=== PATIENT | male | born 1935 | race Caucasian/White ===

== ENCOUNTER 2021-01-18 16:08 | Inpatient (IN) | payer MEDICARE, OTHER ==
[~2021-01-18] VITALS: Ht 177.8 cm; Wt 73.9 kg
--- NOTE | 2021-01-18 16:10 | NUR ---
[facility]IB [facility],ALTERED/NOT COMMUNICATING WHEN STAFF WENT TO SEE HIM AT 1430. PATIENT A/OXO. ON 15LPM VIA NRB WITH SPO2 OF 90%. PLACED ON THE TEST LAB TECHNICIAN.
--- NOTE | 2021-01-18 16:33 | NUR ---
ETOMIDATE AND AMANDA GIVEN VIA IV.
--- NOTE | 2021-01-18 16:40 | NUR ---
PATIENT INTUBATED, ET SIZE 7.5, WITH 24CM ON THE LIP. ALBERT. CHEST RISE, + COLOR CHANGE.
--- NOTE | 2021-01-18 16:50 | NUR ---
NG INSERTED ON THE RIGHT NOSTRIL 60CM ON THE TIP OF NOSE.
--- NOTE | 2021-01-18 16:52 | NUR ---
ATTEMPTED TO INSERT A GONCALVES CATHETER, MET WITH RESISTANCE, INFORMED DR. MARTINEZ.
[2021-01-18] MEDS ORDERED: FERR300L GT (16:56)
[2021-01-18] MEDS ORDERED: AMLO10TA4 GT (16:56)
[2021-01-18] MEDS ORDERED: BICA50TA8 GT (16:56)
[2021-01-18] MEDS ORDERED: ATOR10TA GT (16:56)
[2021-01-18] MEDS ORDERED: TIMO5SOL11 EACHEYE (16:56)
[2021-01-18] MEDS ORDERED: FOLI0.4T6 GT (16:56)
[2021-01-18] MEDS ORDERED: BISA10SU11 RC (16:56)
[2021-01-18] MEDS ORDERED: ESCI10TA GT (16:56)
[2021-01-18] MEDS ORDERED: ACET-868 GT (16:56)
[2021-01-18] MEDS ORDERED: BRIM5DRO3 EACHEYE (16:56)
[2021-01-18] MEDS ORDERED: ASPI-1169 GT (16:56)
[2021-01-18] MEDS ORDERED: PIPE3.379 IV (16:56)
[2021-01-18] MEDS ORDERED: DOCU50LI GT (16:56)
[2021-01-18] MEDS ORDERED: LISI-768 GT (16:56)
[2021-01-18] MEDS ORDERED: LATA2.5D15 EACHEYE (16:56)
[2021-01-18] MEDS ORDERED: MAGN400O6 GT (16:56)
[2021-01-18] MEDS ORDERED: PANT40SU2 GT (16:56)
[2021-01-18] MEDS ORDERED: LORA10TA7 GT (16:56)
[2021-01-18] MEDS ORDERED: BACL10TA GT (16:56)
[2021-01-18] MEDS ORDERED: PYRI25TA4 GT (16:56)
[2021-01-18] MEDS ORDERED: ACET-2605 GT (16:56)
[2021-01-18] MEDS ORDERED: NA P133E RC (16:56)
[2021-01-18] MEDS ORDERED: VANC1PLA9 IV (16:56)
[2021-01-18 17:03] LABS: BASOPHILS % (AUTO) 0.6 % (0.0-2.0); EOSINOPHILS % (AUTO) 0.4 % (0.0-6.0); HEMATOCRIT 33 % (39-51); LYMPHOCYTES # (AUTO) 0.5 /CMM (0.8-4.8); MEAN CORPUSCULAR HGB CONC 33 g/dl (31.0-36.0); MEAN CORPUSCULAR VOLUME 96 fL (80-96); MONOCYTES # (AUTO) 0.4 /CMM (0.1-1.30); MONOCYTES % (AUTO) 13.3 % (2.0-12.0); NEUTROPHILS # (AUTO) 2.2 /CMM (1.8-8.9); NEUTROPHILS % (AUTO) 70.7 % (43.0-81.0); PLATELET COUNT (AUTO) 232 /CMM (150-450); RED BLOOD CELL COUNT(AUTO) 3.47 MIL/uL (4.5-6.0); WHITE BLOOD COUNT (AUTO) 3.1 K/uL (4.3-11.0)
[2021-01-18 17:10] LABS: CALCIUM, SERUM 8.4 mg/dL (8.5-10.1); CREATININE 1.1 mg/dL (0.6-1.3)
[2021-01-18 17:16] LABS: ALBUMIN 2.3 g/dL (3.4-5.0); BILIRUBIN,DIRECT 0.2 mg/dL (0.0-0.2); BILIRUBIN,TOTAL 0.3 mg/dL (0.2-1.0); TOTAL PROTEIN, SERUM 6.4 g/dL (6.4-8.2)
--- NOTE | 2021-01-18 17:22 | NUR ---
RN FOR MIDLINE AT BEDSIDE FOR INSERTION.
[2021-01-18] MEDS ORDERED: VANCOMYCIN 1 GM in IV D5W 250 ML IV ONE (17:30)
[2021-01-18] MEDS ORDERED: MEROPENEM 1,000 MG in IV NS 0.9% 100 ML IV ONE (17:30)
[2021-01-18 17:42] LABS: ABG BASE EXCESS 3.4 mmol/L; ABG OXYGEN SATURATION 96.3 % (92.0-98.5); ABG PCO2 51.4 mmHg (35.0-45.0); ABG PH 7.376 (7.350-7.450); ABG PO2 94.4 mmHg (75.0-100.0); AaDO2 567.2 mmHg; COHb 0.3 % (0.5-1.5); MetHb 0.7 % (0.0-1.5); O2Hb 95.3 % (94.0-97.0); PEEP,BG 5 cm H2O; SITE, ABG Right Radial
--- NOTE | 2021-01-18 17:50 | NUR ---
RN UNABLE TO INSERT MIDLINE. CALLED ANOTHER RN.
[2021-01-18] MEDS ORDERED: MIDAZOLAM HCL 100 MG in IV NS 0.9% 80 ML IV PRN (18:00)
[2021-01-18] MEDS ORDERED: IV NS 0.9% 1,000 ML BAG IV ONE (18:00)
[2021-01-18] MEDS ORDERED: FENTANYL CITRAT IV 2,500 MCG in IV NS 0.9% 200 ML IV PRN (18:00)
--- NOTE | 2021-01-18 18:18 | NUR ---
PATIENT CAME BACK FROM CT. VSS
--- NOTE | 2021-01-18 18:21 | NUR ---
PATIENT EYES REMAINS CLOSED, NON-VERBAL, ET TUBE IN PLACED. TOLERATING CURRENT VENT SETTINGS.
--- NOTE | 2021-01-18 18:30 | NUR ---
RT NOTE, PT. 85 Y OLD MALE REC. IN ER # 8 ALTERED STATUS. X2 RT AT THE BEDSIDE. ASSISTED DR. MARTINEZ FOR INTUBATION, ETT # 7.5 @ 24 CM LIP LINE. GOOD COLOR EXCHANGED NOTED, EQUAL CHEST RISE. PLACED ON VENT WITH NOTED SETTINGS, ALARMS ARE SET AND FUNCTIONAL, VENT PLUGGED INTO RED OUTLET, AMBU BAG REMAIN AT THE BEDSIDE. SUX'D FOR MOD. AMT YELLOW SECRETIONS, POST ABG DONE AND RESULTS READ BACK TO DR. MARTINEZ NO CHANGES PT. TRANSFERRED TO CT SCAN AND BACK TO ER # 8 PT. REMAIN STABLE, REPORT WILL PASS TO PM SHIFT. Addendum: 01/18/21 at 1833 by BLAYNE TA RT Amended: Links added.
[2021-01-18] MEDS ORDERED: POTASSIUM CL. PREMIX PERIPHER. 100 ML ONE ×2 (18:41→19:01)
[2021-01-18] MEDS ORDERED: ETOMIDATE 2 MG/ML VIAL IV ONE (18:45)
[2021-01-18] MEDS: POTASSIUM CL. PREMIX PERIPHER. 50 ML IV SCH ×4 (18:48→22:08)
[2021-01-18] MEDS ORDERED: MAGNESIUM HYDROXIDE 30 ML UDC GT PRN (19:00)
[2021-01-18] MEDS ORDERED: ACETAMINOPHEN 650 MG/SUPP.RECT RC PRN (19:00)
[2021-01-18] MEDS ORDERED: NA PHOS,M-B/NA PHOS,DI-BA 1 EA ENEMA RC PRN (19:00)
--- NOTE | 2021-01-18 19:00 | NUR ---
MYLES NEWBERRY GAVE CONSENT FOR A PICC LINE VIA TELEPHONE WITNESSED BY ANOTHER RN.
--- NOTE | 2021-01-18 19:06 | NUR ---
REPORT GIVEN TO HELEN TELLEZ FOR SANDY
--- NOTE | 2021-01-18 19:14 | NUR ---
PICC LINE NURSE AT BEDSIDE. DR. MARTINEZ SIGNED CONSENT FOR PROCEDURE.
--- NOTE | 2021-01-18 19:50 | NUR ---
ADMITTED PT FROM ER VIA [facility], ON ETT/VENT SETTING PER MD FIO2 100% SPO2 100% HAVE MK PICCLINE WITH ONGOING KCL 10 MEQ IV @ 50ML/HR INFUSING WELL, SAFELY TRANSFER FROM [facility] TO BED, HEAD TO TOE ASSESSMENT DONE, INITIAL ASSESSMENT DONE, PT HAVE GTUBE CLAMPED, PLACEMENT WAS CHECKED AND VERIFIED, PT HAVE BILATERAL WRIST SOFT RESTRAINTS FOR ETT TUBE EXTUBATION PREVENTION CIRCULATION WILL CHECKED REGULARLY, BED ON LOWEST POSITION AND LOCKED SIDE RAILS UP X 2 WILL CONT TO MONITOR
--- NOTE | 2021-01-18 19:52 | NUR ---
PT TRANSFERED PER ACLS PROTOCOL
[2021-01-18 20:00] VITALS: BP 140/96
[2021-01-18] MEDS: PROPOFOL 100 ML IV PRN (20:29)
[2021-01-18] MEDS: IV 1/2NS 1000 ML 1,000 ML IV PRN (20:30)
[2021-01-18] MEDS ORDERED: IV NS 0.9% 250 ML IV PRN (20:30)
[2021-01-18] MEDS: ENOXAPARIN SODIUM 40 MG/0.4 ML DISP.SYRIN SQ SCH (20:31)
[2021-01-18 21:00] VITALS: BP 106/55
[2021-01-18] MEDS ORDERED: MEROPENEM 1 G in IV NS 0.9% 100 ML IV SCH (21:00)
[2021-01-18 22:00] VITALS: BP 113/59
[2021-01-18] MEDS ORDERED: ATORVASTATIN 10 MG TABLET GT SCH (22:00)
--- NOTE | 2021-01-18 22:00 | NUR ---
PER ZACH PATHAK SURVEY CAD TECHNICIAN PT RECEIVED 2 DOSE OF PFIZER COVID VACCINE 1ST DOSE 09/03/2020 AND 2ND DOSE IS 09/24/2020
--- NOTE | 2021-01-18 22:01 | NUR ---
Patient is admitted to ICU intubated/sedated. He resides at [facility] [phone]. He requires assistance with adl's. Will continue to monitor for dc planning needs once stable. Addendum: 01/18/21 at 2202 by EDIE KENNY RN Amended: Links added.
[2021-01-18] MEDS: LATANOPROST EYE DROP 0.005% 2.5 ML BOTTLE EACHEYE SCH (22:09)
[2021-01-18] MEDS: ATORVASTATIN 40 MG TABLET GT SCH (22:09)
[2021-01-18 23:00] VITALS: BP 117/51
[2021-01-19] VITALS (24 sets, daily range): BP systolic 95–136; BP diastolic 49–67
--- NOTE | 2021-01-19 00:27 | NUR ---
PT STILL ON ETT/VENT SETTING PER MD FIO2 80% SPO2 100% STILL SEDATED WITH PROPOFOL @ 25MCG/KG/MIN NO SIGN OF ANY RESPIRATORY DISTRESS, WILL CONT TO MONITOR
[2021-01-19] MEDS: MEROPENEM 1 G in IV NS 0.9% 100 ML IV SCH ×3 (01:10→17:13)
[2021-01-19] MEDS: PROPOFOL 100 ML IV PRN ×3 (04:22→17:52)
[2021-01-19 04:24] LABS: BASOPHILS % (AUTO) 0.3 % (0.0-2.0); EOSINOPHILS % (AUTO) 0.3 % (0.0-6.0); HEMATOCRIT 29 % (39-51); HEMOGLOBIN 9.7 g/dL (13.5-17.5); LYMPHOCYTES # (AUTO) 0.6 /CMM (0.8-4.8); LYMPHOCYTES % (AUTO) 12.5 % (20.0-44.0); MEAN CORPUSCULAR HGB CONC 33 g/dl (31.0-36.0); MEAN CORPUSCULAR VOLUME 95 fL (80-96); MONOCYTES # (AUTO) 0.4 /CMM (0.1-1.30); MONOCYTES % (AUTO) 9.5 % (2.0-12.0); NEUTROPHILS # (AUTO) 3.6 /CMM (1.8-8.9); NEUTROPHILS % (AUTO) 77.4 % (43.0-81.0); PLATELET COUNT (AUTO) 204 /CMM (150-450); RED BLOOD CELL COUNT(AUTO) 3.05 MIL/uL (4.5-6.0); WHITE BLOOD COUNT (AUTO) 4.7 K/uL (4.3-11.0)
[2021-01-19 04:48] LABS: CALCIUM, SERUM 8.3 mg/dL (8.5-10.1); CREATININE 0.8 mg/dL (0.6-1.3); POTASSIUM 3.6 mmol/L (3.5-5.1)
--- NOTE | 2021-01-19 06:43 | NUR ---
PT ON BED SEDATED STILL ON ETT/VENT SETTING PER MD FIO2 60% SPO2 97% NO SIGN AND SYMPTOMS OF RESPIRATORY DISTRESS, NO PAIN NOTED, ON DIPRIVAN @ 25MCG/KG/MIN AND 1/2 NS @ 75ML/HR INFUSING WELL VIA MK PICCLINE, TELE MONITOR READS SINUS RHYTHM WITH PVCS 80'S , STILL HAVE BILATERAL WRIST SOFT RESTRAINTS FOR SELF EXTUBATION PREVENTION CIRCULATION WAS CHECKED AND WNL, BED ON LOWEST POSITION AND LOCKED SIDE RAILS UP X2 CALL LIGHT WITHIN REACH WILL ENDORSED TO AM SHIFT NURSE
--- NOTE | 2021-01-19 07:05 | NUR ---
RN NOTES RECEIVED PT ON BED, INTUBATED, SEDATED, ON DIPRIVAN AT 25MCG/KG/MIN, RESPONDS TO PAINFUL STIMULI , TOLERAING VENT SETTING WELL, O2 SAT WNL, 1/2 NS @ 75ML/HR INFUSING WELL VIA MK PICC LINE, ON TELE SR HR IN 80'S , BILATERAL WRIST SOFT RESTRAINTS ON FOR PT SAFETY, AND FOR SELF EXTUBATION PREVENTION CIRCULATION WAS CHECKED AND WNL, BED ON LOWEST POSITION AND LOCKED SIDE RAILS UP X3 CALL LIGHT WITHIN EASY REACH , WILL CONTINUE TO MONITOR .
[2021-01-19 08:13] LABS: ABG BASE EXCESS 2.1 mmol/L; ABG OXYGEN SATURATION 98.6 % (92.0-98.5); ABG PCO2 35.3 mmHg (35.0-45.0); ABG PH 7.475 (7.350-7.450); ABG PO2 134.3 mmHg (75.0-100.0); AaDO2 254.7 mmHg; COHb 0.3 % (0.5-1.5); MetHb 0.4 % (0.0-1.5); O2Hb 97.9 % (94.0-97.0); SITE, ABG Right Radial
[2021-01-19] MEDS: FERROUS SULFATE UDC 300 MG/5 ML UDC GT SCH ×2 (08:23→16:53)
[2021-01-19] MEDS: LORATADINE 10 MG TABLET GT SCH (08:23)
[2021-01-19] MEDS: DOCUSATE SODIUM LIQ 100 MG/10 ML UDC GT SCH ×2 (08:23→16:53)
[2021-01-19] MEDS: ASPIRIN 81 MG TAB.CHEW GT SCH (08:24)
[2021-01-19] MEDS: PANTOPRAZOLE 40 MG/PACK PACK GT SCH (08:24)
[2021-01-19] MEDS: BISACODYL SUPP (10 MG) 10 MG/SUPP.RECT SUPP.RECT RC SCH (08:24)
[2021-01-19] MEDS: ESCITALOPRAM OXALATE (10 MG) 10 MG TABLET GT SCH (08:25)
[2021-01-19] MEDS: BACLOFEN (10 MG) 10 MG TABLET GT SCH (08:25)
[2021-01-19] MEDS: FOLIC ACID 1 MG TABLET GT SCH (08:25)
[2021-01-19] MEDS: BICALUTAMIDE 50 MG TABLET GT SCH (08:28)
[2021-01-19] MEDS: PYRIDOXINE HCL 50 MG TABLET GT SCH (08:29)
[2021-01-19] MEDS: TIMOLOL 0.5% SOLN OPHTH 5 ML BOTTLE EACHEYE SCH ×2 (08:29→16:54)
[2021-01-19] MEDS: BRIMONIDINE TARTRATE OPHT SOLN 5 ML BOTTLE OP SCH ×2 (08:30→16:54)
[2021-01-19] MEDS ORDERED: TIMOLOL -XE 0.5% 5 ML BOTTLE EACHEYE SCH (09:00)
[2021-01-19] MEDS: LISINOPRIL (5MG) 5 MG TABLET GT SCH (09:00)
[2021-01-19] MEDS ORDERED: VANCOMYCIN 1 GM in IV D5W 250 ML IV SCH (09:00)
[2021-01-19] MEDS ORDERED: PANTOPRAZOLE 40 MG VIAL IV SCH (09:00)
[2021-01-19] MEDS: AMLODIPINE BESYLATE 10 MG TABLET GT SCH (09:00)
[2021-01-19] MEDS: IV 1/2NS 1000 ML 1,000 ML IV PRN ×2 (09:23→23:57)
[2021-01-19] MEDS ORDERED: VANCOMYCIN 1.25 GM in IV D5W 250 ML IV SCH (12:00)
--- NOTE | 2021-01-19 12:00 | NUR ---
RN NOTES PT IS SEDATED , ET TUBE CARE AND SUCTIONING DONE , DIPRIVAN AT 25MCG/KG/MIN RUNNING , CONTINUE TO MONITOR
--- NOTE | 2021-01-19 18:00 | NUR ---
RN NOTES PT REMANINS INTUBATED AND SEDATED, ON DIPRIVAN AT 25MCG/KG/MIN RUNNING, ON TELE SR HR IN 60'S, GT CLAMPED AT THIS TIME, R UPPER ARM PICC LINE SITE CLEAN, DRY AND INTACT, IVF AT 75CC/HR RUNNING , SR UP x3, CALL LIGHT WITHIN EASY REACH, BED LOCKED AND IN LOWEST POSITION, WILL ENDORSE TO DROP HAMMER OPERATOR HELPER NURSE FOR CONTINUITY OF CARE .
--- NOTE | 2021-01-19 19:05 | NUR ---
RECEIVED PT ON BED SEDATED ON ETT/VENT SETTING PER MD FIO2 40% SPO2 98% NO SIGN OF DISTRESS AND PAIN NOTED, BEDSIDE MONITOR READS SINUS RHYTHM 80'S HAVE MK PICC WITH ONGOING 1/2 NS @ 75ML/HR AND DIPRIVAN @ 25MCG/KG/MIN INFUSING WELL, GONCALVES CATHETER DRAIN ANNAMARIE URINE VIA GRAVITY, HAVE BILATERAL WRIST RESTRAINTS CIRCULATION WILL BE CHECKED REGULARLY, BED ON LOWEST POSITION AND LOCKED SIDE RAILS UP X2 CALL LIGHT WITHIN REACH WILL CONT TO MONITOR
[2021-01-19] MEDS: LATANOPROST EYE DROP 0.005% 2.5 ML BOTTLE EACHEYE SCH (21:15)
[2021-01-19] MEDS: ATORVASTATIN 40 MG TABLET GT SCH (21:15)
[2021-01-19] MEDS: Z GUARD REMEDY 2 OZ OINT TP SCH (21:15)
[2021-01-19] MEDS: ENOXAPARIN SODIUM 40 MG/0.4 ML DISP.SYRIN SQ SCH (21:16)
[2021-01-20] VITALS (29 sets, daily range): BP systolic 110–147; BP diastolic 55–75
[2021-01-20] MEDS: PROPOFOL 100 ML IV PRN ×4 (01:05→21:41)
[2021-01-20] MEDS: MEROPENEM 1 G in IV NS 0.9% 100 ML IV SCH ×3 (01:05→17:25)
--- NOTE | 2021-01-20 01:15 | NUR ---
PT ON BED SEDATED STILL ON ETT/VENT SETTING PER MD FIO2 40% SPO2 98% NO SIGN OF ANY DISTRESS AND PAIN NOTED, ALL DUE MEDS GIVEN ORDERED, WILL CONT TO MONITOR
[2021-01-20 04:16] LABS: BASOPHILS % (AUTO) 0.3 % (0.0-2.0); EOSINOPHILS % (AUTO) 6.1 % (0.0-6.0); HEMATOCRIT 28 % (39-51); HEMOGLOBIN 9.3 g/dL (13.5-17.5); LYMPHOCYTES # (AUTO) 0.5 /CMM (0.8-4.8); LYMPHOCYTES % (AUTO) 6.9 % (20.0-44.0); MEAN CORPUSCULAR HGB CONC 34 g/dl (31.0-36.0); MEAN CORPUSCULAR VOLUME 95 fL (80-96); MONOCYTES # (AUTO) 0.5 /CMM (0.1-1.30); MONOCYTES % (AUTO) 7.3 % (2.0-12.0); NEUTROPHILS # (AUTO) 5.7 /CMM (1.8-8.9); NEUTROPHILS % (AUTO) 79.4 % (43.0-81.0); PLATELET COUNT (AUTO) 212 /CMM (150-450); RED BLOOD CELL COUNT(AUTO) 2.91 MIL/uL (4.5-6.0); WHITE BLOOD COUNT (AUTO) 7.2 K/uL (4.3-11.0)
[2021-01-20 04:43] LABS: CALCIUM, SERUM 8.6 mg/dL (8.5-10.1); CREATININE 0.7 mg/dL (0.6-1.3); MAGNESIUM 1.9 mg/dL (1.8-2.4); PHOSPHORUS 1.7 mg/dL (2.5-4.9)
--- NOTE | 2021-01-20 06:00 | NUR ---
REPORTED TO DR. NEWTON RETAIL SHIFT SUPERVISOR ABOUT THE K+ 3 OF THE PT WITH ORDER FOR KCL 40 MEQ VIA GTUBE NOTED AND CARRIED OUT
--- NOTE | 2021-01-20 07:12 | NUR ---
PT ON BED SEDATED STILL ON ETT/VENT SETTING PER MD FIO2 40% SPO2 93% NO SIGN AND SYMPTOMS OF RESPIRATORY DISTRESS, NO PAIN NOTED, ON DIPRIVAN @ 25MCG/KG/MIN AND 1/2 NS @ 75ML/HR INFUSING WELL VIA MK PICCLINE, TELE MONITOR READS SINUS RHYTHM WITH PVCS 80'S , STILL HAVE BILATERAL WRIST SOFT RESTRAINTS FOR SELF EXTUBATION PREVENTION CIRCULATION WAS CHECKED AND WNL, BED ON LOWEST POSITION AND LOCKED SIDE RAILS UP X2 CALL LIGHT WITHIN REACH WILL ENDORSED TO AM SHIFT NURSE
--- NOTE | 2021-01-20 07:30 | NUR ---
RN OPENING NOTES Patient present in bed, sedated, on mechanical vent, tolerating settings well, SPO2 99%, no acute distress noted, no s/sx of pain or discomfort noted, NSR on tele-monitor, HR of 91, Kumar cath in place, draining yellow urine by gravity, G-tube noted in place, clumped, no residual noted, auscultated for placement, R UA PICC line in place, infusing Diprivan @ 25 mcg/kg/min and NS 0.9% @ 75 cc/hr, intact, patent, flushed, REJ line G20 noted, flushed and clumped, Safety precisions in place, bed alarm checked, alarms and IV pumps checked, patient placed comfortably, skin intact under restrains, will cont to monitor
--- NOTE | 2021-01-20 07:43 | NUR ---
vent changes below for weaning trial per dr. ro: simv 4 ps 15 fio2 40% peep +5 spo2 97% HR 86- 88 bpm RR 18 - 21 BPM Addendum: 01/20/21 at 0745 by CLAUDIA BUSH RT Amended: Links added.
--- NOTE | 2021-01-20 08:20 | NUR ---
RN NOTE NG TUBE PLACED INTO L NARES, SIZE 16, VERIFIED WITH AUSCULTATION, PLACED ORDER FOR XRAY Addendum: 01/20/21 at 0821 by Emely Boyce RN DISREGARD, WRONG PATIENT NOTE
[2021-01-20] MEDS: VANCOMYCIN 1 GM in IV D5W 250 ML IV SCH (08:39)
--- NOTE | 2021-01-20 09:00 | NUR ---
placed back to AC 14, VT 500, FIO2 40%, PEEP +5 DUE TO 44 RESPIRATIONS. RN NOTIFIED. Addendum: 01/20/21 at 0902 by CLAUDIA BUSH RT Amended: Links added.
[2021-01-20] MEDS: LORATADINE 10 MG TABLET GT SCH (09:28)
[2021-01-20] MEDS: ASPIRIN 81 MG TAB.CHEW GT SCH (09:28)
[2021-01-20] MEDS: POTASSIUM CHLORIDE 20 MEQ POWDER PACKET GT SCH (09:28)
[2021-01-20] MEDS: PANTOPRAZOLE 40 MG/PACK PACK GT SCH (09:28)
[2021-01-20] MEDS: FOLIC ACID 1 MG TABLET GT SCH (09:29)
[2021-01-20] MEDS: AMLODIPINE BESYLATE 10 MG TABLET GT SCH (09:29)
[2021-01-20] MEDS: ESCITALOPRAM OXALATE (10 MG) 10 MG TABLET GT SCH (09:29)
[2021-01-20] MEDS: BACLOFEN (10 MG) 10 MG TABLET GT SCH (09:29)
[2021-01-20] MEDS: BRIMONIDINE TARTRATE OPHT SOLN 5 ML BOTTLE OP SCH ×2 (09:30→16:33)
[2021-01-20] MEDS: BISACODYL SUPP (10 MG) 10 MG/SUPP.RECT SUPP.RECT RC SCH (09:30)
[2021-01-20] MEDS: FERROUS SULFATE UDC 300 MG/5 ML UDC GT SCH ×2 (09:30→16:32)
[2021-01-20] MEDS: DOCUSATE SODIUM LIQ 100 MG/10 ML UDC GT SCH ×2 (09:30→16:33)
[2021-01-20] MEDS: LISINOPRIL (5MG) 5 MG TABLET GT SCH (09:30)
[2021-01-20] MEDS ORDERED: Sodium Phosphate 30 MMOL in IV NS 0.9% 250 ML IV SCH (09:30)
[2021-01-20] MEDS: Z GUARD REMEDY 2 OZ OINT TP SCH ×2 (09:30→20:46)
[2021-01-20] MEDS: PYRIDOXINE HCL 50 MG TABLET GT SCH (09:32)
[2021-01-20] MEDS: BICALUTAMIDE 50 MG TABLET GT SCH (09:32)
[2021-01-20] MEDS: TIMOLOL 0.5% SOLN OPHTH 5 ML BOTTLE EACHEYE SCH ×2 (09:33→16:33)
[2021-01-20] MEDS ORDERED: JEVITY 1.2 CAL 1,000 ML BOTTLE GT PRN (11:30)
--- NOTE | 2021-01-20 14:05 | NUR ---
Initiated tube feeding Jevity 1.2 @ 20cc/hr, will cont to monitor
[2021-01-20] MEDS: IV 1/2NS 1000 ML 1,000 ML IV PRN (15:34)
--- NOTE | 2021-01-20 15:45 | NUR ---
RN NOTE Patient cleaned, repositioned tolerating tube feeding , bowel sounds active, BM and flatus present
--- NOTE | 2021-01-20 18:50 | NUR ---
RN CLOSING NOTES Patient remains in bed, no acute changes during shift, provided with medications, repositioning, cleaning, Tolerating Diprivan drip @ 30 mcg/kg/min well, sedation vacation done with unsuccessful vent weaning; back to previous vent setting , tolerating well, SPO2 97%; Jevity 1.2 started @ 30 ml/hr for 24h, with goal of 55 ml/hr, no residual noted, tolerating rate well, IV lines patent, flushed, intact, Kumar cath patent, safety precisions in place, bed locked, in lowest position, HOB elevated, will endorse to PM shift RN for CO
--- NOTE | 2021-01-20 19:40 | NUR ---
Received patient sedated on Diprivan gtt at 30 mcg/kg/min via cyndy picc line. Intubated orally to mechanical vent and Afebrile.settings well tolerated.SR per tele monitoring.Afebrile. Hemodynamically stable.GT feeding in progress at 30 ml/hr residual 5 ml.Maintained HOB elevated.FC to gravity.No acute distress noted.Turned and repositioned.
[2021-01-20] MEDS: ENOXAPARIN SODIUM 40 MG/0.4 ML DISP.SYRIN SQ SCH (20:46)
[2021-01-20] MEDS: LATANOPROST EYE DROP 0.005% 2.5 ML BOTTLE EACHEYE SCH (21:04)
[2021-01-20] MEDS: ATORVASTATIN 40 MG TABLET GT SCH (21:04)
[2021-01-21] VITALS (28 sets, daily range): BP systolic 83–166; BP diastolic 51–91
--- NOTE | 2021-01-21 | NUR ---
Patient vital signs remains stable. Tolerating feeding well.Turned and repositioned.
[2021-01-21] MEDS: MEROPENEM 1 G in IV NS 0.9% 100 ML IV SCH ×3 (02:09→17:18)
[2021-01-21 04:41] LABS: BASOPHILS % (AUTO) 0.4 % (0.0-2.0); EOSINOPHILS % (AUTO) 5.9 % (0.0-6.0); HEMATOCRIT 28 % (39-51); HEMOGLOBIN 9.3 g/dL (13.5-17.5); LYMPHOCYTES # (AUTO) 0.5 /CMM (0.8-4.8); LYMPHOCYTES % (AUTO) 8.9 % (20.0-44.0); MEAN CORPUSCULAR HGB CONC 34 g/dl (31.0-36.0); MEAN CORPUSCULAR VOLUME 94 fL (80-96); MONOCYTES # (AUTO) 0.4 /CMM (0.1-1.30); MONOCYTES % (AUTO) 7.3 % (2.0-12.0); NEUTROPHILS # (AUTO) 4.7 /CMM (1.8-8.9); NEUTROPHILS % (AUTO) 77.5 % (43.0-81.0); PLATELET COUNT (AUTO) 236 /CMM (150-450); RED BLOOD CELL COUNT(AUTO) 2.91 MIL/uL (4.5-6.0)
[2021-01-21] MEDS: PROPOFOL 100 ML IV PRN (04:41)
[2021-01-21] MEDS: IV 1/2NS 1000 ML 1,000 ML IV PRN ×2 (04:41→23:00)
[2021-01-21 04:58] LABS: CALCIUM, SERUM 8.6 mg/dL (8.5-10.1); CREATININE 0.7 mg/dL (0.6-1.3); PHOSPHORUS 2.5 mg/dL (2.5-4.9); POTASSIUM 3.1 mmol/L (3.5-5.1)
--- NOTE | 2021-01-21 06:40 | NUR ---
NO significant change on patient status all throughout the shift.VS remains table.Bathed complete linens changed .Turned and repositioned.All due medications administered.No acute distress noted.All needs met.Will endorse to day shift for SANDY.
--- NOTE | 2021-01-21 08:00 | NUR ---
OPENING NOTE: REPORT RECEIVED FROM EDIE TELLEZ. PT INTUBATED AND SEDATED WITH RESTRAINTS. DR. PANCHAL NOTIFIED OF NEED FOR CURRENT RESTRAINT ORDER. GONCALVES CATHETER DRAINING WITHOUT DIFFICULTY. TUBE FEEDING INFUSING PER NG TUBE PER MD ORDERS. PROPOFOL INFUSING AT 30MCG/KG/MIN PER MD ORDERS FOR SEDATION. PT CHECKED ON HOURLY AND PRN BY NURSING STAFF.
[2021-01-21] MEDS: VANCOMYCIN 1 GM in IV D5W 250 ML IV SCH (08:40)
--- NOTE | 2021-01-21 08:42 | NUR ---
PER DR GREENE PROPOFOL TO BE TURNED OFF AT THIS TIME TO ASSESS PATIENTS NEURO STATUS. TUBE FEEDING TURNED OFF AT THIS TIME FOR SEDATION VACATION.
[2021-01-21] MEDS: PYRIDOXINE HCL 50 MG TABLET GT SCH (09:37)
[2021-01-21] MEDS: FERROUS SULFATE UDC 300 MG/5 ML UDC GT SCH ×2 (09:37→17:18)
[2021-01-21] MEDS: BICALUTAMIDE 50 MG TABLET GT SCH (09:37)
[2021-01-21] MEDS: DOCUSATE SODIUM LIQ 100 MG/10 ML UDC GT SCH ×2 (09:37→17:18)
[2021-01-21] MEDS: POTASSIUM CHLORIDE 20 MEQ POWDER PACKET GT SCH (09:38)
[2021-01-21] MEDS: PANTOPRAZOLE 40 MG/PACK PACK GT SCH (09:38)
[2021-01-21] MEDS: BISACODYL SUPP (10 MG) 10 MG/SUPP.RECT SUPP.RECT RC SCH (09:38)
[2021-01-21] MEDS: ASPIRIN 81 MG TAB.CHEW GT SCH (09:39)
[2021-01-21] MEDS: ESCITALOPRAM OXALATE (10 MG) 10 MG TABLET GT SCH (09:39)
[2021-01-21] MEDS: LORATADINE 10 MG TABLET GT SCH (09:39)
[2021-01-21] MEDS: AMLODIPINE BESYLATE 10 MG TABLET GT SCH (09:39)
[2021-01-21] MEDS: BACLOFEN (10 MG) 10 MG TABLET GT SCH (09:39)
[2021-01-21] MEDS: FOLIC ACID 1 MG TABLET GT SCH (09:39)
[2021-01-21] MEDS: LISINOPRIL (5MG) 5 MG TABLET GT SCH (09:39)
[2021-01-21] MEDS: TIMOLOL 0.5% SOLN OPHTH 5 ML BOTTLE EACHEYE SCH ×2 (09:40→17:19)
[2021-01-21] MEDS: Z GUARD REMEDY 2 OZ OINT TP SCH ×2 (09:40→21:16)
[2021-01-21] MEDS: BRIMONIDINE TARTRATE OPHT SOLN 5 ML BOTTLE OP SCH ×2 (09:40→17:19)
--- NOTE | 2021-01-21 10:00 | NUR ---
PER DR GREENE PROPOFOL IS TO STAY OFF UNLESS PATIENT GETS AGITATED. PT WAKES UP, OPENS EYES BUT DOES NOT FOLLOW COMMANDS. TUBE FEEDING RESUMED AT THIS TIME. URINE SAMPLE SENT TO LAB PER MD ORDERS.
[2021-01-21] MEDS: POTASSIUM CL. PREMIX PERIPHER. 50 ML IV SCH ×4 (11:25→15:04)
[2021-01-21] MEDS: JEVITY 1.2 CAL 1,000 ML BOTTLE GT PRN (17:18)
[2021-01-21] MEDS: ACETAMINOPHEN 650 MG/20.3 ML UDC GT PRN (17:18)
--- NOTE | 2021-01-21 19:28 | NUR ---
END OF SHIFT NOTE: PER HOME CAREGIVER THAT WAS HERE VISITING AROUND 1700 PT HAD A STROKE APPROXIMATELY 2 WEEKS AGO. SINCE THE STROKE PT HAS NOT BEEN ABLE TO TALK OR COMMUNICATE. PRIOR TO THE STROKE PT WAS ALERT OX4 WITH NO DIFFICULTY TALKING. NO BM THIS SHIFT. TUBE FEEDING INCREASED TO GOAL RATE OF 55 ML/HR AT 1800 PER MD ORDERS. DIPRIVAN CONTINUES TO BE OFF. PT AWAKE, MAKES EYE CONTACT, UNABLE TO COMMUNICATE NEEDS, DOES NOT FOLLOW COMMANDS. PT CHECKED ON HOURLY AND PRN BY NURSING STAFF.
--- NOTE | 2021-01-21 19:45 | NUR ---
ICU/SLUDGE MILL OPERATOR RECIEVED REPORT FROM DAY NURSE. SEE FLOWSHEET FOR ASSESSMENT. SEE IV SPREAD SHEET FOR IV'S. PT WAS TURNED AND REPOSITIONED FOR COMFORT AND CARE. WILL CONTINUE TO MONITOR THIS PT. NO ACUTE DISTRESS SEEN AT THIS TIME.
--- NOTE | 2021-01-21 20:00 | NUR ---
ICU/DISPENSING OPERATOR FOUND PT WITH THICK YELLOWISH COLES SECRETIONS, ALSO LARGE AMOUNT OF RESIDUALS OF FEEDING. TURNED OFF FEEDINGS. WILL MONITOR
[2021-01-21] MEDS: ENOXAPARIN SODIUM 40 MG/0.4 ML DISP.SYRIN SQ SCH (21:15)
[2021-01-21] MEDS: ATORVASTATIN 40 MG TABLET GT SCH (21:56)
[2021-01-21] MEDS: LATANOPROST EYE DROP 0.005% 2.5 ML BOTTLE EACHEYE SCH (21:56)
--- NOTE | 2021-01-21 22:20 | NUR ---
ICU/WHIPPER BEATER PT WAS GIVEN ORAL CARE AT THIS TIME, ALONG WITH PM CARE. PT TOLERATED THIS WELL, REMAINS ON CURRENT VENT SETTINGS, WITH SATURATION AT 100%. PT WAS THEN TURNED AND REPOSITIONED FOR COMFORT AND CARE. WILL CONTINUE TO MONITOR THIS PT. NO ACUTE DISTRESS SEEN AT THIS TIME.
[2021-01-22] VITALS (25 sets, daily range): BP systolic 86–145; BP diastolic 38–80
--- NOTE | 2021-01-22 | NUR ---
ICU/RENTAL CAR DELIVERER TURNED BACK ON FEEDING AT 30ML NO RESIDUALS SEEN. WILL MONITOR THIS PT.
[2021-01-22] MEDS: MEROPENEM 1 G in IV NS 0.9% 100 ML IV SCH ×3 (02:02→18:10)
--- NOTE | 2021-01-22 02:30 | NUR ---
ICU/AGENCY APPOINTMENTS SUPERVISOR PT WAS GIVEN ORAL CARE AT THIS TIME, ALONG WITH AM CARE. PT TOLERATED THIS WELL, REMAINS ON CURRENT VENT SETTINGS, WITH SATURATION AT 100%. PT WAS THEN TURNED AND REPOSITIONED FOR COMFORT AND CARE. WILL CONTINUE TO MONITOR THIS PT. NO ACUTE DISTRESS SEEN AT THIS TIME.
[2021-01-22 04:26] LABS: BASOPHILS % (AUTO) 0.8 % (0.0-2.0); EOSINOPHILS % (AUTO) 4.1 % (0.0-6.0); HEMATOCRIT 29 % (39-51); HEMOGLOBIN 9.6 g/dL (13.5-17.5); LYMPHOCYTES # (AUTO) 0.8 /CMM (0.8-4.8); LYMPHOCYTES % (AUTO) 14.8 % (20.0-44.0); MEAN CORPUSCULAR HGB CONC 34 g/dl (31.0-36.0); MEAN CORPUSCULAR VOLUME 95 fL (80-96); MONOCYTES # (AUTO) 0.5 /CMM (0.1-1.30); MONOCYTES % (AUTO) 8.4 % (2.0-12.0); NEUTROPHILS # (AUTO) 4.1 /CMM (1.8-8.9); NEUTROPHILS % (AUTO) 71.9 % (43.0-81.0); PLATELET COUNT (AUTO) 288 /CMM (150-450); RED BLOOD CELL COUNT(AUTO) 3.01 MIL/uL (4.5-6.0); WHITE BLOOD COUNT (AUTO) 5.7 K/uL (4.3-11.0)
--- NOTE | 2021-01-22 04:35 | NUR ---
ICU/OPERATOR RECEPTIONIST AM LABS WERE DRAWN ALONG WITH THE MORNING XRAY, AWAIT FOR ANY ABNORMAL RESULTS.
[2021-01-22 05:06] LABS: SODIUM SERUM 137 mmol/L (136-145)
[2021-01-22 05:07] LABS: CALCIUM, SERUM 8.5 mg/dL (8.5-10.1); CARBON DIOXIDE 27 mmol/L (21-32); CHLORIDE 104 mmol/L (98-107); CREATININE 0.7 mg/dL (0.6-1.3); GLUCOSE 109 mg/dL (74-106); MAGNESIUM 1.8 mg/dL (1.8-2.4); PHOSPHORUS 2.4 mg/dL (2.5-4.9); UREA NITROGEN, BLOOD 10 mg/dL (7-18)
--- NOTE | 2021-01-22 07:45 | NUR ---
OPENING NOTE: REPORT RECEIVED FROM JOHANNA ROACH. TUBE FEEDING INFUSING AT 30ML/HR D/T HIGH RESIDUALS IN THE MIDDLE OF THE NIGHT. PT APPEARS TO BE MORE AWARE THAN YESTERDAY. PT MAKES EYE CONTACT AND FOLLOWS YOU WITH HIS EYES BUT DOES NOT FOLLOW COMMANDS, DOES NOT NOD OR SHAKE HEAD TO YES AND NO QUESTIONS. GONCALVES CATHETER DRAINING WITHOUT DIFFICULTY. PT CHECKED ON HOURLY AND PRN BY NURSING STAFF.
[2021-01-22] MEDS: PYRIDOXINE HCL 50 MG TABLET GT SCH (09:06)
[2021-01-22] MEDS: DOCUSATE SODIUM LIQ 100 MG/10 ML UDC GT SCH ×2 (09:07→18:10)
[2021-01-22] MEDS: BACLOFEN (10 MG) 10 MG TABLET GT SCH (09:07)
[2021-01-22] MEDS: FOLIC ACID 1 MG TABLET GT SCH (09:07)
[2021-01-22] MEDS: POTASSIUM CHLORIDE 20 MEQ POWDER PACKET GT SCH (09:07)
[2021-01-22] MEDS: BISACODYL SUPP (10 MG) 10 MG/SUPP.RECT SUPP.RECT RC SCH (09:07)
[2021-01-22] MEDS: PANTOPRAZOLE 40 MG/PACK PACK GT SCH (09:07)
[2021-01-22] MEDS: LISINOPRIL (5MG) 5 MG TABLET GT SCH (09:07)
[2021-01-22] MEDS: LORATADINE 10 MG TABLET GT SCH (09:07)
[2021-01-22] MEDS: ASPIRIN 81 MG TAB.CHEW GT SCH (09:08)
[2021-01-22] MEDS: ESCITALOPRAM OXALATE (10 MG) 10 MG TABLET GT SCH (09:08)
[2021-01-22] MEDS: FERROUS SULFATE UDC 300 MG/5 ML UDC GT SCH ×2 (09:08→18:10)
[2021-01-22] MEDS: BICALUTAMIDE 50 MG TABLET GT SCH (09:08)
[2021-01-22] MEDS: VANCOMYCIN 1 GM in IV D5W 250 ML IV SCH (09:08)
[2021-01-22] MEDS: AMLODIPINE BESYLATE 10 MG TABLET GT SCH (09:08)
[2021-01-22] MEDS: TIMOLOL 0.5% SOLN OPHTH 5 ML BOTTLE EACHEYE SCH ×2 (09:09→18:10)
[2021-01-22] MEDS: BRIMONIDINE TARTRATE OPHT SOLN 5 ML BOTTLE OP SCH ×2 (09:09→18:10)
[2021-01-22] MEDS: Z GUARD REMEDY 2 OZ OINT TP SCH ×2 (09:10→22:50)
[2021-01-22] MEDS: ACETAMINOPHEN 650 MG/20.3 ML UDC GT PRN (09:43)
--- NOTE | 2021-01-22 10:27 | NUR ---
WOUND CARE CONSULT: PT PRESENTS WITH SACRAL SCARRING, PRESENT ON ADMISSION. PT ALSO NOTED TO HAVE CONTRACTED EXTREMITIES. RECOMMENDATIONS MADE FOR SKIN PROTECTION. DISCUSSED WITH NURSING STAFF. FIRST STEP LOW AIRLOSS MATTRESS IS ON ORDER. IN AGREEMENT WITH PLAN OF CARE. Addendum: 01/22/21 at 1028 by RUI LANTIGUA WNDNU Amended: Links added.
[2021-01-22] MEDS ORDERED: NEUTRA PHOS 1 POWD.PACKET GT ONE (10:30)
--- NOTE | 2021-01-22 11:15 | NUR ---
Industrial Radiographer note: social services coordinator follow up to discuss discharge plans with patient's family. SW contacted patient's sister,Shae Jauregui, . Patient's sister stated that she is unsure at this time if patient should return to [facility]. MAURICIO provided Shae with contact information for SS and case management. MAURICIO notified ZOLTAN Meza of this update and stated that CM will continue to follow up with the patient's sister and discharge plans. No further SS intervention at this time, however, MAURICIO will remain available as needed.
[2021-01-22] MEDS: IV 1/2NS 1000 ML 1,000 ML IV PRN (14:45)
--- NOTE | 2021-01-22 16:16 | NUR ---
Polystyrene Molding Machine Tender note: Per request from ROSALINDA Pena, SS requested to determine patient's code status. MAURICIO contacted ROSALINDA Sanchez at [facility], , who stated that the patient is full code. MAURICIO spoke to patient's sister, Shae Jauregui, , who stated that she did not have paperwork documenting that she is the patient's DPOA. MAURICIO notified ROSALINDA Pena. SS will remain available as needed.
[2021-01-22] MEDS: JEVITY 1.2 CAL 1,000 ML BOTTLE GT PRN (18:09)
--- NOTE | 2021-01-22 19:36 | NUR ---
END OF SHIFT NOTE: PT HAD COPIOUS SECRETIONS FROM ETT TODAY REQUIRING FREQUENT SUCTIONING. PT ALERT, NO SEDATION. APPEARS TO UNDERSTAND COMMUNICATIONS BUT UNABLE TO RESPOND WITH NODS OR SHAKES OF HEAD OR EYE BLINKING. 2 BMS THIS SHIFT. TUBE FEEDING INFUSING AT 35ML/HR AT THIS TIME, GOAL OF 55ML/HR. TMAX THIS SHIFT 100.3, TYLENOL GIVEN X1. PHANI FROM THE CAREGIVER COMING CAME TODAY AND STATED THAT THEY WILL NOT BE ABLE TO HAVE STAFF COME STAY WITH PATIENT DURING THE DAY BECAUSE THE STAFF IS WORRIED ABOUT COVID EXPOSURE. PHANI EXPLAINED THAT TO THE PATIENT. PT CHECKED ON HOURLY AND PRN BY NURSING STAFF.
[2021-01-22] MEDS: ENOXAPARIN SODIUM 40 MG/0.4 ML DISP.SYRIN SQ SCH (22:46)
[2021-01-22] MEDS: ATORVASTATIN 40 MG TABLET GT SCH (22:47)
[2021-01-22] MEDS: LATANOPROST EYE DROP 0.005% 2.5 ML BOTTLE EACHEYE SCH (22:51)
[2021-01-23] VITALS (27 sets, daily range): BP systolic 82–141; BP diastolic 44–78
[2021-01-23] MEDS: MEROPENEM 1 G in IV NS 0.9% 100 ML IV SCH ×3 (02:14→17:18)
[2021-01-23 05:05] LABS: BASOPHILS % (AUTO) 0.5 % (0.0-2.0); EOSINOPHILS % (AUTO) 3.3 % (0.0-6.0); HEMATOCRIT 28 % (39-51); HEMOGLOBIN 9.4 g/dL (13.5-17.5); LYMPHOCYTES # (AUTO) 0.9 /CMM (0.8-4.8); LYMPHOCYTES % (AUTO) 11.7 % (20.0-44.0); MEAN CORPUSCULAR HGB CONC 34 g/dl (31.0-36.0); MEAN CORPUSCULAR VOLUME 94 fL (80-96); MONOCYTES # (AUTO) 0.6 /CMM (0.1-1.30); MONOCYTES % (AUTO) 8.3 % (2.0-12.0); NEUTROPHILS # (AUTO) 5.9 /CMM (1.8-8.9); NEUTROPHILS % (AUTO) 76.2 % (43.0-81.0); PLATELET COUNT (AUTO) 298 /CMM (150-450); RED BLOOD CELL COUNT(AUTO) 2.96 MIL/uL (4.5-6.0); WHITE BLOOD COUNT (AUTO) 7.7 K/uL (4.3-11.0)
[2021-01-23 05:23] LABS: CALCIUM, SERUM 8.4 mg/dL (8.5-10.1); CREATININE 0.7 mg/dL (0.6-1.3); MAGNESIUM 1.7 mg/dL (1.8-2.4); PHOSPHORUS 2.9 mg/dL (2.5-4.9); POTASSIUM 4.2 mmol/L (3.5-5.1)
[2021-01-23] MEDS: IV 1/2NS 1000 ML 1,000 ML IV PRN (05:30)
--- NOTE | 2021-01-23 06:30 | NUR ---
STAMPING DIE TRY OUT WORKER: NO SIGNIFICANT CHANGE OF CONDITION DURING THE SHIFT. STILL NOTED WITH A LOT OF SECRETIONS. FREQUENT SUCTIONING DONE. TOLERATING GTF AT 45ML/HR WT NO RESIDUAL. HAD ONE SMALL BOWEL MOVEMENT. WILL ENDORSE TO DAY SHIFT TO GIVE MOM OR FLEET ENEMA. GOOD SKIN CARE RENDERED. SAFETY PRECAUTION NOTED AT ALL TIMES.
--- NOTE | 2021-01-23 07:30 | NUR ---
ICU/RN PT IS INTUBATED ON THE VENT ACMODE,FIO2-40%,SAT O2-100%.V/S STABLE.T-101. 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
[2021-01-23] MEDS: FOLIC ACID 1 MG TABLET GT SCH (08:12)
[2021-01-23] MEDS: DOCUSATE SODIUM LIQ 100 MG/10 ML UDC GT SCH ×2 (08:12→16:11)
[2021-01-23] MEDS: FERROUS SULFATE UDC 300 MG/5 ML UDC GT SCH ×2 (08:12→16:11)
[2021-01-23] MEDS: ESCITALOPRAM OXALATE (10 MG) 10 MG TABLET GT SCH (08:12)
[2021-01-23] MEDS: LISINOPRIL (5MG) 5 MG TABLET GT SCH (08:13)
[2021-01-23] MEDS: AMLODIPINE BESYLATE 10 MG TABLET GT SCH (08:14)
[2021-01-23] MEDS: BACLOFEN (10 MG) 10 MG TABLET GT SCH (08:14)
[2021-01-23] MEDS: PYRIDOXINE HCL 50 MG TABLET GT SCH (08:14)
[2021-01-23] MEDS: PANTOPRAZOLE 40 MG/PACK PACK GT SCH (08:14)
[2021-01-23] MEDS: ASPIRIN 81 MG TAB.CHEW GT SCH (08:14)
[2021-01-23] MEDS: BICALUTAMIDE 50 MG TABLET GT SCH (08:14)
[2021-01-23] MEDS: POTASSIUM CHLORIDE 20 MEQ POWDER PACKET GT SCH (08:15)
[2021-01-23] MEDS: Z GUARD REMEDY 2 OZ OINT TP SCH ×2 (08:15→21:22)
[2021-01-23] MEDS: BISACODYL SUPP (10 MG) 10 MG/SUPP.RECT SUPP.RECT RC SCH (08:15)
[2021-01-23] MEDS: TIMOLOL 0.5% SOLN OPHTH 5 ML BOTTLE EACHEYE SCH ×2 (08:16→16:12)
[2021-01-23] MEDS: BRIMONIDINE TARTRATE OPHT SOLN 5 ML BOTTLE OP SCH ×2 (08:16→16:12)
[2021-01-23] MEDS: LORATADINE 10 MG TABLET GT SCH (08:17)
[2021-01-23] MEDS: ACETAMINOPHEN 650 MG/20.3 ML UDC GT PRN ×2 (08:30→16:36)
--- NOTE | 2021-01-23 09:00 | NUR ---
ICU/RN T-101.TYLENOL VIA G-TUBE GIVEN ORDERED.DUE MEDS ARE GIVEN ORDERED. AM CARE PROVIDED.REPOSITION FOR COMFORT.
[2021-01-23] MEDS: Magnesium 1GM/D5W 100ML PREMIX 100 ML IV SCH ×2 (09:24→10:24)
[2021-01-23] MEDS: ONDANSETRON HCL/PF 4 MG/2 ML VIAL IVP PRN (11:53)
[2021-01-23] MEDS: JEVITY 1.2 CAL 1,000 ML BOTTLE GT PRN (11:53)
--- NOTE | 2021-01-23 11:55 | NUR ---
ICU/RN PT VOMIT.ZOFRAN IV GIVEN ORDERED.G-TUBE FEEDING PLACED ON HOLD.
--- NOTE | 2021-01-23 18:00 | NUR ---
ICU/RN PM CARE PROVIDED.DUE MEDS ARE GIVEN ORDERED.SUCTION PROVIDED,PT T-100.6.TYLENOL VIA G-TUBE GIVEN ORDERED.FEEDING RATE DECREASED TO 40ML/HR.PT WAS VOMIT ERLIER.NO RESIDUAL NOTED. V/S STABLE ,AFEBRILE.SUCTION PROVIDED.REPOSITION FOR COMFORT.COMNTINUE MONITORING.
--- NOTE | 2021-01-23 18:20 | NUR ---
RT end of the shift report, Pt. 85 Y old Male rec. orally intubated beginning of the shift. ( ETT # 7.5 @ 26 cm lip line ) on Vent with noted ( AC, RR 14, VT 500, FIO2 40%, PEEP +5 ) settings, alarms are set and functional. equal chest rise noted, vent plugged into red outlet, Ambu bag remain at the bedside. B/s bilaterally rales, sux'd for small amt. of white secretions, Dr. Sullivan at the beds, no changes. HME changed, CLIENT EXPERIENCE ADMINISTRATOR done, pt. remain stable and continue to monitor. reporet will pass to PM shift. Addendum: 01/23/21 at 1822 by BLAYNE TA RT Amended: Links added.
--- NOTE | 2021-01-23 19:30 | NUR ---
RT Pt received orally intubated on mechanical ventilation with noted settings. Vent is plugged into red outlet with BVM by bedside. Alarms are set and audible. Equal bilateral breath sounds and chest rise noted. No SOB or respiratory distress noted at this time. Addendum: 01/23/21 at 1953 by CAITLIN ORONA RT Amended: Links added.
--- NOTE | 2021-01-23 19:30 | NUR ---
RT Pt received orally intubated on mechanical ventilation with noted settings. Vent is plugged into red outlet with BVM by bedside. Alarms are set and audible. No SOB or respiratory distress noted at this time.
--- NOTE | 2021-01-23 20:14 | NUR ---
WINDOW REPAIRER. INITIAL ASSESSMENT. RECEIVED THE PT REST ON THE BEAD. ORALLY INTUBATED.PT IS AWAKE, OPEN EYES. DOES NOT FOLLOW COMMANDS. ALBERT LOWER AND UPPER EXTREMITY CONTRACTED. ETT 7.5,LIP 26,AC 14, TV 500,FIO2 40%,PEEP 5, SAT 98%. NO ACUTE DISTRESS NOTED. CHAIN CARRIER SHOWING NSR. IV RT UPPER ARM PICC LINE. IVF 1/2NS 75ML/H. HOB ELEVATED. GT INTACT. JEVITY 40ML/H. FC PATENT. URINE DRAINING. AFEBRILE. WILL CONTINUE TO MONITOR VITALS.
[2021-01-23] MEDS: ATORVASTATIN 40 MG TABLET GT SCH (21:20)
[2021-01-23] MEDS: ENOXAPARIN SODIUM 40 MG/0.4 ML DISP.SYRIN SQ SCH (21:22)
[2021-01-23] MEDS: LATANOPROST EYE DROP 0.005% 2.5 ML BOTTLE EACHEYE SCH (21:24)
--- NOTE | 2021-01-23 23:43 | NUR ---
COMPONENT DESIGN ENGINEER. PT HAS LOT OF SECRETION. WILL CONTINUE TO MONITOR
--- NOTE | 2021-01-23 23:51 | NUR ---
CARE TEAM COORDINATOR SCHEDULER. TEMPERATURE 100. TYLENOL GIVEN PER ORDERED
[2021-01-24] VITALS (57 sets, daily range): BP systolic 68–145; BP diastolic 25–89
--- NOTE | 2021-01-24 01:05 | NUR ---
horticulture worker.temperature 100. tylenol given per ordered
[2021-01-24] MEDS: MEROPENEM 1 G in IV NS 0.9% 100 ML IV SCH ×3 (01:07→17:38)
--- NOTE | 2021-01-24 04:03 | NUR ---
SURGICAL ASSIST.AM CARE GIVEN. REMAINING SAME VENT SETTING TOLERATED WELL. SAT 985. NO ACUTE DISTRESS NOTED. INSPECTOR GRAIN MILL PRODUCTS SHOWING S TACH. GT FEEDING TOLERATED WELL. HOB ELEVATED, FC PATENT, URINE DRAINING. TURN AND REPOSITION Q2H. WILL CONTINUE TO MONITOR VITALS
[2021-01-24] MEDS: ONDANSETRON HCL/PF 4 MG/2 ML VIAL IVP PRN ×2 (04:38→16:48)
[2021-01-24 04:52] LABS: BASOPHILS % (AUTO) 0.3 % (0.0-2.0); EOSINOPHILS % (AUTO) 2.5 % (0.0-6.0); HEMATOCRIT 28 % (39-51); HEMOGLOBIN 9.5 g/dL (13.5-17.5); LYMPHOCYTES # (AUTO) 0.7 /CMM (0.8-4.8); LYMPHOCYTES % (AUTO) 7.7 % (20.0-44.0); MEAN CORPUSCULAR HGB CONC 34 g/dl (31.0-36.0); MEAN CORPUSCULAR VOLUME 94 fL (80-96); MONOCYTES # (AUTO) 0.7 /CMM (0.1-1.30); MONOCYTES % (AUTO) 7.2 % (2.0-12.0); NEUTROPHILS # (AUTO) 7.7 /CMM (1.8-8.9); NEUTROPHILS % (AUTO) 82.3 % (43.0-81.0); PLATELET COUNT (AUTO) 340 /CMM (150-450); RED BLOOD CELL COUNT(AUTO) 2.95 MIL/uL (4.5-6.0); WHITE BLOOD COUNT (AUTO) 9.3 K/uL (4.3-11.0)
[2021-01-24 05:08] LABS: CALCIUM, SERUM 8.8 mg/dL (8.5-10.1); CREATININE 0.8 mg/dL (0.6-1.3); MAGNESIUM 2.5 mg/dL (1.8-2.4); PHOSPHORUS 3.6 mg/dL (2.5-4.9); POTASSIUM 4.2 mmol/L (3.5-5.1)
--- NOTE | 2021-01-24 06:00 | NUR ---
HOME HEALTH RN. 2 EPISODE OF VOMITING ZOFRAN IV GIVEN PER MD ORDERED
--- NOTE | 2021-01-24 08:00 | NUR ---
RN NOTES RECEIVED PATIENT TOTAL CARE ETT/VENT DEPENDENT, PATIENT HAS ORDER VIA INFORMATION STRATEGIST DECREASE VENT SETTING PRIOR TO EXTUBATION. FIO2-35, PEEP 5. PATIENT WILL BE CPAP MODE. STOP FEEDING. PATIENT CONTRACTED UPPER, AND LOWER EXTREMITIES, DROOLING FROM MOUTH, SUCTION, MOUTH CARE DONE, PATIENT AWAKE EYES OPEN, ASSIST TURN AND REPOSTION Q 2 HR. KEEP HOB ELEVATED FOR ASPIRATION PRECAUTION, GONCALVES DRAINING LIGHT YELLOW OUTPUT. SIDE RAILS UP. WILL MONITORING.
--- NOTE | 2021-01-24 08:30 | NUR ---
RN NOTES PER CHEST XRAY FINDING PATIENT Retrocardiac opacity and left pleural effusion. Pulmonary vascular prominence.
--- NOTE | 2021-01-24 09:05 | NUR ---
rn notes patient getting ABG at this time.
--- NOTE | 2021-01-24 09:27 | NUR ---
RN NOTES GET RESULT ABG PH- 7.49, PCO2-31, PO2-65, HCO3-23.3, WAITING BAG CHECKER. WILL MONITORING.
--- NOTE | 2021-01-24 09:30 | NUR ---
RN NOTES PATIENT VOMITING FEEDING CONTENT, ASPIRATION PRECAUTION. NOTIFIED DR GREENE AND GET TO ORDER BACK TO GTF 30 CC AGAIN. SUCTION, ORAL CARE DONE, AND DAILY HYGIENE. ASSIST TURN AND REFLATION Q 2 HR. PATIENT CONFUSED, EYES IS OPEN, HR -100, BP 115/84,KEEP HOB ELEVATED FOR ASPIRATION PRECAUTION. WILL MONITORING.
[2021-01-24 09:42] LABS: ABG BASE EXCESS 0.5 mmol/L; ABG OXYGEN SATURATION 93.2 % (92.0-98.5); ABG PCO2 31.1 mmHg (35.0-45.0); ABG PH 7.493 (7.350-7.450); AaDO2 148.4 mmHg; COHb 0.3 % (0.5-1.5); MetHb 0.1 % (0.0-1.5); O2Hb 92.8 % (94.0-97.0); PEEP,BG 5 cm H2O; SITE, ABG Left Radial; VT, ABG 450 mL
[2021-01-24] MEDS: ASPIRIN 81 MG TAB.CHEW GT SCH (10:01)
[2021-01-24] MEDS: FOLIC ACID 1 MG TABLET GT SCH (10:01)
[2021-01-24] MEDS: FERROUS SULFATE UDC 300 MG/5 ML UDC GT SCH ×2 (10:01→16:44)
[2021-01-24] MEDS: PANTOPRAZOLE 40 MG/PACK PACK GT SCH (10:01)
[2021-01-24] MEDS: POTASSIUM CHLORIDE 20 MEQ POWDER PACKET GT SCH (10:01)
[2021-01-24] MEDS: DOCUSATE SODIUM LIQ 100 MG/10 ML UDC GT SCH ×2 (10:01→16:44)
[2021-01-24] MEDS: ESCITALOPRAM OXALATE (10 MG) 10 MG TABLET GT SCH (10:02)
[2021-01-24] MEDS: BACLOFEN (10 MG) 10 MG TABLET GT SCH (10:02)
[2021-01-24] MEDS: LORATADINE 10 MG TABLET GT SCH (10:02)
[2021-01-24] MEDS: LISINOPRIL (5MG) 5 MG TABLET GT SCH (10:02)
[2021-01-24] MEDS: AMLODIPINE BESYLATE 10 MG TABLET GT SCH (10:03)
[2021-01-24] MEDS: BISACODYL SUPP (10 MG) 10 MG/SUPP.RECT SUPP.RECT RC SCH (10:05)
[2021-01-24] MEDS: PYRIDOXINE HCL 50 MG TABLET GT SCH (10:05)
[2021-01-24] MEDS: Z GUARD REMEDY 2 OZ OINT TP SCH ×2 (10:06→21:12)
[2021-01-24] MEDS: BICALUTAMIDE 50 MG TABLET GT SCH (10:08)
[2021-01-24] MEDS: TIMOLOL 0.5% SOLN OPHTH 5 ML BOTTLE EACHEYE SCH ×2 (10:09→16:43)
[2021-01-24] MEDS: BRIMONIDINE TARTRATE OPHT SOLN 5 ML BOTTLE OP SCH ×2 (10:09→16:43)
--- NOTE | 2021-01-24 12:00 | NUR ---
RN NOTES ACCORDING Dr GREENE, Continue to wean as tolerates but would hold off on extubation and consider tracheostomy if mental status does not improve over the next 24 hours.. Continue pulmonary toilet, antibiotics and nutritional support. WILL MONITORING.
[2021-01-24] MEDS: IV 1/2NS 1000 ML 1,000 ML IV PRN (16:32)
[2021-01-24] MEDS: JEVITY 1.2 CAL 1,000 ML BOTTLE GT PRN (16:32)
--- NOTE | 2021-01-24 16:48 | NUR ---
RN NOTES ADMINISTERED ZOFRAN 4MG/ML IV PUSH FOR VOMITING. PATIENT HAS LARGE MOUTH SECRETION, SUCTION, AND MOUTH CARE GIVEN, RUNNING JEVITY 30 ML/HR. ON WEANING ASSESSMENT, NO ACUTE RESPIRATORY DISTRESS, NO SEDATION, EYES OPEN, CONFUSED, NONVERBAL. VSS. WILL MONITORING.
--- NOTE | 2021-01-24 18:11 | NUR ---
RT END OF THE SHIFT REPORT, PT. 85 Y OLD MALE REC. INTUBATED ETT # 7.5 @ 26 LIP LINE ON VENT WITH NOTED SETTINGS, ALARMS ARE SET AND FUNCTIONAL, EQUAL CHEST RISE NOTED, B/S BILATERALLY RALES ETT SECURE & VENT PLUGGED INTO RED OUTLET, AMBU BAG REMAIN AT THE BEDSIDE. @0801 PT. PLACED ON SIMV WEANING MODE WITH NOTED SETTINGS POST ABG DONE AND NO CHANGES PER DR. GREENE AT THE BEDSIDE. RN AWARE WILL MONITOR ON CURRENT SETTINGS. SECRETIONS COLOR TANNISH YELLOW T/O SHIFT AND LAVAGED SUCTIONED FOR MINIMAL AMOUNT OF SECRETIONS, HME CHANGED, SOLAR DESIGNER DONE, CONTINUE TO MONITOR AND PT. REMAIN STABLE. REPORT WILL PASS TO PM SHIFT. Addendum: 01/24/21 at 1816 by BLAYNE TA RT Amended: Links added.
--- NOTE | 2021-01-24 18:45 | NUR ---
RN NOTES EQUAL CHEST RISE NOTED, B/S BILATERALLY RALES RN NOTES PM CARE DONE,SUCTION, MOUTH CARE, AND DAILY PM CARE. ETT WITH VENT, SIMV WEANING MODE WITH NO CHANGES, NO RESPIRATORY DISTRESS, PATIENT AWAKE, CONFUSED, WHEN CALLED NAME FOLLOW, BUT UNABLE TO VERBALIZE. RUNNING JEVITY 30CC/HR INTACT, AND INFUSING 1/2 NS AT 75 ML ON RIGHT UA PICC LINE. CALL LIGHT WITHIN TO REACH. GONCALVES DRAINING VIA GRAVITY. ASSIST TURN AND REPOSTION Q 2 HR. ENDORSED ONCOMING NURSE FOLLOW PLAN OF CARE. HOB ELEVATED FOR ASPIRATION PRECAUTION.
--- NOTE | 2021-01-24 19:42 | NUR ---
RT Pt received orally intubated w/ 7.5 ETT secured 26cm @lip line on mechanical ventilation with MD ordered SIMV settings. Vent is plugged into red outlet with Ambubag at bedside. Alarms are set and audible. No SOB or respiratory distress noted at this time. Will continue to monitor closely. Addendum: 01/24/21 at 2312 by CARLEE LOTT RT Amended: Links added.
[2021-01-24] MEDS: ENOXAPARIN SODIUM 40 MG/0.4 ML DISP.SYRIN SQ SCH (21:11)
[2021-01-24] MEDS: ATORVASTATIN 40 MG TABLET GT SCH (21:13)
[2021-01-24] MEDS: LATANOPROST EYE DROP 0.005% 2.5 ML BOTTLE EACHEYE SCH (21:13)
[2021-01-25] VITALS (26 sets, daily range): BP systolic 91–137; BP diastolic 29–89
[2021-01-25] MEDS: MEROPENEM 1 G in IV NS 0.9% 100 ML IV SCH ×3 (01:31→17:04)
[2021-01-25 04:20] LABS: BASOPHILS % (AUTO) 0.3 % (0.0-2.0); EOSINOPHILS % (AUTO) 2.8 % (0.0-6.0); HEMATOCRIT 26 % (39-51); HEMOGLOBIN 8.6 g/dL (13.5-17.5); LYMPHOCYTES # (AUTO) 0.8 /CMM (0.8-4.8); LYMPHOCYTES % (AUTO) 9.7 % (20.0-44.0); MEAN CORPUSCULAR HGB CONC 34 g/dl (31.0-36.0); MEAN CORPUSCULAR VOLUME 94 fL (80-96); MONOCYTES # (AUTO) 0.6 /CMM (0.1-1.30); MONOCYTES % (AUTO) 7.6 % (2.0-12.0); NEUTROPHILS # (AUTO) 6.5 /CMM (1.8-8.9); NEUTROPHILS % (AUTO) 79.6 % (43.0-81.0); PLATELET COUNT (AUTO) 325 /CMM (150-450); RED BLOOD CELL COUNT(AUTO) 2.73 MIL/uL (4.5-6.0); WHITE BLOOD COUNT (AUTO) 8.1 K/uL (4.3-11.0)
[2021-01-25 04:36] LABS: CALCIUM, SERUM 8.6 mg/dL (8.5-10.1); CREATININE 0.8 mg/dL (0.6-1.3); MAGNESIUM 2.4 mg/dL (1.8-2.4); PHOSPHORUS 3.2 mg/dL (2.5-4.9); POTASSIUM 4.2 mmol/L (3.5-5.1)
--- NOTE | 2021-01-25 04:47 | NUR ---
RICKSHAW DRIVER PT REMAINS ON VENT-SIMV-4, TV 500, PS-15, FIO2-35%, PEEP+5. LARGE AMT. OF THICK YELLOW SECRETION. VSS, AFEBRILE, SCOPE-SR. GT FEEDING JEVITY 1.2 @ 30 MLS/HR. TOLERATES WELL. NO N/V. F/C DRAINS SUFFICIENT AMT. OF CLEAR URINE. MEDICATED ORDERED.
--- NOTE | 2021-01-25 07:35 | NUR ---
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 LABS REVIEW. NOTIFIED.
--- NOTE | 2021-01-25 09:00 | NUR ---
ICU/RN DUE MEDS ARE GIVEN ORDERED.G-TUBE RESTARTED.REGLAN 10 MG IV GIVEN .CONTINUE MONITORING.
[2021-01-25] MEDS: ASPIRIN 81 MG TAB.CHEW GT SCH (09:54)
[2021-01-25] MEDS: DOCUSATE SODIUM LIQ 100 MG/10 ML UDC GT SCH ×2 (09:54→17:04)
[2021-01-25] MEDS: PANTOPRAZOLE 40 MG/PACK PACK GT SCH (09:54)
[2021-01-25] MEDS: FOLIC ACID 1 MG TABLET GT SCH (09:54)
[2021-01-25] MEDS: PYRIDOXINE HCL 50 MG TABLET GT SCH (09:54)
[2021-01-25] MEDS: BACLOFEN (10 MG) 10 MG TABLET GT SCH (09:54)
[2021-01-25] MEDS: FERROUS SULFATE UDC 300 MG/5 ML UDC GT SCH ×2 (09:54→17:04)
[2021-01-25] MEDS: LORATADINE 10 MG TABLET GT SCH (09:54)
[2021-01-25] MEDS: BISACODYL SUPP (10 MG) 10 MG/SUPP.RECT SUPP.RECT RC SCH (09:54)
[2021-01-25] MEDS: BICALUTAMIDE 50 MG TABLET GT SCH (09:54)
[2021-01-25] MEDS: POTASSIUM CHLORIDE 20 MEQ POWDER PACKET GT SCH (09:54)
[2021-01-25] MEDS: AMLODIPINE BESYLATE 10 MG TABLET GT SCH (09:55)
[2021-01-25] MEDS: LISINOPRIL (5MG) 5 MG TABLET GT SCH (09:55)
[2021-01-25] MEDS: Z GUARD REMEDY 2 OZ OINT TP SCH ×2 (09:58→22:05)
[2021-01-25] MEDS: TIMOLOL 0.5% SOLN OPHTH 5 ML BOTTLE EACHEYE SCH ×2 (09:59→17:04)
[2021-01-25] MEDS: BRIMONIDINE TARTRATE OPHT SOLN 5 ML BOTTLE OP SCH ×2 (09:59→17:05)
[2021-01-25] MEDS: METOCLOPRAMIDE HCL 10 MG/2 ML VIAL IV SCH ×2 (10:01→17:06)
[2021-01-25] MEDS: ACETAMINOPHEN 650 MG/20.3 ML UDC GT PRN (15:13)
[2021-01-25] MEDS: JEVITY 1.2 CAL 1,000 ML BOTTLE GT PRN (15:13)
--- NOTE | 2021-01-25 18:00 | NUR ---
ICU/RN PM CARE PROVIDED. DUE MEDS ARE GIVEN ORDERED.SUCTION PROVIDED. REPOSITION FOR COMFORT.V/S STABLE,AFEBRILE.
--- NOTE | 2021-01-25 19:35 | NUR ---
RN NOTES RECEIVED PATIENT EYES IS OPEN WITH ETT WITH VENT SETTING ON SIMV MODE WITH FIO2 35% AND PEEP 5 . PATIENT IS NON VERBAL. NOT FOLLOWING COMAMND. SR ON MONITOR. IV SITE ON MK PICC LINE INTACT AND PATENT. PATIENT ON JEVITY 1.2 @ 30 ML/HR, PATENCY CHECKED WITH MINIMAL AMOUNT OF RESIDUAL. GTF CONTINUED. TURN AND REPOSITION PATIENT PATIENT'S COMFORTABLE. KEPT PT CLEAN AND DRY.WILL TURN ADN REPOSITION Q2H AND PRN
--- NOTE | 2021-01-25 19:54 | NUR ---
RECEIVED PT INTUBATED 7.5 ETT SECURED AT 26CM. PT IS ON SIMV MODE TOLERATING SETTINGS. SX'D MOD AMT OF THICK COLES SECRETIONS. VENT ALARMS SET AND AUDIBLE. AMBU BAG AT BEDSIDE. CONTINUE MECHANICAL VENT SUPPORT. Addendum: 01/25/21 at 1957 by SHAYNE GRANT RT Amended: Links added.
[2021-01-25] MEDS: ATORVASTATIN 40 MG TABLET GT SCH (22:04)
[2021-01-25] MEDS: ENOXAPARIN SODIUM 40 MG/0.4 ML DISP.SYRIN SQ SCH (22:05)
[2021-01-25] MEDS: LATANOPROST EYE DROP 0.005% 2.5 ML BOTTLE EACHEYE SCH (22:06)
[2021-01-26] VITALS (34 sets, daily range): BP systolic 89–154; BP diastolic 44–100
--- NOTE | 2021-01-26 | NUR ---
RN NOTES NO CHANGES .ETT AND VENT TOLERATED WELL. AFEBRILE. VSS. TURN ON REPOSITION FOR SKIN CARE.
[2021-01-26] MEDS: MEROPENEM 1 G in IV NS 0.9% 100 ML IV SCH ×3 (01:55→17:17)
[2021-01-26] MEDS: METOCLOPRAMIDE HCL 10 MG/2 ML VIAL IV SCH ×3 (01:57→17:16)
--- NOTE | 2021-01-26 04:00 | NUR ---
RN NOTES BEDBATH DONE , MEPILEX KEPT IN PLACED FOR PROTECTION REDUCED PRESSURE TO BONY PROMINENCE AREA. PATIENT IS VERY CONTRACTED, PILLOWS PLACED TO PREVENT RUBBING SKIN TO SKIN DUE TO CONTRACTION. KEPT PT CLEAN AND DRY.
[2021-01-26 04:14] LABS: BASOPHILS # (AUTO) 0.1 /CMM (0.0-0.2); BASOPHILS % (AUTO) 0.7 % (0.0-2.0); EOSINOPHILS % (AUTO) 4.1 % (0.0-6.0); HEMATOCRIT 26 % (39-51); HEMOGLOBIN 8.8 g/dL (13.5-17.5); LYMPHOCYTES # (AUTO) 0.8 /CMM (0.8-4.8); LYMPHOCYTES % (AUTO) 10.8 % (20.0-44.0); MEAN CORPUSCULAR HGB CONC 34 g/dl (31.0-36.0); MEAN CORPUSCULAR VOLUME 95 fL (80-96); MONOCYTES # (AUTO) 0.5 /CMM (0.1-1.30); MONOCYTES % (AUTO) 7.1 % (2.0-12.0); NEUTROPHILS # (AUTO) 5.8 /CMM (1.8-8.9); NEUTROPHILS % (AUTO) 77.3 % (43.0-81.0); PLATELET COUNT (AUTO) 355 /CMM (150-450); RED BLOOD CELL COUNT(AUTO) 2.77 MIL/uL (4.5-6.0); WHITE BLOOD COUNT (AUTO) 7.5 K/uL (4.3-11.0)
[2021-01-26 04:35] LABS: CREATININE 0.7 mg/dL (0.6-1.3); MAGNESIUM 2.4 mg/dL (1.8-2.4); POTASSIUM 4.3 mmol/L (3.5-5.1)
[2021-01-26 04:41] LABS: CALCIUM, SERUM 8.8 mg/dL (8.5-10.1)
--- NOTE | 2021-01-26 06:52 | NUR ---
RN NOTES NO SIGNIFICANT CHANGES TROUGHOUT THE SHIFT. CONTINUE TOLERATING ETT AND VENT SETTING. SATURATION >92%. AFEBRILE. VSS. NO ACUTE RESPIRATORY DISTRESS, WITH EPISODE OF BITTING TUBE. GTF TOLERATED ASPIRATED SOME AIR ON HER GT. AWAITING FOR TRACHEOSTOMY TO PLACED. KEPT PT CLEAN AND DRY. WILL ENDORSED CONTINUITY OF CARE TO AM NURSE FOR POC.
--- NOTE | 2021-01-26 07:35 | NUR ---
ICU/RN PT IS INTUBATED ON SIMV-4 MODE,FIO2-35%.SAT O2-96%.AWAKE.NOT SEDATED.V/S STABLE.AFEBRILE.NO PAIN REPORTED AT THIS TIME.RIGHT UPPER ARM PICC LINE.PT IS CONTRACTED.F/C DRAINING WITH YELLOW URINE.LABS REVIEW.PT HAS G-TUBE FEEDING ,RESIDUAL 20 ML NOTED.SUCTION PROVIDED.PT HAS A LOT OF SECRETIONS..
--- NOTE | 2021-01-26 08:27 | NUR ---
RT PATIENT REC'D ORALLY [facility]UBATED [facility] V[facility] CURRENT[facility] TOLERATING SIMV WEANING MODE. ETT CHECKED AND PATENT. MOD AMT OF SECRETIONS. PATIENT NON VERBAL, NON RESPONSIVE TO VERBAL COMMANDS. VENT ALARMS CHECKED + AUDIBLE. JEREMIE BAG AT HOB. Addendum: 01/26/21 at 0831 by SIVAN RICK RT Amended: Links added.
[2021-01-26] MEDS: BISACODYL SUPP (10 MG) 10 MG/SUPP.RECT SUPP.RECT RC SCH (08:39)
[2021-01-26] MEDS: DOCUSATE SODIUM LIQ 100 MG/10 ML UDC GT SCH ×2 (08:39→17:13)
[2021-01-26] MEDS: AMLODIPINE BESYLATE 10 MG TABLET GT SCH (08:39)
[2021-01-26] MEDS: PANTOPRAZOLE 40 MG/PACK PACK GT SCH (08:39)
[2021-01-26] MEDS: FERROUS SULFATE UDC 300 MG/5 ML UDC GT SCH ×2 (08:39→17:13)
[2021-01-26] MEDS: ASPIRIN 81 MG TAB.CHEW GT SCH (08:40)
[2021-01-26] MEDS: BACLOFEN (10 MG) 10 MG TABLET GT SCH (08:40)
[2021-01-26] MEDS: POTASSIUM CHLORIDE 20 MEQ POWDER PACKET GT SCH (08:40)
[2021-01-26] MEDS: LORATADINE 10 MG TABLET GT SCH (08:40)
[2021-01-26] MEDS: FOLIC ACID 1 MG TABLET GT SCH (08:41)
[2021-01-26] MEDS: LISINOPRIL (5MG) 5 MG TABLET GT SCH (08:41)
[2021-01-26] MEDS: BICALUTAMIDE 50 MG TABLET GT SCH (08:42)
[2021-01-26] MEDS: PYRIDOXINE HCL 50 MG TABLET GT SCH (08:42)
[2021-01-26] MEDS: TIMOLOL 0.5% SOLN OPHTH 5 ML BOTTLE EACHEYE SCH ×2 (08:43→17:14)
[2021-01-26] MEDS: BRIMONIDINE TARTRATE OPHT SOLN 5 ML BOTTLE OP SCH ×2 (08:43→17:14)
[2021-01-26] MEDS: Z GUARD REMEDY 2 OZ OINT TP SCH ×2 (08:43→21:35)
--- NOTE | 2021-01-26 09:00 | NUR ---
ICU/RN DUE MEDS ARE GIVEN ORDERED.
[2021-01-26] MEDS ORDERED: PROPOFOL 100 ML IV PRN ×2 (13:00→14:00)
[2021-01-26] MEDS ORDERED: LIDOCAINE HCL/PF 1% 30 ML SDV IJ ONE (14:30)
--- NOTE | 2021-01-26 14:30 | NUR ---
ICU/RN PROPOFOL STARTED FOR SEDATION , VENT SETTING CHANGED TO AC MODE. PT WILL HAVE TRACHEOSTOMY AT BEDSIDE.
--- NOTE | 2021-01-26 15:30 | NUR ---
RT PATIENT TRACHED AT BEDSIDE WITH A SHILEY 8. AMBU BAG AT [facility]. PLACED BACK ON LANETTE GOMEZ. Addendum: 01/26/21 at 1745 by SIVAN RICK RT Amended: Links added.
--- NOTE | 2021-01-26 16:10 | NUR ---
ICU/RN TRACHEOSTOMY SHILY 8 INSERTED AT BEDSIDE BY DR MONTESINOS AND DR GUEVARA..PT TOLERATED PROCEDURE WELL,SMALL BLOODY DISCHARGE FROM THE SIDE NOTED.SUCTION PROVIDED.PM CARE PROVIDED.DUE MEDS ARE GIVEN ORDERED.REPOSITION FOR COMFORT.CONTINUE MONITORING.
--- NOTE | 2021-01-26 17:00 | NUR ---
ICU/RN DIPRIVAN STOP ORDERED.PT IS RESTING IN THE BED.AWAKE. T-100.6.TYLENOL VIA G-TUBE GIVEN.
[2021-01-26] MEDS: ACETAMINOPHEN 650 MG/20.3 ML UDC GT PRN (17:13)
[2021-01-26] MEDS ORDERED: ROCURONIUM BROMIDE 50 MG/5 ML IV ONE (18:01)
--- NOTE | 2021-01-26 20:00 | NUR ---
TILE LAYER NOTE PT IN BED NONVERBAL, OPEN EYES UNABLE TO FOLLOW COMMANDS. ON VENT/TRACH TOLERATING THE SETTINGS WELL. ON SUCTIONING GREENISH COLOR FLUIDS NOTED. GT INTACT AND PATENT INFUSING JEVIETY AT 30 ML/HR, 0 ML RESIDUAL NOTED. MK PICC LINE INTACT AND PATENT NS TKO. ON TELE MONITOR SR/ST HR 100. F/C INTACT AND PATENT DRAINING CLEAR YELLOW URINE. REPOSITION HIM FOR COMFORT AND SKIN MANAGEMENT. SIDE RAILS UP X 3, CALL LIGHT WITHIN REACH. VSS. CONTINUE TO MONITOR HIM.
--- NOTE | 2021-01-26 20:10 | NUR ---
RECEIVED PT TRACH SHLY 8 ON [facility] VENT. PT IS AWAKE NO RESP DISTRESS. SX'D MOD AMT OF THIN TINGED SECRETIONS. VENT ALARMS SET AND AUDIBLE. TRACH CUFF CHECKED, TRACH SECURED. CONTINUE TO MONITOR. Addendum: 01/26/21 at 2011 by SHAYNE GRANT RT Amended: Links added.
[2021-01-26] MEDS: ENOXAPARIN SODIUM 40 MG/0.4 ML DISP.SYRIN SQ SCH (21:31)
[2021-01-26] MEDS: ATORVASTATIN 40 MG TABLET GT SCH (21:34)
[2021-01-26] MEDS: LATANOPROST EYE DROP 0.005% 2.5 ML BOTTLE EACHEYE SCH (21:36)
[2021-01-27] VITALS (23 sets, daily range): BP systolic 89–163; BP diastolic 44–108
[2021-01-27] MEDS: METOCLOPRAMIDE HCL 10 MG/2 ML VIAL IV SCH ×3 (02:04→17:43)
[2021-01-27] MEDS: MEROPENEM 1 G in IV NS 0.9% 100 ML IV SCH ×3 (02:04→17:43)
[2021-01-27 04:19] LABS: BASOPHILS # (AUTO) 0.1 /CMM (0.0-0.2); BASOPHILS % (AUTO) 0.6 % (0.0-2.0); EOSINOPHILS % (AUTO) 2.1 % (0.0-6.0); HEMATOCRIT 28 % (39-51); HEMOGLOBIN 9.4 g/dL (13.5-17.5); LYMPHOCYTES # (AUTO) 0.7 /CMM (0.8-4.8); LYMPHOCYTES % (AUTO) 7.6 % (20.0-44.0); MEAN CORPUSCULAR HGB CONC 34 g/dl (31.0-36.0); MEAN CORPUSCULAR VOLUME 95 fL (80-96); MONOCYTES # (AUTO) 0.5 /CMM (0.1-1.30); MONOCYTES % (AUTO) 5.8 % (2.0-12.0); NEUTROPHILS # (AUTO) 7.3 /CMM (1.8-8.9); NEUTROPHILS % (AUTO) 83.9 % (43.0-81.0); PLATELET COUNT (AUTO) 414 /CMM (150-450); RED BLOOD CELL COUNT(AUTO) 2.96 MIL/uL (4.5-6.0); WHITE BLOOD COUNT (AUTO) 8.6 K/uL (4.3-11.0)
[2021-01-27 04:45] LABS: ALBUMIN 1.8 g/dL (3.4-5.0); BILIRUBIN,TOTAL 0.4 mg/dL (0.2-1.0); CALCIUM, SERUM 9.1 mg/dL (8.5-10.1); CREATININE 0.8 mg/dL (0.6-1.3); MAGNESIUM 2.3 mg/dL (1.8-2.4); PHOSPHORUS 2.9 mg/dL (2.5-4.9); TOTAL PROTEIN, SERUM 6.4 g/dL (6.4-8.2)
--- NOTE | 2021-01-27 06:54 | NUR ---
PATENT ENGINEER NOTE PT IN BED WITH EYES CLOSED. NO DISTRESS OR DISCOMFORT NOTED. NO S/S OF PAIN NOTED. ON TELE MONITOR SR/ST WITH PVC'S HR 104. GTF INFUSING WELL, 0 ML RESIDUAL NOTED. F/C INTACT AND PATENT DRAINING YELLOWISH COLOR URINE. REPOSITION HIM Q2H, KEPT HIM DRY AND CLEAN. SIDE RAILS UP X 3 AND CALL LIGHT WITHIN REACH. WILL ENDORSE TO DAY SHIFT NURSE FOR CONTINUE TO CARE.
--- NOTE | 2021-01-27 07:30 | NUR ---
OPENING NOTE: REPORT RECEIVED FROM BRADLEY TELLEZ. PT IS ALERT, TRACHS, APPEARS TO UNDERSTAND WHAT IS SAID TO HIM BUT UNABLE TO COMMUNICATE EXCEPT FOR SMALL NOD AND SHAKE OF HEAD. PT DOES SMILE WHEN ASKED TO SMILE. PT IS TRACH/VENT, NEW TRACH PLACED YESTERDAY. GONCALVES CATHETER DRAINING WITHOUT DIFFICULTY. PT IS CONTRACTED D/T CP. PT CHECKED ON HOURLY AND PRN BY NURSING STAFF.
[2021-01-27] MEDS: FERROUS SULFATE UDC 300 MG/5 ML UDC GT SCH ×2 (08:30→17:43)
[2021-01-27] MEDS: TIMOLOL 0.5% SOLN OPHTH 5 ML BOTTLE EACHEYE SCH ×2 (08:30→17:43)
[2021-01-27] MEDS: BICALUTAMIDE 50 MG TABLET GT SCH (08:30)
[2021-01-27] MEDS: DOCUSATE SODIUM LIQ 100 MG/10 ML UDC GT SCH ×2 (08:30→17:43)
[2021-01-27] MEDS: PYRIDOXINE HCL 50 MG TABLET GT SCH (08:30)
[2021-01-27] MEDS: LISINOPRIL (5MG) 5 MG TABLET GT SCH (08:31)
[2021-01-27] MEDS: BACLOFEN (10 MG) 10 MG TABLET GT SCH (08:31)
[2021-01-27] MEDS: POTASSIUM CHLORIDE 20 MEQ POWDER PACKET GT SCH (08:31)
[2021-01-27] MEDS: AMLODIPINE BESYLATE 10 MG TABLET GT SCH (08:31)
[2021-01-27] MEDS: ASPIRIN 81 MG TAB.CHEW GT SCH (08:31)
[2021-01-27] MEDS: PANTOPRAZOLE 40 MG/PACK PACK GT SCH (08:32)
[2021-01-27] MEDS: BISACODYL SUPP (10 MG) 10 MG/SUPP.RECT SUPP.RECT RC SCH (08:32)
[2021-01-27] MEDS: FOLIC ACID 1 MG TABLET GT SCH (08:32)
[2021-01-27] MEDS: LORATADINE 10 MG TABLET GT SCH (08:32)
[2021-01-27] MEDS: BRIMONIDINE TARTRATE OPHT SOLN 5 ML BOTTLE OP SCH ×2 (08:32→17:44)
[2021-01-27] MEDS: Z GUARD REMEDY 2 OZ OINT TP SCH ×2 (08:33→21:30)
[2021-01-27 10:00] LABS: ABG BASE EXCESS 4.3 mmol/L; ABG OXYGEN SATURATION 94.2 % (92.0-98.5); ABG PCO2 34.7 mmHg (35.0-45.0); ABG PH 7.513 (7.350-7.450); ABG PO2 65.6 mmHg (75.0-100.0); AaDO2 143.6 mmHg; COHb 0.3 % (0.5-1.5); MetHb 0.4 % (0.0-1.5); O2Hb 93.5 % (94.0-97.0); SITE, ABG Right Radial
[2021-01-27] MEDS: ACETAMINOPHEN 650 MG/20.3 ML UDC GT PRN ×2 (12:13→20:44)
--- NOTE | 2021-01-27 18:59 | NUR ---
END OF SHIFT NOTE: PT HAS BEEN ON CPAP SETTING ON THE VENT SINCE 08 THIS AM. PT IS TO BE TRANSFERRED TO ROOM 118-1, REPORT GIVEN TO DOROTHY TELLEZ. AT 1845 PT VOMITED A LARGE AMOUNT OF TUBE FEEDING FROM MOUTH AND NOSE. NO RESIDUALS PRIOR TODAY. TF TURNED OFF. PT CLEANED UP AND PREPARED FOR TRANSFER. TOTAL OF 600 ML URINE OUTPUT THIS SHIFT. PT'S SISTER MYLES NOTIFIED OF ROOM CHANGE NUMBER AND DIRECT PHONE NUMBER TO BLAS GIVEN TO HER. PT CHECKED ON HOURLY AND PRN BY NURSING STAFF.
--- NOTE | 2021-01-27 19:15 | NUR ---
PT TRANSFERRED TO ROOM 118-1 VIA BED WITH 2 RNS AND 1 RT. ALBERT RN MET PATIENT IN ROOM. ALBERT STATED SHE GOT REPORT FROM RAY FOR PATIENT. ALL MEDS AND SUPPLIES SENT WITH PATIENT. PT CHECKED ON HOURLY AND PRN BY NURSING STAFF.
--- NOTE | 2021-01-27 19:25 | NUR ---
RN OPENING NOTE RECD PT IN BED, RESTING. AWAKENS EASILY. NON VERBAL. PT IS TRACH TO VENT, NO DISTRESS OR DISCOMFORT NOTED. NO S/S OF PAIN NOTED. PT IS ON TELE MONITOR PRESENTING WITH ST WITH PVC'S HR 105. PT HAS GTUBE, AUSCULTATED. FLUSHED. 0 ML RESIDUAL NOTED. F/C INTACT AND PATENT DRAINING YELLOWISH COLOR URINE. SAFETY MEASURES IN PLACE. HOB ELEVATED. SIDE RAILS UP X 3 BED LOCKED IN LOWEST POSITION WITH BED ALARM ON AND CALL LIGHT WITHIN REACH. WILL CONTINUE TO MONITOR CLOSELY.
--- NOTE | 2021-01-27 19:30 | NUR ---
RN NOTE PT TOLERATING VENT SETTINGS SHILEY 8 AC 14 TV 500 FIO2 35% PEEP 5. O2 SATURATION 99%
--- NOTE | 2021-01-27 21:00 | NUR ---
RN NOTE PT GTUBE RUNNING FEEDING ORDERED. HOB ELEVATED. WILL CONT TO MONITOR.
[2021-01-27] MEDS: LATANOPROST EYE DROP 0.005% 2.5 ML BOTTLE EACHEYE SCH (21:30)
[2021-01-27] MEDS: ENOXAPARIN SODIUM 40 MG/0.4 ML DISP.SYRIN SQ SCH (21:33)
[2021-01-27] MEDS: ATORVASTATIN 40 MG TABLET GT SCH (21:34)
[2021-01-27] MEDS: JEVITY 1.2 CAL 1,000 ML BOTTLE GT PRN (23:20)
[2021-01-28] VITALS: BP 103/69
[2021-01-28] MEDS: METOCLOPRAMIDE HCL 10 MG/2 ML VIAL IV SCH ×3 (02:39→17:04)
[2021-01-28 04:00] VITALS: BP 123/58
[2021-01-28 05:55] LABS: BASOPHILS # (AUTO) 0.1 /CMM (0.0-0.2); BASOPHILS % (AUTO) 0.6 % (0.0-2.0); EOSINOPHILS % (AUTO) 0.9 % (0.0-6.0); HEMATOCRIT 27 % (39-51); HEMOGLOBIN 8.9 g/dL (13.5-17.5); LYMPHOCYTES # (AUTO) 0.8 /CMM (0.8-4.8); LYMPHOCYTES % (AUTO) 6.4 % (20.0-44.0); MEAN CORPUSCULAR HGB CONC 33 g/dl (31.0-36.0); MEAN CORPUSCULAR VOLUME 95 fL (80-96); MONOCYTES # (AUTO) 0.9 /CMM (0.1-1.30); NEUTROPHILS # (AUTO) 10.4 /CMM (1.8-8.9); NEUTROPHILS % (AUTO) 85.1 % (43.0-81.0); PLATELET COUNT (AUTO) 406 /CMM (150-450); RED BLOOD CELL COUNT(AUTO) 2.85 MIL/uL (4.5-6.0); WHITE BLOOD COUNT (AUTO) 12.2 K/uL (4.3-11.0)
[2021-01-28 06:33] LABS: ALBUMIN 1.8 g/dL (3.4-5.0); BILIRUBIN,TOTAL 0.4 mg/dL (0.2-1.0); CALCIUM, SERUM 8.9 mg/dL (8.5-10.1); CREATININE 0.8 mg/dL (0.6-1.3); MAGNESIUM 2.4 mg/dL (1.8-2.4); PHOSPHORUS 3.2 mg/dL (2.5-4.9); POTASSIUM 4.2 mmol/L (3.5-5.1); TOTAL PROTEIN, SERUM 6.3 g/dL (6.4-8.2)
--- NOTE | 2021-01-28 06:55 | NUR ---
RN CLOSING NOTE NO SIGNIFCANT CHANGES IN PT CONDITION. PT RESTED WELL THROUGHOUT SHIFT. TOLERATING VENT SETTINGS. O2 SATURATION 99%. NO SOB. NO RESP DISTRESS. PT HR IS 97 NSR. GTUBE RUNNING ORDERED. NO S/S OF PAIN, NEEDS ATTENDED. HYGIENE CARE ORAL CARE REPOSITIONING THROUGHOUT SHIFT. SAFETY MEASURES IN PLACE. HOB ELEVATED, BED LOCKD IN LOWEST POSITION. SIDE RAILS UP X2. BED ALARM ON. PT UNABLE TO USE CALL LIGHT. WILL ENDORSE TO DAY SHIFT RN FOR CONTINUATION OF CARE.
[2021-01-28 08:00] VITALS: BP 91/58
--- NOTE | 2021-01-28 08:03 | NUR ---
PATIENT OBSERVED IN BED OBTUNDED, HOB ELEVATED OF ASPIRATION PRECAUTION, GONCALVES CATHETER DRAINING WELL VIA GRAVITY,AFEBRILE, ON TRACHEOSTOMY WITH MECHANICAL VENTILATOR , SHILEY #8 98% O2SAT TOLERATING WELL, EVEN AND UNLABORED RESPIRATION, SR ON TELE MONITOR WITH HR OF 77 WITH OCCASIONAL PVC NO S/S OF CHEST PAIN AT THIS TIME, ON GT FEEDING TOLERATING WELL WITH 0 CC OF RESIDUAL, PATENT UPON ASSESSMENT, SAFETY MEASURES OBSERVED, CALL LIGHT WITHIN REACH, BED WHEELS LOCK,WILL CONTINUE TO MONITOR RESIDENT
[2021-01-28] MEDS: FOLIC ACID 1 MG TABLET GT SCH (08:57)
[2021-01-28] MEDS: DOCUSATE SODIUM LIQ 100 MG/10 ML UDC GT SCH ×2 (08:57→16:08)
[2021-01-28] MEDS: FERROUS SULFATE UDC 300 MG/5 ML UDC GT SCH ×2 (08:57→16:08)
[2021-01-28] MEDS: PANTOPRAZOLE 40 MG/PACK PACK GT SCH (08:59)
[2021-01-28] MEDS: POTASSIUM CHLORIDE 20 MEQ POWDER PACKET GT SCH (08:59)
[2021-01-28] MEDS: LISINOPRIL (5MG) 5 MG TABLET GT SCH (09:00)
[2021-01-28] MEDS: AMLODIPINE BESYLATE 10 MG TABLET GT SCH (09:00)
[2021-01-28] MEDS: BISACODYL SUPP (10 MG) 10 MG/SUPP.RECT SUPP.RECT RC SCH (09:00)
[2021-01-28] MEDS: BACLOFEN (10 MG) 10 MG TABLET GT SCH (09:01)
[2021-01-28] MEDS: ASPIRIN 81 MG TAB.CHEW GT SCH (09:01)
[2021-01-28] MEDS: LORATADINE 10 MG TABLET GT SCH (09:01)
[2021-01-28] MEDS: PYRIDOXINE HCL 50 MG TABLET GT SCH (09:02)
[2021-01-28] MEDS: BICALUTAMIDE 50 MG TABLET GT SCH (09:02)
[2021-01-28] MEDS: Z GUARD REMEDY 2 OZ OINT TP SCH ×2 (09:11→21:14)
[2021-01-28] MEDS: TIMOLOL 0.5% SOLN OPHTH 5 ML BOTTLE EACHEYE SCH ×2 (09:16→16:10)
[2021-01-28] MEDS: BRIMONIDINE TARTRATE OPHT SOLN 5 ML BOTTLE OP SCH ×2 (09:16→16:10)
--- NOTE | 2021-01-28 09:20 | NUR ---
RN NOTE PATIENT TO BE WEANED OF THE VENT PER MD ORDER, TO START ON O2 VIA T-PIECE AT 35% FIO2 TOLERATING WELL AT THIS TIME O2 SAT OF 97-99%, BREATHING EVEN AND UNLABORED WILL CONTINUE TO MONITOR.
--- NOTE | 2021-01-28 10:59 | NUR ---
RN NOTE PATIENT ON O2 VIA T-PIECE AT 35% FIO2 TOLERATING WELL AT THIS TIME O2 SAT OF 96-100%, BREATHING EVEN AND UNLABORED WILL CONTINUE TO MONITOR.
--- NOTE | 2021-01-28 11:08 | NUR ---
RN NOTE PATIENT ON T-PIECE FIO2 AT 35% TOLERATING WELL BREATHINBG EVEN AND UNLABORED, ABG TAKEN BY RT, RESULT FORWARDED TO MD, CONTINUE T-PIECE WITH CURRENT ORDERS, WILL CONTINUE TO MONITOR RESIDENT
[2021-01-28 11:11] LABS: ABG OXYGEN SATURATION 95.4 % (92.0-98.5); ABG PCO2 31.8 mmHg (35.0-45.0); ABG PH 7.475 (7.350-7.450); ABG PO2 74.4 mmHg (75.0-100.0); AaDO2 138.2 mmHg; COHb 0.1 % (0.5-1.5); MetHb 0.3 % (0.0-1.5); SITE, ABG Right Radial; VENT MODE, BG COOL AEROSOL 35%
[2021-01-28 12:12] VITALS: BP 109/63
[2021-01-28] MEDS: ACETAMINOPHEN 650 MG/20.3 ML UDC GT PRN (13:53)
--- NOTE | 2021-01-28 15:44 | NUR ---
RT Pt received trached on mechanical ventilation with noted settings. Pt was placed on cool aerosol per Dr. Sullivan orders, tolerating well. BVM, and spare trach (same size) by bedside. No SOB or respiratory distress noted Addendum: 01/28/21 at 1802 by CAITLIN ORONA RT Amended: Links added.
[2021-01-28 16:00] VITALS: BP 97/50
--- NOTE | 2021-01-28 17:58 | NUR ---
SUPERVISOR FILM PROCESSING NOTE OBSERVED GONCALVES CATHETER LEAKING NOT IN PLACE,, BLADDER SCAN WITH 0 CC AT TIME OF INSERTION, REPLACE GONCALVES CATHETER ORDERED, NEW GONCALVES CATHETER PATENT, DRAINING WELL VIA GRAVITY, WILL CONTINUE TO MONITOR.
--- NOTE | 2021-01-28 18:55 | NUR ---
RN NOTE PATIENT OBSERVED IN BED, AWAKE, ON T-PIECE @35% FIO2 TOLERATING WELL, BREATHING EVEN AND UNLABORED, TOLERATING BEING WEANED OFF OF THE VENT, NO RESPIRATORY DISTRESS NOTED, ON TELE MONITOR SINUS TACHY WITH OCCASIONAL PVC, PICC LINE ON RIGHT ARM PATENT, ON GT FEEDING 40CC/HR GOAL OF 55, TOLERATING WELL AT THIS TIME WITH 10CC OF RESIDUAL, DUE MEDICATION GIVEN ORDERED, SAFETY MEASURES OBSERVED, WHEELS LOCK, CALL LIGHT WITHIN REACH, WILL CONTINUE TO MONITOR CALL LIGHT WITHIN REACH.
[2021-01-28 20:00] VITALS: BP 119/69
--- NOTE | 2021-01-28 20:00 | NUR ---
BLAS RN NOTES PT IN BED AWAKE ON TPIECE AT 8L OF O2 SATING %.PTS ON SR WITH OCCASIONAL PVC ON THE MONITOR . NO SOB NO DISTRESS NOTED . WITH RIGHT ARM PICC LINE INTACT AND PATENT ,TURNED AND REPOSITION SUCTION SECRETION Q 2 HRS AND PRN .DUE MEDS GIVEN ORDERED GT IN PLACE ON JEVITY 1.2 AT 40 CC/HR WITH NO RESIDUAL NOTED , F/C IN PLACE DRAINING WITH YELLOWISH URINE OUTPUT . NEEDS ATTENDED TOO CALL LIGHT WITHIN REACH . SAFETY MEASURES IN PLACE. HOB ELEVATED FOR ASPIRATION PRECAUTION . BED LOCKED IN LOWEST POSITION. SIDE RAILS UP X2. BED ALARM ON. V/S STABLE AFEBRILE , WILL CONTINUE TO MONITOR PTS .
[2021-01-28] MEDS: ENOXAPARIN SODIUM 40 MG/0.4 ML DISP.SYRIN SQ SCH (21:09)
[2021-01-28] MEDS: LATANOPROST EYE DROP 0.005% 2.5 ML BOTTLE EACHEYE SCH (21:15)
[2021-01-28] MEDS: ATORVASTATIN 40 MG TABLET GT SCH (21:16)
[2021-01-29] VITALS: BP 103/60
[2021-01-29] MEDS: METOCLOPRAMIDE HCL 10 MG/2 ML VIAL IV SCH ×3 (02:54→17:06)
[2021-01-29 04:00] VITALS: BP 116/56
[2021-01-29] MEDS: ACETAMINOPHEN 650 MG/20.3 ML UDC GT PRN ×2 (06:07→20:40)
--- NOTE | 2021-01-29 06:34 | NUR ---
vannesa rn notes Pts remains in bed on 8 liters of o2 via t-piece sating 100% no sob no distress noted , tylenol 650 mg via gt given as ordered , remains on jevity at 55cc/hr ( reach GOAL)all needs attended too. will endorse to rn day shift for continuity of care.
--- NOTE | 2021-01-29 07:10 | NUR ---
RN NOTES RECEIVED PT ON, TRACH CARE DONE, T-PIECE AT 35% FIO2, O2 SAT WNL, ON TELE SR HR IN 90'S , NO SOB NOTED, GONCALVES DRAINING TO GRAVITY, TF AT 55CC/HR RUNNING VIA GT , NO RESIDUAL NOTED, R UPPER ARM PICC LINE SITE CLEAN, DRY AND INTACT, NEEDS ATTENDED, CALL LIGHT WITHIN EASY REACH . SAFETY MEASURES IN PLACE. HOB ELEVATED FOR ASPIRATION PRECAUTION . BED LOCKED IN LOWEST POSITION. SIDE RAILS UP X2. BED ALARM ON. WILL CONTINUE TO MONITOR.
[2021-01-29 07:23] LABS: BASOPHILS # (AUTO) 0.1 /CMM (0.0-0.2); BASOPHILS % (AUTO) 1.1 % (0.0-2.0); EOSINOPHILS % (AUTO) 3.1 % (0.0-6.0); HEMATOCRIT 25 % (39-51); HEMOGLOBIN 8.1 g/dL (13.5-17.5); LYMPHOCYTES # (AUTO) 1.2 /CMM (0.8-4.8); LYMPHOCYTES % (AUTO) 10.2 % (20.0-44.0); MEAN CORPUSCULAR HGB CONC 32 g/dl (31.0-36.0); MEAN CORPUSCULAR VOLUME 98 fL (80-96); MONOCYTES % (AUTO) 8.3 % (2.0-12.0); NEUTROPHILS # (AUTO) 8.9 /CMM (1.8-8.9); NEUTROPHILS % (AUTO) 77.3 % (43.0-81.0); PLATELET COUNT (AUTO) 417 /CMM (150-450); RED BLOOD CELL COUNT(AUTO) 2.57 MIL/uL (4.5-6.0); WHITE BLOOD COUNT (AUTO) 11.5 K/uL (4.3-11.0)
[2021-01-29 07:50] LABS: ALBUMIN 1.8 g/dL (3.4-5.0); BILIRUBIN,TOTAL 0.3 mg/dL (0.2-1.0); CALCIUM, SERUM 9.1 mg/dL (8.5-10.1); CREATININE 0.7 mg/dL (0.6-1.3); MAGNESIUM 2.5 mg/dL (1.8-2.4); PHOSPHORUS 2.7 mg/dL (2.5-4.9); POTASSIUM 4.5 mmol/L (3.5-5.1); TOTAL PROTEIN, SERUM 6.3 g/dL (6.4-8.2)
[2021-01-29 08:00] VITALS: BP 93/46
[2021-01-29] MEDS: PANTOPRAZOLE 40 MG/PACK PACK GT SCH (08:30)
[2021-01-29] MEDS: FERROUS SULFATE UDC 300 MG/5 ML UDC GT SCH ×2 (08:31→16:34)
[2021-01-29] MEDS: ASPIRIN 81 MG TAB.CHEW GT SCH (08:31)
[2021-01-29] MEDS: POTASSIUM CHLORIDE 20 MEQ POWDER PACKET GT SCH (08:31)
[2021-01-29] MEDS: DOCUSATE SODIUM LIQ 100 MG/10 ML UDC GT SCH ×2 (08:31→16:34)
[2021-01-29] MEDS: LORATADINE 10 MG TABLET GT SCH (08:31)
[2021-01-29] MEDS: FOLIC ACID 1 MG TABLET GT SCH (08:33)
[2021-01-29] MEDS: LISINOPRIL (5MG) 5 MG TABLET GT SCH (08:33)
[2021-01-29] MEDS: BACLOFEN (10 MG) 10 MG TABLET GT SCH (08:33)
[2021-01-29] MEDS: BISACODYL SUPP (10 MG) 10 MG/SUPP.RECT SUPP.RECT RC SCH (08:33)
[2021-01-29] MEDS: BRIMONIDINE TARTRATE OPHT SOLN 5 ML BOTTLE OP SCH ×2 (08:36→16:34)
[2021-01-29] MEDS: TIMOLOL 0.5% SOLN OPHTH 5 ML BOTTLE EACHEYE SCH ×2 (08:36→16:34)
[2021-01-29] MEDS: BICALUTAMIDE 50 MG TABLET GT SCH (08:37)
[2021-01-29] MEDS: PYRIDOXINE HCL 50 MG TABLET GT SCH (08:37)
[2021-01-29] MEDS: Z GUARD REMEDY 2 OZ OINT TP SCH ×2 (08:38→20:54)
[2021-01-29] MEDS: AMLODIPINE BESYLATE 10 MG TABLET GT SCH (09:00)
[2021-01-29] MEDS: JEVITY 1.2 CAL 1,000 ML BOTTLE GT PRN (10:35)
[2021-01-29 12:00] VITALS: BP 92/60
--- NOTE | 2021-01-29 12:00 | NUR ---
RN NOTES TRACH SUCTIONING DONE , MODERATED AMOUNT OF THICK YELLOWISH SECRETION NOTED , CONTINUE TO MONITOR.
[2021-01-29 16:00] VITALS: BP 141/71
--- NOTE | 2021-01-29 18:00 | NUR ---
RN NOTES PT NEEDS FREQUENT TRACH SUCTIONING, MODERATED AMOUNT OF THICK YELLOWISH SECRETIONS NOTED , O2 SAT WNL, NO SIGNIFICANT CHANGES NOTED ON THIS SHIFT, WILL ENDORSE TO JERKER NURSE FOR CONTINUITY OF CARE .
[2021-01-29 20:00] VITALS: BP 124/92
--- NOTE | 2021-01-29 20:00 | NUR ---
RN NOTE RECEIVED PT IN BED, ON TPIECE AEROSOL AT 8L. NO SIGNS OF DISTRESS O2 SAT AT 100 %. PT WITH HR OF 117 PTS BASELINE. ON MS MONITORING. NOTED WITH FEVER. COOLING MEASURES APPLIED, WILL GIVE TYLENOL. PT ON GT FEEDING. NO RESIDUALS NOTED, KEPT HOB ELEVATED. NO SIGNS OF ASPIRATION NOTED. GONCALVES IN PLACE, DRAINING URINE BY GRAVITY. PT PICC LINE ON MK HALF CATHETER OUT, REMOVED LINE, APPLIED DRESSING, NO BLEEDING NOTED. CHARGE NURSE MADE AWARE. ALL SAFETY MEASURES IN PLACE. WILL CONTINUE TO MONITOR.
[2021-01-29] MEDS: ENOXAPARIN SODIUM 40 MG/0.4 ML DISP.SYRIN SQ SCH (20:44)
[2021-01-29] MEDS: ATORVASTATIN 40 MG TABLET GT SCH (21:35)
[2021-01-29] MEDS: LATANOPROST EYE DROP 0.005% 2.5 ML BOTTLE EACHEYE SCH (21:35)
--- NOTE | 2021-01-30 01:00 | NUR ---
RN NOTE PT BODY TEMP WENT DOWN TO 98.7. NEW IV LINE INSERTED ON LFA 22 G WITH GOOD BLOOD RETURN, FLUSHES WELL. WILL CONTINUE TO MONITOR.
[2021-01-30] MEDS: METOCLOPRAMIDE HCL 10 MG/2 ML VIAL IV SCH ×3 (02:00→18:18)
[2021-01-30 04:00] VITALS: BP 117/71
[2021-01-30] MEDS: JEVITY 1.2 CAL 1,000 ML BOTTLE GT PRN (04:30)
--- NOTE | 2021-01-30 06:52 | NUR ---
RN CLOSING NOTE PT TOLERATING COOL AEROSOL WITH 100 % O2 SAT. SUCTIONED NEEDED. NO SIGNS OF DISTRESS. PT TOLERATES GT FEEDING. NO RESIDUALS NOTED. NO S/SX OF ASPIRATION. KEPT HOB ELEVATED. NEW IV REMAIN PATENT AND INTACT. GONCALVES IN PLACE, DRAINING WELL. ALL SAFETY MEASURES MAINTAINED. WILL ENDORSE TO NEXT SHIFT NURSE FOR SANDY.
[2021-01-30] MEDS: DOCUSATE SODIUM LIQ 100 MG/10 ML UDC GT SCH ×2 (08:50→18:18)
[2021-01-30] MEDS: PANTOPRAZOLE 40 MG/PACK PACK GT SCH (08:50)
[2021-01-30] MEDS: FOLIC ACID 1 MG TABLET GT SCH (08:51)
[2021-01-30] MEDS: FERROUS SULFATE UDC 300 MG/5 ML UDC GT SCH ×2 (08:51→18:18)
[2021-01-30] MEDS: BACLOFEN (10 MG) 10 MG TABLET GT SCH (08:51)
[2021-01-30] MEDS: ASPIRIN 81 MG TAB.CHEW GT SCH (08:52)
[2021-01-30] MEDS: BISACODYL SUPP (10 MG) 10 MG/SUPP.RECT SUPP.RECT RC SCH (08:52)
[2021-01-30] MEDS: LORATADINE 10 MG TABLET GT SCH (08:52)
[2021-01-30] MEDS: AMLODIPINE BESYLATE 10 MG TABLET GT SCH (08:52)
[2021-01-30] MEDS: BICALUTAMIDE 50 MG TABLET GT SCH (08:53)
[2021-01-30] MEDS: POTASSIUM CHLORIDE 20 MEQ POWDER PACKET GT SCH (08:53)
[2021-01-30] MEDS: PYRIDOXINE HCL 50 MG TABLET GT SCH (08:54)
[2021-01-30] MEDS: Z GUARD REMEDY 2 OZ OINT TP SCH ×2 (08:55→21:10)
[2021-01-30] MEDS: LISINOPRIL (5MG) 5 MG TABLET GT SCH (08:58)
[2021-01-30] MEDS: TIMOLOL 0.5% SOLN OPHTH 5 ML BOTTLE EACHEYE SCH ×2 (08:59→17:00)
[2021-01-30] MEDS: BRIMONIDINE TARTRATE OPHT SOLN 5 ML BOTTLE OP SCH ×2 (09:00→17:00)
[2021-01-30 09:05] LABS: BASOPHILS # (AUTO) 0.1 /CMM (0.0-0.2); BASOPHILS % (AUTO) 0.6 % (0.0-2.0); EOSINOPHILS % (AUTO) 2.6 % (0.0-6.0); HEMATOCRIT 29 % (39-51); HEMOGLOBIN 9.5 g/dL (13.5-17.5); LYMPHOCYTES # (AUTO) 0.9 /CMM (0.8-4.8); MEAN CORPUSCULAR HGB CONC 33 g/dl (31.0-36.0); MEAN CORPUSCULAR VOLUME 96 fL (80-96); MONOCYTES # (AUTO) 0.8 /CMM (0.1-1.30); MONOCYTES % (AUTO) 7.7 % (2.0-12.0); NEUTROPHILS # (AUTO) 8.2 /CMM (1.8-8.9); NEUTROPHILS % (AUTO) 80.1 % (43.0-81.0); PLATELET COUNT (AUTO) 489 /CMM (150-450); RED BLOOD CELL COUNT(AUTO) 3.02 MIL/uL (4.5-6.0); WHITE BLOOD COUNT (AUTO) 10.2 K/uL (4.3-11.0)
[2021-01-30 09:28] LABS: CALCIUM, SERUM 9.3 mg/dL (8.5-10.1); CREATININE 0.7 mg/dL (0.6-1.3); POTASSIUM 4.4 mmol/L (3.5-5.1)
[2021-01-30 10:00] VITALS: BP 149/77
--- NOTE | 2021-01-30 10:15 | NUR ---
wide awake, alert, non-verbal. contracted, both upper and lower extremities, on continues GTF, Jevity 1.2 at 55cc per hour, gt flushed without any problem.
[2021-01-30 12:00] VITALS: BP 149/77
[2021-01-30 16:42] VITALS: BP 133/73
[2021-01-30] MEDS: ACETAMINOPHEN 650 MG/20.3 ML UDC GT PRN (19:47)
[2021-01-30 20:00] VITALS: BP 108/74
--- NOTE | 2021-01-30 20:00 | NUR ---
RN NOTE PT RECEIVED IN BED SLEEPING OPENS EYES TO TOUCH, PT IS ON 8 L VIA T PIECE SATING 99%.THERE IS NO S/S OF DISTRESS NOTED. PT HAS TEM 100.8 TYLENOL GIVEN, COOLING MEASURE PROVIDED. PT HAS FEEDING TUBE CHECKED FOR PLACEMENT, NO RESIDUAL NOTED.
[2021-01-30] MEDS: ENOXAPARIN SODIUM 40 MG/0.4 ML DISP.SYRIN SQ SCH (21:10)
[2021-01-30] MEDS: LATANOPROST EYE DROP 0.005% 2.5 ML BOTTLE EACHEYE SCH (22:19)
[2021-01-30] MEDS: ATORVASTATIN 40 MG TABLET GT SCH (22:19)
[2021-01-31] MEDS: JEVITY 1.2 CAL 1,000 ML BOTTLE GT PRN (01:06)
[2021-01-31] MEDS: METOCLOPRAMIDE HCL 10 MG/2 ML VIAL IV SCH ×3 (01:43→16:53)
[2021-01-31 04:00] VITALS: BP 131/72
--- NOTE | 2021-01-31 07:12 | NUR ---
RN NOTE PT REMAINED STABLE THROUGHOUT MY SHIFT REPORT GIVEN TO ONCOMING SHIFT FOR SANDY.
[2021-01-31 08:00] VITALS: BP 148/59
[2021-01-31] MEDS: Z GUARD REMEDY 2 OZ OINT TP SCH ×2 (09:14→21:42)
[2021-01-31] MEDS: TIMOLOL 0.5% SOLN OPHTH 5 ML BOTTLE EACHEYE SCH ×2 (09:20→16:52)
[2021-01-31] MEDS: LORATADINE 10 MG TABLET GT SCH (09:21)
[2021-01-31] MEDS: ASPIRIN 81 MG TAB.CHEW GT SCH (09:21)
[2021-01-31] MEDS: DOCUSATE SODIUM LIQ 100 MG/10 ML UDC GT SCH ×2 (09:21→16:53)
[2021-01-31] MEDS: BISACODYL SUPP (10 MG) 10 MG/SUPP.RECT SUPP.RECT RC SCH (09:21)
[2021-01-31] MEDS: PANTOPRAZOLE 40 MG/PACK PACK GT SCH (09:21)
[2021-01-31] MEDS: POTASSIUM CHLORIDE 20 MEQ POWDER PACKET GT SCH (09:21)
[2021-01-31] MEDS: FERROUS SULFATE UDC 300 MG/5 ML UDC GT SCH ×2 (09:21→16:53)
[2021-01-31] MEDS: LISINOPRIL (5MG) 5 MG TABLET GT SCH (09:22)
[2021-01-31] MEDS: AMLODIPINE BESYLATE 10 MG TABLET GT SCH (09:22)
[2021-01-31] MEDS: BACLOFEN (10 MG) 10 MG TABLET GT SCH (09:22)
[2021-01-31] MEDS: FOLIC ACID 1 MG TABLET GT SCH (09:23)
[2021-01-31] MEDS: BRIMONIDINE TARTRATE OPHT SOLN 5 ML BOTTLE OP SCH ×2 (09:23→16:53)
[2021-01-31] MEDS: PYRIDOXINE HCL 50 MG TABLET GT SCH (09:24)
[2021-01-31] MEDS: BICALUTAMIDE 50 MG TABLET GT SCH (09:24)
[2021-01-31 12:00] VITALS: BP 110/59
[2021-01-31] MEDS: ALBUTEROL FS 2.5 MG/0.5 ML VIAL.NEB NEB SCH ×2 (13:12→19:49)
[2021-01-31] MEDS: IPRATROPIUM NEB FS 0.5 MG/2.5 ML AMPUL.NEB NEB SCH ×2 (13:12→19:49)
[2021-01-31] MEDS ORDERED: MEROPENEM 500 MG in IV NS 0.9% 50 ML IV SCH (13:30)
--- NOTE | 2021-01-31 13:40 | NUR ---
afebrile since met this am, suctioned him x 2 , thick, yellowish sputum,, able to cough when suctioned. appeared lethargic today 12 noon, suctioned by RT this time, per RT, moderate amount of tube feed noted on his T -piece, tube feed stopped right away, owing to the fact patient might get aspirated., today hospitalist dr DALEY made aware
[2021-01-31 16:00] VITALS: BP 116/60
[2021-01-31] MEDS: MEROPENEM 1 G in IV NS 0.9% 100 ML IV SCH ×2 (16:51→21:38)
[2021-01-31] MEDS: VANCOMYCIN 1 GM in IV D5W 250ml IV SCH (16:52)
[2021-01-31 20:00] VITALS: BP 125/68
--- NOTE | 2021-01-31 20:00 | NUR ---
RN NOTE PT RECEIVED IN BED AWAKE , PT IS ON 8 L VIA T PIECE SATING 96-97%.THERE IS NO S/S OF DISTRESS NOTED. PT IV ON LFA IS LEAKING, IV REMOVED AND INSERTED NEW IV 22 G ON R HAND. PT HAS G TUBE CLAMPED.
[2021-01-31 20:13] LABS: BASOPHILS # (AUTO) 0.1 /CMM (0.0-0.2); BASOPHILS % (AUTO) 0.8 % (0.0-2.0); EOSINOPHILS % (AUTO) 1.5 % (0.0-6.0); HEMATOCRIT 29 % (39-51); HEMOGLOBIN 9.3 g/dL (13.5-17.5); LYMPHOCYTES # (AUTO) 1.2 /CMM (0.8-4.8); LYMPHOCYTES % (AUTO) 13.2 % (20.0-44.0); MEAN CORPUSCULAR HGB CONC 32 g/dl (31.0-36.0); MEAN CORPUSCULAR VOLUME 95 fL (80-96); MONOCYTES # (AUTO) 0.6 /CMM (0.1-1.30); MONOCYTES % (AUTO) 7.1 % (2.0-12.0); NEUTROPHILS # (AUTO) 6.9 /CMM (1.8-8.9); NEUTROPHILS % (AUTO) 77.4 % (43.0-81.0); PLATELET COUNT (AUTO) 470 /CMM (150-450); RED BLOOD CELL COUNT(AUTO) 3.02 MIL/uL (4.5-6.0); WHITE BLOOD COUNT (AUTO) 8.9 K/uL (4.3-11.0)
[2021-01-31 20:17] LABS: CALCIUM, SERUM 9.4 mg/dL (8.5-10.1); CREATININE 0.9 mg/dL (0.6-1.3); POTASSIUM 4.5 mmol/L (3.5-5.1)
[2021-01-31] MEDS: ATORVASTATIN 40 MG TABLET GT SCH (21:38)
[2021-01-31] MEDS: ENOXAPARIN SODIUM 40 MG/0.4 ML DISP.SYRIN SQ SCH (21:40)
[2021-01-31] MEDS: LATANOPROST EYE DROP 0.005% 2.5 ML BOTTLE EACHEYE SCH (21:41)
[2021-02-01] MEDS: IPRATROPIUM NEB FS 0.5 MG/2.5 ML AMPUL.NEB NEB SCH ×4 (01:15→23:13)
[2021-02-01] MEDS: ALBUTEROL FS 2.5 MG/0.5 ML VIAL.NEB NEB SCH ×4 (01:15→23:13)
[2021-02-01] MEDS: METOCLOPRAMIDE HCL 10 MG/2 ML VIAL IV SCH ×3 (02:59→17:35)
[2021-02-01 04:00] VITALS: BP 107/76
[2021-02-01] MEDS: MEROPENEM 1 G in IV NS 0.9% 100 ML IV SCH ×3 (04:49→22:08)
--- NOTE | 2021-02-01 07:22 | NUR ---
RN NOTE REPORT GIVEN TO ONCOMING SHIFT FOR SANDY.
--- NOTE | 2021-02-01 07:30 | NUR ---
RN OPENING NOTES PT RECEIVED IN BED IN SEMI-FOWLERS WITH DX OF SEPSIS, PNA, AND RESPIRATORY FAILURE. PT ARMS AND LEGS ARE CONTRACTED. PT HAS TRACH AND CURRENTLY ON T-PIECE 8L 35% FiO2 SPO2 OF 100%. NO S/S OF SOB OR RESPIRATORY DISTRESS. PT IS NOT ALERT & ORIENTED, BUT OPENS EYES SPONTANEOUSLY. PT HAS GONCALVES CATH DRAINING CLEAR YELLOW URINE TO GRAVITY AND IS PATENT. PT G-TUBE INTACT, AUSCULTATED FOR POSITIVE PLACEMENT AND FLUSHED. CURRENTLY CLAMPED. PT SKIN IS INTACT AND HAS IV ON RIGHT HAND 22G. SPUTUM CULTURE PENDING. ALL SAFETY PRECAUTIONS IN PLACE. WILL CONTINUE TO MONITOR.
[2021-02-01 08:00] VITALS: BP 119/73
[2021-02-01] MEDS: ASPIRIN 81 MG TAB.CHEW GT SCH (10:15)
[2021-02-01] MEDS: BACLOFEN (10 MG) 10 MG TABLET GT SCH (10:15)
[2021-02-01] MEDS: BISACODYL SUPP (10 MG) 10 MG/SUPP.RECT SUPP.RECT RC SCH (10:16)
[2021-02-01] MEDS: LISINOPRIL (5MG) 5 MG TABLET GT SCH (10:16)
[2021-02-01] MEDS: BICALUTAMIDE 50 MG TABLET GT SCH (10:17)
[2021-02-01] MEDS: DOCUSATE SODIUM LIQ 100 MG/10 ML UDC GT SCH ×2 (10:17→17:36)
[2021-02-01] MEDS: AMLODIPINE BESYLATE 10 MG TABLET GT SCH (10:17)
[2021-02-01] MEDS: PYRIDOXINE HCL 50 MG TABLET GT SCH (10:17)
[2021-02-01] MEDS: POTASSIUM CHLORIDE 20 MEQ POWDER PACKET GT SCH (10:18)
[2021-02-01] MEDS: PANTOPRAZOLE 40 MG/PACK PACK GT SCH (10:18)
[2021-02-01] MEDS: FOLIC ACID 1 MG TABLET GT SCH (10:18)
[2021-02-01] MEDS: FERROUS SULFATE UDC 300 MG/5 ML UDC GT SCH ×2 (10:19→17:36)
[2021-02-01] MEDS: VANCOMYCIN 1 GM in IV D5W 250ml IV SCH (10:20)
[2021-02-01] MEDS: LORATADINE 10 MG TABLET GT SCH (10:28)
[2021-02-01] MEDS: TIMOLOL 0.5% SOLN OPHTH 5 ML BOTTLE EACHEYE SCH ×2 (11:09→17:35)
[2021-02-01] MEDS: BRIMONIDINE TARTRATE OPHT SOLN 5 ML BOTTLE OP SCH ×2 (11:09→17:35)
[2021-02-01] MEDS: Z GUARD REMEDY 2 OZ OINT TP SCH ×2 (11:10→22:06)
[2021-02-01 12:00] VITALS: BP 124/77
[2021-02-01 12:52] LABS: CALCIUM, SERUM 9.5 mg/dL (8.5-10.1); CREATININE 0.7 mg/dL (0.6-1.3)
[2021-02-01 16:00] VITALS: BP 136/66
--- NOTE | 2021-02-01 19:23 | NUR ---
RN CLOSING NOTES PT IN STABLE CONDITION ON T PIECE 5L 28% FIO2 SPO2 ABOVE 95% THROUGHOUT SHIFT, NO SIGN OF RESPIRATORY DISTRESS OR SHORTNESS OF BREATH. SANDY ENDORSED TO ELECTRONICS ASSEMBLER AND TESTER NURSE. FOLLOW UP WITH SPUTUM CULTURES AND RE-INITIATION OF G-TUBE FEEDINGS. ALL SAFETY MEASURES INITIATED.
[2021-02-01 20:00] VITALS: BP 105/56
[2021-02-01] MEDS: ATORVASTATIN 40 MG TABLET GT SCH (22:05)
[2021-02-01] MEDS: LATANOPROST EYE DROP 0.005% 2.5 ML BOTTLE EACHEYE SCH (22:05)
[2021-02-01] MEDS: ENOXAPARIN SODIUM 40 MG/0.4 ML DISP.SYRIN SQ SCH (22:06)
[2021-02-01] MEDS: JEVITY 1.2 CAL 1,000 ML BOTTLE GT PRN (22:11)
[2021-02-02] MEDS: METOCLOPRAMIDE HCL 10 MG/2 ML VIAL IV SCH ×3 (01:25→17:16)
[2021-02-02] MEDS: ALBUTEROL FS 2.5 MG/0.5 ML VIAL.NEB NEB SCH ×4 (01:28→19:49)
[2021-02-02] MEDS: IPRATROPIUM NEB FS 0.5 MG/2.5 ML AMPUL.NEB NEB SCH ×4 (01:28→19:49)
[2021-02-02] MEDS: VANCOMYCIN 1 GM in IV D5W 250ml IV SCH (01:28)
[2021-02-02 04:00] VITALS: BP 123/54
[2021-02-02] MEDS: MEROPENEM 1 G in IV NS 0.9% 100 ML IV SCH ×3 (05:12→21:06)
--- NOTE | 2021-02-02 07:20 | NUR ---
RN OPENING NOTES PT RECEIVED IN BED RESTING IN SEMI-FOWLERS. PT ON O2 THERAPY VIA T-PIECE HAS TRACH AT 5 LPM 28% FiO2 AND TOLERATING WELL. NO S/S OF SOB OR RESPIRATORY DISTRESS. PT GONCALVES CATHETER DRAINING CLEAR YELLOW URINE TO GRAVITY. PT G-TUBE INTACT, AUSCULTATED FOR POSITIVE PLACEMENT AND FLUSHED AND CURRENTLY RUNNING TUBE FEEDING JEVITY AT 30 ML/HR. PT RIGHT HAND 22G INTACT AND PATENT. SAFETY PRECAUTIONS IMPLEMENTED, SIDE RAILS UP X2, BED LOCKED IN LOWEST POSITION, CALL LIGHT WITHIN REACH. WILL CONTINUE TO MONITOR AND PROVIDE CARE THROUGHOUT SHIFT.
[2021-02-02 07:34] LABS: CALCIUM, SERUM 9.5 mg/dL (8.5-10.1); CREATININE 0.8 mg/dL (0.6-1.3); POTASSIUM 4.1 mmol/L (3.5-5.1)
[2021-02-02 08:00] VITALS: BP 99/74
[2021-02-02] MEDS: AMLODIPINE BESYLATE 10 MG TABLET GT SCH (09:00)
[2021-02-02] MEDS: LISINOPRIL (5MG) 5 MG TABLET GT SCH (09:00)
[2021-02-02] MEDS: ASPIRIN 81 MG TAB.CHEW GT SCH (09:07)
[2021-02-02] MEDS: BICALUTAMIDE 50 MG TABLET GT SCH (09:08)
[2021-02-02] MEDS: POTASSIUM CHLORIDE 20 MEQ POWDER PACKET GT SCH (09:09)
[2021-02-02] MEDS: LORATADINE 10 MG TABLET GT SCH (09:09)
[2021-02-02] MEDS: DOCUSATE SODIUM LIQ 100 MG/10 ML UDC GT SCH ×2 (09:09→17:14)
[2021-02-02] MEDS: BACLOFEN (10 MG) 10 MG TABLET GT SCH (09:09)
[2021-02-02] MEDS: PANTOPRAZOLE 40 MG/PACK PACK GT SCH (09:09)
[2021-02-02] MEDS: FERROUS SULFATE UDC 300 MG/5 ML UDC GT SCH ×2 (09:09→17:14)
[2021-02-02] MEDS: FOLIC ACID 1 MG TABLET GT SCH (09:09)
[2021-02-02] MEDS: BISACODYL SUPP (10 MG) 10 MG/SUPP.RECT SUPP.RECT RC SCH (09:10)
[2021-02-02] MEDS: PYRIDOXINE HCL 50 MG TABLET GT SCH (09:10)
[2021-02-02] MEDS: TIMOLOL 0.5% SOLN OPHTH 5 ML BOTTLE EACHEYE SCH ×2 (09:10→17:16)
[2021-02-02] MEDS: Z GUARD REMEDY 2 OZ OINT TP SCH ×2 (09:11→21:12)
[2021-02-02] MEDS: BRIMONIDINE TARTRATE OPHT SOLN 5 ML BOTTLE OP SCH ×2 (09:12→17:16)
[2021-02-02 16:00] VITALS: BP 102/65
--- NOTE | 2021-02-02 18:51 | NUR ---
RN CLOSING NOTES PT IN BED RESTING IN SEMI-FOWLERS. PT ON O2 THERAPY VIA T-PIECE HAS TRACH AT 6 LPM 28% FiO2 AND TOLERATING WELL. NO S/S OF SOB OR RESPIRATORY DISTRESS. PT GONCALVES CATHETER DRAINING CLEAR YELLOW URINE TO GRAVITY. PT G-TUBE INTACT, AUSCULTATED FOR POSITIVE PLACEMENT AND FLUSHED AND CURRENTLY RUNNING TUBE FEEDING JEVITY AT 30 ML/HR. TUBE FEEDING INCREASED TO 35 ML/HR AND TOLERATING WELL. PT RIGHT HAND 22G INTACT AND PATENT. SAFETY PRECAUTIONS IMPLEMENTED, SIDE RAILS UP X2, BED LOCKED IN LOWEST POSITION, CALL LIGHT WITHIN REACH. WILL ENDORSE CARE TO UPCOMING SHIFT.
--- NOTE | 2021-02-02 19:45 | NUR ---
RN NOTE RECEIVED PT, ON COOL AEROSOL AT 5L, 28 % FIO2. O2 SAT AT 97 % NO SIGNS OF DISTRESS NOTED. GT PATENT AND INPLACE, ON GT FEEDING OF JEVITY 1.2, NO RESIDUALS NOTED. KEPT HOB ELEVATED. GONCALVES DRAINING WELL. NO SIGNS OF PAIN OR DISCOMFORT. IV PATENT AND INTACT, FLUSHES WELL. ALL SAFETY MEASURES IN PLACE PER PROTOCOL, CALL LIGHT WITHIN REACH, BED LOCKED IN LOWEST POSITION. SIDE RAILS UP X 2. WILL CONTINUE TO MONITOR.
[2021-02-02 20:00] VITALS: BP 109/80
[2021-02-02] MEDS: ATORVASTATIN 40 MG TABLET GT SCH (21:05)
[2021-02-02] MEDS: ENOXAPARIN SODIUM 40 MG/0.4 ML DISP.SYRIN SQ SCH (21:08)
[2021-02-02] MEDS: LATANOPROST EYE DROP 0.005% 2.5 ML BOTTLE EACHEYE SCH (21:12)
[2021-02-03] MEDS: IPRATROPIUM NEB FS 0.5 MG/2.5 ML AMPUL.NEB NEB SCH ×4 (01:32→20:02)
[2021-02-03] MEDS: ALBUTEROL FS 2.5 MG/0.5 ML VIAL.NEB NEB SCH ×4 (01:32→20:02)
[2021-02-03] MEDS: METOCLOPRAMIDE HCL 10 MG/2 ML VIAL IV SCH ×3 (01:42→17:10)
[2021-02-03 04:00] VITALS: BP 135/56
[2021-02-03] MEDS: MEROPENEM 1 G in IV NS 0.9% 100 ML IV SCH (05:02)
[2021-02-03] MEDS: JEVITY 1.2 CAL 1,000 ML BOTTLE GT PRN (05:16)
[2021-02-03 06:12] LABS: BASOPHILS # (AUTO) 0.1 /CMM (0.0-0.2); BASOPHILS % (AUTO) 0.8 % (0.0-2.0); EOSINOPHILS % (AUTO) 3.5 % (0.0-6.0); HEMATOCRIT 26 % (39-51); HEMOGLOBIN 8.4 g/dL (13.5-17.5); LYMPHOCYTES # (AUTO) 0.9 /CMM (0.8-4.8); LYMPHOCYTES % (AUTO) 11.5 % (20.0-44.0); MEAN CORPUSCULAR HGB CONC 33 g/dl (31.0-36.0); MEAN CORPUSCULAR VOLUME 95 fL (80-96); MONOCYTES # (AUTO) 0.7 /CMM (0.1-1.30); MONOCYTES % (AUTO) 8.4 % (2.0-12.0); NEUTROPHILS # (AUTO) 5.9 /CMM (1.8-8.9); NEUTROPHILS % (AUTO) 75.8 % (43.0-81.0); PLATELET COUNT (AUTO) 425 /CMM (150-450); RED BLOOD CELL COUNT(AUTO) 2.71 MIL/uL (4.5-6.0); WHITE BLOOD COUNT (AUTO) 7.8 K/uL (4.3-11.0)
--- NOTE | 2021-02-03 06:51 | NUR ---
RN CLOSING NOTE PT CONTINUE ON COOL AEROSOL, TOLERATING WITH O2 SAT OF 98 %. . SUCTIONED NEEDED. NO SIGNS OF DISTRESS. PT TOLERATES GT FEEDING AT 55 ML/HR. NO RESIDUALS NOTED. FLUSHED WITH WATER ORDERED. NO S/SX OF ASPIRATION. KEPT HOB ELEVATED. IV REMAIN PATENT AND INTACT. GONCALVES IN PLACE, DRAINING WELL. ALL SAFETY MEASURES MAINTAINED. WILL ENDORSE TO NEXT SHIFT NURSE FOR SANDY.
[2021-02-03 06:54] LABS: CALCIUM, SERUM 8.3 mg/dL (8.5-10.1); CREATININE 0.7 mg/dL (0.6-1.3); PHOSPHORUS 2.4 mg/dL (2.5-4.9); POTASSIUM 3.9 mmol/L (3.5-5.1)
--- NOTE | 2021-02-03 07:25 | NUR ---
RN OPENING NOTES PT RECEIVED IN BED RESTING IN SEMI-FOWLERS. PT ON O2 THERAPY VIA T-PIECE HAS TRACH AT 5 LPM 28% FiO2 AND TOLERATING WELL. NO S/S OF SOB OR RESPIRATORY DISTRESS. PT GONCALVES CATHETER DRAINING CLEAR YELLOW URINE TO GRAVITY. PT G-TUBE INTACT, AUSCULTATED FOR POSITIVE PLACEMENT AND FLUSHED AND CURRENTLY RUNNING TUBE FEEDING JEVITY AT 55 ML/HR. PT RIGHT HAND 22G INTACT AND PATENT. SAFETY PRECAUTIONS IMPLEMENTED, SIDE RAILS UP X2, BED LOCKED IN LOWEST POSITION, CALL LIGHT WITHIN REACH. WILL CONTINUE TO MONITOR AND PROVIDE CARE THROUGHOUT SHIFT.
[2021-02-03 08:00] VITALS: BP 131/68
[2021-02-03] MEDS: BRIMONIDINE TARTRATE OPHT SOLN 5 ML BOTTLE OP SCH ×2 (09:00→16:18)
[2021-02-03] MEDS: TIMOLOL 0.5% SOLN OPHTH 5 ML BOTTLE EACHEYE SCH ×2 (09:00→16:18)
[2021-02-03] MEDS: DOCUSATE SODIUM LIQ 100 MG/10 ML UDC GT SCH ×2 (09:53→16:17)
[2021-02-03] MEDS: LORATADINE 10 MG TABLET GT SCH (09:53)
[2021-02-03] MEDS: FOLIC ACID 1 MG TABLET GT SCH (09:53)
[2021-02-03] MEDS: LISINOPRIL (5MG) 5 MG TABLET GT SCH (09:53)
[2021-02-03] MEDS: PYRIDOXINE HCL 50 MG TABLET GT SCH (09:53)
[2021-02-03] MEDS: BICALUTAMIDE 50 MG TABLET GT SCH (09:53)
[2021-02-03] MEDS: PANTOPRAZOLE 40 MG/PACK PACK GT SCH (09:53)
[2021-02-03] MEDS: AMLODIPINE BESYLATE 10 MG TABLET GT SCH (09:54)
[2021-02-03] MEDS: FERROUS SULFATE UDC 300 MG/5 ML UDC GT SCH ×2 (09:54→16:17)
[2021-02-03] MEDS: POTASSIUM CHLORIDE 20 MEQ POWDER PACKET GT SCH (09:54)
[2021-02-03] MEDS: BISACODYL SUPP (10 MG) 10 MG/SUPP.RECT SUPP.RECT RC SCH (09:54)
[2021-02-03] MEDS: BACLOFEN (10 MG) 10 MG TABLET GT SCH (09:54)
[2021-02-03] MEDS: ASPIRIN 81 MG TAB.CHEW GT SCH (09:54)
[2021-02-03] MEDS: Z GUARD REMEDY 2 OZ OINT TP SCH ×2 (09:55→22:10)
[2021-02-03] MEDS ORDERED: NEUTRA PHOS 1 POWD.PACKET GT ONE (10:30)
[2021-02-03] MEDS: GENTAMICIN 80 MG in IV D5W 50 ML IV SCH ×2 (11:19→21:32)
[2021-02-03 16:00] VITALS: BP 100/75
[2021-02-03] MEDS: ACETAMINOPHEN 650 MG/20.3 ML UDC GT PRN (16:36)
--- NOTE | 2021-02-03 18:53 | NUR ---
RN CLOSING NOTES PT IN BED RESTING IN SEMI-FOWLERS. PT ON O2 THERAPY VIA T-PIECE HAS TRACH AT 5 LPM 28% FiO2 AND TOLERATING WELL. NO S/S OF SOB OR RESPIRATORY DISTRESS. PT GONCALVES CATHETER DRAINING CLEAR YELLOW URINE TO GRAVITY. PT G-TUBE INTACT, AUSCULTATED FOR POSITIVE PLACEMENT AND FLUSHED AND CURRENTLY RUNNING TUBE FEEDING JEVITY AT 55 ML/HR. PT RIGHT HAND 22G INTACT AND PATENT. SAFETY PRECAUTIONS IMPLEMENTED, SIDE RAILS UP X2, BED LOCKED IN LOWEST POSITION, CALL LIGHT WITHIN REACH. WILL ENDORSE CARE TO UPCOMING SHIFT. FAMILY, MYLES IGLESIAS (SISTER) [phone] IS REQUESTING THAT CASE MANAGEMENT/ SOCIAL SERVICE CONTACT HER PRIOR TO DISCHARGE. PATIENT FAMILY IS REQUESTING THAT PATIENT NOT GO BACK TO [facility]. WILL ENDORSE TO LAB ANIMAL TECHNOLOGIST.
[2021-02-03 20:00] VITALS: BP 111/60
--- NOTE | 2021-02-03 20:07 | NUR ---
MS/TELE/RN RECEIVED PATIENT IN BED APPEAR SLEEPING, APPEAR COMFORTABLE, NO SIGNS OF DISTRESS NOTED, HOB ELEVATED, G TUBE FEEDING INFUSING, WILL MONITOR.
[2021-02-03] MEDS: ATORVASTATIN 40 MG TABLET GT SCH (21:33)
[2021-02-03] MEDS: ENOXAPARIN SODIUM 40 MG/0.4 ML DISP.SYRIN SQ SCH (21:34)
[2021-02-03] MEDS: LATANOPROST EYE DROP 0.005% 2.5 ML BOTTLE EACHEYE SCH (22:12)
[2021-02-04] MEDS: JEVITY 1.2 CAL 1,000 ML BOTTLE GT PRN ×2 (01:09→17:58)
[2021-02-04] MEDS: ALBUTEROL FS 2.5 MG/0.5 ML VIAL.NEB NEB SCH ×4 (02:02→19:54)
[2021-02-04] MEDS: IPRATROPIUM NEB FS 0.5 MG/2.5 ML AMPUL.NEB NEB SCH ×4 (02:02→19:54)
[2021-02-04] MEDS: METOCLOPRAMIDE HCL 10 MG/2 ML VIAL IV SCH ×3 (03:39→17:46)
[2021-02-04 04:00] VITALS: BP 116/59
--- NOTE | 2021-02-04 06:13 | NUR ---
BLAS/RN PATIENT AWAKE, APPEAR COMFORTABLE, NO SIGNS OF DISTRESS NOTED, HOB ELEVATED WITH G TUBE FEEDING INFUSING, ALL NEEDS ATTENDED AT THIS TIME, WILL CONTINUE TO MONITOR.
[2021-02-04 07:19] LABS: BASOPHILS % (AUTO) 0.6 % (0.0-2.0); EOSINOPHILS % (AUTO) 5.3 % (0.0-6.0); HEMATOCRIT 26 % (39-51); HEMOGLOBIN 8.6 g/dL (13.5-17.5); LYMPHOCYTES % (AUTO) 12.8 % (20.0-44.0); MEAN CORPUSCULAR HGB CONC 33 g/dl (31.0-36.0); MEAN CORPUSCULAR VOLUME 95 fL (80-96); MONOCYTES # (AUTO) 0.7 K/uL (0.1-1.30); MONOCYTES % (AUTO) 9.1 % (2.0-12.0); NEUTROPHILS # (AUTO) 5.4 K/uL (1.8-8.9); NEUTROPHILS % (AUTO) 72.2 % (43.0-81.0); PLATELET COUNT (AUTO) 424 K/uL (150-450); RED BLOOD CELL COUNT(AUTO) 2.75 MIL/uL (4.5-6.0); WHITE BLOOD COUNT (AUTO) 7.4 K/uL (4.3-11.0)
[2021-02-04 07:21] LABS: CALCIUM, SERUM 8.9 mg/dL (8.5-10.1); CREATININE 0.6 mg/dL (0.6-1.3); MAGNESIUM 2.1 mg/dL (1.8-2.4); PHOSPHORUS 3.4 mg/dL (2.5-4.9); POTASSIUM 4.7 mmol/L (3.5-5.1)
--- NOTE | 2021-02-04 07:45 | NUR ---
MS/RN OPENING NOTES RECEIVED PATIENT ON BED OBTUNDED, NONVERBAL. PATIENT IN 5L COOL AEROSOL VIA T-PIECE SATURATION 100%. PATIENT IN NO APPARENT RESPIRATORY DISTRESS NOTED. NO SIGN AND SYMPTOM OF PAIN NOTED. WILL CONTINUE TO MONITOR.
[2021-02-04] MEDS: BISACODYL SUPP (10 MG) 10 MG/SUPP.RECT SUPP.RECT RC SCH (08:44)
[2021-02-04] MEDS: ASPIRIN 81 MG TAB.CHEW GT SCH (08:44)
[2021-02-04] MEDS: PANTOPRAZOLE 40 MG/PACK PACK GT SCH (08:44)
[2021-02-04] MEDS: POTASSIUM CHLORIDE 20 MEQ POWDER PACKET GT SCH (08:44)
[2021-02-04] MEDS: DOCUSATE SODIUM LIQ 100 MG/10 ML UDC GT SCH ×2 (08:44→17:46)
[2021-02-04] MEDS: FERROUS SULFATE UDC 300 MG/5 ML UDC GT SCH ×2 (08:44→17:46)
[2021-02-04] MEDS: BACLOFEN (10 MG) 10 MG TABLET GT SCH (08:45)
[2021-02-04] MEDS: LORATADINE 10 MG TABLET GT SCH (08:45)
[2021-02-04] MEDS: LISINOPRIL (5MG) 5 MG TABLET GT SCH (08:45)
[2021-02-04] MEDS: FOLIC ACID 1 MG TABLET GT SCH (08:45)
[2021-02-04] MEDS: AMLODIPINE BESYLATE 10 MG TABLET GT SCH (08:45)
[2021-02-04] MEDS: GENTAMICIN 80 MG in IV D5W 50 ML IV SCH ×2 (08:46→20:45)
[2021-02-04] MEDS: Z GUARD REMEDY 2 OZ OINT TP SCH ×2 (09:20→20:49)
[2021-02-04] MEDS: BRIMONIDINE TARTRATE OPHT SOLN 5 ML BOTTLE OP SCH ×2 (09:20→17:58)
[2021-02-04] MEDS: BICALUTAMIDE 50 MG TABLET GT SCH (09:23)
[2021-02-04] MEDS: PYRIDOXINE HCL 50 MG TABLET GT SCH (09:23)
[2021-02-04] MEDS: TIMOLOL 0.5% SOLN OPHTH 5 ML BOTTLE EACHEYE SCH ×2 (10:16→17:57)
[2021-02-04 18:00] VITALS: BP 115/59
--- NOTE | 2021-02-04 19:08 | NUR ---
MS/RN CLOSING NOTES PATIENT IS ON BED CONFUSED. PATIENT IS ON 5L COOL AEROSOL VIA T-PIECE 100%. PATIENT IN NO APPARENT RESPIRATORY DISTRESS NOTED. NO SIGN AND SYMPTOM OF PAIN NOTED AT THIS TIME. TRACHEOSTOMY CARE WAS DONE. SEEN AND EXAMINED BY MD WITH ORDERS MADE AND CARRIED OUT. ALL DUE MEDICATIONS WAS GIVE. IV ACCESS AT RIGHT HAND # 22 G PATENT AND INTACT. SAFETY PRECAUTION WAS IN PLACED. BED IN LOWEST POSITION AND LOCKED. SIDE RAILS LOCKED X2. CALL LIGHT WITH IN REACH. WILL ENDORSED TO ROPING MACHINE TENDER FOR SANDY.
--- NOTE | 2021-02-04 20:00 | NUR ---
MS RN NOTE PATIENT IS BED AWAKE NON VERBAL. ON 5L COOL AEROSOL VIA T-PIECE 100%. NO SOB NO DISTRESS NOTED. NO SIGN AND SYMPTOM OF PAIN NOTED AT THIS TIME. SUCTION SECRETION DONE AND PRN . ALL DUE MEDICATIONS GIVEN ORDERED NO ASE NOTED , IV ACCESS AT RIGHT HAND # 22 G PATENT AND INTACT. GT FEEDING JEVITY 1.2 AT 55CC /HR INFUSING WELL . NO RESIDUAL NOTED . TEMP 100.7 COOLING MEASURES AND BED BATH GIVEN ,TYLENOL 650 MG GIVEN ORDERED WILL CONTINUE TO MONITOR PTS . SAFETY PRECAUTION WAS IN PLACED. BED IN LOWEST POSITION AND LOCKED. SIDE RAILS LOCKED X2. CALL LIGHT WITH IN REACH. WILL ENDORSED TO FLOOR WORKER WELL SERVICE FOR SANDY.
[2021-02-04] MEDS: ACETAMINOPHEN 650 MG/20.3 ML UDC GT PRN (20:31)
[2021-02-04] MEDS: ENOXAPARIN SODIUM 40 MG/0.4 ML DISP.SYRIN SQ SCH (20:35)
[2021-02-04] MEDS: LATANOPROST EYE DROP 0.005% 2.5 ML BOTTLE EACHEYE SCH (21:54)
[2021-02-04] MEDS: ATORVASTATIN 40 MG TABLET GT SCH (21:54)
[2021-02-05] MEDS: IPRATROPIUM NEB FS 0.5 MG/2.5 ML AMPUL.NEB NEB SCH ×4 (01:58→19:58)
[2021-02-05] MEDS: ALBUTEROL FS 2.5 MG/0.5 ML VIAL.NEB NEB SCH ×4 (01:58→19:58)
[2021-02-05] MEDS: METOCLOPRAMIDE HCL 10 MG/2 ML VIAL IV SCH ×3 (02:31→17:25)
[2021-02-05 06:27] LABS: BASOPHILS # (AUTO) 0.1 K/uL (0.0-0.2); BASOPHILS % (AUTO) 0.8 % (0.0-2.0); EOSINOPHILS % (AUTO) 6.4 % (0.0-6.0); HEMATOCRIT 21 % (39-51); LYMPHOCYTES # (AUTO) 1.2 K/uL (0.8-4.8); MEAN CORPUSCULAR HGB CONC 33 g/dl (31.0-36.0); MEAN CORPUSCULAR VOLUME 94 fL (80-96); MONOCYTES # (AUTO) 0.8 K/uL (0.1-1.30); MONOCYTES % (AUTO) 9.5 % (2.0-12.0); NEUTROPHILS # (AUTO) 5.7 K/uL (1.8-8.9); NEUTROPHILS % (AUTO) 69.3 % (43.0-81.0); PLATELET COUNT (AUTO) 451 K/uL (150-450); RED BLOOD CELL COUNT(AUTO) 2.22 MIL/uL (4.5-6.0); WHITE BLOOD COUNT (AUTO) 8.2 K/uL (4.3-11.0)
[2021-02-05 06:43] LABS: CALCIUM, SERUM 8.9 mg/dL (8.5-10.1); CREATININE 0.7 mg/dL (0.6-1.3); HEMOGLOBIN 6.9 g/dL (13.5-17.5); MAGNESIUM 2.4 mg/dL (1.8-2.4); PHOSPHORUS 3.8 mg/dL (2.5-4.9)
--- NOTE | 2021-02-05 06:51 | NUR ---
PT IN BED,NON VERBAL REMAINS ON TRACH AT 5L COOL AEROSOL , DENIES PAIN, NOT IN DISTRESS, O2 SAT OF 96-97%, CALL LIGHT WITHIN REACH, NEEDS ATTENDED TOO , RECEIVED A CALL FROM LABS CRITICAL RESULT OF HGB 6.9 HCT [address] PANCHAL WITH ORDER MADE AND CARRIED OUT TO GIVE 1 UNIT PRBC WILL ENDORSE TO RN DAY SHIFT FOR CONTINUITY OF CARE
--- NOTE | 2021-02-05 07:50 | NUR ---
RN OPENING NOTES RECEIVED PATIENT IN BED. ASLEEP. PATIENT ON 5 LITERS COOL AEROSOL SATURATING WELL AT THIS TIME. NO S/S OF PAIN SUCH FACIAL GRIMACING, MOANING OR GUARDING. GONCALVES CATH IN PLACE DRAINING CLEAR YELLOW URINE. G-TUBE RUNNING JEVITY 1.2 @ 55 MLS/HR. R HAND IV ACCESS G #[address], SL. SAFETY PRECAUTIONS IN PLACE; BED IN LOW POSITION AND LOCKED, RAILS UP X2, CALL LIGHT WITHIN REACH. WILL CONTINUE TO MONITOR PATIENT.
--- NOTE | 2021-02-05 08:41 | NUR ---
RN NOTES LAB CALLED WITH A TROUGH LEVEL FOR GENTAMICIN OF 2.5. MADE AWARE.
[2021-02-05] MEDS: POTASSIUM CHLORIDE 20 MEQ POWDER PACKET GT SCH (09:00)
[2021-02-05] MEDS: BICALUTAMIDE 50 MG TABLET GT SCH (09:28)
[2021-02-05] MEDS: PANTOPRAZOLE 40 MG/PACK PACK GT SCH (09:28)
[2021-02-05] MEDS: ASPIRIN 81 MG TAB.CHEW GT SCH (09:28)
[2021-02-05] MEDS: BACLOFEN (10 MG) 10 MG TABLET GT SCH (09:28)
[2021-02-05] MEDS: BISACODYL SUPP (10 MG) 10 MG/SUPP.RECT SUPP.RECT RC SCH (09:28)
[2021-02-05] MEDS: PYRIDOXINE HCL 50 MG TABLET GT SCH (09:28)
[2021-02-05] MEDS: LORATADINE 10 MG TABLET GT SCH (09:29)
[2021-02-05] MEDS: AMLODIPINE BESYLATE 10 MG TABLET GT SCH (09:30)
[2021-02-05] MEDS: LISINOPRIL (5MG) 5 MG TABLET GT SCH (09:30)
[2021-02-05] MEDS: FOLIC ACID 1 MG TABLET GT SCH (09:30)
[2021-02-05] MEDS: TIMOLOL 0.5% SOLN OPHTH 5 ML BOTTLE EACHEYE SCH ×2 (09:31→17:29)
[2021-02-05] MEDS: BRIMONIDINE TARTRATE OPHT SOLN 5 ML BOTTLE OP SCH ×2 (09:31→17:30)
[2021-02-05] MEDS: DOCUSATE SODIUM LIQ 100 MG/10 ML UDC GT SCH ×2 (09:31→17:25)
[2021-02-05] MEDS: FERROUS SULFATE UDC 300 MG/5 ML UDC GT SCH ×2 (09:31→17:25)
[2021-02-05] MEDS: Z GUARD REMEDY 2 OZ OINT TP SCH ×2 (09:32→21:18)
[2021-02-05] MEDS ORDERED: SOD FERRIC GLUC 125 MG in IV NS 0.9% 100 ML IV SCH (14:00)
[2021-02-05] MEDS ORDERED: GENTAMICIN 80 MG in IV D5W 50 ML IV SCH ×2 (15:00→20:00)
[2021-02-05 15:17] VITALS: BP 121/76
[2021-02-05 15:38] VITALS: BP 109/55
[2021-02-05 16:08] VITALS: BP 115/71
[2021-02-05 17:10] VITALS: BP 127/71
[2021-02-05] MEDS: JEVITY 1.2 CAL 1,000 ML BOTTLE GT PRN (18:57)
--- NOTE | 2021-02-05 19:22 | NUR ---
RN NOTES BLOOD TRANSFUSION ENDED ON TIME, PATIENT TOLERATED WELL. BP: 124/62, HR 91, T 100.2, R 18, 02 98
--- NOTE | 2021-02-05 19:23 | NUR ---
RN CLOSING NOTES PATIENT REMAINS IN BED, AWAKE, NON-VERBAL. PATIENT ON 5 LITERS COOL AEROSOL SATURATING WELL. NO S/S OF PAIN SUCH FACIAL GRIMACING, MOANING OR GUARDING. GONCALVES CATH IN PLACE DRAINING CLEAR YELLOW URINE WITH A DAILY OUTPUT OF 550 MLS. G-TUBE RUNNING JEVITY 1.2 @ 55 MLS/HR. R HAND IV ACCESS G #[address], SL MIDLINE IN PLACE WELL. 1 UNIT PRBC TRANSFUSED; PATIENT TOLERATED WELL. ALL NEEDS ATTENDED THROUGHOUT THE DAY. D/C DONE AND ENDORSED TO ENVIRONMENTAL STUDIES FACULTY MEMBER. SAFETY PRECAUTIONS IN PLACE; BED IN LOW POSITION AND LOCKED, RAILS UP X2, CALL LIGHT WITHIN REACH. ENDORSED TO SANDY TO ENVIRONMENTAL STUDIES FACULTY MEMBER NURSE.
[2021-02-05] MEDS: ACETAMINOPHEN 650 MG/20.3 ML UDC GT PRN (20:07)
--- NOTE | 2021-02-05 20:10 | NUR ---
RN NOTES NOTED PT'S TEMP IS AT 100.2@2000; PRN MEDICATION GIVEN AND COOLING MEASURES RENDERED. MARINE GEOLOGIST MADE AWARE. WILL CONTINUE TO MONITOR AND ASSESS THROUGHOUT THE SHIFT.
--- NOTE | 2021-02-05 20:50 | NUR ---
RN NOTES ENDORSEMENT REPORT GIVEN TO ROSALINDA LOREDO. PT WILL BE DC FROM [facility] AND WILL TRANSFERRED TO [facility]. AMERICAN [employer]ARD CERTIFIED ORTHOTIST MADE.
[2021-02-05] MEDS: ATORVASTATIN 40 MG TABLET GT SCH (21:12)
[2021-02-05] MEDS: ENOXAPARIN SODIUM 40 MG/0.4 ML DISP.SYRIN SQ SCH (21:15)
[2021-02-05] MEDS: LATANOPROST EYE DROP 0.005% 2.5 ML BOTTLE EACHEYE SCH (21:17)
--- NOTE | 2021-02-05 22:00 | NUR ---
RN NOTES PATIENT DISCHARGE GOING TO [facility], PT IN STABLE CONDITION AND VITAL SIGNS WNL, PT NON VERBAL; IN NO ACUTE DISTRESS NOTED, BREATHING UNLABORED. DISCHARGE INSTRUCTIONS GIVEN, ALSO PROVIDED DISCHARGE PACKET WHICH INCLUDES MED RECORDS AND PRESCRIPTION.IV ACCESS MAINTAINED FLUSHING AND PATENT. ROSALINDA LOREDO RECEIVED PT. SPACE ENGINEER MADE AWARE.
--- NOTE | 2021-02-05 22:05 | NUR ---
RN NOTES CALLED PT'S RELATIVE DON [phone], ADVISED PT HAS BEEN TRANSFERRED TO [facility] IN ROOM 274. DON ACKNOWLEDGED. ANALYSIS ENGINEER MADE AWARE.
--- NOTE | 2021-02-05 22:22 | NUR ---
RT PATIENT WITH SHILEY 8 TRACH WAS TRANSFERRED TO [facility] FROM [facility] . NO SOB NOTED DURING TRANSPORT , AIRWAY PATENT AND SECURED. ENDORSED PATIENT TO THE ASSIGNED RT. Addendum: 02/05/21 at 2226 by EL JACOBSON RT Amended: Links added.
[2021-02-06] MEDS ORDERED: ONDA4TAB5 GT (08:58)
[2021-02-06] MEDS ORDERED: POTA20TA10 GT (08:58)
[2021-02-06] MEDS ORDERED: ALBU2.5V13 IH (08:58)
[2021-02-06] MEDS ORDERED: AMLO10TA4 GT (08:58)
[2021-02-06] MEDS ORDERED: ENOX40DI SQ (08:58)
[2021-02-06] MEDS ORDERED: IPRA0.2S9 IH (08:58)
[2021-02-06] MEDS ORDERED: GENT40VI2 IM (08:58)
[2021-02-06] MEDS ORDERED: LATA2.5D2 OP (08:58)
[2021-02-06] MEDS ORDERED: METO-295 GT (08:58)
[2021-02-06] MEDS ORDERED: SOD62.5V IV (08:58)
== END 2021-02-05 23:38 | DRG 4 ==
LOC: ER 16:11 → ICU 18:07 → TELE-TD 01-27 18:33 → MEDSG1 01-29 12:10
PROVIDERS: ADMIT Nurse Practitioner Family; ATTEND Nurse Practitioner Family
PROC: 5A1955Z Respiratory Ventilation, Greater than 96 Consecutive Hours (ICD-10-PCS; principal; 2021-01-18)
PROC: 0BH18EZ Insertion of Endotracheal Airway into Trachea, Via Natural or Artificial Opening Endoscopic (ICD-10-PCS; 2021-01-18)
PROC: 02HV33Z Insertion of Infusion Device into Superior Vena Cava, Percutaneous Approach (ICD-10-PCS; 2021-01-18)
PROC: B548ZZA Ultrasonography of Superior Vena Cava, Guidance (ICD-10-PCS; 2021-01-18)
PROC: 0B113F4 Bypass Trachea to Cutaneous with Tracheostomy Device, Percutaneous Approach (ICD-10-PCS; 2021-01-26)
PROC: 0BJ08ZZ Inspection of Tracheobronchial Tree, Via Natural or Artificial Opening Endoscopic (ICD-10-PCS; 2021-01-26)
PROC: 05H933Z Insertion of Infusion Device into Right Brachial Vein, Percutaneous Approach (ICD-10-PCS; 2021-02-05)
PROC: 30233N1 Transfusion of Nonautologous Red Blood Cells into Peripheral Vein, Percutaneous Approach (ICD-10-PCS; 2021-02-05)
DX: A41.9 Sepsis, unspecified organism (principal); J69.0 Pneumonitis due to inhalation of food and vomit; J96.01 Acute respiratory failure with hypoxia; G93.41 Metabolic encephalopathy; I21.4 Non-ST elevation (NSTEMI) myocardial infarction; J15.1 Pneumonia due to Pseudomonas; J90 Pleural effusion, not elsewhere classified; N39.0 Urinary tract infection, site not specified; N17.9 Acute kidney failure, unspecified; K56.7 Ileus, unspecified; I25.10 Atherosclerotic heart disease of native coronary artery without angina pectoris; N40.0 Benign prostatic hyperplasia without lower urinary tract symptoms; I10 Essential (primary) hypertension; Z86.73 Personal history of transient ischemic attack (TIA), and cerebral infarction without residual deficits; D72.819 Decreased white blood cell count, unspecified; E87.6 Hypokalemia; E83.39 Other disorders of phosphorus metabolism; Z20.822 Contact with and (suspected) exposure to COVID-19; K44.9 Diaphragmatic hernia without obstruction or gangrene; F32.9 Major depressive disorder, single episode, unspecified; D64.9 Anemia, unspecified; Z85.47 Personal history of malignant neoplasm of testis; Z93.1 Gastrostomy status; Y95 Nosocomial condition; R13.10 Dysphagia, unspecified; M62.40 Contracture of muscle, unspecified site; F43.10 Post-traumatic stress disorder, unspecified; X58.XXXA Exposure to other specified factors, initial encounter; Y92.9 Unspecified place or not applicable; F41.9 Anxiety disorder, unspecified; Z79.82 Long term (current) use of aspirin; Z79.899 Other long term (current) drug therapy; K21.9 Gastro-esophageal reflux disease without esophagitis; I25.2 Old myocardial infarction; G80.9 Cerebral palsy, unspecified; Z86.59 Personal history of other mental and behavioral disorders; R73.9 Hyperglycemia, unspecified; B95.8 Unspecified staphylococcus as the cause of diseases classified elsewhere
CPT/HCPCS: 31623; 31720; 36415; 36600; 70450-TC; 71045-TC; 74018; 80048-TC; 80053-TC; 80061-TC; 80076-TC; 80170-TC; 80202-TC; 82803-TC; 82962-TC; 83605-TC; 83735-TC; 84100-TC; 84478-TC; 84484-TC; 85025-TC; 85730-TC; 86850-TC; 87040-TC; 87070-TC; 87081-TC; 87086-TC; 87186-TC; 94003-TC; 94640-TC; 94664-TC; 94668-TC; 94760-TC; 94762-TC; 94799-TC; 99082-TC; A6253; A6403; A7526; A9563; G0378; J1580; J1650; J2185; J2405; J2765; J2916; J3370; J3475; J3480; J3490; J7030; J7040; J7050; J7060; P9016; U0003

== ENCOUNTER 2021-02-05 17:23 | Inpatient (IN) | payer MEDICARE, OTHER ==
[~2021-02-05] VITALS: Ht 177.8 cm; Wt 88.9 kg
[~2021-02-05 17:23] MED LIST: ACET-2605 GT; ACET-868 GT; AMLO10TA4 GT; ASPI-1169 GT; ATOR10TA GT; BACL10TA GT; BICA50TA8 GT; BISA10SU11 RC; BRIM5DRO3 EACHEYE; DOCU50LI GT; ESCI10TA GT; FERR300L GT; FOLI0.4T6 GT; LATA2.5D15 EACHEYE; LISI-768 GT; LORA10TA7 GT; MAGN400O6 GT; NA P133E RC; PANT40SU2 GT; PIPE3.379 IV; PYRI25TA4 GT; TIMO5SOL11 EACHEYE; VANC1PLA9 IV
--- NOTE | 2021-02-05 23:00 | NUR ---
Patient male 85 y/o admitted from [facility] under the care of Dr. Santillan. Patient with medical diagnosis of acute respiratory failure,Tracheostomy,GT,pneumonia.History of hypertension,CAD,GERD,testicular cancer,BPH,depression,chronic metabolic encephalopathy,CVA with toxic metabolic encephalopathy. Patient is non verbal,open eyes,upper and lower extremities contracted,on cool aerosol 28% Fi02. GT patent on Jevity 1.2 55ml /hr x 20 hours.Kumar catheter connected to urinary bag with reddish urine color.Right upper midline patent and dressing intact.Head to toe assessment completed. Sacral scarring noted,left lateral DTI ,skin dryness.Treatment initiated as ordered. Wound consult ordered.Vital signs stable.Call light within reach.HOB elevated. Will continue to monitor.
[2021-02-06 00:33] VITALS: BP 113/73
--- NOTE | 2021-02-06 05:02 | NUR ---
PATIENT RECEIVED ON 28% AEROSOL T-TUBE, TOLERATING WITH NO DISTRESS/SOB NOTED. CONTINUE TO MONITOR AND AWAITING PENDING RESPIRATORY ORDERS. Addendum: 02/06/21 at 0504 by JKAI PASCAL RT Amended: Links added.
--- NOTE | 2021-02-06 06:27 | NUR ---
pt awake. calm. no s/s of distress noted. vital signs stable. all needs attended. . Call light within reach. HOB elevated. will endorse to oncoming shift.
[2021-02-06] MEDS ORDERED: JEVITY 1.2 CAL 1,000 ML BOTTLE GT PRN (07:00)
[2021-02-06] MEDS ORDERED: ENOXAPARIN SODIUM 40 MG/0.4 ML DISP.SYRIN SQ SCH (07:07)
[2021-02-06 07:21] VITALS: BP 132/72
[2021-02-06 07:35] LABS: CALCIUM, SERUM 9.2 mg/dL (8.5-10.1); CREATININE 0.7 mg/dL (0.6-1.3); POTASSIUM 4.5 mmol/L (3.5-5.1)
[2021-02-06] MEDS: IPRATROPIUM NEB FS 0.5 MG/2.5 ML AMPUL.NEB NEB SCH ×3 (07:35→20:21)
[2021-02-06] MEDS: ALBUTEROL FS 2.5 MG/0.5 ML VIAL.NEB NEB SCH ×3 (07:35→20:21)
[2021-02-06] MEDS ORDERED: NA PHOS,M-B/NA PHOS,DI-BA 1 EA ENEMA RC PRN (08:00)
[2021-02-06] MEDS: METOCLOPRAMIDE HCL 10 MG/10 ML UDC GT SCH ×3 (08:10→21:20)
[2021-02-06] MEDS ORDERED: AMLO10TA4 GT (08:58)
[2021-02-06] MEDS ORDERED: GENT40VI2 IM (08:58)
[2021-02-06] MEDS ORDERED: ENOX40DI SQ (08:58)
[2021-02-06] MEDS ORDERED: SOD62.5V IV (08:58)
[2021-02-06] MEDS ORDERED: METO-295 GT (08:58)
[2021-02-06] MEDS ORDERED: ONDA4TAB5 GT (08:58)
[2021-02-06] MEDS ORDERED: ALBU2.5V13 IH (08:58)
[2021-02-06] MEDS ORDERED: IPRA0.2S9 IH (08:58)
[2021-02-06] MEDS ORDERED: POTA20TA10 GT (08:58)
[2021-02-06] MEDS ORDERED: LATA2.5D2 OP (08:58)
[2021-02-06] MEDS ORDERED: FERROUS SULFATE UDC 300 MG/5 ML UDC GT SCH (09:00)
[2021-02-06] MEDS: BICALUTAMIDE 50 MG TABLET GT SCH (09:05)
[2021-02-06] MEDS: DOCUSATE SODIUM LIQ 100 MG/10 ML UDC GT SCH ×2 (09:05→16:00)
[2021-02-06] MEDS: TIMOLOL 0.5% SOLN OPHTH 5 ML BOTTLE EACHEYE SCH ×2 (09:05→16:00)
[2021-02-06] MEDS: LORATADINE 10 MG TABLET GT SCH (09:05)
[2021-02-06] MEDS: ASPIRIN 81 MG TAB.CHEW GT SCH (09:05)
[2021-02-06] MEDS: FOLIC ACID 1 MG TABLET GT SCH ×2 (09:06→09:26)
[2021-02-06] MEDS: AMLODIPINE BESYLATE 10 MG TABLET GT SCH (09:06)
[2021-02-06] MEDS: BACLOFEN (10 MG) 10 MG TABLET GT SCH (09:06)
[2021-02-06] MEDS: PANTOPRAZOLE 40 MG/PACK PACK GT SCH (09:07)
[2021-02-06] MEDS: LISINOPRIL (5MG) 5 MG TABLET GT SCH (09:07)
[2021-02-06] MEDS: NEOMY SULF/BACITRAC ZN/POLY 15 GM TUBE TP SCH ×2 (09:07→21:20)
[2021-02-06] MEDS: PYRIDOXINE HCL 50 MG TABLET GT SCH (09:07)
[2021-02-06] MEDS: VITAMINS A AND D 56.7 GM TUBE TP SCH (09:08)
[2021-02-06] MEDS: Z GUARD REMEDY 4 OZ OINT TP SCH ×4 (09:08→21:20)
[2021-02-06] MEDS: ZINC OXIDE 30 GM TUBE TP SCH ×2 (09:09→21:20)
--- NOTE | 2021-02-06 09:30 | NUR ---
Informed by Mendy RN that pt with open wound on trach site under right side of stoma, picture taken and put in chart. Cleansed with NS, pat dry and applied triple atb and covered with gauze. Will continue to monitor for any changes.
[2021-02-06] MEDS ORDERED: TUBERCULIN,PURIF.PROT.DERIV. 5 TU/0.1 ML VIAL ID SCH (13:00)
[2021-02-06] MEDS ORDERED: HYDROGEN PEROXIDE 480 ML BOTTLE TP PRN (13:00)
[2021-02-06] MEDS ORDERED: SOD FERRIC GLUC 125 MG in IV NS 0.9% 100 ML IV SCH (14:00)
[2021-02-06] MEDS: GENTAMICIN 80 MG in IV D5W 50 ML IV SCH (14:22)
--- NOTE | 2021-02-06 15:03 | NUR ---
Administered Tubersol intradermal to pt's right forearm, no adverse reaction noted, will reassess. Addendum: 02/06/21 at 1610 by ALENA MANZANO RN Plain Clothes Police Officer: Keren Lot#: [id number] Exp: 02/07/21
[2021-02-06] MEDS: FERROUS SULFATE - FOR SA ONLY 330 MG/7.5 ML UDC GT SCH (16:00)
--- NOTE | 2021-02-06 18:51 | NUR ---
Hematuria noted on indwelling andres catheter. No noted signs and symptoms of distress. Reported to charge nurse RN Tonya Borrego who reported to Dr. Santillan with order to hold Lovenox and will order for CBC tomorrow. Will endorse to incoming loop tender nurse to carry out MD orders and continue to monitor for bleeding.
[2021-02-06 20:22] VITALS: BP 97/61
[2021-02-06] MEDS: LATANOPROST EYE DROP 0.005% 2.5 ML BOTTLE EACHEYE SCH (21:20)
[2021-02-06] MEDS: ATORVASTATIN 40 MG TABLET GT SCH (21:20)
[2021-02-06] MEDS: BACI/NEOM/POLY B OINT PKT 1 UDPKT PACKET TP SCH (21:20)
[2021-02-07 00:22] VITALS: BP 107/77
[2021-02-07] MEDS: HYDROGEN PEROXIDE 480 ML BOTTLE TP SCH ×3 (01:58→20:27)
[2021-02-07] MEDS: ALBUTEROL FS 2.5 MG/0.5 ML VIAL.NEB NEB SCH ×4 (01:58→20:27)
[2021-02-07] MEDS: IPRATROPIUM NEB FS 0.5 MG/2.5 ML AMPUL.NEB NEB SCH ×4 (01:58→20:27)
[2021-02-07] MEDS: METOCLOPRAMIDE HCL 10 MG/10 ML UDC GT SCH ×3 (05:31→20:11)
[2021-02-07 07:35] LABS: CALCIUM, SERUM 9.3 mg/dL (8.5-10.1); CREATININE 0.7 mg/dL (0.6-1.3); POTASSIUM 4.7 mmol/L (3.5-5.1)
[2021-02-07 07:53] VITALS: BP_SYST 115; BP_SYST 96; BP_DIAS 48; BP_DIAS 50
--- NOTE | 2021-02-07 08:00 | NUR ---
Seen and examined by Dr. Santillan, no new order given.
[2021-02-07 08:25] LABS: BASOPHILS % (AUTO) 0.5 % (0.0-2.0); EOSINOPHILS % (AUTO) 3.4 % (0.0-6.0); HEMATOCRIT 30 % (39-51); HEMOGLOBIN 9.8 g/dL (13.5-17.5); LYMPHOCYTES # (AUTO) 1.1 K/uL (0.8-4.8); LYMPHOCYTES % (AUTO) 11.9 % (20.0-44.0); MEAN CORPUSCULAR HGB CONC 32 g/dl (31.0-36.0); MEAN CORPUSCULAR VOLUME 93 fL (80-96); MONOCYTES % (AUTO) 10.9 % (2.0-12.0); NEUTROPHILS # (AUTO) 6.9 K/uL (1.8-8.9); NEUTROPHILS % (AUTO) 73.3 % (43.0-81.0); PLATELET COUNT (AUTO) 409 K/uL (150-450); RED BLOOD CELL COUNT(AUTO) 3.24 MIL/uL (4.5-6.0); WHITE BLOOD COUNT (AUTO) 9.4 K/uL (4.3-11.0)
[2021-02-07] MEDS: AMLODIPINE BESYLATE 10 MG TABLET GT SCH (08:52)
[2021-02-07] MEDS: LISINOPRIL (5MG) 5 MG TABLET GT SCH (08:52)
[2021-02-07] MEDS: TIMOLOL 0.5% SOLN OPHTH 5 ML BOTTLE EACHEYE SCH ×2 (08:53→17:19)
[2021-02-07] MEDS: ASPIRIN 81 MG TAB.CHEW GT SCH (08:53)
[2021-02-07] MEDS: DOCUSATE SODIUM LIQ 100 MG/10 ML UDC GT SCH ×2 (08:54→17:19)
[2021-02-07] MEDS: BICALUTAMIDE 50 MG TABLET GT SCH (08:54)
[2021-02-07] MEDS: PANTOPRAZOLE 40 MG/PACK PACK GT SCH (08:55)
[2021-02-07] MEDS: BACLOFEN (10 MG) 10 MG TABLET GT SCH (08:55)
[2021-02-07] MEDS: FOLIC ACID 1 MG TABLET GT SCH (08:55)
[2021-02-07] MEDS: PYRIDOXINE HCL 50 MG TABLET GT SCH (08:55)
[2021-02-07] MEDS: FERROUS SULFATE - FOR SA ONLY 330 MG/7.5 ML UDC GT SCH ×2 (08:55→17:19)
[2021-02-07] MEDS ORDERED: POTASSIUM CHLORIDE 20 MEQ POWDER PACKET GT SCH (09:00)
--- NOTE | 2021-02-07 09:00 | NUR ---
Gentamicin trough relayed to [facility] pharmacist Srinath, continue Gentamicin dose and frequency.
[2021-02-07] MEDS: NEOMY SULF/BACITRAC ZN/POLY 15 GM TUBE TP SCH ×2 (09:16→20:11)
[2021-02-07] MEDS: Z GUARD REMEDY 4 OZ OINT TP SCH ×4 (09:16→20:11)
[2021-02-07] MEDS: BACI/NEOM/POLY B OINT PKT 1 UDPKT PACKET TP SCH ×2 (09:16→20:11)
[2021-02-07] MEDS: VITAMINS A AND D 56.7 GM TUBE TP SCH (09:17)
[2021-02-07] MEDS: ZINC OXIDE 30 GM TUBE TP SCH ×2 (09:17→20:11)
[2021-02-07] MEDS: GENTAMICIN 80 MG in IV D5W 50 ML IV SCH (09:30)
[2021-02-07] MEDS: LORATADINE 10 MG TABLET GT SCH (10:50)
[2021-02-07 11:48] VITALS: BP 128/69
--- NOTE | 2021-02-07 12:00 | NUR ---
Relayed CBC and BMP result to Dr. Santillan, no new order given.
[2021-02-07 19:58] VITALS: BP 104/75
[2021-02-07] MEDS: ATORVASTATIN 40 MG TABLET GT SCH (21:33)
[2021-02-07] MEDS: LATANOPROST EYE DROP 0.005% 2.5 ML BOTTLE EACHEYE SCH (21:33)
[2021-02-08] MEDS: JEVITY 1.2 CAL 1,000 ML BOTTLE GT PRN ×2 (00:34→23:52)
[2021-02-08 00:54] VITALS: BP 110/70
[2021-02-08] MEDS: GENTAMICIN 80 MG in IV D5W 50 ML IV SCH ×2 (01:40→20:26)
[2021-02-08] MEDS: IPRATROPIUM NEB FS 0.5 MG/2.5 ML AMPUL.NEB NEB SCH ×4 (02:18→19:48)
[2021-02-08] MEDS: ALBUTEROL FS 2.5 MG/0.5 ML VIAL.NEB NEB SCH ×4 (02:18→19:48)
[2021-02-08] MEDS: ONDANSETRON 4 MG TAB.RAPDIS GT PRN (02:25)
--- NOTE | 2021-02-08 02:30 | NUR ---
RT PT HAS PERSISTANT COUGH, HAS VOMITED AND SPO2 DROPPED TO 89%. FIO2 INCREASED TO 40% 10LPM, PT NOW HAS SPO2 OF 93-94%. MEDICAL TRANSCRIPTION RADIOLOGY AT BEDSIDE AND AWARE. TUBING AND MONTANO CHANGED BY RT. WILL CONTINUE TO MONITOR.
[2021-02-08] MEDS: METOCLOPRAMIDE HCL 10 MG/10 ML UDC GT SCH ×3 (05:04→20:35)
[2021-02-08 07:15] LABS: CALCIUM, SERUM 9.3 mg/dL (8.5-10.1); CREATININE 0.9 mg/dL (0.6-1.3); POTASSIUM 4.5 mmol/L (3.5-5.1)
[2021-02-08 07:31] VITALS: BP 97/42
[2021-02-08] MEDS: HYDROGEN PEROXIDE 480 ML BOTTLE TP SCH ×2 (07:55→20:26)
[2021-02-08 08:58] VITALS: BP 105/59
[2021-02-08] MEDS: TIMOLOL 0.5% SOLN OPHTH 5 ML BOTTLE EACHEYE SCH ×2 (09:00→17:56)
[2021-02-08] MEDS: AMLODIPINE BESYLATE 10 MG TABLET GT SCH (09:00)
[2021-02-08] MEDS: LISINOPRIL (5MG) 5 MG TABLET GT SCH (09:00)
[2021-02-08] MEDS: ASPIRIN 81 MG TAB.CHEW GT SCH (09:13)
[2021-02-08] MEDS: BICALUTAMIDE 50 MG TABLET GT SCH (09:13)
[2021-02-08] MEDS: LORATADINE 10 MG TABLET GT SCH (09:14)
[2021-02-08] MEDS: DOCUSATE SODIUM LIQ 100 MG/10 ML UDC GT SCH ×2 (09:14→17:56)
[2021-02-08] MEDS: BACLOFEN (10 MG) 10 MG TABLET GT SCH (09:15)
[2021-02-08] MEDS: FOLIC ACID 1 MG TABLET GT SCH (09:15)
[2021-02-08] MEDS: FERROUS SULFATE - FOR SA ONLY 330 MG/7.5 ML UDC GT SCH ×2 (09:15→17:56)
[2021-02-08] MEDS: PANTOPRAZOLE 40 MG/PACK PACK GT SCH (09:16)
[2021-02-08] MEDS: PYRIDOXINE HCL 50 MG TABLET GT SCH (09:17)
[2021-02-08] MEDS: NEOMY SULF/BACITRAC ZN/POLY 15 GM TUBE TP SCH ×2 (09:18→20:36)
[2021-02-08] MEDS: BACI/NEOM/POLY B OINT PKT 1 UDPKT PACKET TP SCH ×2 (09:18→20:36)
[2021-02-08] MEDS: Z GUARD REMEDY 4 OZ OINT TP SCH ×4 (09:18→20:36)
[2021-02-08] MEDS: VITAMINS A AND D 56.7 GM TUBE TP SCH (09:20)
[2021-02-08] MEDS: ZINC OXIDE 30 GM TUBE TP SCH ×2 (09:20→20:36)
[2021-02-08] MEDS: ACETAMINOPHEN 650 MG/20 ML UDC- SA PATIENTS-PAIN ONLY GT PRN (09:23)
--- NOTE | 2021-02-08 10:04 | NUR ---
Notified Dr Sullivan that pt was desaturating to 88% this morning, has copious amounts of secretions and was suctioned several times. RT Bravo administered a breathing treatment. O2 saturation improved to 95-96%. Pt on FiO2 40%. Dr Sullivan said to monitor. No new order.
--- NOTE | 2021-02-08 11:53 | NUR ---
Notified Dr Santillan that pt had a temp of 100.0 F this morning, temp 98.9 F at this time, HR ranging from 90s to low 100s. Dr Santillan ordered to give NS at 80 mL/hr IV x 2 L. Notified pt's sister Shae.
--- NOTE | 2021-02-08 12:15 | NUR ---
INTAKE PAPERWORK: The patient was admitted to on 02/05/2021. SW called the patients sister, Shae Jauregui [phone] who resides in [place] to obtain collateral information and review the patient's intake paperwork consisting of : (Patient Right's Acknowledgement, Documentation of Preferred Intensity of Care, Conditions of Admission, CDPH Agreement, Voluntary Prior Express Consent form, and An Important Message from Medicare). Shae expressed that the intensity of care provided to the pt. should include CPR and SUPPORTIVE CARE ONLY (NO HD). Shae was agreeable to reviewing intake paperwork with SW over the phone and providing a wet signature when paperwork arrives via mail. This SW addressed all of the familys questions. MAURICIO provided Shae emailed a copy of the Bill of Rights, [facility] visitation guidelines, and Conservatorship/Advanced Healthcare Directive informational packet by email [email or web address]. Cleaner Wall educated Shae on Advanced Health Care Directive and Conservatorship. Per Shae she is uncertain if the patient ever completed an Advanced Healthcare Directive. Shae stated she would notify MAURICIO if she becomes interested in filing for Conservatorship in the future. SW to mail the intake paperwork to Shae Jaren [[id number] [facility] [id number]]. MAURICIO provided Shae with pre-paid envelope. MAURICIO will await for paperwork to be completed and mailed back by Shae. SW will follow up as needed to assist the family with completing intake paperwork.
[2021-02-08] MEDS: IV NS 0.9% 1,000 ML IV SCH (12:30)
[2021-02-08 12:31] VITALS: BP 101/56
--- NOTE | 2021-02-08 16:13 | NUR ---
Spoke with pt's sister Shae and his wrapper caser Maciej Mathew regarding Covid and pneumococcal vaccines. According to them pt received the Covid vaccines but there is no record of him getting the pneumococcal vaccine. Maciej said she believes the pt has not received it yet. Asked Dr Sullivan if pt may have the pneumococcal vaccine and whether to give Prevnar [address] Sullivan said to give Pneumovax 23. Pt's sister Shae gave consent for it. Educated her regarding pneumococcal vaccine. Addendum: 02/09/21 at 1756 by NEW OSBORNE RN Asked Shae if she has a copy of pt's Covid vaccine record. She said to ask Maciej. Requested Maciej for a copy.
[2021-02-08 20:10] VITALS: BP 111/68
[2021-02-08] MEDS: LATANOPROST EYE DROP 0.005% 2.5 ML BOTTLE EACHEYE SCH (21:43)
[2021-02-08] MEDS: ATORVASTATIN 40 MG TABLET GT SCH (21:43)
[2021-02-09] MEDS: IV NS 0.9% 1,000 ML IV SCH (01:00)
[2021-02-09] MEDS: IPRATROPIUM NEB FS 0.5 MG/2.5 ML AMPUL.NEB NEB SCH ×6 (01:30→23:44)
[2021-02-09] MEDS: ALBUTEROL FS 2.5 MG/0.5 ML VIAL.NEB NEB SCH ×6 (01:30→23:44)
[2021-02-09 01:57] VITALS: BP 101/62
[2021-02-09] MEDS: METOCLOPRAMIDE HCL 10 MG/10 ML UDC GT SCH ×3 (05:35→21:07)
[2021-02-09 07:25] VITALS: BP 127/63
[2021-02-09] MEDS: HYDROGEN PEROXIDE 480 ML BOTTLE TP SCH ×2 (07:53→20:01)
[2021-02-09 08:10] LABS: CALCIUM, SERUM 9.1 mg/dL (8.5-10.1); CREATININE 0.7 mg/dL (0.6-1.3); POTASSIUM 5.1 mmol/L (3.5-5.1)
--- NOTE | 2021-02-09 08:21 | NUR ---
WOUND CARE CONSULT: PT SEEN FOR SKIN ASSESSMENT AND NOTED TO HAVE SACRAL AND BUTTOCK SCARRING, DISCOLORATION TO RT 5TH TOE, INTACT DEEP TISSUE INJURY/DISCOLORATION TO RT HEEL AND INTACT DEEP TISSUE INJURY/DISCOLORATION TO LEFT LATERAL ANKLE, ALL PRESENT ON ADMISSION. EXTREMITIES NOTED TO BE CONTRACTED, MAKING OFFLOADING DIFFICULT. RECOMMEND DPM CONSULT. DR SHABAZZ NOTIFIED OF CONSULT REQUEST. PT IS ON FIRST STEP CIRRUS LOW AIRLOSS MATTRESS. ALL SKIN PROTECTION RECOMMENDATIONS DISCUSSED WITH NURSING STAFF. MD IN AGREEMENT WITH PLAN OF CARE.
[2021-02-09] MEDS: TIMOLOL 0.5% SOLN OPHTH 5 ML BOTTLE EACHEYE SCH ×2 (08:28→16:37)
[2021-02-09] MEDS: BICALUTAMIDE 50 MG TABLET GT SCH (08:28)
[2021-02-09] MEDS: ASPIRIN 81 MG TAB.CHEW GT SCH (08:28)
[2021-02-09] MEDS: LORATADINE 10 MG TABLET GT SCH (08:29)
[2021-02-09] MEDS: FERROUS SULFATE - FOR SA ONLY 330 MG/7.5 ML UDC GT SCH ×2 (08:29→16:37)
[2021-02-09] MEDS: DOCUSATE SODIUM LIQ 100 MG/10 ML UDC GT SCH ×2 (08:29→16:37)
[2021-02-09] MEDS: AMLODIPINE BESYLATE 10 MG TABLET GT SCH (08:30)
[2021-02-09] MEDS: BACLOFEN (10 MG) 10 MG TABLET GT SCH (08:30)
[2021-02-09] MEDS: PYRIDOXINE HCL 50 MG TABLET GT SCH (08:30)
[2021-02-09] MEDS: LISINOPRIL (5MG) 5 MG TABLET GT SCH (08:30)
[2021-02-09] MEDS: FOLIC ACID 1 MG TABLET GT SCH (08:30)
[2021-02-09] MEDS: PANTOPRAZOLE 40 MG/PACK PACK GT SCH (08:30)
[2021-02-09] MEDS: NEOMY SULF/BACITRAC ZN/POLY 15 GM TUBE TP SCH ×2 (08:44→21:07)
[2021-02-09] MEDS: BACI/NEOM/POLY B OINT PKT 1 UDPKT PACKET TP SCH ×2 (08:45→21:07)
[2021-02-09] MEDS: VITAMINS A AND D 56.7 GM TUBE TP SCH (08:45)
[2021-02-09] MEDS: ZINC OXIDE 30 GM TUBE TP SCH ×2 (08:45→21:08)
[2021-02-09] MEDS: Z GUARD REMEDY 4 OZ OINT TP SCH ×4 (08:45→21:07)
[2021-02-09] MEDS: ONDANSETRON 4 MG TAB.RAPDIS GT PRN (11:47)
[2021-02-09 12:58] VITALS: BP 136/76
--- NOTE | 2021-02-09 13:03 | NUR ---
Notified Dr Santillan that pt has a temp of 101.8 F and pt vomited twice today. Feeding being held. Tylenol and Zofran were administered. Dr Santillan ordered to hold feedings, do STAT CBC, BMP, blood cultures x 2, CXR. Notified pt's sister.
--- NOTE | 2021-02-09 13:05 | NUR ---
Late entry for 02/08/21 Pt's midline catheter was found out. No bleeding noted. Catheter tip intact. Notified Dr Santillan.
--- NOTE | 2021-02-09 13:25 | NUR ---
Pt's sister said that pt's feeding were being held when he was in [place] because he was not digesting his food. She said pt is able to tolerate feeding rate at 50 mL/hr only. Pt's feeding rate was recently increased from 55 to 75 mL/hr. Notified Dr Santillan and also discussed it with REGINE Glze. She said to hold feeding for now as ordered by Dr Santillan then restart feeding at 55 mL/hr only.
--- NOTE | 2021-02-09 13:55 | NUR ---
Seen by Dr Kayla Espinosa. She ordered to apply Mepilex foam dressing on the right heel and left ankle DTI, offload them and also to apply heel protectors. Showed her the available heel protectors and she said those are fine.
--- NOTE | 2021-02-09 14:15 | NUR ---
Received order from ANGELLA Zazueta to DC Gentamicin, start Cefepime and Vancomycin. Informed pt's sister. Addendum: 02/09/21 at 1914 by NEW OSBORNE RN T 99.8 F upon rechecking.
[2021-02-09 14:17] LABS: BASOPHILS % (AUTO) 0.6 % (0.0-2.0); EOSINOPHILS % (AUTO) 6.9 % (0.0-6.0); HEMATOCRIT 30 % (39-51); HEMOGLOBIN 9.6 g/dL (13.5-17.5); LYMPHOCYTES # (AUTO) 0.5 K/uL (0.8-4.8); LYMPHOCYTES % (AUTO) 7.1 % (20.0-44.0); MEAN CORPUSCULAR HGB CONC 32 g/dl (31.0-36.0); MEAN CORPUSCULAR VOLUME 94 fL (80-96); MONOCYTES # (AUTO) 0.5 K/uL (0.1-1.30); MONOCYTES % (AUTO) 7.7 % (2.0-12.0); NEUTROPHILS # (AUTO) 5.1 K/uL (1.8-8.9); NEUTROPHILS % (AUTO) 77.7 % (43.0-81.0); PLATELET COUNT (AUTO) 378 K/uL (150-450); RED BLOOD CELL COUNT(AUTO) 3.13 MIL/uL (4.5-6.0); WHITE BLOOD COUNT (AUTO) 6.6 K/uL (4.3-11.0)
--- NOTE | 2021-02-09 14:40 | NUR ---
Kumar catheter #16 was changed per Jailyn, and urine culture was collected.
[2021-02-09] MEDS: CEFEPIME 2 GM in IV D5W 100 ML IV SCH (15:00)
--- NOTE | 2021-02-09 15:21 | NUR ---
MAURICIO emailed pneumonia vaccine informational packet to pt.'s sister, Shae Jauregui [phone] at [email or web address]. Shae notified over the phone and she expressed understanding.
[2021-02-09] MEDS: VANCOMYCIN 1 GM in IV D5W 250ml IV SCH (16:00)
--- NOTE | 2021-02-09 17:10 | NUR ---
Notified Dr Sullivan that pt had a CXR done today due to fever. Relayed CXR result to him and informed him that Gentamicin was DC'd, pt now on Cefepime and Vancomycin. No new order from Dr Sullivan. Notified Dr Santillan that pt's feeding of Jevity 1.2 was restarted at 55 mL/hr. No new order.
[2021-02-09] MEDS: JEVITY 1.2 CAL 1,000 ML BOTTLE GT PRN (18:11)
[2021-02-09 20:29] VITALS: BP 134/90
[2021-02-09] MEDS: ACETAMINOPHEN 650 MG/20 ML UDC- SA PATIENTS-FEVER ONLY GT PRN (21:08)
[2021-02-09] MEDS: LATANOPROST EYE DROP 0.005% 2.5 ML BOTTLE EACHEYE SCH (21:08)
[2021-02-09] MEDS: ATORVASTATIN 40 MG TABLET GT SCH (21:08)
[2021-02-10 02:51] VITALS: BP 144/59
[2021-02-10] MEDS: VANCOMYCIN 1 GM in IV D5W 250ml IV SCH ×2 (03:20→15:04)
[2021-02-10] MEDS: IPRATROPIUM NEB FS 0.5 MG/2.5 ML AMPUL.NEB NEB SCH ×6 (03:30→23:08)
[2021-02-10] MEDS: ALBUTEROL FS 2.5 MG/0.5 ML VIAL.NEB NEB SCH ×6 (03:30→23:08)
[2021-02-10] MEDS: METOCLOPRAMIDE HCL 10 MG/10 ML UDC GT SCH ×3 (05:21→21:37)
[2021-02-10 07:32] VITALS: BP 96/53
[2021-02-10 07:33] LABS: CALCIUM, SERUM 8.7 mg/dL (8.5-10.1); CREATININE 0.8 mg/dL (0.6-1.3); POTASSIUM 4.5 mmol/L (3.5-5.1)
[2021-02-10] MEDS: HYDROGEN PEROXIDE 480 ML BOTTLE TP SCH ×2 (08:56→19:46)
[2021-02-10] MEDS: VITAMINS A AND D 56.7 GM TUBE TP SCH (09:18)
[2021-02-10] MEDS: ZINC OXIDE 30 GM TUBE TP SCH ×2 (09:18→21:38)
[2021-02-10] MEDS: Z GUARD REMEDY 4 OZ OINT TP SCH ×4 (09:18→21:38)
[2021-02-10] MEDS: NEOMY SULF/BACITRAC ZN/POLY 15 GM TUBE TP SCH ×2 (09:19→21:37)
[2021-02-10] MEDS: BACI/NEOM/POLY B OINT PKT 1 UDPKT PACKET TP SCH ×2 (09:19→21:37)
[2021-02-10] MEDS: LISINOPRIL (5MG) 5 MG TABLET GT SCH (09:20)
[2021-02-10] MEDS: LORATADINE 10 MG TABLET GT SCH (09:20)
[2021-02-10] MEDS: PANTOPRAZOLE 40 MG/PACK PACK GT SCH (09:20)
[2021-02-10] MEDS: FOLIC ACID 1 MG TABLET GT SCH (09:20)
[2021-02-10] MEDS: BACLOFEN (10 MG) 10 MG TABLET GT SCH (09:20)
[2021-02-10] MEDS: BICALUTAMIDE 50 MG TABLET GT SCH (09:20)
[2021-02-10] MEDS: AMLODIPINE BESYLATE 10 MG TABLET GT SCH (09:20)
[2021-02-10] MEDS: PYRIDOXINE HCL 50 MG TABLET GT SCH (09:20)
[2021-02-10] MEDS: TIMOLOL 0.5% SOLN OPHTH 5 ML BOTTLE EACHEYE SCH ×2 (09:21→16:04)
[2021-02-10] MEDS: ASPIRIN 81 MG TAB.CHEW GT SCH (09:22)
[2021-02-10] MEDS: DOCUSATE SODIUM LIQ 100 MG/10 ML UDC GT SCH ×2 (09:23→16:07)
[2021-02-10] MEDS: FERROUS SULFATE - FOR SA ONLY 330 MG/7.5 ML UDC GT SCH ×2 (09:24→16:07)
--- NOTE | 2021-02-10 10:50 | NUR ---
SS Note: SW mailed admission paperwork to pt.'s sister, Shae Jauregui at [[id number] [facility] [address]]. SW will be available to assist family with completing paperwork.
[2021-02-10 13:18] VITALS: BP 102/58
[2021-02-10] MEDS: CEFEPIME 2 GM in IV D5W 100 ML IV SCH (14:01)
--- NOTE | 2021-02-10 14:15 | NUR ---
MAURICIO emailed authorization for disclosure of health information to Shae at [email or web address] for her to sign and complete. Medical records to e requested from pt.'s PCP:Wily [phone] at [facility].
[2021-02-10] MEDS: JEVITY 1.2 CAL 1,000 ML BOTTLE GT PRN (18:10)
[2021-02-10 20:06] VITALS: BP 104/61
[2021-02-10] MEDS: LATANOPROST EYE DROP 0.005% 2.5 ML BOTTLE EACHEYE SCH (21:38)
[2021-02-10] MEDS: ATORVASTATIN 40 MG TABLET GT SCH (21:38)
[2021-02-10] MEDS: ACETAMINOPHEN 650 MG/20 ML UDC- SA PATIENTS-PAIN ONLY GT PRN (21:39)
[2021-02-11 02:19] VITALS: BP 110/68
[2021-02-11] MEDS: ALBUTEROL FS 2.5 MG/0.5 ML VIAL.NEB NEB SCH ×6 (02:41→22:44)
[2021-02-11] MEDS: IPRATROPIUM NEB FS 0.5 MG/2.5 ML AMPUL.NEB NEB SCH ×6 (02:41→22:44)
[2021-02-11 03:15] LABS: CALCIUM, SERUM 8.7 mg/dL (8.5-10.1); CREATININE 0.8 mg/dL (0.6-1.3); POTASSIUM 3.9 mmol/L (3.5-5.1)
[2021-02-11] MEDS: VANCOMYCIN 1 GM in IV D5W 250ml IV SCH ×3 (04:00→16:00)
[2021-02-11] MEDS: METOCLOPRAMIDE HCL 10 MG/10 ML UDC GT SCH ×3 (05:29→21:08)
[2021-02-11 07:20] VITALS: BP 104/56
[2021-02-11] MEDS: HYDROGEN PEROXIDE 480 ML BOTTLE TP SCH ×2 (08:21→19:45)
[2021-02-11] MEDS: TIMOLOL 0.5% SOLN OPHTH 5 ML BOTTLE EACHEYE SCH ×2 (08:31→16:47)
[2021-02-11] MEDS: FERROUS SULFATE - FOR SA ONLY 330 MG/7.5 ML UDC GT SCH ×2 (08:31→16:47)
[2021-02-11] MEDS: BACLOFEN (10 MG) 10 MG TABLET GT SCH (08:31)
[2021-02-11] MEDS: ASPIRIN 81 MG TAB.CHEW GT SCH (08:31)
[2021-02-11] MEDS: AMLODIPINE BESYLATE 10 MG TABLET GT SCH (08:31)
[2021-02-11] MEDS: LORATADINE 10 MG TABLET GT SCH (08:31)
[2021-02-11] MEDS: FOLIC ACID 1 MG TABLET GT SCH (08:31)
[2021-02-11] MEDS: DOCUSATE SODIUM LIQ 100 MG/10 ML UDC GT SCH ×2 (08:31→16:47)
[2021-02-11] MEDS: BICALUTAMIDE 50 MG TABLET GT SCH (08:31)
[2021-02-11] MEDS: PYRIDOXINE HCL 50 MG TABLET GT SCH (08:32)
[2021-02-11] MEDS: LISINOPRIL (5MG) 5 MG TABLET GT SCH (08:32)
[2021-02-11] MEDS: PANTOPRAZOLE 40 MG/PACK PACK GT SCH (08:32)
[2021-02-11] MEDS: ZINC OXIDE 30 GM TUBE TP SCH ×2 (09:46→21:09)
[2021-02-11] MEDS: VITAMINS A AND D 56.7 GM TUBE TP SCH (09:46)
[2021-02-11] MEDS: NEOMY SULF/BACITRAC ZN/POLY 15 GM TUBE TP SCH ×2 (09:46→21:08)
[2021-02-11] MEDS: BACI/NEOM/POLY B OINT PKT 1 UDPKT PACKET TP SCH ×2 (09:46→21:08)
[2021-02-11] MEDS: Z GUARD REMEDY 4 OZ OINT TP SCH ×4 (09:46→21:09)
--- NOTE | 2021-02-11 10:45 | NUR ---
Pt's caregiver Vicki Nascimento came. Her T 96.6 F, she has no Covid symptoms. She performed hand hygiene and changed her face mask. Addendum: 02/11/21 at 1737 by NEW OSBORNE RN Educated Vicki regarding Covid protocols, proper handwashing, and donning and doffing PPEs.
--- NOTE | 2021-02-11 11:05 | NUR ---
Received order to change Vancomycin 1 gm IV q 12 to q 18.
--- NOTE | 2021-02-11 11:27 | NUR ---
Asked SPA ASSOCIATE Xenia Zazueta if pt should be on isolation for Pseudomonas aeruginosa in the sputum (01/31/21 result). ANGELLA Zazueta said there is no need for pt to be on isolation.
[2021-02-11] MEDS: ONDANSETRON 4 MG TAB.RAPDIS GT PRN (11:46)
[2021-02-11 13:51] VITALS: BP 97/54
--- NOTE | 2021-02-11 14:12 | NUR ---
IDT Family Invitation: SW emailed pt.'s sister, Shae Jauregui at [email or web address] to invite her to participate in IDT meeting 02/12/2021. However, Family and agreeable that case resolution specialist, Maciej Mathew [phone] be present in this meeting since she has some questions abut pt.'s length of stay at this facility.MAURICIO will follow up and call Maciej for Participation in meeting.
[2021-02-11] MEDS: CEFEPIME 2 GM in IV D5W 100 ML IV SCH (15:00)
--- NOTE | 2021-02-11 15:30 | NUR ---
Seen by CASH MANAGEMENT ASSOCIATE Jennifer Porras. She said to wait for pt to complete antibiotics before giving the pneumococcal vaccine.
[2021-02-11] MEDS: JEVITY 1.2 CAL 1,000 ML BOTTLE GT PRN (16:47)
--- NOTE | 2021-02-11 17:32 | NUR ---
Covid vaccine record received from his director of casework Maciej. Pt received the [employer] Covid vaccine on 09/03/20 and 09/24/20.
--- NOTE | 2021-02-11 18:15 | NUR ---
Received order from ANGELLA Zazueta to give Cefepime and Vancomycin for a total of 7 days.
[2021-02-11 19:16] VITALS: BP 107/51
[2021-02-11] MEDS: LATANOPROST EYE DROP 0.005% 2.5 ML BOTTLE EACHEYE SCH (21:09)
[2021-02-11] MEDS: ATORVASTATIN 40 MG TABLET GT SCH (21:09)
[2021-02-11] MEDS: ACETAMINOPHEN 650 MG/20 ML UDC- SA PATIENTS-PAIN ONLY GT PRN (22:16)
[2021-02-11 23:00] VITALS: BP 110/52
[2021-02-12 00:15] VITALS: BP 121/74
[2021-02-12] MEDS: ALBUTEROL FS 2.5 MG/0.5 ML VIAL.NEB NEB SCH ×4 (02:33→23:41)
[2021-02-12] MEDS: IPRATROPIUM NEB FS 0.5 MG/2.5 ML AMPUL.NEB NEB SCH ×4 (02:33→23:41)
[2021-02-12] MEDS: METOCLOPRAMIDE HCL 10 MG/10 ML UDC GT SCH ×3 (04:40→21:12)
--- NOTE | 2021-02-12 05:36 | NUR ---
RECEIVED PATIENT ON COOL AEROSOL AT FIO2 40%. WILL CONT TO MONITOR PATIENT. Addendum: 02/12/21 at 0537 by KELLEY NASCIMENTO RT Amended: Links added.
[2021-02-12] MEDS: MAGNESIUM HYDROXIDE 30 ML UDC GT PRN (06:04)
--- NOTE | 2021-02-12 06:30 | NUR ---
Patient didn't sleep most of the night,with large amount of secretions,coughing frequent suctioning needed.Will continue to monitor and will endorse.
--- NOTE | 2021-02-12 06:55 | NUR ---
Patient had episodes of increased temp last night 102.0 Tylenol given and cooling measures provided. No respiratory distress noted but a lot of secretions thick yellow,frequent suctioning needed. Remains on 40% fi02.Episodes of erratic HR from low 50's and will go up to 120's. Day shift yesterday reported also having this episodes. Will continue to monitor and will endorse to oncoming shift.
[2021-02-12 07:04] LABS: CALCIUM, SERUM 9.1 mg/dL (8.5-10.1); CREATININE 0.9 mg/dL (0.6-1.3); POTASSIUM 4.2 mmol/L (3.5-5.1)
[2021-02-12 08:10] VITALS: BP 132/87
[2021-02-12] MEDS: HYDROGEN PEROXIDE 480 ML BOTTLE TP SCH ×2 (08:27→20:44)
[2021-02-12] MEDS: FOLIC ACID 1 MG TABLET GT SCH (09:05)
[2021-02-12] MEDS: TIMOLOL 0.5% SOLN OPHTH 5 ML BOTTLE EACHEYE SCH ×2 (09:05→16:53)
[2021-02-12] MEDS: ASPIRIN 81 MG TAB.CHEW GT SCH (09:05)
[2021-02-12] MEDS: BACLOFEN (10 MG) 10 MG TABLET GT SCH (09:05)
[2021-02-12] MEDS: DOCUSATE SODIUM LIQ 100 MG/10 ML UDC GT SCH ×2 (09:05→16:53)
[2021-02-12] MEDS: FERROUS SULFATE - FOR SA ONLY 330 MG/7.5 ML UDC GT SCH ×2 (09:05→16:56)
[2021-02-12] MEDS: BICALUTAMIDE 50 MG TABLET GT SCH (09:05)
[2021-02-12] MEDS: LORATADINE 10 MG TABLET GT SCH (09:05)
[2021-02-12] MEDS: AMLODIPINE BESYLATE 10 MG TABLET GT SCH (09:06)
[2021-02-12] MEDS: PYRIDOXINE HCL 50 MG TABLET GT SCH (09:07)
[2021-02-12] MEDS: NEOMY SULF/BACITRAC ZN/POLY 15 GM TUBE TP SCH ×2 (09:07→21:13)
[2021-02-12] MEDS: PANTOPRAZOLE 40 MG/PACK PACK GT SCH (09:07)
[2021-02-12] MEDS: LISINOPRIL (5MG) 5 MG TABLET GT SCH (09:07)
[2021-02-12] MEDS: ZINC OXIDE 30 GM TUBE TP SCH ×2 (09:08→21:13)
[2021-02-12] MEDS: VITAMINS A AND D 56.7 GM TUBE TP SCH (09:08)
[2021-02-12] MEDS: BACI/NEOM/POLY B OINT PKT 1 UDPKT PACKET TP SCH ×2 (09:08→21:13)
[2021-02-12] MEDS: Z GUARD REMEDY 4 OZ OINT TP SCH ×4 (09:08→21:13)
[2021-02-12] MEDS: VANCOMYCIN 1 GM in IV D5W 250ml IV SCH (10:19)
--- NOTE | 2021-02-12 11:03 | NUR ---
Facility Update: notified family via [employer] that, " Facility Update: No [facility] Sub-Acute residents or employees tested positive for COVID-19 this week. [facility] continues to test Sub-Acute residents & healthcare personnel as recommended by [facility]. [facility] continues to follow infection control protocols and screen our residents and staff daily for symptoms".
--- NOTE | 2021-02-12 14:39 | NUR ---
MAURICIO received pt.'s medication list from Maciej Mathew, Men'S Locker Room Attendant office: ext. [phone] [employer]. MAURICIO printed and will provide to charge nurse.
--- NOTE | 2021-02-12 14:39 | NUR ---
INTERDISCIPLINARY PLAN OF CARE CONFERENCE took place today. The patients [employer] Master Plumber participated in the meeting via phone conference. Dr. Sullivan and Interdisciplinary team discussed the plan of care in detail. Current orders as well as treatments and medications were reviewed. See other disciplines IDT notes for further details.
[2021-02-12] MEDS: CEFEPIME 2 GM in IV D5W 100 ML IV SCH (15:59)
[2021-02-12] MEDS: PROSTAT (PYXIS) 30 ML UDC GT SCH ×2 (17:15→23:46)
--- NOTE | 2021-02-12 18:25 | NUR ---
Notified Dr. Santillan that patient's HR has been very erratic, at time above 120 and in a couple of minutes it will go down to below 65. Dr. Santillan also informed that according patient's caregiver and rn case manager, patient is taking sleeping medication Melatonin 3mg. alternating with Temazepam 15 mg. sleepign medication order, gave an order to do EKG, added Magnesium level to blood draw this morning and ask Dr. Cartagena, groundskeeper porter to see patient in AM. Order carried out.
--- NOTE | 2021-02-12 18:50 | NUR ---
Spoke with resident's sister Shae, updated family of what was discussed in IDT meeting, new orders and current condition of patient including interventions and medications. Obtained consent for the administration of Temazepam witnessed by two licensed nurses. Shae acknowledged that she is aware of this medication that her brother is taking for his sleep. Appreciated the call.
[2021-02-12] MEDS ORDERED: TEMAZEPAM 15 MG CAPSULE GT PRN (19:00)
[2021-02-12] MEDS ORDERED: MELATONIN 3 MG TABLET GT PRN (19:00)
--- NOTE | 2021-02-12 19:00 | NUR ---
Relayed EKG result to Dr. Santillan, patient is not on any IVF at this time. Awaiting for response from MD. Luis
[2021-02-12 19:19] VITALS: BP 110/73
[2021-02-12] MEDS ORDERED: ENOXAPARIN SODIUM 40 MG/0.4 ML DISP.SYRIN SQ SCH (21:00)
[2021-02-12] MEDS: ATORVASTATIN 40 MG TABLET GT SCH (21:13)
[2021-02-12] MEDS: LATANOPROST EYE DROP 0.005% 2.5 ML BOTTLE EACHEYE SCH (21:13)
[2021-02-12] MEDS: JEVITY 1.2 CAL 1,000 ML BOTTLE GT PRN (21:13)
[2021-02-12] MEDS: ACETAMINOPHEN 650 MG/20 ML UDC- SA PATIENTS-PAIN ONLY GT PRN (22:40)
--- NOTE | 2021-02-12 22:40 | NUR ---
Pt remains awake-Melatonin given 1 hr ago, also noted with episode of restlessness and increased HR 140's temp checked noted Temp:98.8 axillary also noted with some facial grimacing PRN Tylenol for discomfort given and repositioned pt for comfort. Suctioned pt with large amnt frothy secretions. Will closely monitor.
[2021-02-12 22:50] VITALS: BP 147/51
--- NOTE | 2021-02-12 22:52 | NUR ---
Called Rt @ BS pt with episode of desaturation 89-90% @ 40 % Fi02, pt remains awake VS: 98.8 Temp, BP 147-51 hr 148 rr 30, RN to notify .
--- NOTE | 2021-02-12 23:00 | NUR ---
Left message to DR. Sullivan regarding patient SANDY,desaturation.Awaiting for reply.
--- NOTE | 2021-02-12 23:10 | NUR ---
score caller [facility] Luann Jules notified of SANDY, increased HR to 140's and desaturations.Ordered to placed patient on mechanical vent AC 14 ,TV 500,Peep +5 Fi02 40%,NS bolus 500 ml then 80 ml/hr for hydration until further order.CBC,BMP,CXR in AM. Will carry out orders. Will monitor closely.
--- NOTE | 2021-02-12 23:22 | NUR ---
2321: Attempted to call pt's sister Shae Jauregui P: [phone]- but no answer, VM left to CB [facility] Sub-Acute in regards to Mr. De La Fuente's change of condition, CB # provided @ .
--- NOTE | 2021-02-12 23:26 | NUR ---
Rcvd call back from Shae Nolasco/ Pt's sister- updated her with pt's c.o.c informed of pt's episode of desaturation and increased HR without fever , also made aware that MD was notified and we rcvd order to place pt on ventilator for now, and to give IV fluid bolus, and labs in am- sister verbalized understanding and appreciative with the call and updated.
[2021-02-13] MEDS: IV NS 0.9% 1,000 ML IV PRN ×2 (00:06→09:00)
[2021-02-13 00:10] VITALS: BP 116/69
--- NOTE | 2021-02-13 00:15 | NUR ---
Received order fro Dr. Sullivan to place patient on mechanical vent AC 14,TV 550,Fi02 50%,Peep +5 and transfer to ICU if not better.Updated Dr. Sullivan patient was place on vent 35 minutes ago and patient HR 125,O2 sats 94-95% on Fi02 of 60%,BP 116/69.Patient given bolus NS 500ml and 80 ml/hr for hydration. follow up labs in AM. Will monitor patient closely.
--- NOTE | 2021-02-13 00:20 | NUR ---
RT AT 2310 TAX SERVICES SPECIALISTROSALINDA SNYDER PT WAS O2 WAS DESATURING WHILE ON 40% FIO2 10 LPM. FIO2 INCREASED, RECVD ORDERS TO PLACE PT ON VENT FROM RICHARD PERALES WITH THE FOLLOWNG SETTINGS: AC, RT 14, VT 500, PEEP +5 60% FIO2. PT PLACED ON LTV VENT PLUGGED INTO RED OUTLET WITH ALARMS ON AND AUDIBLE. TRACH CUFF INFLATED AND CONTINUED TO MONITOR PT. AT 0016, PER TAX SERVICES SPECIALIST, DR GREENE CHANGED VT SETTING TO 550 AND FIO2 TO 50%. VT AND FIO2 SETTINGS CHANGED, PT WOULD DESAT TO 88% ON 50% FIO2, PER DR. GREENE OKAY TO KEEP PT AT 60%. WILL CONTINUE TO MONITOR.
--- NOTE | 2021-02-13 01:47 | NUR ---
Right hand IV line infiltrated,removed,warm compress applied. Tried to put PIV x 3 unable to insert,hard stick. ICU nurse managed to insert gauge #18 to right external jugular,good blood return,secured with dressing. Patient tolerated procedure. Re started hydration NS 80 ml/hr.
[2021-02-13] MEDS: IPRATROPIUM NEB FS 0.5 MG/2.5 ML AMPUL.NEB NEB SCH ×3 (03:36→12:16)
[2021-02-13] MEDS: ALBUTEROL FS 2.5 MG/0.5 ML VIAL.NEB NEB SCH ×3 (03:36→12:16)
[2021-02-13] MEDS: VANCOMYCIN 1 GM in IV D5W 250ml IV SCH (04:11)
[2021-02-13 04:15] VITALS: BP 106/59
--- NOTE | 2021-02-13 04:17 | NUR ---
Patient awake, temp 99.2,HR 114,BP 106/59 O2 sats 93-94%.
[2021-02-13 05:10] LABS: BILIRUBIN,URINE NEGATIVE (NEGATIVE); COLOR,URINE YELLOW (YELLOW); LEUKOCYTE ESTERASE ,URINE TRACE (NEGATIVE); NITRITE, URINE NEGATIVE (NEGATIVE); PROTEIN,URINE TRACE mg/dl (NEGATIVE); UGLUCOSE NEGATIVE (NEGATIVE); UROBILINOGEN,URINE 0.2 EU/dL (0.2)
[2021-02-13] MEDS: METOCLOPRAMIDE HCL 10 MG/10 ML UDC GT SCH ×2 (05:12→12:16)
[2021-02-13] MEDS: BISACODYL SUPP (10 MG) 10 MG/SUPP.RECT SUPP.RECT RC PRN (05:12)
[2021-02-13] MEDS: PROSTAT (PYXIS) 30 ML UDC GT SCH ×2 (05:12→12:16)
[2021-02-13 05:30] LABS: BACTERIA,URINE None seen /HPF (None Seen)
[2021-02-13 05:31] LABS: SQUAMOUS EPITHELIAL CELL,UR Rare /HPF (None Seen); YEAST,URINE Moderate /HPF (None Seen)
[2021-02-13 05:32] LABS: COARSE GRANULAR CASTS,URINE Few /LPF (None Seen); FINE GRANULAR CASTS,URINE Rare /LPF (None Seen); MUCUS,URINE Rare /LPF (None Seen); URINE AMORPHOUS PHOSPHATES Rare /HPF (None Seen)
--- NOTE | 2021-02-13 06:58 | NUR ---
Patient calm O2 sats 95% HR 85 to 118.Still on IV hydration 80 ml/hr.endorsed to oncoming shift.
[2021-02-13 07:09] LABS: BASOPHILS % (AUTO) 0.4 % (0.0-2.0); EOSINOPHILS % (AUTO) 0.5 % (0.0-6.0); HEMATOCRIT 27 % (39-51); HEMOGLOBIN 8.9 g/dL (13.5-17.5); LYMPHOCYTES # (AUTO) 0.6 K/uL (0.8-4.8); LYMPHOCYTES % (AUTO) 10.3 % (20.0-44.0); MEAN CORPUSCULAR HGB CONC 33 g/dl (31.0-36.0); MEAN CORPUSCULAR VOLUME 93 fL (80-96); MONOCYTES # (AUTO) 0.4 K/uL (0.1-1.30); MONOCYTES % (AUTO) 6.2 % (2.0-12.0); NEUTROPHILS % (AUTO) 82.6 % (43.0-81.0); PLATELET COUNT (AUTO) 390 K/uL (150-450); RED BLOOD CELL COUNT(AUTO) 2.91 MIL/uL (4.5-6.0)
[2021-02-13 07:11] VITALS: BP 115/54
[2021-02-13 07:36] LABS: CALCIUM, SERUM 8.8 mg/dL (8.5-10.1); POTASSIUM 4.6 mmol/L (3.5-5.1)
[2021-02-13] MEDS: HYDROGEN PEROXIDE 480 ML BOTTLE TP SCH (08:47)
[2021-02-13] MEDS: NEOMY SULF/BACITRAC ZN/POLY 15 GM TUBE TP SCH (09:00)
[2021-02-13] MEDS: FERROUS SULFATE - FOR SA ONLY 330 MG/7.5 ML UDC GT SCH (09:13)
[2021-02-13] MEDS: PYRIDOXINE HCL 50 MG TABLET GT SCH (09:13)
[2021-02-13] MEDS: FOLIC ACID 1 MG TABLET GT SCH (09:13)
[2021-02-13] MEDS: TIMOLOL 0.5% SOLN OPHTH 5 ML BOTTLE EACHEYE SCH (09:13)
[2021-02-13] MEDS: BICALUTAMIDE 50 MG TABLET GT SCH (09:13)
[2021-02-13] MEDS: AMLODIPINE BESYLATE 10 MG TABLET GT SCH (09:13)
[2021-02-13] MEDS: LORATADINE 10 MG TABLET GT SCH (09:13)
[2021-02-13] MEDS: PANTOPRAZOLE 40 MG/PACK PACK GT SCH (09:13)
[2021-02-13] MEDS: BACLOFEN (10 MG) 10 MG TABLET GT SCH (09:13)
[2021-02-13] MEDS: LISINOPRIL (5MG) 5 MG TABLET GT SCH (09:13)
[2021-02-13] MEDS: DOCUSATE SODIUM LIQ 100 MG/10 ML UDC GT SCH (09:13)
[2021-02-13] MEDS: ASPIRIN 81 MG TAB.CHEW GT SCH (09:13)
[2021-02-13] MEDS: VITAMINS A AND D 56.7 GM TUBE TP SCH (09:14)
[2021-02-13] MEDS: ZINC OXIDE 30 GM TUBE TP SCH (09:14)
[2021-02-13] MEDS: BACI/NEOM/POLY B OINT PKT 1 UDPKT PACKET TP SCH (09:14)
[2021-02-13] MEDS: Z GUARD REMEDY 4 OZ OINT TP SCH ×2 (09:14)
--- NOTE | 2021-02-13 09:45 | NUR ---
Updated Dr. Santillan of patient's condition. Resident was placed on ventilator last night due to episode of desaturation 87-89%, persistent elevated HR >140 and RR 30. Relayed CBC, BMP, UA chest X ray results and asked for midline order. Informed MD that regional commercial sales manager Dr. Cartagena has not seen patient at this time. He said to call cardiology professional advisor to see patient and gave an order for midline insertion. Resident currently on ATB Vancomycin and Cefepime for sepsis and fevers.
--- NOTE | 2021-02-13 10:01 | NUR ---
Spoke with [employer] answering service Sera requested to page Cardiology higher education administrator for consult. Awaiting for call back.
--- NOTE | 2021-02-13 10:20 | NUR ---
Seen and examined by Dr. Sullivan, reported that patient has been saturating between 91-94% at Fi02 50% with AC 14, TV 550, Fi02 50%, Peep +5. According to MD he will review chest x-ray result and labs taken today.
--- NOTE | 2021-02-13 11:56 | NUR ---
Notified Dr. Sullivan that after AM care patient's O2 sat reading 89-90% at Fi02 50%. Respiratory therapist bumped O2 to 60% with O2 sat reading @ 92%. RT increased Fi02 to 70% with O2 sat reading stays at 93%. O2 sat readings based on bedside pulse oximeter machine. Rechecked O2 sat using portable B/P machine, O2 sat reads 96%. Obtained order from Dr. Sullivan to do ABG for accurate 02 sat reading. Order carried out.
[2021-02-13] MEDS ORDERED: IV NS 0.9% 500 ML BAG IV ONE (12:00)
[2021-02-13 12:03] VITALS: BP 152/64
--- NOTE | 2021-02-13 12:08 | NUR ---
Placed a follow-up call to [facility] exchange requesting to speak with cotton ball machine tender, was transferred to Dr. Cartagena and made aware of consult ordered by Dr. Santillan.
[2021-02-13 12:09] LABS: ABG BASE EXCESS 0.5 mmol/L; ABG OXYGEN SATURATION 95.5 % (92.0-98.5); ABG PCO2 29.9 mmHg (35.0-45.0); ABG PH 7.505 (7.350-7.450); ABG PO2 77.1 mmHg (75.0-100.0); AaDO2 389.9 mmHg; MetHb 0.1 % (0.0-1.5); O2Hb 95.4 % (94.0-97.0); PEEP,BG 5 cm H2O; SITE, ABG Right Radial; VT, ABG 550 mL
--- NOTE | 2021-02-13 12:16 | NUR ---
ABG result relayed to Dr. Sullivan with order to transfer patient to ICU direct admit, nursing supervisor electronic testing notified. ER admitting notified and requested ICU account. Continue to monitor patient pending room assignment from ICU.
--- NOTE | 2021-02-13 12:40 | NUR ---
RT NOTE RECEIVED PATIENT WITH #8 SHILEY PERC TRACH ON MECHANICAL VENT. ABG DONE AND REPORTED TO WITH CHANGES MADE PER HIS ORDERS. @1240-PATIENT TRANSPORTED TO ICU PER MD ORDER. PATIENT PLACED ON ESPRIT VENT WITH VENT SETTINGS PER MD ORDER. VENT ALARMS SET AND AUDIBLE. SUCTIONED MODERATE-LARGE AMOUNTS OF THICK COLES SECRETIONS. AMBU BAG AND NEW TRACH AT [facility].
--- NOTE | 2021-02-13 12:45 | NUR ---
Notified Dr. Santillan that patient will be transferred to ICU ordered by Dr. Sullivan. Resident's sister Shae made aware of change in condition and reason for transfer. Appreciated the update given.
--- NOTE | 2021-02-13 12:55 | NUR ---
Resident transferred via bed to ICU Room 253 in stable condition, accompanied by RT and RN. Patient not in acute distress or discomfort, no SOB. Remain on ventilator with the following setting AC 14, TV 550, Fi02 70%, peep 5, O2 sat @ 91-92%. Report and paper works given to ANDREW.
--- NOTE | 2021-02-13 14:10 | NUR ---
Report given to admitting HELPER ANIMAL LABORATORY, Carlyn regarding patient's condition, reason for transfer, diagnosis, code status, medications and lab result. Informed that family c/o sister Shae Jauregui has been notified. Dr. Cartagena already aware of cardio consult due to irregular HR but has not seen patient at this time. Copies of medication list, current physician's order, POLST, labs given to RN.
[2021-02-15] MEDS ORDERED: VANC1FRO2 IV (10:40)
[2021-02-15] MEDS ORDERED: CEFE2FRO IV (10:40)
[2021-02-15] MEDS ORDERED: TOBR40VI2 INH (10:40)
--- NOTE | 2021-02-15 12:00 | NUR ---
Readmitted resident from ICU, bed pushed to unit by RT and WIDE AREA NETWORK ENGINEER. Awake, on mechanical ventilator, resp. even and unlabored, no s/s of resp. distress. Trach secured and midline, still with suture. PEG tube intact and patent. Midline on MK. F/C intact and patent draining yellow colored urine. Admission care rendered. Dr. Santillan informed of admission, confirmed meds. Body check and pictures done. Will continue to monitor.
[2021-02-15 13:14] VITALS: BP 132/75
[2021-02-15] MEDS ORDERED: LACT-209 GT (13:42)
[2021-02-15] MEDS ORDERED: AMLO-213 GT (13:42)
[2021-02-15] MEDS ORDERED: LISI-768 GT (13:45)
[2021-02-15] MEDS ORDERED: CEFEPIME 2 GM in IV D5W 100 ML IV SCH ×2 (15:00→19:00)
[2021-02-15] MEDS: CEFEPIME 2 GM in IV D5W 100 ML IV SCH (15:00)
[2021-02-15] MEDS: ALBUTEROL FS 2.5 MG/0.5 ML VIAL.NEB NEB SCH ×2 (19:30→19:52)
[2021-02-15] MEDS: IPRATROPIUM NEB FS 0.5 MG/2.5 ML AMPUL.NEB NEB SCH (19:52)
[2021-02-15] MEDS: ENOXAPARIN SODIUM 40 MG/0.4 ML DISP.SYRIN SQ SCH (20:21)
[2021-02-15] MEDS: METOCLOPRAMIDE HCL 10 MG/10 ML UDC GT SCH (20:21)
[2021-02-15] MEDS: Z GUARD REMEDY 4 OZ OINT TP SCH (20:22)
[2021-02-15 20:28] VITALS: BP 96/61
[2021-02-15] MEDS: TOBRAMYCIN 80 MG/2 ML VIAL INH SCH (21:00)
[2021-02-15] MEDS: LATANOPROST EYE DROP 0.005% 2.5 ML BOTTLE EACHEYE SCH (21:23)
[2021-02-15] MEDS: ATORVASTATIN 40 MG TABLET GT SCH (21:23)
[2021-02-16] MEDS: ALBUTEROL FS 2.5 MG/0.5 ML VIAL.NEB NEB SCH ×2 (01:30→07:57)
[2021-02-16] MEDS: JEVITY 1.2 CAL 1,000 ML BOTTLE GT PRN (01:43)
[2021-02-16] MEDS: IPRATROPIUM NEB FS 0.5 MG/2.5 ML AMPUL.NEB NEB SCH ×4 (02:01→20:16)
[2021-02-16] MEDS: METOCLOPRAMIDE HCL 10 MG/10 ML UDC GT SCH ×3 (05:48→21:37)
[2021-02-16] MEDS: VANCOMYCIN 1 GM in IV D5W 250ml IV SCH (06:00)
[2021-02-16 08:24] VITALS: BP 109/66
[2021-02-16] MEDS: AMLODIPINE BESYLATE 10 MG TABLET GT SCH (09:00)
[2021-02-16] MEDS ORDERED: LISINOPRIL (5MG) 5 MG TABLET GT SCH (09:00)
[2021-02-16] MEDS: TIMOLOL 0.5% SOLN OPHTH 5 ML BOTTLE EACHEYE SCH ×2 (09:00→17:00)
[2021-02-16] MEDS: TOBRAMYCIN 80 MG/2 ML VIAL INH SCH ×2 (09:04→20:45)
[2021-02-16] MEDS: DOCUSATE SODIUM LIQ 100 MG/10 ML UDC GT SCH ×2 (09:28→17:09)
[2021-02-16] MEDS: ASPIRIN 81 MG TAB.CHEW GT SCH (09:28)
[2021-02-16] MEDS: LORATADINE 10 MG TABLET GT SCH (09:28)
[2021-02-16] MEDS: FERROUS SULFATE - FOR SA ONLY 330 MG/7.5 ML UDC GT SCH ×2 (09:28→17:09)
[2021-02-16] MEDS: BICALUTAMIDE 50 MG TABLET GT SCH (09:28)
[2021-02-16] MEDS: BACLOFEN (10 MG) 10 MG TABLET GT SCH (09:29)
[2021-02-16] MEDS: FOLIC ACID 1 MG TABLET GT SCH (09:29)
[2021-02-16] MEDS: VITAMINS A AND D 56.7 GM TUBE TP SCH (09:31)
[2021-02-16] MEDS: Z GUARD REMEDY 4 OZ OINT TP SCH ×2 (09:31→21:38)
[2021-02-16] MEDS: PYRIDOXINE HCL 50 MG TABLET GT SCH (09:31)
[2021-02-16] MEDS: PANTOPRAZOLE 40 MG/PACK PACK GT SCH (09:31)
[2021-02-16] MEDS: CEFEPIME 2 GM in IV D5W 100 ML IV SCH (14:36)
--- NOTE | 2021-02-16 16:32 | NUR ---
Relayed urine culture result Torulopsis glabrata to INSTITUTION DIRECTOR Xenia Zazueta. She ordered to give VFend 200 mg GT BID for 7 days. Notified pt's sister Shae. Shae is aware that pt is back in Subacute.
[2021-02-16] MEDS: VORICONAZOLE 200 MG TABLET GT SCH (17:12)
[2021-02-16 20:21] VITALS: BP 143/94
[2021-02-16] MEDS: ENOXAPARIN SODIUM 40 MG/0.4 ML DISP.SYRIN SQ SCH (21:37)
[2021-02-16] MEDS: ATORVASTATIN 40 MG TABLET GT SCH (21:38)
[2021-02-16] MEDS: LATANOPROST EYE DROP 0.005% 2.5 ML BOTTLE EACHEYE SCH (21:38)
[2021-02-16] MEDS: ACETAMINOPHEN 650 MG/20 ML UDC- SA PATIENTS-PAIN ONLY GT PRN (21:39)
[2021-02-17] MEDS: IPRATROPIUM NEB FS 0.5 MG/2.5 ML AMPUL.NEB NEB SCH ×3 (01:50→13:22)
[2021-02-17] MEDS: ONDANSETRON 4 MG TAB.RAPDIS GT PRN ×2 (01:58→23:57)
--- NOTE | 2021-02-17 01:59 | NUR ---
Pt vomited x1. Feeding held and Zofran prn given as ordered. HOB elevated at all times. Vital signs WNL. Will continue to monitor.
--- NOTE | 2021-02-17 03:00 | NUR ---
Post 1 hr Zofran effective. No more nausea or vomiting. Gastric residual 30cc. GTF resumed.
[2021-02-17] MEDS: JEVITY 1.2 CAL 1,000 ML BOTTLE GT PRN (05:26)
[2021-02-17] MEDS: METOCLOPRAMIDE HCL 10 MG/10 ML UDC GT SCH ×3 (05:26→21:44)
[2021-02-17] MEDS: VANCOMYCIN 1 GM in IV D5W 250ml IV SCH (06:00)
[2021-02-17 07:52] LABS: CALCIUM, SERUM 9.1 mg/dL (8.5-10.1); POTASSIUM 4.1 mmol/L (3.5-5.1)
[2021-02-17] MEDS: TOBRAMYCIN 80 MG/2 ML VIAL INH SCH (08:44)
[2021-02-17] MEDS: AMLODIPINE BESYLATE 10 MG TABLET GT SCH (09:00)
[2021-02-17] MEDS: Z GUARD REMEDY 4 OZ OINT TP SCH ×2 (09:00→21:45)
[2021-02-17] MEDS: FOLIC ACID 1 MG TABLET GT SCH (09:00)
[2021-02-17] MEDS: FERROUS SULFATE - FOR SA ONLY 330 MG/7.5 ML UDC GT SCH ×2 (09:00→17:01)
[2021-02-17] MEDS: LORATADINE 10 MG TABLET GT SCH (09:00)
[2021-02-17] MEDS: PANTOPRAZOLE 40 MG/PACK PACK GT SCH (09:00)
[2021-02-17] MEDS: ASPIRIN 81 MG TAB.CHEW GT SCH (09:00)
[2021-02-17] MEDS: TIMOLOL 0.5% SOLN OPHTH 5 ML BOTTLE EACHEYE SCH ×2 (09:00→17:01)
[2021-02-17] MEDS: BICALUTAMIDE 50 MG TABLET GT SCH (09:00)
[2021-02-17] MEDS: PYRIDOXINE HCL 50 MG TABLET GT SCH (09:00)
[2021-02-17] MEDS: VITAMINS A AND D 56.7 GM TUBE TP SCH (09:00)
[2021-02-17] MEDS: BACLOFEN (10 MG) 10 MG TABLET GT SCH (09:00)
[2021-02-17] MEDS: VORICONAZOLE 200 MG TABLET GT SCH ×2 (09:00→17:01)
[2021-02-17] MEDS: DOCUSATE SODIUM LIQ 100 MG/10 ML UDC GT SCH ×2 (09:00→17:01)
[2021-02-17 11:17] VITALS: BP 110/57
--- NOTE | 2021-02-17 12:26 | NUR ---
MAURICIO called office of Urologist, Dr. Abram Breaux who was treating this pt. for prostate cancer. MAURICIO left voicemail requesting to schedule apt. for Lupron shot pt. is to receive on March 2021.
[2021-02-17 14:00] VITALS: BP 125/80
[2021-02-17] MEDS: CEFEPIME 2 GM in IV D5W 100 ML IV SCH (15:55)
--- NOTE | 2021-02-17 18:50 | NUR ---
Updated resident's sister Shae of new orders received today including change of antibiotic to Gentamicin and reviewed skin condition with patient's sister. Appreciated the information provided. She said that she is updating her record of all changes in medications and skin issues.
[2021-02-17 19:39] VITALS: BP 121/75
[2021-02-17] MEDS: IPRATROPIUM HALF ST 0.25 MG/1.25 ML VIAL.NEB NEB SCH ×2 (19:46→23:34)
[2021-02-17] MEDS ORDERED: GENTAMICIN 500 MG in IV D5W 100 ML IV SCH (20:00)
[2021-02-17] MEDS: GENTAMICIN 320 MG in IV D5W 100 ML IV SCH (20:00)
--- NOTE | 2021-02-17 20:15 | NUR ---
1929 received patient with temp 102.7 HR115,BP121/75 ,O2 sats 95% Tylenol and cooling measures provided. Notified Jailyn BAFFLE INSTALLER with new orders,Blood cx x2,sputum cx,urine, CBC and BMP in AM. Sister notified ragarding changes in condition and new orders appreciative of the call. Will carry out orders. will continue to monitor.
[2021-02-17] MEDS: ACETAMINOPHEN 650 MG/20 ML UDC- SA PATIENTS-FEVER ONLY GT PRN (20:32)
[2021-02-17] MEDS: ENOXAPARIN SODIUM 40 MG/0.4 ML DISP.SYRIN SQ SCH (21:44)
[2021-02-17] MEDS: LATANOPROST EYE DROP 0.005% 2.5 ML BOTTLE EACHEYE SCH (21:45)
[2021-02-17] MEDS: ATORVASTATIN 40 MG TABLET GT SCH (21:45)
--- NOTE | 2021-02-17 22:06 | NUR ---
Seen by Xenia PERALES with new order CXR in AM. Latest temp 99.8
--- NOTE | 2021-02-18 00:02 | NUR ---
Pt has episode of vomiting x1 small amount yellow color. Zofran 4 mg prn given as ordered. GTF held. HOB elevated at all times. Aspiration precaution observed at all times Current temp is 99.4. charge nurse RN aware Will continue to monitor.
[2021-02-18 00:42] VITALS: BP 102/52
--- NOTE | 2021-02-18 01:15 | NUR ---
Post 1 hr Zofran effective No nausea or vomiting Gastric residual 20 cc. Feeding resumed. HOB elevated. Aspiration precaution observed at all times. Will continue to monitor.
[2021-02-18] MEDS: IPRATROPIUM HALF ST 0.25 MG/1.25 ML VIAL.NEB NEB SCH ×6 (03:17→23:10)
[2021-02-18 04:37] LABS: BASOPHILS % (AUTO) 0.2 % (0.0-2.0); EOSINOPHILS % (AUTO) 2.2 % (0.0-6.0); HEMATOCRIT 24 % (39-51); HEMOGLOBIN 7.7 g/dL (13.5-17.5); LYMPHOCYTES # (AUTO) 0.8 K/uL (0.8-4.8); LYMPHOCYTES % (AUTO) 6.9 % (20.0-44.0); MEAN CORPUSCULAR HGB CONC 33 g/dl (31.0-36.0); MEAN CORPUSCULAR VOLUME 92 fL (80-96); MONOCYTES # (AUTO) 0.6 K/uL (0.1-1.30); MONOCYTES % (AUTO) 5.8 % (2.0-12.0); NEUTROPHILS # (AUTO) 9.2 K/uL (1.8-8.9); NEUTROPHILS % (AUTO) 84.9 % (43.0-81.0); PLATELET COUNT (AUTO) 453 K/uL (150-450); RED BLOOD CELL COUNT(AUTO) 2.58 MIL/uL (4.5-6.0); WHITE BLOOD COUNT (AUTO) 10.9 K/uL (4.3-11.0)
[2021-02-18 04:54] LABS: CALCIUM, SERUM 8.9 mg/dL (8.5-10.1); CREATININE 1.1 mg/dL (0.6-1.3); POTASSIUM 4.2 mmol/L (3.5-5.1)
[2021-02-18] MEDS: METOCLOPRAMIDE HCL 10 MG/10 ML UDC GT SCH ×3 (05:48→21:36)
[2021-02-18 07:24] VITALS: BP 112/61
--- NOTE | 2021-02-18 07:44 | NUR ---
WOUND CARE CONSULT: PT SEEN FOR RT BUTTOCK RASH WITH EXCORIATED AREAS. RECOMMENDATIONS MADE FOR LOTRIMIN CREAM, FOLLOW WITH Z GUARD AND COVER WITH FOAM DRESSING EVERY SHIFT FOR 14 DAYS. DISCUSSED SKIN PROTECTION WITH NURSING STAFF. [facility] IN AGREEMENT WITH PLAN OF CARE.
--- NOTE | 2021-02-18 08:00 | NUR ---
Seen by wound nurse Betty. Received order to DC treatment for right hip redness. She clarified that the right hip redness is a right buttock excoriation/rash. Received order to apply Lotrimin cream followed with Z-guard then covered with Mepilex foam dressing q shift for 14 days. Notified pt's sister.
[2021-02-18] MEDS: Z GUARD REMEDY 4 OZ OINT TP SCH ×2 (09:00→21:37)
[2021-02-18] MEDS: BACLOFEN (10 MG) 10 MG TABLET GT SCH (09:51)
[2021-02-18] MEDS: PANTOPRAZOLE 40 MG/PACK PACK GT SCH (09:51)
[2021-02-18] MEDS: LORATADINE 10 MG TABLET GT SCH (09:51)
[2021-02-18] MEDS: AMLODIPINE BESYLATE 10 MG TABLET GT SCH (09:52)
[2021-02-18] MEDS: BICALUTAMIDE 50 MG TABLET GT SCH (09:52)
[2021-02-18] MEDS: PYRIDOXINE HCL 50 MG TABLET GT SCH (09:52)
[2021-02-18] MEDS: FERROUS SULFATE - FOR SA ONLY 330 MG/7.5 ML UDC GT SCH ×2 (09:53→16:14)
[2021-02-18] MEDS: DOCUSATE SODIUM LIQ 100 MG/10 ML UDC GT SCH ×2 (09:53→16:14)
[2021-02-18] MEDS: ASPIRIN 81 MG TAB.CHEW GT SCH (09:56)
[2021-02-18] MEDS: FOLIC ACID 1 MG TABLET GT SCH (09:56)
[2021-02-18] MEDS: VORICONAZOLE 200 MG TABLET GT SCH ×2 (09:56→16:13)
[2021-02-18] MEDS: VITAMINS A AND D 56.7 GM TUBE TP SCH (09:57)
[2021-02-18] MEDS: TIMOLOL 0.5% SOLN OPHTH 5 ML BOTTLE EACHEYE SCH ×2 (09:57→16:14)
--- NOTE | 2021-02-18 12:00 | NUR ---
Seen by CASINO SUPERVISOR Jennifer Porras. Relayed CXR result to her. No new order.
--- NOTE | 2021-02-18 12:30 | NUR ---
SS Note: SW received signed Authorization for Use or Disclosure of Health Information from pt.'s sister, Shae Jauregui. MAURICIO faxed paperwork to [employer] FAX: [phone] to request medical records from pt.'s PCP: Wily Mcclain at [facility] TEL: [phone]. MAURICIO will follow up as needed.
[2021-02-18 16:00] VITALS: BP 118/64
[2021-02-18 19:25] VITALS: BP 116/64
[2021-02-18] MEDS ORDERED: TEMAZEPAM 15 MG CAPSULE GT PRN (19:30)
[2021-02-18] MEDS ORDERED: MELATONIN 3 MG TABLET GT PRN (19:30)
[2021-02-18] MEDS: ACETAMINOPHEN 650 MG/20 ML UDC- SA PATIENTS-FEVER ONLY GT PRN (19:33)
[2021-02-18] MEDS: ENOXAPARIN SODIUM 40 MG/0.4 ML DISP.SYRIN SQ SCH (21:35)
[2021-02-18] MEDS: ATORVASTATIN 40 MG TABLET GT SCH (21:36)
[2021-02-18] MEDS: Z GUARD REMEDY 2 OZ OINT TP SCH (21:36)
[2021-02-18] MEDS: LATANOPROST EYE DROP 0.005% 2.5 ML BOTTLE EACHEYE SCH ×2 (21:37→22:00)
[2021-02-18] MEDS: CLOTRIMAZOLE 1% 15 GM TUBE TP SCH (21:37)
[2021-02-19 00:06] VITALS: BP 113/62
[2021-02-19] MEDS: IPRATROPIUM HALF ST 0.25 MG/1.25 ML VIAL.NEB NEB SCH ×6 (02:30→23:30)
[2021-02-19] MEDS: METOCLOPRAMIDE HCL 10 MG/10 ML UDC GT SCH ×2 (06:13→12:49)
[2021-02-19] MEDS: BISACODYL SUPP (10 MG) 10 MG/SUPP.RECT SUPP.RECT RC PRN (06:51)
[2021-02-19 07:32] LABS: CALCIUM, SERUM 9.1 mg/dL (8.5-10.1); CREATININE 0.9 mg/dL (0.6-1.3); POTASSIUM 4.6 mmol/L (3.5-5.1)
[2021-02-19 07:41] VITALS: BP 107/61
[2021-02-19] MEDS: AMLODIPINE BESYLATE 10 MG TABLET GT SCH (08:58)
[2021-02-19] MEDS: PYRIDOXINE HCL 50 MG TABLET GT SCH (08:59)
[2021-02-19] MEDS: BICALUTAMIDE 50 MG TABLET GT SCH (08:59)
[2021-02-19] MEDS: FOLIC ACID 1 MG TABLET GT SCH (08:59)
[2021-02-19] MEDS: PANTOPRAZOLE 40 MG/PACK PACK GT SCH (08:59)
[2021-02-19] MEDS: ASPIRIN 81 MG TAB.CHEW GT SCH (08:59)
[2021-02-19] MEDS: VORICONAZOLE 200 MG TABLET GT SCH ×2 (08:59→16:52)
[2021-02-19] MEDS: BACLOFEN (10 MG) 10 MG TABLET GT SCH (08:59)
[2021-02-19] MEDS: LORATADINE 10 MG TABLET GT SCH (08:59)
[2021-02-19] MEDS: DOCUSATE SODIUM LIQ 100 MG/10 ML UDC GT SCH ×2 (09:00→16:52)
[2021-02-19] MEDS: Z GUARD REMEDY 4 OZ OINT TP SCH ×2 (09:00→20:42)
[2021-02-19] MEDS: Z GUARD REMEDY 2 OZ OINT TP SCH ×2 (09:00→20:42)
[2021-02-19] MEDS: CLOTRIMAZOLE 1% 15 GM TUBE TP SCH ×2 (09:00→20:42)
[2021-02-19] MEDS: FERROUS SULFATE - FOR SA ONLY 330 MG/7.5 ML UDC GT SCH ×2 (09:00→16:52)
[2021-02-19] MEDS: TIMOLOL 0.5% SOLN OPHTH 5 ML BOTTLE EACHEYE SCH ×2 (09:01→16:52)
[2021-02-19] MEDS: VITAMINS A AND D 56.7 GM TUBE TP SCH (09:01)
[2021-02-19] MEDS: GENTAMICIN 320 MG in IV D5W 100 ML IV SCH (09:17)
[2021-02-19 15:32] VITALS: BP 115/68
[2021-02-19] MEDS: ONDANSETRON 4 MG TAB.RAPDIS GT PRN (15:56)
--- NOTE | 2021-02-19 16:30 | NUR ---
Notified Dr. Santillan resident with 2x episode of vomiting, no gastric residual, Zofran given / GT as needed for N/V, Had BM this shift. Resident's high risk case manager Maciej Mathew as bedside, informed of vomiting episode. Ms. Mathew said that patient has problem with constipation that he receives Prunelax 2 tabs every other day. She said this is the only one that works well for him. She said that Lactulose was also tried but did not work as well. Dr. Santillan gave an order to give Prunelax and family to provide. Maciej informed. Resident's sister informed.
[2021-02-19] MEDS: ACETAMINOPHEN 650 MG/20 ML UDC- SA PATIENTS-FEVER ONLY GT PRN (18:52)
--- NOTE | 2021-02-19 19:10 | NUR ---
Notified Dr. Santillan that resident vomited again despite administration of Zofran, no gastric residual but gassy. New order given to hold GT feeding x 24 hours and give IVF D5 NS at 80cc/hr, stat KUB, OK to change Zofran GT to IV, Repeat CBC and CMP in AM and if KUB is negative start Reglan 10 mg IV TID. Endorsed to incoming shift to carry out orders and inform family of new orders.
[2021-02-19 19:13] VITALS: BP 126/70
--- NOTE | 2021-02-19 19:54 | NUR ---
Patient sister Shae notified of SANDY and new orders. Appreciative of the call.Will continue to monitor.
[2021-02-19] MEDS: IV D5/ 0.9% NACL 1,000 ML IV PRN (20:17)
[2021-02-19] MEDS: ENOXAPARIN SODIUM 40 MG/0.4 ML DISP.SYRIN SQ SCH (20:44)
[2021-02-19] MEDS: ATORVASTATIN 40 MG TABLET GT SCH (21:03)
[2021-02-19] MEDS: LATANOPROST EYE DROP 0.005% 2.5 ML BOTTLE EACHEYE SCH (21:03)
[2021-02-19] MEDS: METOCLOPRAMIDE HCL 10 MG/2 ML VIAL IV SCH (21:12)
--- NOTE | 2021-02-19 21:30 | NUR ---
Patient seen by Xenia Zazueta show her the results of KUB ordered by Dr. Santillan. She ordered Metronidazole 500 mg every 8 hours IV for bowel obstruction. GI consult in AM. OK to give Reglan 10 mg IV. Will carry out orders.
[2021-02-19] MEDS ORDERED: METRONIDAZOLE 500MG/ NS 100ML 100 ML IV ONE (23:30)
[2021-02-19] MEDS: METRONIDAZOLE 500MG/ NS 100ML 500 MG in PREMIX 1 EA IV SCH (23:41)
[2021-02-20 00:15] VITALS: BP 131/83
[2021-02-20] MEDS: IPRATROPIUM HALF ST 0.25 MG/1.25 ML VIAL.NEB NEB SCH ×6 (03:30→23:46)
[2021-02-20] MEDS ORDERED: ONDANSETRON HCL/PF 4 MG/2 ML VIAL IV PRN (04:30)
[2021-02-20] MEDS ORDERED: METRONIDAZOLE 500MG/ NS 100ML 100 ML IV ONE (05:24)
[2021-02-20] MEDS: METOCLOPRAMIDE HCL 10 MG/2 ML VIAL IV SCH ×3 (05:27→20:46)
[2021-02-20] MEDS: METRONIDAZOLE 500MG/ NS 100ML 500 MG in PREMIX 1 EA IV SCH ×3 (05:46→21:59)
--- NOTE | 2021-02-20 06:41 | NUR ---
Patient had no episodes of vomiting,no bowel movement.GT feeding continue to hold on IV hydration of D5 NS 80 ml/hr. Metronidazole 500 mg Q 8 hours IV given,no adverse reaction.Will continue to monitor and will endorse.
[2021-02-20 06:48] LABS: BASOPHILS # (AUTO) 0.1 K/uL (0.0-0.2); BASOPHILS % (AUTO) 0.8 % (0.0-2.0); EOSINOPHILS % (AUTO) 2.4 % (0.0-6.0); HEMATOCRIT 22 % (39-51); HEMOGLOBIN 7.2 g/dL (13.5-17.5); LYMPHOCYTES # (AUTO) 0.9 K/uL (0.8-4.8); LYMPHOCYTES % (AUTO) 9.2 % (20.0-44.0); MEAN CORPUSCULAR HGB CONC 32 g/dl (31.0-36.0); MEAN CORPUSCULAR VOLUME 93 fL (80-96); MONOCYTES # (AUTO) 0.6 K/uL (0.1-1.30); MONOCYTES % (AUTO) 6.7 % (2.0-12.0); NEUTROPHILS # (AUTO) 7.7 K/uL (1.8-8.9); NEUTROPHILS % (AUTO) 80.9 % (43.0-81.0); PLATELET COUNT (AUTO) 516 K/uL (150-450); RED BLOOD CELL COUNT(AUTO) 2.41 MIL/uL (4.5-6.0); WHITE BLOOD COUNT (AUTO) 9.5 K/uL (4.3-11.0)
[2021-02-20 07:01] LABS: BILIRUBIN,TOTAL 0.3 mg/dL (0.2-1.0); CALCIUM, SERUM 8.6 mg/dL (8.5-10.1); POTASSIUM 4.2 mmol/L (3.5-5.1); TOTAL PROTEIN, SERUM 6.2 g/dL (6.4-8.2)
[2021-02-20 07:04] LABS: ALBUMIN 1.2 g/dL (3.4-5.0)
[2021-02-20 07:09] VITALS: BP 128/70
[2021-02-20] MEDS: BICALUTAMIDE 50 MG TABLET GT SCH (09:06)
[2021-02-20] MEDS: LORATADINE 10 MG TABLET GT SCH (09:06)
[2021-02-20] MEDS: ASPIRIN 81 MG TAB.CHEW GT SCH (09:06)
[2021-02-20] MEDS: TIMOLOL 0.5% SOLN OPHTH 5 ML BOTTLE EACHEYE SCH ×2 (09:06→16:32)
[2021-02-20] MEDS: DOCUSATE SODIUM LIQ 100 MG/10 ML UDC GT SCH ×2 (09:06→16:32)
[2021-02-20] MEDS: Z GUARD REMEDY 2 OZ OINT TP SCH ×2 (09:07→20:41)
[2021-02-20] MEDS: BACLOFEN (10 MG) 10 MG TABLET GT SCH (09:07)
[2021-02-20] MEDS: VORICONAZOLE 200 MG TABLET GT SCH ×2 (09:07→16:32)
[2021-02-20] MEDS: PANTOPRAZOLE 40 MG/PACK PACK GT SCH (09:07)
[2021-02-20] MEDS: CLOTRIMAZOLE 1% 15 GM TUBE TP SCH ×2 (09:07→20:41)
[2021-02-20] MEDS: FOLIC ACID 1 MG TABLET GT SCH (09:07)
[2021-02-20] MEDS: PYRIDOXINE HCL 50 MG TABLET GT SCH (09:07)
[2021-02-20] MEDS: AMLODIPINE BESYLATE 10 MG TABLET GT SCH (09:07)
[2021-02-20] MEDS: FERROUS SULFATE - FOR SA ONLY 330 MG/7.5 ML UDC GT SCH ×2 (09:07→16:32)
[2021-02-20] MEDS: Z GUARD REMEDY 4 OZ OINT TP SCH ×2 (09:08→20:41)
[2021-02-20] MEDS: VITAMINS A AND D 56.7 GM TUBE TP SCH (09:08)
--- NOTE | 2021-02-20 09:30 | NUR ---
Spoke with Dr. Irene, informed of GI consult. Relayed KUB result and episodes of vomiting yesterday. Dr. Irene gave an order to keep patient NPO, connect GT to gravity and abdominal KUB in AM. Informed resident's sister Shae of new orders and plan of care aand intervention. Appreciated the update given regarding patient's condition.
[2021-02-20] MEDS: IV D5/ 0.9% NACL 1,000 ML IV PRN (10:19)
--- NOTE | 2021-02-20 17:00 | NUR ---
Relayed CBC and BMP result to Dr. Santillan, updated of patient's condition and what is being done with patient at this time. He said to continue with IVF since patient remain NPO. Orders carried out.
[2021-02-20 20:34] VITALS: BP 113/66
[2021-02-20] MEDS: ENOXAPARIN SODIUM 40 MG/0.4 ML DISP.SYRIN SQ SCH (20:41)
[2021-02-20] MEDS: MAGNESIUM HYDROXIDE 30 ML UDC GT PRN (20:42)
[2021-02-20] MEDS: GENTAMICIN 320 MG in IV D5W 100 ML IV SCH (20:46)
[2021-02-20] MEDS: LATANOPROST EYE DROP 0.005% 2.5 ML BOTTLE EACHEYE SCH (21:11)
[2021-02-20] MEDS: ATORVASTATIN 40 MG TABLET GT SCH (21:11)
[2021-02-21] MEDS: IV D5/ 0.9% NACL 1,000 ML IV PRN ×2 (01:19→19:30)
[2021-02-21 01:27] VITALS: BP 112/61
[2021-02-21] MEDS: IPRATROPIUM HALF ST 0.25 MG/1.25 ML VIAL.NEB NEB SCH ×6 (03:54→23:52)
[2021-02-21] MEDS: METOCLOPRAMIDE HCL 10 MG/2 ML VIAL IV SCH ×3 (04:57→21:00)
[2021-02-21] MEDS: METRONIDAZOLE 500MG/ NS 100ML 500 MG in PREMIX 1 EA IV SCH ×3 (04:57→21:00)
[2021-02-21] MEDS: BISACODYL SUPP (10 MG) 10 MG/SUPP.RECT SUPP.RECT RC PRN ×2 (06:00→18:56)
[2021-02-21 07:38] VITALS: BP 115/65
[2021-02-21 07:43] LABS: CREATININE 0.8 mg/dL (0.6-1.3); POTASSIUM 3.9 mmol/L (3.5-5.1)
[2021-02-21] MEDS: FOLIC ACID 1 MG TABLET GT SCH (09:00)
[2021-02-21] MEDS: ASPIRIN 81 MG TAB.CHEW GT SCH (09:00)
[2021-02-21] MEDS: BACLOFEN (10 MG) 10 MG TABLET GT SCH (09:00)
[2021-02-21] MEDS: PANTOPRAZOLE 40 MG/PACK PACK GT SCH (09:00)
[2021-02-21] MEDS: PYRIDOXINE HCL 50 MG TABLET GT SCH (09:00)
[2021-02-21] MEDS: LORATADINE 10 MG TABLET GT SCH (09:00)
[2021-02-21] MEDS: BICALUTAMIDE 50 MG TABLET GT SCH (09:00)
[2021-02-21] MEDS: CLOTRIMAZOLE 1% 15 GM TUBE TP SCH ×2 (09:00→21:19)
[2021-02-21] MEDS: TIMOLOL 0.5% SOLN OPHTH 5 ML BOTTLE EACHEYE SCH ×2 (09:00→17:47)
[2021-02-21] MEDS: Z GUARD REMEDY 2 OZ OINT TP SCH ×2 (09:00→21:19)
[2021-02-21] MEDS: DOCUSATE SODIUM LIQ 100 MG/10 ML UDC GT SCH ×2 (09:00→17:47)
[2021-02-21] MEDS: Z GUARD REMEDY 4 OZ OINT TP SCH ×2 (09:00→21:19)
[2021-02-21] MEDS: AMLODIPINE BESYLATE 10 MG TABLET GT SCH (09:00)
[2021-02-21] MEDS: VITAMINS A AND D 56.7 GM TUBE TP SCH (09:00)
[2021-02-21] MEDS: VORICONAZOLE 200 MG TABLET GT SCH ×2 (09:00→17:47)
[2021-02-21] MEDS: FERROUS SULFATE - FOR SA ONLY 330 MG/7.5 ML UDC GT SCH ×2 (09:00→17:47)
--- NOTE | 2021-02-21 11:00 | NUR ---
Received KUB result, shows decreased gas distention of bowel loops compared to prior exam, may represent improving ileus or obstruction. Left message to Dr. Irene. Pls. follow up. No vomiting noted.
--- NOTE | 2021-02-21 12:30 | NUR ---
Seen and examined by Dr. Santillan, reviewed KUB result, gave order to resume GT feeding in AM 02/22/21 at slow rate 20cc/hr, increment of 5 cc every 12 hrs as tolerated until goal rate at 55cc/hr is met. No vomiting noted. Afebrile. Will continue to monitor.
[2021-02-21 15:49] VITALS: BP 120/72
[2021-02-21 19:50] VITALS: BP 96/61
[2021-02-21] MEDS: ENOXAPARIN SODIUM 40 MG/0.4 ML DISP.SYRIN SQ SCH (21:19)
[2021-02-21] MEDS: ATORVASTATIN 40 MG TABLET GT SCH (21:20)
[2021-02-21] MEDS: LATANOPROST EYE DROP 0.005% 2.5 ML BOTTLE EACHEYE SCH (21:20)
[2021-02-22] MEDS: IPRATROPIUM HALF ST 0.25 MG/1.25 ML VIAL.NEB NEB SCH ×6 (03:43→23:42)
[2021-02-22] MEDS: METRONIDAZOLE 500MG/ NS 100ML 500 MG in PREMIX 1 EA IV SCH ×3 (05:00→21:46)
[2021-02-22] MEDS: METOCLOPRAMIDE HCL 10 MG/2 ML VIAL IV SCH ×3 (05:00→20:47)
[2021-02-22 07:43] VITALS: BP 102/57
[2021-02-22] MEDS: GENTAMICIN 320 MG in IV D5W 100 ML IV SCH (08:22)
[2021-02-22] MEDS: AMLODIPINE BESYLATE 10 MG TABLET GT SCH (09:00)
[2021-02-22] MEDS: JEVITY 1.2 CAL 1,000 ML BOTTLE GT PRN (09:21)
[2021-02-22] MEDS: VITAMINS A AND D 56.7 GM TUBE TP SCH (09:21)
[2021-02-22] MEDS: Z GUARD REMEDY 4 OZ OINT TP SCH ×2 (09:22→20:47)
[2021-02-22] MEDS: Z GUARD REMEDY 2 OZ OINT TP SCH ×2 (09:22→20:47)
[2021-02-22] MEDS: CLOTRIMAZOLE 1% 15 GM TUBE TP SCH ×2 (09:22→20:47)
[2021-02-22] MEDS: DOCUSATE SODIUM LIQ 100 MG/10 ML UDC GT SCH ×2 (09:26→16:13)
[2021-02-22] MEDS: BACLOFEN (10 MG) 10 MG TABLET GT SCH (09:26)
[2021-02-22] MEDS: ASPIRIN 81 MG TAB.CHEW GT SCH (09:26)
[2021-02-22] MEDS: BICALUTAMIDE 50 MG TABLET GT SCH (09:26)
[2021-02-22] MEDS: FERROUS SULFATE - FOR SA ONLY 330 MG/7.5 ML UDC GT SCH ×2 (09:26→16:13)
[2021-02-22] MEDS: PANTOPRAZOLE 40 MG/PACK PACK GT SCH (09:26)
[2021-02-22] MEDS: FOLIC ACID 1 MG TABLET GT SCH (09:26)
[2021-02-22] MEDS: LORATADINE 10 MG TABLET GT SCH (09:26)
[2021-02-22] MEDS: VORICONAZOLE 200 MG TABLET GT SCH ×2 (09:26→16:14)
[2021-02-22] MEDS: PYRIDOXINE HCL 50 MG TABLET GT SCH (09:27)
[2021-02-22] MEDS: TIMOLOL 0.5% SOLN OPHTH 5 ML BOTTLE EACHEYE SCH ×2 (09:32→16:12)
--- NOTE | 2021-02-22 11:00 | NUR ---
Resident's case monitor Maciej visiting. She questioned L lateral wound that is exposed, she said that she did not know that patient has wound in the lateral foot. She said that patient's heels easily turned red that is why they use heel protector at home. Heel protector applied. Also made aware that this nurse informed Shae (sister) of patient's skin problem in details last week including the R buttock/hip redness. She requested to see the area. Identified skin problems are present on admission. Maciej also brought Prunelax and sent to pharmacy for labelling.
[2021-02-22 14:10] VITALS: BP 108/59
--- NOTE | 2021-02-22 16:22 | NUR ---
Spoke with Dr. Lemus GI informing him of KUB result and order given by Dr. Santillan to start GT feeding at 20 cc/hr. He said if tolerated to increase by 10 cc/hr Q shift until goal of 55cc/hr is reached, also ordered to DC GT by gravity order. Orders carried out.
[2021-02-22] MEDS ORDERED: JEVITY 1.2 CAL 1,000 ML BOTTLE GT PRN (17:30)
[2021-02-22 19:20] VITALS: BP 99/62
--- NOTE | 2021-02-22 19:45 | NUR ---
RN NOTES Seen and examined by Jennifer Porras NP, with new order, ok to D/C IV fluids if pt tolerates 40ml/hr. Noted and carried out.
[2021-02-22] MEDS: [UNRECOGNIZED DRUG - OTHER] GT SCH (20:46)
[2021-02-22] MEDS: ENOXAPARIN SODIUM 40 MG/0.4 ML DISP.SYRIN SQ SCH (20:49)
[2021-02-22] MEDS: ATORVASTATIN 40 MG TABLET GT SCH (22:01)
[2021-02-22] MEDS: LATANOPROST EYE DROP 0.005% 2.5 ML BOTTLE EACHEYE SCH (22:01)
[2021-02-23 01:46] VITALS: BP 99/65
[2021-02-23] MEDS: IPRATROPIUM HALF ST 0.25 MG/1.25 ML VIAL.NEB NEB SCH ×6 (04:11→23:57)
[2021-02-23] MEDS: METOCLOPRAMIDE HCL 10 MG/2 ML VIAL IV SCH ×3 (04:42→21:00)
[2021-02-23] MEDS: METRONIDAZOLE 500MG/ NS 100ML 500 MG in PREMIX 1 EA IV SCH ×3 (05:41→21:00)
[2021-02-23 07:35] VITALS: BP 126/66
[2021-02-23] MEDS: BACLOFEN (10 MG) 10 MG TABLET GT SCH (08:08)
[2021-02-23] MEDS: DOCUSATE SODIUM LIQ 100 MG/10 ML UDC GT SCH ×2 (08:08→16:13)
[2021-02-23] MEDS: TIMOLOL 0.5% SOLN OPHTH 5 ML BOTTLE EACHEYE SCH ×2 (08:08→16:12)
[2021-02-23] MEDS: FOLIC ACID 1 MG TABLET GT SCH (08:08)
[2021-02-23] MEDS: LORATADINE 10 MG TABLET GT SCH (08:08)
[2021-02-23] MEDS: ASPIRIN 81 MG TAB.CHEW GT SCH (08:08)
[2021-02-23] MEDS: FERROUS SULFATE - FOR SA ONLY 330 MG/7.5 ML UDC GT SCH ×2 (08:08→16:14)
[2021-02-23] MEDS: BICALUTAMIDE 50 MG TABLET GT SCH (08:08)
[2021-02-23] MEDS: PYRIDOXINE HCL 50 MG TABLET GT SCH (08:09)
[2021-02-23] MEDS: VORICONAZOLE 200 MG TABLET GT SCH (08:09)
[2021-02-23] MEDS: PANTOPRAZOLE 40 MG/PACK PACK GT SCH (08:09)
[2021-02-23] MEDS: AMLODIPINE BESYLATE 10 MG TABLET GT SCH (08:09)
[2021-02-23] MEDS: CLOTRIMAZOLE 1% 15 GM TUBE TP SCH ×2 (08:10→21:18)
[2021-02-23] MEDS: Z GUARD REMEDY 2 OZ OINT TP SCH ×2 (08:10→21:19)
[2021-02-23] MEDS: VITAMINS A AND D 56.7 GM TUBE TP SCH (08:24)
[2021-02-23] MEDS: Z GUARD REMEDY 4 OZ OINT TP SCH ×2 (08:24→21:19)
[2021-02-23 13:32] VITALS: BP 129/72
--- NOTE | 2021-02-23 13:53 | NUR ---
Notified ANGELLA Porras that pt had some reddish brown mucus mixed with his stool. ANGELLA Porras ordered H and H.
[2021-02-23 15:06] LABS: HEMOGLOBIN 8.1 g/dL (13.5-17.5)
--- NOTE | 2021-02-23 15:20 | NUR ---
pt hot to touch on face and fore head, temperature taken twice 98.6 axillary bi-lateral under arm, F/C intact however the bag containers plastic clip to hang broke, changed out bag and connector device only left F/C in place as it is intact and working properly, family / friends visited for a while which cheered up his attitude, wound care complete to each site each site appears to be healing well and treatment appears to be very effective at this time, had some grunting and moaning during care of left heel, made comfortable and repositioned to relieve any pressure on the right side at this time, will continue to monitor, g-tube intact patent and flowing, safety measures in place bed low to floor and locked, trach intact patent and in place, call light within reach.
--- NOTE | 2021-02-23 15:40 | NUR ---
Relayed Hgt 8.1 Hct 25 to ANGELLA Porras. No new order.
[2021-02-23] MEDS: PROSOURCE / PROSTAT (PYXIS) 30 ML UDC GT SCH ×2 (16:16→21:18)
--- NOTE | 2021-02-23 18:38 | NUR ---
pt F/C addapter to plastic square container had broke off, the F/C drainage tube and collection box replaced with a new one in order to be able to hold the box and container above floor level and hook onto lower edge of bed, did not have to change entire andres to replace the container part, the F/C intact and inplace to protect pt from any unnecessary exposure to bacteria or potential UTI only the container and the tubing below was changed to a new one and the F/C inside penis was kept intact and not removed, it is patent and flowing well at this time and in good working order. pt warm to touch on face and body temp is at 99.5 at this time, notified regulation supervisor RN and will notify MD as well for any further orders will document any new orders. call light in reach, pt changed and cleaned and showered today, g-tube patent intact, IV site patent intact.
--- NOTE | 2021-02-23 18:45 | NUR ---
pt temperature rechecked 98. 4, and 98.5 used different thermometer device, no fever noted at this time will continue to monitor and no new orders at this time. call light in reach, bed locked postion
[2021-02-23 19:55] VITALS: BP 99/71
[2021-02-23] MEDS: GENTAMICIN 320 MG in IV D5W 100 ML IV SCH (20:00)
[2021-02-23] MEDS: ENOXAPARIN SODIUM 40 MG/0.4 ML DISP.SYRIN SQ SCH (21:18)
[2021-02-23] MEDS: ATORVASTATIN 40 MG TABLET GT SCH (21:19)
[2021-02-23] MEDS: LATANOPROST EYE DROP 0.005% 2.5 ML BOTTLE EACHEYE SCH (21:19)
[2021-02-24 00:30] VITALS: BP 114/58
[2021-02-24] MEDS: IPRATROPIUM HALF ST 0.25 MG/1.25 ML VIAL.NEB NEB SCH ×5 (04:17→19:48)
[2021-02-24] MEDS: METRONIDAZOLE 500MG/ NS 100ML 500 MG in PREMIX 1 EA IV SCH ×3 (05:00→20:27)
[2021-02-24] MEDS: METOCLOPRAMIDE HCL 10 MG/2 ML VIAL IV SCH ×3 (05:00→20:27)
[2021-02-24 07:28] VITALS: BP 119/53
[2021-02-24] MEDS: ASPIRIN 81 MG TAB.CHEW GT SCH (08:32)
[2021-02-24] MEDS: BICALUTAMIDE 50 MG TABLET GT SCH (08:32)
[2021-02-24] MEDS: TIMOLOL 0.5% SOLN OPHTH 5 ML BOTTLE EACHEYE SCH ×2 (08:32→16:12)
[2021-02-24] MEDS: DOCUSATE SODIUM LIQ 100 MG/10 ML UDC GT SCH ×2 (08:33→16:13)
[2021-02-24] MEDS: LORATADINE 10 MG TABLET GT SCH (08:33)
[2021-02-24] MEDS: BACLOFEN (10 MG) 10 MG TABLET GT SCH (08:34)
[2021-02-24] MEDS: FOLIC ACID 1 MG TABLET GT SCH (08:34)
[2021-02-24] MEDS: FERROUS SULFATE - FOR SA ONLY 330 MG/7.5 ML UDC GT SCH ×2 (08:34→16:13)
[2021-02-24] MEDS: [UNRECOGNIZED DRUG - OTHER] GT SCH (08:34)
[2021-02-24] MEDS: PROSOURCE / PROSTAT (PYXIS) 30 ML UDC GT SCH ×4 (08:35→21:00)
[2021-02-24] MEDS: PANTOPRAZOLE 40 MG/PACK PACK GT SCH (08:35)
[2021-02-24] MEDS: AMLODIPINE BESYLATE 10 MG TABLET GT SCH (08:35)
[2021-02-24] MEDS: PYRIDOXINE HCL 50 MG TABLET GT SCH (08:36)
[2021-02-24] MEDS: Z GUARD REMEDY 2 OZ OINT TP SCH ×2 (08:36→21:32)
[2021-02-24] MEDS: CLOTRIMAZOLE 1% 15 GM TUBE TP SCH ×2 (08:36→21:32)
[2021-02-24] MEDS: Z GUARD REMEDY 4 OZ OINT TP SCH ×2 (08:37→21:32)
[2021-02-24] MEDS: VITAMINS A AND D 56.7 GM TUBE TP SCH (08:37)
[2021-02-24] MEDS ORDERED: MULTIVIT W/MINERALS 1 TAB TABLET GT SCH (09:00)
[2021-02-24 12:14] VITALS: BP 122/60
[2021-02-24 19:10] VITALS: BP 101/57
[2021-02-24] MEDS: LATANOPROST EYE DROP 0.005% 2.5 ML BOTTLE EACHEYE SCH (21:32)
[2021-02-24] MEDS: ATORVASTATIN 40 MG TABLET GT SCH (21:32)
[2021-02-24] MEDS: ENOXAPARIN SODIUM 40 MG/0.4 ML DISP.SYRIN SQ SCH (21:32)
[2021-02-24] MEDS: ACETAMINOPHEN 650 MG/20 ML UDC- SA PATIENTS-PAIN ONLY GT PRN (21:33)
--- NOTE | 2021-02-24 22:40 | NUR ---
RN NOTES Patient noted with episodes of vomiting even after Reglan and Zofran IV, also noted with heart rate from 120-130bpm SPO2 92% on AC mode. GT feeding held, on-call SHOP ROUTER Larry Vivar notified with orders to transfer patient to [facility]. ER charge nurse notified, transferred patient via gurney accompanied by GEOPHYSICAL OBSERVER and RT. Endorsed accordingly to ROSALINDA Fiore.
--- NOTE | 2021-02-24 23:30 | NUR ---
RN NOTES CALLED AND SPOKE TO PATIENT SISTER MYLES NEWBERRY NOTIFIED OF TRANSFER AND BED HOLD FOR 7DAYS.
--- NOTE | 2021-02-26 11:00 | NUR ---
MAURICIO called office of Urologist, Dr. Abram Breaux regarding Lupron shot for prostate cancer treatment. MAURICIO spoke to MD's front end assistant who stated that considering the pt.s recent condition, the MD in not concerned with continuing Lupron Tx. Noted. MAURICIO notified SA Spring Salvage Worker, aSmara and notified Maciej Mathew, [facility] [phone] who expressed understanding. Rachid stateD she is concerned if discontinuing the Lupron Tx. is the best option for the pt. and would want the attending physicians input regarding this matter. Noted. MAURICIO will notify charge nurse for this to be addressed when pt. returns to unit.
--- NOTE | 2021-02-26 11:09 | NUR ---
MAURICIO notified by Rachid Mathew that the [facility] point of contact for this pt. is [facility] [phone]. MAURICIO left [facility] a voicemail to establish contact. SW will be available as needed.
--- NOTE | 2021-03-01 15:50 | NUR ---
Pt readmitted from [facility]. Pt awake upon admission. He is on Cefepime, Vancomycin, and Metronidazole IV for sepsis. Body assessment done. Started GT feeding Jevity 1.2 at 40 mL/hr, goal rate is 55 mL/hr. Pt on mechanical ventilator with setting of AC 14 VT 450 FiO2 40% PEEP +5. Informed Dr Santillan that pt is back from acute hospital. Also notified pt's sister Shae.
--- NOTE | 2021-03-01 16:27 | NUR ---
RT NOTE : PATIENT WERE BROUGHT TO SUB ACUTE FROM 3RD FLOOR AROUND 15:50 PM. PATIENT REMAIN ON THE VENTILATOR WITH SETTING OF AC 14, 450, +5, 40%. I WAS INFORMED BY THE ALLYSON RT THAT TRACH CARE WERE DONE ON PATIENT BEFORE TRANSPORTED TO SUB ACUTE. PATIENT WILL CONTINUE TO BE MONITOR.
[2021-03-01] MEDS ORDERED: SODI3VIA16 IH (16:35)
[2021-03-01] MEDS ORDERED: METR500P3 IV (16:35)
[2021-03-01] MEDS ORDERED: ALLA266C2 TP (16:35)
[2021-03-01] MEDS ORDERED: AMIN30LI2 GT (16:35)
[2021-03-01] MEDS ORDERED: ACET650S11 RC (16:35)
[2021-03-01] MEDS ORDERED: CADE40GE2 TP (16:35)
[2021-03-01] MEDS ORDERED: ACETAMINOPHEN 650 MG SUPP.RECT RC PRN (18:00)
--- NOTE | 2021-03-01 18:12 | NUR ---
RT NOTE: ATROVENT AND ALBUTEROL WERE GIVEN TO DUE PATIENT DUE TO ELEVATED RR. SUSTAINABILITY SPECIALIST VANCE NOTIFIED AND ORDER Q4 PRN TREATMENT BY JC PALENCIA. ORDER IS THE NOT IN THE SYSYTEM YET BUT TREATMENT WERE GIVEN. VANCE RN WERE AWARED.
[2021-03-01 18:13] VITALS: BP 117/64
[2021-03-01] MEDS ORDERED: IPRATROPIUM NEB FS 0.5 MG/2.5 ML AMPUL.NEB NEB PRN (18:30)
[2021-03-01] MEDS: ACETAMINOPHEN SUP SA PATIENTS 650 MG SUPP RC PRN (19:01)
[2021-03-01] MEDS: SODIUM CL FOR INHALATION 3% 15 ML VIAL.NEB NEB SCH (19:30)
[2021-03-01] MEDS: METRONIDAZOLE 500MG/ NS 100ML 500 MG in PREMIX 1 EA IV SCH (20:50)
[2021-03-01] MEDS: POVIDONE-IODINE OINT 28.4 GM TUBE TP SCH ×2 (21:16)
[2021-03-01] MEDS: CADEXOMER IODINE 40 GM TUBE TP SCH (21:16)
[2021-03-01] MEDS: VITAMINS A AND D 56.7 GM TUBE TP SCH (21:17)
[2021-03-01] MEDS: LATANOPROST EYE DROP 0.005% 2.5 ML BOTTLE EACHEYE SCH (21:17)
[2021-03-01] MEDS: Z GUARD REMEDY 4 OZ OINT TP SCH (21:17)
--- NOTE | 2021-03-01 21:50 | NUR ---
2150 ADMINISTERED FLAGYL ANTIBIOTIC ORDERED. NO ADVERSE REACTIONS NOTED.
[2021-03-02] MEDS: CEFEPIME 2 GM in IV D5W 100 ML IV SCH ×3 (00:04→23:06)
--- NOTE | 2021-03-02 00:35 | NUR ---
0035 S/P CEFEPIME INFUSION. NO ADVERSE REACTION NOTED. RIGHT UPPER MIDLINE INTACT AND PATENT.
[2021-03-02] MEDS: METRONIDAZOLE 500MG/ NS 100ML 500 MG in PREMIX 1 EA IV SCH (04:45)
[2021-03-02 07:25] VITALS: BP 125/65
[2021-03-02] MEDS: SODIUM CL FOR INHALATION 3% 15 ML VIAL.NEB NEB SCH (07:30)
[2021-03-02] MEDS: POVIDONE-IODINE OINT 28.4 GM TUBE TP SCH ×4 (08:48→21:48)
[2021-03-02] MEDS: PANTOPRAZOLE 40 MG/PACK PACK GT SCH (08:48)
[2021-03-02] MEDS: VITAMINS A AND D 56.7 GM TUBE TP SCH ×3 (08:49→21:49)
[2021-03-02] MEDS: CADEXOMER IODINE 40 GM TUBE TP SCH ×2 (08:49→21:49)
[2021-03-02] MEDS: Z GUARD REMEDY 4 OZ OINT TP SCH ×2 (08:49→21:49)
[2021-03-02] MEDS ORDERED: PANTOPRAZOLE 40 MG/PACK PACK GT SCH (09:00)
[2021-03-02] MEDS: TIMOLOL 0.5% SOLN OPHTH 5 ML BOTTLE EACHEYE SCH ×2 (09:00→17:20)
[2021-03-02] MEDS: PROSOURCE / PROSTAT (PYXIS) 30 ML UDC GT SCH ×3 (09:00→17:21)
--- NOTE | 2021-03-02 09:25 | NUR ---
Asked ANGELLA Porras if pt needs sodium chloride via nebulizer. RT said pt already has moderate amounts of secretions. ANGELLA Porras ordered to DC sodium chloride via nebulizer.
[2021-03-02] MEDS: VANCOMYCIN HCL 0.75 GM in IV D5W 250 ML IV SCH (10:00)
--- NOTE | 2021-03-02 11:00 | NUR ---
Seen by Dr Santillan. He reviewed pt's medications and made new orders.
[2021-03-02] MEDS: ASPIRIN 81 MG TAB.CHEW GT SCH (11:39)
[2021-03-02] MEDS: FERROUS SULFATE - FOR SA ONLY 330 MG/7.5 ML UDC GT SCH ×2 (11:41→17:21)
[2021-03-02] MEDS ORDERED: NA PHOS,M-B/NA PHOS,DI-BA 1 EA ENEMA RC PRN (12:00)
[2021-03-02 12:14] VITALS: BP 113/54
[2021-03-02] MEDS: LORATADINE 10 MG TABLET GT SCH (13:30)
[2021-03-02] MEDS: BICALUTAMIDE 50 MG TABLET GT SCH (13:30)
[2021-03-02] MEDS: BACLOFEN (10 MG) 10 MG TABLET GT SCH (13:30)
[2021-03-02] MEDS: ENOXAPARIN SODIUM 40 MG/0.4 ML DISP.SYRIN SQ SCH (13:30)
[2021-03-02] MEDS: FOLIC ACID 1 MG TABLET GT SCH (13:30)
[2021-03-02] MEDS: METRONIDAZOLE 500 MG TABLET GT SCH ×2 (13:35→21:48)
--- NOTE | 2021-03-02 13:45 | NUR ---
Late entry for 03/01/21 Notified BABY SITTER Jennifer Porras that pt was tachypneic, breathing 35 cpm, O2 sat 97%. She ordered Albuterol and Atrovent q 4 PRN. Pt's breathing improved with breathing treatment, but he became tachypneic again and seemed restless. Acetaminophen given as ordered. Pt's breathing improved and he appeared comfortable.
[2021-03-02 15:50] LABS: CALCIUM, SERUM 7.9 mg/dL (8.5-10.1); POTASSIUM 3.7 mmol/L (3.5-5.1)
[2021-03-02] MEDS: DOCUSATE SODIUM LIQ 100 MG/10 ML UDC GT SCH (17:20)
[2021-03-02 20:28] VITALS: BP 112/67
[2021-03-02] MEDS ORDERED: ENOXAPARIN SODIUM 40 MG/0.4 ML DISP.SYRIN SQ SCH (21:00)
[2021-03-02] MEDS: LATANOPROST EYE DROP 0.005% 2.5 ML BOTTLE EACHEYE SCH (21:49)
[2021-03-02] MEDS: ATORVASTATIN 40 MG TABLET GT SCH (21:49)
[2021-03-03] MEDS: METRONIDAZOLE 500 MG TABLET GT SCH ×3 (05:51→20:41)
[2021-03-03 07:32] VITALS: BP 110/58
[2021-03-03] MEDS: FOLIC ACID 1 MG TABLET GT SCH (08:23)
[2021-03-03] MEDS: LORATADINE 10 MG TABLET GT SCH (08:23)
[2021-03-03] MEDS: PYRIDOXINE HCL 50 MG TABLET GT SCH (08:23)
[2021-03-03] MEDS: BICALUTAMIDE 50 MG TABLET GT SCH (08:23)
[2021-03-03] MEDS: BACLOFEN (10 MG) 10 MG TABLET GT SCH (08:24)
[2021-03-03] MEDS: PANTOPRAZOLE 40 MG/PACK PACK GT SCH (08:25)
[2021-03-03] MEDS: LISINOPRIL (5MG) 5 MG TABLET GT SCH (08:26)
[2021-03-03] MEDS: Z GUARD REMEDY 4 OZ OINT TP SCH ×2 (08:29→21:54)
[2021-03-03] MEDS: ENOXAPARIN SODIUM 40 MG/0.4 ML DISP.SYRIN SQ SCH (08:34)
[2021-03-03] MEDS: ASPIRIN 81 MG TAB.CHEW GT SCH (08:37)
[2021-03-03] MEDS: DOCUSATE SODIUM LIQ 100 MG/10 ML UDC GT SCH ×2 (08:39→16:19)
[2021-03-03] MEDS: PROSOURCE / PROSTAT (PYXIS) 30 ML UDC GT SCH ×3 (08:41→16:19)
[2021-03-03] MEDS: FERROUS SULFATE - FOR SA ONLY 330 MG/7.5 ML UDC GT SCH ×2 (08:44→16:19)
[2021-03-03] MEDS: MULTIVIT W/MINERALS 1 TAB TABLET GT SCH (08:44)
[2021-03-03] MEDS: CADEXOMER IODINE 40 GM TUBE TP SCH ×2 (08:48→21:54)
[2021-03-03] MEDS: POVIDONE-IODINE OINT 28.4 GM TUBE TP SCH ×4 (08:48→21:54)
[2021-03-03] MEDS: VITAMINS A AND D 56.7 GM TUBE TP SCH ×3 (08:49→21:55)
[2021-03-03 09:56] LABS: CALCIUM, SERUM 8.2 mg/dL (8.5-10.1); CREATININE 1.1 mg/dL (0.6-1.3); POTASSIUM 3.6 mmol/L (3.5-5.1)
[2021-03-03 10:00] VITALS: BP 110/58
[2021-03-03] MEDS: TIMOLOL 0.5% SOLN OPHTH 5 ML BOTTLE EACHEYE SCH ×2 (10:40→16:19)
--- NOTE | 2021-03-03 11:15 | NUR ---
MAURICIO contacted the pt.s regional center Kayla [place]LTON TEL: [phone] [email or web address] to discuss regional willow involvement. Kayla stated [facility] contracts Bonifacio gillespie [phone] to manage patients finances. Noted
[2021-03-03] MEDS: VANCOMYCIN HCL 0.75 GM in IV D5W 250 ML IV SCH (11:16)
[2021-03-03 12:00] VITALS: BP 120/58
[2021-03-03] MEDS: ALBUTEROL FS 2.5 MG/0.5 ML VIAL.NEB NEB PRN (12:54)
[2021-03-03] MEDS: IPRATROPIUM HALF ST 0.25 MG/1.25 ML VIAL.NEB NEB PRN (12:54)
[2021-03-03] MEDS: CEFEPIME 2 GM in IV D5W 100 ML IV SCH (13:02)
[2021-03-03 13:50] VITALS: BP 120/59
[2021-03-03] MEDS: JEVITY 1.2 CAL 1,000 ML BOTTLE GT PRN (14:12)
[2021-03-03 19:27] VITALS: BP 114/75
[2021-03-03] MEDS: ACETAMINOPHEN 650 MG/20 ML UDC- SA PATIENTS-FEVER ONLY GT PRN (20:42)
--- NOTE | 2021-03-03 22:14 | NUR ---
Patient had temp of 101.9 beginning of shift.Xenia Zazueta seen and examined patient with new orders to do wound culture of left lateral foot,discontinue Cefefime IV and Flagyl via GT. Start Merrem 500 mg IV every 8 hours x 5 days per protocol for cellulitis. Will carry out orders. Will continue to monitor.
[2021-03-03] MEDS: ATORVASTATIN 40 MG TABLET GT SCH (22:30)
[2021-03-03] MEDS: LATANOPROST EYE DROP 0.005% 2.5 ML BOTTLE EACHEYE SCH (22:41)
[2021-03-03] MEDS ORDERED: MEROPENEM 500 MG VIAL IV ONE (23:25)
[2021-03-03] MEDS: MEROPENEM 500 MG in IV NS 0.9% 50 ML IV SCH (23:25)
--- NOTE | 2021-03-03 23:46 | NUR ---
1st dose of Merrem 500 mg taken from ICU omnicelle.
--- NOTE | 2021-03-03 23:56 | NUR ---
Merrem dose taken from ICU is for 2324 is for 0 dose
[2021-03-04 00:04] VITALS: BP 127/70
[2021-03-04] MEDS ORDERED: MEROPENEM 500 MG VIAL IV ONE (04:50)
--- NOTE | 2021-03-04 05:04 | NUR ---
Merrem dose taken from [facility] for 0500 dose.
[2021-03-04] MEDS: MEROPENEM 500 MG in IV NS 0.9% 50 ML IV SCH ×3 (05:20→21:00)
[2021-03-04] MEDS: MAGNESIUM HYDROXIDE 30 ML UDC GT PRN (06:37)
[2021-03-04 07:13] VITALS: BP 128/69
--- NOTE | 2021-03-04 07:49 | NUR ---
OPENING NOTE PATIENT IS IN BED RESTING, PATIENT IS IN NO ACUTE DISTRESS PATIENT IS ON VENT SATURATING 97% PATIENT IS ON G-TUBE FEEDING. PATIENT HAS A GONCALVES CATHETER SAFETY PRECAUTIONS ARE ON BED IS LOCKED IN THE LOWEST POSITION, WITH SIDE RAILS UP, CALL LIGHT WITHIN REACH.
[2021-03-04] MEDS: TIMOLOL 0.5% SOLN OPHTH 5 ML BOTTLE EACHEYE SCH ×2 (08:29→16:05)
[2021-03-04] MEDS: LORATADINE 10 MG TABLET GT SCH (08:32)
[2021-03-04] MEDS: ASPIRIN 81 MG TAB.CHEW GT SCH (08:32)
[2021-03-04] MEDS: BICALUTAMIDE 50 MG TABLET GT SCH (08:32)
[2021-03-04] MEDS: DOCUSATE SODIUM LIQ 100 MG/10 ML UDC GT SCH ×2 (08:33→16:05)
[2021-03-04] MEDS: FERROUS SULFATE - FOR SA ONLY 330 MG/7.5 ML UDC GT SCH ×2 (08:33→16:08)
[2021-03-04] MEDS: FOLIC ACID 1 MG TABLET GT SCH (08:34)
[2021-03-04] MEDS: BACLOFEN (10 MG) 10 MG TABLET GT SCH (08:35)
[2021-03-04] MEDS: [UNRECOGNIZED DRUG - OTHER] GT SCH (08:36)
[2021-03-04] MEDS: PROSOURCE / PROSTAT (PYXIS) 30 ML UDC GT SCH ×4 (08:37→21:44)
[2021-03-04] MEDS: LISINOPRIL (5MG) 5 MG TABLET GT SCH (08:37)
[2021-03-04] MEDS: PYRIDOXINE HCL 50 MG TABLET GT SCH (08:38)
[2021-03-04] MEDS: PANTOPRAZOLE 40 MG/PACK PACK GT SCH (08:38)
[2021-03-04] MEDS: MULTIVIT W/MINERALS 1 TAB TABLET GT SCH (08:39)
[2021-03-04] MEDS: ENOXAPARIN SODIUM 40 MG/0.4 ML DISP.SYRIN SQ SCH (08:40)
[2021-03-04] MEDS: CADEXOMER IODINE 40 GM TUBE TP SCH ×2 (08:41→21:46)
[2021-03-04] MEDS: POVIDONE-IODINE OINT 28.4 GM TUBE TP SCH ×4 (08:41→21:46)
[2021-03-04] MEDS: VITAMINS A AND D 56.7 GM TUBE TP SCH ×3 (08:42→21:46)
[2021-03-04] MEDS: Z GUARD REMEDY 4 OZ OINT TP SCH ×2 (08:42→21:46)
[2021-03-04 10:00] VITALS: BP 128/69
[2021-03-04] MEDS: VANCOMYCIN HCL 0.75 GM in IV D5W 250 ML IV SCH (10:50)
[2021-03-04 11:52] VITALS: BP 117/69
[2021-03-04 12:36] LABS: CREATININE 1.1 mg/dL (0.6-1.3); POTASSIUM 2.9 mmol/L (3.5-5.1)
[2021-03-04] MEDS: POTASSIUM CL. PREMIX PERIPHER. 50 ML IV SCH ×4 (15:00→20:30)
[2021-03-04] MEDS: ACETAMINOPHEN SUP SA PATIENTS 650 MG SUPP RC PRN (17:00)
[2021-03-04 19:29] VITALS: BP 128/82
[2021-03-04] MEDS: LATANOPROST EYE DROP 0.005% 2.5 ML BOTTLE EACHEYE SCH (21:46)
[2021-03-04] MEDS: ATORVASTATIN 40 MG TABLET GT SCH (21:46)
[2021-03-04] MEDS: BISACODYL SUPP (10 MG) 10 MG/SUPP.RECT SUPP.RECT RC PRN (21:57)
[2021-03-04 23:47] VITALS: BP 98/61
[2021-03-05] MEDS: JEVITY 1.2 CAL 1,000 ML BOTTLE GT PRN ×2 (01:30→21:14)
[2021-03-05] MEDS: MEROPENEM 500 MG in IV NS 0.9% 50 ML IV SCH ×3 (05:11→20:53)
[2021-03-05 07:10] VITALS: BP 135/70
--- NOTE | 2021-03-05 07:24 | NUR ---
WOUND CARE CONSULT: PT SEEN FOR RT BUTTOCK AREA OF DISCOLORATION WITH OPEN BLISTER/LESION WHICH IS DARK RED AND PINK IN COLOR WITH SCANT SEROUS DRAINAGE, NOT ON A BONY AREA. RECOMMEND SURGICAL CONSULT. DR LOPES TO BE CALLED FOR SURGICAL CONSULT. RECOMMENDATIONS MADE FOR SKIN PROTECTION AND WOUND CARE. DISCUSSED WITH NURSING STAFF. [facility] IN AGREEMENT WITH PLAN OF CARE.
[2021-03-05] MEDS: CADEXOMER IODINE 40 GM TUBE TP SCH ×2 (09:00→20:54)
[2021-03-05] MEDS: Z GUARD REMEDY 4 OZ OINT TP SCH ×2 (09:00→20:54)
[2021-03-05] MEDS: POVIDONE-IODINE OINT 28.4 GM TUBE TP SCH ×4 (09:00→20:54)
[2021-03-05] MEDS: VITAMINS A AND D 56.7 GM TUBE TP SCH ×3 (09:00→20:54)
[2021-03-05] MEDS: FOLIC ACID 1 MG TABLET GT SCH (09:21)
[2021-03-05] MEDS: BACLOFEN (10 MG) 10 MG TABLET GT SCH (09:21)
[2021-03-05] MEDS: PROSOURCE / PROSTAT (PYXIS) 30 ML UDC GT SCH ×4 (09:21→20:54)
[2021-03-05] MEDS: BICALUTAMIDE 50 MG TABLET GT SCH (09:21)
[2021-03-05] MEDS: MULTIVIT W/MINERALS 1 TAB TABLET GT SCH (09:21)
[2021-03-05] MEDS: PYRIDOXINE HCL 50 MG TABLET GT SCH (09:21)
[2021-03-05] MEDS: FERROUS SULFATE - FOR SA ONLY 330 MG/7.5 ML UDC GT SCH ×2 (09:21→17:04)
[2021-03-05] MEDS: LORATADINE 10 MG TABLET GT SCH (09:21)
[2021-03-05] MEDS: DOCUSATE SODIUM LIQ 100 MG/10 ML UDC GT SCH ×2 (09:21→17:04)
[2021-03-05] MEDS: ASPIRIN 81 MG TAB.CHEW GT SCH (09:21)
[2021-03-05] MEDS: LISINOPRIL (5MG) 5 MG TABLET GT SCH (09:21)
[2021-03-05] MEDS: PANTOPRAZOLE 40 MG/PACK PACK GT SCH (09:21)
[2021-03-05] MEDS: TIMOLOL 0.5% SOLN OPHTH 5 ML BOTTLE EACHEYE SCH ×2 (09:21→17:04)
[2021-03-05] MEDS: ENOXAPARIN SODIUM 40 MG/0.4 ML DISP.SYRIN SQ SCH (09:22)
[2021-03-05] MEDS: VANCOMYCIN HCL 0.75 GM in IV D5W 250 ML IV SCH ×2 (10:00→21:49)
--- NOTE | 2021-03-05 10:26 | NUR ---
Vancomycin IV 750 mg held d/t elevated Vanco trough level- 22, [facility] pharmacist Srinath informed.
[2021-03-05 12:52] LABS: CALCIUM, SERUM 8.1 mg/dL (8.5-10.1); POTASSIUM 4.1 mmol/L (3.5-5.1)
[2021-03-05 13:04] VITALS: BP 111/74
--- NOTE | 2021-03-05 15:03 | NUR ---
BMP result relayed to Jennifer Porras, new order given, repeat BMP on Monday03/08/21.
--- NOTE | 2021-03-05 16:30 | NUR ---
Seen and examined by BRITTNI Nobles, no new order given.
[2021-03-05 19:17] VITALS: BP 113/64
[2021-03-05] MEDS: ATORVASTATIN 40 MG TABLET GT SCH (21:01)
[2021-03-05] MEDS: LATANOPROST EYE DROP 0.005% 2.5 ML BOTTLE EACHEYE SCH (21:01)
[2021-03-06 01:25] VITALS: BP 112/58
[2021-03-06] MEDS: MEROPENEM 500 MG in IV NS 0.9% 50 ML IV SCH ×3 (05:19→20:55)
[2021-03-06 07:29] VITALS: BP 94/54
[2021-03-06] MEDS: LISINOPRIL (5MG) 5 MG TABLET GT SCH (09:00)
[2021-03-06] MEDS: [UNRECOGNIZED DRUG - OTHER] GT SCH (09:13)
[2021-03-06] MEDS: FOLIC ACID 1 MG TABLET GT SCH (09:13)
[2021-03-06] MEDS: FERROUS SULFATE - FOR SA ONLY 330 MG/7.5 ML UDC GT SCH ×2 (09:13→17:00)
[2021-03-06] MEDS: ASPIRIN 81 MG TAB.CHEW GT SCH (09:13)
[2021-03-06] MEDS: LORATADINE 10 MG TABLET GT SCH (09:13)
[2021-03-06] MEDS: DOCUSATE SODIUM LIQ 100 MG/10 ML UDC GT SCH ×2 (09:13→17:00)
[2021-03-06] MEDS: BICALUTAMIDE 50 MG TABLET GT SCH (09:13)
[2021-03-06] MEDS: TIMOLOL 0.5% SOLN OPHTH 5 ML BOTTLE EACHEYE SCH ×2 (09:13→17:00)
[2021-03-06] MEDS: BACLOFEN (10 MG) 10 MG TABLET GT SCH (09:13)
[2021-03-06] MEDS: PROSOURCE / PROSTAT (PYXIS) 30 ML UDC GT SCH ×4 (09:14→20:14)
[2021-03-06] MEDS: PYRIDOXINE HCL 50 MG TABLET GT SCH (09:14)
[2021-03-06] MEDS: PANTOPRAZOLE 40 MG/PACK PACK GT SCH (09:14)
[2021-03-06] MEDS: MULTIVIT W/MINERALS 1 TAB TABLET GT SCH (09:14)
[2021-03-06] MEDS: CADEXOMER IODINE 40 GM TUBE TP SCH ×2 (09:15→21:00)
[2021-03-06] MEDS: ENOXAPARIN SODIUM 40 MG/0.4 ML DISP.SYRIN SQ SCH (09:15)
[2021-03-06] MEDS: POVIDONE-IODINE OINT 28.4 GM TUBE TP SCH ×4 (09:15→21:00)
[2021-03-06] MEDS: Z GUARD REMEDY 4 OZ OINT TP SCH ×2 (09:16→20:15)
[2021-03-06] MEDS: VITAMINS A AND D 56.7 GM TUBE TP SCH ×3 (09:16→20:15)
[2021-03-06 13:21] LABS: CALCIUM, SERUM 7.8 mg/dL (8.5-10.1); POTASSIUM 3.9 mmol/L (3.5-5.1)
[2021-03-06 13:27] VITALS: BP 98/66
--- NOTE | 2021-03-06 18:57 | NUR ---
Left a message to Dr. Santillan regarding noted patient's increased heart rate ranging from 110-117. Highest heart rate noted from RT's notes to be 120 at 1621. End of shift vital signs are as follows: BP 110/66 mmHg, HR 114, Resp Rate 12. Also verified if MD reviewed right foot wound culture. Awaiting if any further order/instructions. Endorsed to incoming shiftman nurse ROSALINDA Romero.
[2021-03-06] MEDS: ACETAMINOPHEN 650 MG/20 ML UDC- SA PATIENTS-FEVER ONLY GT PRN (19:30)
[2021-03-06 19:52] VITALS: BP 111/67
[2021-03-06] MEDS: HYDROGEN PEROXIDE 480 ML BOTTLE TP SCH (21:00)
[2021-03-06] MEDS: LATANOPROST EYE DROP 0.005% 2.5 ML BOTTLE EACHEYE SCH (22:00)
[2021-03-06] MEDS: ATORVASTATIN 40 MG TABLET GT SCH (22:00)
[2021-03-07] VITALS: BP 108/63
[2021-03-07] MEDS: MEROPENEM 500 MG in IV NS 0.9% 50 ML IV SCH ×3 (05:32→21:17)
[2021-03-07 08:00] VITALS: BP 108/67
[2021-03-07] MEDS: TIMOLOL 0.5% SOLN OPHTH 5 ML BOTTLE EACHEYE SCH ×2 (08:44→16:30)
[2021-03-07] MEDS: ASPIRIN 81 MG TAB.CHEW GT SCH (08:45)
[2021-03-07] MEDS: FERROUS SULFATE - FOR SA ONLY 330 MG/7.5 ML UDC GT SCH ×2 (08:48→16:31)
[2021-03-07] MEDS: DOCUSATE SODIUM LIQ 100 MG/10 ML UDC GT SCH ×2 (08:48→16:31)
[2021-03-07] MEDS: MULTIVIT W/MINERALS 1 TAB TABLET GT SCH (08:49)
[2021-03-07] MEDS: PROSOURCE / PROSTAT (PYXIS) 30 ML UDC GT SCH ×4 (08:49→21:28)
[2021-03-07] MEDS: FOLIC ACID 1 MG TABLET GT SCH (08:54)
[2021-03-07] MEDS: PYRIDOXINE HCL 50 MG TABLET GT SCH (08:55)
[2021-03-07] MEDS: BICALUTAMIDE 50 MG TABLET GT SCH (08:55)
[2021-03-07] MEDS: LISINOPRIL (5MG) 5 MG TABLET GT SCH (08:55)
[2021-03-07] MEDS: PANTOPRAZOLE 40 MG/PACK PACK GT SCH (08:55)
[2021-03-07] MEDS: LORATADINE 10 MG TABLET GT SCH (08:55)
[2021-03-07] MEDS: BACLOFEN (10 MG) 10 MG TABLET GT SCH (08:55)
[2021-03-07] MEDS: POVIDONE-IODINE OINT 28.4 GM TUBE TP SCH ×4 (08:56→21:28)
[2021-03-07] MEDS: ENOXAPARIN SODIUM 40 MG/0.4 ML DISP.SYRIN SQ SCH (08:56)
[2021-03-07] MEDS: Z GUARD REMEDY 4 OZ OINT TP SCH ×2 (08:59→21:28)
[2021-03-07] MEDS: VITAMINS A AND D 56.7 GM TUBE TP SCH ×3 (08:59→21:29)
[2021-03-07] MEDS: CADEXOMER IODINE 40 GM TUBE TP SCH ×2 (09:00→21:28)
[2021-03-07] MEDS: ACETAMINOPHEN 650 MG/20 ML UDC- SA PATIENTS-FEVER ONLY GT PRN (09:04)
[2021-03-07] MEDS: HYDROGEN PEROXIDE 480 ML BOTTLE TP SCH ×2 (09:25→21:00)
--- NOTE | 2021-03-07 10:07 | NUR ---
Sent message to CHIEF OPERATOR REFORMER Xenia Zazueta regarding resident elevated temp. 101.7F, gave order to do urine culture and blood culture, carried out. She also asked to follow up with Diamond Wheel Molder for possible debridement of patient's wound. Will continue to monitor.
--- NOTE | 2021-03-07 10:08 | NUR ---
Pt noted with elevated temp of 101.7F this morning, Tylenol 650mg via G-tube administered. Cooling measures provided and maintained. Dr Santillan visited pt and reported regarding pt high HR and elevated temp with order to f/u with ID.
--- NOTE | 2021-03-07 10:18 | NUR ---
Re-checked temp, 992F now. Will continue to monitor.
[2021-03-07] MEDS: VANCOMYCIN HCL 0.75 GM in IV D5W 250 ML IV SCH (11:50)
--- NOTE | 2021-03-07 11:50 | NUR ---
Urine specimen collected for culture. Called lab to pick-up specimen and do blood culture.
[2021-03-07 14:09] LABS: CALCIUM, SERUM 7.9 mg/dL (8.5-10.1); CREATININE 1.1 mg/dL (0.6-1.3)
--- NOTE | 2021-03-07 16:00 | NUR ---
Routine trach changed by RT Marshall, minimal bleeding noted, no signs of distress, will continue to monitor.
[2021-03-07 21:27] VITALS: BP 110/69
[2021-03-07] MEDS: ATORVASTATIN 40 MG TABLET GT SCH (21:29)
[2021-03-07] MEDS: LATANOPROST EYE DROP 0.005% 2.5 ML BOTTLE EACHEYE SCH (21:29)
[2021-03-08] MEDS: MEROPENEM 500 MG in IV NS 0.9% 50 ML IV SCH ×3 (05:00→20:36)
[2021-03-08 07:33] VITALS: BP 105/61
[2021-03-08] MEDS: HYDROGEN PEROXIDE 480 ML BOTTLE TP SCH ×2 (08:15→21:00)
[2021-03-08 08:30] LABS: CALCIUM, SERUM 8.1 mg/dL (8.5-10.1); CREATININE 1.1 mg/dL (0.6-1.3); POTASSIUM 4.3 mmol/L (3.5-5.1)
[2021-03-08] MEDS ORDERED: PNEUMOCOCCAL 23-VAL P-SAC VAC 0.5 ML VIAL IM ONE (09:00)
[2021-03-08] MEDS: DOCUSATE SODIUM LIQ 100 MG/10 ML UDC GT SCH ×2 (09:00→16:28)
[2021-03-08] MEDS: TIMOLOL 0.5% SOLN OPHTH 5 ML BOTTLE EACHEYE SCH ×2 (09:00→16:28)
[2021-03-08] MEDS: PANTOPRAZOLE 40 MG/PACK PACK GT SCH (09:00)
[2021-03-08] MEDS: PYRIDOXINE HCL 50 MG TABLET GT SCH (09:00)
[2021-03-08] MEDS: BACLOFEN (10 MG) 10 MG TABLET GT SCH (09:00)
[2021-03-08] MEDS: [UNRECOGNIZED DRUG - OTHER] GT SCH (09:00)
[2021-03-08] MEDS: POVIDONE-IODINE OINT 28.4 GM TUBE TP SCH ×4 (09:00→21:29)
[2021-03-08] MEDS: ENOXAPARIN SODIUM 40 MG/0.4 ML DISP.SYRIN SQ SCH (09:00)
[2021-03-08] MEDS: FERROUS SULFATE - FOR SA ONLY 330 MG/7.5 ML UDC GT SCH ×2 (09:00→16:28)
[2021-03-08] MEDS: VITAMINS A AND D 56.7 GM TUBE TP SCH ×3 (09:00→21:30)
[2021-03-08] MEDS: Z GUARD REMEDY 4 OZ OINT TP SCH ×2 (09:00→21:30)
[2021-03-08] MEDS: FOLIC ACID 1 MG TABLET GT SCH (09:00)
[2021-03-08] MEDS: PROSOURCE / PROSTAT (PYXIS) 30 ML UDC GT SCH ×4 (09:00→21:29)
[2021-03-08] MEDS: MULTIVIT W/MINERALS 1 TAB TABLET GT SCH (09:00)
[2021-03-08] MEDS: LISINOPRIL (5MG) 5 MG TABLET GT SCH (09:00)
[2021-03-08] MEDS: BICALUTAMIDE 50 MG TABLET GT SCH (09:00)
[2021-03-08] MEDS: ASPIRIN 81 MG TAB.CHEW GT SCH (09:00)
[2021-03-08] MEDS: LORATADINE 10 MG TABLET GT SCH (09:00)
[2021-03-08] MEDS: CADEXOMER IODINE 40 GM TUBE TP SCH ×2 (09:00→21:30)
--- NOTE | 2021-03-08 10:44 | NUR ---
Facility Update: notified family via [employer] Text that, " Facility Update: No [facility] Sub-Acute residents or employees tested positive for COVID-19 this week. [facility] continues to test Sub-Acute residents & healthcare personnel as recommended by [facility]. [facility] continues to follow infection control protocols and screen our residents and staff daily for symptoms".
[2021-03-08] MEDS: ACETAMINOPHEN SUP SA PATIENTS 650 MG SUPP RC PRN (16:50)
[2021-03-08 16:52] VITALS: BP 109/69
[2021-03-08 20:04] VITALS: BP 117/67
[2021-03-08] MEDS: ATORVASTATIN 40 MG TABLET GT SCH (21:31)
[2021-03-08] MEDS: LATANOPROST EYE DROP 0.005% 2.5 ML BOTTLE EACHEYE SCH (21:31)
[2021-03-08] MEDS: VANCOMYCIN HCL 0.75 GM in IV D5W 250 ML IV SCH (22:24)
[2021-03-09] MEDS: HYDROGEN PEROXIDE 480 ML BOTTLE TP SCH ×2 (08:08→21:00)
[2021-03-09] MEDS: Z GUARD REMEDY 4 OZ OINT TP SCH ×2 (09:00→21:48)
[2021-03-09] MEDS: DOCUSATE SODIUM LIQ 100 MG/10 ML UDC GT SCH ×2 (09:00→17:17)
[2021-03-09] MEDS: POVIDONE-IODINE OINT 28.4 GM TUBE TP SCH ×4 (09:00→21:48)
[2021-03-09] MEDS: LORATADINE 10 MG TABLET GT SCH (09:00)
[2021-03-09] MEDS: FERROUS SULFATE - FOR SA ONLY 330 MG/7.5 ML UDC GT SCH ×2 (09:00→17:17)
[2021-03-09] MEDS: PANTOPRAZOLE 40 MG/PACK PACK GT SCH (09:00)
[2021-03-09] MEDS: MULTIVIT W/MINERALS 1 TAB TABLET GT SCH (09:00)
[2021-03-09] MEDS: LISINOPRIL (5MG) 5 MG TABLET GT SCH (09:00)
[2021-03-09] MEDS: CADEXOMER IODINE 40 GM TUBE TP SCH ×2 (09:00→21:48)
[2021-03-09] MEDS: FOLIC ACID 1 MG TABLET GT SCH (09:00)
[2021-03-09] MEDS: ENOXAPARIN SODIUM 40 MG/0.4 ML DISP.SYRIN SQ SCH (09:00)
[2021-03-09] MEDS: ASPIRIN 81 MG TAB.CHEW GT SCH (09:00)
[2021-03-09] MEDS: BACLOFEN (10 MG) 10 MG TABLET GT SCH (09:00)
[2021-03-09] MEDS: TIMOLOL 0.5% SOLN OPHTH 5 ML BOTTLE EACHEYE SCH ×2 (09:00→17:17)
[2021-03-09] MEDS: BICALUTAMIDE 50 MG TABLET GT SCH (09:00)
[2021-03-09] MEDS: VITAMINS A AND D 56.7 GM TUBE TP SCH ×3 (09:00→21:48)
[2021-03-09] MEDS: PROSOURCE / PROSTAT (PYXIS) 30 ML UDC GT SCH ×4 (09:00→21:47)
[2021-03-09] MEDS: PYRIDOXINE HCL 50 MG TABLET GT SCH (09:00)
[2021-03-09] MEDS: MEROPENEM 500 MG in IV NS 0.9% 50 ML IV SCH ×2 (13:00→20:04)
--- NOTE | 2021-03-09 17:51 | NUR ---
Clarified pt's left lateral hindfoot wound. Pt was admitted with an unstageable wound on the left lateral hindfoot. Dr Kayla Espinosa debrided the wound when he was at the acute hospital according to report. Wound noted with eschar upon admission.
[2021-03-09 19:11] VITALS: BP 109/65
[2021-03-09 19:40] VITALS: BP 105/54
[2021-03-09] MEDS: ATORVASTATIN 40 MG TABLET GT SCH (21:48)
[2021-03-09] MEDS: LATANOPROST EYE DROP 0.005% 2.5 ML BOTTLE EACHEYE SCH (21:48)
[2021-03-10] MEDS: MEROPENEM 500 MG in IV NS 0.9% 50 ML IV SCH ×3 (04:37→21:00)
[2021-03-10 07:23] VITALS: BP 107/60
[2021-03-10] MEDS: HYDROGEN PEROXIDE 480 ML BOTTLE TP SCH ×2 (08:31→19:44)
[2021-03-10] MEDS: BICALUTAMIDE 50 MG TABLET GT SCH (09:29)
[2021-03-10] MEDS: DOCUSATE SODIUM LIQ 100 MG/10 ML UDC GT SCH ×2 (09:29→17:00)
[2021-03-10] MEDS: LORATADINE 10 MG TABLET GT SCH (09:29)
[2021-03-10] MEDS: ASPIRIN 81 MG TAB.CHEW GT SCH (09:29)
[2021-03-10] MEDS: TIMOLOL 0.5% SOLN OPHTH 5 ML BOTTLE EACHEYE SCH ×2 (09:29→17:00)
[2021-03-10] MEDS: PYRIDOXINE HCL 50 MG TABLET GT SCH (09:30)
[2021-03-10] MEDS: MULTIVIT W/MINERALS 1 TAB TABLET GT SCH (09:30)
[2021-03-10] MEDS: PANTOPRAZOLE 40 MG/PACK PACK GT SCH (09:30)
[2021-03-10] MEDS: FERROUS SULFATE - FOR SA ONLY 330 MG/7.5 ML UDC GT SCH ×2 (09:30→17:00)
[2021-03-10] MEDS: FOLIC ACID 1 MG TABLET GT SCH (09:30)
[2021-03-10] MEDS: [UNRECOGNIZED DRUG - OTHER] GT SCH (09:30)
[2021-03-10] MEDS: LISINOPRIL (5MG) 5 MG TABLET GT SCH (09:30)
[2021-03-10] MEDS: ENOXAPARIN SODIUM 40 MG/0.4 ML DISP.SYRIN SQ SCH (09:30)
[2021-03-10] MEDS: PROSOURCE / PROSTAT (PYXIS) 30 ML UDC GT SCH ×4 (09:30→21:28)
[2021-03-10] MEDS: BACLOFEN (10 MG) 10 MG TABLET GT SCH (09:30)
[2021-03-10] MEDS: CADEXOMER IODINE 40 GM TUBE TP SCH ×2 (09:31→21:29)
[2021-03-10] MEDS: VITAMINS A AND D 56.7 GM TUBE TP SCH ×3 (09:31→21:29)
[2021-03-10] MEDS: POVIDONE-IODINE OINT 28.4 GM TUBE TP SCH ×4 (09:31→21:28)
[2021-03-10] MEDS: Z GUARD REMEDY 4 OZ OINT TP SCH ×2 (09:31→21:29)
[2021-03-10] MEDS: VANCOMYCIN HCL 0.75 GM in IV D5W 250 ML IV SCH (10:00)
[2021-03-10 15:40] VITALS: BP 107/60
[2021-03-10] MEDS: ONDANSETRON 4 MG TAB.RAPDIS GT PRN (16:32)
[2021-03-10 16:47] LABS: CALCIUM, SERUM 8.4 mg/dL (8.5-10.1)
[2021-03-10] MEDS: JEVITY 1.2 CAL 1,000 ML BOTTLE GT PRN (18:15)
--- NOTE | 2021-03-10 18:45 | NUR ---
Notified Dr. Santillan that patient had one time episode of vomiting, large amount undigested formula. suctioned trach and mouth, no signs of aspiration noted. Reported that patient's HR has been >110 beats/ minute, O2 sat 95-100%. Bowel movement regular. New order given to hold GT feeding for 24 hours and get KUB. Dr. Santillan said that patient was seen by Dr. Cartagena, joint yarner and aware of elevated HR, but no additional orders given. Spoke with patient's sister Shae informing her of change in condition. She was also updated of patient's wounds and new wound/redness in the R posterior lower leg noted during treatment today. Informed her of the size and description of each wound. She requested to speak with one of the doctors who is following the patient's wound in the lower extremity and R hip. Endorsed.
[2021-03-10] MEDS: ACETAMINOPHEN 650 MG/20 ML UDC- SA PATIENTS-FEVER ONLY GT PRN (19:12)
[2021-03-10 19:25] VITALS: BP 107/57
--- NOTE | 2021-03-10 20:00 | NUR ---
Received an order from to start 1/2 NS 80 ml/hr for hydration while gt feeding on hold.Notified also regarding increased HR. Will continue to monitor.
[2021-03-10] MEDS: IV 1/2NS 1000 ML 1,000 ML IV PRN (20:49)
[2021-03-10] MEDS: LATANOPROST EYE DROP 0.005% 2.5 ML BOTTLE EACHEYE SCH (21:29)
[2021-03-10] MEDS: ATORVASTATIN 40 MG TABLET GT SCH (21:29)
--- NOTE | 2021-03-10 22:30 | NUR ---
Patient HR down 102-105, comfortable,no emesis noted. HOB elevated. Will continue to monitor.
[2021-03-10] MEDS: ACETAMINOPHEN SUP SA PATIENTS 650 MG SUPP RC PRN (23:35)
[2021-03-11] MEDS: MEROPENEM 500 MG in IV NS 0.9% 50 ML IV SCH ×3 (05:28→21:11)
[2021-03-11] MEDS: IV 1/2NS 1000 ML 1,000 ML IV PRN ×2 (05:30→19:35)
--- NOTE | 2021-03-11 06:13 | NUR ---
Patient given Bisacodyl supp rectally for constipation seen on the KUB report. Will endorse to continue to monitor.
[2021-03-11] MEDS: BISACODYL SUPP (10 MG) 10 MG/SUPP.RECT SUPP.RECT RC PRN (06:33)
[2021-03-11 07:32] VITALS: BP 121/73
[2021-03-11] MEDS: HYDROGEN PEROXIDE 480 ML BOTTLE TP SCH ×2 (08:39→19:37)
[2021-03-11] MEDS: PANTOPRAZOLE 40 MG/PACK PACK GT SCH (08:57)
[2021-03-11] MEDS: FERROUS SULFATE - FOR SA ONLY 330 MG/7.5 ML UDC GT SCH ×2 (08:57→16:39)
[2021-03-11] MEDS: DOCUSATE SODIUM LIQ 100 MG/10 ML UDC GT SCH ×2 (08:57→16:39)
[2021-03-11] MEDS: LORATADINE 10 MG TABLET GT SCH (08:57)
[2021-03-11] MEDS: PYRIDOXINE HCL 50 MG TABLET GT SCH (08:57)
[2021-03-11] MEDS: TIMOLOL 0.5% SOLN OPHTH 5 ML BOTTLE EACHEYE SCH ×2 (08:57→16:39)
[2021-03-11] MEDS: PROSOURCE / PROSTAT (PYXIS) 30 ML UDC GT SCH ×4 (08:57→21:22)
[2021-03-11] MEDS: ASPIRIN 81 MG TAB.CHEW GT SCH (08:57)
[2021-03-11] MEDS: BACLOFEN (10 MG) 10 MG TABLET GT SCH (08:57)
[2021-03-11] MEDS: LISINOPRIL (5MG) 5 MG TABLET GT SCH (08:57)
[2021-03-11] MEDS: MULTIVIT W/MINERALS 1 TAB TABLET GT SCH (08:57)
[2021-03-11] MEDS: BICALUTAMIDE 50 MG TABLET GT SCH (08:57)
[2021-03-11] MEDS: FOLIC ACID 1 MG TABLET GT SCH (08:57)
[2021-03-11] MEDS: ENOXAPARIN SODIUM 40 MG/0.4 ML DISP.SYRIN SQ SCH (08:58)
[2021-03-11] MEDS: POVIDONE-IODINE OINT 28.4 GM TUBE TP SCH ×4 (09:02→21:22)
[2021-03-11] MEDS: CADEXOMER IODINE 40 GM TUBE TP SCH ×2 (09:02→21:22)
[2021-03-11] MEDS: Z GUARD REMEDY 4 OZ OINT TP SCH ×2 (09:02→21:22)
[2021-03-11] MEDS: VITAMINS A AND D 56.7 GM TUBE TP SCH ×3 (09:03→21:22)
--- NOTE | 2021-03-11 11:00 | NUR ---
Relayed KUB result to Dr Santillan. Pt has not vomited since last night. No new order at this time.
--- NOTE | 2021-03-11 13:00 | NUR ---
Seen by Dr Kayla Espinosa. She examined pt's wounds on the lower extremities. She said she might order an arterial Doppler to check for blood flow in the lower extremities. Received order to apply Xeroform dressing and Mepilex foam dressing on pt's right posterior leg wound. Addendum: 03/11/21 at 16[address] RN Dr Espinosa examined pt's left lateral hindfoot wound and classified it as an unstageable wound due to presence of eschar. She said right heel DTI is now unstageable.
[2021-03-11 13:49] VITALS: BP 136/71
--- NOTE | 2021-03-11 14:10 | NUR ---
Seen by BRITTNI Clark. She clarified that right buttock open blister/discoloration/lesion is actually a right hip unstageable wound. She said to apply oil emulsion dressing and cover with Mepilex foam dressing.
[2021-03-11 15:14] LABS: CALCIUM, SERUM 8.4 mg/dL (8.5-10.1); POTASSIUM 3.9 mmol/L (3.5-5.1)
--- NOTE | 2021-03-11 16:10 | NUR ---
Noted blood-tinged urine. Pt's temp 99 F. Notified TOLL GATE TENDER Jennifer Porras. She said she will see pt later today.
[2021-03-11 18:27] LABS: BILIRUBIN,URINE NEGATIVE (NEGATIVE); COLOR,URINE ORANGE (YELLOW); LEUKOCYTE ESTERASE ,URINE MODERATE (NEGATIVE); NITRITE, URINE NEGATIVE (NEGATIVE); PH,URINE 7.5 (5.0-8.0); PROTEIN,URINE 100 mg/dl (NEGATIVE); UGLUCOSE NEGATIVE (NEGATIVE)
[2021-03-11 19:00] LABS: BACTERIA,URINE 2+ /HPF (None Seen); RBC,URINE TOO NUMEROUS TO COUN /HPF (0-2); SQUAMOUS EPITHELIAL CELL,UR 0-2 /HPF (None Seen); WBC,URINE 21-50 /HPF (0-3)
[2021-03-11 19:17] VITALS: BP 119/60
[2021-03-11] MEDS: JEVITY 1.2 CAL 1,000 ML BOTTLE GT PRN (19:57)
[2021-03-11] MEDS: ACETAMINOPHEN 650 MG/20 ML UDC- SA PATIENTS-FEVER ONLY GT PRN (19:59)
--- NOTE | 2021-03-11 20:10 | NUR ---
Called sister Shae to give an update regarding patient condition and new orders from MD. Notified her that patient having blood tinged urine, order urine culture and hold Lovenox injection d/t bleeding.Informed also that we will start the GT feeding in low rate and check if he will tolerate it and continue the IV hydration.Also told her that wound doctor seen patient today and gave new treatment order for the wound. She said want to speak to them next time they seen patient.Appreciative of the call.
[2021-03-11] MEDS: LATANOPROST EYE DROP 0.005% 2.5 ML BOTTLE EACHEYE SCH (21:22)
[2021-03-11] MEDS: ATORVASTATIN 40 MG TABLET GT SCH (21:22)
[2021-03-11] MEDS: VANCOMYCIN HCL 0.75 GM in IV D5W 250 ML IV SCH (22:42)
[2021-03-12 00:19] VITALS: BP 104/68
[2021-03-12] MEDS: MEROPENEM 500 MG in IV NS 0.9% 50 ML IV SCH ×3 (05:14→21:00)
--- NOTE | 2021-03-12 05:16 | NUR ---
Patient GT feeding increased to 30ml /hr from 20ml last nigh.No emesis noted. Will continue to monitor.Patient still with temp of 100.0 cooling measures provided.
[2021-03-12 07:33] VITALS: BP 132/90
--- NOTE | 2021-03-12 07:39 | NUR ---
WOUND CARE CONSULT: RECEIVED CONSULT FOR RT LOWER LEG. PT IS FOLLOWED BY PODIATRY AND SURGICAL TEAMS FOR WOUNDS. DEFER TO SURGICAL TEAMS FOR WOUND TREATMENT. ALL SKIN PROTECTION MEASURES IN PLACE AND DISCUSSED WITH NURSING STAFF. MD IN AGREEMENT WITH PLAN OF CARE.
[2021-03-12] MEDS: HYDROGEN PEROXIDE 480 ML BOTTLE TP SCH ×2 (08:06→20:31)
[2021-03-12] MEDS: BICALUTAMIDE 50 MG TABLET GT SCH (09:37)
[2021-03-12] MEDS: DOCUSATE SODIUM LIQ 100 MG/10 ML UDC GT SCH ×2 (09:37→17:05)
[2021-03-12] MEDS: FERROUS SULFATE - FOR SA ONLY 330 MG/7.5 ML UDC GT SCH ×2 (09:37→17:05)
[2021-03-12] MEDS: TIMOLOL 0.5% SOLN OPHTH 5 ML BOTTLE EACHEYE SCH ×2 (09:37→17:05)
[2021-03-12] MEDS: [UNRECOGNIZED DRUG - OTHER] GT SCH (09:37)
[2021-03-12] MEDS: FOLIC ACID 1 MG TABLET GT SCH (09:37)
[2021-03-12] MEDS: BACLOFEN (10 MG) 10 MG TABLET GT SCH (09:37)
[2021-03-12] MEDS: ASPIRIN 81 MG TAB.CHEW GT SCH (09:37)
[2021-03-12] MEDS: LORATADINE 10 MG TABLET GT SCH (09:37)
[2021-03-12] MEDS: PANTOPRAZOLE 40 MG/PACK PACK GT SCH (09:38)
[2021-03-12] MEDS: PROSOURCE / PROSTAT (PYXIS) 30 ML UDC GT SCH ×4 (09:38→21:54)
[2021-03-12] MEDS: LISINOPRIL (5MG) 5 MG TABLET GT SCH (09:38)
[2021-03-12] MEDS: Z GUARD REMEDY 4 OZ OINT TP SCH ×2 (09:38→21:00)
[2021-03-12] MEDS: MULTIVIT W/MINERALS 1 TAB TABLET GT SCH (09:38)
[2021-03-12] MEDS: CADEXOMER IODINE 40 GM TUBE TP SCH ×2 (09:38→21:00)
[2021-03-12] MEDS: POVIDONE-IODINE OINT 28.4 GM TUBE TP SCH ×4 (09:38→21:00)
[2021-03-12] MEDS: PYRIDOXINE HCL 50 MG TABLET GT SCH (09:38)
[2021-03-12] MEDS: VITAMINS A AND D 56.7 GM TUBE TP SCH ×3 (09:39→21:00)
[2021-03-12] MEDS: DAKINS QUARTER STRENGTH (0.125%) 480 ML BOTTLE TOP SCH (10:00)
--- NOTE | 2021-03-12 10:07 | NUR ---
WOUND CARE FOLLOW UP: PT SEEN FOR RT HIP DEEP TISSUE INJURY IN EVOLUTION. (PT PREVIOUSLY NOTED TO HAVE DISCOLORATION TO THIS AREA WITH EXCORIATION). WOUND MEASURES 5CM X 9CM X UTD. WOUND BED CHANGES NOTED TO INCLUDE YELLOW AND BROWN NECROTIC TISSUE AND PINK TISSUE TO OUTER PORTIONS. SEROUS DRAINAGE NOTED, NO ODOR. SOME INDURATION NOTED. DISCUSSED WITH ELIUD HERNANDEZ CURRENTLY ON CASE. WOUND TREATMENT ORDERS UPDATED AND DISCUSSED WITH NURSING STAFF AND ILLUMINATOR. ALL SKIN PROTECTION MEASURES IN PLACE. PT IS ON FIRST STEP LACI LOW AIRLOSS MATTRESS. IN AGREEMENT WITH PLAN OF CARE.
[2021-03-12] MEDS: IV 1/2NS 1000 ML 1,000 ML IV PRN ×2 (11:55→12:16)
[2021-03-12 13:39] VITALS: BP 136/94
--- NOTE | 2021-03-12 15:30 | NUR ---
Patient's manager rn case Maciej participated in the IDT meeting via phone conference. Reviewed current and new orders, including medications and treatment orders with MD Maciej and the rest of the team It was mentioned that patient has R hip wound and multiple skin problems in the lower extremities with necrotic/slough tissue that is increasing in size. It was suggested to Ms. Wing to request to see current wound photos on her next visit to update her report to the Regional office. No new order given by Dr. Sullivan. Patient currently tolerating GT feeding at a lower rate, IVF continue. She said that patient's constipation has been a chronic problem of his.
[2021-03-12 15:33] LABS: CALCIUM, SERUM 8.3 mg/dL (8.5-10.1); CREATININE 0.9 mg/dL (0.6-1.3); POTASSIUM 4.6 mmol/L (3.5-5.1)
[2021-03-12 19:08] VITALS: BP 114/63
[2021-03-12] MEDS: ATORVASTATIN 40 MG TABLET GT SCH (22:04)
[2021-03-12] MEDS: LATANOPROST EYE DROP 0.005% 2.5 ML BOTTLE EACHEYE SCH (22:04)
[2021-03-12 23:56] VITALS: BP 113/61
[2021-03-13] MEDS: JEVITY 1.2 CAL 1,000 ML BOTTLE GT PRN (00:57)
[2021-03-13] MEDS: MEROPENEM 500 MG in IV NS 0.9% 50 ML IV SCH ×4 (01:33→21:44)
[2021-03-13 07:25] VITALS: BP 118/68
[2021-03-13] MEDS: HYDROGEN PEROXIDE 480 ML BOTTLE TP SCH ×2 (08:17→19:48)
[2021-03-13] MEDS: TIMOLOL 0.5% SOLN OPHTH 5 ML BOTTLE EACHEYE SCH ×2 (08:24→16:29)
[2021-03-13] MEDS: ASPIRIN 81 MG TAB.CHEW GT SCH (08:24)
[2021-03-13] MEDS: LORATADINE 10 MG TABLET GT SCH (08:26)
[2021-03-13] MEDS: BICALUTAMIDE 50 MG TABLET GT SCH (08:26)
[2021-03-13] MEDS: FOLIC ACID 1 MG TABLET GT SCH (08:27)
[2021-03-13] MEDS: DOCUSATE SODIUM LIQ 100 MG/10 ML UDC GT SCH ×2 (08:27→16:29)
[2021-03-13] MEDS: FERROUS SULFATE - FOR SA ONLY 330 MG/7.5 ML UDC GT SCH ×2 (08:27→16:29)
[2021-03-13] MEDS: BACLOFEN (10 MG) 10 MG TABLET GT SCH (08:27)
[2021-03-13] MEDS: DAKINS QUARTER STRENGTH (0.125%) 480 ML BOTTLE TOP SCH (08:27)
[2021-03-13] MEDS: MULTIVIT W/MINERALS 1 TAB TABLET GT SCH (08:27)
[2021-03-13] MEDS: LISINOPRIL (5MG) 5 MG TABLET GT SCH (08:27)
[2021-03-13] MEDS: PROSOURCE / PROSTAT (PYXIS) 30 ML UDC GT SCH ×4 (08:27→21:38)
[2021-03-13] MEDS: Z GUARD REMEDY 4 OZ OINT TP SCH ×2 (08:27→21:42)
[2021-03-13] MEDS: PANTOPRAZOLE 40 MG/PACK PACK GT SCH (08:27)
[2021-03-13] MEDS: CADEXOMER IODINE 40 GM TUBE TP SCH ×2 (08:27→21:42)
[2021-03-13] MEDS: POVIDONE-IODINE OINT 28.4 GM TUBE TP SCH ×4 (08:27→21:41)
[2021-03-13] MEDS: PYRIDOXINE HCL 50 MG TABLET GT SCH (08:27)
[2021-03-13] MEDS: VITAMINS A AND D 56.7 GM TUBE TP SCH ×3 (08:27→21:42)
[2021-03-13] MEDS: VANCOMYCIN HCL 0.75 GM in IV D5W 250 ML IV SCH (10:00)
--- NOTE | 2021-03-13 11:30 | NUR ---
Seen and examined by Dr. Santillan, aware of KUB result. Patient's GT feeding at 40 cc/hr and tolerating well, no episode of vomiting. Dr. Santillan gave an order to DC IVF and to gradually increase feeding rate until goal of 55cc/hr is reached. Order carried out.
[2021-03-13 14:33] LABS: CALCIUM, SERUM 8.6 mg/dL (8.5-10.1); CREATININE 0.9 mg/dL (0.6-1.3); POTASSIUM 3.9 mmol/L (3.5-5.1)
[2021-03-13 19:14] VITALS: BP 113/60
--- NOTE | 2021-03-13 21:15 | NUR ---
DC IVF IVF 1/2 NS at 80ml/hr discontinued as ordered by Dr. Santillan, noted by ROSALINDA Cuevas.
[2021-03-13] MEDS: ATORVASTATIN 40 MG TABLET GT SCH (21:42)
[2021-03-13] MEDS: LATANOPROST EYE DROP 0.005% 2.5 ML BOTTLE EACHEYE SCH (21:42)
--- NOTE | 2021-03-13 22:37 | NUR ---
BLOOD IN THE URINE Kumar cath intact to gravity. Lovenox injection was held since 03/11/21 d/t blood tinged in the urine. Now urine noted bright red. Last H/H 8.09/07 on 02/23/21. Notified Dr. Harper, ordered continue to Hold Lovenox. Primary Nurse Li made aware and will communicate with Oncoming Nurse to continue monitor.
[2021-03-14 00:06] VITALS: BP 110/63
[2021-03-14] MEDS: MEROPENEM 500 MG in IV NS 0.9% 50 ML IV SCH ×3 (05:26→21:25)
--- NOTE | 2021-03-14 05:31 | NUR ---
FEVER Temp spiked 100.3F cooling measure given with results Temp curved down 98.9. MK Midline intact, on IV Merrem and Vancomycin.
[2021-03-14] MEDS: JEVITY 1.2 CAL 1,000 ML BOTTLE GT PRN (06:31)
[2021-03-14] MEDS: BISACODYL SUPP (10 MG) 10 MG/SUPP.RECT SUPP.RECT RC PRN (06:31)
[2021-03-14 07:41] VITALS: BP 126/60
[2021-03-14] MEDS: HYDROGEN PEROXIDE 480 ML BOTTLE TP SCH ×2 (08:02→19:46)
[2021-03-14] MEDS: PROSOURCE / PROSTAT (PYXIS) 30 ML UDC GT SCH ×4 (09:00→20:40)
[2021-03-14] MEDS: Z GUARD REMEDY 4 OZ OINT TP SCH ×2 (09:00→20:41)
[2021-03-14] MEDS: ASPIRIN 81 MG TAB.CHEW GT SCH (09:00)
[2021-03-14] MEDS: LORATADINE 10 MG TABLET GT SCH (09:00)
[2021-03-14] MEDS: [UNRECOGNIZED DRUG - OTHER] GT SCH (09:00)
[2021-03-14] MEDS: DOCUSATE SODIUM LIQ 100 MG/10 ML UDC GT SCH ×2 (09:00→16:19)
[2021-03-14] MEDS: BICALUTAMIDE 50 MG TABLET GT SCH (09:00)
[2021-03-14] MEDS: PYRIDOXINE HCL 50 MG TABLET GT SCH (09:00)
[2021-03-14] MEDS: BACLOFEN (10 MG) 10 MG TABLET GT SCH (09:00)
[2021-03-14] MEDS: CADEXOMER IODINE 40 GM TUBE TP SCH ×2 (09:00→20:41)
[2021-03-14] MEDS: DAKINS QUARTER STRENGTH (0.125%) 480 ML BOTTLE TOP SCH (09:00)
[2021-03-14] MEDS: FOLIC ACID 1 MG TABLET GT SCH (09:00)
[2021-03-14] MEDS: VITAMINS A AND D 56.7 GM TUBE TP SCH ×3 (09:00→20:41)
[2021-03-14] MEDS: PANTOPRAZOLE 40 MG/PACK PACK GT SCH (09:00)
[2021-03-14] MEDS: LISINOPRIL (5MG) 5 MG TABLET GT SCH (09:00)
[2021-03-14] MEDS: POVIDONE-IODINE OINT 28.4 GM TUBE TP SCH ×4 (09:00→20:41)
[2021-03-14] MEDS: MULTIVIT W/MINERALS 1 TAB TABLET GT SCH (09:00)
[2021-03-14] MEDS: FERROUS SULFATE - FOR SA ONLY 330 MG/7.5 ML UDC GT SCH ×2 (09:00→16:19)
[2021-03-14] MEDS: TIMOLOL 0.5% SOLN OPHTH 5 ML BOTTLE EACHEYE SCH ×2 (09:00→16:19)
[2021-03-14 12:08] VITALS: BP 118/52
--- NOTE | 2021-03-14 15:00 | NUR ---
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 She ordered Vfend 200 mg via GT bid X 10 days and change andres catheter. Noted and carried out. Patient on IV ATBs , no adverse reactions noted, on vent, tolerating well at this time. Suctioned as needed. Kept HOB elevated at all times. Patient has less hematuria at this time, no abdominal discomfort noted. Kept safe and comfortable. Closely monitored.
[2021-03-14 15:05] LABS: CALCIUM, SERUM 8.3 mg/dL (8.5-10.1); CREATININE 0.9 mg/dL (0.6-1.3); POTASSIUM 4.1 mmol/L (3.5-5.1)
--- NOTE | 2021-03-14 17:04 | NUR ---
Inserted a new 18fr andres catheter on resident, sterile technique used, draining clear, yellow urine. Pt tolerated procedure well.
[2021-03-14] MEDS: VORICONAZOLE 200 MG TABLET GT SCH (17:12)
[2021-03-14 19:48] VITALS: BP 107/61
[2021-03-14] MEDS: ATORVASTATIN 40 MG TABLET GT SCH (22:03)
[2021-03-14] MEDS: LATANOPROST EYE DROP 0.005% 2.5 ML BOTTLE EACHEYE SCH (22:03)
[2021-03-14] MEDS: VANCOMYCIN HCL 0.75 GM in IV D5W 250 ML IV SCH (22:21)
[2021-03-15 01:53] VITALS: BP 110/70
[2021-03-15] MEDS: MEROPENEM 500 MG in IV NS 0.9% 50 ML IV SCH ×3 (05:00→20:00)
[2021-03-15 07:51] VITALS: BP 132/80
[2021-03-15] MEDS: HYDROGEN PEROXIDE 480 ML BOTTLE TP SCH ×2 (08:30→21:00)
[2021-03-15] MEDS: BICALUTAMIDE 50 MG TABLET GT SCH (09:12)
[2021-03-15] MEDS: TIMOLOL 0.5% SOLN OPHTH 5 ML BOTTLE EACHEYE SCH ×2 (09:12→16:49)
[2021-03-15] MEDS: ASPIRIN 81 MG TAB.CHEW GT SCH (09:12)
[2021-03-15] MEDS: LORATADINE 10 MG TABLET GT SCH (09:12)
[2021-03-15] MEDS: DOCUSATE SODIUM LIQ 100 MG/10 ML UDC GT SCH ×2 (09:17→16:49)
[2021-03-15] MEDS: FOLIC ACID 1 MG TABLET GT SCH (09:18)
[2021-03-15] MEDS: BACLOFEN (10 MG) 10 MG TABLET GT SCH (09:18)
[2021-03-15] MEDS: FERROUS SULFATE - FOR SA ONLY 330 MG/7.5 ML UDC GT SCH ×2 (09:18→16:49)
[2021-03-15] MEDS: LISINOPRIL (5MG) 5 MG TABLET GT SCH (09:18)
[2021-03-15] MEDS: MULTIVIT W/MINERALS 1 TAB TABLET GT SCH (09:19)
[2021-03-15] MEDS: PANTOPRAZOLE 40 MG/PACK PACK GT SCH (09:19)
[2021-03-15] MEDS: PROSOURCE / PROSTAT (PYXIS) 30 ML UDC GT SCH ×4 (09:19→21:47)
[2021-03-15] MEDS: VORICONAZOLE 200 MG TABLET GT SCH ×2 (09:20→16:51)
[2021-03-15] MEDS: PYRIDOXINE HCL 50 MG TABLET GT SCH (09:21)
[2021-03-15] MEDS: POVIDONE-IODINE OINT 28.4 GM TUBE TP SCH ×4 (09:22→21:47)
[2021-03-15] MEDS: CADEXOMER IODINE 40 GM TUBE TP SCH ×2 (09:23→21:47)
[2021-03-15] MEDS: Z GUARD REMEDY 4 OZ OINT TP SCH ×2 (09:23→21:47)
[2021-03-15] MEDS: VITAMINS A AND D 56.7 GM TUBE TP SCH ×3 (09:23→21:47)
[2021-03-15] MEDS: DAKINS QUARTER STRENGTH (0.125%) 480 ML BOTTLE TOP SCH (09:48)
[2021-03-15 16:22] LABS: CALCIUM, SERUM 8.1 mg/dL (8.5-10.1); CREATININE 0.9 mg/dL (0.6-1.3); POTASSIUM 4.3 mmol/L (3.5-5.1)
--- NOTE | 2021-03-15 18:37 | NUR ---
Seen and examined by Jennifer Porras NP, no new order given.
--- NOTE | 2021-03-15 18:55 | NUR ---
Still noted with hematuria. Seen and examined by Jennifer Porras NP, gave order to hold Aspirin 81 mg berto 03/16/21 x 1 day. Continue to hold Lovenox. Will continue to monitor.
[2021-03-15 19:42] VITALS: BP 115/73
[2021-03-15] MEDS: ATORVASTATIN 40 MG TABLET GT SCH (21:47)
[2021-03-15] MEDS: LATANOPROST EYE DROP 0.005% 2.5 ML BOTTLE EACHEYE SCH (21:47)
[2021-03-16 01:59] VITALS: BP 120/68
[2021-03-16] MEDS: MEROPENEM 500 MG in IV NS 0.9% 50 ML IV SCH ×3 (05:00→20:49)
[2021-03-16] MEDS: JEVITY 1.2 CAL 1,000 ML BOTTLE GT PRN (06:06)
[2021-03-16 07:14] VITALS: BP 132/55
[2021-03-16 07:49] LABS: CALCIUM, SERUM 8.1 mg/dL (8.5-10.1); CREATININE 0.8 mg/dL (0.6-1.3); POTASSIUM 4.6 mmol/L (3.5-5.1)
[2021-03-16] MEDS: HYDROGEN PEROXIDE 480 ML BOTTLE TP SCH ×2 (08:05→21:10)
[2021-03-16] MEDS: FOLIC ACID 1 MG TABLET GT SCH (09:00)
[2021-03-16] MEDS: POVIDONE-IODINE OINT 28.4 GM TUBE TP SCH ×4 (09:00→21:35)
[2021-03-16] MEDS: PANTOPRAZOLE 40 MG/PACK PACK GT SCH (09:00)
[2021-03-16] MEDS: CADEXOMER IODINE 40 GM TUBE TP SCH ×2 (09:00→21:35)
[2021-03-16] MEDS: BICALUTAMIDE 50 MG TABLET GT SCH (09:00)
[2021-03-16] MEDS: MULTIVIT W/MINERALS 1 TAB TABLET GT SCH (09:00)
[2021-03-16] MEDS: PROSOURCE / PROSTAT (PYXIS) 30 ML UDC GT SCH ×4 (09:00→21:34)
[2021-03-16] MEDS: VORICONAZOLE 200 MG TABLET GT SCH ×2 (09:00→17:00)
[2021-03-16] MEDS: DAKINS QUARTER STRENGTH (0.125%) 480 ML BOTTLE TOP SCH (09:00)
[2021-03-16] MEDS: [UNRECOGNIZED DRUG - OTHER] GT SCH (09:00)
[2021-03-16] MEDS: PYRIDOXINE HCL 50 MG TABLET GT SCH (09:00)
[2021-03-16] MEDS: FERROUS SULFATE - FOR SA ONLY 330 MG/7.5 ML UDC GT SCH ×2 (09:00→17:00)
[2021-03-16] MEDS: Z GUARD REMEDY 4 OZ OINT TP SCH ×2 (09:00→21:35)
[2021-03-16] MEDS: BACLOFEN (10 MG) 10 MG TABLET GT SCH (09:00)
[2021-03-16] MEDS: LISINOPRIL (5MG) 5 MG TABLET GT SCH (09:00)
[2021-03-16] MEDS: TIMOLOL 0.5% SOLN OPHTH 5 ML BOTTLE EACHEYE SCH ×2 (09:00→17:00)
[2021-03-16] MEDS: VITAMINS A AND D 56.7 GM TUBE TP SCH ×3 (09:00→21:35)
[2021-03-16] MEDS: LORATADINE 10 MG TABLET GT SCH (09:00)
[2021-03-16] MEDS: DOCUSATE SODIUM LIQ 100 MG/10 ML UDC GT SCH ×2 (09:00→17:00)
[2021-03-16] MEDS: VANCOMYCIN HCL 0.75 GM in IV D5W 250 ML IV SCH (10:00)
[2021-03-16 12:14] VITALS: BP 110/50
[2021-03-16 20:28] VITALS: BP 102/59
[2021-03-16] MEDS: ATORVASTATIN 40 MG TABLET GT SCH (21:35)
[2021-03-16] MEDS: LATANOPROST EYE DROP 0.005% 2.5 ML BOTTLE EACHEYE SCH (21:35)
[2021-03-17 02:19] VITALS: BP 110/59
[2021-03-17] MEDS: MEROPENEM 500 MG in IV NS 0.9% 50 ML IV SCH ×3 (04:49→21:00)
[2021-03-17 07:11] VITALS: BP 102/58
[2021-03-17] MEDS: FERROUS SULFATE - FOR SA ONLY 330 MG/7.5 ML UDC GT SCH ×2 (08:12→17:38)
[2021-03-17] MEDS: BICALUTAMIDE 50 MG TABLET GT SCH (08:12)
[2021-03-17] MEDS: BACLOFEN (10 MG) 10 MG TABLET GT SCH (08:12)
[2021-03-17] MEDS: LORATADINE 10 MG TABLET GT SCH (08:12)
[2021-03-17] MEDS: LISINOPRIL (5MG) 5 MG TABLET GT SCH (08:12)
[2021-03-17] MEDS: TIMOLOL 0.5% SOLN OPHTH 5 ML BOTTLE EACHEYE SCH ×2 (08:12→17:38)
[2021-03-17] MEDS: DOCUSATE SODIUM LIQ 100 MG/10 ML UDC GT SCH ×2 (08:12→17:38)
[2021-03-17] MEDS: FOLIC ACID 1 MG TABLET GT SCH (08:12)
[2021-03-17] MEDS: ASPIRIN 81 MG TAB.CHEW GT SCH (08:12)
[2021-03-17] MEDS: PANTOPRAZOLE 40 MG/PACK PACK GT SCH (08:13)
[2021-03-17] MEDS: PYRIDOXINE HCL 50 MG TABLET GT SCH (08:13)
[2021-03-17] MEDS: VORICONAZOLE 200 MG TABLET GT SCH ×2 (08:13→17:38)
[2021-03-17] MEDS: MULTIVIT W/MINERALS 1 TAB TABLET GT SCH (08:13)
[2021-03-17] MEDS: PROSOURCE / PROSTAT (PYXIS) 30 ML UDC GT SCH ×4 (08:13→21:08)
[2021-03-17] MEDS: VITAMINS A AND D 56.7 GM TUBE TP SCH ×3 (08:14→21:09)
[2021-03-17] MEDS: POVIDONE-IODINE OINT 28.4 GM TUBE TP SCH ×4 (08:14→21:08)
[2021-03-17] MEDS: CADEXOMER IODINE 40 GM TUBE TP SCH ×2 (08:14→21:08)
[2021-03-17] MEDS: DAKINS QUARTER STRENGTH (0.125%) 480 ML BOTTLE TOP SCH (08:14)
[2021-03-17] MEDS: Z GUARD REMEDY 4 OZ OINT TP SCH ×2 (08:14→21:08)
[2021-03-17] MEDS: JEVITY 1.2 CAL 1,000 ML BOTTLE GT PRN (09:00)
--- NOTE | 2021-03-17 09:24 | NUR ---
Family Invite to IDT: SW spoke to the pt.'s Maciej CHARLTON [phone] inviting them to participate in 01/22/21 12:30 pm IDT meeting. SW will follow up accordingly.
[2021-03-17] MEDS: HYDROGEN PEROXIDE 480 ML BOTTLE TP SCH ×2 (09:40→19:23)
--- NOTE | 2021-03-17 12:43 | NUR ---
Correction on documentation regarding left foot heel and left great toe. Resident's left foot heel and left great toe assessed both are DTI. Treatment done as ordered and will continue to monitor for any changes.
--- NOTE | 2021-03-17 15:31 | NUR ---
Seen and examined by CHOPPER GUN OPERATOR Jennifer Porras, noted that urine casper color, no hematuria, ordered to resume Lovenox in AM. Resident's sister Shae updated of patient's overall condition, including wounds sizes, description and treatment orders. She was informed that patient's urine is negative for hematuria and Lovenox resumed. She was also informed of people visiting Mr. Gage and pleased to know that patient is being seen by multiple people. Patient is awake no s/s of discomfort or distress.
[2021-03-17 15:37] VITALS: BP 110/62
[2021-03-17 19:47] VITALS: BP 100/56
[2021-03-17] MEDS: ATORVASTATIN 40 MG TABLET GT SCH (21:09)
[2021-03-17] MEDS: LATANOPROST EYE DROP 0.005% 2.5 ML BOTTLE EACHEYE SCH (21:09)
[2021-03-17] MEDS: VANCOMYCIN HCL 0.75 GM in IV D5W 250 ML IV SCH (22:30)
[2021-03-18 02:05] VITALS: BP 99/59
[2021-03-18] MEDS: JEVITY 1.2 CAL 1,000 ML BOTTLE GT PRN (05:51)
[2021-03-18] MEDS: MEROPENEM 500 MG in IV NS 0.9% 50 ML IV SCH ×3 (05:59→21:00)
--- NOTE | 2021-03-18 06:34 | NUR ---
PATIENT STILL HAVING HEMATURIA DRAINING TO DRAINAGE BAG MODERATE AMOUNT.WILL CONTINUE TO MONITOR AND WILL ENDORSE.
[2021-03-18] MEDS: BISACODYL SUPP (10 MG) 10 MG/SUPP.RECT SUPP.RECT RC PRN (06:50)
[2021-03-18 07:24] VITALS: BP 109/59
[2021-03-18] MEDS: LISINOPRIL (5MG) 5 MG TABLET GT SCH (09:00)
[2021-03-18] MEDS: ASPIRIN 81 MG TAB.CHEW GT SCH (09:00)
[2021-03-18] MEDS: ENOXAPARIN SODIUM 40 MG/0.4 ML DISP.SYRIN SQ SCH (09:00)
[2021-03-18] MEDS: PROSOURCE / PROSTAT (PYXIS) 30 ML UDC GT SCH ×4 (09:45→21:14)
[2021-03-18] MEDS: PANTOPRAZOLE 40 MG/PACK PACK GT SCH (09:45)
[2021-03-18] MEDS: FOLIC ACID 1 MG TABLET GT SCH (09:45)
[2021-03-18] MEDS: LORATADINE 10 MG TABLET GT SCH (09:45)
[2021-03-18] MEDS: DOCUSATE SODIUM LIQ 100 MG/10 ML UDC GT SCH ×2 (09:45→16:49)
[2021-03-18] MEDS: VORICONAZOLE 200 MG TABLET GT SCH ×2 (09:45→16:49)
[2021-03-18] MEDS: FERROUS SULFATE - FOR SA ONLY 330 MG/7.5 ML UDC GT SCH ×2 (09:45→16:49)
[2021-03-18] MEDS: BACLOFEN (10 MG) 10 MG TABLET GT SCH (09:45)
[2021-03-18] MEDS: [UNRECOGNIZED DRUG - OTHER] GT SCH (09:45)
[2021-03-18] MEDS: TIMOLOL 0.5% SOLN OPHTH 5 ML BOTTLE EACHEYE SCH ×2 (09:45→16:49)
[2021-03-18] MEDS: PYRIDOXINE HCL 50 MG TABLET GT SCH (09:45)
[2021-03-18] MEDS: BICALUTAMIDE 50 MG TABLET GT SCH (09:45)
[2021-03-18] MEDS: MULTIVIT W/MINERALS 1 TAB TABLET GT SCH (09:45)
--- NOTE | 2021-03-18 09:47 | NUR ---
Aspirin and Lovenox held d/t hematuria. Charge nurse notified. Pt calm, no distress noted. Pt kept comfortable.
[2021-03-18 12:09] VITALS: BP 94/63
--- NOTE | 2021-03-18 12:25 | NUR ---
Informed Dr Santillan that pt still has blood-tinged urine. He ordered to continue holding Lovenox and Aspirin.
[2021-03-18] MEDS: VITAMINS A AND D 56.7 GM TUBE TP SCH ×3 (13:00→21:35)
[2021-03-18] MEDS: CADEXOMER IODINE 40 GM TUBE TP SCH ×2 (13:00→21:35)
[2021-03-18] MEDS: Z GUARD REMEDY 4 OZ OINT TP SCH ×2 (13:00→21:35)
[2021-03-18] MEDS: POVIDONE-IODINE OINT 28.4 GM TUBE TP SCH ×5 (13:00→21:35)
[2021-03-18] MEDS: DAKINS QUARTER STRENGTH (0.125%) 480 ML BOTTLE TOP SCH (13:00)
--- NOTE | 2021-03-18 17:02 | NUR ---
Per Dr Sullivan, give Pneumovax-23 one week after completion of antibiotics.
--- NOTE | 2021-03-18 17:17 | NUR ---
Seen by Dr Kayla Espinosa today. She examined pt's wounds on the bilateral lower extremities. She ordered to DC Iodosorb and instead apply Betadine to pt's left hindfoot unstageable wound, DC Xeroform dressing and apply Betadine to pt's right posterior leg wound. She also said to apply Betadine-soaked gauze to right heel before applying Mepilex dressing. Dr Espinosa ordered an arterial Doppler. Notified Dr Kayla Espinosa that pt's sister Shae would like to speak with her. She called pt's sister.
[2021-03-18 19:26] VITALS: BP 123/69
[2021-03-18] MEDS: HYDROGEN PEROXIDE 480 ML BOTTLE TP SCH (19:44)
[2021-03-18] MEDS: ACETAMINOPHEN 650 MG/20 ML UDC- SA PATIENTS-PAIN ONLY GT PRN (21:00)
[2021-03-18] MEDS: LATANOPROST EYE DROP 0.005% 2.5 ML BOTTLE EACHEYE SCH (21:14)
[2021-03-18] MEDS: ATORVASTATIN 40 MG TABLET GT SCH (21:15)
[2021-03-19 00:18] VITALS: BP 102/60
[2021-03-19] MEDS: MEROPENEM 500 MG in IV NS 0.9% 50 ML IV SCH ×3 (05:00→20:29)
[2021-03-19] MEDS: JEVITY 1.2 CAL 1,000 ML BOTTLE GT PRN (05:31)
--- NOTE | 2021-03-19 06:12 | NUR ---
Patient still noted with hematuria.Will continue to monitor.
[2021-03-19 07:39] VITALS: BP 101/60
[2021-03-19] MEDS: HYDROGEN PEROXIDE 480 ML BOTTLE TP SCH ×2 (08:38→21:16)
[2021-03-19] MEDS: LISINOPRIL (5MG) 5 MG TABLET GT SCH (09:00)
--- NOTE | 2021-03-19 09:00 | NUR ---
Lovenox SQ and Aspirin held d/t continues hematuria. informed.
[2021-03-19] MEDS: ASPIRIN 81 MG TAB.CHEW GT SCH (09:29)
[2021-03-19] MEDS: TIMOLOL 0.5% SOLN OPHTH 5 ML BOTTLE EACHEYE SCH ×2 (09:29→17:26)
[2021-03-19] MEDS: DOCUSATE SODIUM LIQ 100 MG/10 ML UDC GT SCH ×2 (09:36→17:26)
[2021-03-19] MEDS: FERROUS SULFATE - FOR SA ONLY 330 MG/7.5 ML UDC GT SCH ×2 (09:36→17:26)
[2021-03-19] MEDS: FOLIC ACID 1 MG TABLET GT SCH (09:36)
[2021-03-19] MEDS: BICALUTAMIDE 50 MG TABLET GT SCH (09:36)
[2021-03-19] MEDS: BACLOFEN (10 MG) 10 MG TABLET GT SCH (09:36)
[2021-03-19] MEDS: LORATADINE 10 MG TABLET GT SCH (09:36)
[2021-03-19] MEDS: PANTOPRAZOLE 40 MG/PACK PACK GT SCH (09:37)
[2021-03-19] MEDS: VORICONAZOLE 200 MG TABLET GT SCH ×2 (09:37→17:26)
[2021-03-19] MEDS: MULTIVIT W/MINERALS 1 TAB TABLET GT SCH (09:37)
[2021-03-19] MEDS: PROSOURCE / PROSTAT (PYXIS) 30 ML UDC GT SCH ×4 (09:37→21:27)
[2021-03-19] MEDS: ENOXAPARIN SODIUM 40 MG/0.4 ML DISP.SYRIN SQ SCH (09:38)
[2021-03-19] MEDS: PYRIDOXINE HCL 50 MG TABLET GT SCH (09:38)
[2021-03-19] MEDS: VANCOMYCIN HCL 0.75 GM in IV D5W 250 ML IV SCH (10:05)
[2021-03-19] MEDS: ACETAMINOPHEN 650 MG/20 ML UDC- SA PATIENTS-PAIN ONLY GT PRN (10:15)
[2021-03-19] MEDS: DAKINS QUARTER STRENGTH (0.125%) 480 ML BOTTLE TOP SCH (11:00)
[2021-03-19] MEDS: Z GUARD REMEDY 4 OZ OINT TP SCH ×2 (11:00→21:27)
[2021-03-19] MEDS: CADEXOMER IODINE 40 GM TUBE TP SCH ×2 (11:00→21:27)
[2021-03-19] MEDS: VITAMINS A AND D 56.7 GM TUBE TP SCH ×3 (11:00→21:27)
[2021-03-19] MEDS: POVIDONE-IODINE OINT 28.4 GM TUBE TP SCH ×6 (11:00→21:27)
[2021-03-19 15:44] VITALS: BP 124/64
--- NOTE | 2021-03-19 16:42 | NUR ---
INTERDISCIPLINARY PLAN OF CARE CONFERENCE took place today. The patients ZOLTAN, Tinajeanineroxy participated in IDT via phone conference. Dr. Sullivan and Interdisciplinary team discussed the plan of care in detail. Current orders as well as treatments and medications were reviewed. IDT addressed the CM questions. See other disciplines IDT notes for further details.
--- NOTE | 2021-03-19 18:00 | NUR ---
Seen and examined by Dr. Santillan, reported that patient still has hematuria. Dr. Santillan ordered to resume Aspirin and continue to hold Lovenox. also gave an order to give artificial tears for eye dryness. During IDT meeting, Dr. Sullivan gave an order to medicate patient with stronger pain medication prior to wound treatment as patient observed to lenin during treatment. Maciej who participated in the meeting is aware of new pain medication order.
[2021-03-19 19:18] VITALS: BP 99/55
[2021-03-19 20:21] LABS: CARBON DIOXIDE 28 mmol/L (21-32); CHLORIDE 104 mmol/L (98-107); CREATININE 0.9 mg/dL (0.6-1.3); GLUCOSE 115 mg/dL (74-106); POTASSIUM 4.9 mmol/L (3.5-5.1); SODIUM SERUM 137 mmol/L (136-145); UREA NITROGEN, BLOOD 38 mg/dL (7-18)
[2021-03-19] MEDS: ATORVASTATIN 40 MG TABLET GT SCH (21:27)
[2021-03-19] MEDS: LATANOPROST EYE DROP 0.005% 2.5 ML BOTTLE EACHEYE SCH (21:27)
[2021-03-20 00:18] VITALS: BP 101/65
[2021-03-20] MEDS: ACETAMINOPHEN 650 MG/20 ML UDC- SA PATIENTS-PAIN ONLY GT PRN (00:31)
[2021-03-20] MEDS: POLYVINYL ALCOHOL 15 ML BOTTLE OP SCH ×4 (00:31→17:08)
[2021-03-20] MEDS: JEVITY 1.2 CAL 1,000 ML BOTTLE GT PRN ×2 (00:32→21:12)
[2021-03-20 05:00] VITALS: BP_SYST 98
[2021-03-20] MEDS: MEROPENEM 500 MG in IV NS 0.9% 50 ML IV SCH ×3 (05:39→20:33)
[2021-03-20 07:14] VITALS: BP 108/56
--- NOTE | 2021-03-20 08:10 | NUR ---
Received a call from Dr. Garza, silver service waiter informing her of lower extremity arterial ultrasound result. She said she will refer it to a vascular surgeon and will take care of it on Monday. Endorsed.
[2021-03-20] MEDS: HYDROGEN PEROXIDE 480 ML BOTTLE TP SCH ×2 (08:37→20:50)
[2021-03-20] MEDS ORDERED: HYDROCODONE/APAP 5/325MG TABLET GT SCH (09:00)
[2021-03-20] MEDS: FOLIC ACID 1 MG TABLET GT SCH (09:40)
[2021-03-20] MEDS: ASPIRIN 81 MG TAB.CHEW GT SCH (09:40)
[2021-03-20] MEDS: TIMOLOL 0.5% SOLN OPHTH 5 ML BOTTLE EACHEYE SCH ×2 (09:40→16:50)
[2021-03-20] MEDS: BICALUTAMIDE 50 MG TABLET GT SCH (09:40)
[2021-03-20] MEDS: LORATADINE 10 MG TABLET GT SCH (09:40)
[2021-03-20] MEDS: [UNRECOGNIZED DRUG - OTHER] GT SCH (09:40)
[2021-03-20] MEDS: DOCUSATE SODIUM LIQ 100 MG/10 ML UDC GT SCH ×2 (09:40→16:50)
[2021-03-20] MEDS: BACLOFEN (10 MG) 10 MG TABLET GT SCH (09:40)
[2021-03-20] MEDS: FERROUS SULFATE - FOR SA ONLY 330 MG/7.5 ML UDC GT SCH ×2 (09:40→16:50)
[2021-03-20] MEDS: VORICONAZOLE 200 MG TABLET GT SCH ×2 (09:41→16:50)
[2021-03-20] MEDS: PANTOPRAZOLE 40 MG/PACK PACK GT SCH (09:41)
[2021-03-20] MEDS: PROSOURCE / PROSTAT (PYXIS) 30 ML UDC GT SCH ×4 (09:41→21:10)
[2021-03-20] MEDS: PYRIDOXINE HCL 50 MG TABLET GT SCH (09:41)
[2021-03-20] MEDS: MULTIVIT W/MINERALS 1 TAB TABLET GT SCH (09:41)
[2021-03-20] MEDS: LISINOPRIL (5MG) 5 MG TABLET GT SCH (09:41)
[2021-03-20] MEDS: POVIDONE-IODINE OINT 28.4 GM TUBE TP SCH ×6 (10:30→21:10)
[2021-03-20] MEDS: Z GUARD REMEDY 4 OZ OINT TP SCH ×2 (10:30→21:11)
[2021-03-20] MEDS: DAKINS QUARTER STRENGTH (0.125%) 480 ML BOTTLE TOP SCH (10:30)
[2021-03-20] MEDS: VITAMINS A AND D 56.7 GM TUBE TP SCH ×3 (10:30→21:11)
[2021-03-20 13:09] VITALS: BP 124/66
--- NOTE | 2021-03-20 15:30 | NUR ---
Clarified with TEAM FOREMAN Jailyn Tito regarding duration of ATB Vancomycin and Merrem for osteomyelitis. TEAM FOREMAN Jailyn ordered for another 4 weeks. Ordered carried out.
--- NOTE | 2021-03-20 15:53 | NUR ---
Spoke with patient's sister Shae updated of patient's overall condition, result of US lower extremities. Ms. Kaufman said she spoke with Dr. Garza and explained everything to her including the test that she ordered and possible consultation with a vascular surgeon. She was also made aware that current ATB, Vancomycin and Merrem will be given for 4 more weeks. Shae said that she will call social service on Monday to find out if she can have a virtual visit with patient next week. Endorsed.
[2021-03-20 16:47] LABS: CALCIUM, SERUM 8.4 mg/dL (8.5-10.1); POTASSIUM 4.9 mmol/L (3.5-5.1)
[2021-03-20 19:12] VITALS: BP 101/54
[2021-03-20] MEDS: HYDROCODONE/APAP 5/325MG TABLET GT SCH (21:10)
[2021-03-20] MEDS: ATORVASTATIN 40 MG TABLET GT SCH (21:11)
[2021-03-20] MEDS: LATANOPROST EYE DROP 0.005% 2.5 ML BOTTLE EACHEYE SCH (21:11)
[2021-03-20] MEDS: VANCOMYCIN HCL 0.75 GM in IV D5W 250 ML IV SCH ×2 (21:24→22:00)
[2021-03-21 00:17] VITALS: BP 104/58
[2021-03-21] MEDS: POLYVINYL ALCOHOL 15 ML BOTTLE OP SCH ×4 (00:48→17:56)
--- NOTE | 2021-03-21 05:00 | NUR ---
RN NOTES Removed patients left upper arm midline with no active bleeding or s/s of infection noted. Denies pain/discomfort at this time. Will continue to monitor.
[2021-03-21] MEDS: MEROPENEM 500 MG in IV NS 0.9% 50 ML IV SCH ×3 (05:08→20:34)
[2021-03-21] MEDS: ACETAMINOPHEN 650 MG/20 ML UDC- SA PATIENTS-PAIN ONLY GT PRN (07:06)
[2021-03-21 07:20] VITALS: BP 125/72
[2021-03-21] MEDS: FOLIC ACID 1 MG TABLET GT SCH (09:00)
[2021-03-21] MEDS: TIMOLOL 0.5% SOLN OPHTH 5 ML BOTTLE EACHEYE SCH ×2 (09:00→16:38)
[2021-03-21] MEDS: VORICONAZOLE 200 MG TABLET GT SCH ×2 (09:00→16:40)
[2021-03-21] MEDS: POVIDONE-IODINE OINT 28.4 GM TUBE TP SCH ×8 (09:00→20:24)
[2021-03-21] MEDS: ASPIRIN 81 MG TAB.CHEW GT SCH (09:00)
[2021-03-21] MEDS: MULTIVIT W/MINERALS 1 TAB TABLET GT SCH (09:00)
[2021-03-21] MEDS: VITAMINS A AND D 56.7 GM TUBE TP SCH ×3 (09:00→20:24)
[2021-03-21] MEDS: HYDROCODONE/APAP 5/325MG TABLET GT SCH ×2 (09:00→20:22)
[2021-03-21] MEDS: LORATADINE 10 MG TABLET GT SCH (09:00)
[2021-03-21] MEDS: FERROUS SULFATE - FOR SA ONLY 330 MG/7.5 ML UDC GT SCH ×2 (09:00→16:38)
[2021-03-21] MEDS: PANTOPRAZOLE 40 MG/PACK PACK GT SCH (09:00)
[2021-03-21] MEDS: DOCUSATE SODIUM LIQ 100 MG/10 ML UDC GT SCH ×2 (09:00→16:38)
[2021-03-21] MEDS: PROSOURCE / PROSTAT (PYXIS) 30 ML UDC GT SCH ×4 (09:00→20:22)
[2021-03-21] MEDS: LISINOPRIL (5MG) 5 MG TABLET GT SCH (09:00)
[2021-03-21] MEDS: DAKINS QUARTER STRENGTH (0.125%) 480 ML BOTTLE TOP SCH (09:00)
[2021-03-21] MEDS: BICALUTAMIDE 50 MG TABLET GT SCH (09:00)
[2021-03-21] MEDS: Z GUARD REMEDY 4 OZ OINT TP SCH ×2 (09:00→20:24)
[2021-03-21] MEDS: PYRIDOXINE HCL 50 MG TABLET GT SCH (09:00)
[2021-03-21] MEDS: BACLOFEN (10 MG) 10 MG TABLET GT SCH (09:00)
[2021-03-21] MEDS: HYDROGEN PEROXIDE 480 ML BOTTLE TP SCH ×2 (09:20→21:49)
[2021-03-21] MEDS: VANCOMYCIN HCL 0.75 GM in IV D5W 250 ML IV SCH (10:00)
[2021-03-21 13:26] VITALS: BP 112/75
[2021-03-21 15:57] LABS: CALCIUM, SERUM 8.4 mg/dL (8.5-10.1); POTASSIUM 5.3 mmol/L (3.5-5.1)
[2021-03-21] MEDS: JEVITY 1.2 CAL 1,000 ML BOTTLE GT PRN (18:04)
[2021-03-21 20:09] VITALS: BP 115/77
[2021-03-21] MEDS: LATANOPROST EYE DROP 0.005% 2.5 ML BOTTLE EACHEYE SCH (21:32)
[2021-03-21] MEDS: ATORVASTATIN 40 MG TABLET GT SCH (21:32)
[2021-03-22 02:46] VITALS: BP 100/62
[2021-03-22] MEDS: MEROPENEM 500 MG in IV NS 0.9% 50 ML IV SCH ×3 (05:00→21:00)
[2021-03-22] MEDS: POLYVINYL ALCOHOL 15 ML BOTTLE OP SCH ×4 (05:15→17:06)
[2021-03-22 07:46] VITALS: BP 105/58
[2021-03-22] MEDS: DAKINS QUARTER STRENGTH (0.125%) 480 ML BOTTLE TOP SCH (09:00)
[2021-03-22] MEDS: Z GUARD REMEDY 4 OZ OINT TP SCH ×2 (09:00→20:41)
[2021-03-22] MEDS: POVIDONE-IODINE OINT 28.4 GM TUBE TP SCH ×8 (09:00→20:41)
[2021-03-22] MEDS: LISINOPRIL (5MG) 5 MG TABLET GT SCH (09:00)
[2021-03-22] MEDS: VITAMINS A AND D 56.7 GM TUBE TP SCH ×3 (09:00→20:41)
[2021-03-22] MEDS: HYDROGEN PEROXIDE 480 ML BOTTLE TP SCH ×2 (09:02→20:26)
[2021-03-22] MEDS: BICALUTAMIDE 50 MG TABLET GT SCH (09:56)
[2021-03-22] MEDS: LORATADINE 10 MG TABLET GT SCH (09:56)
[2021-03-22] MEDS: [UNRECOGNIZED DRUG - OTHER] GT SCH (09:56)
[2021-03-22] MEDS: FOLIC ACID 1 MG TABLET GT SCH (09:56)
[2021-03-22] MEDS: ASPIRIN 81 MG TAB.CHEW GT SCH (09:56)
[2021-03-22] MEDS: TIMOLOL 0.5% SOLN OPHTH 5 ML BOTTLE EACHEYE SCH ×2 (09:56→17:06)
[2021-03-22] MEDS: DOCUSATE SODIUM LIQ 100 MG/10 ML UDC GT SCH ×2 (09:56→17:06)
[2021-03-22] MEDS: BACLOFEN (10 MG) 10 MG TABLET GT SCH (09:56)
[2021-03-22] MEDS: FERROUS SULFATE - FOR SA ONLY 330 MG/7.5 ML UDC GT SCH ×2 (09:56→17:06)
[2021-03-22] MEDS: VORICONAZOLE 200 MG TABLET GT SCH ×2 (09:57→17:06)
[2021-03-22] MEDS: PANTOPRAZOLE 40 MG/PACK PACK GT SCH (09:57)
[2021-03-22] MEDS: HYDROCODONE/APAP 5/325MG TABLET GT SCH ×2 (09:57→20:41)
[2021-03-22] MEDS: PROSOURCE / PROSTAT (PYXIS) 30 ML UDC GT SCH ×4 (09:57→20:41)
[2021-03-22] MEDS: MULTIVIT W/MINERALS 1 TAB TABLET GT SCH (09:57)
[2021-03-22] MEDS: PYRIDOXINE HCL 50 MG TABLET GT SCH (09:58)
[2021-03-22 17:04] VITALS: BP 117/63
--- NOTE | 2021-03-22 18:57 | NUR ---
Seen by FLAT SHEET MAKER Jennifer Porras. Relayed BMP result, K 5.3 to her. No new order.
[2021-03-22 19:52] VITALS: BP 125/85
[2021-03-22] MEDS: LATANOPROST EYE DROP 0.005% 2.5 ML BOTTLE EACHEYE SCH (21:06)
[2021-03-22] MEDS: ATORVASTATIN 40 MG TABLET GT SCH (21:06)
[2021-03-22 21:21] LABS: CALCIUM, SERUM 8.9 mg/dL (8.5-10.1)
[2021-03-23] MEDS: POLYVINYL ALCOHOL 15 ML BOTTLE OP SCH ×4 (00:35→17:31)
[2021-03-23 02:18] VITALS: BP 105/75
[2021-03-23] MEDS: MEROPENEM 500 MG in IV NS 0.9% 50 ML IV SCH ×3 (05:00→21:00)
[2021-03-23 07:37] VITALS: BP 115/65
[2021-03-23] MEDS: POVIDONE-IODINE OINT 28.4 GM TUBE TP SCH ×8 (09:00→20:36)
[2021-03-23] MEDS: LORATADINE 10 MG TABLET GT SCH (09:00)
[2021-03-23] MEDS: DAKINS QUARTER STRENGTH (0.125%) 480 ML BOTTLE TOP SCH (09:00)
[2021-03-23] MEDS: PANTOPRAZOLE 40 MG/PACK PACK GT SCH (09:00)
[2021-03-23] MEDS: PYRIDOXINE HCL 50 MG TABLET GT SCH (09:00)
[2021-03-23] MEDS: VORICONAZOLE 200 MG TABLET GT SCH ×2 (09:00→17:31)
[2021-03-23] MEDS: BACLOFEN (10 MG) 10 MG TABLET GT SCH (09:00)
[2021-03-23] MEDS: HYDROCODONE/APAP 5/325MG TABLET GT SCH ×2 (09:00→20:35)
[2021-03-23] MEDS: PROSOURCE / PROSTAT (PYXIS) 30 ML UDC GT SCH ×4 (09:00→20:35)
[2021-03-23] MEDS: LISINOPRIL (5MG) 5 MG TABLET GT SCH (09:00)
[2021-03-23] MEDS: BICALUTAMIDE 50 MG TABLET GT SCH (09:00)
[2021-03-23] MEDS: ASPIRIN 81 MG TAB.CHEW GT SCH (09:00)
[2021-03-23] MEDS: VITAMINS A AND D 56.7 GM TUBE TP SCH ×3 (09:00→20:36)
[2021-03-23] MEDS: FERROUS SULFATE - FOR SA ONLY 330 MG/7.5 ML UDC GT SCH ×2 (09:00→17:30)
[2021-03-23] MEDS: FOLIC ACID 1 MG TABLET GT SCH (09:00)
[2021-03-23] MEDS: DOCUSATE SODIUM LIQ 100 MG/10 ML UDC GT SCH ×2 (09:00→17:30)
[2021-03-23] MEDS: MULTIVIT W/MINERALS 1 TAB TABLET GT SCH (09:00)
[2021-03-23] MEDS: TIMOLOL 0.5% SOLN OPHTH 5 ML BOTTLE EACHEYE SCH ×2 (09:00→17:30)
[2021-03-23] MEDS: Z GUARD REMEDY 4 OZ OINT TP SCH ×2 (09:00→20:36)
[2021-03-23] MEDS: HYDROGEN PEROXIDE 480 ML BOTTLE TP SCH ×2 (09:35→20:32)
[2021-03-23] MEDS: VANCOMYCIN HCL 0.75 GM in IV D5W 250 ML IV SCH (10:00)
--- NOTE | 2021-03-23 11:15 | NUR ---
Asked Dr Kayla Espinosa if she has already spoken with vascular surgeon. She said she will reach out to Dr Rosa.
--- NOTE | 2021-03-23 11:24 | NUR ---
Spoke with REGINE Glez to evaluate pt's nutritional needs due to multiple wounds.
--- NOTE | 2021-03-23 11:53 | NUR ---
Seen by Dr Rosa. No new order.
[2021-03-23 15:56] VITALS: BP 127/74
--- NOTE | 2021-03-23 16:27 | NUR ---
Received order to give Arcadio 1 packet via GT BID for wound healing per dietary recommendation.
[2021-03-23] MEDS: ARGININE/GLUTAMINE/CALCIUM BMB 1 EACH POWD.PACK GT SCH (17:00)
[2021-03-23 17:16] LABS: CALCIUM, SERUM 8.5 mg/dL (8.5-10.1); CARBON DIOXIDE 31 mmol/L (21-32); CHLORIDE 108 mmol/L (98-107); GLUCOSE 109 mg/dL (74-106); POTASSIUM 4.9 mmol/L (3.5-5.1); SODIUM SERUM 144 mmol/L (136-145); UREA NITROGEN, BLOOD 46 mg/dL (7-18)
[2021-03-23 20:03] VITALS: BP 100/64
[2021-03-23] MEDS: ATORVASTATIN 40 MG TABLET GT SCH (21:01)
[2021-03-23] MEDS: LATANOPROST EYE DROP 0.005% 2.5 ML BOTTLE EACHEYE SCH (21:01)
[2021-03-23] MEDS: ONDANSETRON 4 MG TAB.RAPDIS GT PRN (23:44)
[2021-03-24] MEDS: POLYVINYL ALCOHOL 15 ML BOTTLE OP SCH ×4 (00:04→17:39)
[2021-03-24] MEDS: ACETAMINOPHEN 650 MG/20 ML UDC- SA PATIENTS-FEVER ONLY GT PRN (00:30)
[2021-03-24 01:49] VITALS: BP 97/60
[2021-03-24] MEDS: MEROPENEM 500 MG in IV NS 0.9% 50 ML IV SCH ×3 (05:00→20:37)
[2021-03-24 07:03] LABS: CALCIUM, SERUM 8.5 mg/dL (8.5-10.1); CREATININE 1.1 mg/dL (0.6-1.3); POTASSIUM 4.7 mmol/L (3.5-5.1)
[2021-03-24 08:00] VITALS: BP 94/43
[2021-03-24] MEDS: LISINOPRIL (5MG) 5 MG TABLET GT SCH (09:00)
[2021-03-24] MEDS: PROSOURCE / PROSTAT (PYXIS) 30 ML UDC GT SCH ×4 (09:16→21:37)
[2021-03-24] MEDS: HYDROCODONE/APAP 5/325MG TABLET GT SCH ×2 (09:29→21:37)
[2021-03-24] MEDS: MULTIVIT W/MINERALS 1 TAB TABLET GT SCH (09:29)
[2021-03-24] MEDS: VORICONAZOLE 200 MG TABLET GT SCH (09:29)
[2021-03-24] MEDS: PANTOPRAZOLE 40 MG/PACK PACK GT SCH (09:29)
[2021-03-24] MEDS: DAKINS QUARTER STRENGTH (0.125%) 480 ML BOTTLE TOP SCH (09:30)
[2021-03-24] MEDS: PYRIDOXINE HCL 50 MG TABLET GT SCH (09:30)
[2021-03-24] MEDS: POVIDONE-IODINE OINT 28.4 GM TUBE TP SCH ×8 (09:30→21:37)
[2021-03-24] MEDS: VITAMINS A AND D 56.7 GM TUBE TP SCH ×3 (09:31→21:37)
[2021-03-24] MEDS: Z GUARD REMEDY 4 OZ OINT TP SCH ×2 (09:31→21:37)
[2021-03-24] MEDS: [UNRECOGNIZED DRUG - OTHER] GT SCH (09:31)
[2021-03-24] MEDS: ARGININE/GLUTAMINE/CALCIUM BMB 1 EACH POWD.PACK GT SCH ×2 (09:32→17:39)
[2021-03-24] MEDS: ASPIRIN 81 MG TAB.CHEW GT SCH (09:32)
[2021-03-24] MEDS: LORATADINE 10 MG TABLET GT SCH (09:32)
[2021-03-24] MEDS: BICALUTAMIDE 50 MG TABLET GT SCH (09:32)
[2021-03-24] MEDS: TIMOLOL 0.5% SOLN OPHTH 5 ML BOTTLE EACHEYE SCH ×2 (09:32→17:39)
[2021-03-24] MEDS: FERROUS SULFATE - FOR SA ONLY 330 MG/7.5 ML UDC GT SCH ×2 (09:32→17:39)
[2021-03-24] MEDS: BACLOFEN (10 MG) 10 MG TABLET GT SCH (09:32)
[2021-03-24] MEDS: FOLIC ACID 1 MG TABLET GT SCH (09:32)
[2021-03-24] MEDS: DOCUSATE SODIUM LIQ 100 MG/10 ML UDC GT SCH ×2 (09:32→17:39)
[2021-03-24] MEDS: HYDROGEN PEROXIDE 480 ML BOTTLE TP SCH ×2 (10:03→19:47)
--- NOTE | 2021-03-24 10:29 | NUR ---
Facility Update: SW notified family via email that, "Facility Update: No [facility] Sub-Acute residents or employees tested positive for COVID-19 this week. [facility] continues to test Sub-Acute residents & healthcare personnel as recommended by [facility]. [facility] continues to follow infection control protocols and screen our residents and staff daily for symptoms".
[2021-03-24 12:00] VITALS: BP 91/51
[2021-03-24] MEDS ORDERED: ARGININE/GLUTAMINE/CALCIUM BMB 1 EACH POWD.PACK GT SCH (17:00)
[2021-03-24 18:43] VITALS: BP 94/43
[2021-03-24 19:54] VITALS: BP 96/64
[2021-03-24] MEDS: LATANOPROST EYE DROP 0.005% 2.5 ML BOTTLE EACHEYE SCH (21:37)
[2021-03-24] MEDS: ATORVASTATIN 40 MG TABLET GT SCH (21:37)
[2021-03-24] MEDS: JEVITY 1.2 CAL 1,000 ML BOTTLE GT PRN (22:32)
[2021-03-25] VITALS (9 sets, daily range): BP systolic 92–117; BP diastolic 45–70
[2021-03-25] MEDS: POLYVINYL ALCOHOL 15 ML BOTTLE OP SCH ×5 (00:07→23:05)
[2021-03-25] MEDS: MEROPENEM 500 MG in IV NS 0.9% 50 ML IV SCH ×3 (05:25→21:00)
[2021-03-25 07:34] LABS: CALCIUM, SERUM 8.9 mg/dL (8.5-10.1); CREATININE 1.2 mg/dL (0.6-1.3); POTASSIUM 5.1 mmol/L (3.5-5.1)
[2021-03-25] MEDS: HYDROGEN PEROXIDE 480 ML BOTTLE TP SCH ×2 (09:00→19:49)
[2021-03-25] MEDS: POVIDONE-IODINE OINT 28.4 GM TUBE TP SCH ×4 (09:00)
[2021-03-25] MEDS: LISINOPRIL (5MG) 5 MG TABLET GT SCH (09:00)
[2021-03-25] MEDS: VITAMINS A AND D 56.7 GM TUBE TP SCH ×3 (09:00→20:45)
[2021-03-25] MEDS: DAKINS QUARTER STRENGTH (0.125%) 480 ML BOTTLE TOP SCH (09:00)
[2021-03-25] MEDS: Z GUARD REMEDY 4 OZ OINT TP SCH ×2 (09:00→20:45)
[2021-03-25] MEDS: VANCOMYCIN HCL 0.75 GM in IV D5W 250 ML IV SCH (09:19)
[2021-03-25] MEDS: ASPIRIN 81 MG TAB.CHEW GT SCH (09:42)
[2021-03-25] MEDS: BICALUTAMIDE 50 MG TABLET GT SCH (09:42)
[2021-03-25] MEDS: TIMOLOL 0.5% SOLN OPHTH 5 ML BOTTLE EACHEYE SCH ×2 (09:42→17:30)
[2021-03-25] MEDS: FERROUS SULFATE - FOR SA ONLY 330 MG/7.5 ML UDC GT SCH ×2 (09:43→17:30)
[2021-03-25] MEDS: ARGININE/GLUTAMINE/CALCIUM BMB 1 EACH POWD.PACK GT SCH ×2 (09:43→17:30)
[2021-03-25] MEDS: LORATADINE 10 MG TABLET GT SCH (09:43)
[2021-03-25] MEDS: BACLOFEN (10 MG) 10 MG TABLET GT SCH (09:43)
[2021-03-25] MEDS: FOLIC ACID 1 MG TABLET GT SCH (09:43)
[2021-03-25] MEDS: DOCUSATE SODIUM LIQ 100 MG/10 ML UDC GT SCH ×2 (09:43→17:30)
[2021-03-25] MEDS: HYDROCODONE/APAP 5/325MG TABLET GT SCH ×2 (09:44→20:45)
[2021-03-25] MEDS: PYRIDOXINE HCL 50 MG TABLET GT SCH (09:44)
[2021-03-25] MEDS: PROSOURCE / PROSTAT (PYXIS) 30 ML UDC GT SCH ×4 (09:44→20:45)
[2021-03-25] MEDS: PANTOPRAZOLE 40 MG/PACK PACK GT SCH (09:44)
[2021-03-25] MEDS: MULTIVIT W/MINERALS 1 TAB TABLET GT SCH (09:44)
--- NOTE | 2021-03-25 09:49 | NUR ---
Relayed BUN [address] Santillan. Received order to do CBC. Addendum: 03/25/21 at 1822 by NEW OSBORNE RN No hematuria, no active bleeding noted.
[2021-03-25 10:42] LABS: BASOPHILS % (AUTO) 0.5 % (0.0-2.0); EOSINOPHILS % (AUTO) 4.3 % (0.0-6.0); LYMPHOCYTES # (AUTO) 1.1 K/uL (0.8-4.8); LYMPHOCYTES % (AUTO) 11.3 % (20.0-44.0); MEAN CORPUSCULAR HGB CONC 33 g/dl (31.0-36.0); MEAN CORPUSCULAR VOLUME 93 fL (80-96); MONOCYTES # (AUTO) 0.8 K/uL (0.1-1.30); MONOCYTES % (AUTO) 8.2 % (2.0-12.0); NEUTROPHILS # (AUTO) 7.5 K/uL (1.8-8.9); NEUTROPHILS % (AUTO) 75.7 % (43.0-81.0); PLATELET COUNT (AUTO) 461 K/uL (150-450); RED BLOOD CELL COUNT(AUTO) 2.15 MIL/uL (4.5-6.0); WHITE BLOOD COUNT (AUTO) 9.9 K/uL (4.3-11.0)
[2021-03-25 10:47] LABS: HEMOGLOBIN 6.5 g/dL (13.5-17.5)
[2021-03-25 10:48] LABS: HEMATOCRIT 20 % (39-51)
[2021-03-25 11:03] LABS: BAND % (MANUAL) 1 % (0.0-5.0); EOSINOPHILS % (MANUAL) 3 % (0-4); LYMPHOCYTES % (MANUAL) 14 % (16-48); MONOCYTES % (MANUAL) 6 % (0-11.0); NEUTROPHILS % (MANUAL) 76 (42-76)
--- NOTE | 2021-03-25 12:30 | NUR ---
Relayed Hgb 6.[address] Santillan. He ordered to tra Addendum: 03/25/21 at 1821 by NEW OSBORNE RN He ordered to transfuse 1 unit of PRBC and check stool for OB. Notified pt's sister Shae.
--- NOTE | 2021-03-25 17:54 | NUR ---
Started transfusing 1 unit of PRBC via MK midline. Pt awake, T 99.9 F BP 97/61 P 117 R 18 02 sat 98%.
--- NOTE | 2021-03-25 18:14 | NUR ---
Transfusing 1 unit of PRBC. No adverse reaction to blood transfusion noted.
--- NOTE | 2021-03-25 20:29 | NUR ---
Blood transfusion completed. No adverse reaction noted. Vital signs stable.Will continue to monitor.
[2021-03-25] MEDS: LATANOPROST EYE DROP 0.005% 2.5 ML BOTTLE EACHEYE SCH (21:13)
[2021-03-25] MEDS: MAGNESIUM HYDROXIDE 30 ML UDC GT PRN (21:13)
[2021-03-25] MEDS: ATORVASTATIN 40 MG TABLET GT SCH (21:13)
[2021-03-26] MEDS: JEVITY 1.2 CAL 1,000 ML BOTTLE GT PRN (00:07)
[2021-03-26 01:43] VITALS: BP 103/54
[2021-03-26] MEDS: POLYVINYL ALCOHOL 15 ML BOTTLE OP SCH ×3 (05:09→18:01)
[2021-03-26] MEDS: ACETAMINOPHEN 650 MG/20 ML UDC- SA PATIENTS-PAIN ONLY GT PRN ×2 (05:11→18:02)
[2021-03-26] MEDS: MEROPENEM 500 MG in IV NS 0.9% 50 ML IV SCH ×3 (05:59→20:25)
--- NOTE | 2021-03-26 06:00 | NUR ---
Latest BP 95/57 HR 110 .Calm and comfortable.
[2021-03-26] MEDS: BISACODYL SUPP (10 MG) 10 MG/SUPP.RECT SUPP.RECT RC PRN (06:37)
[2021-03-26 07:14] LABS: HEMOGLOBIN 7.8 g/dL (13.5-17.5)
[2021-03-26 07:29] VITALS: BP 109/65
[2021-03-26 07:40] LABS: CALCIUM, SERUM 8.8 mg/dL (8.5-10.1); CREATININE 0.9 mg/dL (0.6-1.3); POTASSIUM 5.1 mmol/L (3.5-5.1)
[2021-03-26] MEDS: HYDROGEN PEROXIDE 480 ML BOTTLE TP SCH ×2 (08:36→21:16)
[2021-03-26] MEDS: LISINOPRIL (5MG) 5 MG TABLET GT SCH (09:00)
--- NOTE | 2021-03-26 09:06 | NUR ---
WOUND CARE FOLLOW UP: PT SEEN FOR RE-EVALUATION OF RT HIP DEEP TISSUE INJURY IN EVOLUTION. WOUND BED CHANGES NOTED TO INCLUDE SMALLER SIZE, NO INDURATION, PINK AND BROWN COLOR NOTED, NO ODOR, SCANT SEROUS DRAINAGE. WOUND MEASURES 4CM X 9CM X UTD. RECOMMEND CONTINUE PRESENT TREATMENT WITH DAKINS MOISTENED KERLIX. DISCUSSED WITH NURSING STAFF AND WITH [facility] CURRENTLY ON CASE. IN AGREEMENT WITH PLAN OF CARE.
[2021-03-26] MEDS: ASPIRIN 81 MG TAB.CHEW GT SCH (09:30)
[2021-03-26] MEDS: TIMOLOL 0.5% SOLN OPHTH 5 ML BOTTLE EACHEYE SCH ×2 (09:30→17:00)
[2021-03-26] MEDS: PANTOPRAZOLE 40 MG/PACK PACK GT SCH (09:41)
[2021-03-26] MEDS: PROSOURCE / PROSTAT (PYXIS) 30 ML UDC GT SCH ×4 (09:41→21:43)
[2021-03-26] MEDS: MULTIVIT W/MINERALS 1 TAB TABLET GT SCH (09:41)
[2021-03-26] MEDS: PYRIDOXINE HCL 50 MG TABLET GT SCH (09:41)
[2021-03-26] MEDS: HYDROCODONE/APAP 5/325MG TABLET GT SCH ×2 (09:42→21:43)
[2021-03-26] MEDS: BACLOFEN (10 MG) 10 MG TABLET GT SCH (09:42)
[2021-03-26] MEDS: LORATADINE 10 MG TABLET GT SCH (09:43)
[2021-03-26] MEDS: BICALUTAMIDE 50 MG TABLET GT SCH (09:43)
[2021-03-26] MEDS: FOLIC ACID 1 MG TABLET GT SCH (09:43)
[2021-03-26] MEDS: FERROUS SULFATE - FOR SA ONLY 330 MG/7.5 ML UDC GT SCH ×2 (09:43→17:00)
[2021-03-26] MEDS: DOCUSATE SODIUM LIQ 100 MG/10 ML UDC GT SCH ×2 (09:43→17:00)
[2021-03-26] MEDS: [UNRECOGNIZED DRUG - OTHER] GT SCH (09:48)
[2021-03-26] MEDS: ARGININE/GLUTAMINE/CALCIUM BMB 1 EACH POWD.PACK GT SCH ×2 (09:48→17:00)
[2021-03-26] MEDS: POVIDONE-IODINE OINT 28.4 GM TUBE TP SCH ×2 (10:30)
[2021-03-26] MEDS: DAKINS QUARTER STRENGTH (0.125%) 480 ML BOTTLE TOP SCH (10:30)
[2021-03-26] MEDS: VITAMINS A AND D 56.7 GM TUBE TP SCH ×3 (10:30→21:43)
[2021-03-26] MEDS: Z GUARD REMEDY 4 OZ OINT TP SCH ×2 (10:30→21:43)
--- NOTE | 2021-03-26 10:35 | NUR ---
Referred BMP result to Dr. Santillan, BUN 88, VS 99.1, HR 118, 17, 109/65. Yesterday's blood pressure has been running in the 90"s. Dr. Lorenzana said to ask renal team to follow-up. Placed a call to Dr. Lemus's office, spoke with Bubba from answering service said Dr. Rust is foundation digger. Awaiting for call back.
[2021-03-26] MEDS: ALBUTEROL FS 2.5 MG/0.5 ML VIAL.NEB NEB PRN (13:06)
[2021-03-26] MEDS: IPRATROPIUM HALF ST 0.25 MG/1.25 ML VIAL.NEB NEB PRN (13:06)
[2021-03-26 13:57] VITALS: BP 99/63
--- NOTE | 2021-03-26 15:50 | NUR ---
Placed a call to Dr. Lemus's office to follow-up renal consult. Requested to page personal lines agent for Dr. Lemus awaiting for return call.
--- NOTE | 2021-03-26 16:40 | NUR ---
Received a call from Dr. Blood, customer acquisition manager for Dr. Albright, relayed recent BMP BUN and Hbg result to . Stated to monitor for now, ordered repeat CBC and BMP in AM. According to MD increased BUN could be the result of dropped in Hbg. Endorsed.
--- NOTE | 2021-03-26 19:00 | NUR ---
Updated patient's sister Shae of current laboratory result, new orders including wound condition. Informed Ms. Kaufman that patient's BUN is elevated, highway inspector ordered to repeat CBC and BMP in AM. Appreciated the update provided.
[2021-03-26 19:29] VITALS: BP 111/52
--- NOTE | 2021-03-26 19:30 | NUR ---
Received an order from Dr. Sullivan for KUB d/t to emesis. Will carry out orders.
[2021-03-26] MEDS: ATORVASTATIN 40 MG TABLET GT SCH (21:43)
[2021-03-26] MEDS: LATANOPROST EYE DROP 0.005% 2.5 ML BOTTLE EACHEYE SCH (21:43)
[2021-03-27] MEDS: POLYVINYL ALCOHOL 15 ML BOTTLE OP SCH ×4 (00:05→18:00)
[2021-03-27] MEDS: JEVITY 1.2 CAL 1,000 ML BOTTLE GT PRN (00:18)
[2021-03-27 00:41] VITALS: BP 90/50
[2021-03-27 02:56] LABS: OCCULT BLOOD STOOL NEGATIVE (NEGATIVE)
[2021-03-27] MEDS: MEROPENEM 500 MG in IV NS 0.9% 50 ML IV SCH ×2 (05:00→13:00)
--- NOTE | 2021-03-27 06:10 | NUR ---
Noted with blood in the urine moderate amount.Patient with large amount of secretions frequent suctioning provided. No emesis ,had a bowel movement pasty moderate amount. Occult blood stool negative result.Will endorse to oncoming shift.
[2021-03-27 07:12] VITALS: BP 86/58
[2021-03-27 07:48] LABS: BASOPHILS # (AUTO) 0.1 K/uL (0.0-0.2); BASOPHILS % (AUTO) 0.5 % (0.0-2.0); EOSINOPHILS % (AUTO) 2.2 % (0.0-6.0); LYMPHOCYTES # (AUTO) 2.1 K/uL (0.8-4.8); LYMPHOCYTES % (AUTO) 16.4 % (20.0-44.0); MEAN CORPUSCULAR HGB CONC 32 g/dl (31.0-36.0); MEAN CORPUSCULAR VOLUME 92 fL (80-96); MONOCYTES # (AUTO) 0.9 K/uL (0.1-1.30); MONOCYTES % (AUTO) 7.5 % (2.0-12.0); NEUTROPHILS # (AUTO) 9.2 K/uL (1.8-8.9); NEUTROPHILS % (AUTO) 73.4 % (43.0-81.0); PLATELET COUNT (AUTO) 513 K/uL (150-450); WHITE BLOOD COUNT (AUTO) 12.6 K/uL (4.3-11.0)
[2021-03-27 08:09] LABS: RED BLOOD CELL COUNT(AUTO) 1.87 MIL/uL (4.5-6.0)
[2021-03-27 08:10] LABS: HEMATOCRIT 17 % (39-51); HEMOGLOBIN 5.6 g/dL (13.5-17.5)
[2021-03-27 08:18] LABS: CALCIUM, SERUM 8.8 mg/dL (8.5-10.1); CREATININE 1.1 mg/dL (0.6-1.3); POTASSIUM 5.4 mmol/L (3.5-5.1)
[2021-03-27 08:29] LABS: EOSINOPHILS % (MANUAL) 2 % (0-4); LYMPHOCYTES % (MANUAL) 13 % (16-48); MONOCYTES % (MANUAL) 5 % (0-11.0); NEUTROPHILS % (MANUAL) 80 (42-76)
--- NOTE | 2021-03-27 08:40 | NUR ---
Relayed CBC and BMP result to Dr. Santillan with Hbg 5.6, Hct 17, K+5.4, Na147, BUN 88. Resident lethargic. Initial B/P in the beginning of shift 86/58 then repeated VS after 30 minutes obtained slightly higher blood pressure, 93/59, HR 108-112, 97.9, 18 96%. Dr. Santillan ordered to transfer resident to hospital with diagnosis of severe anemia.
[2021-03-27] MEDS: HYDROGEN PEROXIDE 480 ML BOTTLE TP SCH (08:49)
--- NOTE | 2021-03-27 08:50 | NUR ---
Nursing covering and lining supervisor made aware of the order to transfer patient, ER department informed. Resident's sister Shae notified of patient's transfer to ER.
[2021-03-27] MEDS: TIMOLOL 0.5% SOLN OPHTH 5 ML BOTTLE EACHEYE SCH ×2 (09:51→17:32)
[2021-03-27] MEDS: FERROUS SULFATE - FOR SA ONLY 330 MG/7.5 ML UDC GT SCH ×2 (09:51→17:32)
[2021-03-27] MEDS: POVIDONE-IODINE OINT 28.4 GM TUBE TP SCH ×2 (09:51)
[2021-03-27] MEDS: LORATADINE 10 MG TABLET GT SCH (09:51)
[2021-03-27] MEDS: BACLOFEN (10 MG) 10 MG TABLET GT SCH (09:51)
[2021-03-27] MEDS: FOLIC ACID 1 MG TABLET GT SCH (09:51)
[2021-03-27] MEDS: MULTIVIT W/MINERALS 1 TAB TABLET GT SCH (09:51)
[2021-03-27] MEDS: PANTOPRAZOLE 40 MG/PACK PACK GT SCH (09:51)
[2021-03-27] MEDS: PROSOURCE / PROSTAT (PYXIS) 30 ML UDC GT SCH ×3 (09:51→17:32)
[2021-03-27] MEDS: ARGININE/GLUTAMINE/CALCIUM BMB 1 EACH POWD.PACK GT SCH ×2 (09:51→17:32)
[2021-03-27] MEDS: HYDROCODONE/APAP 5/325MG TABLET GT SCH (09:51)
[2021-03-27] MEDS: ASPIRIN 81 MG TAB.CHEW GT SCH (09:51)
[2021-03-27] MEDS: DOCUSATE SODIUM LIQ 100 MG/10 ML UDC GT SCH ×2 (09:51→17:32)
[2021-03-27] MEDS: LISINOPRIL (5MG) 5 MG TABLET GT SCH (09:51)
[2021-03-27] MEDS: Z GUARD REMEDY 4 OZ OINT TP SCH (09:51)
[2021-03-27] MEDS: BICALUTAMIDE 50 MG TABLET GT SCH (09:51)
[2021-03-27] MEDS: VITAMINS A AND D 56.7 GM TUBE TP SCH ×2 (09:51)
[2021-03-27] MEDS: DAKINS QUARTER STRENGTH (0.125%) 480 ML BOTTLE TOP SCH (09:51)
[2021-03-27] MEDS: PYRIDOXINE HCL 50 MG TABLET GT SCH (09:51)
[2021-03-27] MEDS: VANCOMYCIN HCL 0.75 GM in IV D5W 250 ML IV SCH (10:00)
--- NOTE | 2021-03-27 10:05 | NUR ---
Resident transferred to ER for severe anemia with Hbg 5.6, Hct 17. Report given to RN Natalya and ER doctor on duty . Recent laboratory result, CBC and BMP, history and physical, progress notes from consultants, physician's orders, med list and copy of Covid-19 vaccination record sent with patient. Resident stable upon transfer, in no acute signs of respiratory or cardio distress. wheeled via bed, connected to ventilator accompanied by RT and licensed nurse. Informed receiving RN that IV Vancomycin due at 10:00 not given. All other 0900 am medications via GT given. Midline in the R upper arm in place with dressing intact. Resident's wound dressing clean. F/C in place draining yellow casper urine.
[2021-03-27] MEDS ORDERED: NUTR1PAC14 GT (11:05)
[2021-03-27] MEDS ORDERED: MULT-447 GT (11:05)
[2021-03-27] MEDS ORDERED: ALLA266C2 TP (11:05)
[2021-03-27] MEDS ORDERED: PRUNELAX GT (11:05)
[2021-03-27] MEDS ORDERED: POVI30LI TP (11:05)
[2021-03-27] MEDS ORDERED: POLY15DR40 EACHEYE (11:05)
[2021-03-27] MEDS ORDERED: VANC250V IV (11:05)
[2021-03-27] MEDS ORDERED: PETR113O TP (11:05)
[2021-03-27] MEDS ORDERED: ACET-868 GT (11:05)
[2021-03-27] MEDS ORDERED: MERO500V23 IV (11:05)
[2021-03-27] MEDS ORDERED: HYDR-3972 GT (11:05)
[2021-03-27] MEDS ORDERED: HYDR1SOL TD (11:05)
[2021-03-27] MEDS ORDERED: SODI473S8 TD (11:05)
[2021-03-28] MEDS: VITAMINS A AND D 56.7 GM TUBE TP SCH (09:00)
[2021-03-29 08:08] LABS: CALCIUM, SERUM 8.6 mg/dL (8.5-10.1)
[2021-03-29] MEDS: VITAMINS A AND D 56.7 GM TUBE TP SCH (09:00)
[2021-03-30] MEDS: VITAMINS A AND D 56.7 GM TUBE TP SCH (09:00)
[2021-03-31] MEDS: VITAMINS A AND D 56.7 GM TUBE TP SCH (09:00)
--- NOTE | 2021-03-31 11:38 | NUR ---
Facility Update: notified family via [employer] Text that, " Facility Update: No [facility] Sub-Acute residents or employees tested positive for COVID-19 this week. [facility] continues to test Sub-Acute residents & healthcare personnel as recommended by [facility]. [facility] continues to follow infection control protocols and screen our residents and staff daily for symptoms".
[2021-04-01] MEDS: VITAMINS A AND D 56.7 GM TUBE TP SCH (09:00)
[2021-04-01] MEDS ORDERED: MERO500V23 IV (10:05)
--- NOTE | 2021-04-01 15:00 | NUR ---
Readmitted pt from [facility] with diagnoses of respiratory failure, tracheostomy, dysphagia with GT, CVA with toxic metabolic encephalopathy, UTI, HTN, CAD, BPH, GERD, history of testicular CA. Pt had blood transfusion and PEG replacement when he was in Med Surg. Pt on mechanical ventilator with setting of AC14 VT 450 FiO2 40% PEEP +5. Started GT feeding Jevity 1.2 at 55 mL/hr. HOB elevated for aspiration precaution. Body assessment done. Made pt clean and comfortable in bed. Call light within easy reach. Verified orders with Dr Santillan. Notified pt's sister pt is back in Subacute.
--- NOTE | 2021-04-01 15:10 | NUR ---
RT NOTE PT TRANSFERRED FROM 329 TO 274 WITH NO COMPLICATIONS.
--- NOTE | 2021-04-01 15:10 | NUR ---
RT NOTE: PATIENT RECEIVED WITH #8 SHILEY TRACH ON MECHANICAL VENT. SETTINGS PER MD ORDER. ALARMS VERIFIED AND AUDIBLE. SUCTIONED AND LAVAGED LARGE AMOUNT OF THICK COLES SECRETIONS.AMBU BAG AND NEW TRACH AT [facility].
[2021-04-01 17:27] VITALS: BP 127/94
[2021-04-01] MEDS ORDERED: IPRATROPIUM HALF ST 0.25 MG/1.25 ML VIAL.NEB NEB PRN (18:30)
[2021-04-01] MEDS ORDERED: NA PHOS,M-B/NA PHOS,DI-BA 1 EA ENEMA RC PRN (18:30)
[2021-04-01] MEDS ORDERED: ALBUTEROL FS 2.5 MG/0.5 ML VIAL.NEB NEB PRN (18:30)
[2021-04-01] MEDS: JEVITY 1.2 CAL 1,000 ML BOTTLE GT PRN (18:57)
[2021-04-01] MEDS: MAGNESIUM HYDROXIDE 30 ML UDC GT PRN (18:57)
[2021-04-01] MEDS: ACETAMINOPHEN 650 MG/20 ML UDC- SA PATIENTS-PAIN ONLY GT PRN (18:58)
[2021-04-01] MEDS ORDERED: Z GUARD REMEDY 4 OZ OINT TP PRN (19:00)
[2021-04-01 19:18] VITALS: BP 112/61
[2021-04-01] MEDS: ALBUTEROL FS 2.5 MG/0.5 ML VIAL.NEB NEB SCH (19:57)
[2021-04-01] MEDS: HYDROGEN PEROXIDE 480 ML BOTTLE TP SCH (19:57)
[2021-04-01] MEDS: IPRATROPIUM HALF ST 0.25 MG/1.25 ML VIAL.NEB NEB SCH (19:57)
--- NOTE | 2021-04-01 20:17 | NUR ---
Seen by ANGELLA Porras no new orders given for now.
[2021-04-01] MEDS: MEROPENEM 500 MG in IV NS 0.9% 50 ML IV SCH (21:00)
[2021-04-01] MEDS: HYDROCODONE/APAP 5/325MG TABLET GT SCH (21:12)
[2021-04-01] MEDS: Z GUARD REMEDY 4 OZ OINT TP SCH (21:12)
[2021-04-01] MEDS: PROSOURCE / PROSTAT (PYXIS) 30 ML UDC GT SCH (21:12)
[2021-04-01] MEDS: LATANOPROST EYE DROP 0.005% 2.5 ML BOTTLE EACHEYE SCH (21:12)
[2021-04-01] MEDS: ATORVASTATIN 40 MG TABLET GT SCH (21:13)
[2021-04-01] MEDS: POLYVINYL ALCOHOL 15 ML BOTTLE OP SCH (23:23)
[2021-04-02 00:14] VITALS: BP 97/63
[2021-04-02] MEDS: IPRATROPIUM HALF ST 0.25 MG/1.25 ML VIAL.NEB NEB SCH ×4 (01:39→19:28)
[2021-04-02] MEDS: ALBUTEROL FS 2.5 MG/0.5 ML VIAL.NEB NEB SCH ×4 (01:39→19:28)
[2021-04-02] MEDS: MEROPENEM 500 MG in IV NS 0.9% 50 ML IV SCH ×3 (05:00→21:11)
[2021-04-02] MEDS: POLYVINYL ALCOHOL 15 ML BOTTLE OP SCH ×3 (05:05→17:20)
[2021-04-02 07:51] VITALS: BP 112/72
[2021-04-02] MEDS: HYDROGEN PEROXIDE 480 ML BOTTLE TP SCH ×2 (08:13→20:35)
[2021-04-02] MEDS: VITAMINS A AND D 56.7 GM TUBE TP SCH (09:00)
[2021-04-02] MEDS: DAKINS QUARTER STRENGTH (0.125%) 480 ML BOTTLE TOP SCH (09:00)
[2021-04-02] MEDS: TIMOLOL 0.5% SOLN OPHTH 5 ML BOTTLE EACHEYE SCH ×2 (09:20→17:19)
[2021-04-02] MEDS: ASPIRIN 81 MG TAB.CHEW GT SCH (09:21)
[2021-04-02] MEDS: BICALUTAMIDE 50 MG TABLET GT SCH (09:21)
[2021-04-02] MEDS: DOCUSATE SODIUM LIQ 100 MG/10 ML UDC GT SCH ×2 (09:22→17:19)
[2021-04-02] MEDS: LORATADINE 10 MG TABLET GT SCH (09:22)
[2021-04-02] MEDS: BACLOFEN (10 MG) 10 MG TABLET GT SCH (09:23)
[2021-04-02] MEDS: FERROUS SULFATE - FOR SA ONLY 330 MG/7.5 ML UDC GT SCH ×2 (09:23→17:19)
[2021-04-02] MEDS: FOLIC ACID 1 MG TABLET GT SCH (09:23)
[2021-04-02] MEDS: PANTOPRAZOLE 40 MG/PACK PACK GT SCH (09:24)
[2021-04-02] MEDS: HYDROCODONE/APAP 5/325MG TABLET GT SCH ×2 (09:24→21:16)
[2021-04-02] MEDS: PROSOURCE / PROSTAT (PYXIS) 30 ML UDC GT SCH ×4 (09:24→21:16)
[2021-04-02] MEDS: LISINOPRIL (5MG) 5 MG TABLET GT SCH (09:24)
[2021-04-02] MEDS: MULTIVIT W/MINERALS 1 TAB TABLET GT SCH (09:24)
[2021-04-02] MEDS: POVIDONE-IODINE OINT 28.4 GM TUBE TP SCH ×2 (09:25)
[2021-04-02] MEDS: PYRIDOXINE HCL 50 MG TABLET GT SCH (09:25)
[2021-04-02] MEDS: Z GUARD REMEDY 4 OZ OINT TP SCH ×2 (09:25→21:49)
[2021-04-02] MEDS: ARGININE/GLUTAMINE/CALCIUM BMB 1 EACH POWD.PACK GT SCH ×2 (09:26→17:20)
[2021-04-02] MEDS: VANCOMYCIN HCL 0.75 GM in IV D5W 250 ML IV SCH (17:00)
[2021-04-02] MEDS: JEVITY 1.2 CAL 1,000 ML BOTTLE GT PRN (17:43)
[2021-04-02 19:57] VITALS: BP 97/58
[2021-04-02] MEDS: LATANOPROST EYE DROP 0.005% 2.5 ML BOTTLE EACHEYE SCH (21:16)
[2021-04-02] MEDS: ATORVASTATIN 40 MG TABLET GT SCH (21:16)
[2021-04-02 23:58] VITALS: BP 97/60
[2021-04-03] MEDS: POLYVINYL ALCOHOL 15 ML BOTTLE OP SCH ×4 (00:42→17:03)
[2021-04-03] MEDS: ALBUTEROL FS 2.5 MG/0.5 ML VIAL.NEB NEB SCH ×4 (02:08→19:58)
[2021-04-03] MEDS: IPRATROPIUM HALF ST 0.25 MG/1.25 ML VIAL.NEB NEB SCH ×4 (02:08→19:58)
[2021-04-03] MEDS: MEROPENEM 500 MG in IV NS 0.9% 50 ML IV SCH ×3 (05:53→20:16)
[2021-04-03 06:55] LABS: BASOPHILS % (AUTO) 0.3 % (0.0-2.0); EOSINOPHILS % (AUTO) 3.4 % (0.0-6.0); HEMATOCRIT 27 % (39-51); HEMOGLOBIN 8.5 g/dL (13.5-17.5); LYMPHOCYTES # (AUTO) 1.3 K/uL (0.8-4.8); LYMPHOCYTES % (AUTO) 10.7 % (20.0-44.0); MEAN CORPUSCULAR HGB CONC 32 g/dl (31.0-36.0); MEAN CORPUSCULAR VOLUME 94 fL (80-96); MONOCYTES # (AUTO) 0.5 K/uL (0.1-1.30); MONOCYTES % (AUTO) 4.5 % (2.0-12.0); NEUTROPHILS # (AUTO) 9.8 K/uL (1.8-8.9); NEUTROPHILS % (AUTO) 81.1 % (43.0-81.0); PLATELET COUNT (AUTO) 323 K/uL (150-450); RED BLOOD CELL COUNT(AUTO) 2.87 MIL/uL (4.5-6.0); WHITE BLOOD COUNT (AUTO) 12.1 K/uL (4.3-11.0)
[2021-04-03 07:43] LABS: CALCIUM, SERUM 8.2 mg/dL (8.5-10.1); CREATININE 0.8 mg/dL (0.6-1.3); POTASSIUM 4.5 mmol/L (3.5-5.1)
[2021-04-03 08:00] VITALS: BP 107/64
[2021-04-03] MEDS: HYDROGEN PEROXIDE 480 ML BOTTLE TP SCH ×2 (08:09→20:15)
[2021-04-03] MEDS: DOCUSATE SODIUM LIQ 100 MG/10 ML UDC GT SCH ×2 (09:00→17:03)
[2021-04-03] MEDS: VITAMINS A AND D 56.7 GM TUBE TP SCH (09:00)
[2021-04-03] MEDS: PYRIDOXINE HCL 50 MG TABLET GT SCH (09:00)
[2021-04-03] MEDS: DAKINS QUARTER STRENGTH (0.125%) 480 ML BOTTLE TOP SCH (09:00)
[2021-04-03] MEDS: ASPIRIN 81 MG TAB.CHEW GT SCH (09:00)
[2021-04-03] MEDS: ARGININE/GLUTAMINE/CALCIUM BMB 1 EACH POWD.PACK GT SCH ×2 (09:00→17:03)
[2021-04-03] MEDS: LISINOPRIL (5MG) 5 MG TABLET GT SCH (09:00)
[2021-04-03] MEDS: PANTOPRAZOLE 40 MG/PACK PACK GT SCH (09:00)
[2021-04-03] MEDS: BICALUTAMIDE 50 MG TABLET GT SCH (09:00)
[2021-04-03] MEDS: MULTIVIT W/MINERALS 1 TAB TABLET GT SCH (09:00)
[2021-04-03] MEDS: BACLOFEN (10 MG) 10 MG TABLET GT SCH (09:00)
[2021-04-03] MEDS: [UNRECOGNIZED DRUG - OTHER] GT SCH (09:00)
[2021-04-03] MEDS: TIMOLOL 0.5% SOLN OPHTH 5 ML BOTTLE EACHEYE SCH ×2 (09:00→17:03)
[2021-04-03] MEDS: POVIDONE-IODINE OINT 28.4 GM TUBE TP SCH ×2 (09:00)
[2021-04-03] MEDS: Z GUARD REMEDY 4 OZ OINT TP SCH ×2 (09:00→21:16)
[2021-04-03] MEDS: PROSOURCE / PROSTAT (PYXIS) 30 ML UDC GT SCH ×4 (09:00→21:16)
[2021-04-03] MEDS: HYDROCODONE/APAP 5/325MG TABLET GT SCH ×2 (09:00→21:16)
[2021-04-03] MEDS: LORATADINE 10 MG TABLET GT SCH (09:00)
[2021-04-03] MEDS: FERROUS SULFATE - FOR SA ONLY 330 MG/7.5 ML UDC GT SCH ×2 (09:00→17:03)
[2021-04-03] MEDS: FOLIC ACID 1 MG TABLET GT SCH (09:00)
--- NOTE | 2021-04-03 09:15 | NUR ---
Relayed CBC and BMP result to Dr. Santillan, no new order given at this time.
[2021-04-03] MEDS: JEVITY 1.2 CAL 1,000 ML BOTTLE GT PRN (15:44)
[2021-04-03 20:54] VITALS: BP 107/74
[2021-04-03] MEDS: LATANOPROST EYE DROP 0.005% 2.5 ML BOTTLE EACHEYE SCH (21:16)
[2021-04-03] MEDS: ATORVASTATIN 40 MG TABLET GT SCH (21:16)
[2021-04-03 22:00] VITALS: BP 108/61
[2021-04-04] MEDS: POLYVINYL ALCOHOL 15 ML BOTTLE OP SCH ×4 (00:04→18:23)
[2021-04-04 01:20] VITALS: BP 110/68
[2021-04-04] MEDS: IPRATROPIUM HALF ST 0.25 MG/1.25 ML VIAL.NEB NEB SCH ×4 (02:29→19:30)
[2021-04-04] MEDS: ALBUTEROL FS 2.5 MG/0.5 ML VIAL.NEB NEB SCH ×4 (02:29→19:30)
[2021-04-04] MEDS: MEROPENEM 500 MG in IV NS 0.9% 50 ML IV SCH ×3 (05:28→21:51)
[2021-04-04 08:00] VITALS: BP 104/69
[2021-04-04 08:16] LABS: CALCIUM, SERUM 8.2 mg/dL (8.5-10.1); CREATININE 0.8 mg/dL (0.6-1.3); POTASSIUM 4.7 mmol/L (3.5-5.1)
[2021-04-04] MEDS: HYDROGEN PEROXIDE 480 ML BOTTLE TP SCH ×2 (08:30→20:31)
[2021-04-04] MEDS: DOCUSATE SODIUM LIQ 100 MG/10 ML UDC GT SCH ×2 (09:00→17:25)
[2021-04-04] MEDS: VITAMINS A AND D 56.7 GM TUBE TP SCH (09:00)
[2021-04-04] MEDS: DAKINS QUARTER STRENGTH (0.125%) 480 ML BOTTLE TOP SCH (09:00)
[2021-04-04] MEDS: ARGININE/GLUTAMINE/CALCIUM BMB 1 EACH POWD.PACK GT SCH ×2 (09:00→17:25)
[2021-04-04] MEDS: FOLIC ACID 1 MG TABLET GT SCH (09:00)
[2021-04-04] MEDS: BICALUTAMIDE 50 MG TABLET GT SCH (09:00)
[2021-04-04] MEDS: TIMOLOL 0.5% SOLN OPHTH 5 ML BOTTLE EACHEYE SCH ×2 (09:00→17:24)
[2021-04-04] MEDS: PYRIDOXINE HCL 50 MG TABLET GT SCH (09:00)
[2021-04-04] MEDS: Z GUARD REMEDY 4 OZ OINT TP SCH ×2 (09:00→20:22)
[2021-04-04] MEDS: POVIDONE-IODINE OINT 28.4 GM TUBE TP SCH ×2 (09:00)
[2021-04-04] MEDS: FERROUS SULFATE - FOR SA ONLY 330 MG/7.5 ML UDC GT SCH ×2 (09:00→17:25)
[2021-04-04] MEDS: PROSOURCE / PROSTAT (PYXIS) 30 ML UDC GT SCH ×4 (09:00→20:22)
[2021-04-04] MEDS: ASPIRIN 81 MG TAB.CHEW GT SCH (09:00)
[2021-04-04] MEDS: LISINOPRIL (5MG) 5 MG TABLET GT SCH (09:00)
[2021-04-04] MEDS: BACLOFEN (10 MG) 10 MG TABLET GT SCH (09:00)
[2021-04-04] MEDS: LORATADINE 10 MG TABLET GT SCH (09:00)
[2021-04-04] MEDS: MULTIVIT W/MINERALS 1 TAB TABLET GT SCH (09:00)
[2021-04-04] MEDS: PANTOPRAZOLE 40 MG/PACK PACK GT SCH (09:00)
[2021-04-04] MEDS: HYDROCODONE/APAP 5/325MG TABLET GT SCH ×2 (10:00→20:22)
[2021-04-04] MEDS: VANCOMYCIN HCL 0.75 GM in IV D5W 250 ML IV SCH (17:00)
[2021-04-04] MEDS: JEVITY 1.2 CAL 1,000 ML BOTTLE GT PRN (17:26)
[2021-04-04 20:31] VITALS: BP 110/69
[2021-04-04] MEDS: ATORVASTATIN 40 MG TABLET GT SCH (21:36)
[2021-04-04] MEDS: LATANOPROST EYE DROP 0.005% 2.5 ML BOTTLE EACHEYE SCH (21:36)
[2021-04-05] MEDS: POLYVINYL ALCOHOL 15 ML BOTTLE OP SCH ×4 (00:23→18:40)
[2021-04-05 01:26] VITALS: BP 136/72
[2021-04-05] MEDS: ALBUTEROL FS 2.5 MG/0.5 ML VIAL.NEB NEB SCH ×4 (02:06→19:48)
[2021-04-05] MEDS: IPRATROPIUM HALF ST 0.25 MG/1.25 ML VIAL.NEB NEB SCH ×4 (02:06→19:48)
[2021-04-05] MEDS: MEROPENEM 500 MG in IV NS 0.9% 50 ML IV SCH ×3 (05:00→21:00)
[2021-04-05 07:49] VITALS: BP 97/61
[2021-04-05 07:52] LABS: CALCIUM, SERUM 8.5 mg/dL (8.5-10.1); CREATININE 0.8 mg/dL (0.6-1.3); POTASSIUM 4.7 mmol/L (3.5-5.1)
[2021-04-05] MEDS: VITAMINS A AND D 56.7 GM TUBE TP SCH (09:00)
[2021-04-05] MEDS: Z GUARD REMEDY 4 OZ OINT TP SCH ×2 (09:00→20:26)
[2021-04-05] MEDS: POVIDONE-IODINE OINT 28.4 GM TUBE TP SCH ×2 (09:00)
[2021-04-05] MEDS: LISINOPRIL (5MG) 5 MG TABLET GT SCH (09:00)
[2021-04-05] MEDS: HYDROGEN PEROXIDE 480 ML BOTTLE TP SCH ×2 (09:18→21:20)
[2021-04-05] MEDS: FERROUS SULFATE - FOR SA ONLY 330 MG/7.5 ML UDC GT SCH ×2 (09:52→16:22)
[2021-04-05] MEDS: TIMOLOL 0.5% SOLN OPHTH 5 ML BOTTLE EACHEYE SCH ×2 (09:52→16:22)
[2021-04-05] MEDS: BICALUTAMIDE 50 MG TABLET GT SCH (09:52)
[2021-04-05] MEDS: [UNRECOGNIZED DRUG - OTHER] GT SCH (09:52)
[2021-04-05] MEDS: ASPIRIN 81 MG TAB.CHEW GT SCH (09:52)
[2021-04-05] MEDS: ARGININE/GLUTAMINE/CALCIUM BMB 1 EACH POWD.PACK GT SCH ×2 (09:52→16:22)
[2021-04-05] MEDS: LORATADINE 10 MG TABLET GT SCH (09:52)
[2021-04-05] MEDS: DOCUSATE SODIUM LIQ 100 MG/10 ML UDC GT SCH ×2 (09:52→16:22)
[2021-04-05] MEDS: FOLIC ACID 1 MG TABLET GT SCH (09:52)
[2021-04-05] MEDS: BACLOFEN (10 MG) 10 MG TABLET GT SCH (09:52)
[2021-04-05] MEDS: HYDROCODONE/APAP 5/325MG TABLET GT SCH ×2 (09:53→20:25)
[2021-04-05] MEDS: PROSOURCE / PROSTAT (PYXIS) 30 ML UDC GT SCH ×4 (09:55→20:26)
[2021-04-05] MEDS: PYRIDOXINE HCL 50 MG TABLET GT SCH (09:55)
[2021-04-05] MEDS: MULTIVIT W/MINERALS 1 TAB TABLET GT SCH (09:55)
[2021-04-05] MEDS: DAKINS QUARTER STRENGTH (0.125%) 480 ML BOTTLE TOP SCH (09:55)
[2021-04-05] MEDS: PANTOPRAZOLE 40 MG/PACK PACK GT SCH (09:55)
[2021-04-05 12:24] VITALS: BP 97/67
[2021-04-05] MEDS: JEVITY 1.2 CAL 1,000 ML BOTTLE GT PRN (18:51)
--- NOTE | 2021-04-05 20:00 | NUR ---
RN NOTES Pt in stable condition. Noted with blood tinged urine in drainage bag. Irrigated andres catheter, no resistance noted. Will continue to monitor.
[2021-04-05 20:06] VITALS: BP 109/64
[2021-04-05] MEDS: ATORVASTATIN 40 MG TABLET GT SCH (21:18)
[2021-04-05] MEDS: LATANOPROST EYE DROP 0.005% 2.5 ML BOTTLE EACHEYE SCH (21:18)
[2021-04-06] MEDS: POLYVINYL ALCOHOL 15 ML BOTTLE OP SCH ×4 (00:12→18:44)
[2021-04-06] MEDS: ALBUTEROL FS 2.5 MG/0.5 ML VIAL.NEB NEB SCH ×4 (01:52→20:24)
[2021-04-06] MEDS: IPRATROPIUM HALF ST 0.25 MG/1.25 ML VIAL.NEB NEB SCH ×4 (01:52→20:24)
[2021-04-06] MEDS: MEROPENEM 500 MG in IV NS 0.9% 50 ML IV SCH ×3 (05:58→21:32)
--- NOTE | 2021-04-06 06:20 | NUR ---
RN NOTES Noted with minimal amount of blood tinged urine. Pt in stable condition.
[2021-04-06 07:10] LABS: CALCIUM, SERUM 8.7 mg/dL (8.5-10.1); CREATININE 0.9 mg/dL (0.6-1.3); POTASSIUM 4.5 mmol/L (3.5-5.1)
[2021-04-06 07:48] VITALS: BP 94/53
[2021-04-06] MEDS: HYDROGEN PEROXIDE 480 ML BOTTLE TP SCH ×2 (07:54→20:24)
[2021-04-06] MEDS: Z GUARD REMEDY 4 OZ OINT TP SCH ×2 (09:00→20:21)
[2021-04-06] MEDS: LISINOPRIL (5MG) 5 MG TABLET GT SCH (09:00)
[2021-04-06] MEDS: ARGININE/GLUTAMINE/CALCIUM BMB 1 EACH POWD.PACK GT SCH ×2 (09:00→17:00)
[2021-04-06] MEDS: POVIDONE-IODINE OINT 28.4 GM TUBE TP SCH ×2 (09:00)
[2021-04-06] MEDS: FERROUS SULFATE - FOR SA ONLY 330 MG/7.5 ML UDC GT SCH ×2 (09:00→17:00)
[2021-04-06] MEDS: VITAMINS A AND D 56.7 GM TUBE TP SCH (09:00)
[2021-04-06] MEDS: PROSOURCE / PROSTAT (PYXIS) 30 ML UDC GT SCH ×4 (09:00→20:21)
[2021-04-06] MEDS: FOLIC ACID 1 MG TABLET GT SCH (09:00)
[2021-04-06] MEDS: PANTOPRAZOLE 40 MG/PACK PACK GT SCH (09:00)
[2021-04-06] MEDS: BICALUTAMIDE 50 MG TABLET GT SCH (09:00)
[2021-04-06] MEDS: BACLOFEN (10 MG) 10 MG TABLET GT SCH (09:00)
[2021-04-06] MEDS: DAKINS QUARTER STRENGTH (0.125%) 480 ML BOTTLE TOP SCH (09:00)
[2021-04-06] MEDS: PYRIDOXINE HCL 50 MG TABLET GT SCH (09:00)
[2021-04-06] MEDS: MULTIVIT W/MINERALS 1 TAB TABLET GT SCH (09:00)
[2021-04-06] MEDS: DOCUSATE SODIUM LIQ 100 MG/10 ML UDC GT SCH ×2 (09:00→17:00)
[2021-04-06] MEDS: LORATADINE 10 MG TABLET GT SCH (09:00)
[2021-04-06] MEDS: ASPIRIN 81 MG TAB.CHEW GT SCH (09:00)
[2021-04-06] MEDS: TIMOLOL 0.5% SOLN OPHTH 5 ML BOTTLE EACHEYE SCH ×2 (09:00→17:00)
[2021-04-06] MEDS: HYDROCODONE/APAP 5/325MG TABLET GT SCH ×2 (10:00→20:20)
--- NOTE | 2021-04-06 10:00 | NUR ---
Seen by Dr Sullivan. Informed him that pt has hematuria. Lovenox on hold.
--- NOTE | 2021-04-06 12:50 | NUR ---
Relayed BMP result to Dr Santillan and informed him that pt has hematuria.
[2021-04-06 13:10] VITALS: BP 99/58
--- NOTE | 2021-04-06 16:00 | NUR ---
Informed Dr Santillan that pt's sister Shae just called and is concerned about hematuria. Lovenox already on hold. Received order to hold Aspirin as well. He asked if pt was already seen by Dr Guerrero when he was in the acute hospital. Informed him that it does not seem like Dr Guerrero already saw pt (based on notes from acute hospital). Pt afebrile, T 98.[address] Santillan to call Shae per her request. Gave him her phone number.
--- NOTE | 2021-04-06 16:21 | NUR ---
ASSESSMENT FOR ADDITIONAL COVID-19 DOSE: Pt does not meet these following criteria of an immunocompromised individual: Been receiving active cancer treatment for tumors or cancers of the blood Received an organ transplant and are taking medicine to suppress the immune system Received a stem cell transplant within the last 2 years or are taking medicine to suppress the immune system Moderate or severe primary immunodeficiency (such as DiGeorge Syndrome, Wiskott-Myah Syndrome) Advanced or untreated HIV infection Active treatment with high-dose corticosteroids or other drugs that may suppress immune response
--- NOTE | 2021-04-06 18:29 | NUR ---
Around 1746, pt's pulse oximeter was alarming, charge nurse went to see pt. O2 sat 77% on the machine, pt having SOB. Suctioned pt, but O2 sat did not improve, O2 sat 60s-70s. Titrated FiO2 to 100%. Called RT. O2 sat improved to 98% on FiO2 100% but pt still having SOB. Checked pt's vital signs, BP 40/28 so rechecked BP again and it was 30/19. Informed Dr Santillan. He ordered to give a bolus of NS 1 L STAT. Called rapid response team. JUNIOR UNDERWRITER arrived within a couple of minutes. Started NS bolus. Assessed BP several times. One BP reading was 150/110. Checked BP again after a few minutes and SBP was 60-70. After 400 mL NS bolus was given, BP was 109/59 on a manual sphygmomanometer. FiO2 was being titrated down, pt maintaining his O2 sat 97-98%. Pt was repositioned and Tylenol administered. BP 125/75 P 117 O2 sat 98% R [address] Santillan had previously said to transfer pt out to ER. Informed him of current condition and asked him if he still wants to transfer pt, he said no. He ordered CXR, ABG, and CBC. He also said he already spoke with pt's sister. Pt still having hematuria at this time.
[2021-04-06] MEDS ORDERED: IV NS 0.9% 1,000 ML IV ONE (19:30)
--- NOTE | 2021-04-06 19:30 | NUR ---
RN NOTES Received pt in bed with dyspnea, O2 saturation 94% on FiO2 40%, B/P 91/52, HR 103, RR 36, T 99.0. Suctioned moderate amount of yellowish secretions. Noted with blood tinged urine. Awaiting for blood draw and CXR to be done. Will continue to monitor.
[2021-04-06 19:50] VITALS: BP 91/52
[2021-04-06 19:54] LABS: BASOPHILS # (AUTO) 0.1 K/uL (0.0-0.2); BASOPHILS % (AUTO) 0.8 % (0.0-2.0); EOSINOPHILS % (AUTO) 3.7 % (0.0-6.0); HEMATOCRIT 24 % (39-51); HEMOGLOBIN 7.8 g/dL (13.5-17.5); LYMPHOCYTES # (AUTO) 0.8 K/uL (0.8-4.8); LYMPHOCYTES % (AUTO) 10.4 % (20.0-44.0); MEAN CORPUSCULAR HGB CONC 33 g/dl (31.0-36.0); MEAN CORPUSCULAR VOLUME 93 fL (80-96); MONOCYTES # (AUTO) 0.8 K/uL (0.1-1.30); MONOCYTES % (AUTO) 9.8 % (2.0-12.0); NEUTROPHILS # (AUTO) 6.1 K/uL (1.8-8.9); NEUTROPHILS % (AUTO) 75.3 % (43.0-81.0); PLATELET COUNT (AUTO) 324 K/uL (150-450); RED BLOOD CELL COUNT(AUTO) 2.61 MIL/uL (4.5-6.0)
[2021-04-06] MEDS: VANCOMYCIN 1 GM in IV D5W 250 ML IV SCH (20:00)
--- NOTE | 2021-04-06 20:15 | NUR ---
RN NOTES Noted pt with no SOB or respiratory distress. RR decreased to 16. O2 sat 99% on FiO2 of 40% with prescribed vent settings. B/P 96/57, HR 108. ABG done, WNL. CBC results relayed to Dr. Santlilan, NNO.
[2021-04-06 20:19] LABS: ABG BASE EXCESS 2.8 mmol/L; ABG OXYGEN SATURATION 93.4 % (92.0-98.5); ABG PCO2 43.8 mmHg (35.0-45.0); ABG PH 7.418 (7.350-7.450); ABG PO2 72.8 mmHg (75.0-100.0); COHb 0.4 % (0.5-1.5); MetHb 0.1 % (0.0-1.5); O2Hb 92.9 % (94.0-97.0); SITE, ABG Right Radial; VENT MODE, BG AC 14 450 40% +5
[2021-04-06] MEDS: ATORVASTATIN 40 MG TABLET GT SCH (21:11)
[2021-04-06] MEDS: LATANOPROST EYE DROP 0.005% 2.5 ML BOTTLE EACHEYE SCH (21:53)
--- NOTE | 2021-04-06 22:05 | NUR ---
RN NOTES Pt in stable condition. No respiratory distress, no SOB. Appears to be comfortable in bed. O2 sat 96%, HR 102. Will continue to monitor.
[2021-04-07] MEDS: POLYVINYL ALCOHOL 15 ML BOTTLE OP SCH ×5 (00:03→23:36)
[2021-04-07] MEDS: JEVITY 1.2 CAL 1,000 ML BOTTLE GT PRN (00:03)
[2021-04-07 01:32] VITALS: BP 93/50
[2021-04-07] MEDS: IPRATROPIUM HALF ST 0.25 MG/1.25 ML VIAL.NEB NEB SCH ×4 (01:43→19:51)
[2021-04-07] MEDS: ALBUTEROL FS 2.5 MG/0.5 ML VIAL.NEB NEB SCH ×4 (01:43→19:30)
[2021-04-07] MEDS: MEROPENEM 500 MG in IV NS 0.9% 50 ML IV SCH ×3 (05:49→20:29)
--- NOTE | 2021-04-07 06:42 | NUR ---
RN NOTES Pt in stable condition. No respiratory distress or SOB. Message left for CXR results to Dr. Santillan. O2 sat 98%, B/P 113/64, HR 103. Will continue to monitor.
[2021-04-07 07:02] LABS: CALCIUM, SERUM 8.6 mg/dL (8.5-10.1); CREATININE 0.7 mg/dL (0.6-1.3); POTASSIUM 4.6 mmol/L (3.5-5.1)
[2021-04-07 07:42] VITALS: BP 113/64
[2021-04-07] MEDS: HYDROGEN PEROXIDE 480 ML BOTTLE TP SCH ×2 (08:26→19:51)
[2021-04-07] MEDS: ARGININE/GLUTAMINE/CALCIUM BMB 1 EACH POWD.PACK GT SCH ×2 (09:00→16:52)
[2021-04-07] MEDS: PROSOURCE / PROSTAT (PYXIS) 30 ML UDC GT SCH ×4 (09:00→21:42)
[2021-04-07] MEDS: POVIDONE-IODINE OINT 28.4 GM TUBE TP SCH ×2 (09:00)
[2021-04-07] MEDS: MULTIVIT W/MINERALS 1 TAB TABLET GT SCH (09:00)
[2021-04-07] MEDS: BICALUTAMIDE 50 MG TABLET GT SCH (09:00)
[2021-04-07] MEDS: LISINOPRIL (5MG) 5 MG TABLET GT SCH (09:00)
[2021-04-07] MEDS: DAKINS QUARTER STRENGTH (0.125%) 480 ML BOTTLE TOP SCH (09:00)
[2021-04-07] MEDS: TIMOLOL 0.5% SOLN OPHTH 5 ML BOTTLE EACHEYE SCH ×2 (09:00→16:52)
[2021-04-07] MEDS: VITAMINS A AND D 56.7 GM TUBE TP SCH (09:00)
[2021-04-07] MEDS: Z GUARD REMEDY 4 OZ OINT TP SCH ×2 (09:00→21:42)
[2021-04-07] MEDS: DOCUSATE SODIUM LIQ 100 MG/10 ML UDC GT SCH ×2 (09:00→16:52)
[2021-04-07] MEDS: BACLOFEN (10 MG) 10 MG TABLET GT SCH (09:00)
[2021-04-07] MEDS: [UNRECOGNIZED DRUG - OTHER] GT SCH (09:00)
[2021-04-07] MEDS: PANTOPRAZOLE 40 MG/PACK PACK GT SCH (09:00)
[2021-04-07] MEDS: FOLIC ACID 1 MG TABLET GT SCH (09:00)
[2021-04-07] MEDS: FERROUS SULFATE - FOR SA ONLY 330 MG/7.5 ML UDC GT SCH ×2 (09:00→16:52)
[2021-04-07] MEDS: LORATADINE 10 MG TABLET GT SCH (09:00)
[2021-04-07] MEDS: HYDROCODONE/APAP 5/325MG TABLET GT SCH ×2 (09:00→21:42)
[2021-04-07] MEDS: PYRIDOXINE HCL 50 MG TABLET GT SCH (09:00)
--- NOTE | 2021-04-07 09:35 | NUR ---
RT NOTE: PATIENT RECEIVED WITH #8 SHILEY DCT CUFFED TRACH ON MECHANICAL VENT. MONTHLY TRACH CHANGE DONE. NO BLEEDING OR REDNESS NOTED AT THIS TIME. PATIENT IS TOLERATING WELL. CHARGE NURSE NOTIFIED. ALARMS VERIFIED AND AUDIBLE. SUCTIONED AND LAVAGED LARGE AMOUNT OF THICK COLES SECRETIONS. AMBU BAG AND NEW TRACH AT [facility].
--- NOTE | 2021-04-07 10:45 | NUR ---
Family Invite to IDT: SW spoke to the pt.'s Maciej CHARLTON [phone] inviting them to participate in 04/09 12:30 pm IDT meeting and they are agreeable. SW will follow up accordingly.
[2021-04-07 14:13] VITALS: BP 116/72
--- NOTE | 2021-04-07 16:45 | NUR ---
Left a message to Dr. Santillan that patient O2 saturation has been holding up above 97% at 40% Fi02. No episode of respiratory distress/discomfort. MD also made aware that patient still with hematuria, Aspirin ramain on hold, Hbg as of yesterday 7.8. Patient's sister, Shae updated of patient's condition including new and current wound with its measurements. Shae said that she talked to Dr. Santillan last night and aware of what happened yesterday. Endorsed to incoming shift.
[2021-04-07 19:49] VITALS: BP 121/73
[2021-04-07] MEDS: LATANOPROST EYE DROP 0.005% 2.5 ML BOTTLE EACHEYE SCH (21:42)
[2021-04-07] MEDS: ATORVASTATIN 40 MG TABLET GT SCH (21:42)
--- NOTE | 2021-04-08 00:27 | NUR ---
RT NOTE PT TRANSFERRED TO ER VIA LTV VENT. ALARMS ON AND AUDIBLE. NO RESPIRATORY DISTRESS NOTED. SPO2 100%, HR 107. TRACH SECURED AND PATENT. WILL CONTINUE TO MONITOR.
--- NOTE | 2021-04-08 00:50 | NUR ---
RN NOTES SEEN PATIENT BECOMING LESS ALERT AND HEMATURIA GETTING WORST NOW WITH BLOOD CLOTS. VITAL SIGNS TAKEN WITH BP 105/54 HR 106 RR 26 Temp 100.1 SPO2 100%. NOTIFIED , AWAITING RESPONSE. CALLED AND SPOKE TO ON-CALL MD WITH ORDERS TO TRANSFER PATIENT TO [facility] FOR FURTHER EVALUATION. TRANSFERRED TO ER BED 8, ENDORSED ACCORDINGLY TO ER NURSE. SISTER MYLES NEWBERRY MADE AWARE OF TRANSFER.
--- NOTE | 2021-04-08 06:10 | NUR ---
RN NOTES PATIENT CAME BACK FROM ER, LETHARGIC. AFEBRILE WITH NO S/S OF DISTRESS OBSERVED. GONCALVES CATH PATENT DRAINING PINK TINGED URINE. LATEST VITAL SIGNS BP 100/64 HR 114 RR 25 Temp 99.8 SPO2 99%. WILL CONTINUE TO MONITOR.
[2021-04-08 06:15] VITALS: BP 100/64
[2021-04-08 07:10] LABS: CALCIUM, SERUM 8.2 mg/dL (8.5-10.1); CREATININE 0.8 mg/dL (0.6-1.3); POTASSIUM 4.7 mmol/L (3.5-5.1)
[2021-04-08 07:26] VITALS: BP 100/58
[2021-04-08] MEDS: HYDROGEN PEROXIDE 480 ML BOTTLE TP SCH ×2 (09:00→19:43)
[2021-04-08] MEDS ORDERED: POVIDONE-IODINE OINT 28.4 GM TUBE TP SCH ×3 (09:00)
[2021-04-08] MEDS: LISINOPRIL (5MG) 5 MG TABLET GT SCH (09:00)
[2021-04-08] MEDS: DOCUSATE SODIUM LIQ 100 MG/10 ML UDC GT SCH ×2 (09:19→16:14)
[2021-04-08] MEDS: BICALUTAMIDE 50 MG TABLET GT SCH (09:19)
[2021-04-08] MEDS: FERROUS SULFATE - FOR SA ONLY 330 MG/7.5 ML UDC GT SCH ×2 (09:19→16:15)
[2021-04-08] MEDS: TIMOLOL 0.5% SOLN OPHTH 5 ML BOTTLE EACHEYE SCH ×2 (09:19→16:14)
[2021-04-08] MEDS: BACLOFEN (10 MG) 10 MG TABLET GT SCH (09:19)
[2021-04-08] MEDS: FOLIC ACID 1 MG TABLET GT SCH (09:19)
[2021-04-08] MEDS: LORATADINE 10 MG TABLET GT SCH (09:19)
[2021-04-08] MEDS: HYDROCODONE/APAP 5/325MG TABLET GT SCH ×2 (09:20→21:29)
[2021-04-08] MEDS: MULTIVIT W/MINERALS 1 TAB TABLET GT SCH (09:20)
[2021-04-08] MEDS: PROSOURCE / PROSTAT (PYXIS) 30 ML UDC GT SCH ×4 (09:20→21:29)
[2021-04-08] MEDS: PANTOPRAZOLE 40 MG/PACK PACK GT SCH (09:20)
[2021-04-08] MEDS: PYRIDOXINE HCL 50 MG TABLET GT SCH (09:20)
[2021-04-08] MEDS: ARGININE/GLUTAMINE/CALCIUM BMB 1 EACH POWD.PACK GT SCH ×2 (09:22→16:15)
[2021-04-08] MEDS: DAKINS QUARTER STRENGTH (0.125%) 480 ML BOTTLE TOP SCH (10:30)
[2021-04-08] MEDS: Z GUARD REMEDY 4 OZ OINT TP SCH ×2 (10:30→21:29)
[2021-04-08] MEDS: POVIDONE-IODINE OINT 28.4 GM TUBE TP SCH ×3 (10:30)
[2021-04-08] MEDS: VITAMINS A AND D 56.7 GM TUBE TP SCH ×2 (10:30→21:29)
--- NOTE | 2021-04-08 11:29 | NUR ---
Relayed recent CXR result to ROUTE RELIEF DRIVER Xenia Zazueta. Asked her to re-evaluate pt. She said pt is covered because he is still on Vancomycin and Merrem. T 97.7 F. WBC 8.0. Also informed Dr Santillan that pt was sent out to ER last night but was sent back to Subacute after 6 hours. According to night charge nurse, pt's bladder was irrigated in the ER and he was given Tylenol. Informed Dr Santillan of pt's BP readings and that pt has Prinivil 5 mg via GT daily. Prinivil has been held several times due to pt's SBP being less than 110.
[2021-04-08] MEDS: POLYVINYL ALCOHOL 15 ML BOTTLE OP SCH ×2 (12:30→18:05)
[2021-04-08] MEDS: MEROPENEM 500 MG in IV NS 0.9% 50 ML IV SCH ×2 (13:00→21:45)
--- NOTE | 2021-04-08 13:10 | NUR ---
Clarified left buttock wound to left hip wound. Pt was admitted with left hip redness and the left buttock wound is the same site as the left hip redness. Received order to apply Hydrogel and Mepilex.
[2021-04-08 13:12] VITALS: BP 118/42
[2021-04-08] MEDS: IPRATROPIUM HALF ST 0.25 MG/1.25 ML VIAL.NEB NEB SCH ×2 (13:31→19:43)
[2021-04-08] MEDS: ALBUTEROL FS 2.5 MG/0.5 ML VIAL.NEB NEB SCH ×2 (13:31→19:43)
--- NOTE | 2021-04-08 14:57 | NUR ---
Monthly progress notes. Resident is alert and responsive, unable to verbalized his needs. He smile during communication . He received daily visits for sensory stimulation music , TV,hand massage and reality orientation. These activities will be provided as needed.
[2021-04-08] MEDS: HYDROGEL DRESSING 90 GM TUBE TP SCH (16:09)
--- NOTE | 2021-04-08 16:52 | NUR ---
Seen by BRITTNI Clark. She said she will do serial debridement on right hip wound next week. Informed pt's sister Shae. Also informed her regarding left hip wound. Addendum: 04/08/21 at 1708 by NEW OSBORNE RN BRITTNI Clark also saw left hip.
--- NOTE | 2021-04-08 17:53 | NUR ---
Seen by ANGELLA Porras. Relayed CXR result to her. She said she will have Dr Sullivan look at the CXR image.
[2021-04-08 19:26] VITALS: BP 115/66
[2021-04-08] MEDS: VANCOMYCIN 1 GM in IV D5W 250 ML IV SCH (20:12)
[2021-04-08] MEDS: LATANOPROST EYE DROP 0.005% 2.5 ML BOTTLE EACHEYE SCH (21:29)
[2021-04-08] MEDS: ATORVASTATIN 40 MG TABLET GT SCH (21:29)
[2021-04-09 00:11] VITALS: BP 109/62
[2021-04-09] MEDS: POLYVINYL ALCOHOL 15 ML BOTTLE OP SCH ×4 (00:12→17:43)
[2021-04-09] MEDS: IPRATROPIUM HALF ST 0.25 MG/1.25 ML VIAL.NEB NEB SCH ×4 (02:00→19:48)
[2021-04-09] MEDS: ALBUTEROL FS 2.5 MG/0.5 ML VIAL.NEB NEB SCH ×4 (02:01→19:48)
[2021-04-09] MEDS: MEROPENEM 500 MG in IV NS 0.9% 50 ML IV SCH ×3 (05:02→20:56)
[2021-04-09] MEDS: JEVITY 1.2 CAL 1,000 ML BOTTLE GT PRN (05:55)
--- NOTE | 2021-04-09 06:15 | NUR ---
LICENSED PHARMACIST NOTE: Active hematuria still noted with bright red color noted on andres catheter output. 800 cc obtained. Will No signs of distress and discomfort noted. Saturation of 98%. Will continue to monitor.
[2021-04-09 07:48] LABS: BASOPHILS # (AUTO) 0.1 K/uL (0.0-0.2); BASOPHILS % (AUTO) 0.8 % (0.0-2.0); HEMATOCRIT 24 % (39-51); HEMOGLOBIN 7.9 g/dL (13.5-17.5); LYMPHOCYTES # (AUTO) 1.3 K/uL (0.8-4.8); LYMPHOCYTES % (AUTO) 18.7 % (20.0-44.0); MEAN CORPUSCULAR HGB CONC 33 g/dl (31.0-36.0); MEAN CORPUSCULAR VOLUME 92 fL (80-96); MONOCYTES % (AUTO) 15.5 % (2.0-12.0); NEUTROPHILS # (AUTO) 4.1 K/uL (1.8-8.9); PLATELET COUNT (AUTO) 353 K/uL (150-450); RED BLOOD CELL COUNT(AUTO) 2.61 MIL/uL (4.5-6.0); WHITE BLOOD COUNT (AUTO) 6.8 K/uL (4.3-11.0)
[2021-04-09 08:04] VITALS: BP 116/74
[2021-04-09] MEDS: LISINOPRIL (5MG) 5 MG TABLET GT SCH (09:00)
[2021-04-09] MEDS: HYDROGEN PEROXIDE 480 ML BOTTLE TP SCH ×2 (09:46→21:11)
[2021-04-09] MEDS: TIMOLOL 0.5% SOLN OPHTH 5 ML BOTTLE EACHEYE SCH ×2 (09:55→17:43)
[2021-04-09] MEDS: [UNRECOGNIZED DRUG - OTHER] GT SCH (09:56)
[2021-04-09] MEDS: DOCUSATE SODIUM LIQ 100 MG/10 ML UDC GT SCH ×2 (09:56→17:43)
[2021-04-09] MEDS: FERROUS SULFATE - FOR SA ONLY 330 MG/7.5 ML UDC GT SCH ×2 (09:56→17:43)
[2021-04-09] MEDS: ARGININE/GLUTAMINE/CALCIUM BMB 1 EACH POWD.PACK GT SCH ×2 (09:56→17:43)
[2021-04-09] MEDS: PROSOURCE / PROSTAT (PYXIS) 30 ML UDC GT SCH ×4 (09:57→21:00)
[2021-04-09] MEDS: MULTIVIT W/MINERALS 1 TAB TABLET GT SCH (09:57)
[2021-04-09] MEDS: PYRIDOXINE HCL 50 MG TABLET GT SCH (09:59)
[2021-04-09] MEDS: PANTOPRAZOLE 40 MG/PACK PACK GT SCH (09:59)
[2021-04-09] MEDS: BACLOFEN (10 MG) 10 MG TABLET GT SCH (10:00)
[2021-04-09] MEDS: FOLIC ACID 1 MG TABLET GT SCH (10:00)
[2021-04-09] MEDS: LORATADINE 10 MG TABLET GT SCH (10:00)
[2021-04-09] MEDS: HYDROCODONE/APAP 5/325MG TABLET GT SCH ×2 (10:00→22:00)
[2021-04-09] MEDS: BICALUTAMIDE 50 MG TABLET GT SCH (10:00)
[2021-04-09] MEDS: DAKINS QUARTER STRENGTH (0.125%) 480 ML BOTTLE TOP SCH (10:30)
[2021-04-09] MEDS: HYDROGEL DRESSING 90 GM TUBE TP SCH (10:30)
[2021-04-09] MEDS: VITAMINS A AND D 56.7 GM TUBE TP SCH ×3 (10:30→21:00)
[2021-04-09] MEDS: Z GUARD REMEDY 4 OZ OINT TP SCH ×2 (10:30→21:00)
[2021-04-09] MEDS: POVIDONE-IODINE OINT 28.4 GM TUBE TP SCH ×3 (10:30)
[2021-04-09 12:07] LABS: EOSINOPHILS % (MANUAL) 5 % (0-4); LYMPHOCYTES % (MANUAL) 18 % (16-48); MONOCYTES % (MANUAL) 15 % (0-11.0); NEUTROPHILS % (MANUAL) 62 (42-76)
--- NOTE | 2021-04-09 14:30 | NUR ---
INTERDISCIPLINARY PLAN OF CARE CONFERENCE took place today. The patients ZOLTAN, Maciej participated in IDT via phone conference. Dr. Sullivan and Interdisciplinary team discussed the plan of care in detail. Current orders as well as treatments and medications were reviewed. IDT addressed the CM questions such as getting him up in anna chair. Maciej claims that patient developed pressure ulcer because he is not getting up in the chair. Explained that patient's ulcer is caused by poor circulation which is the reason why wounds are not improving and new sites are developing. Further explained that patient is unable to tolerate certain position change for a long time as evidenced by episode of desaturation during turning and repositioning especially when doing wound treatment. She also mentioned that Dr. Santillan spoke with resident's sister Shae regarding his hematuria. Dr. Sullivan reviewed most recent CBC, BMP and chest x-ray result, with new order to repeat chest Xray in AM. PT together with staff will try to put patient in anna-chair on Monday. Endorsed.
[2021-04-09 16:13] VITALS: BP 118/69
--- NOTE | 2021-04-09 18:00 | NUR ---
Still noted with hematuria, flushed f/c and noted blood clots. Charged nurse and MD aware. No fever noted. Resident asleep most of the time but wakes up when name is called or when touched. No hypotension noted, no desaturation noted. Medicated for pain before wound treatment. Will continue to monitor.
[2021-04-09 19:17] VITALS: BP 96/64
[2021-04-09] MEDS: ATORVASTATIN 40 MG TABLET GT SCH (22:23)
[2021-04-09] MEDS: LATANOPROST EYE DROP 0.005% 2.5 ML BOTTLE EACHEYE SCH (22:23)
--- NOTE | 2021-04-10 | NUR ---
CHANGED PATIENTS MIDLINE DRESSING. NO S/S INFECTION. USED STERILE TECHNIQUE. IV ACCESS IS REMAINS PATENT AND SALINE LOCKED.
[2021-04-10 00:05] VITALS: BP 91/48
[2021-04-10 00:13] VITALS: BP 116/62
[2021-04-10] MEDS: JEVITY 1.2 CAL 1,000 ML BOTTLE GT PRN (00:30)
[2021-04-10] MEDS: IPRATROPIUM HALF ST 0.25 MG/1.25 ML VIAL.NEB NEB SCH ×4 (01:35→19:51)
[2021-04-10] MEDS: ALBUTEROL FS 2.5 MG/0.5 ML VIAL.NEB NEB SCH ×4 (01:35→19:51)
[2021-04-10] MEDS: MEROPENEM 500 MG in IV NS 0.9% 50 ML IV SCH ×3 (05:09→21:17)
[2021-04-10] MEDS: POLYVINYL ALCOHOL 15 ML BOTTLE OP SCH ×4 (05:38→17:55)
--- NOTE | 2021-04-10 06:50 | NUR ---
Active Hematuria still present in the f/c, with blood clots upon irrigation. No respiratory distress. bp 99/54, hr 100. Will closely monitor. Good perineal care provided.
[2021-04-10 07:18] VITALS: BP 99/54
[2021-04-10] MEDS: LORATADINE 10 MG TABLET GT SCH (08:47)
[2021-04-10] MEDS: BICALUTAMIDE 50 MG TABLET GT SCH (08:47)
[2021-04-10] MEDS: FERROUS SULFATE - FOR SA ONLY 330 MG/7.5 ML UDC GT SCH ×2 (08:47→17:55)
[2021-04-10] MEDS: DOCUSATE SODIUM LIQ 100 MG/10 ML UDC GT SCH ×2 (08:47→17:55)
[2021-04-10] MEDS: FOLIC ACID 1 MG TABLET GT SCH (08:47)
[2021-04-10] MEDS: ARGININE/GLUTAMINE/CALCIUM BMB 1 EACH POWD.PACK GT SCH ×2 (08:47→17:55)
[2021-04-10] MEDS: TIMOLOL 0.5% SOLN OPHTH 5 ML BOTTLE EACHEYE SCH ×2 (08:47→17:55)
[2021-04-10] MEDS: BACLOFEN (10 MG) 10 MG TABLET GT SCH (08:47)
[2021-04-10] MEDS: HYDROCODONE/APAP 5/325MG TABLET GT SCH ×2 (08:48→21:00)
[2021-04-10] MEDS: LISINOPRIL (5MG) 5 MG TABLET GT SCH (08:48)
[2021-04-10] MEDS: PROSOURCE / PROSTAT (PYXIS) 30 ML UDC GT SCH ×4 (08:48→21:00)
[2021-04-10] MEDS: MULTIVIT W/MINERALS 1 TAB TABLET GT SCH (08:49)
[2021-04-10] MEDS: PANTOPRAZOLE 40 MG/PACK PACK GT SCH (08:49)
[2021-04-10] MEDS: POVIDONE-IODINE OINT 28.4 GM TUBE TP SCH ×3 (08:49→08:50)
[2021-04-10] MEDS: DAKINS QUARTER STRENGTH (0.125%) 480 ML BOTTLE TOP SCH (08:49)
[2021-04-10] MEDS: PYRIDOXINE HCL 50 MG TABLET GT SCH (08:49)
[2021-04-10] MEDS: HYDROGEL DRESSING 90 GM TUBE TP SCH (08:50)
[2021-04-10] MEDS: Z GUARD REMEDY 4 OZ OINT TP SCH ×2 (08:50→21:00)
[2021-04-10] MEDS: VITAMINS A AND D 56.7 GM TUBE TP SCH ×3 (08:51→21:00)
[2021-04-10] MEDS: HYDROGEN PEROXIDE 480 ML BOTTLE TP SCH ×2 (09:04→19:51)
--- NOTE | 2021-04-10 10:05 | NUR ---
Reported chest Xray result to Dr. Sullivan. said he reviewed result and film, no new order given at this time.
[2021-04-10 12:02] VITALS: BP 121/70
[2021-04-10] MEDS ORDERED: VANCOMYCIN 1 GM in IV D5W 250 ML IV SCH (13:00)
[2021-04-10] MEDS: VANCOMYCIN 1.25 GM in IV D5W 250 ML IV SCH (14:00)
[2021-04-10] MEDS: ACETAMINOPHEN SUP SA PATIENTS 650 MG SUPP RC PRN (15:25)
--- NOTE | 2021-04-10 18:30 | NUR ---
Left a message to Dr. Santillan that patient still having hematuria, no return call. Obtained order from Dr. Sullivan to repeat CBC on Monday due to hematuria. Hbg level yesterday 7.9. Orders carried out. Left a message to patient's sister Shae to call back for update regarding patient's condition and new orders.
[2021-04-10] MEDS: LATANOPROST EYE DROP 0.005% 2.5 ML BOTTLE EACHEYE SCH (21:00)
[2021-04-10 21:02] VITALS: BP 115/62
[2021-04-10 22:00] VITALS: BP 115/62
[2021-04-10] MEDS: ATORVASTATIN 40 MG TABLET GT SCH (22:00)
[2021-04-11 00:08] VITALS: BP 121/70
[2021-04-11] MEDS: POLYVINYL ALCOHOL 15 ML BOTTLE OP SCH ×4 (00:38→17:15)
[2021-04-11] MEDS: IPRATROPIUM HALF ST 0.25 MG/1.25 ML VIAL.NEB NEB SCH ×4 (01:35→19:58)
[2021-04-11] MEDS: ALBUTEROL FS 2.5 MG/0.5 ML VIAL.NEB NEB SCH ×4 (01:35→19:58)
[2021-04-11] MEDS: MEROPENEM 500 MG in IV NS 0.9% 50 ML IV SCH ×3 (05:11→21:00)
[2021-04-11 07:12] VITALS: BP 116/67
[2021-04-11] MEDS: POVIDONE-IODINE OINT 28.4 GM TUBE TP SCH ×3 (09:00)
[2021-04-11] MEDS: FOLIC ACID 1 MG TABLET GT SCH (09:00)
[2021-04-11] MEDS: VITAMINS A AND D 56.7 GM TUBE TP SCH ×3 (09:00→20:31)
[2021-04-11] MEDS: ARGININE/GLUTAMINE/CALCIUM BMB 1 EACH POWD.PACK GT SCH ×2 (09:00→17:15)
[2021-04-11] MEDS: HYDROCODONE/APAP 5/325MG TABLET GT SCH ×2 (09:00→20:30)
[2021-04-11] MEDS: Z GUARD REMEDY 4 OZ OINT TP SCH ×2 (09:00→20:31)
[2021-04-11] MEDS: TIMOLOL 0.5% SOLN OPHTH 5 ML BOTTLE EACHEYE SCH ×2 (09:00→17:15)
[2021-04-11] MEDS: [UNRECOGNIZED DRUG - OTHER] GT SCH (09:00)
[2021-04-11] MEDS: BICALUTAMIDE 50 MG TABLET GT SCH (09:00)
[2021-04-11] MEDS: HYDROGEL DRESSING 90 GM TUBE TP SCH (09:00)
[2021-04-11] MEDS: DAKINS QUARTER STRENGTH (0.125%) 480 ML BOTTLE TOP SCH (09:00)
[2021-04-11] MEDS: LORATADINE 10 MG TABLET GT SCH (09:00)
[2021-04-11] MEDS: FERROUS SULFATE - FOR SA ONLY 330 MG/7.5 ML UDC GT SCH ×2 (09:00→17:15)
[2021-04-11] MEDS: LISINOPRIL (5MG) 5 MG TABLET GT SCH (09:00)
[2021-04-11] MEDS: MULTIVIT W/MINERALS 1 TAB TABLET GT SCH (09:00)
[2021-04-11] MEDS: BACLOFEN (10 MG) 10 MG TABLET GT SCH (09:00)
[2021-04-11] MEDS: PANTOPRAZOLE 40 MG/PACK PACK GT SCH (09:00)
[2021-04-11] MEDS: PYRIDOXINE HCL 50 MG TABLET GT SCH (09:00)
[2021-04-11] MEDS: PROSOURCE / PROSTAT (PYXIS) 30 ML UDC GT SCH ×4 (09:00→20:31)
[2021-04-11] MEDS: DOCUSATE SODIUM LIQ 100 MG/10 ML UDC GT SCH ×2 (09:00→17:15)
[2021-04-11] MEDS: HYDROGEN PEROXIDE 480 ML BOTTLE TP SCH ×2 (09:14→19:58)
[2021-04-11 09:21] LABS: CALCIUM, SERUM 8.8 mg/dL (8.5-10.1); CREATININE 0.6 mg/dL (0.6-1.3); POTASSIUM 5.1 mmol/L (3.5-5.1)
[2021-04-11 13:45] VITALS: BP 113/74
[2021-04-11 21:07] VITALS: BP 122/74
[2021-04-11] MEDS: ATORVASTATIN 40 MG TABLET GT SCH (21:31)
[2021-04-11] MEDS: LATANOPROST EYE DROP 0.005% 2.5 ML BOTTLE EACHEYE SCH (21:31)
[2021-04-12] MEDS: POLYVINYL ALCOHOL 15 ML BOTTLE OP SCH ×5 (00:14→23:38)
[2021-04-12 01:03] VITALS: BP 119/69
[2021-04-12] MEDS: ALBUTEROL FS 2.5 MG/0.5 ML VIAL.NEB NEB SCH ×4 (01:51→20:14)
[2021-04-12] MEDS: IPRATROPIUM HALF ST 0.25 MG/1.25 ML VIAL.NEB NEB SCH ×4 (01:51→20:14)
[2021-04-12] MEDS: JEVITY 1.2 CAL 1,000 ML BOTTLE GT PRN (03:40)
[2021-04-12] MEDS: MEROPENEM 500 MG in IV NS 0.9% 50 ML IV SCH ×3 (05:19→21:16)
[2021-04-12 07:33] LABS: BASOPHILS % (AUTO) 0.5 % (0.0-2.0); EOSINOPHILS % (AUTO) 4.5 % (0.0-6.0); HEMATOCRIT 25 % (39-51); HEMOGLOBIN 7.9 g/dL (13.5-17.5); LYMPHOCYTES # (AUTO) 1.4 K/uL (0.8-4.8); LYMPHOCYTES % (AUTO) 18.2 % (20.0-44.0); MEAN CORPUSCULAR HGB CONC 32 g/dl (31.0-36.0); MEAN CORPUSCULAR VOLUME 94 fL (80-96); MONOCYTES % (AUTO) 12.2 % (2.0-12.0); NEUTROPHILS # (AUTO) 5.1 K/uL (1.8-8.9); NEUTROPHILS % (AUTO) 64.6 % (43.0-81.0); PLATELET COUNT (AUTO) 368 K/uL (150-450); RED BLOOD CELL COUNT(AUTO) 2.67 MIL/uL (4.5-6.0); WHITE BLOOD COUNT (AUTO) 7.9 K/uL (4.3-11.0)
[2021-04-12 07:38] VITALS: BP 103/62
[2021-04-12] MEDS: HYDROGEN PEROXIDE 480 ML BOTTLE TP SCH ×2 (08:03→20:14)
[2021-04-12] MEDS: LISINOPRIL (5MG) 5 MG TABLET GT SCH (09:00)
[2021-04-12] MEDS: TIMOLOL 0.5% SOLN OPHTH 5 ML BOTTLE EACHEYE SCH ×2 (09:06→16:27)
[2021-04-12] MEDS: FOLIC ACID 1 MG TABLET GT SCH (09:06)
[2021-04-12] MEDS: DOCUSATE SODIUM LIQ 100 MG/10 ML UDC GT SCH ×2 (09:06→16:28)
[2021-04-12] MEDS: ARGININE/GLUTAMINE/CALCIUM BMB 1 EACH POWD.PACK GT SCH ×2 (09:06→16:28)
[2021-04-12] MEDS: LORATADINE 10 MG TABLET GT SCH (09:06)
[2021-04-12] MEDS: BACLOFEN (10 MG) 10 MG TABLET GT SCH (09:06)
[2021-04-12] MEDS: BICALUTAMIDE 50 MG TABLET GT SCH (09:06)
[2021-04-12] MEDS: FERROUS SULFATE - FOR SA ONLY 330 MG/7.5 ML UDC GT SCH ×2 (09:06→16:28)
[2021-04-12] MEDS: HYDROCODONE/APAP 5/325MG TABLET GT SCH ×2 (09:07→21:01)
[2021-04-12] MEDS: MULTIVIT W/MINERALS 1 TAB TABLET GT SCH (09:08)
[2021-04-12] MEDS: PANTOPRAZOLE 40 MG/PACK PACK GT SCH (09:08)
[2021-04-12] MEDS: DAKINS QUARTER STRENGTH (0.125%) 480 ML BOTTLE TOP SCH (09:08)
[2021-04-12] MEDS: PROSOURCE / PROSTAT (PYXIS) 30 ML UDC GT SCH ×4 (09:08→21:01)
[2021-04-12] MEDS: PYRIDOXINE HCL 50 MG TABLET GT SCH (09:08)
[2021-04-12] MEDS: HYDROGEL DRESSING 90 GM TUBE TP SCH (09:09)
[2021-04-12] MEDS: Z GUARD REMEDY 4 OZ OINT TP SCH ×2 (09:09→21:01)
[2021-04-12] MEDS: POVIDONE-IODINE OINT 28.4 GM TUBE TP SCH ×3 (09:09)
[2021-04-12] MEDS: VITAMINS A AND D 56.7 GM TUBE TP SCH ×3 (09:10→21:01)
--- NOTE | 2021-04-12 12:40 | NUR ---
Seen by Dr Santillan. Pt still has hematuria. Dr Santillan said it is probably from the kidney stones. He ordered to give 1/2 NS at 100 mL/hr IV. He said no stop date for now. Notified pt's sister Shae.
[2021-04-12] MEDS: IV 1/2NS 1000 ML 1,000 ML IV PRN (13:00)
[2021-04-12] MEDS: VANCOMYCIN 1.25 GM in IV D5W 250 ML IV SCH (13:00)
[2021-04-12 13:46] VITALS: BP 124/76
--- NOTE | 2021-04-12 17:10 | NUR ---
Called Maciej Mathew to inform her that pt was not sat up in a gerichair today since he was tachypneic and tachycardic (HR 116-120). No desaturation noted, but pt did not appear comfortable. Pt was given pain medicine. Pt has multiple wounds and contractions. Maciej is already off the clock and charge nurse was told to call tomorrow. Called her cellular phone number but no answer.
[2021-04-12 19:58] VITALS: BP 122/65
[2021-04-12] MEDS: ATORVASTATIN 40 MG TABLET GT SCH (21:01)
[2021-04-12] MEDS: LATANOPROST EYE DROP 0.005% 2.5 ML BOTTLE EACHEYE SCH (21:01)
[2021-04-13 00:47] VITALS: BP 117/62
[2021-04-13] MEDS: IPRATROPIUM HALF ST 0.25 MG/1.25 ML VIAL.NEB NEB SCH ×4 (02:20→19:51)
[2021-04-13] MEDS: ALBUTEROL FS 2.5 MG/0.5 ML VIAL.NEB NEB SCH ×4 (02:20→19:51)
[2021-04-13] MEDS: MEROPENEM 500 MG in IV NS 0.9% 50 ML IV SCH ×3 (05:00→21:21)
[2021-04-13] MEDS: POLYVINYL ALCOHOL 15 ML BOTTLE OP SCH ×4 (05:36→23:33)
[2021-04-13 07:43] VITALS: BP 137/65
[2021-04-13] MEDS: HYDROGEN PEROXIDE 480 ML BOTTLE TP SCH ×2 (08:06→23:25)
[2021-04-13] MEDS: LISINOPRIL (5MG) 5 MG TABLET GT SCH (09:00)
[2021-04-13] MEDS: FOLIC ACID 1 MG TABLET GT SCH (09:56)
[2021-04-13] MEDS: BACLOFEN (10 MG) 10 MG TABLET GT SCH (09:56)
[2021-04-13] MEDS: LORATADINE 10 MG TABLET GT SCH (09:56)
[2021-04-13] MEDS: [UNRECOGNIZED DRUG - OTHER] GT SCH (09:56)
[2021-04-13] MEDS: FERROUS SULFATE - FOR SA ONLY 330 MG/7.5 ML UDC GT SCH ×2 (09:56→16:42)
[2021-04-13] MEDS: ARGININE/GLUTAMINE/CALCIUM BMB 1 EACH POWD.PACK GT SCH ×2 (09:56→16:42)
[2021-04-13] MEDS: BICALUTAMIDE 50 MG TABLET GT SCH (09:56)
[2021-04-13] MEDS: TIMOLOL 0.5% SOLN OPHTH 5 ML BOTTLE EACHEYE SCH ×2 (09:56→16:42)
[2021-04-13] MEDS: DOCUSATE SODIUM LIQ 100 MG/10 ML UDC GT SCH ×2 (09:56→16:42)
[2021-04-13] MEDS: HYDROGEL DRESSING 90 GM TUBE TP SCH (09:57)
[2021-04-13] MEDS: PYRIDOXINE HCL 50 MG TABLET GT SCH (09:57)
[2021-04-13] MEDS: Z GUARD REMEDY 4 OZ OINT TP SCH ×2 (09:57→21:12)
[2021-04-13] MEDS: PROSOURCE / PROSTAT (PYXIS) 30 ML UDC GT SCH ×4 (09:57→21:12)
[2021-04-13] MEDS: PANTOPRAZOLE 40 MG/PACK PACK GT SCH (09:57)
[2021-04-13] MEDS: POVIDONE-IODINE OINT 28.4 GM TUBE TP SCH ×3 (09:57)
[2021-04-13] MEDS: DAKINS QUARTER STRENGTH (0.125%) 480 ML BOTTLE TOP SCH (09:57)
[2021-04-13] MEDS: MULTIVIT W/MINERALS 1 TAB TABLET GT SCH (09:57)
[2021-04-13] MEDS: HYDROCODONE/APAP 5/325MG TABLET GT SCH ×2 (09:57→21:12)
[2021-04-13] MEDS: VITAMINS A AND D 56.7 GM TUBE TP SCH ×3 (09:58→21:12)
--- NOTE | 2021-04-13 11:51 | NUR ---
Pt appears to have some increased work of breathing, but saturation is 99-100% on FiO2 40%. Seen by Dr Sullivan and he is aware. Did not get pt up in hospital [facility]. Notified Maciej. Addendum: 04/13/21 at 1157 by NEW OSBORNE RN RR 25
--- NOTE | 2021-04-13 11:57 | NUR ---
Pt being suctioned and given breathing treatments routinely.
[2021-04-13 13:04] VITALS: BP 145/96
[2021-04-13] MEDS: IV 1/2NS 1000 ML 1,000 ML IV PRN (17:00)
[2021-04-13] MEDS: BISACODYL SUPP (10 MG) 10 MG/SUPP.RECT SUPP.RECT RC PRN (18:32)
--- NOTE | 2021-04-13 18:34 | NUR ---
Dulcolax suppository 10 mg. per rectum not administered due to patient presented a formed large bowel .
[2021-04-13 19:52] VITALS: BP 104/56
[2021-04-13] MEDS: LATANOPROST EYE DROP 0.005% 2.5 ML BOTTLE EACHEYE SCH (21:12)
[2021-04-13] MEDS: ATORVASTATIN 40 MG TABLET GT SCH (21:12)
[2021-04-14] MEDS: IPRATROPIUM HALF ST 0.25 MG/1.25 ML VIAL.NEB NEB SCH ×4 (02:14→19:33)
[2021-04-14] MEDS: ALBUTEROL FS 2.5 MG/0.5 ML VIAL.NEB NEB SCH ×4 (02:14→19:33)
[2021-04-14 02:33] VITALS: BP 119/73
[2021-04-14] MEDS: MEROPENEM 500 MG in IV NS 0.9% 50 ML IV SCH ×3 (05:00→21:41)
[2021-04-14] MEDS: POLYVINYL ALCOHOL 15 ML BOTTLE OP SCH ×4 (06:10→23:48)
[2021-04-14 07:23] VITALS: BP 110/58
[2021-04-14 08:09] LABS: CALCIUM, SERUM 8.7 mg/dL (8.5-10.1); CREATININE 0.7 mg/dL (0.6-1.3)
[2021-04-14] MEDS: FOLIC ACID 1 MG TABLET GT SCH (09:12)
[2021-04-14] MEDS: BICALUTAMIDE 50 MG TABLET GT SCH (09:12)
[2021-04-14] MEDS: FERROUS SULFATE - FOR SA ONLY 330 MG/7.5 ML UDC GT SCH ×2 (09:12→16:35)
[2021-04-14] MEDS: DOCUSATE SODIUM LIQ 100 MG/10 ML UDC GT SCH ×2 (09:12→16:35)
[2021-04-14] MEDS: ARGININE/GLUTAMINE/CALCIUM BMB 1 EACH POWD.PACK GT SCH ×2 (09:12→16:35)
[2021-04-14] MEDS: HYDROCODONE/APAP 5/325MG TABLET GT SCH ×2 (09:12→22:00)
[2021-04-14] MEDS: TIMOLOL 0.5% SOLN OPHTH 5 ML BOTTLE EACHEYE SCH ×2 (09:12→16:35)
[2021-04-14] MEDS: BACLOFEN (10 MG) 10 MG TABLET GT SCH (09:12)
[2021-04-14] MEDS: LORATADINE 10 MG TABLET GT SCH (09:12)
[2021-04-14] MEDS: MULTIVIT W/MINERALS 1 TAB TABLET GT SCH (09:16)
[2021-04-14] MEDS: LISINOPRIL (5MG) 5 MG TABLET GT SCH (09:16)
[2021-04-14] MEDS: POVIDONE-IODINE OINT 28.4 GM TUBE TP SCH ×3 (09:16)
[2021-04-14] MEDS: DAKINS QUARTER STRENGTH (0.125%) 480 ML BOTTLE TOP SCH (09:16)
[2021-04-14] MEDS: PANTOPRAZOLE 40 MG/PACK PACK GT SCH (09:16)
[2021-04-14] MEDS: Z GUARD REMEDY 4 OZ OINT TP SCH ×2 (09:16→21:47)
[2021-04-14] MEDS: HYDROGEL DRESSING 90 GM TUBE TP SCH (09:16)
[2021-04-14] MEDS: PROSOURCE / PROSTAT (PYXIS) 30 ML UDC GT SCH ×4 (09:16→21:47)
[2021-04-14] MEDS: VITAMINS A AND D 56.7 GM TUBE TP SCH ×3 (09:16→21:47)
[2021-04-14] MEDS: PYRIDOXINE HCL 50 MG TABLET GT SCH (09:16)
[2021-04-14] MEDS: JEVITY 1.2 CAL 1,000 ML BOTTLE GT PRN (10:00)
[2021-04-14] MEDS: HYDROGEN PEROXIDE 480 ML BOTTLE TP SCH ×2 (10:52→21:00)
[2021-04-14] MEDS: VANCOMYCIN 1.25 GM in IV D5W 250 ML IV SCH (13:19)
[2021-04-14 13:36] VITALS: BP 121/75
[2021-04-14] MEDS: ACETAMINOPHEN 650 MG/20 ML UDC- SA PATIENTS-PAIN ONLY GT PRN (17:54)
[2021-04-14 19:56] VITALS: BP 133/92
[2021-04-14] MEDS: LATANOPROST EYE DROP 0.005% 2.5 ML BOTTLE EACHEYE SCH (21:47)
[2021-04-14] MEDS: ATORVASTATIN 40 MG TABLET GT SCH (21:47)
[2021-04-15] MEDS: ALBUTEROL FS 2.5 MG/0.5 ML VIAL.NEB NEB SCH ×4 (01:34→20:05)
[2021-04-15] MEDS: IPRATROPIUM HALF ST 0.25 MG/1.25 ML VIAL.NEB NEB SCH ×4 (01:34→20:05)
[2021-04-15] MEDS: IV 1/2NS 1000 ML 1,000 ML IV PRN ×2 (05:28→19:01)
[2021-04-15] MEDS: MEROPENEM 500 MG in IV NS 0.9% 50 ML IV SCH ×3 (05:28→21:09)
[2021-04-15] MEDS: POLYVINYL ALCOHOL 15 ML BOTTLE OP SCH ×3 (05:40→17:09)
[2021-04-15] MEDS: JEVITY 1.2 CAL 1,000 ML BOTTLE GT PRN (05:41)
--- NOTE | 2021-04-15 06:11 | NUR ---
Patient still with hematuria noted. Afebrlie. On continuous hydration of 1/2 NS 100 ml/hr.Kept clean and comfortable. Needs attended.
[2021-04-15] MEDS: HYDROGEN PEROXIDE 480 ML BOTTLE TP SCH ×2 (08:23→20:32)
[2021-04-15] MEDS: TIMOLOL 0.5% SOLN OPHTH 5 ML BOTTLE EACHEYE SCH ×2 (08:24→17:09)
[2021-04-15] MEDS: FOLIC ACID 1 MG TABLET GT SCH (08:28)
[2021-04-15] MEDS: ARGININE/GLUTAMINE/CALCIUM BMB 1 EACH POWD.PACK GT SCH ×2 (08:28→17:09)
[2021-04-15] MEDS: DOCUSATE SODIUM LIQ 100 MG/10 ML UDC GT SCH ×2 (08:28→17:09)
[2021-04-15] MEDS: LORATADINE 10 MG TABLET GT SCH (08:28)
[2021-04-15] MEDS: FERROUS SULFATE - FOR SA ONLY 330 MG/7.5 ML UDC GT SCH ×2 (08:28→17:09)
[2021-04-15] MEDS: [UNRECOGNIZED DRUG - OTHER] GT SCH (08:28)
[2021-04-15] MEDS: BICALUTAMIDE 50 MG TABLET GT SCH (08:28)
[2021-04-15] MEDS: BACLOFEN (10 MG) 10 MG TABLET GT SCH (08:28)
[2021-04-15] MEDS: POVIDONE-IODINE OINT 28.4 GM TUBE TP SCH ×3 (08:29)
[2021-04-15] MEDS: PANTOPRAZOLE 40 MG/PACK PACK GT SCH (08:29)
[2021-04-15] MEDS: HYDROCODONE/APAP 5/325MG TABLET GT SCH (08:29)
[2021-04-15] MEDS: MULTIVIT W/MINERALS 1 TAB TABLET GT SCH (08:29)
[2021-04-15] MEDS: DAKINS QUARTER STRENGTH (0.125%) 480 ML BOTTLE TOP SCH (08:29)
[2021-04-15] MEDS: PYRIDOXINE HCL 50 MG TABLET GT SCH (08:29)
[2021-04-15] MEDS: LISINOPRIL (5MG) 5 MG TABLET GT SCH (08:29)
[2021-04-15] MEDS: PROSOURCE / PROSTAT (PYXIS) 30 ML UDC GT SCH ×4 (08:29→21:20)
[2021-04-15] MEDS: Z GUARD REMEDY 4 OZ OINT TP SCH ×2 (08:31→21:20)
[2021-04-15] MEDS: VITAMINS A AND D 56.7 GM TUBE TP SCH ×3 (08:31→21:21)
[2021-04-15] MEDS: HYDROGEL DRESSING 90 GM TUBE TP SCH (08:31)
[2021-04-15 10:18] VITALS: BP 129/70
[2021-04-15] MEDS ORDERED: LIDOCAINE 1%-EPI 1:100,000 50 ML VIAL IJ ONE ×2 (12:30→15:00)
--- NOTE | 2021-04-15 14:00 | NUR ---
Received a call from BRITTNI Higgins that she will do debridement today. Obtained consent from patient's sister Shae for serial debridement of the R hip witnessed by two licensed nurses. Informed Shae that Maciej visited earlier today explained to her the reason why [facility] Patient experiences desaturation when HOB is lowered during positioning. Informed Shae and Maciej that patient's wounds are not getting better, but increasing in size and new sites are developing, overall his condition is declining. During a conversation with Maciej this morning, she mentioned that if patient passes away, they already made an arrangement in [place] where patient expressed he wanted to be with his parent. Maciej and Shae are frequently informed of patient's condition and current LOC. Will monitor patient's condition.
--- NOTE | 2021-04-15 14:26 | NUR ---
Notified Dr. Santillan that patient has lower extremity edema and still having hematuria despite receiving IVF. Dr. Santillan did not give a stop date on IVF but ordered to refer patient to Dr. Guerrero, urologist.
--- NOTE | 2021-04-15 14:55 | NUR ---
Placed a call to Dr. Bergeron's office urologist, spoke with Rosa requesting for urology consult secondary to hematuria. Awaiting for MD to call back.
[2021-04-15] MEDS ORDERED: SILVER NITRATE APPLICATOR 1 EA BOX TP ONE (15:00)
[2021-04-15] MEDS: ACETAMINOPHEN SUP SA PATIENTS 650 MG SUPP RC PRN (15:35)
--- NOTE | 2021-04-15 18:00 | NUR ---
Updated patient's sister Shae of patient's condition. Informed Shae debridement of R hip was not performed due to elevated HR 127. BRITTNI Higgins decided she will do it tomorrow. At this time patient's HR at 95. HEADRIG SAWYER Jennifer Porras seen and examined resident aware that debridement was postponed till tomorrow, gave an order to give Picabo PRN Q 8 hours and to change routine Picabo to once a prior to wound treatment. Order carried out.
[2021-04-15 19:14] VITALS: BP 89/55
[2021-04-15 19:28] VITALS: BP 93/63
--- NOTE | 2021-04-15 19:45 | NUR ---
Received patient with low BP 89/53 RR 25,temp 99.1 O2 sats 99% lethargic,no respiratory distress. BP re check after 15 minutes and obtained BP 93/63. Still on continuous IV hydration of 1/2 NS 100 ml/hr. Will continue to monitor.
[2021-04-15] MEDS: LATANOPROST EYE DROP 0.005% 2.5 ML BOTTLE EACHEYE SCH (21:21)
[2021-04-15] MEDS: ATORVASTATIN 40 MG TABLET GT SCH (21:21)
[2021-04-15 21:56] VITALS: BP 100/56
[2021-04-15] MEDS: MAGNESIUM HYDROXIDE 30 ML UDC GT PRN (22:00)
[2021-04-15] MEDS: ONDANSETRON 4 MG TAB.RAPDIS GT PRN (22:00)
[2021-04-15 23:57] VITALS: BP 93/56
[2021-04-16] MEDS: POLYVINYL ALCOHOL 15 ML BOTTLE OP SCH ×5 (00:57→23:22)
[2021-04-16] MEDS: IPRATROPIUM HALF ST 0.25 MG/1.25 ML VIAL.NEB NEB SCH ×4 (01:43→19:36)
[2021-04-16] MEDS: ALBUTEROL FS 2.5 MG/0.5 ML VIAL.NEB NEB SCH ×4 (01:43→19:36)
[2021-04-16] MEDS: MAGNESIUM HYDROXIDE 30 ML UDC GT PRN (02:59)
[2021-04-16] MEDS: MEROPENEM 500 MG in IV NS 0.9% 50 ML IV SCH ×3 (04:43→21:00)
[2021-04-16] MEDS: IV 1/2NS 1000 ML 1,000 ML IV PRN (04:43)
[2021-04-16] MEDS: JEVITY 1.2 CAL 1,000 ML BOTTLE GT PRN (05:29)
[2021-04-16] MEDS: BISACODYL SUPP (10 MG) 10 MG/SUPP.RECT SUPP.RECT RC PRN (06:34)
--- NOTE | 2021-04-16 06:34 | NUR ---
Patient comfortable during the night,no respiratory distress noted.Hematuria still noted with 550ml output for 12 hours. Patient with generalized edema.Repositioned comfortably. 0500 BP 97/57,HR 105 RR 21 O2 sats 99%. Will continue to monitor and will endorsed.
[2021-04-16] MEDS: HYDROGEN PEROXIDE 480 ML BOTTLE TP SCH ×2 (08:06→21:00)
[2021-04-16] MEDS: LISINOPRIL (5MG) 5 MG TABLET GT SCH (09:00)
[2021-04-16] MEDS: DOCUSATE SODIUM LIQ 100 MG/10 ML UDC GT SCH ×2 (09:36→16:07)
[2021-04-16] MEDS: TIMOLOL 0.5% SOLN OPHTH 5 ML BOTTLE EACHEYE SCH ×2 (09:36→16:07)
[2021-04-16] MEDS: FERROUS SULFATE - FOR SA ONLY 330 MG/7.5 ML UDC GT SCH ×2 (09:36→16:07)
[2021-04-16] MEDS: LORATADINE 10 MG TABLET GT SCH (09:36)
[2021-04-16] MEDS: BICALUTAMIDE 50 MG TABLET GT SCH (09:36)
[2021-04-16] MEDS: FOLIC ACID 1 MG TABLET GT SCH (09:37)
[2021-04-16] MEDS: BACLOFEN (10 MG) 10 MG TABLET GT SCH (09:37)
[2021-04-16] MEDS: ARGININE/GLUTAMINE/CALCIUM BMB 1 EACH POWD.PACK GT SCH ×2 (09:37→16:07)
[2021-04-16] MEDS: HYDROCODONE/APAP 5/325MG TABLET GT SCH (09:37)
[2021-04-16] MEDS: MULTIVIT W/MINERALS 1 TAB TABLET GT SCH (09:39)
[2021-04-16] MEDS: PROSOURCE / PROSTAT (PYXIS) 30 ML UDC GT SCH ×4 (09:39→21:25)
[2021-04-16] MEDS: PYRIDOXINE HCL 50 MG TABLET GT SCH (09:39)
[2021-04-16] MEDS: PANTOPRAZOLE 40 MG/PACK PACK GT SCH (09:39)
[2021-04-16 09:59] LABS: CALCIUM, SERUM 8.3 mg/dL (8.5-10.1); CREATININE 0.6 mg/dL (0.6-1.3); POTASSIUM 5.2 mmol/L (3.5-5.1)
[2021-04-16 10:25] LABS: BASOPHILS # (AUTO) 0.1 K/uL (0.0-0.2); BASOPHILS % (AUTO) 0.7 % (0.0-2.0); EOSINOPHILS % (AUTO) 4.2 % (0.0-6.0); HEMATOCRIT 23 % (39-51); HEMOGLOBIN 7.4 g/dL (13.5-17.5); LYMPHOCYTES % (AUTO) 12.7 % (20.0-44.0); MEAN CORPUSCULAR HGB CONC 33 g/dl (31.0-36.0); MEAN CORPUSCULAR VOLUME 92 fL (80-96); MONOCYTES # (AUTO) 0.8 K/uL (0.1-1.30); MONOCYTES % (AUTO) 10.7 % (2.0-12.0); NEUTROPHILS # (AUTO) 5.6 K/uL (1.8-8.9); NEUTROPHILS % (AUTO) 71.7 % (43.0-81.0); PLATELET COUNT (AUTO) 267 K/uL (150-450); RED BLOOD CELL COUNT(AUTO) 2.48 MIL/uL (4.5-6.0); WHITE BLOOD COUNT (AUTO) 7.8 K/uL (4.3-11.0)
[2021-04-16] MEDS: POVIDONE-IODINE OINT 28.4 GM TUBE TP SCH ×3 (10:30)
[2021-04-16] MEDS: DAKINS QUARTER STRENGTH (0.125%) 480 ML BOTTLE TOP SCH (10:30)
[2021-04-16] MEDS: Z GUARD REMEDY 4 OZ OINT TP SCH ×2 (10:30→21:25)
[2021-04-16] MEDS: VITAMINS A AND D 56.7 GM TUBE TP SCH ×3 (10:30→21:26)
--- NOTE | 2021-04-16 11:00 | NUR ---
Relayed lab results to ANGELLA Porras. Received order to repeat CBC on 04/19/21.
[2021-04-16] MEDS: VANCOMYCIN 1.25 GM in IV D5W 250 ML IV SCH (13:00)
--- NOTE | 2021-04-16 14:15 | NUR ---
BRITTNI Clark performed right hip wound debridement. Pt tolerated procedure well. Small amount of bleeding noted. BRITTNI Clark applied silver nitrate to stop bleeding. Right hip wound was packed with gauze moistened with 1/4 strength Dakin's solution then covered with abdominal pad. She said she will come once or twice a week to monitor/debride it. Notified pt's sister.
[2021-04-16 14:54] VITALS: BP 115/70
[2021-04-16] MEDS: ACETAMINOPHEN 650 MG/20 ML UDC- SA PATIENTS-PAIN ONLY GT PRN ×2 (16:27→23:22)
[2021-04-16 19:41] VITALS: BP_SYST 115; BP_SYST 124; BP_DIAS 50; BP_DIAS 69
[2021-04-16] MEDS: LATANOPROST EYE DROP 0.005% 2.5 ML BOTTLE EACHEYE SCH (21:26)
[2021-04-16] MEDS: ATORVASTATIN 40 MG TABLET GT SCH (21:26)
[2021-04-17] MEDS: ALBUTEROL FS 2.5 MG/0.5 ML VIAL.NEB NEB SCH ×4 (01:26→19:46)
[2021-04-17] MEDS: IPRATROPIUM HALF ST 0.25 MG/1.25 ML VIAL.NEB NEB SCH ×4 (01:26→19:46)
[2021-04-17 02:08] VITALS: BP 112/50
[2021-04-17] MEDS: HYDROCODONE/APAP 5/325MG TABLET PO PRN (03:46)
[2021-04-17] MEDS: JEVITY 1.2 CAL 1,000 ML BOTTLE GT PRN (05:22)
[2021-04-17] MEDS: POLYVINYL ALCOHOL 15 ML BOTTLE OP SCH ×4 (05:22→23:10)
[2021-04-17] MEDS: MEROPENEM 500 MG in IV NS 0.9% 50 ML IV SCH ×3 (05:30→20:48)
[2021-04-17] MEDS: IV 1/2NS 1000 ML 1,000 ML IV PRN ×2 (05:30→17:34)
--- NOTE | 2021-04-17 06:37 | NUR ---
Patient vitals stable during the night,weak and pale looking. Arousable with pain stimuli.No respiratory distress.No emesis.Hematuria still continues.On continuous IV hydration of 1/2 NS 100 ml/hr.Will continue to monitor closely and will endorse.
[2021-04-17 07:18] VITALS: BP 99/69
[2021-04-17] MEDS: HYDROGEN PEROXIDE 480 ML BOTTLE TP SCH ×2 (08:15→21:09)
[2021-04-17] MEDS: LISINOPRIL (5MG) 5 MG TABLET GT SCH (09:00)
[2021-04-17] MEDS: HYDROCODONE/APAP 5/325MG TABLET GT SCH (09:06)
[2021-04-17] MEDS: TIMOLOL 0.5% SOLN OPHTH 5 ML BOTTLE EACHEYE SCH ×2 (09:14→17:27)
[2021-04-17] MEDS: LORATADINE 10 MG TABLET GT SCH (09:19)
[2021-04-17] MEDS: DOCUSATE SODIUM LIQ 100 MG/10 ML UDC GT SCH ×2 (09:19→17:27)
[2021-04-17] MEDS: BACLOFEN (10 MG) 10 MG TABLET GT SCH (09:19)
[2021-04-17] MEDS: ARGININE/GLUTAMINE/CALCIUM BMB 1 EACH POWD.PACK GT SCH ×2 (09:19→17:27)
[2021-04-17] MEDS: BICALUTAMIDE 50 MG TABLET GT SCH (09:19)
[2021-04-17] MEDS: FOLIC ACID 1 MG TABLET GT SCH (09:19)
[2021-04-17] MEDS: FERROUS SULFATE - FOR SA ONLY 330 MG/7.5 ML UDC GT SCH ×2 (09:19→17:27)
[2021-04-17] MEDS: [UNRECOGNIZED DRUG - OTHER] GT SCH (09:19)
[2021-04-17] MEDS: PYRIDOXINE HCL 50 MG TABLET GT SCH (09:20)
[2021-04-17] MEDS: MULTIVIT W/MINERALS 1 TAB TABLET GT SCH (09:20)
[2021-04-17] MEDS: PROSOURCE / PROSTAT (PYXIS) 30 ML UDC GT SCH ×4 (09:20→21:32)
[2021-04-17] MEDS: PANTOPRAZOLE 40 MG/PACK PACK GT SCH (09:20)
[2021-04-17] MEDS: VITAMINS A AND D 56.7 GM TUBE TP SCH ×3 (09:21→21:32)
[2021-04-17] MEDS: DAKINS QUARTER STRENGTH (0.125%) 480 ML BOTTLE TOP SCH (09:21)
[2021-04-17] MEDS: Z GUARD REMEDY 4 OZ OINT TP SCH ×2 (09:21→21:32)
[2021-04-17] MEDS: POVIDONE-IODINE OINT 28.4 GM TUBE TP SCH ×4 (09:21→09:25)
--- NOTE | 2021-04-17 11:00 | NUR ---
Informed Dr. Santillan that pt still having hematuria and Hgb is at 7.4 and pt will have labs drawn on Monday. No new orders at this time per MD and to wait for lab results on Monday. Will continue to monitor pt at this time.
[2021-04-17 12:09] VITALS: BP 101/65
[2021-04-17] MEDS: ACETAMINOPHEN 650 MG/20 ML UDC- SA PATIENTS-PAIN ONLY GT PRN (14:32)
[2021-04-17 19:52] VITALS: BP 117/71
--- NOTE | 2021-04-17 20:55 | NUR ---
RN NOTES SEEN AND EXAMINED BY WITH NO NEW ORDERS.
[2021-04-17] MEDS: ATORVASTATIN 40 MG TABLET GT SCH (21:32)
[2021-04-17] MEDS: LATANOPROST EYE DROP 0.005% 2.5 ML BOTTLE EACHEYE SCH (21:32)
[2021-04-18] MEDS: IPRATROPIUM HALF ST 0.25 MG/1.25 ML VIAL.NEB NEB SCH ×4 (01:20→20:05)
[2021-04-18] MEDS: ALBUTEROL FS 2.5 MG/0.5 ML VIAL.NEB NEB SCH ×4 (01:20→20:05)
[2021-04-18 02:27] VITALS: BP 109/68
[2021-04-18] MEDS: IV 1/2NS 1000 ML 1,000 ML IV PRN ×2 (05:34→16:30)
[2021-04-18] MEDS: POLYVINYL ALCOHOL 15 ML BOTTLE OP SCH ×3 (06:01→17:03)
[2021-04-18 08:37] LABS: CALCIUM, SERUM 8.2 mg/dL (8.5-10.1); CREATININE 0.7 mg/dL (0.6-1.3); POTASSIUM 4.9 mmol/L (3.5-5.1)
[2021-04-18] MEDS: HYDROGEN PEROXIDE 480 ML BOTTLE TP SCH ×2 (09:00→20:05)
[2021-04-18] MEDS: LISINOPRIL (5MG) 5 MG TABLET GT SCH (09:00)
[2021-04-18 09:02] VITALS: BP 95/69
--- NOTE | 2021-04-18 09:10 | NUR ---
Seen and examined by Dr. Guerrero, informed of continues hematuria, gave order to start Cefriaxone 1 gram IV x 3 days for UTI, afebrile, no s/s of resp distress. Will continue to monitor.
[2021-04-18] MEDS: FERROUS SULFATE - FOR SA ONLY 330 MG/7.5 ML UDC GT SCH ×2 (09:51→16:56)
[2021-04-18] MEDS: LORATADINE 10 MG TABLET GT SCH (09:51)
[2021-04-18] MEDS: BICALUTAMIDE 50 MG TABLET GT SCH (09:51)
[2021-04-18] MEDS: DOCUSATE SODIUM LIQ 100 MG/10 ML UDC GT SCH ×2 (09:51→16:56)
[2021-04-18] MEDS: TIMOLOL 0.5% SOLN OPHTH 5 ML BOTTLE EACHEYE SCH ×2 (09:51→16:56)
[2021-04-18] MEDS: ARGININE/GLUTAMINE/CALCIUM BMB 1 EACH POWD.PACK GT SCH ×2 (09:52→16:56)
[2021-04-18] MEDS: HYDROCODONE/APAP 5/325MG TABLET GT SCH (09:52)
[2021-04-18] MEDS: FOLIC ACID 1 MG TABLET GT SCH (09:52)
[2021-04-18] MEDS: BACLOFEN (10 MG) 10 MG TABLET GT SCH (09:52)
[2021-04-18] MEDS: MULTIVIT W/MINERALS 1 TAB TABLET GT SCH (09:53)
[2021-04-18] MEDS: POVIDONE-IODINE OINT 28.4 GM TUBE TP SCH ×4 (09:53→09:54)
[2021-04-18] MEDS: PROSOURCE / PROSTAT (PYXIS) 30 ML UDC GT SCH ×4 (09:53→21:00)
[2021-04-18] MEDS: PYRIDOXINE HCL 50 MG TABLET GT SCH (09:53)
[2021-04-18] MEDS: PANTOPRAZOLE 40 MG/PACK PACK GT SCH (09:53)
[2021-04-18] MEDS: DAKINS QUARTER STRENGTH (0.125%) 480 ML BOTTLE TOP SCH (09:53)
[2021-04-18] MEDS: VITAMINS A AND D 56.7 GM TUBE TP SCH ×3 (09:54→21:00)
[2021-04-18] MEDS: Z GUARD REMEDY 4 OZ OINT TP SCH ×2 (09:54→21:00)
[2021-04-18] MEDS: JEVITY 1.2 CAL 1,000 ML BOTTLE GT PRN (09:54)
[2021-04-18] MEDS: CEFTRIAXONE 1 G in IV D5W 50 ML IV SCH (13:36)
[2021-04-18 14:30] VITALS: BP 132/84
[2021-04-18] MEDS: ACETAMINOPHEN 650 MG/20 ML UDC- SA PATIENTS-PAIN ONLY GT PRN (16:01)
[2021-04-18 20:15] VITALS: BP 123/69
[2021-04-18] MEDS: ATORVASTATIN 40 MG TABLET GT SCH (22:41)
[2021-04-18] MEDS: LATANOPROST EYE DROP 0.005% 2.5 ML BOTTLE EACHEYE SCH (22:41)
[2021-04-19] VITALS (8 sets, daily range): BP systolic 114–142; BP diastolic 63–89
[2021-04-19] MEDS: POLYVINYL ALCOHOL 15 ML BOTTLE OP SCH ×5 (00:23→23:03)
[2021-04-19] MEDS: IPRATROPIUM HALF ST 0.25 MG/1.25 ML VIAL.NEB NEB SCH ×4 (01:39→20:13)
[2021-04-19] MEDS: ALBUTEROL FS 2.5 MG/0.5 ML VIAL.NEB NEB SCH ×4 (01:39→20:13)
[2021-04-19] MEDS: LISINOPRIL (5MG) 5 MG TABLET GT SCH (09:00)
[2021-04-19] MEDS: TIMOLOL 0.5% SOLN OPHTH 5 ML BOTTLE EACHEYE SCH ×2 (09:00→17:20)
[2021-04-19] MEDS: HYDROGEN PEROXIDE 480 ML BOTTLE TP SCH ×2 (09:00→20:13)
[2021-04-19] MEDS: FERROUS SULFATE - FOR SA ONLY 330 MG/7.5 ML UDC GT SCH ×2 (09:01→17:20)
[2021-04-19] MEDS: [UNRECOGNIZED DRUG - OTHER] GT SCH (09:01)
[2021-04-19] MEDS: ARGININE/GLUTAMINE/CALCIUM BMB 1 EACH POWD.PACK GT SCH ×2 (09:01→17:20)
[2021-04-19] MEDS: DOCUSATE SODIUM LIQ 100 MG/10 ML UDC GT SCH ×2 (09:01→17:20)
[2021-04-19] MEDS: FOLIC ACID 1 MG TABLET GT SCH (09:01)
[2021-04-19] MEDS: LORATADINE 10 MG TABLET GT SCH (09:01)
[2021-04-19] MEDS: BICALUTAMIDE 50 MG TABLET GT SCH (09:01)
[2021-04-19] MEDS: BACLOFEN (10 MG) 10 MG TABLET GT SCH (09:01)
[2021-04-19] MEDS: PROSOURCE / PROSTAT (PYXIS) 30 ML UDC GT SCH ×4 (09:02→21:18)
[2021-04-19] MEDS: HYDROCODONE/APAP 5/325MG TABLET GT SCH (09:02)
[2021-04-19] MEDS: MULTIVIT W/MINERALS 1 TAB TABLET GT SCH (09:02)
[2021-04-19] MEDS: PANTOPRAZOLE 40 MG/PACK PACK GT SCH (09:02)
[2021-04-19] MEDS: PYRIDOXINE HCL 50 MG TABLET GT SCH (09:02)
[2021-04-19] MEDS: Z GUARD REMEDY 4 OZ OINT TP SCH ×2 (09:45→21:18)
[2021-04-19] MEDS: VITAMINS A AND D 56.7 GM TUBE TP SCH ×3 (09:45→21:18)
[2021-04-19] MEDS: POVIDONE-IODINE OINT 28.4 GM TUBE TP SCH ×4 (09:45)
[2021-04-19] MEDS: DAKINS QUARTER STRENGTH (0.125%) 480 ML BOTTLE TOP SCH (09:45)
[2021-04-19] MEDS: JEVITY 1.2 CAL 1,000 ML BOTTLE GT PRN (10:34)
[2021-04-19 10:53] LABS: BASOPHILS % (AUTO) 0.3 % (0.0-2.0); EOSINOPHILS % (AUTO) 3.2 % (0.0-6.0); HEMATOCRIT 22 % (39-51); LYMPHOCYTES # (AUTO) 0.8 K/uL (0.8-4.8); LYMPHOCYTES % (AUTO) 8.4 % (20.0-44.0); MEAN CORPUSCULAR HGB CONC 32 g/dl (31.0-36.0); MEAN CORPUSCULAR VOLUME 93 fL (80-96); MONOCYTES # (AUTO) 0.9 K/uL (0.1-1.30); MONOCYTES % (AUTO) 9.3 % (2.0-12.0); NEUTROPHILS # (AUTO) 7.8 K/uL (1.8-8.9); NEUTROPHILS % (AUTO) 78.8 % (43.0-81.0); PLATELET COUNT (AUTO) 269 K/uL (150-450); RED BLOOD CELL COUNT(AUTO) 2.33 MIL/uL (4.5-6.0); WHITE BLOOD COUNT (AUTO) 9.9 K/uL (4.3-11.0)
--- NOTE | 2021-04-19 11:34 | NUR ---
Relayed Hgb 7.[address] Santillan. He ordered to transfuse 1 unit of PRBC. Pt still with hematuria. Dr Santillan aware.
[2021-04-19] MEDS: CEFTRIAXONE 1 G in IV D5W 50 ML IV SCH (12:14)
[2021-04-19 13:58] LABS: EOSINOPHILS % (MANUAL) 5 % (0-4); LYMPHOCYTES % (MANUAL) 11 % (16-48); MONOCYTES % (MANUAL) 9 % (0-11.0); NEUTROPHILS % (MANUAL) 75 (42-76)
--- NOTE | 2021-04-19 15:04 | NUR ---
Started transfusing 1 unit of PRBC. T 99.1 F BP 140/72 P 104 R 22 O2 sat 100%.
--- NOTE | 2021-04-19 15:18 | NUR ---
No adverse reactions to blood transfusion noted.
[2021-04-19] MEDS: ACETAMINOPHEN 650 MG/20 ML UDC- SA PATIENTS-PAIN ONLY GT PRN (17:21)
[2021-04-19] MEDS: BISACODYL SUPP (10 MG) 10 MG/SUPP.RECT SUPP.RECT RC PRN (18:12)
--- NOTE | 2021-04-19 18:40 | NUR ---
Transfused 1 unit of PRBC. Pt tolerated well, no adverse reactions noted.
--- NOTE | 2021-04-19 20:00 | NUR ---
RN NOTES Received pt in stable condition. S/P blood transfusion, no A/R noted. Will continue to monitor.
[2021-04-19] MEDS: ATORVASTATIN 40 MG TABLET GT SCH (21:19)
[2021-04-19] MEDS: LATANOPROST EYE DROP 0.005% 2.5 ML BOTTLE EACHEYE SCH (21:19)
[2021-04-20 00:35] VITALS: BP 117/68
[2021-04-20] MEDS: IPRATROPIUM HALF ST 0.25 MG/1.25 ML VIAL.NEB NEB SCH ×4 (01:05→19:30)
[2021-04-20] MEDS: ALBUTEROL FS 2.5 MG/0.5 ML VIAL.NEB NEB SCH ×4 (01:05→19:30)
[2021-04-20] MEDS: POLYVINYL ALCOHOL 15 ML BOTTLE OP SCH ×4 (05:25→23:34)
--- NOTE | 2021-04-20 06:00 | NUR ---
RN NOTES Noted pt with generalized edema. Pt continues with 1/2 NS @ 100ml/hr. Will endorse to oncoming shift to notify
[2021-04-20] MEDS: PROSOURCE / PROSTAT (PYXIS) 30 ML UDC GT SCH ×4 (09:00→21:05)
[2021-04-20] MEDS: VITAMINS A AND D 56.7 GM TUBE TP SCH ×3 (09:00→21:05)
[2021-04-20] MEDS: TIMOLOL 0.5% SOLN OPHTH 5 ML BOTTLE EACHEYE SCH ×2 (09:00→17:00)
[2021-04-20] MEDS: FERROUS SULFATE - FOR SA ONLY 330 MG/7.5 ML UDC GT SCH ×2 (09:00→17:00)
[2021-04-20] MEDS: DOCUSATE SODIUM LIQ 100 MG/10 ML UDC GT SCH ×2 (09:00→17:00)
[2021-04-20] MEDS: PYRIDOXINE HCL 50 MG TABLET GT SCH (09:00)
[2021-04-20] MEDS: MULTIVIT W/MINERALS 1 TAB TABLET GT SCH (09:00)
[2021-04-20] MEDS: LISINOPRIL (5MG) 5 MG TABLET GT SCH (09:00)
[2021-04-20] MEDS: HYDROCODONE/APAP 5/325MG TABLET GT SCH ×2 (09:00→10:26)
[2021-04-20] MEDS: BICALUTAMIDE 50 MG TABLET GT SCH (09:00)
[2021-04-20] MEDS: DAKINS QUARTER STRENGTH (0.125%) 480 ML BOTTLE TOP SCH (09:00)
[2021-04-20] MEDS: ARGININE/GLUTAMINE/CALCIUM BMB 1 EACH POWD.PACK GT SCH ×2 (09:00→17:00)
[2021-04-20] MEDS: BACLOFEN (10 MG) 10 MG TABLET GT SCH (09:00)
[2021-04-20] MEDS: POVIDONE-IODINE OINT 28.4 GM TUBE TP SCH ×4 (09:00)
[2021-04-20] MEDS: FOLIC ACID 1 MG TABLET GT SCH (09:00)
[2021-04-20] MEDS: PANTOPRAZOLE 40 MG/PACK PACK GT SCH (09:00)
[2021-04-20] MEDS: HYDROGEN PEROXIDE 480 ML BOTTLE TP SCH ×2 (09:00→20:38)
[2021-04-20] MEDS: LORATADINE 10 MG TABLET GT SCH (09:00)
[2021-04-20] MEDS: Z GUARD REMEDY 4 OZ OINT TP SCH ×2 (09:00→21:05)
[2021-04-20 09:51] VITALS: BP 93/61
[2021-04-20] MEDS: IV 1/2NS 1000 ML 1,000 ML IV PRN (12:00)
[2021-04-20] MEDS: CEFTRIAXONE 1 G in IV D5W 50 ML IV SCH (12:40)
--- NOTE | 2021-04-20 14:03 | NUR ---
Left message for Dr Santillan that pt still has hematuria, Hgb 9.0 Hct 29 post blood transfusion of 1 unit of PRBC. Also left message to ask him for a stop date on IV fluids, pt appears to have generalized swelling.
--- NOTE | 2021-04-20 14:10 | NUR ---
Dr Santillan ordered to DC 1/2 NS at 100 mL/hr IV. Notified pt's sister of swelling and order to DC IV fluids. Addendum: 04/20/21 at 1636 by NEW OSB[place]NE RN Notified Dr Santillan that pt's sister would like to speak with him regarding hematuria and consult with Dr Guerrero. Gave him her phone number.
[2021-04-20 15:18] VITALS: BP 122/58
[2021-04-20 19:51] VITALS: BP 128/66
[2021-04-20] MEDS: LATANOPROST EYE DROP 0.005% 2.5 ML BOTTLE EACHEYE SCH (21:06)
[2021-04-20] MEDS: ATORVASTATIN 40 MG TABLET GT SCH (21:06)
[2021-04-21] MEDS: IPRATROPIUM HALF ST 0.25 MG/1.25 ML VIAL.NEB NEB SCH ×4 (02:15→19:41)
[2021-04-21] MEDS: ALBUTEROL FS 2.5 MG/0.5 ML VIAL.NEB NEB SCH ×4 (02:15→19:41)
[2021-04-21] MEDS: POLYVINYL ALCOHOL 15 ML BOTTLE OP SCH ×3 (05:35→17:32)
[2021-04-21] MEDS: HYDROGEN PEROXIDE 480 ML BOTTLE TP SCH ×2 (07:33→19:41)
[2021-04-21 07:47] VITALS: BP 144/55
[2021-04-21] MEDS: BICALUTAMIDE 50 MG TABLET GT SCH (09:51)
[2021-04-21] MEDS: TIMOLOL 0.5% SOLN OPHTH 5 ML BOTTLE EACHEYE SCH ×2 (09:51→16:04)
[2021-04-21] MEDS: LORATADINE 10 MG TABLET GT SCH (09:51)
[2021-04-21] MEDS: FOLIC ACID 1 MG TABLET GT SCH (09:53)
[2021-04-21] MEDS: DOCUSATE SODIUM LIQ 100 MG/10 ML UDC GT SCH ×2 (09:53→16:04)
[2021-04-21] MEDS: BACLOFEN (10 MG) 10 MG TABLET GT SCH (09:53)
[2021-04-21] MEDS: ARGININE/GLUTAMINE/CALCIUM BMB 1 EACH POWD.PACK GT SCH ×2 (09:53→17:32)
[2021-04-21] MEDS: FERROUS SULFATE - FOR SA ONLY 330 MG/7.5 ML UDC GT SCH ×2 (09:53→16:04)
[2021-04-21] MEDS: PROSOURCE / PROSTAT (PYXIS) 30 ML UDC GT SCH ×4 (09:54→20:48)
[2021-04-21] MEDS: [UNRECOGNIZED DRUG - OTHER] GT SCH (09:54)
[2021-04-21] MEDS: PANTOPRAZOLE 40 MG/PACK PACK GT SCH (09:54)
[2021-04-21] MEDS: LISINOPRIL (5MG) 5 MG TABLET GT SCH (09:54)
[2021-04-21] MEDS: PYRIDOXINE HCL 50 MG TABLET GT SCH (09:54)
[2021-04-21] MEDS: MULTIVIT W/MINERALS 1 TAB TABLET GT SCH (09:54)
[2021-04-21] MEDS: VITAMINS A AND D 56.7 GM TUBE TP SCH ×3 (09:56→20:48)
[2021-04-21] MEDS: POVIDONE-IODINE OINT 28.4 GM TUBE TP SCH ×4 (09:56)
[2021-04-21] MEDS: Z GUARD REMEDY 4 OZ OINT TP SCH ×2 (09:56→20:48)
[2021-04-21] MEDS: DAKINS QUARTER STRENGTH (0.125%) 480 ML BOTTLE TOP SCH (09:56)
--- NOTE | 2021-04-21 10:05 | NUR ---
Family Invite to IDT: SW emailed the pt.'s Maciej CHARLTON inviting them to participate in 04/23/21 12:30 pm IDT meeting. MAURICIO will follow up accordingly.
[2021-04-21 12:25] VITALS: BP 135/68
--- NOTE | 2021-04-21 14:40 | NUR ---
[facility]: MAURICIO received call from [facility] [phone]. MAURICIO addressed her questions and transferred her to charge nurse to address medical Questions. MAURICIO emailed visitation guidelines to [facility] and she stated she will visit pt. 04/27/2021 11 am. Noted.
[2021-04-21] MEDS: JEVITY 1.2 CAL 1,000 ML BOTTLE GT PRN (16:04)
[2021-04-21] MEDS: ACETAMINOPHEN 650 MG/20 ML UDC- SA PATIENTS-PAIN ONLY GT PRN (16:06)
[2021-04-21 20:24] VITALS: BP 117/72
[2021-04-21] MEDS: LATANOPROST EYE DROP 0.005% 2.5 ML BOTTLE EACHEYE SCH (21:31)
[2021-04-21] MEDS: ATORVASTATIN 40 MG TABLET GT SCH (21:31)
[2021-04-21] MEDS: HYDROCODONE/APAP 5/325MG TABLET PO PRN (23:05)
[2021-04-22] MEDS: POLYVINYL ALCOHOL 15 ML BOTTLE OP SCH ×5 (00:09→23:54)
[2021-04-22 01:30] VITALS: BP 126/70
[2021-04-22] MEDS: ALBUTEROL FS 2.5 MG/0.5 ML VIAL.NEB NEB SCH ×4 (01:38→19:50)
[2021-04-22] MEDS: IPRATROPIUM HALF ST 0.25 MG/1.25 ML VIAL.NEB NEB SCH ×4 (01:38→19:50)
--- NOTE | 2021-04-22 05:58 | NUR ---
Patient is having hematuria. Upper and lower extremities with edema. No respiratory distress. Kept clean and comfortable.Will continue to monitor.
[2021-04-22 07:33] VITALS: BP 144/75
[2021-04-22] MEDS: HYDROGEN PEROXIDE 480 ML BOTTLE TP SCH ×2 (08:33→19:50)
[2021-04-22] MEDS: ARGININE/GLUTAMINE/CALCIUM BMB 1 EACH POWD.PACK GT SCH ×2 (09:18→17:04)
[2021-04-22] MEDS: PYRIDOXINE HCL 50 MG TABLET GT SCH (09:18)
[2021-04-22] MEDS: PANTOPRAZOLE 40 MG/PACK PACK GT SCH (09:18)
[2021-04-22] MEDS: LORATADINE 10 MG TABLET GT SCH (09:18)
[2021-04-22] MEDS: MULTIVIT W/MINERALS 1 TAB TABLET GT SCH (09:18)
[2021-04-22] MEDS: DOCUSATE SODIUM LIQ 100 MG/10 ML UDC GT SCH ×2 (09:18→17:04)
[2021-04-22] MEDS: TIMOLOL 0.5% SOLN OPHTH 5 ML BOTTLE EACHEYE SCH ×2 (09:18→17:04)
[2021-04-22] MEDS: LISINOPRIL (5MG) 5 MG TABLET GT SCH (09:18)
[2021-04-22] MEDS: FERROUS SULFATE - FOR SA ONLY 330 MG/7.5 ML UDC GT SCH ×2 (09:18→17:04)
[2021-04-22] MEDS: BICALUTAMIDE 50 MG TABLET GT SCH (09:18)
[2021-04-22] MEDS: BACLOFEN (10 MG) 10 MG TABLET GT SCH (09:18)
[2021-04-22] MEDS: FOLIC ACID 1 MG TABLET GT SCH (09:18)
[2021-04-22] MEDS: PROSOURCE / PROSTAT (PYXIS) 30 ML UDC GT SCH ×4 (09:18→20:16)
[2021-04-22 12:30] VITALS: BP 134/55
--- NOTE | 2021-04-22 12:57 | NUR ---
Family Invite to IDT: SW called the pt.'s Maciej CHARLTON inviting them to participate in 04/23/21 12:30 pm IDT meeting. Per Maciej she is available to participate. MAURICIO will follow up accordingly.
[2021-04-22] MEDS: HYDROCODONE/APAP 5/325MG TABLET GT SCH (15:30)
[2021-04-22] MEDS: POVIDONE-IODINE OINT 28.4 GM TUBE TP SCH ×4 (16:00)
[2021-04-22] MEDS: Z GUARD REMEDY 4 OZ OINT TP SCH ×2 (16:00→20:17)
[2021-04-22] MEDS: DAKINS QUARTER STRENGTH (0.125%) 480 ML BOTTLE TOP SCH (16:00)
[2021-04-22] MEDS: VITAMINS A AND D 56.7 GM TUBE TP SCH ×3 (16:00→20:17)
[2021-04-22] MEDS: JEVITY 1.2 CAL 1,000 ML BOTTLE GT PRN (17:00)
[2021-04-22 20:12] VITALS: BP 127/68
[2021-04-22] MEDS: ATORVASTATIN 40 MG TABLET GT SCH (21:06)
[2021-04-22] MEDS: LATANOPROST EYE DROP 0.005% 2.5 ML BOTTLE EACHEYE SCH (21:06)
[2021-04-22] MEDS: MAGNESIUM HYDROXIDE 30 ML UDC GT PRN (22:23)
[2021-04-22] MEDS: ACETAMINOPHEN 650 MG/20 ML UDC- SA PATIENTS-PAIN ONLY GT PRN (22:24)
[2021-04-23] MEDS: IPRATROPIUM HALF ST 0.25 MG/1.25 ML VIAL.NEB NEB SCH ×4 (01:30→20:09)
[2021-04-23] MEDS: ALBUTEROL FS 2.5 MG/0.5 ML VIAL.NEB NEB SCH ×4 (01:30→20:09)
[2021-04-23 02:27] VITALS: BP 120/69
[2021-04-23] MEDS: POLYVINYL ALCOHOL 15 ML BOTTLE OP SCH ×4 (05:08→23:20)
[2021-04-23] MEDS: BISACODYL SUPP (10 MG) 10 MG/SUPP.RECT SUPP.RECT RC PRN (06:13)
[2021-04-23 07:24] VITALS: BP 129/74
[2021-04-23] MEDS: HYDROGEN PEROXIDE 480 ML BOTTLE TP SCH ×2 (08:07→20:26)
[2021-04-23] MEDS: LISINOPRIL (5MG) 5 MG TABLET GT SCH (09:00)
[2021-04-23] MEDS: FOLIC ACID 1 MG TABLET GT SCH (09:42)
[2021-04-23] MEDS: FERROUS SULFATE - FOR SA ONLY 330 MG/7.5 ML UDC GT SCH ×2 (09:42→17:50)
[2021-04-23] MEDS: LORATADINE 10 MG TABLET GT SCH (09:42)
[2021-04-23] MEDS: BACLOFEN (10 MG) 10 MG TABLET GT SCH (09:42)
[2021-04-23] MEDS: BICALUTAMIDE 50 MG TABLET GT SCH (09:42)
[2021-04-23] MEDS: ARGININE/GLUTAMINE/CALCIUM BMB 1 EACH POWD.PACK GT SCH ×2 (09:42→17:50)
[2021-04-23] MEDS: [UNRECOGNIZED DRUG - OTHER] GT SCH (09:42)
[2021-04-23] MEDS: DOCUSATE SODIUM LIQ 100 MG/10 ML UDC GT SCH ×2 (09:42→17:50)
[2021-04-23] MEDS: TIMOLOL 0.5% SOLN OPHTH 5 ML BOTTLE EACHEYE SCH ×2 (09:42→17:50)
[2021-04-23] MEDS: HYDROCODONE/APAP 5/325MG TABLET GT SCH (09:43)
[2021-04-23] MEDS: PYRIDOXINE HCL 50 MG TABLET GT SCH (09:43)
[2021-04-23] MEDS: MULTIVIT W/MINERALS 1 TAB TABLET GT SCH (09:43)
[2021-04-23] MEDS: PANTOPRAZOLE 40 MG/PACK PACK GT SCH (09:43)
[2021-04-23] MEDS: PROSOURCE / PROSTAT (PYXIS) 30 ML UDC GT SCH ×4 (09:43→20:07)
--- NOTE | 2021-04-23 10:00 | NUR ---
Spoke with Sheela from Dr. Guerrero's office (urologist) regarding family's request to speak with MD with regards to plan of care. Dr. Guerrero's progress notes faxed to MD's office.
[2021-04-23] MEDS: POVIDONE-IODINE OINT 28.4 GM TUBE TP SCH ×4 (10:30)
[2021-04-23] MEDS: VITAMINS A AND D 56.7 GM TUBE TP SCH ×3 (10:30→20:07)
[2021-04-23] MEDS: Z GUARD REMEDY 4 OZ OINT TP SCH ×2 (10:30→20:07)
[2021-04-23] MEDS: DAKINS QUARTER STRENGTH (0.125%) 480 ML BOTTLE TOP SCH (10:30)
[2021-04-23] MEDS ORDERED: LIDOCAINE 1%-EPI 1:100,000 20 ML VIAL TP ONE (11:00)
--- NOTE | 2021-04-23 16:17 | NUR ---
INTERDISCIPLINARY PLAN OF CARE CONFERENCE took place today. The patients Maciej CHARLTON [phone] participated in IDT via phone conference. Dr. Sullivan and Interdisciplinary team discussed the plan of care in detail. Current orders as well as treatments and medications were reviewed. IDT addressed the CM questions. See other disciplines IDT notes for further details.
--- NOTE | 2021-04-23 16:18 | NUR ---
SS note: During IDT meeting Maciej CHARLTON [phone] stated she feels the pt.'s overall condition is declining in health and wounds are not healing. Charge nurse Faith explained to CM that the pt. had a 16 lb. weight gain possibly attributed to IV fluids and patient is edematous in the lower extremities. Maciej expressed understanding and stated that pt.'s sister Shae is waiting to speak to pt.'s urologist. Faith informed Maciej that she has notified Urologist, Dr. Guerrero of this and ,MD to follow up. Maciej is agreeable.
[2021-04-23] MEDS: ACETAMINOPHEN 650 MG/20 ML UDC- SA PATIENTS-PAIN ONLY GT PRN (17:58)
[2021-04-23] MEDS: JEVITY 1.2 CAL 1,000 ML BOTTLE GT PRN (18:15)
[2021-04-23 19:51] VITALS: BP 101/57
[2021-04-23] MEDS: ACETAMINOPHEN 650 MG/20 ML UDC- SA PATIENTS-FEVER ONLY GT PRN (20:07)
--- NOTE | 2021-04-23 20:17 | NUR ---
Patient with temp of 101.2 HR 110,RR23,O2 sats 97% BP 101/57.Notified Xenia Zazueta NP with new orders for blood culture x2,urine culture and sputum culture. Will carry out orders. Sister Shae made aware of SANDY and new orders.cooling measures provided,will continue to monitor.
[2021-04-23] MEDS: LATANOPROST EYE DROP 0.005% 2.5 ML BOTTLE EACHEYE SCH (21:15)
[2021-04-23] MEDS: ATORVASTATIN 40 MG TABLET GT SCH (21:15)
[2021-04-24 00:17] VITALS: BP 103/59
[2021-04-24] MEDS: ALBUTEROL FS 2.5 MG/0.5 ML VIAL.NEB NEB SCH ×4 (02:37→19:32)
[2021-04-24] MEDS: IPRATROPIUM HALF ST 0.25 MG/1.25 ML VIAL.NEB NEB SCH ×4 (02:37→19:32)
[2021-04-24] MEDS: POLYVINYL ALCOHOL 15 ML BOTTLE OP SCH ×4 (05:02→23:01)
[2021-04-24] MEDS: NA PHOS,M-B/NA PHOS,DI-BA 1 EA ENEMA RC PRN (05:03)
--- NOTE | 2021-04-24 06:36 | NUR ---
Patient with episodes of hematuria. Latest temp 98.6.For CXR ,CBC ,CMP and procalcitonin today. Will continue to monitor and endorse.
[2021-04-24 07:13] VITALS: BP 129/68
[2021-04-24] MEDS: HYDROGEN PEROXIDE 480 ML BOTTLE TP SCH ×2 (09:00→19:32)
[2021-04-24 09:23] LABS: BASOPHILS % (AUTO) 0.2 % (0.0-2.0); EOSINOPHILS % (AUTO) 3.1 % (0.0-6.0); HEMATOCRIT 27 % (39-51); HEMOGLOBIN 8.5 g/dL (13.5-17.5); LYMPHOCYTES # (AUTO) 1.1 K/uL (0.8-4.8); LYMPHOCYTES % (AUTO) 12.4 % (20.0-44.0); MEAN CORPUSCULAR HGB CONC 32 g/dl (31.0-36.0); MEAN CORPUSCULAR VOLUME 94 fL (80-96); MONOCYTES # (AUTO) 0.7 K/uL (0.1-1.30); MONOCYTES % (AUTO) 7.9 % (2.0-12.0); NEUTROPHILS % (AUTO) 76.4 % (43.0-81.0); PLATELET COUNT (AUTO) 273 K/uL (150-450); RED BLOOD CELL COUNT(AUTO) 2.85 MIL/uL (4.5-6.0); WHITE BLOOD COUNT (AUTO) 9.2 K/uL (4.3-11.0)
[2021-04-24] MEDS: LORATADINE 10 MG TABLET GT SCH (09:47)
[2021-04-24] MEDS: FOLIC ACID 1 MG TABLET GT SCH (09:47)
[2021-04-24] MEDS: ARGININE/GLUTAMINE/CALCIUM BMB 1 EACH POWD.PACK GT SCH ×2 (09:47→17:17)
[2021-04-24] MEDS: FERROUS SULFATE - FOR SA ONLY 330 MG/7.5 ML UDC GT SCH ×2 (09:47→17:17)
[2021-04-24] MEDS: TIMOLOL 0.5% SOLN OPHTH 5 ML BOTTLE EACHEYE SCH ×2 (09:47→17:17)
[2021-04-24] MEDS: BACLOFEN (10 MG) 10 MG TABLET GT SCH (09:47)
[2021-04-24] MEDS: HYDROCODONE/APAP 5/325MG TABLET GT SCH (09:47)
[2021-04-24] MEDS: LISINOPRIL (5MG) 5 MG TABLET GT SCH (09:47)
[2021-04-24] MEDS: BICALUTAMIDE 50 MG TABLET GT SCH (09:47)
[2021-04-24] MEDS: DOCUSATE SODIUM LIQ 100 MG/10 ML UDC GT SCH ×2 (09:47→17:17)
[2021-04-24] MEDS: PANTOPRAZOLE 40 MG/PACK PACK GT SCH (09:48)
[2021-04-24] MEDS: MULTIVIT W/MINERALS 1 TAB TABLET GT SCH (09:48)
[2021-04-24] MEDS: PYRIDOXINE HCL 50 MG TABLET GT SCH (09:48)
[2021-04-24] MEDS: PROSOURCE / PROSTAT (PYXIS) 30 ML UDC GT SCH ×4 (09:48→20:17)
[2021-04-24] MEDS: POVIDONE-IODINE OINT 28.4 GM TUBE TP SCH ×4 (11:00)
[2021-04-24] MEDS: VITAMINS A AND D 56.7 GM TUBE TP SCH ×3 (11:00→20:17)
[2021-04-24] MEDS: Z GUARD REMEDY 4 OZ OINT TP SCH ×2 (11:00→20:17)
[2021-04-24] MEDS: DAKINS QUARTER STRENGTH (0.125%) 480 ML BOTTLE TOP SCH (11:00)
[2021-04-24 11:06] LABS: BILIRUBIN,TOTAL 0.2 mg/dL (0.2-1.0); CALCIUM, SERUM 8.9 mg/dL (8.5-10.1); CREATININE 0.6 mg/dL (0.6-1.3); POTASSIUM 5.2 mmol/L (3.5-5.1); TOTAL PROTEIN, SERUM 6.8 g/dL (6.4-8.2)
[2021-04-24 11:13] LABS: ALBUMIN 1.1 g/dL (3.4-5.0)
--- NOTE | 2021-04-24 12:35 | NUR ---
Relayed chest xray result to Dr. Sullivan, no new order given.
--- NOTE | 2021-04-24 12:45 | NUR ---
Relayed CBC, CMP, Calcitonin level and chest X-ray result to ANGELLA Glaser. Patient afebrile at this time. V/S 97.5, 107, 16,100%, 144/72. No new orders given at this time.
[2021-04-24 14:04] VITALS: BP 144/72
[2021-04-24] MEDS: BISACODYL SUPP (10 MG) 10 MG/SUPP.RECT SUPP.RECT RC PRN (15:50)
[2021-04-24] MEDS: ACETAMINOPHEN 650 MG/20 ML UDC- SA PATIENTS-PAIN ONLY GT PRN (15:50)
[2021-04-24] MEDS: JEVITY 1.2 CAL 1,000 ML BOTTLE GT PRN (18:10)
--- NOTE | 2021-04-24 18:28 | NUR ---
Spoke with patient's sister Shae, updated of patient's condition like newly found L knee wound, persistent hematuria and patient's mental status. Patient is not responsive to verbal stimulation, at times seen opening his eyes, but not on command only to pain. Informed Shae that this nurse called Dr. Guerrero's office yesterday due to her request to speak with MD regarding his plan. Read Dr. Guerrero's progress notes to Shae indicating that if hematuria persist possible cystoscopy will be needed but due to patient's health status and contractures but it will be difficult. According to Shae she still wants to speak with Dr. Guerrero. Gave Dr. Guerrero's office number to patient's sister. She also expressed that she wants to know patient's prognosis and suggested to speak with Dr. Santillan which she said will call his office. Ms. Kaufman appreciated the call and said "I think you have updated me well of his condition".
[2021-04-24 19:25] VITALS: BP 123/73
[2021-04-24] MEDS: LATANOPROST EYE DROP 0.005% 2.5 ML BOTTLE EACHEYE SCH (21:23)
[2021-04-24] MEDS: ATORVASTATIN 40 MG TABLET GT SCH (21:24)
[2021-04-25 00:18] VITALS: BP 110/59
[2021-04-25] MEDS: ALBUTEROL FS 2.5 MG/0.5 ML VIAL.NEB NEB SCH ×4 (01:56→19:49)
[2021-04-25] MEDS: IPRATROPIUM HALF ST 0.25 MG/1.25 ML VIAL.NEB NEB SCH ×4 (01:56→19:49)
[2021-04-25] MEDS: MAGNESIUM HYDROXIDE 30 ML UDC GT PRN (05:05)
[2021-04-25] MEDS: POLYVINYL ALCOHOL 15 ML BOTTLE OP SCH ×3 (05:05→17:31)
[2021-04-25 07:43] VITALS: BP 119/71
[2021-04-25] MEDS: HYDROGEN PEROXIDE 480 ML BOTTLE TP SCH ×2 (08:19→19:49)
[2021-04-25] MEDS: BACI/NEOM/POLY B OINT PKT 1 UDPKT PACKET TP SCH (09:00)
[2021-04-25] MEDS: DAKINS QUARTER STRENGTH (0.125%) 480 ML BOTTLE TOP SCH (09:00)
[2021-04-25] MEDS: VITAMINS A AND D 56.7 GM TUBE TP SCH ×3 (09:00→21:28)
[2021-04-25] MEDS: POVIDONE-IODINE OINT 28.4 GM TUBE TP SCH ×4 (09:00)
[2021-04-25] MEDS: Z GUARD REMEDY 4 OZ OINT TP SCH ×2 (09:00→21:28)
[2021-04-25] MEDS: LORATADINE 10 MG TABLET GT SCH (09:56)
[2021-04-25] MEDS: DOCUSATE SODIUM LIQ 100 MG/10 ML UDC GT SCH ×2 (09:56→16:33)
[2021-04-25] MEDS: FERROUS SULFATE - FOR SA ONLY 330 MG/7.5 ML UDC GT SCH ×2 (09:56→16:33)
[2021-04-25] MEDS: FOLIC ACID 1 MG TABLET GT SCH (09:56)
[2021-04-25] MEDS: BICALUTAMIDE 50 MG TABLET GT SCH (09:56)
[2021-04-25] MEDS: [UNRECOGNIZED DRUG - OTHER] GT SCH (09:56)
[2021-04-25] MEDS: ARGININE/GLUTAMINE/CALCIUM BMB 1 EACH POWD.PACK GT SCH ×2 (09:56→16:33)
[2021-04-25] MEDS: BACLOFEN (10 MG) 10 MG TABLET GT SCH (09:56)
[2021-04-25] MEDS: TIMOLOL 0.5% SOLN OPHTH 5 ML BOTTLE EACHEYE SCH ×2 (09:56→16:33)
[2021-04-25] MEDS: PANTOPRAZOLE 40 MG/PACK PACK GT SCH (09:57)
[2021-04-25] MEDS: PROSOURCE / PROSTAT (PYXIS) 30 ML UDC GT SCH ×4 (09:57→21:28)
[2021-04-25] MEDS: HYDROCODONE/APAP 5/325MG TABLET GT SCH (09:57)
[2021-04-25] MEDS: LISINOPRIL (5MG) 5 MG TABLET GT SCH (09:57)
[2021-04-25] MEDS: MULTIVIT W/MINERALS 1 TAB TABLET GT SCH (09:58)
[2021-04-25] MEDS: PYRIDOXINE HCL 50 MG TABLET GT SCH (09:58)
[2021-04-25 12:26] VITALS: BP 124/68
[2021-04-25] MEDS: JEVITY 1.2 CAL 1,000 ML BOTTLE GT PRN (12:57)
[2021-04-25] MEDS: BISACODYL SUPP (10 MG) 10 MG/SUPP.RECT SUPP.RECT RC PRN (17:30)
[2021-04-25 20:06] VITALS: BP 113/80
[2021-04-25] MEDS: ATORVASTATIN 40 MG TABLET GT SCH (21:28)
[2021-04-25] MEDS: LATANOPROST EYE DROP 0.005% 2.5 ML BOTTLE EACHEYE SCH (21:28)
[2021-04-25] MEDS: ACETAMINOPHEN 650 MG/20 ML UDC- SA PATIENTS-PAIN ONLY GT PRN (21:29)
[2021-04-26] MEDS: POLYVINYL ALCOHOL 15 ML BOTTLE OP SCH ×5 (00:02→23:37)
[2021-04-26 01:02] VITALS: BP 106/60
[2021-04-26] MEDS: ALBUTEROL FS 2.5 MG/0.5 ML VIAL.NEB NEB SCH ×4 (02:00→19:33)
[2021-04-26] MEDS: IPRATROPIUM HALF ST 0.25 MG/1.25 ML VIAL.NEB NEB SCH ×4 (02:00→19:33)
[2021-04-26 07:31] VITALS: BP 115/64
[2021-04-26] MEDS: HYDROGEN PEROXIDE 480 ML BOTTLE TP SCH ×2 (08:07→21:05)
[2021-04-26] MEDS: LISINOPRIL (5MG) 5 MG TABLET GT SCH (09:00)
[2021-04-26] MEDS: ARGININE/GLUTAMINE/CALCIUM BMB 1 EACH POWD.PACK GT SCH ×2 (09:53→17:15)
[2021-04-26] MEDS: DOCUSATE SODIUM LIQ 100 MG/10 ML UDC GT SCH ×2 (09:53→17:15)
[2021-04-26] MEDS: BICALUTAMIDE 50 MG TABLET GT SCH (09:53)
[2021-04-26] MEDS: FOLIC ACID 1 MG TABLET GT SCH (09:53)
[2021-04-26] MEDS: LORATADINE 10 MG TABLET GT SCH (09:53)
[2021-04-26] MEDS: TIMOLOL 0.5% SOLN OPHTH 5 ML BOTTLE EACHEYE SCH ×2 (09:53→17:15)
[2021-04-26] MEDS: FERROUS SULFATE - FOR SA ONLY 330 MG/7.5 ML UDC GT SCH ×2 (09:53→17:15)
[2021-04-26] MEDS: BACLOFEN (10 MG) 10 MG TABLET GT SCH (09:54)
[2021-04-26] MEDS: MULTIVIT W/MINERALS 1 TAB TABLET GT SCH (09:54)
[2021-04-26] MEDS: HYDROCODONE/APAP 5/325MG TABLET GT SCH (09:54)
[2021-04-26] MEDS: PYRIDOXINE HCL 50 MG TABLET GT SCH (09:54)
[2021-04-26] MEDS: PANTOPRAZOLE 40 MG/PACK PACK GT SCH (09:54)
[2021-04-26] MEDS: PROSOURCE / PROSTAT (PYXIS) 30 ML UDC GT SCH ×4 (09:54→21:27)
[2021-04-26] MEDS: POVIDONE-IODINE OINT 28.4 GM TUBE TP SCH ×4 (10:30)
[2021-04-26] MEDS: DAKINS QUARTER STRENGTH (0.125%) 480 ML BOTTLE TOP SCH (10:30)
[2021-04-26] MEDS: Z GUARD REMEDY 4 OZ OINT TP SCH ×2 (10:30→21:27)
[2021-04-26] MEDS: VITAMINS A AND D 56.7 GM TUBE TP SCH ×3 (10:30→21:27)
[2021-04-26] MEDS: BACI/NEOM/POLY B OINT PKT 1 UDPKT PACKET TP SCH (10:30)
--- NOTE | 2021-04-26 10:30 | NUR ---
Seen by Dr Santillan. Informed him that pt's sister would like to speak with him. He said he will call her. Pt's urine yellowish with some tinge of blood.
[2021-04-26] MEDS: JEVITY 1.2 CAL 1,000 ML BOTTLE GT PRN (13:16)
--- NOTE | 2021-04-26 17:02 | NUR ---
Informed Dr Santillan that a staff tested positive for Covid-19. Educated staff to observe Covid precautions. Pt asymptomatic at this time.
[2021-04-26] MEDS: ACETAMINOPHEN 650 MG/20 ML UDC- SA PATIENTS-PAIN ONLY GT PRN (17:28)
--- NOTE | 2021-04-26 18:59 | NUR ---
Seen by ANGELLA Porras. Relayed recent lab results to her. No new order.
[2021-04-26 19:47] VITALS: BP 114/71
[2021-04-26] MEDS: LATANOPROST EYE DROP 0.005% 2.5 ML BOTTLE EACHEYE SCH (21:27)
[2021-04-26] MEDS: ATORVASTATIN 40 MG TABLET GT SCH (21:27)
[2021-04-27] MEDS: IPRATROPIUM HALF ST 0.25 MG/1.25 ML VIAL.NEB NEB SCH ×4 (01:01→20:06)
[2021-04-27] MEDS: ALBUTEROL FS 2.5 MG/0.5 ML VIAL.NEB NEB SCH ×4 (01:01→20:06)
[2021-04-27 01:11] VITALS: BP 124/70
[2021-04-27] MEDS: POLYVINYL ALCOHOL 15 ML BOTTLE OP SCH ×3 (05:32→18:44)
[2021-04-27 07:25] VITALS: BP 110/64
[2021-04-27] MEDS: HYDROGEN PEROXIDE 480 ML BOTTLE TP SCH ×2 (07:57→23:24)
[2021-04-27] MEDS: LISINOPRIL (5MG) 5 MG TABLET GT SCH (09:00)
[2021-04-27] MEDS: LORATADINE 10 MG TABLET GT SCH (09:54)
[2021-04-27] MEDS: FOLIC ACID 1 MG TABLET GT SCH (09:54)
[2021-04-27] MEDS: DOCUSATE SODIUM LIQ 100 MG/10 ML UDC GT SCH ×2 (09:54→16:52)
[2021-04-27] MEDS: BICALUTAMIDE 50 MG TABLET GT SCH (09:54)
[2021-04-27] MEDS: BACLOFEN (10 MG) 10 MG TABLET GT SCH (09:54)
[2021-04-27] MEDS: FERROUS SULFATE - FOR SA ONLY 330 MG/7.5 ML UDC GT SCH ×2 (09:54→16:52)
[2021-04-27] MEDS: [UNRECOGNIZED DRUG - OTHER] GT SCH (09:54)
[2021-04-27] MEDS: TIMOLOL 0.5% SOLN OPHTH 5 ML BOTTLE EACHEYE SCH ×2 (09:54→16:52)
[2021-04-27] MEDS: ARGININE/GLUTAMINE/CALCIUM BMB 1 EACH POWD.PACK GT SCH ×2 (09:54→16:52)
[2021-04-27] MEDS: PANTOPRAZOLE 40 MG/PACK PACK GT SCH (09:55)
[2021-04-27] MEDS: PROSOURCE / PROSTAT (PYXIS) 30 ML UDC GT SCH ×4 (09:55→20:49)
[2021-04-27] MEDS: MULTIVIT W/MINERALS 1 TAB TABLET GT SCH (09:55)
[2021-04-27] MEDS: PYRIDOXINE HCL 50 MG TABLET GT SCH (09:55)
[2021-04-27] MEDS: HYDROCODONE/APAP 5/325MG TABLET GT SCH (09:59)
[2021-04-27] MEDS: Z GUARD REMEDY 4 OZ OINT TP SCH ×2 (10:30→20:49)
[2021-04-27] MEDS: POVIDONE-IODINE OINT 28.4 GM TUBE TP SCH ×4 (10:30)
[2021-04-27] MEDS: BACI/NEOM/POLY B OINT PKT 1 UDPKT PACKET TP SCH (10:30)
[2021-04-27] MEDS: DAKINS QUARTER STRENGTH (0.125%) 480 ML BOTTLE TOP SCH (10:30)
[2021-04-27] MEDS: VITAMINS A AND D 56.7 GM TUBE TP SCH ×3 (10:30→20:49)
--- NOTE | 2021-04-27 11:00 | NUR ---
Kayla Pepper from the [facility] came to see pt. She showed her Covid-19 vaccination card and a copy was filed in the visitor log book. She denied any Covid symptoms, her temp 97.6 F. Instructed her regarding Covid precautions. Pt's sitter Carolina at bedside during the visit.
[2021-04-27 12:05] VITALS: BP 98/50
[2021-04-27] MEDS: JEVITY 1.2 CAL 1,000 ML BOTTLE GT PRN (12:08)
[2021-04-27] MEDS: ACETAMINOPHEN 650 MG/20 ML UDC- SA PATIENTS-PAIN ONLY GT PRN (15:01)
--- NOTE | 2021-04-27 16:40 | NUR ---
Facility Update: SW notified pt.'s family via [employer] Text that, "[facility] employee tested positive for COVID-19 this week. Residents and staff will be tested on a weekly basis until we have two consecutive weeks of negative test results. We will continue to implement [facility] infection control protocols and continue screening employees before and after every shift. [facility] continues to follow infection control protocols and screen our residents and staff daily for symptoms. For the safety of the family patient we will not be allowing visitors until we have received two consecutive weeks of negative COVID-19 test results. However, alternative form of communication is available (ie. Zoom video calls). Family can call the unit and schedule a video call.
--- NOTE | 2021-04-27 18:23 | NUR ---
Notified Dr Santillan that pt's urine was yellow this morning and now it is blood-tinged again. No new order at this time.
[2021-04-27 20:02] VITALS: BP 125/86
[2021-04-27] MEDS: ATORVASTATIN 40 MG TABLET GT SCH (21:30)
[2021-04-27] MEDS: LATANOPROST EYE DROP 0.005% 2.5 ML BOTTLE EACHEYE SCH (21:30)
[2021-04-28] MEDS: POLYVINYL ALCOHOL 15 ML BOTTLE OP SCH ×5 (00:13→23:46)
[2021-04-28] MEDS: IPRATROPIUM HALF ST 0.25 MG/1.25 ML VIAL.NEB NEB SCH ×4 (02:13→19:23)
[2021-04-28] MEDS: ALBUTEROL FS 2.5 MG/0.5 ML VIAL.NEB NEB SCH ×4 (02:13→19:23)
[2021-04-28 03:08] VITALS: BP 120/82
[2021-04-28 08:12] VITALS: BP 143/81
[2021-04-28] MEDS: HYDROGEN PEROXIDE 480 ML BOTTLE TP SCH ×2 (08:37→19:23)
[2021-04-28] MEDS: POVIDONE-IODINE OINT 28.4 GM TUBE TP SCH ×4 (09:00)
[2021-04-28] MEDS: BACI/NEOM/POLY B OINT PKT 1 UDPKT PACKET TP SCH (09:00)
[2021-04-28] MEDS: Z GUARD REMEDY 4 OZ OINT TP SCH ×2 (09:00→21:46)
[2021-04-28] MEDS: VITAMINS A AND D 56.7 GM TUBE TP SCH ×3 (09:00→21:46)
[2021-04-28] MEDS: BISACODYL SUPP (10 MG) 10 MG/SUPP.RECT SUPP.RECT RC PRN (09:00)
[2021-04-28] MEDS: DAKINS QUARTER STRENGTH (0.125%) 480 ML BOTTLE TOP SCH (09:00)
[2021-04-28] MEDS: BACLOFEN (10 MG) 10 MG TABLET GT SCH (09:24)
[2021-04-28] MEDS: PROSOURCE / PROSTAT (PYXIS) 30 ML UDC GT SCH ×4 (09:24→21:46)
[2021-04-28] MEDS: FOLIC ACID 1 MG TABLET GT SCH (09:24)
[2021-04-28] MEDS: FERROUS SULFATE - FOR SA ONLY 330 MG/7.5 ML UDC GT SCH ×2 (09:24→17:04)
[2021-04-28] MEDS: ARGININE/GLUTAMINE/CALCIUM BMB 1 EACH POWD.PACK GT SCH ×2 (09:24→17:04)
[2021-04-28] MEDS: BICALUTAMIDE 50 MG TABLET GT SCH (09:24)
[2021-04-28] MEDS: LORATADINE 10 MG TABLET GT SCH (09:24)
[2021-04-28] MEDS: HYDROCODONE/APAP 5/325MG TABLET GT SCH (09:24)
[2021-04-28] MEDS: PANTOPRAZOLE 40 MG/PACK PACK GT SCH (09:24)
[2021-04-28] MEDS: DOCUSATE SODIUM LIQ 100 MG/10 ML UDC GT SCH ×2 (09:24→17:04)
[2021-04-28] MEDS: LISINOPRIL (5MG) 5 MG TABLET GT SCH (09:24)
[2021-04-28] MEDS: MULTIVIT W/MINERALS 1 TAB TABLET GT SCH (09:24)
[2021-04-28] MEDS: PYRIDOXINE HCL 50 MG TABLET GT SCH (09:25)
[2021-04-28] MEDS: TIMOLOL 0.5% SOLN OPHTH 5 ML BOTTLE EACHEYE SCH ×2 (09:26→17:04)
--- NOTE | 2021-04-28 13:22 | NUR ---
SS Note: SW notified Dr. Santillan that pt.'s sister, Shae N. [phone] has requested to speak to him.
--- NOTE | 2021-04-28 14:20 | NUR ---
Seen and examined by ANGELLA Porras, reviewed previous laboratory result, CBC, CMP, ordered dietary evaluation due to low Albumin level 1.1. Order carried out.
[2021-04-28] MEDS: JEVITY 1.2 CAL 1,000 ML BOTTLE GT PRN (15:31)
--- NOTE | 2021-04-28 16:28 | NUR ---
Family Invite to IDT: MAURICIO emailed the pt.'s ZOLTAN Wing inviting them to participate in 04/30/2021 IDT Meeting. MAURICIO will follow up accordingly.
[2021-04-28 19:20] VITALS: BP 105/67
[2021-04-28] MEDS: LATANOPROST EYE DROP 0.005% 2.5 ML BOTTLE EACHEYE SCH (21:46)
[2021-04-28] MEDS: ATORVASTATIN 40 MG TABLET GT SCH (21:46)
[2021-04-28] MEDS: ACETAMINOPHEN 650 MG/20 ML UDC- SA PATIENTS-PAIN ONLY GT PRN (21:47)
[2021-04-28 23:59] VITALS: BP 104/61
[2021-04-29] MEDS: IPRATROPIUM HALF ST 0.25 MG/1.25 ML VIAL.NEB NEB SCH ×4 (02:03→19:31)
[2021-04-29] MEDS: ALBUTEROL FS 2.5 MG/0.5 ML VIAL.NEB NEB SCH ×4 (02:03→19:31)
--- NOTE | 2021-04-29 05:16 | NUR ---
Patient noted with penile and scrotal swelling. Still with hematuria small to moderate amount. Will continue to monitor and will endorse to AM shift.
[2021-04-29] MEDS: POLYVINYL ALCOHOL 15 ML BOTTLE OP SCH ×4 (06:05→23:15)
[2021-04-29 07:20] VITALS: BP 118/68
[2021-04-29] MEDS: POVIDONE-IODINE OINT 28.4 GM TUBE TP SCH ×4 (09:00)
[2021-04-29] MEDS: HYDROGEN PEROXIDE 480 ML BOTTLE TP SCH ×2 (09:00→19:31)
[2021-04-29] MEDS: Z GUARD REMEDY 4 OZ OINT TP SCH ×2 (09:00→20:45)
[2021-04-29] MEDS: VITAMINS A AND D 56.7 GM TUBE TP SCH ×3 (09:00→20:45)
[2021-04-29] MEDS: BACI/NEOM/POLY B OINT PKT 1 UDPKT PACKET TP SCH (09:00)
[2021-04-29] MEDS: DAKINS QUARTER STRENGTH (0.125%) 480 ML BOTTLE TOP SCH (09:00)
[2021-04-29] MEDS: LORATADINE 10 MG TABLET GT SCH (09:05)
[2021-04-29] MEDS: DOCUSATE SODIUM LIQ 100 MG/10 ML UDC GT SCH ×2 (09:05→16:44)
[2021-04-29] MEDS: BICALUTAMIDE 50 MG TABLET GT SCH (09:05)
[2021-04-29] MEDS: ARGININE/GLUTAMINE/CALCIUM BMB 1 EACH POWD.PACK GT SCH ×2 (09:06→16:44)
[2021-04-29] MEDS: FOLIC ACID 1 MG TABLET GT SCH (09:06)
[2021-04-29] MEDS: FERROUS SULFATE - FOR SA ONLY 330 MG/7.5 ML UDC GT SCH ×2 (09:06→16:44)
[2021-04-29] MEDS: BACLOFEN (10 MG) 10 MG TABLET GT SCH (09:06)
[2021-04-29] MEDS: PANTOPRAZOLE 40 MG/PACK PACK GT SCH (09:07)
[2021-04-29] MEDS: PROSOURCE / PROSTAT (PYXIS) 30 ML UDC GT SCH ×4 (09:07→20:45)
[2021-04-29] MEDS: MULTIVIT W/MINERALS 1 TAB TABLET GT SCH (09:07)
[2021-04-29] MEDS: LISINOPRIL (5MG) 5 MG TABLET GT SCH (09:07)
[2021-04-29] MEDS: HYDROCODONE/APAP 5/325MG TABLET GT SCH (09:12)
[2021-04-29] MEDS: [UNRECOGNIZED DRUG - OTHER] GT SCH (09:12)
[2021-04-29] MEDS: TIMOLOL 0.5% SOLN OPHTH 5 ML BOTTLE EACHEYE SCH ×2 (09:14→16:44)
[2021-04-29] MEDS: PYRIDOXINE HCL 50 MG TABLET GT SCH (09:14)
[2021-04-29 12:38] VITALS: BP 138/55
[2021-04-29] MEDS: JEVITY 1.2 CAL 1,000 ML BOTTLE GT PRN (13:28)
--- NOTE | 2021-04-29 18:50 | NUR ---
Dr. Santillan notified of dietary recommendations to change GT feeding from Jevity 1.2 at 55cc/hr to Nepro at 45cc/hr to increase caloric intake. Patient is currently getting Arcadio protein supplement. Patient's albumin level 1.1. Resident's sister Shae informed of new order. She said she has not spoken to any of the doctors, she knows they are busy and giving them more time.
[2021-04-29 19:12] VITALS: BP 118/73
[2021-04-29] MEDS ORDERED: IPRATROPIUM NEB FS 0.5 MG/2.5 ML AMPUL.NEB NEB PRN (20:00)
[2021-04-29] MEDS: ACETAMINOPHEN 650 MG/20 ML UDC- SA PATIENTS-PAIN ONLY GT PRN (20:30)
[2021-04-29] MEDS: ATORVASTATIN 40 MG TABLET GT SCH (21:06)
[2021-04-29] MEDS: NEPRO 1,000 ML BOTTLE GT PRN (21:06)
[2021-04-29] MEDS: LATANOPROST EYE DROP 0.005% 2.5 ML BOTTLE EACHEYE SCH (21:06)
[2021-04-29 23:51] VITALS: BP 105/65
[2021-04-30] MEDS: ALBUTEROL FS 2.5 MG/0.5 ML VIAL.NEB NEB SCH ×4 (02:04→20:29)
[2021-04-30] MEDS: IPRATROPIUM NEB FS 0.5 MG/2.5 ML AMPUL.NEB NEB SCH ×4 (02:04→20:29)
[2021-04-30] MEDS: POLYVINYL ALCOHOL 15 ML BOTTLE OP SCH ×4 (05:23→23:35)
[2021-04-30 07:45] VITALS: BP 106/64
[2021-04-30] MEDS: HYDROGEN PEROXIDE 480 ML BOTTLE TP SCH ×2 (08:07→20:29)
[2021-04-30] MEDS: LISINOPRIL (5MG) 5 MG TABLET GT SCH (09:00)
[2021-04-30] MEDS: VITAMINS A AND D 56.7 GM TUBE TP SCH ×3 (09:00→21:39)
[2021-04-30] MEDS: DAKINS QUARTER STRENGTH (0.125%) 480 ML BOTTLE TOP SCH (09:00)
[2021-04-30] MEDS: POVIDONE-IODINE OINT 28.4 GM TUBE TP SCH ×4 (09:00)
[2021-04-30] MEDS: Z GUARD REMEDY 4 OZ OINT TP SCH ×2 (09:00→21:39)
[2021-04-30] MEDS: BACI/NEOM/POLY B OINT PKT 1 UDPKT PACKET TP SCH (09:00)
[2021-04-30] MEDS: BICALUTAMIDE 50 MG TABLET GT SCH (09:38)
[2021-04-30] MEDS: BACLOFEN (10 MG) 10 MG TABLET GT SCH (09:38)
[2021-04-30] MEDS: HYDROCODONE/APAP 5/325MG TABLET GT SCH (09:38)
[2021-04-30] MEDS: TIMOLOL 0.5% SOLN OPHTH 5 ML BOTTLE EACHEYE SCH ×2 (09:38→17:03)
[2021-04-30] MEDS: FOLIC ACID 1 MG TABLET GT SCH (09:38)
[2021-04-30] MEDS: DOCUSATE SODIUM LIQ 100 MG/10 ML UDC GT SCH ×2 (09:38→17:03)
[2021-04-30] MEDS: LORATADINE 10 MG TABLET GT SCH (09:38)
[2021-04-30] MEDS: FERROUS SULFATE - FOR SA ONLY 330 MG/7.5 ML UDC GT SCH ×2 (09:38→17:03)
[2021-04-30] MEDS: ARGININE/GLUTAMINE/CALCIUM BMB 1 EACH POWD.PACK GT SCH ×2 (09:38→17:03)
[2021-04-30] MEDS: PANTOPRAZOLE 40 MG/PACK PACK GT SCH (09:39)
[2021-04-30] MEDS: PROSOURCE / PROSTAT (PYXIS) 30 ML UDC GT SCH ×4 (09:39→21:39)
[2021-04-30] MEDS: MULTIVIT W/MINERALS 1 TAB TABLET GT SCH (09:39)
[2021-04-30] MEDS: PYRIDOXINE HCL 50 MG TABLET GT SCH (09:39)
[2021-04-30] MEDS ORDERED: SILVER NITRATE APPLICATOR 1 EA BOX TP STA (14:07)
--- NOTE | 2021-04-30 14:11 | NUR ---
INTERDISCIPLINARY PLAN OF CARE CONFERENCE took place today. The patients Maciej CHARLTON [phone] Sullivan and Interdisciplinary team discussed the plan of care in detail. Current orders as well as treatments and medications were reviewed. Addendum: 04/30/21 at 1416 by DAISHA MARTÍNEZ Per pharmacy recommendation, MELI IVORY on Monday
[2021-04-30] MEDS ORDERED: LIDOCAINE 1%-EPI 1:100,000 50 ML VIAL IJ ONE (14:30)
--- NOTE | 2021-04-30 16:00 | NUR ---
BRITTNI Clark debrided patient's R hip, patient tolerated procedure with minimal bleeding during debridement. BRITTNI packed wound with moistened 1/4 strength Daikin's solution. Kept patient in a comfortable position.
[2021-04-30] MEDS: ACETAMINOPHEN 650 MG/20 ML UDC- SA PATIENTS-PAIN ONLY GT PRN (17:29)
[2021-04-30 19:58] VITALS: BP 108/56
[2021-04-30] MEDS: LATANOPROST EYE DROP 0.005% 2.5 ML BOTTLE EACHEYE SCH (21:39)
[2021-04-30] MEDS: ATORVASTATIN 40 MG TABLET GT SCH (21:39)
[2021-05-01 01:21] VITALS: BP 128/79
[2021-05-01] MEDS: IPRATROPIUM NEB FS 0.5 MG/2.5 ML AMPUL.NEB NEB SCH ×4 (02:10→19:25)
[2021-05-01] MEDS: ALBUTEROL FS 2.5 MG/0.5 ML VIAL.NEB NEB SCH ×4 (02:10→19:25)
[2021-05-01] MEDS: POLYVINYL ALCOHOL 15 ML BOTTLE OP SCH ×4 (05:25→18:40)
[2021-05-01] MEDS: NEPRO 1,000 ML BOTTLE GT PRN (07:15)
[2021-05-01 08:00] VITALS: BP 119/61
[2021-05-01] MEDS: HYDROGEN PEROXIDE 480 ML BOTTLE TP SCH ×2 (08:51→19:25)
[2021-05-01] MEDS: TIMOLOL 0.5% SOLN OPHTH 5 ML BOTTLE EACHEYE SCH ×2 (09:01→17:10)
[2021-05-01] MEDS: PANTOPRAZOLE 40 MG/PACK PACK GT SCH (09:02)
[2021-05-01] MEDS: BICALUTAMIDE 50 MG TABLET GT SCH (09:02)
[2021-05-01] MEDS: [UNRECOGNIZED DRUG - OTHER] GT SCH (09:02)
[2021-05-01] MEDS: DOCUSATE SODIUM LIQ 100 MG/10 ML UDC GT SCH ×2 (09:02→17:10)
[2021-05-01] MEDS: PYRIDOXINE HCL 50 MG TABLET GT SCH (09:02)
[2021-05-01] MEDS: LISINOPRIL (5MG) 5 MG TABLET GT SCH (09:02)
[2021-05-01] MEDS: MULTIVIT W/MINERALS 1 TAB TABLET GT SCH (09:02)
[2021-05-01] MEDS: BACLOFEN (10 MG) 10 MG TABLET GT SCH (09:02)
[2021-05-01] MEDS: FOLIC ACID 1 MG TABLET GT SCH (09:02)
[2021-05-01] MEDS: ARGININE/GLUTAMINE/CALCIUM BMB 1 EACH POWD.PACK GT SCH ×2 (09:02→17:11)
[2021-05-01] MEDS: FERROUS SULFATE - FOR SA ONLY 330 MG/7.5 ML UDC GT SCH ×2 (09:02→17:10)
[2021-05-01] MEDS: LORATADINE 10 MG TABLET GT SCH (09:02)
[2021-05-01] MEDS: PROSOURCE / PROSTAT (PYXIS) 30 ML UDC GT SCH ×4 (09:02→21:22)
[2021-05-01] MEDS: POVIDONE-IODINE OINT 28.4 GM TUBE TP SCH ×4 (09:35)
[2021-05-01] MEDS: Z GUARD REMEDY 4 OZ OINT TP SCH ×2 (09:35→21:22)
[2021-05-01] MEDS: VITAMINS A AND D 56.7 GM TUBE TP SCH ×3 (09:35→21:22)
[2021-05-01] MEDS: HYDROCODONE/APAP 5/325MG TABLET GT SCH (09:35)
[2021-05-01] MEDS: DAKINS QUARTER STRENGTH (0.125%) 480 ML BOTTLE TOP SCH (09:35)
[2021-05-01] MEDS: BACI/NEOM/POLY B OINT PKT 1 UDPKT PACKET TP SCH (09:35)
[2021-05-01 16:37] VITALS: BP 103/66
[2021-05-01 19:58] VITALS: BP 115/71
[2021-05-01] MEDS: LATANOPROST EYE DROP 0.005% 2.5 ML BOTTLE EACHEYE SCH (21:23)
[2021-05-01] MEDS: ATORVASTATIN 40 MG TABLET GT SCH (21:23)
[2021-05-02] MEDS: POLYVINYL ALCOHOL 15 ML BOTTLE OP SCH ×4 (00:27→18:35)
[2021-05-02] MEDS: ALBUTEROL FS 2.5 MG/0.5 ML VIAL.NEB NEB SCH ×4 (01:46→19:51)
[2021-05-02] MEDS: IPRATROPIUM NEB FS 0.5 MG/2.5 ML AMPUL.NEB NEB SCH ×4 (01:46→19:51)
--- NOTE | 2021-05-02 04:23 | NUR ---
PATIENT RECEIVED ON TRACH TO VENT WITH SETTINGS OF AC 14, 450 Vt, 40%, +5, TOLERATING WITH NO DISTRESS/SOB NOTED. SUCTIONED FOR MINIMAL, THICK, YELLOW SECRETIONS. GIVEN IN-LINE TREATMENTS WITH NO ADVERSE REACTIONS. AMBU BAG AT BEDSIDE. VENT AND PULSE OXIMETER ALARMS AUDIBLE AND VISIBLE. TRACH CARE DONE. Addendum: 05/02/21 at 4453 by JAKI PASCAL RT Amended: Links added.
[2021-05-02 07:29] VITALS: BP 115/59
[2021-05-02] MEDS: HYDROGEN PEROXIDE 480 ML BOTTLE TP SCH ×2 (08:14→20:47)
[2021-05-02] MEDS: Z GUARD REMEDY 4 OZ OINT TP SCH ×2 (09:00→20:25)
[2021-05-02] MEDS: POVIDONE-IODINE OINT 28.4 GM TUBE TP SCH ×2 (09:00)
[2021-05-02] MEDS: BACI/NEOM/POLY B OINT PKT 1 UDPKT PACKET TP SCH (09:00)
[2021-05-02] MEDS: DAKINS QUARTER STRENGTH (0.125%) 480 ML BOTTLE TOP SCH (09:00)
[2021-05-02] MEDS: VITAMINS A AND D 56.7 GM TUBE TP SCH ×3 (09:00→20:25)
[2021-05-02] MEDS: FOLIC ACID 1 MG TABLET GT SCH (09:08)
[2021-05-02] MEDS: BACLOFEN (10 MG) 10 MG TABLET GT SCH (09:08)
[2021-05-02] MEDS: BICALUTAMIDE 50 MG TABLET GT SCH (09:08)
[2021-05-02] MEDS: FERROUS SULFATE - FOR SA ONLY 330 MG/7.5 ML UDC GT SCH ×2 (09:08→16:04)
[2021-05-02] MEDS: LORATADINE 10 MG TABLET GT SCH (09:08)
[2021-05-02] MEDS: ARGININE/GLUTAMINE/CALCIUM BMB 1 EACH POWD.PACK GT SCH ×2 (09:08→16:04)
[2021-05-02] MEDS: DOCUSATE SODIUM LIQ 100 MG/10 ML UDC GT SCH ×2 (09:08→16:04)
[2021-05-02] MEDS: TIMOLOL 0.5% SOLN OPHTH 5 ML BOTTLE EACHEYE SCH ×2 (09:08→16:04)
[2021-05-02] MEDS: HYDROCODONE/APAP 5/325MG TABLET GT SCH (09:09)
[2021-05-02] MEDS: LISINOPRIL (5MG) 5 MG TABLET GT SCH (09:10)
[2021-05-02] MEDS: PANTOPRAZOLE 40 MG/PACK PACK GT SCH (09:10)
[2021-05-02] MEDS: PYRIDOXINE HCL 50 MG TABLET GT SCH (09:10)
[2021-05-02] MEDS: MULTIVIT W/MINERALS 1 TAB TABLET GT SCH (09:10)
[2021-05-02] MEDS: PROSOURCE / PROSTAT (PYXIS) 30 ML UDC GT SCH ×4 (09:10→20:25)
--- NOTE | 2021-05-02 09:35 | NUR ---
Seen and examined by Dr. Santillan, informed about continues hematuria. He said he will speak with pt's sister to discuss patients condition and the possible procedure to be done.
[2021-05-02 12:36] VITALS: BP 106/61
[2021-05-02] MEDS: NEPRO 1,000 ML BOTTLE GT PRN (16:01)
[2021-05-02 19:55] VITALS: BP 128/75
[2021-05-02] MEDS: LATANOPROST EYE DROP 0.005% 2.5 ML BOTTLE EACHEYE SCH (21:30)
[2021-05-02] MEDS: ATORVASTATIN 40 MG TABLET GT SCH (21:30)
[2021-05-03] MEDS: HYDROCODONE/APAP 5/325MG TABLET PO PRN (00:31)
[2021-05-03] MEDS: IPRATROPIUM NEB FS 0.5 MG/2.5 ML AMPUL.NEB NEB SCH ×4 (00:35→19:59)
[2021-05-03] MEDS: ALBUTEROL FS 2.5 MG/0.5 ML VIAL.NEB NEB SCH ×4 (00:35→19:59)
[2021-05-03] MEDS: POLYVINYL ALCOHOL 15 ML BOTTLE OP SCH ×5 (00:50→23:05)
--- NOTE | 2021-05-03 02:00 | NUR ---
RT HT70 VENT WAS NOT FUNCTIONING CORRECTLY ACCORDING TO THE DISPLAY, CHANGED VENT A PRECAUTION. PT WAS PLACED ON LTV VENT WITH SAME ORDERED SETTINGS. NO SIGNS OF SOB OR RESPIRATORY DISTRESS NOTED AFTER VENT CHANGE. VENT PLUGGED INTO RED OUTLET AND SECURED TO O2 WALL SOURCE. ORACLE SPECIALISTROSALINDA KENNEY INFORMED.
[2021-05-03 02:09] VITALS: BP 133/84
[2021-05-03 08:00] VITALS: BP 107/53
[2021-05-03 08:14] LABS: BASOPHILS % (AUTO) 0.5 % (0.0-2.0); EOSINOPHILS % (AUTO) 0.3 % (0.0-6.0); HEMATOCRIT 27 % (39-51); HEMOGLOBIN 8.4 g/dL (13.5-17.5); LYMPHOCYTES # (AUTO) 0.5 K/uL (0.8-4.8); LYMPHOCYTES % (AUTO) 9.9 % (20.0-44.0); MEAN CORPUSCULAR HGB CONC 32 g/dl (31.0-36.0); MEAN CORPUSCULAR VOLUME 92 fL (80-96); MONOCYTES # (AUTO) 0.4 K/uL (0.1-1.30); MONOCYTES % (AUTO) 7.9 % (2.0-12.0); NEUTROPHILS # (AUTO) 4.2 K/uL (1.8-8.9); NEUTROPHILS % (AUTO) 81.4 % (43.0-81.0); PLATELET COUNT (AUTO) 289 K/uL (150-450); RED BLOOD CELL COUNT(AUTO) 2.88 MIL/uL (4.5-6.0); WHITE BLOOD COUNT (AUTO) 5.2 K/uL (4.3-11.0)
[2021-05-03] MEDS: LISINOPRIL (5MG) 5 MG TABLET GT SCH (09:00)
[2021-05-03] MEDS: VITAMINS A AND D 56.7 GM TUBE TP SCH ×3 (09:00→21:08)
[2021-05-03] MEDS: POVIDONE-IODINE OINT 28.4 GM TUBE TP SCH ×2 (09:00)
[2021-05-03] MEDS: DAKINS QUARTER STRENGTH (0.125%) 480 ML BOTTLE TOP SCH (09:00)
[2021-05-03] MEDS: BACI/NEOM/POLY B OINT PKT 1 UDPKT PACKET TP SCH (09:00)
[2021-05-03] MEDS: Z GUARD REMEDY 4 OZ OINT TP SCH ×2 (09:00→21:08)
[2021-05-03] MEDS: HYDROGEN PEROXIDE 480 ML BOTTLE TP SCH ×2 (09:25→19:59)
[2021-05-03 09:30] LABS: CALCIUM, SERUM 8.8 mg/dL (8.5-10.1); CREATININE 0.7 mg/dL (0.6-1.3); POTASSIUM 3.9 mmol/L (3.5-5.1)
[2021-05-03] MEDS: DOCUSATE SODIUM LIQ 100 MG/10 ML UDC GT SCH ×2 (09:37→16:55)
[2021-05-03] MEDS: BICALUTAMIDE 50 MG TABLET GT SCH (09:37)
[2021-05-03] MEDS: TIMOLOL 0.5% SOLN OPHTH 5 ML BOTTLE EACHEYE SCH ×2 (09:37→16:55)
[2021-05-03] MEDS: LORATADINE 10 MG TABLET GT SCH (09:37)
[2021-05-03] MEDS: FOLIC ACID 1 MG TABLET GT SCH (09:38)
[2021-05-03] MEDS: BACLOFEN (10 MG) 10 MG TABLET GT SCH (09:38)
[2021-05-03] MEDS: FERROUS SULFATE - FOR SA ONLY 330 MG/7.5 ML UDC GT SCH ×2 (09:38→16:55)
[2021-05-03] MEDS: ARGININE/GLUTAMINE/CALCIUM BMB 1 EACH POWD.PACK GT SCH ×2 (09:38→16:55)
[2021-05-03] MEDS: [UNRECOGNIZED DRUG - OTHER] GT SCH (09:38)
[2021-05-03] MEDS: HYDROCODONE/APAP 5/325MG TABLET GT SCH (09:39)
[2021-05-03] MEDS: PANTOPRAZOLE 40 MG/PACK PACK GT SCH (09:40)
[2021-05-03] MEDS: PYRIDOXINE HCL 50 MG TABLET GT SCH (09:40)
[2021-05-03] MEDS: PROSOURCE / PROSTAT (PYXIS) 30 ML UDC GT SCH ×4 (09:40→21:08)
[2021-05-03] MEDS: MULTIVIT W/MINERALS 1 TAB TABLET GT SCH (09:40)
[2021-05-03 12:00] VITALS: BP 110/71
--- NOTE | 2021-05-03 18:19 | NUR ---
Seen by MEDICAL LAB TECHNICIAN Jennifer Porras. Informed her that pt has increased secretions and secretions appear frothy. She ordered CXR in AM. Notified pt's sister.
[2021-05-03 19:48] VITALS: BP 113/66
[2021-05-03] MEDS: ATORVASTATIN 40 MG TABLET GT SCH (21:08)
[2021-05-03] MEDS: LATANOPROST EYE DROP 0.005% 2.5 ML BOTTLE EACHEYE SCH (21:08)
[2021-05-03] MEDS: ACETAMINOPHEN 650 MG/20 ML UDC- SA PATIENTS-PAIN ONLY GT PRN (21:08)
[2021-05-04 01:09] VITALS: BP 124/71
[2021-05-04] MEDS: ALBUTEROL FS 2.5 MG/0.5 ML VIAL.NEB NEB SCH ×4 (01:50→19:53)
[2021-05-04] MEDS: IPRATROPIUM NEB FS 0.5 MG/2.5 ML AMPUL.NEB NEB SCH ×4 (01:50→19:53)
[2021-05-04] MEDS: POLYVINYL ALCOHOL 15 ML BOTTLE OP SCH ×3 (05:30→17:14)
[2021-05-04 07:42] VITALS: BP 102/60
[2021-05-04] MEDS: LISINOPRIL (5MG) 5 MG TABLET GT SCH (09:00)
[2021-05-04] MEDS: BACLOFEN (10 MG) 10 MG TABLET GT SCH (09:29)
[2021-05-04] MEDS: FERROUS SULFATE - FOR SA ONLY 330 MG/7.5 ML UDC GT SCH ×2 (09:29→17:14)
[2021-05-04] MEDS: LORATADINE 10 MG TABLET GT SCH (09:29)
[2021-05-04] MEDS: BICALUTAMIDE 50 MG TABLET GT SCH (09:29)
[2021-05-04] MEDS: TIMOLOL 0.5% SOLN OPHTH 5 ML BOTTLE EACHEYE SCH ×2 (09:29→17:14)
[2021-05-04] MEDS: FOLIC ACID 1 MG TABLET GT SCH (09:29)
[2021-05-04] MEDS: DOCUSATE SODIUM LIQ 100 MG/10 ML UDC GT SCH ×2 (09:29→17:14)
[2021-05-04] MEDS: ARGININE/GLUTAMINE/CALCIUM BMB 1 EACH POWD.PACK GT SCH ×2 (09:29→17:14)
[2021-05-04] MEDS: HYDROCODONE/APAP 5/325MG TABLET GT SCH (09:30)
[2021-05-04] MEDS: PROSOURCE / PROSTAT (PYXIS) 30 ML UDC GT SCH ×4 (09:31→20:34)
[2021-05-04] MEDS: POVIDONE-IODINE OINT 28.4 GM TUBE TP SCH ×2 (09:31)
[2021-05-04] MEDS: PYRIDOXINE HCL 50 MG TABLET GT SCH (09:31)
[2021-05-04] MEDS: DAKINS QUARTER STRENGTH (0.125%) 480 ML BOTTLE TOP SCH (09:31)
[2021-05-04] MEDS: MULTIVIT W/MINERALS 1 TAB TABLET GT SCH (09:31)
[2021-05-04] MEDS: BACI/NEOM/POLY B OINT PKT 1 UDPKT PACKET TP SCH (09:31)
[2021-05-04] MEDS: PANTOPRAZOLE 40 MG/PACK PACK GT SCH (09:31)
[2021-05-04] MEDS: Z GUARD REMEDY 4 OZ OINT TP SCH ×2 (09:32→20:34)
[2021-05-04] MEDS: VITAMINS A AND D 56.7 GM TUBE TP SCH ×3 (09:32→20:34)
[2021-05-04] MEDS: HYDROGEN PEROXIDE 480 ML BOTTLE TP SCH ×2 (09:49→19:53)
[2021-05-04] MEDS ORDERED: SILVER NITRATE APPLICATOR 1 EA BOX TP STA (11:37)
[2021-05-04] MEDS ORDERED: LIDOCAINE 1%-EPI 1:100,000 50 ML VIAL IJ ONE (12:00)
[2021-05-04 13:26] VITALS: BP 118/69
[2021-05-04 20:13] VITALS: BP 106/69
[2021-05-04] MEDS: ATORVASTATIN 40 MG TABLET GT SCH (21:08)
[2021-05-04] MEDS: LATANOPROST EYE DROP 0.005% 2.5 ML BOTTLE EACHEYE SCH (21:08)
[2021-05-05] MEDS: POLYVINYL ALCOHOL 15 ML BOTTLE OP SCH ×4 (00:23→17:21)
[2021-05-05] MEDS: ALBUTEROL FS 2.5 MG/0.5 ML VIAL.NEB NEB SCH ×4 (01:40→19:42)
[2021-05-05] MEDS: IPRATROPIUM NEB FS 0.5 MG/2.5 ML AMPUL.NEB NEB SCH ×4 (01:40→19:42)
[2021-05-05 02:14] VITALS: BP 116/66
[2021-05-05] MEDS: NEPRO 1,000 ML BOTTLE GT PRN (03:51)
[2021-05-05 07:33] VITALS: BP 108/68
[2021-05-05] MEDS: TIMOLOL 0.5% SOLN OPHTH 5 ML BOTTLE EACHEYE SCH ×2 (08:41→17:21)
[2021-05-05] MEDS: LORATADINE 10 MG TABLET GT SCH (08:41)
[2021-05-05] MEDS: BICALUTAMIDE 50 MG TABLET GT SCH (08:41)
[2021-05-05] MEDS: HYDROGEN PEROXIDE 480 ML BOTTLE TP SCH ×2 (08:42→19:42)
[2021-05-05] MEDS: BACLOFEN (10 MG) 10 MG TABLET GT SCH (08:45)
[2021-05-05] MEDS: FOLIC ACID 1 MG TABLET GT SCH (08:45)
[2021-05-05] MEDS: DOCUSATE SODIUM LIQ 100 MG/10 ML UDC GT SCH ×2 (08:45→17:21)
[2021-05-05] MEDS: ARGININE/GLUTAMINE/CALCIUM BMB 1 EACH POWD.PACK GT SCH ×2 (08:45→17:21)
[2021-05-05] MEDS: [UNRECOGNIZED DRUG - OTHER] GT SCH (08:45)
[2021-05-05] MEDS: FERROUS SULFATE - FOR SA ONLY 330 MG/7.5 ML UDC GT SCH ×2 (08:45→17:21)
[2021-05-05] MEDS: LISINOPRIL (5MG) 5 MG TABLET GT SCH (08:46)
[2021-05-05] MEDS: HYDROCODONE/APAP 5/325MG TABLET GT SCH (08:46)
[2021-05-05] MEDS: PROSOURCE / PROSTAT (PYXIS) 30 ML UDC GT SCH ×4 (08:47→21:46)
[2021-05-05] MEDS: PYRIDOXINE HCL 50 MG TABLET GT SCH (08:47)
[2021-05-05] MEDS: DAKINS QUARTER STRENGTH (0.125%) 480 ML BOTTLE TOP SCH (08:47)
[2021-05-05] MEDS: BACI/NEOM/POLY B OINT PKT 1 UDPKT PACKET TP SCH (08:47)
[2021-05-05] MEDS: PANTOPRAZOLE 40 MG/PACK PACK GT SCH (08:47)
[2021-05-05] MEDS: POVIDONE-IODINE OINT 28.4 GM TUBE TP SCH ×2 (08:47)
[2021-05-05] MEDS: MULTIVIT W/MINERALS 1 TAB TABLET GT SCH (08:47)
[2021-05-05] MEDS: VITAMINS A AND D 56.7 GM TUBE TP SCH ×3 (08:48→21:46)
[2021-05-05] MEDS: Z GUARD REMEDY 4 OZ OINT TP SCH ×2 (08:48→21:46)
--- NOTE | 2021-05-05 11:41 | NUR ---
MAURICIO emailed updated Influenza Vaccine information statement to pt.'s Maciej CHARLTON and sister, Shae Pires
[2021-05-05 13:49] VITALS: BP 103/86
[2021-05-05] MEDS ORDERED: LIDOCAINE 1%-EPI 1:100,000 20 ML VIAL TP ONE (15:00)
[2021-05-05] MEDS ORDERED: SILVER NITRATE APPLICATOR 1 EA BOX TP SCH (15:00)
--- NOTE | 2021-05-05 16:00 | NUR ---
Asked Dr. Sullivan if patient can receive pneumococcal vaccine since he is no longer on antibiotic, per MD patient can receive pneumococcal vaccine. Obtained consent for pneumo vaccine administration from patient's sister Shae. Education provided.
[2021-05-05] MEDS ORDERED: PNEUMOCOCCAL 23-VAL P-SAC VAC 0.5 ML VIAL IM ONE (16:30)
--- NOTE | 2021-05-05 16:30 | NUR ---
Pneumococcal vaccine administered in the L deltoid, no redness or swelling noted in the injection site, will monitor for side effects.
[2021-05-05 19:44] VITALS: BP 97/54
[2021-05-05] MEDS: ACETAMINOPHEN 650 MG/20 ML UDC- SA PATIENTS-PAIN ONLY GT PRN (20:31)
--- NOTE | 2021-05-05 20:45 | NUR ---
Notifed ANGELLA Glaser, resident with low grade temperature 100.6, patient s/p pneumococcal vaccine, VS 97/54, 105, 14, 96%. Gave an order for AM labs, CXR and BC and urine culture. Orders carried out.
[2021-05-05] MEDS: LATANOPROST EYE DROP 0.005% 2.5 ML BOTTLE EACHEYE SCH (21:46)
[2021-05-05] MEDS: ATORVASTATIN 40 MG TABLET GT SCH (21:46)
[2021-05-06] MEDS: ALBUTEROL FS 2.5 MG/0.5 ML VIAL.NEB NEB SCH ×4 (01:59→19:37)
[2021-05-06] MEDS: IPRATROPIUM NEB FS 0.5 MG/2.5 ML AMPUL.NEB NEB SCH ×4 (01:59→19:37)
[2021-05-06 02:04] VITALS: BP 106/67
[2021-05-06] MEDS: POLYVINYL ALCOHOL 15 ML BOTTLE OP SCH ×5 (05:44→23:41)
--- NOTE | 2021-05-06 06:30 | NUR ---
Received a call from pt's sister Shae. Notified her of patient's low grade fever yesterday and all new orders. Informed sister that current temp 98.5. No SOB, no distress noted. Pt kept comfortable in bed.
--- NOTE | 2021-05-06 07:23 | NUR ---
S/P Pneumococcal vaccine on L deltoid, No adverse reaction noted. Temp of 98.5 at this time. No swelling noted on site.
[2021-05-06] MEDS: HYDROGEN PEROXIDE 480 ML BOTTLE TP SCH ×2 (07:46→21:00)
[2021-05-06 07:59] VITALS: BP 133/98
[2021-05-06 08:18] LABS: BASOPHILS % (AUTO) 0.4 % (0.0-2.0); EOSINOPHILS % (AUTO) 3.9 % (0.0-6.0); HEMATOCRIT 25 % (39-51); HEMOGLOBIN 7.8 g/dL (13.5-17.5); LYMPHOCYTES # (AUTO) 0.7 K/uL (0.8-4.8); LYMPHOCYTES % (AUTO) 9.5 % (20.0-44.0); MEAN CORPUSCULAR HGB CONC 32 g/dl (31.0-36.0); MEAN CORPUSCULAR VOLUME 93 fL (80-96); MONOCYTES # (AUTO) 0.5 K/uL (0.1-1.30); MONOCYTES % (AUTO) 7.4 % (2.0-12.0); NEUTROPHILS # (AUTO) 5.5 K/uL (1.8-8.9); NEUTROPHILS % (AUTO) 78.8 % (43.0-81.0); PLATELET COUNT (AUTO) 288 K/uL (150-450); RED BLOOD CELL COUNT(AUTO) 2.67 MIL/uL (4.5-6.0)
[2021-05-06 08:49] LABS: CALCIUM, SERUM 9.5 mg/dL (8.5-10.1); CREATININE 0.7 mg/dL (0.6-1.3)
[2021-05-06] MEDS ORDERED: NEOMY SULF/BACITRAC ZN/POLY 15 GM TUBE TP SCH (09:00)
[2021-05-06] MEDS: FERROUS SULFATE - FOR SA ONLY 330 MG/7.5 ML UDC GT SCH ×2 (09:17→16:42)
[2021-05-06] MEDS: BICALUTAMIDE 50 MG TABLET GT SCH (09:17)
[2021-05-06] MEDS: ARGININE/GLUTAMINE/CALCIUM BMB 1 EACH POWD.PACK GT SCH ×2 (09:17→16:42)
[2021-05-06] MEDS: FOLIC ACID 1 MG TABLET GT SCH (09:17)
[2021-05-06] MEDS: LORATADINE 10 MG TABLET GT SCH (09:17)
[2021-05-06] MEDS: BACLOFEN (10 MG) 10 MG TABLET GT SCH (09:17)
[2021-05-06] MEDS: DOCUSATE SODIUM LIQ 100 MG/10 ML UDC GT SCH ×2 (09:17→16:42)
[2021-05-06] MEDS: TIMOLOL 0.5% SOLN OPHTH 5 ML BOTTLE EACHEYE SCH ×2 (09:17→16:42)
[2021-05-06] MEDS: LISINOPRIL (5MG) 5 MG TABLET GT SCH (09:18)
[2021-05-06] MEDS: MULTIVIT W/MINERALS 1 TAB TABLET GT SCH (09:18)
[2021-05-06] MEDS: PROSOURCE / PROSTAT (PYXIS) 30 ML UDC GT SCH ×4 (09:18→21:20)
[2021-05-06] MEDS: PANTOPRAZOLE 40 MG/PACK PACK GT SCH (09:18)
[2021-05-06] MEDS: PYRIDOXINE HCL 50 MG TABLET GT SCH (09:18)
[2021-05-06] MEDS: HYDROCODONE/APAP 5/325MG TABLET GT SCH (12:40)
[2021-05-06] MEDS: DAKINS QUARTER STRENGTH (0.125%) 480 ML BOTTLE TOP SCH (13:00)
[2021-05-06] MEDS: BACI/NEOM/POLY B OINT PKT 1 UDPKT PACKET TP SCH (13:00)
[2021-05-06] MEDS: NEOMY SULF/BACITRAC ZN/POLY 15 GM TUBE TP SCH ×2 (13:00→21:21)
[2021-05-06] MEDS: VITAMINS A AND D 56.7 GM TUBE TP SCH ×3 (13:00→21:21)
[2021-05-06] MEDS: POVIDONE-IODINE OINT 28.4 GM TUBE TP SCH ×2 (13:00)
[2021-05-06] MEDS: Z GUARD REMEDY 4 OZ OINT TP SCH ×2 (13:00→21:21)
--- NOTE | 2021-05-06 17:17 | NUR ---
Pt received pneumonia vaccine yesterday on left deltoid. No adverse effects noted.
[2021-05-06 19:40] VITALS: BP 128/75
--- NOTE | 2021-05-06 21:15 | NUR ---
Received order from Xenia Zazueta NP for Vancomycin IV pharmacist to dose for blood stream infection. Ordered fax to [facility] for dosing. Awaiting for call back.
[2021-05-06] MEDS: ATORVASTATIN 40 MG TABLET GT SCH (21:21)
[2021-05-06] MEDS: LATANOPROST EYE DROP 0.005% 2.5 ML BOTTLE EACHEYE SCH (21:21)
--- NOTE | 2021-05-06 22:10 | NUR ---
Spoke to Irma from [facility] ,according to her they can't verify medications and dose for Sub acute. They never do it for us. Will verify with [facility] in house pharmacy who will verify medications after 9PM. Will notify [employer] [facility]era medications will start in AM. Patient stable condition afebrile,no distress noted.
[2021-05-07 00:20] VITALS: BP 122/60
[2021-05-07] MEDS: ALBUTEROL FS 2.5 MG/0.5 ML VIAL.NEB NEB SCH ×4 (01:23→19:30)
[2021-05-07] MEDS: IPRATROPIUM NEB FS 0.5 MG/2.5 ML AMPUL.NEB NEB SCH ×4 (01:23→19:30)
[2021-05-07] MEDS: POLYVINYL ALCOHOL 15 ML BOTTLE OP SCH ×3 (05:29→18:31)
--- NOTE | 2021-05-07 06:56 | NUR ---
S/p pneumo vaccine administration no adverse reaction noted. Still with hematuria.
--- NOTE | 2021-05-07 07:45 | NUR ---
Spoke with [facility] pharmacist regarding Vancomycin dosing.
[2021-05-07 07:51] VITALS: BP 107/65
[2021-05-07] MEDS: VANCOMYCIN 1 GM in IV D5W 250 ML IV SCH ×2 (08:36→20:00)
[2021-05-07] MEDS: HYDROGEN PEROXIDE 480 ML BOTTLE TP SCH ×2 (09:00→21:07)
[2021-05-07] MEDS: LISINOPRIL (5MG) 5 MG TABLET GT SCH (09:00)
[2021-05-07] MEDS: DOCUSATE SODIUM LIQ 100 MG/10 ML UDC GT SCH ×2 (09:51→16:53)
[2021-05-07] MEDS: BICALUTAMIDE 50 MG TABLET GT SCH (09:51)
[2021-05-07] MEDS: FOLIC ACID 1 MG TABLET GT SCH (09:51)
[2021-05-07] MEDS: FERROUS SULFATE - FOR SA ONLY 330 MG/7.5 ML UDC GT SCH ×2 (09:51→16:53)
[2021-05-07] MEDS: TIMOLOL 0.5% SOLN OPHTH 5 ML BOTTLE EACHEYE SCH ×2 (09:52→16:53)
[2021-05-07] MEDS: PROSOURCE / PROSTAT (PYXIS) 30 ML UDC GT SCH ×4 (09:52→21:43)
[2021-05-07] MEDS: HYDROCODONE/APAP 5/325MG TABLET GT SCH (09:52)
[2021-05-07] MEDS: ARGININE/GLUTAMINE/CALCIUM BMB 1 EACH POWD.PACK GT SCH ×2 (09:52→16:53)
[2021-05-07] MEDS: BACLOFEN (10 MG) 10 MG TABLET GT SCH (09:52)
[2021-05-07] MEDS: LORATADINE 10 MG TABLET GT SCH (09:52)
[2021-05-07] MEDS: [UNRECOGNIZED DRUG - OTHER] GT SCH (09:52)
[2021-05-07] MEDS: PANTOPRAZOLE 40 MG/PACK PACK GT SCH (09:53)
[2021-05-07] MEDS: PYRIDOXINE HCL 50 MG TABLET GT SCH (09:53)
[2021-05-07] MEDS: MULTIVIT W/MINERALS 1 TAB TABLET GT SCH (09:53)
--- NOTE | 2021-05-07 10:45 | NUR ---
Left a message to Dr. Santillan regarding BMP result yesterday with K+ 3.0, awaiting for orders.
[2021-05-07] MEDS: Z GUARD REMEDY 4 OZ OINT TP SCH ×2 (11:30→21:44)
[2021-05-07] MEDS: DAKINS QUARTER STRENGTH (0.125%) 480 ML BOTTLE TOP SCH (11:30)
[2021-05-07] MEDS: BACI/NEOM/POLY B OINT PKT 1 UDPKT PACKET TP SCH (11:30)
[2021-05-07] MEDS: NEOMY SULF/BACITRAC ZN/POLY 15 GM TUBE TP SCH ×2 (11:30→21:44)
[2021-05-07] MEDS: VITAMINS A AND D 56.7 GM TUBE TP SCH ×3 (11:30→21:44)
[2021-05-07] MEDS: POVIDONE-IODINE OINT 28.4 GM TUBE TP SCH ×2 (11:30)
[2021-05-07 13:15] VITALS: BP 110/72
[2021-05-07] MEDS ORDERED: POTASSIUM CHLORIDE 20 MEQ POWDER PACKET GT ONE (15:00)
--- NOTE | 2021-05-07 15:11 | NUR ---
IV Vancomycin given, no adverse reaction noted. No skin rashes, no nausea or vomiting. BRITTNI Clark debrided R hip and L knee wound, medicated for pain prior to wound treatment. Patient tolerated procedure.
[2021-05-07] MEDS: NEPRO 1,000 ML BOTTLE GT PRN (16:57)
[2021-05-07] MEDS: ACETAMINOPHEN 650 MG/20 ML UDC- SA PATIENTS-PAIN ONLY GT PRN (17:05)
--- NOTE | 2021-05-07 17:08 | NUR ---
Referred BMP result on 05/06/21, K+ 3.[address] Sullivan, with order to give 40meq KCl X1. Resident's sister Shae updated of patient's condition and new orders including ATB. She verbalized concern of, if any possible reaction from pneumo vaccine while on ATB. According to Dr. Sullivan he does not expect specific possible reaction added that "patient's immune system maybe revved up that patient may have more of febrile run". Shae verbalized understanding.
[2021-05-07 19:08] VITALS: BP 109/66
[2021-05-07] MEDS: ATORVASTATIN 40 MG TABLET GT SCH (21:44)
[2021-05-07] MEDS: LATANOPROST EYE DROP 0.005% 2.5 ML BOTTLE EACHEYE SCH (21:44)
[2021-05-07 23:50] VITALS: BP 115/67
[2021-05-08] MEDS: POLYVINYL ALCOHOL 15 ML BOTTLE OP SCH ×4 (00:33→17:59)
[2021-05-08] MEDS: ALBUTEROL FS 2.5 MG/0.5 ML VIAL.NEB NEB SCH ×4 (01:40→19:19)
[2021-05-08] MEDS: IPRATROPIUM NEB FS 0.5 MG/2.5 ML AMPUL.NEB NEB SCH ×4 (01:40→19:19)
[2021-05-08 06:41] LABS: CALCIUM, SERUM 9.3 mg/dL (8.5-10.1); CREATININE 0.6 mg/dL (0.6-1.3); POTASSIUM 3.4 mmol/L (3.5-5.1)
[2021-05-08 07:23] VITALS: BP 90/57
[2021-05-08] MEDS: VANCOMYCIN 1 GM in IV D5W 250 ML IV SCH (08:00)
[2021-05-08] MEDS: HYDROGEN PEROXIDE 480 ML BOTTLE TP SCH ×2 (08:06→19:19)
--- NOTE | 2021-05-08 08:10 | NUR ---
Vancomycin AM dose held due to Vanco through level of 21, per pharmacist, she will adjust dosing.
[2021-05-08] MEDS: LISINOPRIL (5MG) 5 MG TABLET GT SCH (09:00)
[2021-05-08] MEDS: ARGININE/GLUTAMINE/CALCIUM BMB 1 EACH POWD.PACK GT SCH ×2 (09:15→17:29)
[2021-05-08] MEDS: TIMOLOL 0.5% SOLN OPHTH 5 ML BOTTLE EACHEYE SCH ×2 (09:15→17:29)
[2021-05-08] MEDS: BICALUTAMIDE 50 MG TABLET GT SCH (09:15)
[2021-05-08] MEDS: BACLOFEN (10 MG) 10 MG TABLET GT SCH (09:15)
[2021-05-08] MEDS: DOCUSATE SODIUM LIQ 100 MG/10 ML UDC GT SCH ×2 (09:15→17:29)
[2021-05-08] MEDS: FOLIC ACID 1 MG TABLET GT SCH (09:15)
[2021-05-08] MEDS: FERROUS SULFATE - FOR SA ONLY 330 MG/7.5 ML UDC GT SCH ×2 (09:15→17:29)
[2021-05-08] MEDS: LORATADINE 10 MG TABLET GT SCH (09:15)
[2021-05-08] MEDS: PROSOURCE / PROSTAT (PYXIS) 30 ML UDC GT SCH ×4 (09:16→21:53)
[2021-05-08] MEDS: PYRIDOXINE HCL 50 MG TABLET GT SCH (09:16)
[2021-05-08] MEDS: PANTOPRAZOLE 40 MG/PACK PACK GT SCH (09:16)
[2021-05-08] MEDS: MULTIVIT W/MINERALS 1 TAB TABLET GT SCH (09:16)
[2021-05-08 12:20] VITALS: BP 107/66
[2021-05-08] MEDS: HYDROCODONE/APAP 5/325MG TABLET GT SCH (12:40)
[2021-05-08] MEDS: DAKINS QUARTER STRENGTH (0.125%) 480 ML BOTTLE TOP SCH (13:30)
[2021-05-08] MEDS: BACI/NEOM/POLY B OINT PKT 1 UDPKT PACKET TP SCH (13:30)
[2021-05-08] MEDS: Z GUARD REMEDY 4 OZ OINT TP SCH ×2 (13:30→21:53)
[2021-05-08] MEDS: POVIDONE-IODINE OINT 28.4 GM TUBE TP SCH (13:30)
[2021-05-08] MEDS: VITAMINS A AND D 56.7 GM TUBE TP SCH ×3 (13:30→21:53)
[2021-05-08] MEDS: NEOMY SULF/BACITRAC ZN/POLY 15 GM TUBE TP SCH ×2 (13:30→21:53)
--- NOTE | 2021-05-08 15:58 | NUR ---
RT NOTE: PATIENT RECEIVED WITH #8 SHILEY CUFFED TRACH ON MECHANICAL VENT. MONTHLY TRACH CHANGE DONE WITH #8 SHILEY CUFFED TRACH WITH NO ADVERSE REACTIONS NOTED. NO REDNESS NOTED. SOME BLEEDING THAT HAS NOW SUBSIDED NOTED. ALARMS VERIFIED AND AUDIBLE. SUCTIONED AND LAVAGED LARGE AMOUNT OF THICK COLES SECRETIONS. AMBU BAG AND NEW TRACH AT [facility].
--- NOTE | 2021-05-08 18:20 | NUR ---
New vancomycin dosing 750 mg. IV q 12 hours carried out. Referred final urine culture result to ANGELLA Glaser, said will review later. 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
[2021-05-08 19:01] VITALS: BP 127/61
[2021-05-08] MEDS: VANCOMYCIN 0.75 GM in IV D5W 250 ML IV SCH (20:05)
--- NOTE | 2021-05-08 21:40 | NUR ---
Noted an order from ANGELLA Francis for Gentamicin IV per pharmacy to dose. She said it can be started in the morning. Endorsed..
[2021-05-08] MEDS: NEPRO 1,000 ML BOTTLE GT PRN (21:53)
[2021-05-08] MEDS: LATANOPROST EYE DROP 0.005% 2.5 ML BOTTLE EACHEYE SCH (21:53)
[2021-05-08] MEDS: ATORVASTATIN 40 MG TABLET GT SCH (21:53)
[2021-05-09 00:12] VITALS: BP 112/69
[2021-05-09] MEDS: POLYVINYL ALCOHOL 15 ML BOTTLE OP SCH ×5 (00:25→23:57)
[2021-05-09] MEDS: IPRATROPIUM NEB FS 0.5 MG/2.5 ML AMPUL.NEB NEB SCH ×4 (01:57→19:30)
[2021-05-09] MEDS: ALBUTEROL FS 2.5 MG/0.5 ML VIAL.NEB NEB SCH ×4 (01:57→19:30)
[2021-05-09 07:49] VITALS: BP 101/46
[2021-05-09] MEDS: HYDROGEN PEROXIDE 480 ML BOTTLE TP SCH ×2 (08:16→21:22)
[2021-05-09] MEDS: DOCUSATE SODIUM LIQ 100 MG/10 ML UDC GT SCH ×2 (08:26→16:49)
[2021-05-09] MEDS: FERROUS SULFATE - FOR SA ONLY 330 MG/7.5 ML UDC GT SCH ×2 (08:26→16:49)
[2021-05-09] MEDS: LORATADINE 10 MG TABLET GT SCH (08:26)
[2021-05-09] MEDS: PYRIDOXINE HCL 50 MG TABLET GT SCH (08:26)
[2021-05-09] MEDS: BICALUTAMIDE 50 MG TABLET GT SCH (08:26)
[2021-05-09] MEDS: FOLIC ACID 1 MG TABLET GT SCH (08:27)
[2021-05-09] MEDS: BACLOFEN (10 MG) 10 MG TABLET GT SCH (08:27)
[2021-05-09] MEDS: ARGININE/GLUTAMINE/CALCIUM BMB 1 EACH POWD.PACK GT SCH ×2 (08:27→16:49)
[2021-05-09] MEDS: HYDROCODONE/APAP 5/325MG TABLET GT SCH (08:28)
[2021-05-09] MEDS: [UNRECOGNIZED DRUG - OTHER] GT SCH (08:28)
[2021-05-09] MEDS: POVIDONE-IODINE OINT 28.4 GM TUBE TP SCH (08:29)
[2021-05-09] MEDS: MULTIVIT W/MINERALS 1 TAB TABLET GT SCH (08:29)
[2021-05-09] MEDS: PANTOPRAZOLE 40 MG/PACK PACK GT SCH (08:29)
[2021-05-09] MEDS: DAKINS QUARTER STRENGTH (0.125%) 480 ML BOTTLE TOP SCH (08:29)
[2021-05-09] MEDS: PROSOURCE / PROSTAT (PYXIS) 30 ML UDC GT SCH ×4 (08:29→21:41)
[2021-05-09] MEDS: Z GUARD REMEDY 4 OZ OINT TP SCH ×2 (08:30→21:41)
[2021-05-09] MEDS: NEOMY SULF/BACITRAC ZN/POLY 15 GM TUBE TP SCH ×2 (08:30→21:41)
[2021-05-09] MEDS: VITAMINS A AND D 56.7 GM TUBE TP SCH ×3 (08:30→21:41)
[2021-05-09] MEDS: TIMOLOL 0.5% SOLN OPHTH 5 ML BOTTLE EACHEYE SCH ×2 (08:31→16:49)
[2021-05-09] MEDS: LISINOPRIL (5MG) 5 MG TABLET GT SCH (08:31)
[2021-05-09] MEDS: VANCOMYCIN 0.75 GM in IV D5W 250 ML IV SCH ×2 (08:32→20:00)
[2021-05-09 08:51] LABS: CALCIUM, SERUM 9.8 mg/dL (8.5-10.1); CREATININE 0.6 mg/dL (0.6-1.3); POTASSIUM 3.5 mmol/L (3.5-5.1)
[2021-05-09] MEDS: GENTAMICIN 120 MG in IV D5W 100 ML IV SCH ×2 (10:12→22:00)
[2021-05-09 12:37] VITALS: BP 116/58
--- NOTE | 2021-05-09 15:30 | NUR ---
[facility] Pharmacy dosed Gentamycin 120mg IV Q12 for UTI. Per [place], Trough will be done on 2020 at 2100. Endorsed.
--- NOTE | 2021-05-09 16:27 | NUR ---
s/p Pneumo vaccine.no signs and symtpoms of bleeding noted. afebrile. no signs of pain and discomfort. will continue to monitor any untoward changes. Endorsed.
[2021-05-09 20:24] VITALS: BP 110/67
[2021-05-09] MEDS: ATORVASTATIN 40 MG TABLET GT SCH (21:41)
[2021-05-09] MEDS: LATANOPROST EYE DROP 0.005% 2.5 ML BOTTLE EACHEYE SCH (21:41)
[2021-05-10] MEDS: IPRATROPIUM NEB FS 0.5 MG/2.5 ML AMPUL.NEB NEB SCH ×4 (02:15→19:30)
[2021-05-10] MEDS: ALBUTEROL FS 2.5 MG/0.5 ML VIAL.NEB NEB SCH ×4 (02:16→19:30)
[2021-05-10] MEDS: POLYVINYL ALCOHOL 15 ML BOTTLE OP SCH ×4 (06:25→23:27)
[2021-05-10] MEDS: VANCOMYCIN 0.75 GM in IV D5W 250 ML IV SCH (08:00)
[2021-05-10 08:11] LABS: CALCIUM, SERUM 9.4 mg/dL (8.5-10.1); CREATININE 0.6 mg/dL (0.6-1.3); POTASSIUM 3.6 mmol/L (3.5-5.1)
[2021-05-10 08:26] VITALS: BP 77/41
[2021-05-10] MEDS: LISINOPRIL (5MG) 5 MG TABLET GT SCH (09:00)
[2021-05-10] MEDS: TIMOLOL 0.5% SOLN OPHTH 5 ML BOTTLE EACHEYE SCH ×2 (09:13→17:06)
[2021-05-10] MEDS: HYDROGEN PEROXIDE 480 ML BOTTLE TP SCH ×2 (09:15→20:35)
[2021-05-10] MEDS: BICALUTAMIDE 50 MG TABLET GT SCH (09:21)
[2021-05-10] MEDS: DOCUSATE SODIUM LIQ 100 MG/10 ML UDC GT SCH ×2 (09:21→17:06)
[2021-05-10] MEDS: MULTIVIT W/MINERALS 1 TAB TABLET GT SCH (09:21)
[2021-05-10] MEDS: PYRIDOXINE HCL 50 MG TABLET GT SCH (09:21)
[2021-05-10] MEDS: PANTOPRAZOLE 40 MG/PACK PACK GT SCH (09:21)
[2021-05-10] MEDS: PROSOURCE / PROSTAT (PYXIS) 30 ML UDC GT SCH ×4 (09:21→21:10)
[2021-05-10] MEDS: FOLIC ACID 1 MG TABLET GT SCH (09:21)
[2021-05-10] MEDS: LORATADINE 10 MG TABLET GT SCH (09:21)
[2021-05-10] MEDS: ARGININE/GLUTAMINE/CALCIUM BMB 1 EACH POWD.PACK GT SCH ×2 (09:21→17:06)
[2021-05-10] MEDS: FERROUS SULFATE - FOR SA ONLY 330 MG/7.5 ML UDC GT SCH ×2 (09:21→17:06)
[2021-05-10] MEDS: BACLOFEN (10 MG) 10 MG TABLET GT SCH (09:21)
[2021-05-10] MEDS: HYDROCODONE/APAP 5/325MG TABLET GT SCH (09:26)
[2021-05-10] MEDS: VITAMINS A AND D 56.7 GM TUBE TP SCH ×3 (10:00→21:10)
[2021-05-10] MEDS: Z GUARD REMEDY 4 OZ OINT TP SCH ×2 (10:00→21:10)
[2021-05-10] MEDS: NEOMY SULF/BACITRAC ZN/POLY 15 GM TUBE TP SCH ×2 (10:00→21:10)
[2021-05-10] MEDS: POVIDONE-IODINE OINT 28.4 GM TUBE TP SCH (10:00)
[2021-05-10] MEDS: GENTAMICIN 120 MG in IV D5W 100 ML IV SCH ×2 (10:00→22:00)
[2021-05-10] MEDS: DAKINS QUARTER STRENGTH (0.125%) 480 ML BOTTLE TOP SCH (10:00)
--- NOTE | 2021-05-10 10:59 | NUR ---
SCSA MDS: SCSA MDSdue to significant weight change with worsening skin condition (+dx PAD, additional PI to left hip, additional left knee wound) per nursing. The pt. is currently Full Code on Vent, Trach & PEG feeding. Pt.'s sister, Shae Jauregui and Maciej CHARLTON [phone] are involved in the pt.'s care plan. The patients last podiatry consultation with Dr. Torres was on 04/30/2021. Dental and Optometry exam pending. Late Entry for 05/04/2021
--- NOTE | 2021-05-10 16:35 | NUR ---
Facility Update: SW notified family via email that, "Facility Update: No [facility] Sub-Acute residents or employees tested positive for COVID-19 this past two weeks. [facility] will continue to test Sub-Acute residents & healthcare personnel as recommended by [facility] Department of Public Health. [facility] continues to follow infection control protocols and screen our residents and staff daily for symptoms." SW also notified family that patient visits have resumed today and emailed updated visitation guidelines. SW notified families about visitation changes:up to 5 family visits per week and if visitors are non-vaccinated, they must present proof of COVID test taken within 72 hours prior to visit.
[2021-05-10] MEDS: ACETAMINOPHEN 650 MG/20 ML UDC- SA PATIENTS-PAIN ONLY GT PRN (17:12)
[2021-05-10 20:00] VITALS: BP 98/67
[2021-05-10] MEDS: ATORVASTATIN 40 MG TABLET GT SCH (21:11)
[2021-05-10] MEDS: LATANOPROST EYE DROP 0.005% 2.5 ML BOTTLE EACHEYE SCH (21:11)
--- NOTE | 2021-05-10 22:05 | NUR ---
RN NOTES Gentamicin trough 4.2, dose held per protocol. Will endorse to following shift.
[2021-05-11] MEDS: ALBUTEROL FS 2.5 MG/0.5 ML VIAL.NEB NEB SCH ×4 (02:04→20:28)
[2021-05-11] MEDS: IPRATROPIUM NEB FS 0.5 MG/2.5 ML AMPUL.NEB NEB SCH ×4 (02:04→20:28)
[2021-05-11] MEDS: POLYVINYL ALCOHOL 15 ML BOTTLE OP SCH ×3 (05:34→17:22)
[2021-05-11] MEDS: NEPRO 1,000 ML BOTTLE GT PRN (05:53)
[2021-05-11] MEDS: HYDROGEN PEROXIDE 480 ML BOTTLE TP SCH ×2 (08:09→20:29)
[2021-05-11 08:16] LABS: CALCIUM, SERUM 9.3 mg/dL (8.5-10.1); CREATININE 0.6 mg/dL (0.6-1.3); POTASSIUM 3.5 mmol/L (3.5-5.1)
[2021-05-11] MEDS: LISINOPRIL (5MG) 5 MG TABLET GT SCH (09:00)
[2021-05-11] MEDS ORDERED: VANCOMYCIN 0.75 GM in IV D5W 250 ML IV SCH (09:00)
[2021-05-11] MEDS: TIMOLOL 0.5% SOLN OPHTH 5 ML BOTTLE EACHEYE SCH ×2 (09:41→17:22)
[2021-05-11] MEDS: LORATADINE 10 MG TABLET GT SCH (09:42)
[2021-05-11] MEDS: [UNRECOGNIZED DRUG - OTHER] GT SCH (09:42)
[2021-05-11] MEDS: BACLOFEN (10 MG) 10 MG TABLET GT SCH (09:42)
[2021-05-11] MEDS: DOCUSATE SODIUM LIQ 100 MG/10 ML UDC GT SCH ×2 (09:42→17:22)
[2021-05-11] MEDS: FERROUS SULFATE - FOR SA ONLY 330 MG/7.5 ML UDC GT SCH ×2 (09:42→17:22)
[2021-05-11] MEDS: ARGININE/GLUTAMINE/CALCIUM BMB 1 EACH POWD.PACK GT SCH ×2 (09:42→17:22)
[2021-05-11] MEDS: BICALUTAMIDE 50 MG TABLET GT SCH (09:42)
[2021-05-11] MEDS: FOLIC ACID 1 MG TABLET GT SCH (09:42)
[2021-05-11] MEDS: HYDROCODONE/APAP 5/325MG TABLET GT SCH (09:43)
[2021-05-11] MEDS: PROSOURCE / PROSTAT (PYXIS) 30 ML UDC GT SCH ×4 (09:43→21:43)
[2021-05-11] MEDS: PANTOPRAZOLE 40 MG/PACK PACK GT SCH (09:43)
[2021-05-11] MEDS: MULTIVIT W/MINERALS 1 TAB TABLET GT SCH (09:43)
[2021-05-11] MEDS: PYRIDOXINE HCL 50 MG TABLET GT SCH (09:43)
--- NOTE | 2021-05-11 10:15 | NUR ---
Gentamicin was held last night due to elevated level. Trough was redrawn this morning. Pt has Gentamicin scheduled at 10 am. Per pharmacy, wait for Gentamicin trough result.
[2021-05-11] MEDS: POVIDONE-IODINE OINT 28.4 GM TUBE TP SCH ×6 (10:20)
[2021-05-11] MEDS: Z GUARD REMEDY 4 OZ OINT TP SCH ×2 (10:20→21:43)
[2021-05-11] MEDS: NEOMY SULF/BACITRAC ZN/POLY 15 GM TUBE TP SCH ×3 (10:20→21:43)
[2021-05-11] MEDS: DAKINS QUARTER STRENGTH (0.125%) 480 ML BOTTLE TOP SCH (10:20)
[2021-05-11] MEDS: VITAMINS A AND D 56.7 GM TUBE TP SCH ×3 (10:20→21:44)
--- NOTE | 2021-05-11 11:30 | NUR ---
Preliminary blood culture results relayed to ANGELLA Zazueta. Pt currently on Vancomycin and Gentamicin. No new order at this time.
[2021-05-11] MEDS: GENTAMICIN 120 MG in IV D5W 100 ML IV SCH (13:00)
[2021-05-11 13:44] VITALS: BP 111/65
[2021-05-11] MEDS: ACETAMINOPHEN 650 MG/20 ML UDC- SA PATIENTS-PAIN ONLY GT PRN (17:23)
[2021-05-11 20:12] VITALS: BP 120/68
[2021-05-11] MEDS: LATANOPROST EYE DROP 0.005% 2.5 ML BOTTLE EACHEYE SCH (21:44)
[2021-05-11] MEDS: ATORVASTATIN 40 MG TABLET GT SCH (21:44)
[2021-05-12] MEDS: POLYVINYL ALCOHOL 15 ML BOTTLE OP SCH ×5 (00:16→23:43)
[2021-05-12 01:43] VITALS: BP 122/69
[2021-05-12] MEDS: ALBUTEROL FS 2.5 MG/0.5 ML VIAL.NEB NEB SCH ×4 (02:28→19:42)
[2021-05-12] MEDS: IPRATROPIUM NEB FS 0.5 MG/2.5 ML AMPUL.NEB NEB SCH ×4 (02:28→19:42)
[2021-05-12 07:09] LABS: CALCIUM, SERUM 9.5 mg/dL (8.5-10.1); CREATININE 0.7 mg/dL (0.6-1.3); POTASSIUM 3.7 mmol/L (3.5-5.1)
[2021-05-12 07:23] VITALS: BP 118/70
[2021-05-12] MEDS: HYDROGEN PEROXIDE 480 ML BOTTLE TP SCH ×2 (08:25→19:42)
[2021-05-12] MEDS: BACLOFEN (10 MG) 10 MG TABLET GT SCH (08:42)
[2021-05-12] MEDS: ARGININE/GLUTAMINE/CALCIUM BMB 1 EACH POWD.PACK GT SCH ×2 (08:42→17:20)
[2021-05-12] MEDS: FOLIC ACID 1 MG TABLET GT SCH (08:42)
[2021-05-12] MEDS: BICALUTAMIDE 50 MG TABLET GT SCH (08:42)
[2021-05-12] MEDS: LORATADINE 10 MG TABLET GT SCH (08:42)
[2021-05-12] MEDS: TIMOLOL 0.5% SOLN OPHTH 5 ML BOTTLE EACHEYE SCH ×2 (08:42→17:22)
[2021-05-12] MEDS: DOCUSATE SODIUM LIQ 100 MG/10 ML UDC GT SCH ×2 (08:42→17:22)
[2021-05-12] MEDS: FERROUS SULFATE - FOR SA ONLY 330 MG/7.5 ML UDC GT SCH ×2 (08:42→17:22)
[2021-05-12] MEDS: HYDROCODONE/APAP 5/325MG TABLET GT SCH (08:42)
[2021-05-12] MEDS: LISINOPRIL (5MG) 5 MG TABLET GT SCH (08:50)
[2021-05-12] MEDS: PANTOPRAZOLE 40 MG/PACK PACK GT SCH (08:50)
[2021-05-12] MEDS: MULTIVIT W/MINERALS 1 TAB TABLET GT SCH (08:50)
[2021-05-12] MEDS: PYRIDOXINE HCL 50 MG TABLET GT SCH (08:50)
[2021-05-12] MEDS: PROSOURCE / PROSTAT (PYXIS) 30 ML UDC GT SCH ×4 (08:50→21:10)
[2021-05-12] MEDS: NEOMY SULF/BACITRAC ZN/POLY 15 GM TUBE TP SCH ×3 (09:00→21:10)
[2021-05-12] MEDS: VITAMINS A AND D 56.7 GM TUBE TP SCH ×3 (09:00→21:10)
[2021-05-12] MEDS: DAKINS QUARTER STRENGTH (0.125%) 480 ML BOTTLE TOP SCH (09:00)
[2021-05-12] MEDS: Z GUARD REMEDY 4 OZ OINT TP SCH ×2 (09:00→21:10)
[2021-05-12] MEDS: POVIDONE-IODINE OINT 28.4 GM TUBE TP SCH ×7 (09:00)
[2021-05-12 12:25] VITALS: BP 124/68
[2021-05-12] MEDS: GENTAMICIN 120 MG in IV D5W 100 ML IV SCH (13:54)
[2021-05-12] MEDS: NEPRO 1,000 ML BOTTLE GT PRN (17:21)
[2021-05-12 20:09] VITALS: BP 109/61
[2021-05-12] MEDS: ATORVASTATIN 40 MG TABLET GT SCH (21:16)
[2021-05-12] MEDS: LATANOPROST EYE DROP 0.005% 2.5 ML BOTTLE EACHEYE SCH (21:16)
[2021-05-12] MEDS: ACETAMINOPHEN 650 MG/20 ML UDC- SA PATIENTS-PAIN ONLY GT PRN (22:19)
[2021-05-13] MEDS: ALBUTEROL FS 2.5 MG/0.5 ML VIAL.NEB NEB SCH ×4 (01:46→19:43)
[2021-05-13] MEDS: IPRATROPIUM NEB FS 0.5 MG/2.5 ML AMPUL.NEB NEB SCH ×4 (01:46→19:43)
[2021-05-13] MEDS: POLYVINYL ALCOHOL 15 ML BOTTLE OP SCH ×4 (06:07→23:07)
[2021-05-13 07:36] VITALS: BP 100/66
[2021-05-13 07:49] LABS: CALCIUM, SERUM 9.9 mg/dL (8.5-10.1); CREATININE 0.7 mg/dL (0.6-1.3); POTASSIUM 4.3 mmol/L (3.5-5.1)
[2021-05-13] MEDS: HYDROGEN PEROXIDE 480 ML BOTTLE TP SCH ×2 (08:07→21:35)
[2021-05-13] MEDS: NEOMY SULF/BACITRAC ZN/POLY 15 GM TUBE TP SCH (09:00)
[2021-05-13] MEDS: ARGININE/GLUTAMINE/CALCIUM BMB 1 EACH POWD.PACK GT SCH ×2 (09:00→16:57)
[2021-05-13] MEDS: LISINOPRIL (5MG) 5 MG TABLET GT SCH (09:00)
[2021-05-13] MEDS: POVIDONE-IODINE OINT 28.4 GM TUBE TP SCH ×7 (09:00)
[2021-05-13] MEDS: VITAMINS A AND D 56.7 GM TUBE TP SCH ×3 (09:00→21:24)
[2021-05-13] MEDS: Z GUARD REMEDY 4 OZ OINT TP SCH ×2 (09:00→21:24)
[2021-05-13] MEDS: DAKINS QUARTER STRENGTH (0.125%) 480 ML BOTTLE TOP SCH (09:00)
[2021-05-13] MEDS: FERROUS SULFATE - FOR SA ONLY 330 MG/7.5 ML UDC GT SCH ×2 (09:11→16:57)
[2021-05-13] MEDS: TIMOLOL 0.5% SOLN OPHTH 5 ML BOTTLE EACHEYE SCH ×2 (09:11→16:57)
[2021-05-13] MEDS: DOCUSATE SODIUM LIQ 100 MG/10 ML UDC GT SCH ×2 (09:11→16:57)
[2021-05-13] MEDS: BACLOFEN (10 MG) 10 MG TABLET GT SCH (09:11)
[2021-05-13] MEDS: LORATADINE 10 MG TABLET GT SCH (09:11)
[2021-05-13] MEDS: BICALUTAMIDE 50 MG TABLET GT SCH (09:11)
[2021-05-13] MEDS: FOLIC ACID 1 MG TABLET GT SCH (09:11)
[2021-05-13] MEDS: [UNRECOGNIZED DRUG - OTHER] GT SCH (09:12)
[2021-05-13] MEDS: HYDROCODONE/APAP 5/325MG TABLET GT SCH (09:12)
[2021-05-13] MEDS: PROSOURCE / PROSTAT (PYXIS) 30 ML UDC GT SCH ×4 (09:13→21:00)
[2021-05-13] MEDS: PANTOPRAZOLE 40 MG/PACK PACK GT SCH (09:13)
[2021-05-13] MEDS: MULTIVIT W/MINERALS 1 TAB TABLET GT SCH (09:13)
[2021-05-13] MEDS: PYRIDOXINE HCL 50 MG TABLET GT SCH (09:14)
[2021-05-13] MEDS: NEPRO 1,000 ML BOTTLE GT PRN (10:14)
--- NOTE | 2021-05-13 10:41 | NUR ---
Pt's sister Shae Jauregui gave consent to give booster dose of Covid-19 vaccine. Risks, benefits, and side effects discussed with her.
[2021-05-13 12:31] VITALS: BP 110/75
[2021-05-13] MEDS: GENTAMICIN 120 MG in IV D5W 100 ML IV SCH (13:00)
--- NOTE | 2021-05-13 13:45 | NUR ---
Per BEAUTY CULTURIST Xenia Zazueta, it is fine to give Covid vaccine booster dose to pt even while on antibiotics. Notified Dr Santillan and received order to give booster dose.
--- NOTE | 2021-05-13 14:25 | NUR ---
Relayed blood culture result to PROFESSOR OF MECHANICAL ENGINEERING Xenia Zazueta. She ordered to DC Gentamicin and start Levaquin 500 mg IV daily for 5 days per protocol. Reminded her that Gentamicin is for UTI. She said to continue Gentamicin and give Levaquin. Pharmacy adjusted Levaquin dose to 750 mg IV daily. Notified ANGELLA Michaels. Addendum: 05/13/21 at 1835 by [place] RN Notified Shae.
[2021-05-13] MEDS ORDERED: VACC MRNA IM ONE (15:00)
[2021-05-13] MEDS: LEVOFLOXACIN 750 MG /D5W 150ML 750 MG in PREMIX 1 EA IV SCH (15:00)
[2021-05-13] MEDS ORDERED: COVID IM ONE (15:00)
--- NOTE | 2021-05-13 15:45 | NUR ---
Pfizer Covid-19 vaccine booster dose administered on pt's left deltoid. Lot number [id number], expiration 05/16/21.
--- NOTE | 2021-05-13 18:29 | NUR ---
INFLUENZA VACCINATION ASSESSMENT Before offering the influenza immunization, each resident's dental detail representative received education regarding the benefits (minimize the risk of residents acquiring, transmitting, or experiencing complication from influenza) and potential side effects (soreness, redness, and swelling where the shot is given, fever, muscle aches, headache, and an allergic reaction) of the immunization. Vaccine information statement dated 03/19/21 was provided to pt's family. Spoke with pt's sister Shae, she gave consent to give the influenza vaccine.
[2021-05-13 20:02] VITALS: BP 118/78
[2021-05-13] MEDS: LATANOPROST EYE DROP 0.005% 2.5 ML BOTTLE EACHEYE SCH (21:24)
[2021-05-13] MEDS: ATORVASTATIN 40 MG TABLET GT SCH (21:24)
[2021-05-13] MEDS: ACETAMINOPHEN 650 MG/20 ML UDC- SA PATIENTS-PAIN ONLY GT PRN (23:12)
[2021-05-13 23:30] VITALS: BP 116/75
[2021-05-14] MEDS: IPRATROPIUM NEB FS 0.5 MG/2.5 ML AMPUL.NEB NEB SCH ×3 (01:20→14:17)
[2021-05-14] MEDS: ALBUTEROL FS 2.5 MG/0.5 ML VIAL.NEB NEB SCH ×3 (01:20→14:17)
[2021-05-14] MEDS: POLYVINYL ALCOHOL 15 ML BOTTLE OP SCH ×3 (05:12→18:10)
--- NOTE | 2021-05-14 06:11 | NUR ---
S/P covid 19 booster ,remains afebrile 98.6 no adverse reaction noted.Will continue to monitor.
--- NOTE | 2021-05-14 06:15 | NUR ---
Patient continue to have hematuria with some blood clots. Patient HR is @ 110-115 during the night. Will continue to monitor and will endorse.
[2021-05-14 07:03] LABS: CALCIUM, SERUM 9.8 mg/dL (8.5-10.1); CREATININE 0.7 mg/dL (0.6-1.3); POTASSIUM 3.3 mmol/L (3.5-5.1)
[2021-05-14] MEDS: VITAMINS A AND D 56.7 GM TUBE TP SCH ×3 (09:00→21:30)
[2021-05-14] MEDS: POVIDONE-IODINE OINT 28.4 GM TUBE TP SCH ×7 (09:00)
[2021-05-14] MEDS: NEOMY SULF/BACITRAC ZN/POLY 15 GM TUBE TP SCH (09:00)
[2021-05-14] MEDS: Z GUARD REMEDY 4 OZ OINT TP SCH ×2 (09:00→21:29)
[2021-05-14] MEDS: DAKINS QUARTER STRENGTH (0.125%) 480 ML BOTTLE TOP SCH (09:00)
[2021-05-14] MEDS: BICALUTAMIDE 50 MG TABLET GT SCH (09:30)
[2021-05-14] MEDS: BACLOFEN (10 MG) 10 MG TABLET GT SCH (09:30)
[2021-05-14] MEDS: FOLIC ACID 1 MG TABLET GT SCH (09:30)
[2021-05-14] MEDS: DOCUSATE SODIUM LIQ 100 MG/10 ML UDC GT SCH ×2 (09:30→16:26)
[2021-05-14] MEDS: TIMOLOL 0.5% SOLN OPHTH 5 ML BOTTLE EACHEYE SCH ×2 (09:30→16:26)
[2021-05-14] MEDS: LORATADINE 10 MG TABLET GT SCH (09:30)
[2021-05-14] MEDS: FERROUS SULFATE - FOR SA ONLY 330 MG/7.5 ML UDC GT SCH ×2 (09:30→16:26)
[2021-05-14] MEDS: ARGININE/GLUTAMINE/CALCIUM BMB 1 EACH POWD.PACK GT SCH ×2 (09:30→16:26)
[2021-05-14] MEDS: MULTIVIT W/MINERALS 1 TAB TABLET GT SCH (09:31)
[2021-05-14] MEDS: PROSOURCE / PROSTAT (PYXIS) 30 ML UDC GT SCH ×4 (09:31→21:29)
[2021-05-14] MEDS: PYRIDOXINE HCL 50 MG TABLET GT SCH (09:31)
[2021-05-14] MEDS: PANTOPRAZOLE 40 MG/PACK PACK GT SCH (09:31)
[2021-05-14] MEDS: LISINOPRIL (5MG) 5 MG TABLET GT SCH (09:31)
[2021-05-14] MEDS: HYDROCODONE/APAP 5/325MG TABLET GT SCH (09:31)
[2021-05-14] MEDS: HYDROGEN PEROXIDE 480 ML BOTTLE TP SCH (09:36)
[2021-05-14] MEDS ORDERED: POTASSIUM CHLORIDE 20 MEQ POWDER PACKET GT ONE ×2 (10:30→13:30)
[2021-05-14 12:59] VITALS: BP 146/71
[2021-05-14] MEDS: GENTAMICIN 120 MG in IV D5W 100 ML IV SCH (13:45)
--- NOTE | 2021-05-14 15:46 | NUR ---
Dental Referral: MAURICIO faxed pt.'s facesheet to [facility] Dentist, Dr. Alexandra's office [phone] for annual exam and cleaning.
--- NOTE | 2021-05-14 15:50 | NUR ---
Clarified stop date of Levaquin from Tito Novoa, to be given total of 2 weeks. Reported elevated HR to Dr. Santillan, it has been consistently high between 115-120 from last night. At this time HR is slightly lower 111-114. Resident also given Klorcon 20 meq/GT x 1 for K= level of 3.3 per pharmacy protocol. No new order given by Dr. Santillan, to monitor for fever. O2 saturation and pain.
[2021-05-14] MEDS: LEVOFLOXACIN 750 MG /D5W 150ML 750 MG in PREMIX 1 EA IV SCH (16:05)
[2021-05-14] MEDS: NEPRO 1,000 ML BOTTLE GT PRN (16:26)
[2021-05-14] MEDS: ACETAMINOPHEN 650 MG/20 ML UDC- SA PATIENTS-PAIN ONLY GT PRN (16:27)
--- NOTE | 2021-05-14 18:42 | NUR ---
S/P covid 19 vaccine 3rd dose administered at left deltoid, pt with low grade temp of 99.4, pt no discomfort, will cont to monitor.
[2021-05-14] MEDS: ATORVASTATIN 40 MG TABLET GT SCH (21:30)
[2021-05-14] MEDS: LATANOPROST EYE DROP 0.005% 2.5 ML BOTTLE EACHEYE SCH (21:30)
[2021-05-15 00:38] VITALS: BP 110/70
[2021-05-15] MEDS: POLYVINYL ALCOHOL 15 ML BOTTLE OP SCH ×4 (00:44→17:29)
[2021-05-15] MEDS: IPRATROPIUM NEB FS 0.5 MG/2.5 ML AMPUL.NEB NEB SCH ×4 (01:21→19:30)
[2021-05-15] MEDS: ALBUTEROL FS 2.5 MG/0.5 ML VIAL.NEB NEB SCH ×4 (01:21→19:30)
[2021-05-15] MEDS: HYDROGEN PEROXIDE 480 ML BOTTLE TP SCH ×3 (01:21→21:03)
[2021-05-15 08:17] VITALS: BP 117/62
[2021-05-15] MEDS: BACLOFEN (10 MG) 10 MG TABLET GT SCH (08:54)
[2021-05-15] MEDS: TIMOLOL 0.5% SOLN OPHTH 5 ML BOTTLE EACHEYE SCH ×2 (08:54→17:29)
[2021-05-15] MEDS: FERROUS SULFATE - FOR SA ONLY 330 MG/7.5 ML UDC GT SCH ×2 (08:54→17:29)
[2021-05-15] MEDS: [UNRECOGNIZED DRUG - OTHER] GT SCH (08:54)
[2021-05-15] MEDS: BICALUTAMIDE 50 MG TABLET GT SCH (08:54)
[2021-05-15] MEDS: ARGININE/GLUTAMINE/CALCIUM BMB 1 EACH POWD.PACK GT SCH ×2 (08:54→17:29)
[2021-05-15] MEDS: LORATADINE 10 MG TABLET GT SCH (08:54)
[2021-05-15] MEDS: DOCUSATE SODIUM LIQ 100 MG/10 ML UDC GT SCH ×2 (08:54→17:29)
[2021-05-15] MEDS: FOLIC ACID 1 MG TABLET GT SCH (08:54)
[2021-05-15] MEDS: HYDROCODONE/APAP 5/325MG TABLET GT SCH (08:54)
[2021-05-15] MEDS: MULTIVIT W/MINERALS 1 TAB TABLET GT SCH (08:55)
[2021-05-15] MEDS: DAKINS QUARTER STRENGTH (0.125%) 480 ML BOTTLE TOP SCH (08:55)
[2021-05-15] MEDS: PANTOPRAZOLE 40 MG/PACK PACK GT SCH (08:55)
[2021-05-15] MEDS: POVIDONE-IODINE OINT 28.4 GM TUBE TP SCH ×7 (08:55)
[2021-05-15] MEDS: PROSOURCE / PROSTAT (PYXIS) 30 ML UDC GT SCH ×4 (08:55→21:36)
[2021-05-15] MEDS: LISINOPRIL (5MG) 5 MG TABLET GT SCH (08:55)
[2021-05-15] MEDS: PYRIDOXINE HCL 50 MG TABLET GT SCH (08:55)
[2021-05-15] MEDS: Z GUARD REMEDY 4 OZ OINT TP SCH ×2 (08:56→21:36)
[2021-05-15] MEDS: VITAMINS A AND D 56.7 GM TUBE TP SCH ×3 (08:56→21:36)
[2021-05-15] MEDS: NEOMY SULF/BACITRAC ZN/POLY 15 GM TUBE TP SCH (08:56)
[2021-05-15 11:02] LABS: BASOPHILS % (AUTO) 0.2 % (0.0-2.0); EOSINOPHILS % (AUTO) 1.3 % (0.0-6.0); HEMATOCRIT 23 % (39-51); HEMOGLOBIN 7.3 g/dL (13.5-17.5); LYMPHOCYTES # (AUTO) 0.9 K/uL (0.8-4.8); LYMPHOCYTES % (AUTO) 10.8 % (20.0-44.0); MEAN CORPUSCULAR HGB CONC 31 g/dl (31.0-36.0); MEAN CORPUSCULAR VOLUME 92 fL (80-96); MONOCYTES # (AUTO) 0.5 K/uL (0.1-1.30); MONOCYTES % (AUTO) 6.1 % (2.0-12.0); NEUTROPHILS # (AUTO) 6.8 K/uL (1.8-8.9); NEUTROPHILS % (AUTO) 81.6 % (43.0-81.0); PLATELET COUNT (AUTO) 304 K/uL (150-450); RED BLOOD CELL COUNT(AUTO) 2.53 MIL/uL (4.5-6.0); WHITE BLOOD COUNT (AUTO) 8.4 K/uL (4.3-11.0)
[2021-05-15 11:18] LABS: CREATININE 0.7 mg/dL (0.6-1.3); POTASSIUM 3.3 mmol/L (3.5-5.1)
[2021-05-15 12:02] VITALS: BP 110/68
[2021-05-15] MEDS: GENTAMICIN 120 MG in IV D5W 100 ML IV SCH (14:02)
[2021-05-15] MEDS: LEVOFLOXACIN 750 MG /D5W 150ML 750 MG in PREMIX 1 EA IV SCH (15:00)
[2021-05-15 20:26] VITALS: BP 110/69
[2021-05-15] MEDS: ATORVASTATIN 40 MG TABLET GT SCH (21:36)
[2021-05-15] MEDS: LATANOPROST EYE DROP 0.005% 2.5 ML BOTTLE EACHEYE SCH (21:36)
--- NOTE | 2021-05-16 | NUR ---
RN NOTES OLD RIGHT UPPER ARM MIDLINE REMOVED WITH NO ACTIVE BLEEDING OR S/S OF INFECTION NOTED. NO S/S OF PAIN/DISCOMFORT OBSERVED. WILL CONTINUE TO MONITOR.
[2021-05-16] MEDS: POLYVINYL ALCOHOL 15 ML BOTTLE OP SCH ×5 (00:30→23:12)
[2021-05-16 01:08] VITALS: BP 105/64
[2021-05-16] MEDS: ALBUTEROL FS 2.5 MG/0.5 ML VIAL.NEB NEB SCH ×4 (01:55→19:30)
[2021-05-16] MEDS: IPRATROPIUM NEB FS 0.5 MG/2.5 ML AMPUL.NEB NEB SCH ×4 (01:55→19:30)
[2021-05-16 07:53] LABS: CALCIUM, SERUM 9.5 mg/dL (8.5-10.1); CREATININE 0.7 mg/dL (0.6-1.3); POTASSIUM 3.3 mmol/L (3.5-5.1)
[2021-05-16] MEDS: HYDROGEN PEROXIDE 480 ML BOTTLE TP SCH ×2 (08:06→20:44)
[2021-05-16 08:37] VITALS: BP 113/61
[2021-05-16] MEDS: TIMOLOL 0.5% SOLN OPHTH 5 ML BOTTLE EACHEYE SCH ×2 (09:00→17:15)
[2021-05-16] MEDS: VITAMINS A AND D 56.7 GM TUBE TP SCH ×3 (09:00→21:44)
[2021-05-16] MEDS: BICALUTAMIDE 50 MG TABLET GT SCH (09:00)
[2021-05-16] MEDS: FOLIC ACID 1 MG TABLET GT SCH (09:00)
[2021-05-16] MEDS: FERROUS SULFATE - FOR SA ONLY 330 MG/7.5 ML UDC GT SCH ×2 (09:00→17:15)
[2021-05-16] MEDS: HYDROCODONE/APAP 5/325MG TABLET GT SCH (09:00)
[2021-05-16] MEDS: PROSOURCE / PROSTAT (PYXIS) 30 ML UDC GT SCH ×4 (09:00→21:44)
[2021-05-16] MEDS: PYRIDOXINE HCL 50 MG TABLET GT SCH (09:00)
[2021-05-16] MEDS: POVIDONE-IODINE OINT 28.4 GM TUBE TP SCH ×7 (09:00)
[2021-05-16] MEDS: MULTIVIT W/MINERALS 1 TAB TABLET GT SCH (09:00)
[2021-05-16] MEDS: BACLOFEN (10 MG) 10 MG TABLET GT SCH (09:00)
[2021-05-16] MEDS: ARGININE/GLUTAMINE/CALCIUM BMB 1 EACH POWD.PACK GT SCH ×2 (09:00→17:16)
[2021-05-16] MEDS: LORATADINE 10 MG TABLET GT SCH (09:00)
[2021-05-16] MEDS: NEOMY SULF/BACITRAC ZN/POLY 15 GM TUBE TP SCH (09:00)
[2021-05-16] MEDS: DOCUSATE SODIUM LIQ 100 MG/10 ML UDC GT SCH ×2 (09:00→17:15)
[2021-05-16] MEDS: PANTOPRAZOLE 40 MG/PACK PACK GT SCH (09:00)
[2021-05-16] MEDS: DAKINS QUARTER STRENGTH (0.125%) 480 ML BOTTLE TOP SCH (09:00)
[2021-05-16] MEDS: LISINOPRIL (5MG) 5 MG TABLET GT SCH (09:00)
[2021-05-16] MEDS: Z GUARD REMEDY 4 OZ OINT TP SCH ×2 (09:00→21:44)
--- NOTE | 2021-05-16 10:50 | NUR ---
Seen and examined resident, informed about continues hematuria, reviewed previous CBC and today's BMP result, ordered KCL 40 meq via GT x 1 d/t K+ 3.3, carried out. Will continue to monitor.
[2021-05-16] MEDS ORDERED: POTASSIUM CHLORIDE 20 MEQ POWDER PACKET GT ONE (11:30)
[2021-05-16] MEDS: LEVOFLOXACIN 750 MG /D5W 150ML 750 MG in PREMIX 1 EA IV SCH (15:00)
[2021-05-16] MEDS: NEPRO 1,000 ML BOTTLE GT PRN (16:40)
[2021-05-16 20:20] VITALS: BP 108/67
[2021-05-16] MEDS: ATORVASTATIN 40 MG TABLET GT SCH (21:44)
[2021-05-16] MEDS: LATANOPROST EYE DROP 0.005% 2.5 ML BOTTLE EACHEYE SCH (21:44)
[2021-05-17] MEDS: ALBUTEROL FS 2.5 MG/0.5 ML VIAL.NEB NEB SCH ×4 (01:37→19:35)
[2021-05-17] MEDS: IPRATROPIUM NEB FS 0.5 MG/2.5 ML AMPUL.NEB NEB SCH ×4 (01:37→19:35)
[2021-05-17] MEDS: POLYVINYL ALCOHOL 15 ML BOTTLE OP SCH ×4 (06:17→23:48)
--- NOTE | 2021-05-17 07:29 | NUR ---
Late entry for 05/13/21 Administered pt's IV ATBs as ordered.
[2021-05-17 07:43] VITALS: BP 116/67
[2021-05-17 07:48] LABS: CALCIUM, SERUM 9.4 mg/dL (8.5-10.1); CREATININE 0.8 mg/dL (0.6-1.3); POTASSIUM 3.8 mmol/L (3.5-5.1)
[2021-05-17] MEDS: HYDROGEN PEROXIDE 480 ML BOTTLE TP SCH ×2 (08:09→19:35)
[2021-05-17] MEDS: DOCUSATE SODIUM LIQ 100 MG/10 ML UDC GT SCH ×2 (09:44→16:10)
[2021-05-17] MEDS: BACLOFEN (10 MG) 10 MG TABLET GT SCH (09:44)
[2021-05-17] MEDS: [UNRECOGNIZED DRUG - OTHER] GT SCH (09:44)
[2021-05-17] MEDS: LORATADINE 10 MG TABLET GT SCH (09:44)
[2021-05-17] MEDS: FERROUS SULFATE - FOR SA ONLY 330 MG/7.5 ML UDC GT SCH ×2 (09:44→16:10)
[2021-05-17] MEDS: FOLIC ACID 1 MG TABLET GT SCH (09:44)
[2021-05-17] MEDS: BICALUTAMIDE 50 MG TABLET GT SCH (09:44)
[2021-05-17] MEDS: ARGININE/GLUTAMINE/CALCIUM BMB 1 EACH POWD.PACK GT SCH ×2 (09:44→16:10)
[2021-05-17] MEDS: TIMOLOL 0.5% SOLN OPHTH 5 ML BOTTLE EACHEYE SCH ×2 (09:44→16:10)
[2021-05-17] MEDS: PANTOPRAZOLE 40 MG/PACK PACK GT SCH (09:45)
[2021-05-17] MEDS: MULTIVIT W/MINERALS 1 TAB TABLET GT SCH (09:45)
[2021-05-17] MEDS: HYDROCODONE/APAP 5/325MG TABLET GT SCH (09:45)
[2021-05-17] MEDS: PYRIDOXINE HCL 50 MG TABLET GT SCH (09:45)
[2021-05-17] MEDS: LISINOPRIL (5MG) 5 MG TABLET GT SCH (09:45)
[2021-05-17] MEDS: POVIDONE-IODINE OINT 28.4 GM TUBE TP SCH ×6 (09:45)
[2021-05-17] MEDS: DAKINS QUARTER STRENGTH (0.125%) 480 ML BOTTLE TOP SCH (09:45)
[2021-05-17] MEDS: PROSOURCE / PROSTAT (PYXIS) 30 ML UDC GT SCH ×4 (09:45→21:47)
[2021-05-17] MEDS: NEOMY SULF/BACITRAC ZN/POLY 15 GM TUBE TP SCH (09:46)
[2021-05-17] MEDS: VITAMINS A AND D 56.7 GM TUBE TP SCH ×3 (09:46→21:47)
[2021-05-17] MEDS: Z GUARD REMEDY 4 OZ OINT TP SCH ×2 (09:46→21:47)
[2021-05-17 12:23] VITALS: BP 112/64
[2021-05-17] MEDS: LEVOFLOXACIN 750 MG /D5W 150ML 750 MG in PREMIX 1 EA IV SCH (15:00)
--- NOTE | 2021-05-17 18:10 | NUR ---
Seen and examined by Jennifer Porras NP reviewed BMP result, gave order to start 1/2 NS at 50cc/hr x 24 for hydration and to increased GT water flush to 250 cc q 4 hrs, carried out. Will continue to monitor.
[2021-05-17] MEDS ORDERED: IV 1/2NS 1000 ML 1,000 ML IV PRN (18:30)
[2021-05-17 19:52] VITALS: BP 114/63
[2021-05-17] MEDS: LATANOPROST EYE DROP 0.005% 2.5 ML BOTTLE EACHEYE SCH (21:48)
[2021-05-17] MEDS: ATORVASTATIN 40 MG TABLET GT SCH (21:48)
[2021-05-18] MEDS: IPRATROPIUM NEB FS 0.5 MG/2.5 ML AMPUL.NEB NEB SCH ×4 (01:52→20:20)
[2021-05-18] MEDS: ALBUTEROL FS 2.5 MG/0.5 ML VIAL.NEB NEB SCH ×4 (01:52→20:20)
[2021-05-18] MEDS: POLYVINYL ALCOHOL 15 ML BOTTLE OP SCH ×4 (05:29→23:54)
[2021-05-18 07:22] VITALS: BP 113/67
[2021-05-18 07:23] LABS: CALCIUM, SERUM 9.4 mg/dL (8.5-10.1); CREATININE 0.8 mg/dL (0.6-1.3); POTASSIUM 3.6 mmol/L (3.5-5.1)
[2021-05-18] MEDS: LORATADINE 10 MG TABLET GT SCH (08:55)
[2021-05-18] MEDS: DOCUSATE SODIUM LIQ 100 MG/10 ML UDC GT SCH ×2 (08:55→16:59)
[2021-05-18] MEDS: ARGININE/GLUTAMINE/CALCIUM BMB 1 EACH POWD.PACK GT SCH ×2 (08:55→16:59)
[2021-05-18] MEDS: FOLIC ACID 1 MG TABLET GT SCH (08:55)
[2021-05-18] MEDS: TIMOLOL 0.5% SOLN OPHTH 5 ML BOTTLE EACHEYE SCH ×2 (08:55→16:59)
[2021-05-18] MEDS: FERROUS SULFATE - FOR SA ONLY 330 MG/7.5 ML UDC GT SCH ×2 (08:55→16:59)
[2021-05-18] MEDS: BACLOFEN (10 MG) 10 MG TABLET GT SCH (08:55)
[2021-05-18] MEDS: BICALUTAMIDE 50 MG TABLET GT SCH (08:55)
[2021-05-18] MEDS: HYDROCODONE/APAP 5/325MG TABLET GT SCH (08:55)
[2021-05-18] MEDS: Z GUARD REMEDY 4 OZ OINT TP SCH ×2 (08:56→21:37)
[2021-05-18] MEDS: MULTIVIT W/MINERALS 1 TAB TABLET GT SCH (08:56)
[2021-05-18] MEDS: NEOMY SULF/BACITRAC ZN/POLY 15 GM TUBE TP SCH (08:56)
[2021-05-18] MEDS: DAKINS QUARTER STRENGTH (0.125%) 480 ML BOTTLE TOP SCH (08:56)
[2021-05-18] MEDS: PROSOURCE / PROSTAT (PYXIS) 30 ML UDC GT SCH ×4 (08:56→21:37)
[2021-05-18] MEDS: LISINOPRIL (5MG) 5 MG TABLET GT SCH (08:56)
[2021-05-18] MEDS: POVIDONE-IODINE OINT 28.4 GM TUBE TP SCH ×6 (08:56)
[2021-05-18] MEDS: PYRIDOXINE HCL 50 MG TABLET GT SCH (08:56)
[2021-05-18] MEDS: PANTOPRAZOLE 40 MG/PACK PACK GT SCH (08:56)
[2021-05-18] MEDS: VITAMINS A AND D 56.7 GM TUBE TP SCH ×3 (08:56→21:37)
[2021-05-18] MEDS: HYDROGEN PEROXIDE 480 ML BOTTLE TP SCH ×2 (09:37→21:00)
--- NOTE | 2021-05-18 10:05 | NUR ---
Seen and examined by Dr. Sullivan, relayed BMP result, new order given to repeat CBC in AM, Hbg trending down and still with hematuria. Order carried out.
[2021-05-18 12:05] VITALS: BP 111/73
[2021-05-18] MEDS: LEVOFLOXACIN 750 MG /D5W 150ML 750 MG in PREMIX 1 EA IV SCH (15:06)
[2021-05-18 19:13] VITALS: BP 118/69
[2021-05-18] MEDS: LATANOPROST EYE DROP 0.005% 2.5 ML BOTTLE EACHEYE SCH (21:37)
[2021-05-18] MEDS: ATORVASTATIN 40 MG TABLET GT SCH (21:37)
[2021-05-19] VITALS (9 sets, daily range): BP systolic 114–147; BP diastolic 56–90
[2021-05-19] MEDS: ALBUTEROL FS 2.5 MG/0.5 ML VIAL.NEB NEB SCH ×4 (02:24→19:14)
[2021-05-19] MEDS: IPRATROPIUM NEB FS 0.5 MG/2.5 ML AMPUL.NEB NEB SCH ×4 (02:24→19:14)
[2021-05-19] MEDS: POLYVINYL ALCOHOL 15 ML BOTTLE OP SCH ×4 (06:00→23:16)
[2021-05-19 06:51] LABS: BASOPHILS % (AUTO) 0.4 % (0.0-2.0); EOSINOPHILS % (AUTO) 1.5 % (0.0-6.0); HEMATOCRIT 23 % (39-51); LYMPHOCYTES % (AUTO) 12.9 % (20.0-44.0); MEAN CORPUSCULAR HGB CONC 31 g/dl (31.0-36.0); MEAN CORPUSCULAR VOLUME 92 fL (80-96); MONOCYTES # (AUTO) 0.8 K/uL (0.1-1.30); MONOCYTES % (AUTO) 9.5 % (2.0-12.0); NEUTROPHILS # (AUTO) 6.1 K/uL (1.8-8.9); NEUTROPHILS % (AUTO) 75.7 % (43.0-81.0); PLATELET COUNT (AUTO) 276 K/uL (150-450); RED BLOOD CELL COUNT(AUTO) 2.44 MIL/uL (4.5-6.0)
[2021-05-19 07:46] LABS: CREATININE 0.9 mg/dL (0.6-1.3); POTASSIUM 3.5 mmol/L (3.5-5.1)
[2021-05-19] MEDS: POVIDONE-IODINE OINT 28.4 GM TUBE TP SCH ×6 (09:00)
[2021-05-19] MEDS: DAKINS QUARTER STRENGTH (0.125%) 480 ML BOTTLE TOP SCH (09:00)
[2021-05-19] MEDS: NEOMY SULF/BACITRAC ZN/POLY 15 GM TUBE TP SCH (09:00)
[2021-05-19] MEDS: VITAMINS A AND D 56.7 GM TUBE TP SCH ×3 (09:00→21:40)
[2021-05-19] MEDS: Z GUARD REMEDY 4 OZ OINT TP SCH ×2 (09:00→21:40)
[2021-05-19] MEDS: HYDROGEN PEROXIDE 480 ML BOTTLE TP SCH ×2 (09:27→19:14)
[2021-05-19] MEDS: LORATADINE 10 MG TABLET GT SCH (09:38)
[2021-05-19] MEDS: ARGININE/GLUTAMINE/CALCIUM BMB 1 EACH POWD.PACK GT SCH ×2 (09:38→17:41)
[2021-05-19] MEDS: DOCUSATE SODIUM LIQ 100 MG/10 ML UDC GT SCH ×2 (09:38→17:41)
[2021-05-19] MEDS: FERROUS SULFATE - FOR SA ONLY 330 MG/7.5 ML UDC GT SCH ×2 (09:38→17:41)
[2021-05-19] MEDS: TIMOLOL 0.5% SOLN OPHTH 5 ML BOTTLE EACHEYE SCH ×2 (09:38→17:41)
[2021-05-19] MEDS: BICALUTAMIDE 50 MG TABLET GT SCH (09:38)
[2021-05-19] MEDS: FOLIC ACID 1 MG TABLET GT SCH (09:38)
[2021-05-19] MEDS: [UNRECOGNIZED DRUG - OTHER] GT SCH (09:39)
[2021-05-19] MEDS: BACLOFEN (10 MG) 10 MG TABLET GT SCH (09:39)
[2021-05-19] MEDS: HYDROCODONE/APAP 5/325MG TABLET GT SCH (09:39)
[2021-05-19] MEDS: PANTOPRAZOLE 40 MG/PACK PACK GT SCH (09:40)
[2021-05-19] MEDS: PYRIDOXINE HCL 50 MG TABLET GT SCH (09:40)
[2021-05-19] MEDS: PROSOURCE / PROSTAT (PYXIS) 30 ML UDC GT SCH ×4 (09:40→21:40)
[2021-05-19] MEDS: LISINOPRIL (5MG) 5 MG TABLET GT SCH (09:40)
[2021-05-19] MEDS: MULTIVIT W/MINERALS 1 TAB TABLET GT SCH (09:40)
--- NOTE | 2021-05-19 09:40 | NUR ---
Relayed CBC with Hbg 7.0 and BMP result to Dr. Santillan. New order given to transfuse 1 unit PRBC. Order carried out.
[2021-05-19 09:45] LABS: LYMPHOCYTES % (MANUAL) 13 % (16-48); MONOCYTES % (MANUAL) 8 % (0-11.0); NEUTROPHILS % (MANUAL) 79 (42-76)
[2021-05-19] MEDS ORDERED: LIDOCAINE 1%-EPI 1:100,000 20 ML VIAL TP ONE (11:00)
--- NOTE | 2021-05-19 11:41 | NUR ---
Seen and examined by ANGELLA Porras, no new order given.
--- NOTE | 2021-05-19 13:15 | NUR ---
Obtained telephone consent from patient's sister Shae to transfuse 1 unit PRBC, witnessed by two licensed nurses. Attempted to draw specimen from midline but no blood return, item processor will draw the blood.
[2021-05-19] MEDS: LEVOFLOXACIN 750 MG /D5W 150ML 750 MG in PREMIX 1 EA IV SCH (14:43)
--- NOTE | 2021-05-19 18:42 | NUR ---
Spoke with blood bank staff to follow-up if blood is ready. According to staff, the specimen was clotted and they have to redraw and they are working right now. Endorsed.
--- NOTE | 2021-05-19 20:06 | NUR ---
Blood transfusion started as ordered 1 unit PRBC, left upper arm midline ,vital signs stable ,patient awake and comfortable.Verified with ACCOUNT ADMINISTRATOR blood products. Will continue to monitor closely.
--- NOTE | 2021-05-19 20:17 | NUR ---
Blood transfusing ,no adverse reaction noted at this time. Will continue to monitor.
--- NOTE | 2021-05-19 21:00 | NUR ---
Patient vomited large amount of formula like mixed with secretions. Suctioned and keep head elevated.No gastric residual aspirated. Zofran 4 mg via GT. Will monitor.
[2021-05-19] MEDS: ONDANSETRON 4 MG TAB.RAPDIS GT PRN (21:01)
[2021-05-19] MEDS: MAGNESIUM HYDROXIDE 30 ML UDC GT PRN (21:02)
[2021-05-19] MEDS: LATANOPROST EYE DROP 0.005% 2.5 ML BOTTLE EACHEYE SCH (21:40)
[2021-05-19] MEDS: ATORVASTATIN 40 MG TABLET GT SCH (21:41)
--- NOTE | 2021-05-19 22:42 | NUR ---
Blood transfusion completed. Vital signs stable. No adverse reaction. Will continue to monitor.
[2021-05-20 00:30] VITALS: BP 143/90
[2021-05-20] MEDS: ACETAMINOPHEN 650 MG/20 ML UDC- SA PATIENTS-PAIN ONLY GT PRN (01:49)
[2021-05-20] MEDS: ALBUTEROL FS 2.5 MG/0.5 ML VIAL.NEB NEB SCH ×4 (02:05→19:48)
[2021-05-20] MEDS: IPRATROPIUM NEB FS 0.5 MG/2.5 ML AMPUL.NEB NEB SCH ×4 (02:05→19:48)
[2021-05-20] MEDS: POLYVINYL ALCOHOL 15 ML BOTTLE OP SCH ×4 (05:40→23:26)
--- NOTE | 2021-05-20 06:02 | NUR ---
Patient is awake most of the night ,no distress noted.
[2021-05-20] MEDS: NEPRO 1,000 ML BOTTLE GT PRN (06:56)
[2021-05-20] MEDS: BISACODYL SUPP (10 MG) 10 MG/SUPP.RECT SUPP.RECT RC PRN (06:57)
[2021-05-20 07:36] VITALS: BP 153/99
[2021-05-20] MEDS: HYDROGEN PEROXIDE 480 ML BOTTLE TP SCH ×2 (08:21→19:48)
[2021-05-20] MEDS: VITAMINS A AND D 56.7 GM TUBE TP SCH ×3 (09:00→21:17)
[2021-05-20] MEDS ORDERED: LIDOCAINE 1%-EPI 1:100,000 20 ML VIAL TP ONE (09:00)
[2021-05-20] MEDS: NEOMY SULF/BACITRAC ZN/POLY 15 GM TUBE TP SCH (09:00)
[2021-05-20] MEDS: Z GUARD REMEDY 4 OZ OINT TP SCH ×2 (09:00→21:17)
[2021-05-20] MEDS: DAKINS QUARTER STRENGTH (0.125%) 480 ML BOTTLE TOP SCH (09:00)
[2021-05-20] MEDS ORDERED: SILVER NITRATE APPLICATOR 1 EA BOX TP ONE (09:00)
[2021-05-20] MEDS: POVIDONE-IODINE OINT 28.4 GM TUBE TP SCH ×6 (09:00)
[2021-05-20] MEDS: ARGININE/GLUTAMINE/CALCIUM BMB 1 EACH POWD.PACK GT SCH ×2 (09:00→17:01)
[2021-05-20] MEDS: FOLIC ACID 1 MG TABLET GT SCH (09:51)
[2021-05-20] MEDS: DOCUSATE SODIUM LIQ 100 MG/10 ML UDC GT SCH ×2 (09:51→17:01)
[2021-05-20] MEDS: LORATADINE 10 MG TABLET GT SCH (09:51)
[2021-05-20] MEDS: FERROUS SULFATE - FOR SA ONLY 330 MG/7.5 ML UDC GT SCH ×2 (09:51→17:01)
[2021-05-20] MEDS: HYDROCODONE/APAP 5/325MG TABLET GT SCH (09:51)
[2021-05-20] MEDS: TIMOLOL 0.5% SOLN OPHTH 5 ML BOTTLE EACHEYE SCH ×2 (09:51→17:01)
[2021-05-20] MEDS: BICALUTAMIDE 50 MG TABLET GT SCH (09:51)
[2021-05-20] MEDS: BACLOFEN (10 MG) 10 MG TABLET GT SCH (09:51)
[2021-05-20] MEDS: PYRIDOXINE HCL 50 MG TABLET GT SCH (09:52)
[2021-05-20] MEDS: PANTOPRAZOLE 40 MG/PACK PACK GT SCH (09:52)
[2021-05-20] MEDS: MULTIVIT W/MINERALS 1 TAB TABLET GT SCH (09:52)
[2021-05-20] MEDS: PROSOURCE / PROSTAT (PYXIS) 30 ML UDC GT SCH ×4 (09:52→21:17)
[2021-05-20] MEDS: LISINOPRIL (5MG) 5 MG TABLET GT SCH (09:52)
[2021-05-20] MEDS: NA PHOS,M-B/NA PHOS,DI-BA 1 EA ENEMA RC PRN (13:42)
[2021-05-20 13:51] VITALS: BP 139/86
[2021-05-20] MEDS: LEVOFLOXACIN 750 MG /D5W 150ML 750 MG in PREMIX 1 EA IV SCH (14:58)
--- NOTE | 2021-05-20 15:00 | NUR ---
BRITTNI Clark debrided L hip wound, with minimal bleeding noted. Patient tolerated procedure, no facial grimacing observed.
[2021-05-20] MEDS: LATANOPROST EYE DROP 0.005% 2.5 ML BOTTLE EACHEYE SCH (21:17)
[2021-05-20] MEDS: ATORVASTATIN 40 MG TABLET GT SCH (21:17)
[2021-05-21 00:17] VITALS: BP 110/76
[2021-05-21] MEDS: IPRATROPIUM NEB FS 0.5 MG/2.5 ML AMPUL.NEB NEB SCH ×4 (01:32→20:25)
[2021-05-21] MEDS: ALBUTEROL FS 2.5 MG/0.5 ML VIAL.NEB NEB SCH ×4 (01:32→20:25)
[2021-05-21] MEDS: POLYVINYL ALCOHOL 15 ML BOTTLE OP SCH ×3 (05:16→17:07)
--- NOTE | 2021-05-21 07:07 | NUR ---
Patient continue to have hematuria during the shift.Will monitor and will endorse.
[2021-05-21 07:40] VITALS: BP 131/70
[2021-05-21] MEDS: HYDROGEN PEROXIDE 480 ML BOTTLE TP SCH ×2 (08:40→20:25)
[2021-05-21] MEDS: NEOMY SULF/BACITRAC ZN/POLY 15 GM TUBE TP SCH (09:00)
[2021-05-21] MEDS: VITAMINS A AND D 56.7 GM TUBE TP SCH ×3 (09:00→21:27)
[2021-05-21] MEDS: Z GUARD REMEDY 4 OZ OINT TP SCH ×2 (09:00→21:27)
[2021-05-21] MEDS: DAKINS QUARTER STRENGTH (0.125%) 480 ML BOTTLE TOP SCH (09:00)
[2021-05-21] MEDS: POVIDONE-IODINE OINT 28.4 GM TUBE TP SCH ×6 (09:00)
[2021-05-21] MEDS: LORATADINE 10 MG TABLET GT SCH (09:42)
[2021-05-21] MEDS: [UNRECOGNIZED DRUG - OTHER] GT SCH (09:42)
[2021-05-21] MEDS: FOLIC ACID 1 MG TABLET GT SCH (09:42)
[2021-05-21] MEDS: DOCUSATE SODIUM LIQ 100 MG/10 ML UDC GT SCH ×2 (09:42→17:07)
[2021-05-21] MEDS: TIMOLOL 0.5% SOLN OPHTH 5 ML BOTTLE EACHEYE SCH ×2 (09:42→17:07)
[2021-05-21] MEDS: ARGININE/GLUTAMINE/CALCIUM BMB 1 EACH POWD.PACK GT SCH ×2 (09:42→17:07)
[2021-05-21] MEDS: BACLOFEN (10 MG) 10 MG TABLET GT SCH (09:42)
[2021-05-21] MEDS: FERROUS SULFATE - FOR SA ONLY 330 MG/7.5 ML UDC GT SCH ×2 (09:42→17:07)
[2021-05-21] MEDS: BICALUTAMIDE 50 MG TABLET GT SCH (09:42)
[2021-05-21] MEDS: HYDROCODONE/APAP 5/325MG TABLET GT SCH (09:43)
[2021-05-21] MEDS: PYRIDOXINE HCL 50 MG TABLET GT SCH (09:43)
[2021-05-21] MEDS: LISINOPRIL (5MG) 5 MG TABLET GT SCH (09:43)
[2021-05-21] MEDS: PANTOPRAZOLE 40 MG/PACK PACK GT SCH (09:43)
[2021-05-21] MEDS: PROSOURCE / PROSTAT (PYXIS) 30 ML UDC GT SCH ×4 (09:43→21:27)
[2021-05-21] MEDS: MULTIVIT W/MINERALS 1 TAB TABLET GT SCH (09:43)
[2021-05-21 13:45] VITALS: BP 128/78
--- NOTE | 2021-05-21 14:00 | NUR ---
Informed Dr. Sullivan during IDT that patient's hematuria is very heavy. Patient S/P blood transfusion on 05/19/21 with no follow-up CBC. Dr. Sullivan ordered CBC for Monday05/24/21. Order carried out.
--- NOTE | 2021-05-21 15:08 | NUR ---
INTERDISCIPLINARY PLAN OF CARE CONFERENCE took place today. The patients sister, Shae [phone] was called to participate in the meeting. However, call went to voicemail and SW left call back number. Dr. Sullivan and Interdisciplinary team discussed the plan of care in detail. Current orders as well as treatments and medications were reviewed. See other disciplines IDT notes for further details.
[2021-05-21] MEDS: LEVOFLOXACIN 750 MG /D5W 150ML 750 MG in PREMIX 1 EA IV SCH (15:45)
[2021-05-21] MEDS: NEPRO 1,000 ML BOTTLE GT PRN (18:43)
[2021-05-21 20:09] VITALS: BP 136/82
[2021-05-21] MEDS: ATORVASTATIN 40 MG TABLET GT SCH (21:27)
[2021-05-21] MEDS: LATANOPROST EYE DROP 0.005% 2.5 ML BOTTLE EACHEYE SCH (21:27)
[2021-05-22 00:06] VITALS: BP 116/68
[2021-05-22] MEDS: POLYVINYL ALCOHOL 15 ML BOTTLE OP SCH ×5 (00:23→23:15)
[2021-05-22] MEDS: ALBUTEROL FS 2.5 MG/0.5 ML VIAL.NEB NEB SCH ×4 (01:30→19:57)
[2021-05-22] MEDS: IPRATROPIUM NEB FS 0.5 MG/2.5 ML AMPUL.NEB NEB SCH ×4 (01:30→19:57)
--- NOTE | 2021-05-22 06:32 | NUR ---
Patient with heavy hematuria via andres catheter draining to the urinary bag approximately 1300 ml during the shift. Patient vital signs stable. Will continue to monitor closely and will endorse.
[2021-05-22 08:00] VITALS: BP 107/56
[2021-05-22] MEDS: HYDROGEN PEROXIDE 480 ML BOTTLE TP SCH ×2 (08:15→23:38)
[2021-05-22] MEDS: POVIDONE-IODINE OINT 28.4 GM TUBE TP SCH ×6 (09:00)
[2021-05-22] MEDS: NEOMY SULF/BACITRAC ZN/POLY 15 GM TUBE TP SCH (09:00)
[2021-05-22] MEDS: Z GUARD REMEDY 4 OZ OINT TP SCH ×2 (09:00→21:21)
[2021-05-22] MEDS: VITAMINS A AND D 56.7 GM TUBE TP SCH ×3 (09:00→21:21)
[2021-05-22] MEDS: DAKINS QUARTER STRENGTH (0.125%) 480 ML BOTTLE TOP SCH (09:00)
[2021-05-22] MEDS: HYDROCODONE/APAP 5/325MG TABLET GT SCH (09:14)
[2021-05-22] MEDS: LORATADINE 10 MG TABLET GT SCH (09:14)
[2021-05-22] MEDS: DOCUSATE SODIUM LIQ 100 MG/10 ML UDC GT SCH ×2 (09:14→16:27)
[2021-05-22] MEDS: BICALUTAMIDE 50 MG TABLET GT SCH (09:14)
[2021-05-22] MEDS: FOLIC ACID 1 MG TABLET GT SCH (09:14)
[2021-05-22] MEDS: BACLOFEN (10 MG) 10 MG TABLET GT SCH (09:14)
[2021-05-22] MEDS: ARGININE/GLUTAMINE/CALCIUM BMB 1 EACH POWD.PACK GT SCH ×2 (09:14→16:27)
[2021-05-22] MEDS: FERROUS SULFATE - FOR SA ONLY 330 MG/7.5 ML UDC GT SCH ×2 (09:14→16:27)
[2021-05-22] MEDS: TIMOLOL 0.5% SOLN OPHTH 5 ML BOTTLE EACHEYE SCH ×2 (09:14→16:27)
[2021-05-22] MEDS: LISINOPRIL (5MG) 5 MG TABLET GT SCH (09:15)
[2021-05-22] MEDS: PROSOURCE / PROSTAT (PYXIS) 30 ML UDC GT SCH ×4 (09:15→21:21)
[2021-05-22] MEDS: PYRIDOXINE HCL 50 MG TABLET GT SCH (09:15)
[2021-05-22] MEDS: MULTIVIT W/MINERALS 1 TAB TABLET GT SCH (09:15)
[2021-05-22] MEDS: PANTOPRAZOLE 40 MG/PACK PACK GT SCH (09:15)
[2021-05-22 12:00] VITALS: BP 123/62
--- NOTE | 2021-05-22 13:05 | NUR ---
Pt seen and examined by Dr. Santillan. Pt still noted with hematuria from andres catheter. No new order given. Pt kept comfortable in bed, no SOB/ no distress noted.
[2021-05-22] MEDS: LEVOFLOXACIN 750 MG /D5W 150ML 750 MG in PREMIX 1 EA IV SCH (14:06)
[2021-05-22] MEDS: NEPRO 1,000 ML BOTTLE GT PRN (16:28)
[2021-05-22] MEDS: ATORVASTATIN 40 MG TABLET GT SCH (21:21)
[2021-05-22] MEDS: LATANOPROST EYE DROP 0.005% 2.5 ML BOTTLE EACHEYE SCH (21:21)
[2021-05-22 21:33] VITALS: BP 123/75
[2021-05-23 00:20] VITALS: BP 129/67
[2021-05-23] MEDS: ALBUTEROL FS 2.5 MG/0.5 ML VIAL.NEB NEB SCH ×4 (01:51→19:45)
[2021-05-23] MEDS: IPRATROPIUM NEB FS 0.5 MG/2.5 ML AMPUL.NEB NEB SCH ×4 (01:51→19:45)
[2021-05-23] MEDS: POLYVINYL ALCOHOL 15 ML BOTTLE OP SCH ×3 (05:04→17:15)
[2021-05-23 08:00] VITALS: BP 143/57
[2021-05-23] MEDS: HYDROCODONE/APAP 5/325MG TABLET GT SCH (09:00)
[2021-05-23] MEDS: LISINOPRIL (5MG) 5 MG TABLET GT SCH (09:00)
[2021-05-23] MEDS: MULTIVIT W/MINERALS 1 TAB TABLET GT SCH (09:00)
[2021-05-23] MEDS: PROSOURCE / PROSTAT (PYXIS) 30 ML UDC GT SCH ×4 (09:00→20:48)
[2021-05-23] MEDS: PANTOPRAZOLE 40 MG/PACK PACK GT SCH (09:00)
[2021-05-23] MEDS: VITAMINS A AND D 56.7 GM TUBE TP SCH ×3 (09:00→20:48)
[2021-05-23] MEDS: FERROUS SULFATE - FOR SA ONLY 330 MG/7.5 ML UDC GT SCH ×2 (09:00→17:15)
[2021-05-23] MEDS: NEOMY SULF/BACITRAC ZN/POLY 15 GM TUBE TP SCH (09:00)
[2021-05-23] MEDS: DAKINS QUARTER STRENGTH (0.125%) 480 ML BOTTLE TOP SCH (09:00)
[2021-05-23] MEDS: BICALUTAMIDE 50 MG TABLET GT SCH (09:00)
[2021-05-23] MEDS: TIMOLOL 0.5% SOLN OPHTH 5 ML BOTTLE EACHEYE SCH ×2 (09:00→17:15)
[2021-05-23] MEDS: FOLIC ACID 1 MG TABLET GT SCH (09:00)
[2021-05-23] MEDS: DOCUSATE SODIUM LIQ 100 MG/10 ML UDC GT SCH ×2 (09:00→17:15)
[2021-05-23] MEDS: [UNRECOGNIZED DRUG - OTHER] GT SCH (09:00)
[2021-05-23] MEDS: Z GUARD REMEDY 4 OZ OINT TP SCH ×2 (09:00→20:48)
[2021-05-23] MEDS: POVIDONE-IODINE OINT 28.4 GM TUBE TP SCH ×6 (09:00)
[2021-05-23] MEDS: PYRIDOXINE HCL 50 MG TABLET GT SCH (09:00)
[2021-05-23] MEDS: ARGININE/GLUTAMINE/CALCIUM BMB 1 EACH POWD.PACK GT SCH ×2 (09:00→17:15)
[2021-05-23] MEDS: LORATADINE 10 MG TABLET GT SCH (09:00)
[2021-05-23] MEDS: BACLOFEN (10 MG) 10 MG TABLET GT SCH (09:00)
[2021-05-23] MEDS: HYDROGEN PEROXIDE 480 ML BOTTLE TP SCH ×2 (09:16→19:45)
[2021-05-23 12:07] VITALS: BP 134/63
[2021-05-23] MEDS: LEVOFLOXACIN 750 MG /D5W 150ML 750 MG in PREMIX 1 EA IV SCH (15:34)
[2021-05-23] MEDS: NEPRO 1,000 ML BOTTLE GT PRN (16:57)
--- NOTE | 2021-05-23 18:21 | NUR ---
Patient on vent, tolerating well, suctioned as needed, kept HOB elevated at all times to prevent aspiration. Currently on IV ATB therapy (levaquin 750 mg IV daily ) total of 2 weeks. Midline to left forearm, patent and intact, dressing changed. No adverse reactions noted. Kumar catheter draining to bloody output, no distress noted. Patient kept safe and comfortable.
[2021-05-23 21:08] VITALS: BP 114/67
[2021-05-23] MEDS: LATANOPROST EYE DROP 0.005% 2.5 ML BOTTLE EACHEYE SCH (21:32)
[2021-05-23] MEDS: ATORVASTATIN 40 MG TABLET GT SCH (21:32)
[2021-05-24] MEDS: POLYVINYL ALCOHOL 15 ML BOTTLE OP SCH ×5 (00:10→23:26)
[2021-05-24] MEDS: ALBUTEROL FS 2.5 MG/0.5 ML VIAL.NEB NEB SCH ×4 (01:48→20:19)
[2021-05-24] MEDS: IPRATROPIUM NEB FS 0.5 MG/2.5 ML AMPUL.NEB NEB SCH ×4 (01:48→20:19)
[2021-05-24 06:59] LABS: BASOPHILS % (AUTO) 0.3 % (0.0-2.0); EOSINOPHILS % (AUTO) 2.1 % (0.0-6.0); HEMATOCRIT 24 % (39-51); HEMOGLOBIN 7.5 g/dL (13.5-17.5); LYMPHOCYTES # (AUTO) 0.9 K/uL (0.8-4.8); LYMPHOCYTES % (AUTO) 14.1 % (20.0-44.0); MEAN CORPUSCULAR HGB CONC 31 g/dl (31.0-36.0); MEAN CORPUSCULAR VOLUME 92 fL (80-96); MONOCYTES # (AUTO) 0.8 K/uL (0.1-1.30); MONOCYTES % (AUTO) 11.5 % (2.0-12.0); NEUTROPHILS # (AUTO) 4.8 K/uL (1.8-8.9); PLATELET COUNT (AUTO) 249 K/uL (150-450); RED BLOOD CELL COUNT(AUTO) 2.63 MIL/uL (4.5-6.0); WHITE BLOOD COUNT (AUTO) 6.7 K/uL (4.3-11.0)
[2021-05-24 07:19] VITALS: BP 115/62
[2021-05-24] MEDS: LORATADINE 10 MG TABLET GT SCH (08:47)
[2021-05-24] MEDS: BICALUTAMIDE 50 MG TABLET GT SCH (08:47)
[2021-05-24] MEDS: FOLIC ACID 1 MG TABLET GT SCH (08:48)
[2021-05-24] MEDS: FERROUS SULFATE - FOR SA ONLY 330 MG/7.5 ML UDC GT SCH ×2 (08:48→17:16)
[2021-05-24] MEDS: DOCUSATE SODIUM LIQ 100 MG/10 ML UDC GT SCH ×2 (08:48→17:16)
[2021-05-24] MEDS: ARGININE/GLUTAMINE/CALCIUM BMB 1 EACH POWD.PACK GT SCH ×2 (08:51→17:17)
[2021-05-24] MEDS: BACLOFEN (10 MG) 10 MG TABLET GT SCH (08:59)
[2021-05-24] MEDS: HYDROCODONE/APAP 5/325MG TABLET GT SCH (09:02)
[2021-05-24] MEDS: LISINOPRIL (5MG) 5 MG TABLET GT SCH (09:03)
[2021-05-24] MEDS: PYRIDOXINE HCL 50 MG TABLET GT SCH (09:03)
[2021-05-24] MEDS: MULTIVIT W/MINERALS 1 TAB TABLET GT SCH (09:03)
[2021-05-24] MEDS: PANTOPRAZOLE 40 MG/PACK PACK GT SCH (09:03)
[2021-05-24] MEDS: PROSOURCE / PROSTAT (PYXIS) 30 ML UDC GT SCH ×4 (09:03→21:02)
[2021-05-24] MEDS: HYDROGEN PEROXIDE 480 ML BOTTLE TP SCH ×2 (09:15→20:19)
[2021-05-24] MEDS: TIMOLOL 0.5% SOLN OPHTH 5 ML BOTTLE EACHEYE SCH ×2 (09:47→17:16)
[2021-05-24] MEDS: POVIDONE-IODINE OINT 28.4 GM TUBE TP SCH ×6 (09:51→09:56)
[2021-05-24] MEDS: Z GUARD REMEDY 4 OZ OINT TP SCH ×2 (09:56→21:02)
[2021-05-24] MEDS: VITAMINS A AND D 56.7 GM TUBE TP SCH ×3 (09:56→21:02)
[2021-05-24] MEDS: NEOMY SULF/BACITRAC ZN/POLY 15 GM TUBE TP SCH (09:56)
[2021-05-24] MEDS: DAKINS QUARTER STRENGTH (0.125%) 480 ML BOTTLE TOP SCH (10:00)
--- NOTE | 2021-05-24 10:10 | NUR ---
Relayed CBC result to Dr. Santillan, no new order given.
[2021-05-24 13:02] VITALS: BP 109/60
[2021-05-24] MEDS: LEVOFLOXACIN 750 MG /D5W 150ML 750 MG in PREMIX 1 EA IV SCH (15:00)
--- NOTE | 2021-05-24 15:18 | NUR ---
Virtual rounds with Jennifer Porras NP new order given to recheck BMP in am 05/25/21 d/t elevated BUN, Crea on previous test, requested.
[2021-05-24] MEDS: ACETAMINOPHEN 650 MG/20 ML UDC- SA PATIENTS-PAIN ONLY GT PRN (17:23)
[2021-05-24 20:15] VITALS: BP 114/67
[2021-05-24] MEDS: ATORVASTATIN 40 MG TABLET GT SCH (21:02)
[2021-05-24] MEDS: LATANOPROST EYE DROP 0.005% 2.5 ML BOTTLE EACHEYE SCH (21:02)
[2021-05-25] MEDS: IPRATROPIUM NEB FS 0.5 MG/2.5 ML AMPUL.NEB NEB SCH ×4 (02:12→19:37)
[2021-05-25] MEDS: ALBUTEROL FS 2.5 MG/0.5 ML VIAL.NEB NEB SCH ×4 (02:12→19:36)
[2021-05-25] MEDS: POLYVINYL ALCOHOL 15 ML BOTTLE OP SCH ×4 (05:35→23:45)
[2021-05-25 07:11] LABS: CALCIUM, SERUM 9.1 mg/dL (8.5-10.1); CREATININE 0.8 mg/dL (0.6-1.3); POTASSIUM 3.1 mmol/L (3.5-5.1)
[2021-05-25 07:18] VITALS: BP 100/53
--- NOTE | 2021-05-25 08:30 | NUR ---
Seen and examined resident, reviewed BMP result, gave order to increase water flush to 400 cc every 4 hrs for hydration and to supplement potassium 3.1 with KCL 40 meq via GT x 1 now, repeat BMP on 05/28/21. Will continue to monitor.
[2021-05-25] MEDS: Z GUARD REMEDY 4 OZ OINT TP SCH ×2 (09:00→21:23)
[2021-05-25] MEDS: VITAMINS A AND D 56.7 GM TUBE TP SCH ×3 (09:00→21:24)
[2021-05-25] MEDS: POVIDONE-IODINE OINT 28.4 GM TUBE TP SCH ×6 (09:00)
[2021-05-25] MEDS: HYDROCODONE/APAP 5/325MG TABLET GT SCH (09:00)
[2021-05-25] MEDS: TIMOLOL 0.5% SOLN OPHTH 5 ML BOTTLE EACHEYE SCH ×2 (09:00→16:38)
[2021-05-25] MEDS: DAKINS QUARTER STRENGTH (0.125%) 480 ML BOTTLE TOP SCH (09:00)
[2021-05-25] MEDS: LISINOPRIL (5MG) 5 MG TABLET GT SCH (09:00)
[2021-05-25] MEDS ORDERED: POTASSIUM CHLORIDE 20 MEQ POWDER PACKET GT ONE (09:30)
--- NOTE | 2021-05-25 09:30 | NUR ---
Seen and examined by Dr. Sullivan, no new order given.
[2021-05-25] MEDS: FERROUS SULFATE - FOR SA ONLY 330 MG/7.5 ML UDC GT SCH ×2 (09:38→16:38)
[2021-05-25] MEDS: BICALUTAMIDE 50 MG TABLET GT SCH (09:38)
[2021-05-25] MEDS: LORATADINE 10 MG TABLET GT SCH (09:38)
[2021-05-25] MEDS: DOCUSATE SODIUM LIQ 100 MG/10 ML UDC GT SCH ×2 (09:38→16:38)
[2021-05-25] MEDS: PROSOURCE / PROSTAT (PYXIS) 30 ML UDC GT SCH ×4 (09:39→21:23)
[2021-05-25] MEDS: [UNRECOGNIZED DRUG - OTHER] GT SCH (09:39)
[2021-05-25] MEDS: ARGININE/GLUTAMINE/CALCIUM BMB 1 EACH POWD.PACK GT SCH ×2 (09:39→16:38)
[2021-05-25] MEDS: PANTOPRAZOLE 40 MG/PACK PACK GT SCH (09:39)
[2021-05-25] MEDS: FOLIC ACID 1 MG TABLET GT SCH (09:39)
[2021-05-25] MEDS: BACLOFEN (10 MG) 10 MG TABLET GT SCH (09:39)
[2021-05-25] MEDS: PYRIDOXINE HCL 50 MG TABLET GT SCH (09:40)
[2021-05-25] MEDS: MULTIVIT W/MINERALS 1 TAB TABLET GT SCH (09:40)
[2021-05-25] MEDS: HYDROGEN PEROXIDE 480 ML BOTTLE TP SCH ×2 (09:50→21:00)
[2021-05-25 11:41] VITALS: BP 111/49
[2021-05-25] MEDS: LEVOFLOXACIN (250MG) 250 MG TABLET PO SCH (15:00)
[2021-05-25] MEDS: ACETAMINOPHEN 650 MG/20 ML UDC- SA PATIENTS-PAIN ONLY GT PRN (17:27)
[2021-05-25 19:13] VITALS: BP 100/54
[2021-05-25] MEDS: ATORVASTATIN 40 MG TABLET GT SCH (21:24)
[2021-05-25] MEDS: LATANOPROST EYE DROP 0.005% 2.5 ML BOTTLE EACHEYE SCH (21:24)
[2021-05-26 00:09] VITALS: BP 116/67
[2021-05-26 00:12] VITALS: BP 116/67
[2021-05-26] MEDS: IPRATROPIUM NEB FS 0.5 MG/2.5 ML AMPUL.NEB NEB SCH ×4 (02:14→19:51)
[2021-05-26] MEDS: ALBUTEROL FS 2.5 MG/0.5 ML VIAL.NEB NEB SCH ×4 (02:14→19:51)
[2021-05-26] MEDS: POLYVINYL ALCOHOL 15 ML BOTTLE OP SCH ×3 (06:05→17:54)
[2021-05-26] MEDS: MAGNESIUM HYDROXIDE 30 ML UDC GT PRN (06:38)
[2021-05-26] MEDS: HYDROGEN PEROXIDE 480 ML BOTTLE TP SCH ×2 (07:51→19:51)
[2021-05-26 08:00] VITALS: BP 111/77
[2021-05-26] MEDS: PROSOURCE / PROSTAT (PYXIS) 30 ML UDC GT SCH ×4 (09:59→21:16)
[2021-05-26] MEDS: DAKINS QUARTER STRENGTH (0.125%) 480 ML BOTTLE TOP SCH (09:59)
[2021-05-26] MEDS: ARGININE/GLUTAMINE/CALCIUM BMB 1 EACH POWD.PACK GT SCH ×2 (09:59→17:04)
[2021-05-26] MEDS: DOCUSATE SODIUM LIQ 100 MG/10 ML UDC GT SCH ×2 (09:59→17:04)
[2021-05-26] MEDS: FERROUS SULFATE - FOR SA ONLY 330 MG/7.5 ML UDC GT SCH ×2 (09:59→17:04)
[2021-05-26] MEDS: LORATADINE 10 MG TABLET GT SCH (09:59)
[2021-05-26] MEDS: PYRIDOXINE HCL 50 MG TABLET GT SCH (09:59)
[2021-05-26] MEDS: PANTOPRAZOLE 40 MG/PACK PACK GT SCH (09:59)
[2021-05-26] MEDS: VITAMINS A AND D 56.7 GM TUBE TP SCH ×3 (09:59→21:16)
[2021-05-26] MEDS: TIMOLOL 0.5% SOLN OPHTH 5 ML BOTTLE EACHEYE SCH ×2 (09:59→17:04)
[2021-05-26] MEDS: MULTIVIT W/MINERALS 1 TAB TABLET GT SCH (09:59)
[2021-05-26] MEDS: HYDROCODONE/APAP 5/325MG TABLET GT SCH (09:59)
[2021-05-26] MEDS: Z GUARD REMEDY 4 OZ OINT TP SCH ×2 (09:59→21:16)
[2021-05-26] MEDS: BACLOFEN (10 MG) 10 MG TABLET GT SCH (09:59)
[2021-05-26] MEDS: FOLIC ACID 1 MG TABLET GT SCH (09:59)
[2021-05-26] MEDS: BICALUTAMIDE 50 MG TABLET GT SCH (09:59)
[2021-05-26] MEDS: LISINOPRIL (5MG) 5 MG TABLET GT SCH (09:59)
[2021-05-26] MEDS: POVIDONE-IODINE OINT 28.4 GM TUBE TP SCH ×6 (09:59)
[2021-05-26] MEDS: NEPRO 1,000 ML BOTTLE GT PRN (10:24)
[2021-05-26 12:15] VITALS: BP 115/65
[2021-05-26] MEDS: LEVOFLOXACIN (250MG) 250 MG TABLET PO SCH (15:02)
[2021-05-26] MEDS ORDERED: IV D5W 1,000 ML IV PRN ×2 (15:30→18:00)
--- NOTE | 2021-05-26 18:00 | NUR ---
Received a message from ANGELLA Porras, asking if anyone addressed patient's low K+ and high NA+, Informed her that Dr. Santillan reviewed BMP yesterday, gave an order for KCL supplement due to low K+ and increased water flushing and repeat BMP on Monday. ANGELLA Porras, thinks that patient probably need to have bolus of D5W at 50 cc/hr x 24 hours, order received from ANGELLA Porras. Resident's sister Shae informed.
[2021-05-26 19:15] VITALS: BP 118/71
[2021-05-26] MEDS: ATORVASTATIN 40 MG TABLET GT SCH (21:16)
[2021-05-26] MEDS: LATANOPROST EYE DROP 0.005% 2.5 ML BOTTLE EACHEYE SCH (21:16)
[2021-05-27] MEDS: POLYVINYL ALCOHOL 15 ML BOTTLE OP SCH ×5 (00:17→23:27)
[2021-05-27 00:30] VITALS: BP 105/60
[2021-05-27] MEDS: ALBUTEROL FS 2.5 MG/0.5 ML VIAL.NEB NEB SCH ×4 (01:56→20:35)
[2021-05-27] MEDS: IPRATROPIUM NEB FS 0.5 MG/2.5 ML AMPUL.NEB NEB SCH ×4 (01:56→20:35)
[2021-05-27 07:43] VITALS: BP 114/69
[2021-05-27] MEDS: TIMOLOL 0.5% SOLN OPHTH 5 ML BOTTLE EACHEYE SCH ×2 (09:07→17:18)
[2021-05-27] MEDS: LORATADINE 10 MG TABLET GT SCH (09:11)
[2021-05-27] MEDS: BICALUTAMIDE 50 MG TABLET GT SCH (09:11)
[2021-05-27] MEDS: DOCUSATE SODIUM LIQ 100 MG/10 ML UDC GT SCH ×2 (09:12→17:19)
[2021-05-27] MEDS: FOLIC ACID 1 MG TABLET GT SCH (09:13)
[2021-05-27] MEDS: FERROUS SULFATE - FOR SA ONLY 330 MG/7.5 ML UDC GT SCH ×2 (09:13→17:19)
[2021-05-27] MEDS: ARGININE/GLUTAMINE/CALCIUM BMB 1 EACH POWD.PACK GT SCH ×2 (09:14→17:20)
[2021-05-27] MEDS: BACLOFEN (10 MG) 10 MG TABLET GT SCH (09:14)
[2021-05-27] MEDS: [UNRECOGNIZED DRUG - OTHER] GT SCH (09:15)
[2021-05-27] MEDS: HYDROCODONE/APAP 5/325MG TABLET GT SCH (09:15)
[2021-05-27] MEDS: MULTIVIT W/MINERALS 1 TAB TABLET GT SCH (09:16)
[2021-05-27] MEDS: PYRIDOXINE HCL 50 MG TABLET GT SCH (09:16)
[2021-05-27] MEDS: PROSOURCE / PROSTAT (PYXIS) 30 ML UDC GT SCH ×4 (09:16→20:35)
[2021-05-27] MEDS: PANTOPRAZOLE 40 MG/PACK PACK GT SCH (09:16)
[2021-05-27] MEDS: LISINOPRIL (5MG) 5 MG TABLET GT SCH (09:16)
[2021-05-27] MEDS: HYDROGEN PEROXIDE 480 ML BOTTLE TP SCH ×2 (09:17→20:35)
[2021-05-27] MEDS: DAKINS QUARTER STRENGTH (0.125%) 480 ML BOTTLE TOP SCH (09:54)
[2021-05-27] MEDS: Z GUARD REMEDY 4 OZ OINT TP SCH ×2 (09:54→20:35)
[2021-05-27] MEDS: POVIDONE-IODINE OINT 28.4 GM TUBE TP SCH ×6 (09:54)
[2021-05-27] MEDS: VITAMINS A AND D 56.7 GM TUBE TP SCH ×3 (09:54→20:35)
--- NOTE | 2021-05-27 10:07 | NUR ---
Virtual rounds done by ANGELLA Porras, no new order given.
[2021-05-27 13:38] VITALS: BP 157/74
[2021-05-27] MEDS: NEPRO 1,000 ML BOTTLE GT PRN (17:21)
[2021-05-27 19:18] VITALS: BP 101/54
[2021-05-27] MEDS: ACETAMINOPHEN 650 MG/20 ML UDC- SA PATIENTS-FEVER ONLY GT PRN (19:20)
--- NOTE | 2021-05-27 19:42 | NUR ---
Patient with temp 101.8 HR 91 BP 101/54 RR 16 O2 sats 99% ,no respiratory distress.Patient still having hematuria. Notified Jailyn Zazueta NP ID with orders Urine culture,blood culture x2 ,sputum culture CXR. CBC and BMP in AM. Tylenol 650mg given via gt and cooling measures provided. Will carry out orders. Sister Shae made aware of patient condition and new orders. Addendum: 05/27/21 at 2014 by FACUNDO LOPEZ RN Vancomycin 1.25gm IV x1. Then on 05/28 @ Vancomycin 1gm 1V q 24 hrs per pharmacist. Merrem 500 mg IV q 12 x 5 days per protocol for fever. BMP daily and Vanco trough on 05/29 @ 1999.
--- NOTE | 2021-05-27 20:40 | NUR ---
RT SPUTUM SAMPLE OBTAINED BY RT, ROSALINDA MCKNIGHT.
[2021-05-27] MEDS ORDERED: VANCOMYCIN 1.25 GM in IV D5W 250 ML IV ONE (21:00)
[2021-05-27] MEDS: ATORVASTATIN 40 MG TABLET GT SCH (21:12)
[2021-05-27] MEDS: LATANOPROST EYE DROP 0.005% 2.5 ML BOTTLE EACHEYE SCH (21:12)
[2021-05-27] MEDS: MEROPENEM 500 MG in IV NS 0.9% 50 ML IV SCH (22:00)
[2021-05-27 23:59] VITALS: BP 121/57
[2021-05-28] VITALS (8 sets, daily range): BP systolic 97–125; BP diastolic 57–66
[2021-05-28] MEDS: IPRATROPIUM NEB FS 0.5 MG/2.5 ML AMPUL.NEB NEB SCH ×4 (02:02→20:40)
[2021-05-28] MEDS: ALBUTEROL FS 2.5 MG/0.5 ML VIAL.NEB NEB SCH ×4 (02:02→20:40)
[2021-05-28] MEDS: POLYVINYL ALCOHOL 15 ML BOTTLE OP SCH ×3 (05:31→18:02)
[2021-05-28] MEDS: MAGNESIUM HYDROXIDE 30 ML UDC GT PRN (06:14)
[2021-05-28] MEDS: BISACODYL SUPP (10 MG) 10 MG/SUPP.RECT SUPP.RECT RC PRN (06:15)
[2021-05-28 06:41] LABS: HEMATOCRIT 21 % (39-51); LYMPHOCYTES # (AUTO) 1.1 K/uL (0.8-4.8); MEAN CORPUSCULAR HGB CONC 32 g/dl (31.0-36.0)
[2021-05-28 07:19] LABS: BASOPHILS % (AUTO) 0.4 % (0.0-2.0); EOSINOPHILS % (AUTO) 3.7 % (0.0-6.0); LYMPHOCYTES % (AUTO) 17.6 % (20.0-44.0); MEAN CORPUSCULAR VOLUME 89 fL (80-96); MONOCYTES # (AUTO) 0.6 K/uL (0.1-1.30); MONOCYTES % (AUTO) 9.4 % (2.0-12.0); NEUTROPHILS # (AUTO) 4.2 K/uL (1.8-8.9); NEUTROPHILS % (AUTO) 68.9 % (43.0-81.0); PLATELET COUNT (AUTO) 253 K/uL (150-450); RED BLOOD CELL COUNT(AUTO) 2.33 MIL/uL (4.5-6.0)
[2021-05-28 07:23] LABS: HEMOGLOBIN 6.7 g/dL (13.5-17.5)
[2021-05-28 07:26] LABS: CALCIUM, SERUM 8.7 mg/dL (8.5-10.1); CREATININE 0.9 mg/dL (0.6-1.3); POTASSIUM 2.9 mmol/L (3.5-5.1)
--- NOTE | 2021-05-28 08:45 | NUR ---
Reported Hbg result 6.[address] Santillan with order to transfuse 1 unit of PRBC. Obtained consent for blood transfusion from patient's sister Shae witnessed by 2 licensed nurses. Order carried out.
[2021-05-28] MEDS: TIMOLOL 0.5% SOLN OPHTH 5 ML BOTTLE EACHEYE SCH ×2 (08:49→16:52)
[2021-05-28] MEDS: BICALUTAMIDE 50 MG TABLET GT SCH (08:49)
[2021-05-28] MEDS: LORATADINE 10 MG TABLET GT SCH (08:50)
[2021-05-28] MEDS: FOLIC ACID 1 MG TABLET GT SCH (08:50)
[2021-05-28] MEDS: DOCUSATE SODIUM LIQ 100 MG/10 ML UDC GT SCH ×2 (08:50→16:52)
[2021-05-28] MEDS: FERROUS SULFATE - FOR SA ONLY 330 MG/7.5 ML UDC GT SCH ×2 (08:50→16:52)
[2021-05-28] MEDS: BACLOFEN (10 MG) 10 MG TABLET GT SCH (08:51)
[2021-05-28] MEDS: HYDROCODONE/APAP 5/325MG TABLET GT SCH (08:52)
[2021-05-28] MEDS: PANTOPRAZOLE 40 MG/PACK PACK GT SCH (08:52)
[2021-05-28] MEDS: PYRIDOXINE HCL 50 MG TABLET GT SCH (08:52)
[2021-05-28] MEDS: LISINOPRIL (5MG) 5 MG TABLET GT SCH (08:52)
[2021-05-28] MEDS: MULTIVIT W/MINERALS 1 TAB TABLET GT SCH (08:52)
[2021-05-28] MEDS: PROSOURCE / PROSTAT (PYXIS) 30 ML UDC GT SCH ×4 (08:52→21:59)
[2021-05-28] MEDS: ARGININE/GLUTAMINE/CALCIUM BMB 1 EACH POWD.PACK GT SCH ×2 (08:54→16:54)
[2021-05-28] MEDS: HYDROGEN PEROXIDE 480 ML BOTTLE TP SCH ×2 (09:53→21:39)
[2021-05-28] MEDS: Z GUARD REMEDY 4 OZ OINT TP SCH ×2 (09:56→21:59)
[2021-05-28] MEDS: DAKINS QUARTER STRENGTH (0.125%) 480 ML BOTTLE TOP SCH (09:56)
[2021-05-28] MEDS: POVIDONE-IODINE OINT 28.4 GM TUBE TP SCH ×6 (09:56)
[2021-05-28] MEDS: VITAMINS A AND D 56.7 GM TUBE TP SCH ×3 (09:57→21:59)
[2021-05-28] MEDS: MEROPENEM 500 MG in IV NS 0.9% 50 ML IV SCH ×2 (10:06→22:00)
[2021-05-28 10:22] LABS: EOSINOPHILS % (MANUAL) 3 % (0-4); LYMPHOCYTES % (MANUAL) 18 % (16-48); MONOCYTES % (MANUAL) 7 % (0-11.0); NEUTROPHILS % (MANUAL) 72 (42-76)
[2021-05-28] MEDS: POTASSIUM CHLORIDE 20 MEQ POWDER PACKET GT SCH ×3 (11:37→13:45)
--- NOTE | 2021-05-28 13:45 | NUR ---
Blood transfusion started, blood checked by 2 licensed nurses. Patient stable in no s/s of respiratory distress, no reaction noted from BT.
[2021-05-28] MEDS: NEPRO 1,000 ML BOTTLE GT PRN (17:58)
[2021-05-28] MEDS: VANCOMYCIN 1 GM in IV D5W 250 ML IV SCH (21:00)
[2021-05-28] MEDS: ATORVASTATIN 40 MG TABLET GT SCH (21:59)
[2021-05-28] MEDS: LATANOPROST EYE DROP 0.005% 2.5 ML BOTTLE EACHEYE SCH (21:59)
[2021-05-28] MEDS: ONDANSETRON 4 MG TAB.RAPDIS GT PRN (22:49)
[2021-05-29] MEDS: POLYVINYL ALCOHOL 15 ML BOTTLE OP SCH ×4 (00:16→18:19)
[2021-05-29 01:09] VITALS: BP 108/57
[2021-05-29] MEDS: ALBUTEROL FS 2.5 MG/0.5 ML VIAL.NEB NEB SCH ×4 (02:34→20:01)
[2021-05-29] MEDS: IPRATROPIUM NEB FS 0.5 MG/2.5 ML AMPUL.NEB NEB SCH ×4 (02:34→20:01)
[2021-05-29 06:49] LABS: CALCIUM, SERUM 8.4 mg/dL (8.5-10.1); CREATININE 1.1 mg/dL (0.6-1.3); POTASSIUM 3.5 mmol/L (3.5-5.1)
[2021-05-29] MEDS: JEVITY 1.2 CAL 1,000 ML BOTTLE GT PRN ×2 (07:00→20:10)
[2021-05-29 07:33] VITALS: BP 119/68
[2021-05-29] MEDS: HYDROGEN PEROXIDE 480 ML BOTTLE TP SCH ×2 (07:51→21:10)
[2021-05-29] MEDS: LORATADINE 10 MG TABLET GT SCH (09:05)
[2021-05-29] MEDS: TIMOLOL 0.5% SOLN OPHTH 5 ML BOTTLE EACHEYE SCH ×2 (09:05→17:04)
[2021-05-29] MEDS: BICALUTAMIDE 50 MG TABLET GT SCH (09:05)
[2021-05-29] MEDS: DOCUSATE SODIUM LIQ 100 MG/10 ML UDC GT SCH ×2 (09:06→17:04)
[2021-05-29] MEDS: FERROUS SULFATE - FOR SA ONLY 330 MG/7.5 ML UDC GT SCH ×2 (09:06→17:04)
[2021-05-29] MEDS: BACLOFEN (10 MG) 10 MG TABLET GT SCH (09:06)
[2021-05-29] MEDS: FOLIC ACID 1 MG TABLET GT SCH (09:06)
[2021-05-29] MEDS: LISINOPRIL (5MG) 5 MG TABLET GT SCH (09:08)
[2021-05-29] MEDS: PYRIDOXINE HCL 50 MG TABLET GT SCH (09:08)
[2021-05-29] MEDS: MULTIVIT W/MINERALS 1 TAB TABLET GT SCH (09:08)
[2021-05-29] MEDS: PROSOURCE / PROSTAT (PYXIS) 30 ML UDC GT SCH ×4 (09:08→20:46)
[2021-05-29] MEDS: PANTOPRAZOLE 40 MG/PACK PACK GT SCH (09:08)
[2021-05-29] MEDS: ARGININE/GLUTAMINE/CALCIUM BMB 1 EACH POWD.PACK GT SCH ×2 (09:09→17:04)
[2021-05-29] MEDS: VITAMINS A AND D 56.7 GM TUBE TP SCH ×3 (09:09→20:46)
[2021-05-29] MEDS: POVIDONE-IODINE OINT 28.4 GM TUBE TP SCH ×6 (09:09)
[2021-05-29] MEDS: DAKINS QUARTER STRENGTH (0.125%) 480 ML BOTTLE TOP SCH (09:09)
[2021-05-29] MEDS: Z GUARD REMEDY 4 OZ OINT TP SCH ×2 (09:09→20:46)
[2021-05-29] MEDS: [UNRECOGNIZED DRUG - OTHER] GT SCH (09:09)
[2021-05-29] MEDS: HYDROCODONE/APAP 5/325MG TABLET GT SCH (09:10)
--- NOTE | 2021-05-29 10:22 | NUR ---
Notified Dr. Santillan of BMP result- BUN 89. Order obtained to start pt on IV NS @ 75ml/hr x 3 days and to do BMP x 3 days. Order noted and carried out. Pt's sister Shae notified of order.
[2021-05-29] MEDS: IV NS 0.9% 1,000 ML IV SCH ×2 (10:51→23:50)
[2021-05-29] MEDS: MEROPENEM 500 MG in IV NS 0.9% 50 ML IV SCH ×2 (10:52→21:04)
[2021-05-29 13:07] VITALS: BP 109/57
--- NOTE | 2021-05-29 13:11 | NUR ---
Relayed preliminary blood culture, sputum and final urine culture result to Jailyn OCCUP THER. Pharmacy wanted to verify duration of IV antibiotic for pt. Pt currently has order for Vanco and Merrem IV x 5 days per protocol. Per Jailyn, she wants to wait for final culture results before giving duration of IV ATB.
[2021-05-29 20:26] VITALS: BP 106/52
[2021-05-29] MEDS: VANCOMYCIN 1 GM in IV D5W 250 ML IV SCH (21:00)
[2021-05-29] MEDS: ATORVASTATIN 40 MG TABLET GT SCH (21:08)
[2021-05-29] MEDS: LATANOPROST EYE DROP 0.005% 2.5 ML BOTTLE EACHEYE SCH (21:08)
[2021-05-30] MEDS: POLYVINYL ALCOHOL 15 ML BOTTLE OP SCH ×4 (00:04→17:04)
[2021-05-30 00:53] VITALS: BP 115/60
[2021-05-30] MEDS: IPRATROPIUM NEB FS 0.5 MG/2.5 ML AMPUL.NEB NEB SCH ×4 (02:19→19:52)
[2021-05-30] MEDS: ALBUTEROL FS 2.5 MG/0.5 ML VIAL.NEB NEB SCH ×4 (02:19→19:52)
[2021-05-30] MEDS: HYDROGEN PEROXIDE 480 ML BOTTLE TP SCH ×2 (07:42→21:23)
[2021-05-30 07:47] VITALS: BP 120/72
[2021-05-30] MEDS: DAKINS QUARTER STRENGTH (0.125%) 480 ML BOTTLE TOP SCH (09:00)
[2021-05-30] MEDS: LORATADINE 10 MG TABLET GT SCH (09:00)
[2021-05-30] MEDS: FOLIC ACID 1 MG TABLET GT SCH (09:00)
[2021-05-30] MEDS: FERROUS SULFATE - FOR SA ONLY 330 MG/7.5 ML UDC GT SCH ×2 (09:00→17:03)
[2021-05-30] MEDS: MULTIVIT W/MINERALS 1 TAB TABLET GT SCH (09:00)
[2021-05-30] MEDS: LISINOPRIL (5MG) 5 MG TABLET GT SCH (09:00)
[2021-05-30] MEDS: VITAMINS A AND D 56.7 GM TUBE TP SCH ×3 (09:00→20:27)
[2021-05-30] MEDS: TIMOLOL 0.5% SOLN OPHTH 5 ML BOTTLE EACHEYE SCH ×2 (09:00→17:03)
[2021-05-30] MEDS: Z GUARD REMEDY 4 OZ OINT TP SCH ×2 (09:00→20:27)
[2021-05-30] MEDS: HYDROCODONE/APAP 5/325MG TABLET GT SCH (09:00)
[2021-05-30] MEDS: BICALUTAMIDE 50 MG TABLET GT SCH (09:00)
[2021-05-30] MEDS: DOCUSATE SODIUM LIQ 100 MG/10 ML UDC GT SCH ×2 (09:00→17:03)
[2021-05-30] MEDS: POVIDONE-IODINE OINT 28.4 GM TUBE TP SCH ×6 (09:00)
[2021-05-30] MEDS: PANTOPRAZOLE 40 MG/PACK PACK GT SCH (09:00)
[2021-05-30] MEDS: ARGININE/GLUTAMINE/CALCIUM BMB 1 EACH POWD.PACK GT SCH ×2 (09:00→16:48)
[2021-05-30] MEDS: PYRIDOXINE HCL 50 MG TABLET GT SCH (09:00)
[2021-05-30] MEDS: BACLOFEN (10 MG) 10 MG TABLET GT SCH (09:00)
[2021-05-30] MEDS: PROSOURCE / PROSTAT (PYXIS) 30 ML UDC GT SCH ×4 (09:00→20:27)
[2021-05-30] MEDS: MEROPENEM 500 MG in IV NS 0.9% 50 ML IV SCH ×2 (10:00→22:00)
[2021-05-30] MEDS ORDERED: VANCOMYCIN 0.75 GM in IV D5W 250 ML IV SCH (11:00)
[2021-05-30 11:13] LABS: CREATININE 1.2 mg/dL (0.6-1.3); POTASSIUM 3.9 mmol/L (3.5-5.1)
[2021-05-30] MEDS: IV NS 0.9% 1,000 ML IV SCH (13:10)
--- NOTE | 2021-05-30 16:14 | NUR ---
Sent respiratory culture with gram stain result to ANGELLA Coffman, awaiting for call back.
[2021-05-30 20:06] VITALS: BP 115/70
[2021-05-30] MEDS: LATANOPROST EYE DROP 0.005% 2.5 ML BOTTLE EACHEYE SCH (21:35)
[2021-05-30] MEDS: ATORVASTATIN 40 MG TABLET GT SCH (21:35)
[2021-05-31] MEDS: POLYVINYL ALCOHOL 15 ML BOTTLE OP SCH ×4 (00:21→17:51)
[2021-05-31] MEDS: ALBUTEROL FS 2.5 MG/0.5 ML VIAL.NEB NEB SCH ×4 (01:55→20:31)
[2021-05-31] MEDS: IPRATROPIUM NEB FS 0.5 MG/2.5 ML AMPUL.NEB NEB SCH ×4 (01:55→20:31)
[2021-05-31] MEDS: IV NS 0.9% 1,000 ML IV SCH ×2 (02:30→15:50)
[2021-05-31] MEDS: JEVITY 1.2 CAL 1,000 ML BOTTLE GT PRN (04:42)
[2021-05-31 07:20] LABS: CREATININE 1.1 mg/dL (0.6-1.3); POTASSIUM 4.1 mmol/L (3.5-5.1)
[2021-05-31 07:33] VITALS: BP 102/64
[2021-05-31] MEDS: HYDROGEN PEROXIDE 480 ML BOTTLE TP SCH ×2 (07:50→20:31)
[2021-05-31] MEDS: LISINOPRIL (5MG) 5 MG TABLET GT SCH (09:00)
[2021-05-31] MEDS: BICALUTAMIDE 50 MG TABLET GT SCH (09:19)
[2021-05-31] MEDS: LORATADINE 10 MG TABLET GT SCH (09:19)
[2021-05-31] MEDS: TIMOLOL 0.5% SOLN OPHTH 5 ML BOTTLE EACHEYE SCH ×2 (09:19→17:49)
[2021-05-31] MEDS: DOCUSATE SODIUM LIQ 100 MG/10 ML UDC GT SCH ×2 (09:20→17:49)
[2021-05-31] MEDS: FOLIC ACID 1 MG TABLET GT SCH (09:20)
[2021-05-31] MEDS: FERROUS SULFATE - FOR SA ONLY 330 MG/7.5 ML UDC GT SCH ×2 (09:20→17:51)
[2021-05-31] MEDS: BACLOFEN (10 MG) 10 MG TABLET GT SCH (09:23)
[2021-05-31] MEDS: ARGININE/GLUTAMINE/CALCIUM BMB 1 EACH POWD.PACK GT SCH ×2 (09:23→17:51)
[2021-05-31] MEDS: [UNRECOGNIZED DRUG - OTHER] GT SCH (09:24)
[2021-05-31] MEDS: HYDROCODONE/APAP 5/325MG TABLET GT SCH (09:25)
[2021-05-31] MEDS: PANTOPRAZOLE 40 MG/PACK PACK GT SCH (09:26)
[2021-05-31] MEDS: PYRIDOXINE HCL 50 MG TABLET GT SCH (09:26)
[2021-05-31] MEDS: MULTIVIT W/MINERALS 1 TAB TABLET GT SCH (09:26)
[2021-05-31] MEDS: PROSOURCE / PROSTAT (PYXIS) 30 ML UDC GT SCH ×4 (09:26→21:06)
[2021-05-31] MEDS: DAKINS QUARTER STRENGTH (0.125%) 480 ML BOTTLE TOP SCH (10:00)
[2021-05-31] MEDS: VITAMINS A AND D 56.7 GM TUBE TP SCH ×3 (10:00→21:06)
[2021-05-31] MEDS: POVIDONE-IODINE OINT 28.4 GM TUBE TP SCH ×6 (10:00)
[2021-05-31] MEDS: Z GUARD REMEDY 4 OZ OINT TP SCH ×2 (10:00→21:06)
--- NOTE | 2021-05-31 10:51 | NUR ---
Sent a message to ANGELLA Coffman to review respiratory culture result. She said she will review it today.
[2021-05-31] MEDS: TOBRAMYCIN 80 MG/2 ML VIAL INH SCH ×2 (11:00→21:00)
--- NOTE | 2021-05-31 11:00 | NUR ---
Xenia Zazueta NP gave order to D/C Shelton and Leatha. Start Tobramycin 80 mg inhalation q 12hrs x 12 days.
--- NOTE | 2021-05-31 13:10 | NUR ---
RT: HORTICULTURAL FARMWORKERROSALINDA ARGUETA TOLD ME TO GIVE TROBOMYCIN TO PATIENT IN AEROSOL FORM. IT SHOWS ON EMR INJECTION BUT SHE SAID SHE CHECKED WITH PHARMACY THAT IT IS OKAY GIVEN BY AEROSOL. Addendum: 05/31/21 at 1313 by MARIA LUISA REYES RT Amended: Links added.
[2021-05-31 13:38] VITALS: BP 112/66
--- NOTE | 2021-05-31 18:30 | NUR ---
Seen and examined by Jennifer Porras NP no new order given.
[2021-05-31 20:56] VITALS: BP 106/51
[2021-05-31] MEDS: LATANOPROST EYE DROP 0.005% 2.5 ML BOTTLE EACHEYE SCH (21:06)
[2021-05-31] MEDS: ATORVASTATIN 40 MG TABLET GT SCH (21:07)
[2021-06-01] MEDS: POLYVINYL ALCOHOL 15 ML BOTTLE OP SCH ×4 (00:57→17:40)
[2021-06-01 01:28] VITALS: BP 132/75
[2021-06-01] MEDS: ALBUTEROL FS 2.5 MG/0.5 ML VIAL.NEB NEB SCH ×4 (01:59→19:31)
[2021-06-01] MEDS: IPRATROPIUM NEB FS 0.5 MG/2.5 ML AMPUL.NEB NEB SCH ×4 (01:59→19:30)
[2021-06-01] MEDS: JEVITY 1.2 CAL 1,000 ML BOTTLE GT PRN (05:37)
[2021-06-01 07:20] LABS: CALCIUM, SERUM 8.2 mg/dL (8.5-10.1); CREATININE 0.9 mg/dL (0.6-1.3); POTASSIUM 4.4 mmol/L (3.5-5.1)
[2021-06-01 07:32] VITALS: BP 128/73
[2021-06-01] MEDS: IV NS 0.9% 1,000 ML IV SCH (08:30)
[2021-06-01] MEDS: LORATADINE 10 MG TABLET GT SCH (08:37)
[2021-06-01] MEDS: BICALUTAMIDE 50 MG TABLET GT SCH (08:37)
[2021-06-01] MEDS: TIMOLOL 0.5% SOLN OPHTH 5 ML BOTTLE EACHEYE SCH ×2 (08:37→17:38)
[2021-06-01] MEDS: DOCUSATE SODIUM LIQ 100 MG/10 ML UDC GT SCH ×2 (08:38→17:39)
[2021-06-01] MEDS: FERROUS SULFATE - FOR SA ONLY 330 MG/7.5 ML UDC GT SCH ×2 (08:38→17:39)
[2021-06-01] MEDS: FOLIC ACID 1 MG TABLET GT SCH (08:43)
[2021-06-01] MEDS: BACLOFEN (10 MG) 10 MG TABLET GT SCH (08:46)
[2021-06-01] MEDS: HYDROCODONE/APAP 5/325MG TABLET GT SCH (08:46)
[2021-06-01] MEDS: MULTIVIT W/MINERALS 1 TAB TABLET GT SCH (08:47)
[2021-06-01] MEDS: PROSOURCE / PROSTAT (PYXIS) 30 ML UDC GT SCH ×4 (08:47→20:59)
[2021-06-01] MEDS: PYRIDOXINE HCL 50 MG TABLET GT SCH (08:47)
[2021-06-01] MEDS: LISINOPRIL (5MG) 5 MG TABLET GT SCH (08:47)
[2021-06-01] MEDS: PANTOPRAZOLE 40 MG/PACK PACK GT SCH (08:47)
[2021-06-01] MEDS: ARGININE/GLUTAMINE/CALCIUM BMB 1 EACH POWD.PACK GT SCH ×2 (08:49→17:40)
--- NOTE | 2021-06-01 09:00 | NUR ---
Seen and examined by Dr. Sullivan, no new order given.
[2021-06-01] MEDS: HYDROGEN PEROXIDE 480 ML BOTTLE TP SCH ×2 (09:30→20:11)
[2021-06-01] MEDS: Z GUARD REMEDY 4 OZ OINT TP SCH ×2 (09:52→20:59)
[2021-06-01] MEDS: DAKINS QUARTER STRENGTH (0.125%) 480 ML BOTTLE TOP SCH (09:52)
[2021-06-01] MEDS: POVIDONE-IODINE OINT 28.4 GM TUBE TP SCH ×6 (09:52)
[2021-06-01] MEDS: VITAMINS A AND D 56.7 GM TUBE TP SCH ×3 (09:52→20:59)
[2021-06-01] MEDS: TOBRAMYCIN 80 MG/2 ML VIAL INH SCH ×2 (09:55→20:11)
[2021-06-01 13:37] VITALS: BP 126/72
[2021-06-01 20:07] VITALS: BP 118/61
[2021-06-01] MEDS: LATANOPROST EYE DROP 0.005% 2.5 ML BOTTLE EACHEYE SCH (21:06)
[2021-06-01] MEDS: ATORVASTATIN 40 MG TABLET GT SCH (21:06)
[2021-06-02] MEDS: POLYVINYL ALCOHOL 15 ML BOTTLE OP SCH ×5 (00:28→23:34)
[2021-06-02] MEDS: IPRATROPIUM NEB FS 0.5 MG/2.5 ML AMPUL.NEB NEB SCH ×4 (01:47→19:51)
[2021-06-02] MEDS: ALBUTEROL FS 2.5 MG/0.5 ML VIAL.NEB NEB SCH ×4 (01:47→19:51)
[2021-06-02 07:25] VITALS: BP 98/64
[2021-06-02 07:27] LABS: CALCIUM, SERUM 8.1 mg/dL (8.5-10.1); CREATININE 0.8 mg/dL (0.6-1.3)
[2021-06-02] MEDS: HYDROGEN PEROXIDE 480 ML BOTTLE TP SCH ×2 (08:10→19:52)
[2021-06-02] MEDS: TOBRAMYCIN 80 MG/2 ML VIAL INH SCH ×2 (08:52→20:12)
[2021-06-02] MEDS: DAKINS QUARTER STRENGTH (0.125%) 480 ML BOTTLE TOP SCH (09:00)
[2021-06-02] MEDS: LORATADINE 10 MG TABLET GT SCH (09:00)
[2021-06-02] MEDS: FOLIC ACID 1 MG TABLET GT SCH (09:00)
[2021-06-02] MEDS: POVIDONE-IODINE OINT 28.4 GM TUBE TP SCH ×6 (09:00)
[2021-06-02] MEDS: LISINOPRIL (5MG) 5 MG TABLET GT SCH (09:00)
[2021-06-02] MEDS: TIMOLOL 0.5% SOLN OPHTH 5 ML BOTTLE EACHEYE SCH ×2 (09:00→16:55)
[2021-06-02] MEDS: VITAMINS A AND D 56.7 GM TUBE TP SCH ×3 (09:00→21:20)
[2021-06-02] MEDS: BICALUTAMIDE 50 MG TABLET GT SCH (09:00)
[2021-06-02] MEDS: DOCUSATE SODIUM LIQ 100 MG/10 ML UDC GT SCH ×2 (09:00→16:55)
[2021-06-02] MEDS: Z GUARD REMEDY 4 OZ OINT TP SCH ×2 (09:00→21:20)
[2021-06-02] MEDS: [UNRECOGNIZED DRUG - OTHER] GT SCH (09:00)
[2021-06-02] MEDS: ARGININE/GLUTAMINE/CALCIUM BMB 1 EACH POWD.PACK GT SCH ×2 (09:00→16:55)
[2021-06-02] MEDS: BACLOFEN (10 MG) 10 MG TABLET GT SCH (09:00)
[2021-06-02] MEDS: FERROUS SULFATE - FOR SA ONLY 330 MG/7.5 ML UDC GT SCH ×2 (09:00→16:55)
[2021-06-02] MEDS: PANTOPRAZOLE 40 MG/PACK PACK GT SCH (09:37)
[2021-06-02] MEDS: PROSOURCE / PROSTAT (PYXIS) 30 ML UDC GT SCH ×4 (09:37→21:20)
[2021-06-02] MEDS: PYRIDOXINE HCL 50 MG TABLET GT SCH (09:37)
[2021-06-02] MEDS: HYDROCODONE/APAP 5/325MG TABLET GT SCH (09:37)
[2021-06-02] MEDS: MULTIVIT W/MINERALS 1 TAB TABLET GT SCH (09:37)
[2021-06-02 12:12] VITALS: BP 110/68
[2021-06-02] MEDS: JEVITY 1.2 CAL 1,000 ML BOTTLE GT PRN (16:55)
[2021-06-02 20:26] VITALS: BP 99/69
[2021-06-02] MEDS: ATORVASTATIN 40 MG TABLET GT SCH (21:23)
[2021-06-02] MEDS: LATANOPROST EYE DROP 0.005% 2.5 ML BOTTLE EACHEYE SCH (21:23)
[2021-06-02] MEDS: ACETAMINOPHEN 650 MG/20 ML UDC- SA PATIENTS-PAIN ONLY GT PRN (21:59)
[2021-06-03] MEDS: IPRATROPIUM NEB FS 0.5 MG/2.5 ML AMPUL.NEB NEB SCH ×4 (01:54→19:56)
[2021-06-03] MEDS: ALBUTEROL FS 2.5 MG/0.5 ML VIAL.NEB NEB SCH ×4 (01:54→19:56)
[2021-06-03] MEDS: HYDROCODONE/APAP 5/325MG TABLET PO PRN ×2 (04:37→19:16)
[2021-06-03] MEDS: POLYVINYL ALCOHOL 15 ML BOTTLE OP SCH ×4 (05:28→23:29)
[2021-06-03 07:37] VITALS: BP_SYST 127; BP_SYST 137; BP_DIAS 54; BP_DIAS 64
[2021-06-03] MEDS: HYDROGEN PEROXIDE 480 ML BOTTLE TP SCH ×2 (08:08→19:56)
[2021-06-03] MEDS: VITAMINS A AND D 56.7 GM TUBE TP SCH ×3 (09:00→20:30)
[2021-06-03] MEDS: BICALUTAMIDE 50 MG TABLET GT SCH (09:24)
[2021-06-03] MEDS: LORATADINE 10 MG TABLET GT SCH (09:24)
[2021-06-03] MEDS: TIMOLOL 0.5% SOLN OPHTH 5 ML BOTTLE EACHEYE SCH ×2 (09:24→16:27)
[2021-06-03] MEDS: FERROUS SULFATE - FOR SA ONLY 330 MG/7.5 ML UDC GT SCH ×2 (09:25→16:27)
[2021-06-03] MEDS: FOLIC ACID 1 MG TABLET GT SCH (09:25)
[2021-06-03] MEDS: DOCUSATE SODIUM LIQ 100 MG/10 ML UDC GT SCH ×2 (09:25→16:27)
[2021-06-03] MEDS: TOBRAMYCIN 80 MG/2 ML VIAL INH SCH ×2 (09:26→20:12)
[2021-06-03] MEDS: BACLOFEN (10 MG) 10 MG TABLET GT SCH (09:26)
[2021-06-03] MEDS: ARGININE/GLUTAMINE/CALCIUM BMB 1 EACH POWD.PACK GT SCH ×2 (09:26→16:27)
[2021-06-03] MEDS: PANTOPRAZOLE 40 MG/PACK PACK GT SCH (09:27)
[2021-06-03] MEDS: LISINOPRIL (5MG) 5 MG TABLET GT SCH (09:27)
[2021-06-03] MEDS: PROSOURCE / PROSTAT (PYXIS) 30 ML UDC GT SCH ×4 (09:27→20:30)
[2021-06-03] MEDS: HYDROCODONE/APAP 5/325MG TABLET GT SCH (09:27)
[2021-06-03] MEDS: PYRIDOXINE HCL 50 MG TABLET GT SCH (09:28)
[2021-06-03] MEDS: MULTIVIT W/MINERALS 1 TAB TABLET GT SCH (09:28)
[2021-06-03] MEDS: POVIDONE-IODINE OINT 28.4 GM TUBE TP SCH ×6 (10:00)
[2021-06-03] MEDS: DAKINS QUARTER STRENGTH (0.125%) 480 ML BOTTLE TOP SCH (10:00)
[2021-06-03] MEDS: Z GUARD REMEDY 4 OZ OINT TP SCH ×2 (10:00→20:30)
--- NOTE | 2021-06-03 11:00 | NUR ---
Seen and examined by BRITTNI Clark, reviewed treatment orders in the L knee, L and R hip. New order given to apply small piece of Xeroform and cover with foam dressing in the L knee daily x 14 days and no changes in the L and R hp treatment.
[2021-06-03 12:49] VITALS: BP 130/72
--- NOTE | 2021-06-03 14:36 | NUR ---
Seen and examined by Olman Porras, patient still with hematuria, new order given to do CBC in AM and OK to replace midline. Nursing supervisor research kennel informed.
[2021-06-03] MEDS: JEVITY 1.2 CAL 1,000 ML BOTTLE GT PRN (14:37)
[2021-06-03 19:22] VITALS: BP 107/58
--- NOTE | 2021-06-03 19:35 | NUR ---
New midline inserted by midline nurse on left upper arm,dressing intact with good blood return.Patient tolerated procedure well.
[2021-06-03] MEDS: LATANOPROST EYE DROP 0.005% 2.5 ML BOTTLE EACHEYE SCH (21:13)
[2021-06-03] MEDS: ATORVASTATIN 40 MG TABLET GT SCH (21:13)
[2021-06-03 23:46] VITALS: BP 105/71
[2021-06-04] MEDS: IPRATROPIUM NEB FS 0.5 MG/2.5 ML AMPUL.NEB NEB SCH ×4 (02:07→20:10)
[2021-06-04] MEDS: ALBUTEROL FS 2.5 MG/0.5 ML VIAL.NEB NEB SCH ×4 (02:07→20:10)
[2021-06-04] MEDS: POLYVINYL ALCOHOL 15 ML BOTTLE OP SCH ×3 (05:27→17:01)
[2021-06-04 07:26] VITALS: BP 124/85
[2021-06-04 07:32] LABS: BASOPHILS % (AUTO) 0.4 % (0.0-2.0); EOSINOPHILS % (AUTO) 4.3 % (0.0-6.0); HEMATOCRIT 25 % (39-51); LYMPHOCYTES # (AUTO) 1.1 K/uL (0.8-4.8); LYMPHOCYTES % (AUTO) 14.4 % (20.0-44.0); MEAN CORPUSCULAR HGB CONC 32 g/dl (31.0-36.0); MEAN CORPUSCULAR VOLUME 90 fL (80-96); MONOCYTES # (AUTO) 0.7 K/uL (0.1-1.30); NEUTROPHILS # (AUTO) 5.6 K/uL (1.8-8.9); NEUTROPHILS % (AUTO) 71.9 % (43.0-81.0); PLATELET COUNT (AUTO) 327 K/uL (150-450); RED BLOOD CELL COUNT(AUTO) 2.77 MIL/uL (4.5-6.0); WHITE BLOOD COUNT (AUTO) 7.8 K/uL (4.3-11.0)
[2021-06-04 08:09] LABS: CREATININE 0.7 mg/dL (0.6-1.3); POTASSIUM 4.2 mmol/L (3.5-5.1)
[2021-06-04] MEDS: HYDROGEN PEROXIDE 480 ML BOTTLE TP SCH ×2 (08:15→20:10)
[2021-06-04] MEDS: TOBRAMYCIN 80 MG/2 ML VIAL INH SCH ×2 (09:00→21:12)
[2021-06-04] MEDS: TIMOLOL 0.5% SOLN OPHTH 5 ML BOTTLE EACHEYE SCH ×2 (09:01→16:57)
[2021-06-04] MEDS: FERROUS SULFATE - FOR SA ONLY 330 MG/7.5 ML UDC GT SCH ×2 (09:02→16:59)
[2021-06-04] MEDS: LORATADINE 10 MG TABLET GT SCH (09:02)
[2021-06-04] MEDS: DOCUSATE SODIUM LIQ 100 MG/10 ML UDC GT SCH ×2 (09:02→16:58)
[2021-06-04] MEDS: BICALUTAMIDE 50 MG TABLET GT SCH (09:02)
[2021-06-04] MEDS: FOLIC ACID 1 MG TABLET GT SCH (09:03)
[2021-06-04] MEDS: ARGININE/GLUTAMINE/CALCIUM BMB 1 EACH POWD.PACK GT SCH ×2 (09:04→16:59)
[2021-06-04] MEDS: BACLOFEN (10 MG) 10 MG TABLET GT SCH (09:04)
[2021-06-04] MEDS: HYDROCODONE/APAP 5/325MG TABLET GT SCH (09:05)
[2021-06-04] MEDS: [UNRECOGNIZED DRUG - OTHER] GT SCH (09:05)
[2021-06-04] MEDS: PROSOURCE / PROSTAT (PYXIS) 30 ML UDC GT SCH ×4 (09:06→20:50)
[2021-06-04] MEDS: PANTOPRAZOLE 40 MG/PACK PACK GT SCH (09:06)
[2021-06-04] MEDS: MULTIVIT W/MINERALS 1 TAB TABLET GT SCH (09:06)
[2021-06-04] MEDS: PYRIDOXINE HCL 50 MG TABLET GT SCH (09:06)
[2021-06-04] MEDS: LISINOPRIL (5MG) 5 MG TABLET GT SCH (09:06)
--- NOTE | 2021-06-04 09:30 | NUR ---
Lab results relayed to ANGELLA Porras. She ordered to repeat CBC on 06/07/21 and check stool for OB x 2.
[2021-06-04] MEDS: VITAMINS A AND D 56.7 GM TUBE TP SCH ×3 (09:35→20:50)
[2021-06-04] MEDS: POVIDONE-IODINE OINT 28.4 GM TUBE TP SCH ×6 (09:35)
[2021-06-04] MEDS: DAKINS QUARTER STRENGTH (0.125%) 480 ML BOTTLE TOP SCH (09:35)
[2021-06-04] MEDS: Z GUARD REMEDY 4 OZ OINT TP SCH ×2 (09:35→20:50)
--- NOTE | 2021-06-04 11:20 | NUR ---
Informed Dr Santillan of pt's Hgb 8.0 Hct 25 today, urine slightly blood-tinged. No new order.
[2021-06-04 12:27] VITALS: BP 131/71
[2021-06-04] MEDS: JEVITY 1.2 CAL 1,000 ML BOTTLE GT PRN (16:59)
[2021-06-04] MEDS: MAGNESIUM HYDROXIDE 30 ML UDC GT PRN (17:03)
[2021-06-04 19:12] VITALS: BP 120/74
[2021-06-04] MEDS: ACETAMINOPHEN 650 MG/20 ML UDC- SA PATIENTS-FEVER ONLY GT PRN (20:51)
[2021-06-04] MEDS: LATANOPROST EYE DROP 0.005% 2.5 ML BOTTLE EACHEYE SCH (21:03)
[2021-06-04] MEDS: ATORVASTATIN 40 MG TABLET GT SCH (21:03)
[2021-06-04 23:45] VITALS: BP 106/58
[2021-06-05] MEDS: POLYVINYL ALCOHOL 15 ML BOTTLE OP SCH ×4 (00:12→17:20)
[2021-06-05] MEDS: IPRATROPIUM NEB FS 0.5 MG/2.5 ML AMPUL.NEB NEB SCH ×4 (02:32→19:45)
[2021-06-05] MEDS: ALBUTEROL FS 2.5 MG/0.5 ML VIAL.NEB NEB SCH ×4 (02:32→19:45)
[2021-06-05 02:44] LABS: OCCULT BLOOD STOOL NEGATIVE (NEGATIVE)
[2021-06-05 07:31] VITALS: BP 109/69
[2021-06-05] MEDS: HYDROGEN PEROXIDE 480 ML BOTTLE TP SCH ×2 (08:10→19:45)
[2021-06-05] MEDS: MULTIVIT W/MINERALS 1 TAB TABLET GT SCH (08:39)
[2021-06-05] MEDS: PROSOURCE / PROSTAT (PYXIS) 30 ML UDC GT SCH ×4 (08:39→21:37)
[2021-06-05] MEDS: DOCUSATE SODIUM LIQ 100 MG/10 ML UDC GT SCH ×2 (08:39→17:19)
[2021-06-05] MEDS: FERROUS SULFATE - FOR SA ONLY 330 MG/7.5 ML UDC GT SCH ×2 (08:39→17:20)
[2021-06-05] MEDS: BACLOFEN (10 MG) 10 MG TABLET GT SCH (08:43)
[2021-06-05] MEDS: ARGININE/GLUTAMINE/CALCIUM BMB 1 EACH POWD.PACK GT SCH ×2 (08:43→17:20)
[2021-06-05] MEDS: LORATADINE 10 MG TABLET GT SCH (08:43)
[2021-06-05] MEDS: FOLIC ACID 1 MG TABLET GT SCH (08:43)
[2021-06-05] MEDS: BICALUTAMIDE 50 MG TABLET GT SCH (08:43)
[2021-06-05] MEDS: HYDROCODONE/APAP 5/325MG TABLET GT SCH (08:44)
[2021-06-05] MEDS: PANTOPRAZOLE 40 MG/PACK PACK GT SCH (08:44)
[2021-06-05] MEDS: PYRIDOXINE HCL 50 MG TABLET GT SCH (08:47)
[2021-06-05] MEDS: POVIDONE-IODINE OINT 28.4 GM TUBE TP SCH ×6 (09:00)
[2021-06-05] MEDS: LISINOPRIL (5MG) 5 MG TABLET GT SCH (09:00)
[2021-06-05] MEDS: TIMOLOL 0.5% SOLN OPHTH 5 ML BOTTLE EACHEYE SCH ×2 (09:00→17:19)
[2021-06-05] MEDS: Z GUARD REMEDY 4 OZ OINT TP SCH ×2 (09:00→21:37)
[2021-06-05] MEDS: VITAMINS A AND D 56.7 GM TUBE TP SCH ×3 (09:00→21:37)
[2021-06-05] MEDS: DAKINS QUARTER STRENGTH (0.125%) 480 ML BOTTLE TOP SCH (09:00)
[2021-06-05] MEDS: TOBRAMYCIN 80 MG/2 ML VIAL INH SCH ×2 (09:45→20:03)
[2021-06-05 11:50] VITALS: BP 123/80
[2021-06-05 17:17] LABS: OCCULT BLOOD STOOL NEGATIVE (NEGATIVE)
[2021-06-05 19:42] VITALS: BP 122/74
[2021-06-05] MEDS: LATANOPROST EYE DROP 0.005% 2.5 ML BOTTLE EACHEYE SCH (21:37)
[2021-06-05] MEDS: ATORVASTATIN 40 MG TABLET GT SCH (21:37)
[2021-06-05] MEDS: ACETAMINOPHEN 650 MG/20 ML UDC- SA PATIENTS-PAIN ONLY GT PRN (22:30)
[2021-06-06 00:04] VITALS: BP 116/69
[2021-06-06] MEDS: POLYVINYL ALCOHOL 15 ML BOTTLE OP SCH ×4 (00:07→17:13)
[2021-06-06] MEDS: ALBUTEROL FS 2.5 MG/0.5 ML VIAL.NEB NEB SCH ×4 (01:32→19:51)
[2021-06-06] MEDS: IPRATROPIUM NEB FS 0.5 MG/2.5 ML AMPUL.NEB NEB SCH ×4 (01:32→19:51)
[2021-06-06] MEDS: JEVITY 1.2 CAL 1,000 ML BOTTLE GT PRN (05:28)
[2021-06-06 08:00] VITALS: BP 135/75
[2021-06-06] MEDS: HYDROGEN PEROXIDE 480 ML BOTTLE TP SCH ×2 (08:34→20:22)
[2021-06-06] MEDS: TOBRAMYCIN 80 MG/2 ML VIAL INH SCH ×2 (08:44→20:22)
[2021-06-06] MEDS: POVIDONE-IODINE OINT 28.4 GM TUBE TP SCH ×6 (09:00)
[2021-06-06] MEDS: HYDROCODONE/APAP 5/325MG TABLET GT SCH (09:00)
[2021-06-06] MEDS: Z GUARD REMEDY 4 OZ OINT TP SCH ×2 (09:00→21:27)
[2021-06-06] MEDS: PANTOPRAZOLE 40 MG/PACK PACK GT SCH (09:00)
[2021-06-06] MEDS: VITAMINS A AND D 56.7 GM TUBE TP SCH ×3 (09:00→21:28)
[2021-06-06] MEDS: LORATADINE 10 MG TABLET GT SCH (09:00)
[2021-06-06] MEDS: DAKINS QUARTER STRENGTH (0.125%) 480 ML BOTTLE TOP SCH (09:00)
[2021-06-06] MEDS: DOCUSATE SODIUM LIQ 100 MG/10 ML UDC GT SCH ×2 (09:00→17:13)
[2021-06-06] MEDS: LISINOPRIL (5MG) 5 MG TABLET GT SCH (09:00)
[2021-06-06] MEDS: MULTIVIT W/MINERALS 1 TAB TABLET GT SCH (09:00)
[2021-06-06] MEDS: [UNRECOGNIZED DRUG - OTHER] GT SCH (09:00)
[2021-06-06] MEDS: TIMOLOL 0.5% SOLN OPHTH 5 ML BOTTLE EACHEYE SCH ×2 (09:00→17:13)
[2021-06-06] MEDS: PROSOURCE / PROSTAT (PYXIS) 30 ML UDC GT SCH ×4 (09:00→21:27)
[2021-06-06] MEDS: BICALUTAMIDE 50 MG TABLET GT SCH (09:00)
[2021-06-06] MEDS: FERROUS SULFATE - FOR SA ONLY 330 MG/7.5 ML UDC GT SCH ×2 (09:00→17:13)
[2021-06-06] MEDS: BACLOFEN (10 MG) 10 MG TABLET GT SCH (09:00)
[2021-06-06] MEDS: PYRIDOXINE HCL 50 MG TABLET GT SCH (09:00)
[2021-06-06] MEDS: FOLIC ACID 1 MG TABLET GT SCH (09:00)
[2021-06-06] MEDS: ARGININE/GLUTAMINE/CALCIUM BMB 1 EACH POWD.PACK GT SCH ×2 (09:00→17:13)
--- NOTE | 2021-06-06 15:00 | NUR ---
Patient had episodes of elevated HR 120, patient was given norco as needed, effective, patient repositioned. Patient also had episodes of SOB, suctioned as needed, HOB kept elevated 45 degrees to prevent aspiration and ease breathing. On vent, tolerating well. Assessed by RT and treatment given on tobramycin 80 mg inhalation, tx in progress. No adverse reactions noted. Kept patient soft and comfortable. Closely monitored.
--- NOTE | 2021-06-06 19:00 | NUR ---
Latest HR 108 at this time, no resp. distress noted. Kept safe and comfortable.
[2021-06-06 20:13] VITALS: BP 121/73
[2021-06-06] MEDS: ATORVASTATIN 40 MG TABLET GT SCH (21:28)
[2021-06-06] MEDS: LATANOPROST EYE DROP 0.005% 2.5 ML BOTTLE EACHEYE SCH (21:28)
[2021-06-07] MEDS: POLYVINYL ALCOHOL 15 ML BOTTLE OP SCH ×4 (00:23→17:08)
[2021-06-07 00:49] VITALS: BP 127/73
[2021-06-07] MEDS: IPRATROPIUM NEB FS 0.5 MG/2.5 ML AMPUL.NEB NEB SCH ×4 (01:06→19:57)
[2021-06-07] MEDS: ALBUTEROL FS 2.5 MG/0.5 ML VIAL.NEB NEB SCH ×4 (01:06→19:57)
[2021-06-07 07:59] LABS: BASOPHILS % (AUTO) 0.5 % (0.0-2.0); EOSINOPHILS % (AUTO) 6.6 % (0.0-6.0); HEMATOCRIT 24 % (39-51); HEMOGLOBIN 7.6 g/dL (13.5-17.5); LYMPHOCYTES # (AUTO) 1.1 K/uL (0.8-4.8); LYMPHOCYTES % (AUTO) 17.5 % (20.0-44.0); MEAN CORPUSCULAR HGB CONC 32 g/dl (31.0-36.0); MEAN CORPUSCULAR VOLUME 91 fL (80-96); MONOCYTES # (AUTO) 0.7 K/uL (0.1-1.30); MONOCYTES % (AUTO) 10.7 % (2.0-12.0); NEUTROPHILS # (AUTO) 3.9 K/uL (1.8-8.9); NEUTROPHILS % (AUTO) 64.7 % (43.0-81.0); PLATELET COUNT (AUTO) 291 K/uL (150-450); RED BLOOD CELL COUNT(AUTO) 2.63 MIL/uL (4.5-6.0); WHITE BLOOD COUNT (AUTO) 6.1 K/uL (4.3-11.0)
[2021-06-07 08:00] VITALS: BP 128/71
[2021-06-07] MEDS: HYDROGEN PEROXIDE 480 ML BOTTLE TP SCH ×2 (09:00→19:58)
[2021-06-07] MEDS: TIMOLOL 0.5% SOLN OPHTH 5 ML BOTTLE EACHEYE SCH ×2 (09:45→16:54)
[2021-06-07] MEDS: DOCUSATE SODIUM LIQ 100 MG/10 ML UDC GT SCH ×2 (09:45→16:55)
[2021-06-07] MEDS: BICALUTAMIDE 50 MG TABLET GT SCH (09:45)
[2021-06-07] MEDS: LORATADINE 10 MG TABLET GT SCH (09:45)
[2021-06-07] MEDS: FOLIC ACID 1 MG TABLET GT SCH (09:46)
[2021-06-07] MEDS: FERROUS SULFATE - FOR SA ONLY 330 MG/7.5 ML UDC GT SCH ×2 (09:46→16:55)
[2021-06-07] MEDS: ARGININE/GLUTAMINE/CALCIUM BMB 1 EACH POWD.PACK GT SCH ×2 (09:47→16:56)
[2021-06-07] MEDS: HYDROCODONE/APAP 5/325MG TABLET GT SCH (09:48)
[2021-06-07] MEDS: BACLOFEN (10 MG) 10 MG TABLET GT SCH (09:48)
[2021-06-07] MEDS: PROSOURCE / PROSTAT (PYXIS) 30 ML UDC GT SCH ×4 (09:49→21:24)
[2021-06-07] MEDS: PANTOPRAZOLE 40 MG/PACK PACK GT SCH (09:49)
[2021-06-07] MEDS: PYRIDOXINE HCL 50 MG TABLET GT SCH (09:49)
[2021-06-07] MEDS: MULTIVIT W/MINERALS 1 TAB TABLET GT SCH (09:49)
[2021-06-07] MEDS: LISINOPRIL (5MG) 5 MG TABLET GT SCH (09:49)
[2021-06-07] MEDS: POVIDONE-IODINE OINT 28.4 GM TUBE TP SCH ×6 (10:30)
[2021-06-07] MEDS: Z GUARD REMEDY 4 OZ OINT TP SCH ×2 (10:30→21:24)
[2021-06-07] MEDS: VITAMINS A AND D 56.7 GM TUBE TP SCH ×3 (10:30→21:24)
[2021-06-07] MEDS: DAKINS QUARTER STRENGTH (0.125%) 480 ML BOTTLE TOP SCH (10:30)
[2021-06-07] MEDS: JEVITY 1.2 CAL 1,000 ML BOTTLE GT PRN (14:07)
--- NOTE | 2021-06-07 19:00 | NUR ---
Seen by BAIT MAKER Jennifer Porras. Relayed CBC result to her. No new order at this time.
[2021-06-07 19:05] VITALS: BP 127/69
[2021-06-07] MEDS: LATANOPROST EYE DROP 0.005% 2.5 ML BOTTLE EACHEYE SCH (21:24)
[2021-06-07] MEDS: ATORVASTATIN 40 MG TABLET GT SCH (21:24)
[2021-06-08 00:03] VITALS: BP 125/78
[2021-06-08] MEDS: POLYVINYL ALCOHOL 15 ML BOTTLE OP SCH ×4 (00:11→16:41)
[2021-06-08] MEDS: ALBUTEROL FS 2.5 MG/0.5 ML VIAL.NEB NEB SCH ×4 (02:05→20:21)
[2021-06-08] MEDS: IPRATROPIUM NEB FS 0.5 MG/2.5 ML AMPUL.NEB NEB SCH ×4 (02:05→20:21)
[2021-06-08 07:29] VITALS: BP 129/65
[2021-06-08] MEDS: VITAMINS A AND D 56.7 GM TUBE TP SCH ×3 (09:00→21:00)
[2021-06-08] MEDS: Z GUARD REMEDY 4 OZ OINT TP SCH ×2 (09:00→21:00)
[2021-06-08] MEDS: POVIDONE-IODINE OINT 28.4 GM TUBE TP SCH ×6 (09:00)
[2021-06-08] MEDS: DAKINS QUARTER STRENGTH (0.125%) 480 ML BOTTLE TOP SCH (09:00)
[2021-06-08] MEDS: DOCUSATE SODIUM LIQ 100 MG/10 ML UDC GT SCH ×2 (09:24→16:41)
[2021-06-08] MEDS: FOLIC ACID 1 MG TABLET GT SCH (09:24)
[2021-06-08] MEDS: FERROUS SULFATE - FOR SA ONLY 330 MG/7.5 ML UDC GT SCH ×2 (09:24→16:41)
[2021-06-08] MEDS: LORATADINE 10 MG TABLET GT SCH (09:24)
[2021-06-08] MEDS: [UNRECOGNIZED DRUG - OTHER] GT SCH (09:24)
[2021-06-08] MEDS: BICALUTAMIDE 50 MG TABLET GT SCH (09:24)
[2021-06-08] MEDS: ARGININE/GLUTAMINE/CALCIUM BMB 1 EACH POWD.PACK GT SCH ×2 (09:24→16:41)
[2021-06-08] MEDS: TIMOLOL 0.5% SOLN OPHTH 5 ML BOTTLE EACHEYE SCH ×2 (09:24→16:41)
[2021-06-08] MEDS: BACLOFEN (10 MG) 10 MG TABLET GT SCH (09:24)
[2021-06-08] MEDS: PROSOURCE / PROSTAT (PYXIS) 30 ML UDC GT SCH ×4 (09:27→21:00)
[2021-06-08] MEDS: HYDROCODONE/APAP 5/325MG TABLET GT SCH (09:27)
[2021-06-08] MEDS: LISINOPRIL (5MG) 5 MG TABLET GT SCH (09:27)
[2021-06-08] MEDS: PYRIDOXINE HCL 50 MG TABLET GT SCH (09:27)
[2021-06-08] MEDS: PANTOPRAZOLE 40 MG/PACK PACK GT SCH (09:27)
[2021-06-08] MEDS: MULTIVIT W/MINERALS 1 TAB TABLET GT SCH (09:27)
[2021-06-08] MEDS: HYDROGEN PEROXIDE 480 ML BOTTLE TP SCH ×2 (09:38→20:21)
[2021-06-08 11:58] VITALS: BP 124/74
[2021-06-08] MEDS: JEVITY 1.2 CAL 1,000 ML BOTTLE GT PRN (17:01)
[2021-06-08 19:19] VITALS: BP 108/68
[2021-06-08] MEDS: LATANOPROST EYE DROP 0.005% 2.5 ML BOTTLE EACHEYE SCH (22:14)
[2021-06-08] MEDS: ATORVASTATIN 40 MG TABLET GT SCH (22:15)
[2021-06-09] MEDS: POLYVINYL ALCOHOL 15 ML BOTTLE OP SCH ×4 (00:23→17:42)
[2021-06-09] MEDS: HYDROCODONE/APAP 5/325MG TABLET PO PRN (00:28)
[2021-06-09 00:39] VITALS: BP 109/62
[2021-06-09] MEDS: ALBUTEROL FS 2.5 MG/0.5 ML VIAL.NEB NEB SCH ×4 (02:24→19:54)
[2021-06-09] MEDS: IPRATROPIUM NEB FS 0.5 MG/2.5 ML AMPUL.NEB NEB SCH ×4 (02:24→19:54)
[2021-06-09 08:08] VITALS: BP 131/65
[2021-06-09] MEDS: HYDROGEN PEROXIDE 480 ML BOTTLE TP SCH ×2 (08:34→21:45)
[2021-06-09] MEDS: FERROUS SULFATE - FOR SA ONLY 330 MG/7.5 ML UDC GT SCH ×2 (09:00→17:42)
[2021-06-09] MEDS: PANTOPRAZOLE 40 MG/PACK PACK GT SCH (09:00)
[2021-06-09] MEDS: MULTIVIT W/MINERALS 1 TAB TABLET GT SCH (09:00)
[2021-06-09] MEDS: HYDROCODONE/APAP 5/325MG TABLET GT SCH (09:00)
[2021-06-09] MEDS: TIMOLOL 0.5% SOLN OPHTH 5 ML BOTTLE EACHEYE SCH ×2 (09:00→17:42)
[2021-06-09] MEDS: PROSOURCE / PROSTAT (PYXIS) 30 ML UDC GT SCH ×4 (09:00→21:29)
[2021-06-09] MEDS: BICALUTAMIDE 50 MG TABLET GT SCH (09:00)
[2021-06-09] MEDS: LORATADINE 10 MG TABLET GT SCH (09:00)
[2021-06-09] MEDS: BACLOFEN (10 MG) 10 MG TABLET GT SCH (09:00)
[2021-06-09] MEDS: DOCUSATE SODIUM LIQ 100 MG/10 ML UDC GT SCH ×2 (09:00→17:42)
[2021-06-09] MEDS: PYRIDOXINE HCL 50 MG TABLET GT SCH (09:00)
[2021-06-09] MEDS: VITAMINS A AND D 56.7 GM TUBE TP SCH ×3 (09:00→21:29)
[2021-06-09] MEDS: LISINOPRIL (5MG) 5 MG TABLET GT SCH (09:00)
[2021-06-09] MEDS: POVIDONE-IODINE OINT 28.4 GM TUBE TP SCH ×6 (09:00)
[2021-06-09] MEDS: Z GUARD REMEDY 4 OZ OINT TP SCH ×2 (09:00→21:29)
[2021-06-09] MEDS: DAKINS QUARTER STRENGTH (0.125%) 480 ML BOTTLE TOP SCH (09:00)
[2021-06-09] MEDS: ARGININE/GLUTAMINE/CALCIUM BMB 1 EACH POWD.PACK GT SCH ×2 (09:00→17:42)
[2021-06-09] MEDS: FOLIC ACID 1 MG TABLET GT SCH (09:00)
[2021-06-09 13:23] VITALS: BP 159/62
--- NOTE | 2021-06-09 16:52 | NUR ---
Dental Exam By Dr. Alexandra completed on 05/28/2021.
[2021-06-09 19:10] VITALS: BP 113/68
[2021-06-09] MEDS: ATORVASTATIN 40 MG TABLET GT SCH (21:29)
[2021-06-09] MEDS: LATANOPROST EYE DROP 0.005% 2.5 ML BOTTLE EACHEYE SCH (21:29)
[2021-06-10] MEDS: POLYVINYL ALCOHOL 15 ML BOTTLE OP SCH ×5 (00:17→23:07)
[2021-06-10 00:21] VITALS: BP 108/63
[2021-06-10] MEDS: ALBUTEROL FS 2.5 MG/0.5 ML VIAL.NEB NEB SCH ×4 (01:50→19:36)
[2021-06-10] MEDS: IPRATROPIUM NEB FS 0.5 MG/2.5 ML AMPUL.NEB NEB SCH ×4 (01:50→19:36)
[2021-06-10] MEDS: HYDROCODONE/APAP 5/325MG TABLET PO PRN (02:56)
[2021-06-10 07:47] VITALS: BP 139/70
[2021-06-10] MEDS ORDERED: DAKINS HALF STRENGTH (0.25%) 480 ML BOTTLE TOP PRN (08:00)
[2021-06-10] MEDS: HYDROGEN PEROXIDE 480 ML BOTTLE TP SCH ×2 (08:23→21:26)
[2021-06-10] MEDS: POVIDONE-IODINE OINT 28.4 GM TUBE TP SCH ×5 (09:00)
[2021-06-10] MEDS: VITAMINS A AND D 56.7 GM TUBE TP SCH ×3 (09:00→20:42)
[2021-06-10] MEDS: Z GUARD REMEDY 4 OZ OINT TP SCH ×2 (09:00→20:42)
[2021-06-10] MEDS: DAKINS HALF STRENGTH (0.25%) 480 ML BOTTLE TOP SCH (09:00)
[2021-06-10] MEDS: ARGININE/GLUTAMINE/CALCIUM BMB 1 EACH POWD.PACK GT SCH ×2 (09:08→16:59)
[2021-06-10] MEDS: LORATADINE 10 MG TABLET GT SCH (09:08)
[2021-06-10] MEDS: BICALUTAMIDE 50 MG TABLET GT SCH (09:08)
[2021-06-10] MEDS: FERROUS SULFATE - FOR SA ONLY 330 MG/7.5 ML UDC GT SCH ×2 (09:08→16:59)
[2021-06-10] MEDS: FOLIC ACID 1 MG TABLET GT SCH (09:08)
[2021-06-10] MEDS: TIMOLOL 0.5% SOLN OPHTH 5 ML BOTTLE EACHEYE SCH ×2 (09:08→16:58)
[2021-06-10] MEDS: BACLOFEN (10 MG) 10 MG TABLET GT SCH (09:08)
[2021-06-10] MEDS: DOCUSATE SODIUM LIQ 100 MG/10 ML UDC GT SCH ×2 (09:08→16:59)
[2021-06-10] MEDS: LISINOPRIL (5MG) 5 MG TABLET GT SCH (09:09)
[2021-06-10] MEDS: PYRIDOXINE HCL 50 MG TABLET GT SCH (09:09)
[2021-06-10] MEDS: PROSOURCE / PROSTAT (PYXIS) 30 ML UDC GT SCH ×4 (09:09→20:42)
[2021-06-10] MEDS: MULTIVIT W/MINERALS 1 TAB TABLET GT SCH (09:09)
[2021-06-10] MEDS: PANTOPRAZOLE 40 MG/PACK PACK GT SCH (09:09)
[2021-06-10] MEDS: HYDROCODONE/APAP 5/325MG TABLET GT SCH (09:09)
[2021-06-10] MEDS: [UNRECOGNIZED DRUG - OTHER] GT SCH (09:09)
--- NOTE | 2021-06-10 10:22 | NUR ---
Seen by ANGELLA Porras. Received order to repeat CBC tomorrow.
[2021-06-10] MEDS: ACETAMINOPHEN 650 MG/20 ML UDC- SA PATIENTS-PAIN ONLY GT PRN (15:06)
[2021-06-10] MEDS: JEVITY 1.2 CAL 1,000 ML BOTTLE GT PRN (17:51)
[2021-06-10 19:21] VITALS: BP 116/63
[2021-06-10] MEDS: ATORVASTATIN 40 MG TABLET GT SCH (21:02)
[2021-06-10] MEDS: LATANOPROST EYE DROP 0.005% 2.5 ML BOTTLE EACHEYE SCH (21:02)
[2021-06-11] VITALS (10 sets, daily range): BP systolic 100–124; BP diastolic 47–70
[2021-06-11] MEDS: IPRATROPIUM NEB FS 0.5 MG/2.5 ML AMPUL.NEB NEB SCH ×4 (01:40→19:31)
[2021-06-11] MEDS: ALBUTEROL FS 2.5 MG/0.5 ML VIAL.NEB NEB SCH ×4 (01:40→19:31)
[2021-06-11] MEDS: HYDROCODONE/APAP 5/325MG TABLET PO PRN (01:41)
[2021-06-11] MEDS: POLYVINYL ALCOHOL 15 ML BOTTLE OP SCH ×4 (05:07→23:15)
[2021-06-11 06:43] LABS: BASOPHILS % (AUTO) 0.3 % (0.0-2.0); EOSINOPHILS % (AUTO) 5.1 % (0.0-6.0); HEMATOCRIT 22 % (39-51); HEMOGLOBIN 7.1 g/dL (13.5-17.5); LYMPHOCYTES # (AUTO) 1.2 K/uL (0.8-4.8); LYMPHOCYTES % (AUTO) 20.3 % (20.0-44.0); MEAN CORPUSCULAR HGB CONC 32 g/dl (31.0-36.0); MEAN CORPUSCULAR VOLUME 90 fL (80-96); MONOCYTES # (AUTO) 0.7 K/uL (0.1-1.30); MONOCYTES % (AUTO) 12.7 % (2.0-12.0); NEUTROPHILS # (AUTO) 3.6 K/uL (1.8-8.9); NEUTROPHILS % (AUTO) 61.6 % (43.0-81.0); PLATELET COUNT (AUTO) 272 K/uL (150-450); RED BLOOD CELL COUNT(AUTO) 2.48 MIL/uL (4.5-6.0); WHITE BLOOD COUNT (AUTO) 5.9 K/uL (4.3-11.0)
[2021-06-11] MEDS: HYDROGEN PEROXIDE 480 ML BOTTLE TP SCH ×2 (08:07→21:00)
[2021-06-11] MEDS: DAKINS HALF STRENGTH (0.25%) 480 ML BOTTLE TOP SCH (09:00)
[2021-06-11] MEDS: VITAMINS A AND D 56.7 GM TUBE TP SCH ×3 (09:00→20:28)
[2021-06-11] MEDS: Z GUARD REMEDY 4 OZ OINT TP SCH ×2 (09:00→20:28)
[2021-06-11] MEDS: POVIDONE-IODINE OINT 28.4 GM TUBE TP SCH ×4 (09:00)
[2021-06-11] MEDS: MULTIVIT W/MINERALS 1 TAB TABLET GT SCH (09:32)
[2021-06-11] MEDS: HYDROCODONE/APAP 5/325MG TABLET GT SCH (09:32)
[2021-06-11] MEDS: PANTOPRAZOLE 40 MG/PACK PACK GT SCH (09:32)
[2021-06-11] MEDS: PROSOURCE / PROSTAT (PYXIS) 30 ML UDC GT SCH ×4 (09:32→20:28)
[2021-06-11] MEDS: LISINOPRIL (5MG) 5 MG TABLET GT SCH (09:32)
[2021-06-11] MEDS: PYRIDOXINE HCL 50 MG TABLET GT SCH (09:32)
[2021-06-11] MEDS: ARGININE/GLUTAMINE/CALCIUM BMB 1 EACH POWD.PACK GT SCH ×2 (09:36→17:00)
[2021-06-11] MEDS: BACLOFEN (10 MG) 10 MG TABLET GT SCH (09:36)
[2021-06-11] MEDS: DOCUSATE SODIUM LIQ 100 MG/10 ML UDC GT SCH ×2 (09:36→17:00)
[2021-06-11] MEDS: LORATADINE 10 MG TABLET GT SCH (09:36)
[2021-06-11] MEDS: BICALUTAMIDE 50 MG TABLET GT SCH (09:36)
[2021-06-11] MEDS: TIMOLOL 0.5% SOLN OPHTH 5 ML BOTTLE EACHEYE SCH ×2 (09:36→17:00)
[2021-06-11] MEDS: FOLIC ACID 1 MG TABLET GT SCH (09:36)
[2021-06-11] MEDS: FERROUS SULFATE - FOR SA ONLY 330 MG/7.5 ML UDC GT SCH ×2 (09:36→17:00)
--- NOTE | 2021-06-11 11:09 | NUR ---
Facility Update: MAURICIO notified family via email that, " Facility Update: No [facility] Sub-Acute residents or employees tested positive for COVID-19 this week. [facility] continues to test Sub-Acute residents & healthcare personnel as recommended by [facility]. [facility] continues to follow infection control protocols and screen our residents and staff daily for symptoms".
--- NOTE | 2021-06-11 12:03 | NUR ---
SS note: MAURICIO received call from pt.'s sister, Shae Jauregui [phone] stating that she may possibly want to participate in the next month's IDT meeting. MAURICIO notified her that IDT for this pt. will take place 06/18/2021 and Shae stated she will notify SW if she will be available. Noted. Shae also stated that she is working [employer] [facility] to make arrangements for pt. Shae stated she is aware pt.'s health is declining and wants to be prepared. SW addressed Shae's questions regarding the process of when a patient dies in the unit. Shae was agreeable. Shae stated she will provide information of arrangements when needed. Addendum: 06/11/21 at 1209 by DAISHA MARTÍNEZ Late Entry for 06/10/2021
--- NOTE | 2021-06-11 12:35 | NUR ---
Relayed CBC result (WBC 7.1) to Dr. Santillan with order to transfuse 1 unit PRBC. Consent obtained from patient's sister Shae to administer of 1 unit of PRBC witnessed by [address] LN[address] Order carried out. Addendum: 06/18/21 at 1126 by DORON FLORES RN correction: WBC 5.9, Hgb 7.1
--- NOTE | 2021-06-11 13:59 | NUR ---
Monthly progress note resident awake unable to communicate his needs room visits twice a day seven days a week provides movies and country music,He also have a caregiver seven days a week for two hours resident Activities will continue as order.
--- NOTE | 2021-06-11 17:05 | NUR ---
Blood transfusion started. midline in the R upper arm patent and intact. No adverse reaction noted, no rashes and afebrile.
[2021-06-11] MEDS: JEVITY 1.2 CAL 1,000 ML BOTTLE GT PRN (18:23)
[2021-06-11] MEDS: ACETAMINOPHEN 650 MG/20 ML UDC- SA PATIENTS-PAIN ONLY GT PRN (20:29)
--- NOTE | 2021-06-11 20:30 | NUR ---
RN notes 1 unit PRBC is done transfusing. No S/S of distress noted. Vs is stable. Afebrile. Pt tolerated well. Will continue to monitor.
[2021-06-11] MEDS: ATORVASTATIN 40 MG TABLET GT SCH (21:09)
[2021-06-11] MEDS: LATANOPROST EYE DROP 0.005% 2.5 ML BOTTLE EACHEYE SCH (21:09)
[2021-06-12 00:43] VITALS: BP 124/71
[2021-06-12] MEDS: IPRATROPIUM NEB FS 0.5 MG/2.5 ML AMPUL.NEB NEB SCH ×4 (02:19→20:11)
[2021-06-12] MEDS: ALBUTEROL FS 2.5 MG/0.5 ML VIAL.NEB NEB SCH ×4 (02:19→20:11)
[2021-06-12] MEDS: ACETAMINOPHEN 650 MG/20 ML UDC- SA PATIENTS-PAIN ONLY GT PRN (04:12)
[2021-06-12] MEDS: POLYVINYL ALCOHOL 15 ML BOTTLE OP SCH ×3 (05:12→18:30)
[2021-06-12 07:55] VITALS: BP 108/59
[2021-06-12] MEDS: HYDROGEN PEROXIDE 480 ML BOTTLE TP SCH ×2 (08:01→21:59)
[2021-06-12] MEDS: Z GUARD REMEDY 4 OZ OINT TP SCH ×2 (09:00→20:43)
[2021-06-12] MEDS: POVIDONE-IODINE OINT 28.4 GM TUBE TP SCH ×4 (09:00)
[2021-06-12] MEDS: VITAMINS A AND D 56.7 GM TUBE TP SCH ×3 (09:00→20:44)
[2021-06-12] MEDS: DAKINS HALF STRENGTH (0.25%) 480 ML BOTTLE TOP SCH (09:00)
[2021-06-12] MEDS: ARGININE/GLUTAMINE/CALCIUM BMB 1 EACH POWD.PACK GT SCH ×2 (09:37→16:40)
[2021-06-12] MEDS: FERROUS SULFATE - FOR SA ONLY 330 MG/7.5 ML UDC GT SCH ×2 (09:37→16:40)
[2021-06-12] MEDS: [UNRECOGNIZED DRUG - OTHER] GT SCH (09:37)
[2021-06-12] MEDS: BICALUTAMIDE 50 MG TABLET GT SCH (09:37)
[2021-06-12] MEDS: DOCUSATE SODIUM LIQ 100 MG/10 ML UDC GT SCH ×2 (09:37→16:40)
[2021-06-12] MEDS: TIMOLOL 0.5% SOLN OPHTH 5 ML BOTTLE EACHEYE SCH ×2 (09:37→16:40)
[2021-06-12] MEDS: BACLOFEN (10 MG) 10 MG TABLET GT SCH (09:37)
[2021-06-12] MEDS: HYDROCODONE/APAP 5/325MG TABLET GT SCH (09:37)
[2021-06-12] MEDS: LORATADINE 10 MG TABLET GT SCH (09:37)
[2021-06-12] MEDS: FOLIC ACID 1 MG TABLET GT SCH (09:37)
[2021-06-12] MEDS: PANTOPRAZOLE 40 MG/PACK PACK GT SCH (09:38)
[2021-06-12] MEDS: PROSOURCE / PROSTAT (PYXIS) 30 ML UDC GT SCH ×4 (09:38→20:44)
[2021-06-12] MEDS: PYRIDOXINE HCL 50 MG TABLET GT SCH (09:38)
[2021-06-12] MEDS: MULTIVIT W/MINERALS 1 TAB TABLET GT SCH (09:38)
[2021-06-12] MEDS: LISINOPRIL (5MG) 5 MG TABLET GT SCH (09:38)
--- NOTE | 2021-06-12 10:38 | NUR ---
Seen and examined by Dr. Santillan, no new order given. Asked MD if he would like to have a follow-up CBC, he said not now. Resident still with hematuria.
[2021-06-12 12:38] VITALS: BP 107/83
[2021-06-12] MEDS: JEVITY 1.2 CAL 1,000 ML BOTTLE GT PRN (16:40)
[2021-06-12] MEDS: MAGNESIUM HYDROXIDE 30 ML UDC GT PRN (16:40)
[2021-06-12] MEDS: HYDROCODONE/APAP 5/325MG TABLET PO PRN (16:41)
[2021-06-12 20:06] VITALS: BP 114/72
[2021-06-12] MEDS: ATORVASTATIN 40 MG TABLET GT SCH (21:36)
[2021-06-12] MEDS: LATANOPROST EYE DROP 0.005% 2.5 ML BOTTLE EACHEYE SCH (22:19)
[2021-06-13] MEDS: POLYVINYL ALCOHOL 15 ML BOTTLE OP SCH ×4 (00:06→18:01)
[2021-06-13 00:45] VITALS: BP 118/80
[2021-06-13] MEDS: IPRATROPIUM NEB FS 0.5 MG/2.5 ML AMPUL.NEB NEB SCH ×4 (01:55→19:30)
[2021-06-13] MEDS: ALBUTEROL FS 2.5 MG/0.5 ML VIAL.NEB NEB SCH ×4 (01:55→19:30)
[2021-06-13 07:54] VITALS: BP 131/75
[2021-06-13] MEDS: HYDROGEN PEROXIDE 480 ML BOTTLE TP SCH ×2 (08:48→21:47)
[2021-06-13] MEDS: POVIDONE-IODINE OINT 28.4 GM TUBE TP SCH ×4 (09:00)
[2021-06-13] MEDS: DAKINS HALF STRENGTH (0.25%) 480 ML BOTTLE TOP SCH (09:00)
[2021-06-13] MEDS: VITAMINS A AND D 56.7 GM TUBE TP SCH ×3 (09:00→20:51)
[2021-06-13] MEDS: Z GUARD REMEDY 4 OZ OINT TP SCH ×2 (09:00→20:51)
[2021-06-13] MEDS: BACLOFEN (10 MG) 10 MG TABLET GT SCH (09:20)
[2021-06-13] MEDS: ARGININE/GLUTAMINE/CALCIUM BMB 1 EACH POWD.PACK GT SCH ×2 (09:20→16:48)
[2021-06-13] MEDS: BICALUTAMIDE 50 MG TABLET GT SCH (09:20)
[2021-06-13] MEDS: FOLIC ACID 1 MG TABLET GT SCH (09:20)
[2021-06-13] MEDS: LORATADINE 10 MG TABLET GT SCH (09:20)
[2021-06-13] MEDS: TIMOLOL 0.5% SOLN OPHTH 5 ML BOTTLE EACHEYE SCH ×2 (09:20→16:48)
[2021-06-13] MEDS: FERROUS SULFATE - FOR SA ONLY 330 MG/7.5 ML UDC GT SCH ×2 (09:20→16:48)
[2021-06-13] MEDS: DOCUSATE SODIUM LIQ 100 MG/10 ML UDC GT SCH ×2 (09:20→16:48)
[2021-06-13] MEDS: HYDROCODONE/APAP 5/325MG TABLET GT SCH (09:21)
[2021-06-13] MEDS: PANTOPRAZOLE 40 MG/PACK PACK GT SCH (09:22)
[2021-06-13] MEDS: PROSOURCE / PROSTAT (PYXIS) 30 ML UDC GT SCH ×4 (09:22→20:50)
[2021-06-13] MEDS: LISINOPRIL (5MG) 5 MG TABLET GT SCH (09:22)
[2021-06-13] MEDS: MULTIVIT W/MINERALS 1 TAB TABLET GT SCH (09:23)
[2021-06-13] MEDS: PYRIDOXINE HCL 50 MG TABLET GT SCH (09:23)
[2021-06-13 13:20] VITALS: BP 136/76
[2021-06-13] MEDS: JEVITY 1.2 CAL 1,000 ML BOTTLE GT PRN (18:03)
[2021-06-13 20:39] VITALS: BP 126/83
[2021-06-13] MEDS: LATANOPROST EYE DROP 0.005% 2.5 ML BOTTLE EACHEYE SCH (22:21)
[2021-06-13] MEDS: ATORVASTATIN 40 MG TABLET GT SCH (22:21)
[2021-06-14 00:37] VITALS: BP 118/71
[2021-06-14] MEDS: POLYVINYL ALCOHOL 15 ML BOTTLE OP SCH ×4 (00:38→16:44)
[2021-06-14] MEDS: ALBUTEROL FS 2.5 MG/0.5 ML VIAL.NEB NEB SCH ×4 (01:54→19:19)
[2021-06-14] MEDS: IPRATROPIUM NEB FS 0.5 MG/2.5 ML AMPUL.NEB NEB SCH ×4 (01:54→19:19)
[2021-06-14 07:26] VITALS: BP 109/60
[2021-06-14] MEDS: BICALUTAMIDE 50 MG TABLET GT SCH (08:48)
[2021-06-14] MEDS: DOCUSATE SODIUM LIQ 100 MG/10 ML UDC GT SCH ×2 (08:48→16:44)
[2021-06-14] MEDS: ARGININE/GLUTAMINE/CALCIUM BMB 1 EACH POWD.PACK GT SCH ×2 (08:48→16:44)
[2021-06-14] MEDS: FERROUS SULFATE - FOR SA ONLY 330 MG/7.5 ML UDC GT SCH ×2 (08:48→16:44)
[2021-06-14] MEDS: LORATADINE 10 MG TABLET GT SCH (08:48)
[2021-06-14] MEDS: FOLIC ACID 1 MG TABLET GT SCH (08:48)
[2021-06-14] MEDS: TIMOLOL 0.5% SOLN OPHTH 5 ML BOTTLE EACHEYE SCH ×2 (08:48→16:44)
[2021-06-14] MEDS: BACLOFEN (10 MG) 10 MG TABLET GT SCH (08:48)
[2021-06-14] MEDS: [UNRECOGNIZED DRUG - OTHER] GT SCH (08:48)
[2021-06-14] MEDS: PYRIDOXINE HCL 50 MG TABLET GT SCH (08:49)
[2021-06-14] MEDS: MULTIVIT W/MINERALS 1 TAB TABLET GT SCH (08:49)
[2021-06-14] MEDS: LISINOPRIL (5MG) 5 MG TABLET GT SCH (08:49)
[2021-06-14] MEDS: PROSOURCE / PROSTAT (PYXIS) 30 ML UDC GT SCH ×4 (08:49→21:11)
[2021-06-14] MEDS: PANTOPRAZOLE 40 MG/PACK PACK GT SCH (08:49)
[2021-06-14] MEDS: HYDROCODONE/APAP 5/325MG TABLET GT SCH (08:49)
[2021-06-14] MEDS: VITAMINS A AND D 56.7 GM TUBE TP SCH ×3 (09:00→21:11)
[2021-06-14] MEDS: POVIDONE-IODINE OINT 28.4 GM TUBE TP SCH ×4 (09:00)
[2021-06-14] MEDS: DAKINS HALF STRENGTH (0.25%) 480 ML BOTTLE TOP SCH (09:00)
[2021-06-14] MEDS: Z GUARD REMEDY 4 OZ OINT TP SCH ×2 (09:00→21:11)
[2021-06-14] MEDS: HYDROGEN PEROXIDE 480 ML BOTTLE TP SCH ×2 (09:24→20:41)
--- NOTE | 2021-06-14 10:55 | NUR ---
Notified SERVICE LOSS CONTROL CONSULTANT Jennifer Porras that pt has completed his antibiotics, pt afebrile T 97.5 F. Asked her if we can now administer the influenza vaccine and she said yes. Pt's sister Shea has already given consent for it.
[2021-06-14 12:31] VITALS: BP 125/71
[2021-06-14] MEDS ORDERED: INFLUENZA VACCINE 2021-22 0.5 ML DISP.SYRIN IM ONE (13:00)
--- NOTE | 2021-06-14 13:01 | NUR ---
Influenza vaccine administered on pt's left deltoid. No adverse reaction noted at this time.
--- NOTE | 2021-06-14 16:36 | NUR ---
Family Satisfaction Survey: SW emailed the Family Satisfaction Survey to pt.'s family. SW notified family in the email that they can email it back or print and turn into nursing station or SW at their earliest Convenience.
[2021-06-14 20:47] VITALS: BP 92/60
[2021-06-14] MEDS: LATANOPROST EYE DROP 0.005% 2.5 ML BOTTLE EACHEYE SCH (21:11)
[2021-06-14] MEDS: ATORVASTATIN 40 MG TABLET GT SCH (21:11)
[2021-06-15] MEDS: POLYVINYL ALCOHOL 15 ML BOTTLE OP SCH ×5 (00:38→23:24)
[2021-06-15] MEDS: ALBUTEROL FS 2.5 MG/0.5 ML VIAL.NEB NEB SCH ×4 (01:01→19:52)
[2021-06-15] MEDS: IPRATROPIUM NEB FS 0.5 MG/2.5 ML AMPUL.NEB NEB SCH ×4 (01:01→19:52)
[2021-06-15 07:11] VITALS: BP 108/70
[2021-06-15] MEDS: FOLIC ACID 1 MG TABLET GT SCH (08:21)
[2021-06-15] MEDS: LORATADINE 10 MG TABLET GT SCH (08:21)
[2021-06-15] MEDS: FERROUS SULFATE - FOR SA ONLY 330 MG/7.5 ML UDC GT SCH ×2 (08:21→17:58)
[2021-06-15] MEDS: BACLOFEN (10 MG) 10 MG TABLET GT SCH (08:21)
[2021-06-15] MEDS: TIMOLOL 0.5% SOLN OPHTH 5 ML BOTTLE EACHEYE SCH ×2 (08:21→17:58)
[2021-06-15] MEDS: DOCUSATE SODIUM LIQ 100 MG/10 ML UDC GT SCH ×2 (08:21→17:58)
[2021-06-15] MEDS: BICALUTAMIDE 50 MG TABLET GT SCH (08:21)
[2021-06-15] MEDS: HYDROCODONE/APAP 5/325MG TABLET GT SCH (08:22)
[2021-06-15] MEDS: PANTOPRAZOLE 40 MG/PACK PACK GT SCH (08:23)
[2021-06-15] MEDS: PYRIDOXINE HCL 50 MG TABLET GT SCH (08:23)
[2021-06-15] MEDS: PROSOURCE / PROSTAT (PYXIS) 30 ML UDC GT SCH ×4 (08:23→21:21)
[2021-06-15] MEDS: LISINOPRIL (5MG) 5 MG TABLET GT SCH (08:23)
[2021-06-15] MEDS: MULTIVIT W/MINERALS 1 TAB TABLET GT SCH (08:23)
[2021-06-15] MEDS: ARGININE/GLUTAMINE/CALCIUM BMB 1 EACH POWD.PACK GT SCH ×2 (08:44→17:58)
[2021-06-15] MEDS: POVIDONE-IODINE OINT 28.4 GM TUBE TP SCH ×4 (09:00)
[2021-06-15] MEDS: Z GUARD REMEDY 4 OZ OINT TP SCH ×2 (09:00→21:21)
[2021-06-15] MEDS: VITAMINS A AND D 56.7 GM TUBE TP SCH ×3 (09:00→21:22)
[2021-06-15] MEDS: DAKINS HALF STRENGTH (0.25%) 480 ML BOTTLE TOP SCH (09:00)
[2021-06-15] MEDS: HYDROGEN PEROXIDE 480 ML BOTTLE TP SCH ×2 (09:47→19:53)
[2021-06-15 12:18] VITALS: BP 96/63
--- NOTE | 2021-06-15 19:03 | NUR ---
addendum: monitored for S/P flu vaccination with no A/R noted. afebrile, no respiratory distress noted.
[2021-06-15 19:23] VITALS: BP 107/70
[2021-06-15] MEDS: LATANOPROST EYE DROP 0.005% 2.5 ML BOTTLE EACHEYE SCH (21:22)
[2021-06-15] MEDS: ATORVASTATIN 40 MG TABLET GT SCH (21:22)
[2021-06-16 00:57] VITALS: BP 108/67
[2021-06-16] MEDS: IPRATROPIUM NEB FS 0.5 MG/2.5 ML AMPUL.NEB NEB SCH ×4 (02:20→20:05)
[2021-06-16] MEDS: ALBUTEROL FS 2.5 MG/0.5 ML VIAL.NEB NEB SCH ×4 (02:20→20:06)
[2021-06-16] MEDS: POLYVINYL ALCOHOL 15 ML BOTTLE OP SCH ×4 (05:53→23:57)
[2021-06-16 07:17] VITALS: BP 132/96
[2021-06-16] MEDS: HYDROGEN PEROXIDE 480 ML BOTTLE TP SCH ×2 (08:05→20:06)
[2021-06-16] MEDS: [UNRECOGNIZED DRUG - OTHER] GT SCH (08:57)
[2021-06-16] MEDS: ARGININE/GLUTAMINE/CALCIUM BMB 1 EACH POWD.PACK GT SCH ×2 (08:57→17:33)
[2021-06-16] MEDS: FERROUS SULFATE - FOR SA ONLY 330 MG/7.5 ML UDC GT SCH ×2 (08:57→17:33)
[2021-06-16] MEDS: BACLOFEN (10 MG) 10 MG TABLET GT SCH (08:57)
[2021-06-16] MEDS: TIMOLOL 0.5% SOLN OPHTH 5 ML BOTTLE EACHEYE SCH ×2 (08:57→17:33)
[2021-06-16] MEDS: FOLIC ACID 1 MG TABLET GT SCH (08:57)
[2021-06-16] MEDS: BICALUTAMIDE 50 MG TABLET GT SCH (08:57)
[2021-06-16] MEDS: LORATADINE 10 MG TABLET GT SCH (08:57)
[2021-06-16] MEDS: DOCUSATE SODIUM LIQ 100 MG/10 ML UDC GT SCH ×2 (08:57→17:33)
[2021-06-16] MEDS: POVIDONE-IODINE OINT 28.4 GM TUBE TP SCH ×4 (08:58→08:59)
[2021-06-16] MEDS: LISINOPRIL (5MG) 5 MG TABLET GT SCH (08:58)
[2021-06-16] MEDS: PYRIDOXINE HCL 50 MG TABLET GT SCH (08:58)
[2021-06-16] MEDS: DAKINS HALF STRENGTH (0.25%) 480 ML BOTTLE TOP SCH (08:58)
[2021-06-16] MEDS: HYDROCODONE/APAP 5/325MG TABLET GT SCH (08:58)
[2021-06-16] MEDS: MULTIVIT W/MINERALS 1 TAB TABLET GT SCH (08:58)
[2021-06-16] MEDS: PANTOPRAZOLE 40 MG/PACK PACK GT SCH (08:58)
[2021-06-16] MEDS: PROSOURCE / PROSTAT (PYXIS) 30 ML UDC GT SCH ×4 (08:58→21:34)
[2021-06-16] MEDS: Z GUARD REMEDY 4 OZ OINT TP SCH ×2 (08:59→21:34)
[2021-06-16] MEDS: VITAMINS A AND D 56.7 GM TUBE TP SCH ×3 (08:59→21:34)
--- NOTE | 2021-06-16 11:26 | NUR ---
Family Invite to IDT: MAURICIO emailed the pt.'s sister, Shae and Maciej CHARLTON inviting them to participate in 06/18/21 12:30 pm IDT meeting. MAURICIO will follow up accordingly.
[2021-06-16 13:47] VITALS: BP 128/88
--- NOTE | 2021-06-16 19:00 | NUR ---
monitored for S/P flu vaccination with no A/R noted. afebrile, no respiratory distress noted.
[2021-06-16 19:45] VITALS: BP 131/74
--- NOTE | 2021-06-16 21:15 | NUR ---
S/P flu vac without delayed adverse reaction noted. No bleeding at injection site. Vital signs WNL. No s/s of any kind of distress evident. Will continue to monitor.
[2021-06-16] MEDS: ATORVASTATIN 40 MG TABLET GT SCH (21:34)
[2021-06-16] MEDS: LATANOPROST EYE DROP 0.005% 2.5 ML BOTTLE EACHEYE SCH (21:34)
[2021-06-16] MEDS: ACETAMINOPHEN 650 MG/20 ML UDC- SA PATIENTS-PAIN ONLY GT PRN (21:38)
[2021-06-17 00:13] VITALS: BP 100/63
[2021-06-17] MEDS: ALBUTEROL FS 2.5 MG/0.5 ML VIAL.NEB NEB SCH ×4 (01:33→20:13)
[2021-06-17] MEDS: IPRATROPIUM NEB FS 0.5 MG/2.5 ML AMPUL.NEB NEB SCH ×4 (01:33→20:13)
[2021-06-17] MEDS: POLYVINYL ALCOHOL 15 ML BOTTLE OP SCH ×4 (05:51→23:17)
[2021-06-17 07:51] VITALS: BP 104/65
[2021-06-17] MEDS: HYDROGEN PEROXIDE 480 ML BOTTLE TP SCH ×2 (08:12→20:13)
[2021-06-17] MEDS: LISINOPRIL (5MG) 5 MG TABLET GT SCH (09:00)
[2021-06-17] MEDS: LORATADINE 10 MG TABLET GT SCH (09:38)
[2021-06-17] MEDS: BICALUTAMIDE 50 MG TABLET GT SCH (09:38)
[2021-06-17] MEDS: ARGININE/GLUTAMINE/CALCIUM BMB 1 EACH POWD.PACK GT SCH ×2 (09:38→17:05)
[2021-06-17] MEDS: FERROUS SULFATE - FOR SA ONLY 330 MG/7.5 ML UDC GT SCH ×2 (09:39→17:05)
[2021-06-17] MEDS: MULTIVIT W/MINERALS 1 TAB TABLET GT SCH (09:39)
[2021-06-17] MEDS: DOCUSATE SODIUM LIQ 100 MG/10 ML UDC GT SCH ×2 (09:39→17:05)
[2021-06-17] MEDS: FOLIC ACID 1 MG TABLET GT SCH (09:39)
[2021-06-17] MEDS: PYRIDOXINE HCL 50 MG TABLET GT SCH (09:39)
[2021-06-17] MEDS: PROSOURCE / PROSTAT (PYXIS) 30 ML UDC GT SCH ×4 (09:39→20:29)
[2021-06-17] MEDS: PANTOPRAZOLE 40 MG/PACK PACK GT SCH (09:39)
[2021-06-17] MEDS: HYDROCODONE/APAP 5/325MG TABLET GT SCH (09:39)
[2021-06-17] MEDS: BACLOFEN (10 MG) 10 MG TABLET GT SCH (09:39)
[2021-06-17] MEDS: TIMOLOL 0.5% SOLN OPHTH 5 ML BOTTLE EACHEYE SCH ×2 (09:52→17:04)
[2021-06-17] MEDS: Z GUARD REMEDY 4 OZ OINT TP SCH ×2 (11:00→20:29)
[2021-06-17] MEDS: DAKINS HALF STRENGTH (0.25%) 480 ML BOTTLE TOP SCH (11:00)
[2021-06-17] MEDS: POVIDONE-IODINE OINT 28.4 GM TUBE TP SCH ×4 (11:00)
[2021-06-17] MEDS: VITAMINS A AND D 56.7 GM TUBE TP SCH ×3 (11:00→20:29)
[2021-06-17 12:20] VITALS: BP 110/66
[2021-06-17] MEDS: ACETAMINOPHEN 650 MG/20 ML UDC- SA PATIENTS-PAIN ONLY GT PRN (17:07)
[2021-06-17 19:38] VITALS: BP 112/72
[2021-06-17] MEDS: ATORVASTATIN 40 MG TABLET GT SCH (21:06)
[2021-06-17] MEDS: LATANOPROST EYE DROP 0.005% 2.5 ML BOTTLE EACHEYE SCH (21:06)
[2021-06-17 23:29] VITALS: BP 121/78
[2021-06-18] MEDS: ALBUTEROL FS 2.5 MG/0.5 ML VIAL.NEB NEB SCH ×4 (01:28→20:15)
[2021-06-18] MEDS: IPRATROPIUM NEB FS 0.5 MG/2.5 ML AMPUL.NEB NEB SCH ×4 (01:28→20:15)
[2021-06-18] MEDS: JEVITY 1.2 CAL 1,000 ML BOTTLE GT PRN ×2 (05:14→17:09)
[2021-06-18] MEDS: MAGNESIUM HYDROXIDE 30 ML UDC GT PRN (05:14)
[2021-06-18] MEDS: POLYVINYL ALCOHOL 15 ML BOTTLE OP SCH ×4 (05:14→23:24)
[2021-06-18 07:27] VITALS: BP 120/81
[2021-06-18] MEDS: HYDROGEN PEROXIDE 480 ML BOTTLE TP SCH ×2 (08:14→20:15)
[2021-06-18] MEDS: Z GUARD REMEDY 4 OZ OINT TP SCH ×2 (09:00→20:28)
[2021-06-18] MEDS: DAKINS HALF STRENGTH (0.25%) 480 ML BOTTLE TOP SCH (09:00)
[2021-06-18] MEDS: POVIDONE-IODINE OINT 28.4 GM TUBE TP SCH ×4 (09:00)
[2021-06-18] MEDS: VITAMINS A AND D 56.7 GM TUBE TP SCH ×3 (09:00→20:28)
[2021-06-18] MEDS: LORATADINE 10 MG TABLET GT SCH (09:56)
[2021-06-18] MEDS: TIMOLOL 0.5% SOLN OPHTH 5 ML BOTTLE EACHEYE SCH ×2 (09:56→16:51)
[2021-06-18] MEDS: DOCUSATE SODIUM LIQ 100 MG/10 ML UDC GT SCH ×2 (09:56→16:51)
[2021-06-18] MEDS: FOLIC ACID 1 MG TABLET GT SCH (09:56)
[2021-06-18] MEDS: [UNRECOGNIZED DRUG - OTHER] GT SCH (09:56)
[2021-06-18] MEDS: HYDROCODONE/APAP 5/325MG TABLET GT SCH (09:56)
[2021-06-18] MEDS: FERROUS SULFATE - FOR SA ONLY 330 MG/7.5 ML UDC GT SCH ×2 (09:56→16:51)
[2021-06-18] MEDS: BICALUTAMIDE 50 MG TABLET GT SCH (09:56)
[2021-06-18] MEDS: BACLOFEN (10 MG) 10 MG TABLET GT SCH (09:56)
[2021-06-18] MEDS: ARGININE/GLUTAMINE/CALCIUM BMB 1 EACH POWD.PACK GT SCH ×2 (09:56→16:51)
[2021-06-18] MEDS: MULTIVIT W/MINERALS 1 TAB TABLET GT SCH (09:57)
[2021-06-18] MEDS: LISINOPRIL (5MG) 5 MG TABLET GT SCH (09:57)
[2021-06-18] MEDS: PYRIDOXINE HCL 50 MG TABLET GT SCH (09:57)
[2021-06-18] MEDS: PROSOURCE / PROSTAT (PYXIS) 30 ML UDC GT SCH ×4 (09:57→20:28)
[2021-06-18] MEDS: PANTOPRAZOLE 40 MG/PACK PACK GT SCH (09:57)
[2021-06-18 12:34] VITALS: BP 100/69
--- NOTE | 2021-06-18 14:34 | NUR ---
INTERDISCIPLINARY PLAN OF CARE CONFERENCE took place today. The patients Maciej CHARLTON [phone] participated in the meeting via phone conference. Dr. Sullivan and Interdisciplinary team discussed the plan of care in detail. Current orders as well as treatments and medications were reviewed.
--- NOTE | 2021-06-18 15:42 | NUR ---
Optometry Apt: MAURICIO emailed pt.'s family notifying them of pt.'s scheduled annual optometry exam on Monday, June 21, 2021.
[2021-06-18 19:18] VITALS: BP 129/65
[2021-06-18] MEDS: ATORVASTATIN 40 MG TABLET GT SCH (21:02)
[2021-06-18] MEDS: LATANOPROST EYE DROP 0.005% 2.5 ML BOTTLE EACHEYE SCH (21:02)
[2021-06-18] MEDS: ACETAMINOPHEN 650 MG/20 ML UDC- SA PATIENTS-PAIN ONLY GT PRN (21:12)
[2021-06-18 23:56] VITALS: BP 105/74
[2021-06-19] MEDS: ALBUTEROL FS 2.5 MG/0.5 ML VIAL.NEB NEB SCH ×4 (02:44→19:47)
[2021-06-19] MEDS: IPRATROPIUM NEB FS 0.5 MG/2.5 ML AMPUL.NEB NEB SCH ×4 (02:44→19:47)
[2021-06-19] MEDS: POLYVINYL ALCOHOL 15 ML BOTTLE OP SCH ×4 (05:12→23:11)
[2021-06-19 07:30] VITALS: BP 104/64
[2021-06-19] MEDS: LISINOPRIL (5MG) 5 MG TABLET GT SCH (09:00)
[2021-06-19] MEDS: POVIDONE-IODINE OINT 28.4 GM TUBE TP SCH ×4 (09:00)
[2021-06-19] MEDS: VITAMINS A AND D 56.7 GM TUBE TP SCH ×3 (09:00→21:12)
[2021-06-19] MEDS: DAKINS HALF STRENGTH (0.25%) 480 ML BOTTLE TOP SCH (09:00)
[2021-06-19] MEDS: Z GUARD REMEDY 4 OZ OINT TP SCH ×2 (09:00→21:12)
[2021-06-19] MEDS: HYDROGEN PEROXIDE 480 ML BOTTLE TP SCH ×2 (09:00→21:05)
[2021-06-19] MEDS: DOCUSATE SODIUM LIQ 100 MG/10 ML UDC GT SCH ×2 (09:41→16:38)
[2021-06-19] MEDS: BICALUTAMIDE 50 MG TABLET GT SCH (09:41)
[2021-06-19] MEDS: LORATADINE 10 MG TABLET GT SCH (09:41)
[2021-06-19] MEDS: FOLIC ACID 1 MG TABLET GT SCH (09:41)
[2021-06-19] MEDS: ARGININE/GLUTAMINE/CALCIUM BMB 1 EACH POWD.PACK GT SCH ×2 (09:41→16:38)
[2021-06-19] MEDS: FERROUS SULFATE - FOR SA ONLY 330 MG/7.5 ML UDC GT SCH ×2 (09:41→16:38)
[2021-06-19] MEDS: BACLOFEN (10 MG) 10 MG TABLET GT SCH (09:41)
[2021-06-19] MEDS: TIMOLOL 0.5% SOLN OPHTH 5 ML BOTTLE EACHEYE SCH ×2 (09:41→16:38)
[2021-06-19] MEDS: PANTOPRAZOLE 40 MG/PACK PACK GT SCH (09:42)
[2021-06-19] MEDS: MULTIVIT W/MINERALS 1 TAB TABLET GT SCH (09:42)
[2021-06-19] MEDS: PYRIDOXINE HCL 50 MG TABLET GT SCH (09:42)
[2021-06-19] MEDS: HYDROCODONE/APAP 5/325MG TABLET GT SCH (09:42)
[2021-06-19] MEDS: PROSOURCE / PROSTAT (PYXIS) 30 ML UDC GT SCH ×4 (09:42→21:12)
[2021-06-19 12:17] VITALS: BP 126/68
--- NOTE | 2021-06-19 17:14 | NUR ---
Indwelling andres catheter leaking. Changed today. 16Fr andres catheter intact, patent and draining. No hematuria noted. Will be endorsed to incoming night nurse.
[2021-06-19 19:09] VITALS: BP 107/73
[2021-06-19] MEDS: ATORVASTATIN 40 MG TABLET GT SCH (21:12)
[2021-06-19] MEDS: LATANOPROST EYE DROP 0.005% 2.5 ML BOTTLE EACHEYE SCH (21:12)
[2021-06-19] MEDS: JEVITY 1.2 CAL 1,000 ML BOTTLE GT PRN (21:25)
[2021-06-20 00:07] VITALS: BP 114/65
[2021-06-20] MEDS: IPRATROPIUM NEB FS 0.5 MG/2.5 ML AMPUL.NEB NEB SCH ×4 (01:40→19:36)
[2021-06-20] MEDS: ALBUTEROL FS 2.5 MG/0.5 ML VIAL.NEB NEB SCH ×4 (01:40→19:36)
[2021-06-20] MEDS: POLYVINYL ALCOHOL 15 ML BOTTLE OP SCH ×3 (05:32→17:59)
[2021-06-20 07:47] VITALS: BP 82/57
[2021-06-20] MEDS: HYDROGEN PEROXIDE 480 ML BOTTLE TP SCH ×2 (08:09→19:36)
[2021-06-20] MEDS: LISINOPRIL (5MG) 5 MG TABLET GT SCH (09:00)
[2021-06-20] MEDS: FOLIC ACID 1 MG TABLET GT SCH (09:38)
[2021-06-20] MEDS: BICALUTAMIDE 50 MG TABLET GT SCH (09:38)
[2021-06-20] MEDS: TIMOLOL 0.5% SOLN OPHTH 5 ML BOTTLE EACHEYE SCH ×2 (09:38→17:59)
[2021-06-20] MEDS: ARGININE/GLUTAMINE/CALCIUM BMB 1 EACH POWD.PACK GT SCH ×2 (09:38→17:59)
[2021-06-20] MEDS: DOCUSATE SODIUM LIQ 100 MG/10 ML UDC GT SCH ×2 (09:38→17:59)
[2021-06-20] MEDS: LORATADINE 10 MG TABLET GT SCH (09:38)
[2021-06-20] MEDS: FERROUS SULFATE - FOR SA ONLY 330 MG/7.5 ML UDC GT SCH ×2 (09:38→17:59)
[2021-06-20] MEDS: [UNRECOGNIZED DRUG - OTHER] GT SCH (09:39)
[2021-06-20] MEDS: BACLOFEN (10 MG) 10 MG TABLET GT SCH (09:39)
[2021-06-20] MEDS: HYDROCODONE/APAP 5/325MG TABLET GT SCH (09:39)
[2021-06-20] MEDS: Z GUARD REMEDY 4 OZ OINT TP SCH ×2 (09:40→20:41)
[2021-06-20] MEDS: MULTIVIT W/MINERALS 1 TAB TABLET GT SCH (09:40)
[2021-06-20] MEDS: PYRIDOXINE HCL 50 MG TABLET GT SCH (09:40)
[2021-06-20] MEDS: DAKINS HALF STRENGTH (0.25%) 480 ML BOTTLE TOP SCH (09:40)
[2021-06-20] MEDS: POVIDONE-IODINE OINT 28.4 GM TUBE TP SCH ×4 (09:40)
[2021-06-20] MEDS: PROSOURCE / PROSTAT (PYXIS) 30 ML UDC GT SCH ×4 (09:40→20:41)
[2021-06-20] MEDS: PANTOPRAZOLE 40 MG/PACK PACK GT SCH (09:40)
[2021-06-20] MEDS: VITAMINS A AND D 56.7 GM TUBE TP SCH ×3 (09:41→20:41)
[2021-06-20 20:14] VITALS: BP 116/77
[2021-06-20] MEDS: LATANOPROST EYE DROP 0.005% 2.5 ML BOTTLE EACHEYE SCH (21:19)
[2021-06-20] MEDS: ATORVASTATIN 40 MG TABLET GT SCH (21:19)
[2021-06-21] MEDS: POLYVINYL ALCOHOL 15 ML BOTTLE OP SCH ×4 (00:26→18:08)
[2021-06-21] MEDS: JEVITY 1.2 CAL 1,000 ML BOTTLE GT PRN (00:33)
[2021-06-21] MEDS: IPRATROPIUM NEB FS 0.5 MG/2.5 ML AMPUL.NEB NEB SCH ×4 (01:53→20:17)
[2021-06-21] MEDS: ALBUTEROL FS 2.5 MG/0.5 ML VIAL.NEB NEB SCH ×4 (01:53→20:17)
[2021-06-21 08:00] VITALS: BP 117/70
[2021-06-21] MEDS: FOLIC ACID 1 MG TABLET GT SCH (08:35)
[2021-06-21] MEDS: BACLOFEN (10 MG) 10 MG TABLET GT SCH (08:35)
[2021-06-21] MEDS: FERROUS SULFATE - FOR SA ONLY 330 MG/7.5 ML UDC GT SCH ×2 (08:35→17:06)
[2021-06-21] MEDS: ARGININE/GLUTAMINE/CALCIUM BMB 1 EACH POWD.PACK GT SCH ×2 (08:35→17:06)
[2021-06-21] MEDS: LORATADINE 10 MG TABLET GT SCH (08:35)
[2021-06-21] MEDS: DOCUSATE SODIUM LIQ 100 MG/10 ML UDC GT SCH ×2 (08:35→17:06)
[2021-06-21] MEDS: TIMOLOL 0.5% SOLN OPHTH 5 ML BOTTLE EACHEYE SCH ×2 (08:35→17:06)
[2021-06-21] MEDS: BICALUTAMIDE 50 MG TABLET GT SCH (08:35)
[2021-06-21] MEDS: PYRIDOXINE HCL 50 MG TABLET GT SCH (08:36)
[2021-06-21] MEDS: PROSOURCE / PROSTAT (PYXIS) 30 ML UDC GT SCH ×4 (08:36→21:17)
[2021-06-21] MEDS: MULTIVIT W/MINERALS 1 TAB TABLET GT SCH (08:36)
[2021-06-21] MEDS: LISINOPRIL (5MG) 5 MG TABLET GT SCH (08:36)
[2021-06-21] MEDS: PANTOPRAZOLE 40 MG/PACK PACK GT SCH (08:36)
[2021-06-21] MEDS: HYDROCODONE/APAP 5/325MG TABLET GT SCH (08:36)
[2021-06-21] MEDS: HYDROGEN PEROXIDE 480 ML BOTTLE TP SCH ×2 (08:44→20:17)
[2021-06-21] MEDS: POVIDONE-IODINE OINT 28.4 GM TUBE TP SCH ×4 (09:00)
[2021-06-21] MEDS: VITAMINS A AND D 56.7 GM TUBE TP SCH ×3 (09:00→21:17)
[2021-06-21] MEDS: Z GUARD REMEDY 4 OZ OINT TP SCH ×2 (09:00→21:17)
[2021-06-21] MEDS: DAKINS HALF STRENGTH (0.25%) 480 ML BOTTLE TOP SCH (09:00)
[2021-06-21 09:14] LABS: BASOPHILS % (AUTO) 0.6 % (0.0-2.0); EOSINOPHILS % (AUTO) 2.6 % (0.0-6.0); HEMATOCRIT 29 % (39-51); HEMOGLOBIN 9.1 g/dL (13.5-17.5); LYMPHOCYTES % (AUTO) 14.3 % (20.0-44.0); MEAN CORPUSCULAR HGB CONC 31 g/dl (31.0-36.0); MEAN CORPUSCULAR VOLUME 90 fL (80-96); MONOCYTES # (AUTO) 0.8 K/uL (0.1-1.30); NEUTROPHILS # (AUTO) 4.9 K/uL (1.8-8.9); NEUTROPHILS % (AUTO) 70.5 % (43.0-81.0); PLATELET COUNT (AUTO) 315 K/uL (150-450); RED BLOOD CELL COUNT(AUTO) 3.27 MIL/uL (4.5-6.0)
--- NOTE | 2021-06-21 15:54 | NUR ---
Optometry exam completed: Pt. was seen by Cutting Inspector, Dr. Beasley [phone] today for eye & vision exam. MAURICIO placed MD progress note in pt.'s chart.
[2021-06-21 20:14] VITALS: BP 97/60
[2021-06-21] MEDS: LATANOPROST EYE DROP 0.005% 2.5 ML BOTTLE EACHEYE SCH (21:18)
[2021-06-21] MEDS: ATORVASTATIN 40 MG TABLET GT SCH (21:18)
[2021-06-22] MEDS: POLYVINYL ALCOHOL 15 ML BOTTLE OP SCH ×4 (00:24→17:11)
[2021-06-22] MEDS: IPRATROPIUM NEB FS 0.5 MG/2.5 ML AMPUL.NEB NEB SCH ×4 (00:37→20:05)
[2021-06-22] MEDS: ALBUTEROL FS 2.5 MG/0.5 ML VIAL.NEB NEB SCH ×4 (00:37→20:05)
[2021-06-22] MEDS: JEVITY 1.2 CAL 1,000 ML BOTTLE GT PRN (05:41)
[2021-06-22 07:34] VITALS: BP 104/59
[2021-06-22] MEDS: HYDROGEN PEROXIDE 480 ML BOTTLE TP SCH ×2 (08:12→20:41)
--- NOTE | 2021-06-22 08:30 | NUR ---
Seen and examined by Dr. Sullivan, no new order given.
[2021-06-22] MEDS: Z GUARD REMEDY 4 OZ OINT TP SCH ×2 (09:00→20:50)
[2021-06-22] MEDS: VITAMINS A AND D 56.7 GM TUBE TP SCH ×3 (09:00→20:50)
[2021-06-22] MEDS: POVIDONE-IODINE OINT 28.4 GM TUBE TP SCH ×4 (09:00)
[2021-06-22] MEDS: LISINOPRIL (5MG) 5 MG TABLET GT SCH (09:00)
[2021-06-22] MEDS: DAKINS HALF STRENGTH (0.25%) 480 ML BOTTLE TOP SCH (09:00)
[2021-06-22] MEDS: BICALUTAMIDE 50 MG TABLET GT SCH (09:11)
[2021-06-22] MEDS: FERROUS SULFATE - FOR SA ONLY 330 MG/7.5 ML UDC GT SCH ×2 (09:11→17:05)
[2021-06-22] MEDS: DOCUSATE SODIUM LIQ 100 MG/10 ML UDC GT SCH ×2 (09:11→17:05)
[2021-06-22] MEDS: TIMOLOL 0.5% SOLN OPHTH 5 ML BOTTLE EACHEYE SCH ×2 (09:11→17:05)
[2021-06-22] MEDS: ARGININE/GLUTAMINE/CALCIUM BMB 1 EACH POWD.PACK GT SCH ×2 (09:11→17:05)
[2021-06-22] MEDS: LORATADINE 10 MG TABLET GT SCH (09:11)
[2021-06-22] MEDS: BACLOFEN (10 MG) 10 MG TABLET GT SCH (09:11)
[2021-06-22] MEDS: FOLIC ACID 1 MG TABLET GT SCH (09:11)
[2021-06-22] MEDS: [UNRECOGNIZED DRUG - OTHER] GT SCH (09:11)
[2021-06-22] MEDS: MULTIVIT W/MINERALS 1 TAB TABLET GT SCH (09:12)
[2021-06-22] MEDS: PROSOURCE / PROSTAT (PYXIS) 30 ML UDC GT SCH ×4 (09:12→20:50)
[2021-06-22] MEDS: PYRIDOXINE HCL 50 MG TABLET GT SCH (09:12)
[2021-06-22] MEDS: PANTOPRAZOLE 40 MG/PACK PACK GT SCH (09:12)
[2021-06-22] MEDS: HYDROCODONE/APAP 5/325MG TABLET GT SCH (09:12)
[2021-06-22 13:29] VITALS: BP 126/67
[2021-06-22 20:31] VITALS: BP 114/67
[2021-06-22] MEDS: LATANOPROST EYE DROP 0.005% 2.5 ML BOTTLE EACHEYE SCH (21:24)
[2021-06-22] MEDS: ATORVASTATIN 40 MG TABLET GT SCH (21:24)
[2021-06-23] MEDS: POLYVINYL ALCOHOL 15 ML BOTTLE OP SCH ×5 (00:22→23:46)
[2021-06-23 01:17] VITALS: BP 110/60
[2021-06-23] MEDS: IPRATROPIUM NEB FS 0.5 MG/2.5 ML AMPUL.NEB NEB SCH ×4 (02:02→20:09)
[2021-06-23] MEDS: ALBUTEROL FS 2.5 MG/0.5 ML VIAL.NEB NEB SCH ×4 (02:02→20:09)
--- NOTE | 2021-06-23 06:00 | NUR ---
RN NOTES Noted pt with large amount of coffee ground emesis. Suctioned well to prevent aspiration. Pt in stable condition. No SOB or resp distress noted. Feeding held. Called Dr. Santillan with new orders for CBS, CMP, D5NS @80ml/hr, Protonix 40mg IV, hold GTF until further orders, noted and carried out. Asked if he wanted to do CXR or KUB, stated not for now. Started pt on D5NS @ 80ml/hr and started on Protonix 40mg IV, as ordered. Will endorse to following shift.
[2021-06-23] MEDS ORDERED: PANTOPRAZOLE 40 MG VIAL ONE (06:10)
[2021-06-23 07:23] LABS: ALBUMIN 1.5 g/dL (3.4-5.0); BILIRUBIN,TOTAL 0.3 mg/dL (0.2-1.0); CALCIUM, SERUM 9.1 mg/dL (8.5-10.1); CREATININE 0.8 mg/dL (0.6-1.3); POTASSIUM 4.3 mmol/L (3.5-5.1); TOTAL PROTEIN, SERUM 7.1 g/dL (6.4-8.2)
[2021-06-23 07:25] VITALS: BP 104/59
[2021-06-23] MEDS: HYDROGEN PEROXIDE 480 ML BOTTLE TP SCH ×2 (08:06→20:09)
[2021-06-23] MEDS: PYRIDOXINE HCL 50 MG TABLET GT SCH (09:00)
[2021-06-23] MEDS: HYDROCODONE/APAP 5/325MG TABLET GT SCH (09:00)
[2021-06-23] MEDS: FOLIC ACID 1 MG TABLET GT SCH (09:00)
[2021-06-23] MEDS: BACLOFEN (10 MG) 10 MG TABLET GT SCH (09:00)
[2021-06-23] MEDS: Z GUARD REMEDY 4 OZ OINT TP SCH ×2 (09:00→21:38)
[2021-06-23] MEDS: ARGININE/GLUTAMINE/CALCIUM BMB 1 EACH POWD.PACK GT SCH ×2 (09:00→16:30)
[2021-06-23] MEDS: LORATADINE 10 MG TABLET GT SCH (09:00)
[2021-06-23] MEDS: LISINOPRIL (5MG) 5 MG TABLET GT SCH (09:00)
[2021-06-23] MEDS: BICALUTAMIDE 50 MG TABLET GT SCH (09:00)
[2021-06-23] MEDS: PANTOPRAZOLE 40 MG VIAL IV SCH (09:00)
[2021-06-23] MEDS: TIMOLOL 0.5% SOLN OPHTH 5 ML BOTTLE EACHEYE SCH ×2 (09:00→16:30)
[2021-06-23] MEDS: FERROUS SULFATE - FOR SA ONLY 330 MG/7.5 ML UDC GT SCH ×2 (09:00→16:30)
[2021-06-23] MEDS: POVIDONE-IODINE OINT 28.4 GM TUBE TP SCH ×4 (09:00)
[2021-06-23] MEDS: VITAMINS A AND D 56.7 GM TUBE TP SCH ×3 (09:00→21:38)
[2021-06-23] MEDS: MULTIVIT W/MINERALS 1 TAB TABLET GT SCH (09:00)
[2021-06-23] MEDS: PROSOURCE / PROSTAT (PYXIS) 30 ML UDC GT SCH ×4 (09:00→21:37)
[2021-06-23] MEDS: DAKINS HALF STRENGTH (0.25%) 480 ML BOTTLE TOP SCH (09:00)
[2021-06-23] MEDS: DOCUSATE SODIUM LIQ 100 MG/10 ML UDC GT SCH ×2 (09:00→16:30)
--- NOTE | 2021-06-23 11:17 | NUR ---
Relayed BMP result to Dr Santillan. CBC still pending. Dr Santillan ordered to repeat CBC and BMP tomorrow.
[2021-06-23 12:17] LABS: BASOPHILS % (AUTO) 0.3 % (0.0-2.0); EOSINOPHILS % (AUTO) 0.2 % (0.0-6.0); HEMATOCRIT 28 % (39-51); HEMOGLOBIN 8.8 g/dL (13.5-17.5); LYMPHOCYTES # (AUTO) 0.5 K/uL (0.8-4.8); LYMPHOCYTES % (AUTO) 6.5 % (20.0-44.0); MEAN CORPUSCULAR HGB CONC 31 g/dl (31.0-36.0); MEAN CORPUSCULAR VOLUME 89 fL (80-96); MONOCYTES # (AUTO) 0.4 K/uL (0.1-1.30); MONOCYTES % (AUTO) 6.2 % (2.0-12.0); NEUTROPHILS # (AUTO) 6.1 K/uL (1.8-8.9); NEUTROPHILS % (AUTO) 86.8 % (43.0-81.0); PLATELET COUNT (AUTO) 309 K/uL (150-450); RED BLOOD CELL COUNT(AUTO) 3.16 MIL/uL (4.5-6.0)
[2021-06-23 13:10] VITALS: BP 128/61
[2021-06-23 20:10] VITALS: BP 143/91
[2021-06-23] MEDS: IV D5/ 0.9% NACL 1,000 ML IV PRN (20:40)
[2021-06-23] MEDS: ONDANSETRON 4 MG TAB.RAPDIS GT PRN (21:38)
[2021-06-23] MEDS: ACETAMINOPHEN SUP SA PATIENTS 650 MG SUPP RC PRN (21:38)
[2021-06-23] MEDS: ATORVASTATIN 40 MG TABLET GT SCH (21:38)
[2021-06-23] MEDS: LATANOPROST EYE DROP 0.005% 2.5 ML BOTTLE EACHEYE SCH (21:38)
[2021-06-23] MEDS: MAGNESIUM HYDROXIDE 30 ML UDC GT PRN (22:00)
[2021-06-24] MEDS: IPRATROPIUM NEB FS 0.5 MG/2.5 ML AMPUL.NEB NEB SCH ×4 (01:32→19:54)
[2021-06-24] MEDS: ALBUTEROL FS 2.5 MG/0.5 ML VIAL.NEB NEB SCH ×4 (01:32→19:54)
[2021-06-24] MEDS: POLYVINYL ALCOHOL 15 ML BOTTLE OP SCH ×4 (05:22→23:32)
[2021-06-24] MEDS: BISACODYL SUPP (10 MG) 10 MG/SUPP.RECT SUPP.RECT RC PRN (06:40)
[2021-06-24 06:58] LABS: BASOPHILS % (AUTO) 0.5 % (0.0-2.0); EOSINOPHILS % (AUTO) 1.4 % (0.0-6.0); HEMATOCRIT 26 % (39-51); HEMOGLOBIN 8.3 g/dL (13.5-17.5); LYMPHOCYTES # (AUTO) 0.9 K/uL (0.8-4.8); LYMPHOCYTES % (AUTO) 15.9 % (20.0-44.0); MEAN CORPUSCULAR HGB CONC 32 g/dl (31.0-36.0); MEAN CORPUSCULAR VOLUME 89 fL (80-96); MONOCYTES # (AUTO) 0.6 K/uL (0.1-1.30); NEUTROPHILS # (AUTO) 3.9 K/uL (1.8-8.9); NEUTROPHILS % (AUTO) 71.2 % (43.0-81.0); PLATELET COUNT (AUTO) 282 K/uL (150-450); RED BLOOD CELL COUNT(AUTO) 2.89 MIL/uL (4.5-6.0); WHITE BLOOD COUNT (AUTO) 5.4 K/uL (4.3-11.0)
[2021-06-24 07:15] LABS: CALCIUM, SERUM 9.1 mg/dL (8.5-10.1); CREATININE 0.8 mg/dL (0.6-1.3); POTASSIUM 3.7 mmol/L (3.5-5.1)
[2021-06-24 08:00] VITALS: BP 120/70
[2021-06-24] MEDS: HYDROGEN PEROXIDE 480 ML BOTTLE TP SCH ×2 (08:37→19:54)
--- NOTE | 2021-06-24 09:04 | NUR ---
Called pt's sister Shae. Informed her that pt vomited coffee ground liquid yesterday, pt on Protonix IV and IV fluids. Also informed her of pt's labs. Pt has not vomited again after the episode yesterday.
[2021-06-24] MEDS: BICALUTAMIDE 50 MG TABLET GT SCH (09:10)
[2021-06-24] MEDS: TIMOLOL 0.5% SOLN OPHTH 5 ML BOTTLE EACHEYE SCH ×2 (09:10→17:07)
[2021-06-24] MEDS: FOLIC ACID 1 MG TABLET GT SCH (09:10)
[2021-06-24] MEDS: ARGININE/GLUTAMINE/CALCIUM BMB 1 EACH POWD.PACK GT SCH ×2 (09:10→17:08)
[2021-06-24] MEDS: FERROUS SULFATE - FOR SA ONLY 330 MG/7.5 ML UDC GT SCH ×2 (09:10→17:28)
[2021-06-24] MEDS: LORATADINE 10 MG TABLET GT SCH (09:10)
[2021-06-24] MEDS: DOCUSATE SODIUM LIQ 100 MG/10 ML UDC GT SCH ×2 (09:10→17:07)
[2021-06-24] MEDS: LISINOPRIL (5MG) 5 MG TABLET GT SCH (09:11)
[2021-06-24] MEDS: MULTIVIT W/MINERALS 1 TAB TABLET GT SCH (09:11)
[2021-06-24] MEDS: HYDROCODONE/APAP 5/325MG TABLET GT SCH (09:11)
[2021-06-24] MEDS: PYRIDOXINE HCL 50 MG TABLET GT SCH (09:11)
[2021-06-24] MEDS: [UNRECOGNIZED DRUG - OTHER] GT SCH (09:11)
[2021-06-24] MEDS: BACLOFEN (10 MG) 10 MG TABLET GT SCH (09:11)
[2021-06-24] MEDS: PROSOURCE / PROSTAT (PYXIS) 30 ML UDC GT SCH ×4 (09:11→21:33)
[2021-06-24] MEDS: PANTOPRAZOLE 40 MG VIAL IV SCH (09:12)
[2021-06-24] MEDS: DAKINS HALF STRENGTH (0.25%) 480 ML BOTTLE TOP SCH (10:00)
[2021-06-24] MEDS: Z GUARD REMEDY 4 OZ OINT TP SCH ×2 (10:00→21:33)
[2021-06-24] MEDS: VITAMINS A AND D 56.7 GM TUBE TP SCH ×3 (10:00→21:33)
[2021-06-24] MEDS: POVIDONE-IODINE OINT 28.4 GM TUBE TP SCH ×4 (10:00)
--- NOTE | 2021-06-24 16:00 | NUR ---
Informed Dr Santillan that pt has not vomited since the episode yesterday. Relayed lab results to him. He ordered to restart GT feeding slowly until goal rate is reached. Pt still on D5NS at 80 mL/hr IV.
[2021-06-24] MEDS: ACETAMINOPHEN 650 MG/20 ML UDC- SA PATIENTS-PAIN ONLY GT PRN (17:29)
[2021-06-24] MEDS: JEVITY 1.2 CAL 1,000 ML BOTTLE GT PRN (18:04)
[2021-06-24 20:06] VITALS: BP 117/48
--- NOTE | 2021-06-24 20:08 | NUR ---
Seen and examined by ANGELLA Porras.No new orders given at this time.
[2021-06-24] MEDS: ATORVASTATIN 40 MG TABLET GT SCH (21:34)
[2021-06-24] MEDS: LATANOPROST EYE DROP 0.005% 2.5 ML BOTTLE EACHEYE SCH (21:34)
[2021-06-24] MEDS: IV D5/ 0.9% NACL 1,000 ML IV PRN (23:09)
[2021-06-24 23:38] VITALS: BP 103/68
[2021-06-25] MEDS: ALBUTEROL FS 2.5 MG/0.5 ML VIAL.NEB NEB SCH ×4 (02:00→20:01)
[2021-06-25] MEDS: IPRATROPIUM NEB FS 0.5 MG/2.5 ML AMPUL.NEB NEB SCH ×4 (02:00→20:01)
[2021-06-25] MEDS: POLYVINYL ALCOHOL 15 ML BOTTLE OP SCH ×4 (05:19→23:17)
--- NOTE | 2021-06-25 05:34 | NUR ---
Patient had no emesis ,noted. Gastric residual minimal amount. Will increased GT feeding to 30ml/hr until goal reached. Head of the bed elevated. Still on IV hydration 80 ml/hr until further order.
[2021-06-25 08:00] VITALS: BP 110/65
[2021-06-25] MEDS: TIMOLOL 0.5% SOLN OPHTH 5 ML BOTTLE EACHEYE SCH ×2 (08:31→17:02)
[2021-06-25] MEDS: FERROUS SULFATE - FOR SA ONLY 330 MG/7.5 ML UDC GT SCH ×2 (08:32→17:05)
[2021-06-25] MEDS: DOCUSATE SODIUM LIQ 100 MG/10 ML UDC GT SCH ×2 (08:32→17:05)
[2021-06-25] MEDS: LISINOPRIL (5MG) 5 MG TABLET GT SCH (08:32)
[2021-06-25] MEDS: PROSOURCE / PROSTAT (PYXIS) 30 ML UDC GT SCH ×4 (08:33→21:10)
[2021-06-25] MEDS: MULTIVIT W/MINERALS 1 TAB TABLET GT SCH (08:33)
[2021-06-25] MEDS: FOLIC ACID 1 MG TABLET GT SCH (08:37)
[2021-06-25] MEDS: BACLOFEN (10 MG) 10 MG TABLET GT SCH (08:37)
[2021-06-25] MEDS: BICALUTAMIDE 50 MG TABLET GT SCH (08:37)
[2021-06-25] MEDS: LORATADINE 10 MG TABLET GT SCH (08:37)
[2021-06-25] MEDS: PYRIDOXINE HCL 50 MG TABLET GT SCH (08:38)
[2021-06-25] MEDS: HYDROCODONE/APAP 5/325MG TABLET GT SCH (08:38)
[2021-06-25] MEDS: HYDROGEN PEROXIDE 480 ML BOTTLE TP SCH ×2 (08:39→20:02)
[2021-06-25] MEDS: DAKINS HALF STRENGTH (0.25%) 480 ML BOTTLE TOP SCH (08:39)
[2021-06-25] MEDS: Z GUARD REMEDY 4 OZ OINT TP SCH ×2 (08:39→21:10)
[2021-06-25] MEDS: POVIDONE-IODINE OINT 28.4 GM TUBE TP SCH ×4 (08:39)
[2021-06-25] MEDS: VITAMINS A AND D 56.7 GM TUBE TP SCH ×3 (08:40→21:10)
[2021-06-25] MEDS: ARGININE/GLUTAMINE/CALCIUM BMB 1 EACH POWD.PACK GT SCH ×2 (09:02→17:05)
[2021-06-25] MEDS: PANTOPRAZOLE 40 MG VIAL IV SCH (09:27)
[2021-06-25] MEDS: IV D5/ 0.9% NACL 1,000 ML IV PRN (11:08)
--- NOTE | 2021-06-25 14:00 | NUR ---
Left knee and right hip debridement done by BRITTNI Nobles, tolerated well, minimal bleeding noted. Gave new tx order to left knee wound.
--- NOTE | 2021-06-25 18:18 | NUR ---
No vomiting noted the whole shift, afebrile. GT increased to goal rate of 45 ml/hr x 20 at 1800. Will continue to monitor.
[2021-06-25 20:00] VITALS: BP 116/71
[2021-06-25] MEDS: MAGNESIUM HYDROXIDE 30 ML UDC GT PRN (21:00)
[2021-06-25] MEDS: ATORVASTATIN 40 MG TABLET GT SCH (21:11)
[2021-06-25] MEDS: LATANOPROST EYE DROP 0.005% 2.5 ML BOTTLE EACHEYE SCH (21:11)
[2021-06-26 00:16] VITALS: BP 110/68
[2021-06-26] MEDS: IV D5/ 0.9% NACL 1,000 ML IV PRN (00:28)
[2021-06-26] MEDS: IPRATROPIUM NEB FS 0.5 MG/2.5 ML AMPUL.NEB NEB SCH ×4 (01:53→20:07)
[2021-06-26] MEDS: ALBUTEROL FS 2.5 MG/0.5 ML VIAL.NEB NEB SCH ×4 (01:53→20:07)
--- NOTE | 2021-06-26 03:37 | NUR ---
PATIENT RECEIVED ON TRACH TO VENT WITH SETTINGS OF AC 14, 450 Vt, 40%, +5. SUCTIONED WITH LAVAGE FOR MINIMAL, THICK, YELLOW-CREAM SECRETIONS. GIVEN IN-LINE TREATMENTS WITH NO ADVERSE REACTIONS. AMBU BAG AT BEDSIDE. VENT AND PULSE OXIMETER ALARMS AUDIBLE AND VISIBLE. TRACH CARE DONE. Addendum: 06/26/21 at 0338 by JAKI PASCAL RT Amended: Links added.
[2021-06-26] MEDS: POLYVINYL ALCOHOL 15 ML BOTTLE OP SCH ×4 (05:13→23:22)
[2021-06-26] MEDS: JEVITY 1.2 CAL 1,000 ML BOTTLE GT PRN (05:14)
--- NOTE | 2021-06-26 05:53 | NUR ---
Patient tolerated feeding ,minimal gastric residual,no emesis. Still on IV hydration D5 NS 80ml/hr. Will endorse to oncoming to ask MD if can discontinue hydration ,patient tolerating GT feeding. Will continue to monitor.
[2021-06-26] MEDS: BISACODYL SUPP (10 MG) 10 MG/SUPP.RECT SUPP.RECT RC PRN (07:05)
[2021-06-26 07:40] VITALS: BP 104/63
[2021-06-26] MEDS: HYDROGEN PEROXIDE 480 ML BOTTLE TP SCH ×2 (09:00→20:07)
[2021-06-26] MEDS: LISINOPRIL (5MG) 5 MG TABLET GT SCH (09:00)
[2021-06-26] MEDS: POVIDONE-IODINE OINT 28.4 GM TUBE TP SCH ×4 (09:00)
[2021-06-26] MEDS: DAKINS HALF STRENGTH (0.25%) 480 ML BOTTLE TOP SCH (09:00)
[2021-06-26] MEDS: VITAMINS A AND D 56.7 GM TUBE TP SCH ×3 (09:00→20:50)
[2021-06-26] MEDS: THERAHONEY GEL 1.5 OZ TUBE TP SCH (09:00)
[2021-06-26] MEDS: Z GUARD REMEDY 4 OZ OINT TP SCH ×2 (09:00→20:50)
[2021-06-26] MEDS: TIMOLOL 0.5% SOLN OPHTH 5 ML BOTTLE EACHEYE SCH ×2 (09:38→16:25)
[2021-06-26] MEDS: FERROUS SULFATE - FOR SA ONLY 330 MG/7.5 ML UDC GT SCH ×2 (09:40→16:26)
[2021-06-26] MEDS: DOCUSATE SODIUM LIQ 100 MG/10 ML UDC GT SCH ×2 (09:40→16:26)
[2021-06-26] MEDS: BICALUTAMIDE 50 MG TABLET GT SCH (09:44)
[2021-06-26] MEDS: LORATADINE 10 MG TABLET GT SCH (09:44)
[2021-06-26] MEDS: PANTOPRAZOLE 40 MG VIAL IV SCH (09:46)
[2021-06-26] MEDS: FOLIC ACID 1 MG TABLET GT SCH (09:50)
[2021-06-26] MEDS: ARGININE/GLUTAMINE/CALCIUM BMB 1 EACH POWD.PACK GT SCH ×2 (09:51→16:26)
[2021-06-26] MEDS: BACLOFEN (10 MG) 10 MG TABLET GT SCH (09:51)
[2021-06-26] MEDS: [UNRECOGNIZED DRUG - OTHER] GT SCH (09:52)
[2021-06-26] MEDS: HYDROCODONE/APAP 5/325MG TABLET GT SCH (09:52)
[2021-06-26] MEDS: PROSOURCE / PROSTAT (PYXIS) 30 ML UDC GT SCH ×4 (09:53→20:50)
[2021-06-26] MEDS: MULTIVIT W/MINERALS 1 TAB TABLET GT SCH (09:53)
[2021-06-26] MEDS: PYRIDOXINE HCL 50 MG TABLET GT SCH (09:53)
[2021-06-26 13:35] VITALS: BP 109/67
[2021-06-26 20:33] VITALS: BP 124/70
[2021-06-26] MEDS: ATORVASTATIN 40 MG TABLET GT SCH (21:16)
[2021-06-26] MEDS: LATANOPROST EYE DROP 0.005% 2.5 ML BOTTLE EACHEYE SCH (21:16)
[2021-06-27] MEDS: ALBUTEROL FS 2.5 MG/0.5 ML VIAL.NEB NEB SCH ×4 (02:11→20:31)
[2021-06-27] MEDS: IPRATROPIUM NEB FS 0.5 MG/2.5 ML AMPUL.NEB NEB SCH ×4 (02:11→20:30)
[2021-06-27 03:42] VITALS: BP 106/65
[2021-06-27] MEDS: POLYVINYL ALCOHOL 15 ML BOTTLE OP SCH ×3 (05:37→18:24)
[2021-06-27 07:48] VITALS: BP 86/55
[2021-06-27] MEDS: Z GUARD REMEDY 4 OZ OINT TP SCH ×2 (09:00→20:27)
[2021-06-27] MEDS: THERAHONEY GEL 1.5 OZ TUBE TP SCH (09:00)
[2021-06-27] MEDS: LISINOPRIL (5MG) 5 MG TABLET GT SCH (09:00)
[2021-06-27] MEDS: VITAMINS A AND D 56.7 GM TUBE TP SCH ×3 (09:00→20:27)
[2021-06-27] MEDS: LORATADINE 10 MG TABLET GT SCH (09:28)
[2021-06-27] MEDS: BACLOFEN (10 MG) 10 MG TABLET GT SCH (09:28)
[2021-06-27] MEDS: ARGININE/GLUTAMINE/CALCIUM BMB 1 EACH POWD.PACK GT SCH ×2 (09:28→16:23)
[2021-06-27] MEDS: FOLIC ACID 1 MG TABLET GT SCH (09:28)
[2021-06-27] MEDS: DOCUSATE SODIUM LIQ 100 MG/10 ML UDC GT SCH ×2 (09:28→16:23)
[2021-06-27] MEDS: BICALUTAMIDE 50 MG TABLET GT SCH (09:28)
[2021-06-27] MEDS: TIMOLOL 0.5% SOLN OPHTH 5 ML BOTTLE EACHEYE SCH ×2 (09:28→16:23)
[2021-06-27] MEDS: FERROUS SULFATE - FOR SA ONLY 330 MG/7.5 ML UDC GT SCH ×2 (09:28→16:23)
[2021-06-27] MEDS: HYDROCODONE/APAP 5/325MG TABLET GT SCH (09:29)
[2021-06-27] MEDS: DAKINS HALF STRENGTH (0.25%) 480 ML BOTTLE TOP SCH (09:31)
[2021-06-27] MEDS: PYRIDOXINE HCL 50 MG TABLET GT SCH (09:31)
[2021-06-27] MEDS: PROSOURCE / PROSTAT (PYXIS) 30 ML UDC GT SCH ×4 (09:31→20:26)
[2021-06-27] MEDS: POVIDONE-IODINE OINT 28.4 GM TUBE TP SCH ×4 (09:31→09:32)
[2021-06-27] MEDS: MULTIVIT W/MINERALS 1 TAB TABLET GT SCH (09:31)
[2021-06-27] MEDS: HYDROGEN PEROXIDE 480 ML BOTTLE TP SCH ×2 (09:32→20:31)
[2021-06-27] MEDS: PANTOPRAZOLE 40 MG VIAL IV SCH (09:41)
[2021-06-27] MEDS: JEVITY 1.2 CAL 1,000 ML BOTTLE GT PRN (13:12)
[2021-06-27 13:52] VITALS: BP 104/64
[2021-06-27 20:46] VITALS: BP 139/76
[2021-06-27] MEDS: ATORVASTATIN 40 MG TABLET GT SCH (21:14)
[2021-06-27] MEDS: LATANOPROST EYE DROP 0.005% 2.5 ML BOTTLE EACHEYE SCH (21:14)
[2021-06-28] MEDS: POLYVINYL ALCOHOL 15 ML BOTTLE OP SCH ×4 (00:07→18:40)
[2021-06-28] MEDS: IPRATROPIUM NEB FS 0.5 MG/2.5 ML AMPUL.NEB NEB SCH ×4 (01:46→19:30)
[2021-06-28] MEDS: ALBUTEROL FS 2.5 MG/0.5 ML VIAL.NEB NEB SCH ×4 (01:46→19:30)
[2021-06-28 08:00] VITALS: BP 120/72
[2021-06-28] MEDS: FOLIC ACID 1 MG TABLET GT SCH (08:49)
[2021-06-28] MEDS: LORATADINE 10 MG TABLET GT SCH (08:49)
[2021-06-28] MEDS: ARGININE/GLUTAMINE/CALCIUM BMB 1 EACH POWD.PACK GT SCH ×2 (08:49→16:27)
[2021-06-28] MEDS: BICALUTAMIDE 50 MG TABLET GT SCH (08:49)
[2021-06-28] MEDS: FERROUS SULFATE - FOR SA ONLY 330 MG/7.5 ML UDC GT SCH ×2 (08:49→16:27)
[2021-06-28] MEDS: BACLOFEN (10 MG) 10 MG TABLET GT SCH (08:49)
[2021-06-28] MEDS: TIMOLOL 0.5% SOLN OPHTH 5 ML BOTTLE EACHEYE SCH ×2 (08:49→16:27)
[2021-06-28] MEDS: DOCUSATE SODIUM LIQ 100 MG/10 ML UDC GT SCH ×2 (08:49→16:27)
[2021-06-28] MEDS: [UNRECOGNIZED DRUG - OTHER] GT SCH (08:49)
[2021-06-28] MEDS: MULTIVIT W/MINERALS 1 TAB TABLET GT SCH (08:50)
[2021-06-28] MEDS: PROSOURCE / PROSTAT (PYXIS) 30 ML UDC GT SCH ×4 (08:50→20:43)
[2021-06-28] MEDS: HYDROCODONE/APAP 5/325MG TABLET GT SCH (08:50)
[2021-06-28] MEDS: PYRIDOXINE HCL 50 MG TABLET GT SCH (08:50)
[2021-06-28] MEDS: LISINOPRIL (5MG) 5 MG TABLET GT SCH (08:50)
[2021-06-28] MEDS: PANTOPRAZOLE 40 MG VIAL IV SCH (09:00)
[2021-06-28] MEDS: DAKINS HALF STRENGTH (0.25%) 480 ML BOTTLE TOP SCH (09:00)
[2021-06-28] MEDS: VITAMINS A AND D 56.7 GM TUBE TP SCH ×3 (09:00→20:43)
[2021-06-28] MEDS: Z GUARD REMEDY 4 OZ OINT TP SCH ×2 (09:00→20:43)
[2021-06-28] MEDS: THERAHONEY GEL 1.5 OZ TUBE TP SCH (09:00)
[2021-06-28] MEDS: POVIDONE-IODINE OINT 28.4 GM TUBE TP SCH ×4 (09:00)
[2021-06-28] MEDS: HYDROGEN PEROXIDE 480 ML BOTTLE TP SCH ×2 (09:26→20:50)
--- NOTE | 2021-06-28 10:20 | NUR ---
Received order to increase GT feeding rate to meet caloric needs per dietary recommendation. Pt now on Jevity 1.2 at 65 mL/hr for 20 hours a day. Notified pt's sister.
[2021-06-28] MEDS: JEVITY 1.2 CAL 1,000 ML BOTTLE GT PRN (12:03)
[2021-06-28 20:04] VITALS: BP 122/76
[2021-06-28] MEDS: LATANOPROST EYE DROP 0.005% 2.5 ML BOTTLE EACHEYE SCH (21:15)
[2021-06-28] MEDS: ATORVASTATIN 40 MG TABLET GT SCH (21:15)
[2021-06-29] MEDS: POLYVINYL ALCOHOL 15 ML BOTTLE OP SCH ×5 (00:25→23:41)
[2021-06-29] MEDS: IPRATROPIUM NEB FS 0.5 MG/2.5 ML AMPUL.NEB NEB SCH ×4 (01:30→20:09)
[2021-06-29] MEDS: ALBUTEROL FS 2.5 MG/0.5 ML VIAL.NEB NEB SCH ×4 (01:30→20:09)
[2021-06-29 07:17] VITALS: BP 138/101
[2021-06-29] MEDS: BACLOFEN (10 MG) 10 MG TABLET GT SCH (08:18)
[2021-06-29] MEDS: FERROUS SULFATE - FOR SA ONLY 330 MG/7.5 ML UDC GT SCH ×2 (08:18→16:44)
[2021-06-29] MEDS: BICALUTAMIDE 50 MG TABLET GT SCH (08:18)
[2021-06-29] MEDS: ARGININE/GLUTAMINE/CALCIUM BMB 1 EACH POWD.PACK GT SCH ×2 (08:18→16:44)
[2021-06-29] MEDS: LORATADINE 10 MG TABLET GT SCH (08:18)
[2021-06-29] MEDS: TIMOLOL 0.5% SOLN OPHTH 5 ML BOTTLE EACHEYE SCH ×2 (08:18→16:44)
[2021-06-29] MEDS: FOLIC ACID 1 MG TABLET GT SCH (08:18)
[2021-06-29] MEDS: DOCUSATE SODIUM LIQ 100 MG/10 ML UDC GT SCH ×2 (08:18→16:44)
[2021-06-29] MEDS: PYRIDOXINE HCL 50 MG TABLET GT SCH (08:19)
[2021-06-29] MEDS: HYDROCODONE/APAP 5/325MG TABLET GT SCH (08:19)
[2021-06-29] MEDS: LISINOPRIL (5MG) 5 MG TABLET GT SCH (08:19)
[2021-06-29] MEDS: PROSOURCE / PROSTAT (PYXIS) 30 ML UDC GT SCH ×4 (08:19→21:33)
[2021-06-29] MEDS: MULTIVIT W/MINERALS 1 TAB TABLET GT SCH (08:19)
[2021-06-29] MEDS: Z GUARD REMEDY 4 OZ OINT TP SCH ×2 (09:00→21:33)
[2021-06-29] MEDS: DAKINS HALF STRENGTH (0.25%) 480 ML BOTTLE TOP SCH (09:00)
[2021-06-29] MEDS: VITAMINS A AND D 56.7 GM TUBE TP SCH ×3 (09:00→21:33)
[2021-06-29] MEDS: POVIDONE-IODINE OINT 28.4 GM TUBE TP SCH ×4 (09:00)
[2021-06-29] MEDS: THERAHONEY GEL 1.5 OZ TUBE TP SCH (09:00)
[2021-06-29] MEDS: HYDROGEN PEROXIDE 480 ML BOTTLE TP SCH ×2 (09:11→23:55)
[2021-06-29 11:34] VITALS: BP 126/85
--- NOTE | 2021-06-29 17:00 | NUR ---
Kumar catheter is clogged. Pt only has 300 mL of urine in the bag and there is no urine draining through the tubing. Bladder distended, pt appears to be in pain, HR 130. Replaced Kumar catheter without any resistance and obtained 500 mL of blood-tinged urine. Pt appears comfortable, HR 108.
[2021-06-29] MEDS: JEVITY 1.2 CAL 1,000 ML BOTTLE GT PRN (18:48)
[2021-06-29 20:21] VITALS: BP 133/75
[2021-06-29] MEDS: ATORVASTATIN 40 MG TABLET GT SCH (21:33)
[2021-06-29] MEDS: LATANOPROST EYE DROP 0.005% 2.5 ML BOTTLE EACHEYE SCH (21:33)
[2021-06-29] MEDS: ACETAMINOPHEN 650 MG/20 ML UDC- SA PATIENTS-PAIN ONLY GT PRN (21:34)
[2021-06-30] MEDS: ALBUTEROL FS 2.5 MG/0.5 ML VIAL.NEB NEB SCH ×4 (01:53→20:10)
[2021-06-30] MEDS: IPRATROPIUM NEB FS 0.5 MG/2.5 ML AMPUL.NEB NEB SCH ×4 (01:53→20:10)
[2021-06-30 02:32] VITALS: BP 130/71
[2021-06-30] MEDS: HYDROCODONE/APAP 5/325MG TABLET PO PRN (04:07)
[2021-06-30] MEDS: POLYVINYL ALCOHOL 15 ML BOTTLE OP SCH ×4 (05:52→23:17)
[2021-06-30 07:16] VITALS: BP 97/56
[2021-06-30] MEDS: HYDROGEN PEROXIDE 480 ML BOTTLE TP SCH ×2 (08:11→20:10)
[2021-06-30] MEDS: PANTOPRAZOLE 40 MG VIAL IV SCH (09:00)
[2021-06-30] MEDS: BACLOFEN (10 MG) 10 MG TABLET GT SCH (09:00)
[2021-06-30] MEDS: DOCUSATE SODIUM LIQ 100 MG/10 ML UDC GT SCH ×2 (11:00→16:48)
[2021-06-30] MEDS: [UNRECOGNIZED DRUG - OTHER] GT SCH (11:00)
[2021-06-30] MEDS: LISINOPRIL (5MG) 5 MG TABLET GT SCH (11:00)
[2021-06-30] MEDS: BICALUTAMIDE 50 MG TABLET GT SCH (11:00)
[2021-06-30] MEDS: PYRIDOXINE HCL 50 MG TABLET GT SCH (11:00)
[2021-06-30] MEDS: MULTIVIT W/MINERALS 1 TAB TABLET GT SCH (11:00)
[2021-06-30] MEDS: LORATADINE 10 MG TABLET GT SCH (11:00)
[2021-06-30] MEDS: ARGININE/GLUTAMINE/CALCIUM BMB 1 EACH POWD.PACK GT SCH ×2 (11:00→16:48)
[2021-06-30] MEDS: HYDROCODONE/APAP 5/325MG TABLET GT SCH (11:00)
[2021-06-30] MEDS: FERROUS SULFATE - FOR SA ONLY 330 MG/7.5 ML UDC GT SCH ×2 (11:00→16:48)
[2021-06-30] MEDS: FOLIC ACID 1 MG TABLET GT SCH (11:00)
[2021-06-30] MEDS: TIMOLOL 0.5% SOLN OPHTH 5 ML BOTTLE EACHEYE SCH ×2 (11:00→16:48)
[2021-06-30] MEDS: PROSOURCE / PROSTAT (PYXIS) 30 ML UDC GT SCH ×4 (11:00→21:02)
[2021-06-30] MEDS: VITAMINS A AND D 56.7 GM TUBE TP SCH ×3 (12:00→21:02)
[2021-06-30] MEDS: POVIDONE-IODINE OINT 28.4 GM TUBE TP SCH ×4 (12:00)
[2021-06-30] MEDS: Z GUARD REMEDY 4 OZ OINT TP SCH ×2 (12:00→21:02)
[2021-06-30] MEDS: THERAHONEY GEL 1.5 OZ TUBE TP SCH (12:00)
[2021-06-30] MEDS: DAKINS HALF STRENGTH (0.25%) 480 ML BOTTLE TOP SCH (12:00)
[2021-06-30 13:42] VITALS: BP 129/91
--- NOTE | 2021-06-30 13:53 | NUR ---
Seen and examined by Dr. Santillan reported that patient vomited x1 this morning in moderate amount of undigested food. Patient had large BM this morning. Dr. Santillan ordered to hold GT feeding for another 2-3 hours then start feeding with Jevity at 30cc/hr. as tolerated. According to patient's caregiver patient is unable to tolerate increase feeding rate which leads to vomiting. Spoke with senior product integrity engineer and referred family's concern since GT feeding rate was just recently increased. Medical Lead stated that the reason feeding rate was changed was based on plate colorer's recommendation. Dr. Santillan said he will speak with Dr. Hilton, plate colorer regarding patient's GT feeding. Patient's sister Shae informed of vomiting episode and new orders. Appreciated the call. Endorsed to follow up with MD Santillan/Dr. Hilton in AM.
[2021-06-30] MEDS ORDERED: JEVITY 1.2 CAL 1,000 ML BOTTLE GT PRN (17:00)
--- NOTE | 2021-06-30 17:30 | NUR ---
Informed Dr. Santillan that patient's HR ranging from 125-135. New order given for CBC, CMP and chest Xray. Order carried out. Endorsed to incoming shift
--- NOTE | 2021-06-30 20:40 | NUR ---
Attempted to draw blood from right upper arm midline, no blood return noted. Electric Dolly Operator attempted to draw blood x3, unsuccessful. Per lab, will attempt later again, awaiting lab draw.
[2021-06-30] MEDS: LATANOPROST EYE DROP 0.005% 2.5 ML BOTTLE EACHEYE SCH (21:02)
[2021-06-30] MEDS: ATORVASTATIN 40 MG TABLET GT SCH (21:02)
[2021-06-30] MEDS: ACETAMINOPHEN 650 MG/20 ML UDC- SA PATIENTS-PAIN ONLY GT PRN (21:03)
[2021-06-30 21:15] VITALS: BP 138/88
[2021-06-30 23:53] LABS: BASOPHILS % (AUTO) 0.1 % (0.0-2.0); HEMATOCRIT 25 % (39-51); HEMOGLOBIN 7.9 g/dL (13.5-17.5); LYMPHOCYTES # (AUTO) 0.5 K/uL (0.8-4.8); LYMPHOCYTES % (AUTO) 3.1 % (20.0-44.0); MEAN CORPUSCULAR HGB CONC 31 g/dl (31.0-36.0); MEAN CORPUSCULAR VOLUME 89 fL (80-96); MONOCYTES # (AUTO) 0.8 K/uL (0.1-1.30); MONOCYTES % (AUTO) 5.1 % (2.0-12.0); NEUTROPHILS # (AUTO) 13.6 K/uL (1.8-8.9); NEUTROPHILS % (AUTO) 91.7 % (43.0-81.0); PLATELET COUNT (AUTO) 257 K/uL (150-450); RED BLOOD CELL COUNT(AUTO) 2.83 MIL/uL (4.5-6.0); WHITE BLOOD COUNT (AUTO) 14.8 K/uL (4.3-11.0)
[2021-07-01 00:27] LABS: ALANINE AMINOTRANSFERASE 78 U/L (12-78); ALKALINE PHOSPHATASE 199 U/L (46-116); ASPARTATE AMINOTRANSFERASE 91 U/L (15-37); BILIRUBIN,TOTAL 0.4 mg/dL (0.2-1.0); CALCIUM, SERUM 8.8 mg/dL (8.5-10.1); CARBON DIOXIDE 28 mmol/L (21-32); CHLORIDE 109 mmol/L (98-107); CREATININE 1.5 mg/dL (0.6-1.3); GLUCOSE 112 mg/dL (74-106); POTASSIUM 5.2 mmol/L (3.5-5.1); SODIUM SERUM 143 mmol/L (136-145); TOTAL PROTEIN, SERUM 6.3 g/dL (6.4-8.2)
[2021-07-01 00:34] LABS: ALBUMIN 1.2 g/dL (3.4-5.0); UREA NITROGEN, BLOOD 110 mg/dL (7-18)
--- NOTE | 2021-07-01 00:44 | NUR ---
Patient with critical lab BUN 110 and albumin 1.2. Paged Dr. Harper, waiting for any new orders.
[2021-07-01] MEDS: HYDROCODONE/APAP 5/325MG TABLET PO PRN (01:41)
--- NOTE | 2021-07-01 01:41 | NUR ---
Paged Dr. Harper for critical lab values. Awaiting for any new orders. Patient stable, vital signs wnl. No vomiting episodes noted.
--- NOTE | 2021-07-01 01:55 | NUR ---
Spoke with Dr. Harper with new orders to transfer patient to ER. noted and carried out. Koffi supervisor wire rope fabrication made aware. Called Er and Macarena charge nurse mad aware.
[2021-07-01] MEDS: ALBUTEROL FS 2.5 MG/0.5 ML VIAL.NEB NEB SCH (02:07)
[2021-07-01] MEDS: IPRATROPIUM NEB FS 0.5 MG/2.5 ML AMPUL.NEB NEB SCH (02:07)
--- NOTE | 2021-07-01 02:25 | NUR ---
PATIENT TRANSFERRED TO ER SAFELY. MYLES MUSE MADE AWARE.
--- NOTE | 2021-07-01 02:28 | NUR ---
PT TRANSFERRED TO ER AT THIS TIME. PT IS ON LTV VENT AC 14, 450, 40% +5. VENT PLUGGED INTO RED OUTLET. ALARMS ARE AUDIBLE. AMBU BAG AT BEDSIDE. TRACH IS PATENT AND SECURE. WILL CONT TO MONITOR.
[2021-07-01] MEDS ORDERED: ACETAMINOPHEN 650 MG/SUPP.RECT RC ONE (02:45)
[2021-07-01] MEDS ORDERED: CEFEPIME 1 GM VIAL ONE (03:00)
[2021-07-01] MEDS ORDERED: VANCOMYCIN 1 GM VIAL ONE (03:00)
[2021-07-01] MEDS ORDERED: ALBUMIN 25% 50 ML IV ONE (03:23)
[2021-07-01] MEDS ORDERED: CALCIUM CHLORIDE 1,000 MG/10 ML DISP.SYRIN ONE (04:11)
[2021-07-01] MEDS ORDERED: ASPIRIN 325 MG TABLET ONE (04:15)
[2021-07-01] MEDS ORDERED: ALBUTEROL FS 2.5 MG/3 ML VIAL.NEB ONE (04:17)
[2021-07-01] MEDS ORDERED: DEXT15DR6 EACHEYE (09:50)
[2021-07-01] MEDS ORDERED: HYDR-4209 GT (09:50)
[2021-07-01] MEDS ORDERED: ENOX40DI SQ (09:50)
--- NOTE | 2021-07-01 11:00 | NUR ---
RESIDENT TRANSFER NOTICE AND BED HOLD FORMS COMPLETED AND FILED IN PT.'S CHART.
--- NOTE | 2021-07-01 16:38 | NUR ---
Updated visitation guidelines: SW emailed pt.'s responsible constitution party, Madalyn the updated guidelines: specifying that visitation will be allowed once daily and all other regulations still apply.
--- NOTE | 2021-07-02 10:41 | NUR ---
Intake Paperwork: MAURICIO called the patients sister, Shae Jauregui [phone] and informed her that the intake paperwork: (Patient Right's Acknowledgement, Documentation of Preferred Intensity of Care) needs to be re-signed. Shae requested paperwork to be mailed to her. MAURICIO emailed paperwork to Shae and also mailed paperwork to her at [[id number] [id number]]. MAURICIO provided prepaid envelope for Shae to mail it back.
[2022-02-06] MEDS ORDERED: TUBERCULIN,PURIF.PROT.DERIV. 5 TU/0.1 ML VIAL ID SCH (09:00)
== END 2021-07-01 15:00 | disposition short-term general hospital (02) | DRG 981 ==
LOC: SA 22:16 → TRANSITION 02-24 22:40 → SA 02-24 22:40 → UNDODISIN 02-24 22:40 → SA 03-12 14:44 → UNDOLOA 04-08 00:30 → SA 04-16 16:19 → UNDOLOA 07-01 02:25 → SA 07-06 14:35
PROVIDERS: ADMIT Internal Medicine; ATTEND Internal Medicine
PROC: 5A1955Z Respiratory Ventilation, Greater than 96 Consecutive Hours (ICD-10-PCS; principal; 2021-02-20)
PROC: 05H933Z Insertion of Infusion Device into Right Brachial Vein, Percutaneous Approach (ICD-10-PCS; 2021-03-13)
PROC: 30233N1 Transfusion of Nonautologous Red Blood Cells into Peripheral Vein, Percutaneous Approach (ICD-10-PCS; 2021-03-25)
PROC: 30233N1 Transfusion of Nonautologous Red Blood Cells into Peripheral Vein, Percutaneous Approach (ICD-10-PCS; 2021-03-25)
PROC: 0KBN0ZZ Excision of Right Hip Muscle, Open Approach (ICD-10-PCS; 2021-04-16)
PROC: 0KBN0ZZ Excision of Right Hip Muscle, Open Approach (ICD-10-PCS; 2021-04-23)
PROC: 0KBN0ZZ Excision of Right Hip Muscle, Open Approach (ICD-10-PCS; 2021-04-30)
PROC: 0KBN0ZZ Excision of Right Hip Muscle, Open Approach (ICD-10-PCS; 2021-05-07)
PROC: 05HB33Z Insertion of Infusion Device into Right Basilic Vein, Percutaneous Approach (ICD-10-PCS; 2021-05-15)
PROC: 0KBN0ZZ Excision of Right Hip Muscle, Open Approach (ICD-10-PCS; 2021-05-20)
PROC: 0KBN0ZZ Excision of Right Hip Muscle, Open Approach (ICD-10-PCS; 2021-05-28)
PROC: 0KBN0ZZ Excision of Right Hip Muscle, Open Approach (ICD-10-PCS; 2021-06-03)
PROC: 0KBT0ZZ Excision of Left Lower Leg Muscle, Open Approach (ICD-10-PCS; 2021-06-03)
PROC: 05HD33Z Insertion of Infusion Device into Right Cephalic Vein, Percutaneous Approach (ICD-10-PCS; 2021-06-03)
PROC: 0KBN0ZZ Excision of Right Hip Muscle, Open Approach (ICD-10-PCS; 2021-06-10)
PROC: 0KBT0ZZ Excision of Left Lower Leg Muscle, Open Approach (ICD-10-PCS; 2021-06-10)
PROC: 0KBN0ZZ Excision of Right Hip Muscle, Open Approach (ICD-10-PCS; 2021-06-25)
PROC: 0KBT0ZZ Excision of Left Lower Leg Muscle, Open Approach (ICD-10-PCS; 2021-06-25)
DX: J96.21 Acute and chronic respiratory failure with hypoxia (principal); L89.214 Pressure ulcer of right hip, stage 4; J18.9 Pneumonia, unspecified organism; G92.8 Other toxic encephalopathy; L97.409 Non-pressure chronic ulcer of unspecified heel and midfoot with unspecified severity; N17.9 Acute kidney failure, unspecified; K56.7 Ileus, unspecified; E87.0 Hyperosmolality and hypernatremia; N39.0 Urinary tract infection, site not specified; Z99.11 Dependence on respirator [ventilator] status; N40.0 Benign prostatic hyperplasia without lower urinary tract symptoms; I25.10 Atherosclerotic heart disease of native coronary artery without angina pectoris; Z93.1 Gastrostomy status; R13.10 Dysphagia, unspecified; Z93.0 Tracheostomy status; D64.9 Anemia, unspecified; D72.819 Decreased white blood cell count, unspecified; E83.39 Other disorders of phosphorus metabolism; F32.9 Major depressive disorder, single episode, unspecified; F43.10 Post-traumatic stress disorder, unspecified; G80.9 Cerebral palsy, unspecified; I69.398 Other sequelae of cerebral infarction; I12.9 Hypertensive chronic kidney disease with stage 1 through stage 4 chronic kidney disease, or unspecified chronic kidney disease; L97.519 Non-pressure chronic ulcer of other part of right foot with unspecified severity; M20.41 Other hammer toe(s) (acquired), right foot; M20.42 Other hammer toe(s) (acquired), left foot; N18.9 Chronic kidney disease, unspecified; K21.9 Gastro-esophageal reflux disease without esophagitis; R62.7 Adult failure to thrive; E87.6 Hypokalemia; I25.2 Old myocardial infarction; Z86.73 Personal history of transient ischemic attack (TIA), and cerebral infarction without residual deficits; I73.9 Peripheral vascular disease, unspecified; S81.002A Unspecified open wound, left knee, initial encounter; X58.XXXA Exposure to other specified factors, initial encounter; Y93.9 Activity, unspecified; Y92.9 Unspecified place or not applicable; N20.0 Calculus of kidney; B96.5 Pseudomonas (aeruginosa) (mallei) (pseudomallei) as the cause of diseases classified elsewhere; Z74.01 Bed confinement status; Z85.47 Personal history of malignant neoplasm of testis; F41.9 Anxiety disorder, unspecified
CPT/HCPCS: 31720; 36410; 36415; 36600; 71045-TC; 74018; 80048-TC; 80053-TC; 80170-TC; 80202-TC; 81001; 82272-TC; 82565-TC; 82803-TC; 82962-TC; 83735-TC; 85025-TC; 85027-TC; 86580-TC; 86850-TC; 87040-TC; 87070-TC; 87081-TC; 87086-TC; 87186-TC; 90732; 92507-TC; 92521; 94002-TC; 94003-TC; 94640-TC; 94664-TC; 94760-TC; 94762-TC; 94799-TC; 97110-TC; 97112-TC; 97530-TC; 99082-TC; A4216; A4217; A4218; A4623; A6248; A6253; A7526; C9113; J0692; J0696; J1580; J1650; J1956; J2185; J2405; J2765; J2916; J3260; J3370; J3480; J3490; J7030; J7040; J7042; J7050; J7060; J7070; J8597; P9016; P9047; Q0162; Q2036; U0003

== ENCOUNTER 2021-02-13 12:47 | Inpatient (IN) | payer MEDICARE, OTHER ==
[2021-02-13] VITALS (12 sets, daily range): BP systolic 98–130; BP diastolic 27–82
[~2021-02-13] VITALS: Ht 177.8 cm; Wt 74.8 kg
--- NOTE | 2021-02-13 12:40 | NUR ---
RECEIVED PATIENT WITH #8 SHILEY PERC TRACH ON MECHANICAL VENT. @1240-PATIENT TRANSPORTED TO ICU PER MD ORDER. PATIENT PLACED ON ESPRIT VENT WITH VENT SETTINGS PER MD ORDER. VENT ALARMS SET AND AUDIBLE. SUCTIONED MODERATE-LARGE AMOUNTS OF THICK COLES SECRETIONS. AMBU BAG AND NEW TRACH AT [facility].
[~2021-02-13 12:47] MED LIST changes: -ACET-2605 GT; +ALBU2.5V13 IH; -BRIM5DRO3 EACHEYE; +ENOX40DI SQ; -ESCI10TA GT; +GENT40VI2 IM; +IPRA0.2S9 IH; +LATA2.5D2 OP; +METO-295 GT; +ONDA4TAB5 GT; -PIPE3.379 IV; +POTA20TA10 GT; +SOD62.5V IV; -VANC1PLA9 IV
[2021-02-13] MEDS ORDERED: HYDROGEN PEROXIDE 480 ML BOTTLE TP PRN (13:26)
[2021-02-13] MEDS ORDERED: ACETAMINOPHEN 650 MG/20 ML UDC- SA PATIENTS-PAIN ONLY GT PRN (13:26)
[2021-02-13] MEDS ORDERED: MELATONIN 3 MG TABLET GT PRN (13:26)
[2021-02-13] MEDS ORDERED: TUBERCULIN,PURIF.PROT.DERIV. 5 TU/0.1 ML VIAL ID SCH (13:26)
[2021-02-13] MEDS ORDERED: ONDANSETRON 4 MG TAB.RAPDIS GT PRN (13:26)
[2021-02-13] MEDS ORDERED: FERROUS SULFATE - FOR SA ONLY 330 MG/7.5 ML UDC GT SCH (13:26)
[2021-02-13] MEDS ORDERED: BISACODYL SUPP (10 MG) 10 MG/SUPP.RECT SUPP.RECT RC PRN (13:26)
[2021-02-13] MEDS ORDERED: TEMAZEPAM 15 MG CAPSULE GT PRN (13:26)
[2021-02-13] MEDS ORDERED: MAGNESIUM HYDROXIDE 30 ML UDC GT PRN (13:26)
[2021-02-13] MEDS ORDERED: VANCOMYCIN 1 GM in IV D5W 250ml IV SCH ×2 (13:26→22:00)
[2021-02-13] MEDS ORDERED: JEVITY 1.2 CAL 1,000 ML BOTTLE GT PRN (13:26)
[2021-02-13] MEDS ORDERED: NA PHOS,M-B/NA PHOS,DI-BA 1 EA ENEMA RC PRN (13:26)
[2021-02-13] MEDS ORDERED: ACETAMINOPHEN 650 MG/20 ML UDC- SA PATIENTS-FEVER ONLY GT PRN (13:26)
[2021-02-13] MEDS ORDERED: CEFEPIME 2 GM in IV D5W 100 ML IV SCH (13:26)
[2021-02-13] MEDS ORDERED: ZOLPIDEM TARTRATE 5 MG TABLET PO PRN (14:00)
[2021-02-13] MEDS ORDERED: ACETAMINOPHEN 325 MG TABLET PO PRN (14:00)
[2021-02-13] MEDS ORDERED: ONDANSETRON HCL/PF 4 MG/2 ML VIAL IVP PRN (14:00)
--- NOTE | 2021-02-13 14:38 | NUR ---
Report received from ROSALINDA Cuevas in Subacute Unit at [facility]. Pt admitted to ICU rm 253. VSS, temp rechecked 98.9F axillary. Trach Shiley #8.0 with vent settings AC 14/550/70% +10. GT in place, clamped at this time. Pt has contractures of all limbs, nonverbal, Mepelex dressings noted on L and R heels. Admission documentation in process; continuing to monitor.
[2021-02-13] MEDS: CEFEPIME 2 GM in IV D5W 100 ML IV SCH (15:14)
[2021-02-13] MEDS: IV NS 0.9% 1,000 ML IV PRN (15:20)
[2021-02-13] MEDS: IPRATROPIUM NEB FS 0.5 MG/2.5 ML AMPUL.NEB NEB SCH ×3 (15:30→23:17)
[2021-02-13] MEDS: ALBUTEROL FS 2.5 MG/0.5 ML VIAL.NEB NEB SCH ×4 (15:30→23:18)
[2021-02-13] MEDS: DOCUSATE SODIUM LIQ 100 MG/10 ML UDC GT SCH (16:23)
[2021-02-13] MEDS: TIMOLOL 0.5% SOLN OPHTH 5 ML BOTTLE EACHEYE SCH (16:23)
[2021-02-13] MEDS: FERROUS SULFATE UDC 300 MG/5 ML UDC GT SCH (17:05)
[2021-02-13] MEDS: PROSTAT (PYXIS) 30 ML UDC GT SCH (17:13)
[2021-02-13] MEDS ORDERED: DOSING PER PHARMACY-TOBRA INHALATION 1 EA XX PRN (18:30)
--- NOTE | 2021-02-13 18:50 | NUR ---
Jevity 1.2 started at 55 ml/hr per orders. UOP 35 ml/hr with NS at 80ml/hr via RUE midline. Pt temp 99.0 as of 1600 without fever reducing medication. Reporting off to nightshift RN.
--- NOTE | 2021-02-13 19:34 | NUR ---
RCVD PT WITH GUERRERO #8 PERC TRACH ON [facility] VENT WITH THE SETTINGS OF AC 14, 550, PEEP 10, FIO2 70%. SUCTIONED SMALL COLES THICK SECRETIONS . VENT PLUGGED INTO RED OUTLET, VENT ALARMS ON AND AUDIBLE. AIRBORNE MISSIONS SYSTEMS DONE. NO RESPIRATORY DISTRESS NOTED AT THIS TIME. WILL CONTINUE MONITOR T/O SHIFT. Addendum: 02/14/21 at 0512 by MANDO SIMON RT SUCTIONED SMALL AMOUNT OF COLES THICK SECRETIONS
[2021-02-13] MEDS ORDERED: TOBRAMYCIN IV ONE (20:30)
[2021-02-13] MEDS ORDERED: D5W IV ONE (20:30)
[2021-02-13] MEDS ORDERED: TOBRAMYCIN 80 MG/2 ML VIAL ONE ×2 (20:39→20:42)
[2021-02-13] MEDS: NEOMY SULF/BACITRAC ZN/POLY 15 GM TUBE TP SCH (21:00)
[2021-02-13] MEDS: BACI/NEOM/POLY B OINT PKT 1 UDPKT PACKET TP SCH (21:00)
[2021-02-13] MEDS: HYDROGEN PEROXIDE 480 ML BOTTLE TP SCH (21:00)
[2021-02-13] MEDS: ZINC OXIDE 30 GM TUBE TP SCH (21:00)
[2021-02-13] MEDS: Z GUARD REMEDY 4 OZ OINT TP SCH ×2 (21:00)
[2021-02-13] MEDS: ENOXAPARIN SODIUM 40 MG/0.4 ML DISP.SYRIN SQ SCH (21:51)
[2021-02-13] MEDS: METOCLOPRAMIDE HCL 10 MG/10 ML UDC GT SCH (21:52)
[2021-02-13] MEDS: ATORVASTATIN 40 MG TABLET GT SCH (21:52)
[2021-02-13] MEDS: LATANOPROST EYE DROP 0.005% 2.5 ML BOTTLE EACHEYE SCH (22:00)
[2021-02-14] VITALS (27 sets, daily range): BP systolic 59–128; BP diastolic 22–78
[2021-02-14] MEDS: PROSTAT (PYXIS) 30 ML UDC GT SCH ×4 (00:13→17:36)
[2021-02-14] MEDS: ACETAMINOPHEN 650 MG/20.3 ML UDC GT PRN ×3 (00:13→18:02)
--- NOTE | 2021-02-14 01:16 | NUR ---
patient wound care was done on days also i told charge nurse ED. patient temp at 200 was 100. checked at 0000 temp 102 patient given tylenol 650mg gt. josephtent has trach to vent ac 14, tv550, fi02 60%, peep 10 sat 100%. patient sinus tach on monitor. no distress at this time.
[2021-02-14] MEDS: IPRATROPIUM NEB FS 0.5 MG/2.5 ML AMPUL.NEB NEB SCH ×5 (03:33→19:45)
[2021-02-14] MEDS: ALBUTEROL FS 2.5 MG/0.5 ML VIAL.NEB NEB SCH ×5 (03:33→19:45)
[2021-02-14 05:03] LABS: BASOPHILS % (AUTO) 0.3 % (0.0-2.0); EOSINOPHILS % (AUTO) 0.7 % (0.0-6.0); HEMATOCRIT 25 % (39-51); HEMOGLOBIN 8.3 g/dL (13.5-17.5); LYMPHOCYTES # (AUTO) 0.8 K/uL (0.8-4.8); LYMPHOCYTES % (AUTO) 10.3 % (20.0-44.0); MEAN CORPUSCULAR HGB CONC 34 g/dl (31.0-36.0); MEAN CORPUSCULAR VOLUME 92 fL (80-96); MONOCYTES # (AUTO) 0.6 K/uL (0.1-1.30); MONOCYTES % (AUTO) 6.9 % (2.0-12.0); NEUTROPHILS # (AUTO) 6.5 K/uL (1.8-8.9); NEUTROPHILS % (AUTO) 81.8 % (43.0-81.0); PLATELET COUNT (AUTO) 374 K/uL (150-450); RED BLOOD CELL COUNT(AUTO) 2.69 MIL/uL (4.5-6.0)
[2021-02-14] MEDS: METOCLOPRAMIDE HCL 10 MG/10 ML UDC GT SCH ×3 (05:48→21:10)
[2021-02-14] MEDS: IV NS 0.9% 1,000 ML IV PRN ×2 (05:49→18:17)
[2021-02-14 05:55] LABS: CALCIUM, SERUM 8.5 mg/dL (8.5-10.1); MAGNESIUM 2.4 mg/dL (1.8-2.4); PHOSPHORUS 3.6 mg/dL (2.5-4.9); POTASSIUM 4.4 mmol/L (3.5-5.1)
--- NOTE | 2021-02-14 07:15 | NUR ---
RIGGING WORKER NOTES RECEIVED PATIENT ON TRACH TO VENT SHILEY #8, AC 14, TV 550, FIO2 60%, PEEP OF 10. TOLERATING WELL SATING 100% AT THIS TIME, ASLEEP AND EASILY AROUSABLE, NON VERBAL AND CONTRACTED. ST ON MONITOR HR OF 110, NOTED WITH GTUBE WITH JEVITY 1.2 RUNNING 55 ML/HR, MINIMAL RESIDUAL, NOTED WITH GONCALVES CATHETER DRAINING FREELY VIA GRAVITY, IV ACCESS ON MK MIDLINE #20 WITH NS RUNNING 80ML/HR. AND RIGHT IJ, INTACT AND PATENT. CURRENT TEMP OF 100.9, SAFETY MEASURES MAINTAINED, WILL CONTINUE TO MONITOR.
[2021-02-14] MEDS: DOCUSATE SODIUM LIQ 100 MG/10 ML UDC GT SCH ×2 (08:10→16:45)
[2021-02-14] MEDS: BACLOFEN (10 MG) 10 MG TABLET GT SCH (08:10)
[2021-02-14] MEDS: FERROUS SULFATE UDC 300 MG/5 ML UDC GT SCH ×2 (08:10→16:45)
[2021-02-14] MEDS: LISINOPRIL (5MG) 5 MG TABLET GT SCH (08:11)
[2021-02-14] MEDS: PANTOPRAZOLE 40 MG/PACK PACK GT SCH (08:11)
[2021-02-14] MEDS: ASPIRIN 81 MG TAB.CHEW GT SCH (08:11)
[2021-02-14] MEDS: TOBRAMYCIN 80 MG/2 ML VIAL INH SCH ×3 (08:11→21:40)
[2021-02-14] MEDS: AMLODIPINE BESYLATE 10 MG TABLET GT SCH (08:11)
[2021-02-14] MEDS: FOLIC ACID 1 MG TABLET GT SCH (08:11)
[2021-02-14] MEDS: LORATADINE 10 MG TABLET GT SCH (08:11)
[2021-02-14] MEDS: NEOMY SULF/BACITRAC ZN/POLY 15 GM TUBE TP SCH ×2 (08:14→21:11)
[2021-02-14] MEDS: TIMOLOL 0.5% SOLN OPHTH 5 ML BOTTLE EACHEYE SCH ×2 (08:15→16:46)
[2021-02-14] MEDS: BICALUTAMIDE 50 MG TABLET GT SCH (08:15)
[2021-02-14] MEDS: PYRIDOXINE HCL 50 MG TABLET GT SCH (08:16)
[2021-02-14] MEDS: BACI/NEOM/POLY B OINT PKT 1 UDPKT PACKET TP SCH ×2 (08:16→21:12)
[2021-02-14] MEDS: Z GUARD REMEDY 4 OZ OINT TP SCH ×6 (08:17→21:24)
[2021-02-14] MEDS: VITAMINS A AND D 56.7 GM TUBE TP SCH (08:17)
[2021-02-14] MEDS: ZINC OXIDE 30 GM TUBE TP SCH ×2 (08:18→21:13)
[2021-02-14] MEDS: HYDROGEN PEROXIDE 480 ML BOTTLE TP SCH ×2 (08:48→21:17)
--- NOTE | 2021-02-14 09:37 | NUR ---
CUSTOMER CARE VOICE CONSULTANT NOTES TOBRAMYCIN GIVEN VIA INH WITH RT SIVAN.
[2021-02-14] MEDS: CEFEPIME 2 GM in IV D5W 100 ML IV SCH (14:01)
--- NOTE | 2021-02-14 18:15 | NUR ---
GAS METER INSTALLER HELPER NOTES PATIENT HAS A FEVER OF 101, HR OF 140, SBP WENT DOWN TO 59'S, TYLENOL GIVEN, COOLING MEASURES APPLIED, MD MADE AWARE WITH ORDERS OF [place] TO START, ORDERS MADE AND CARRIED OUT, WILL CONTINUE TO MONITOR.
[2021-02-14] MEDS ORDERED: PHENYLEPHRINE 50 MG in IV NS 0.9% 245 ML IV PRN (18:30)
--- NOTE | 2021-02-14 18:49 | NUR ---
OPERATIONS SYSTEMS SPECIALIST NOTES PATIENT ON TRACH TO VENT SHILEY #8, AC 14, TV 550, FIO2 40%, PEEP OF 5. SATING 93% AT THIS TIME, EASILY AROUSABLE, NON VERBAL AND CONTRACTED. ST ON MONITOR HR OF 140'S, NOTED WITH GTUBE WITH JEVITY 1.2 CURRENTLY ON HOLD DUE TO EPISODE OF VOMITING, NOTED WITH GONCALVES CATHETER DRAINING FREELY VIA GRAVITY, IV ACCESS ON MK MIDLINE #20 WITH NS RUNNING 80ML/HR. AND RIGHT IJ, INTACT AND PATENT. CURRENT TEMP OF 101.7, SAFETY MEASURES MAINTAINED, WILL ENDORSE TO CHEMICALS DISTILLER NURSE FOR SANDY.
--- NOTE | 2021-02-14 19:33 | NUR ---
TOMOGRAPHIC TECH. INITIAL ASSESSMENT. RECEIVED THE PT REST ON THE BED. TRACH TO VENT CONNECTED. PT IS AWAKE, OPEN EYES. DOES NOT FOLLOW COMMANDS. NON VERBAL. TRACH TO VENT CONNECTED. MIQUEL, GUERRERO#8, AC 14, TV 550, FIO2 40%, PEEP 5. SAT 98%. MEDICAL TRANSLATOR SHOWING S TACH. IV RT UPPER ARM MID LINE. RT EJ IVF NS 80ML/H. HOB ELEVATED. GT INTACT. DAY SHIFT RN HOLED THE FEEDING. FC PATENT. HOB ELEVATED. WILL CONTINUE TO MONITOR VITALS.
--- NOTE | 2021-02-14 20:22 | NUR ---
Received patient trach on vent. No resp distress. Patient tolerating vent settings. Sx'd moderate amaount of thick yellow secretions. Vent alarms set and audible. Trach cuff color developer and secured. Continue to monitor. Addendum: 02/14/21 at 2024 by SHAYNE GRANT RT Amended: Links added.
[2021-02-14] MEDS: ATORVASTATIN 40 MG TABLET GT SCH (21:10)
[2021-02-14] MEDS: Z GUARD REMEDY 2 OZ OINT TP PRN ×2 (21:14→21:22)
[2021-02-14] MEDS: ENOXAPARIN SODIUM 40 MG/0.4 ML DISP.SYRIN SQ SCH (21:15)
[2021-02-14] MEDS: LATANOPROST EYE DROP 0.005% 2.5 ML BOTTLE EACHEYE SCH (22:13)
[2021-02-15] VITALS (19 sets, daily range): BP systolic 46–150; BP diastolic 22–99
[2021-02-15] MEDS: PROSTAT (PYXIS) 30 ML UDC GT SCH ×2 (00:40→06:16)
[2021-02-15] MEDS: ACETAMINOPHEN 650 MG/20.3 ML UDC GT PRN ×2 (00:43→08:29)
[2021-02-15] MEDS: ALBUTEROL FS 2.5 MG/0.5 ML VIAL.NEB NEB SCH ×4 (01:26→11:44)
[2021-02-15] MEDS: IPRATROPIUM NEB FS 0.5 MG/2.5 ML AMPUL.NEB NEB SCH ×4 (01:26→11:44)
--- NOTE | 2021-02-15 01:41 | NUR ---
director of curriculum and instruction. remaining same vent setting tolerated well. hob elevated. temperature is 100. tylenol given per ordered
[2021-02-15] MEDS: IV NS 0.9% 1,000 ML IV PRN (03:19)
--- NOTE | 2021-02-15 03:48 | NUR ---
agricultural inspector. am care, given, remaining same vent settings on. temperature is 99. gt fedding tolerated well. fc patent. urine draining. turn and reposition q2h. will continue to monitor vitals
[2021-02-15 04:30] LABS: BASOPHILS % (AUTO) 0.2 % (0.0-2.0); EOSINOPHILS % (AUTO) 0.2 % (0.0-6.0); HEMATOCRIT 23 % (39-51); HEMOGLOBIN 7.5 g/dL (13.5-17.5); LYMPHOCYTES # (AUTO) 0.5 K/uL (0.8-4.8); LYMPHOCYTES % (AUTO) 4.7 % (20.0-44.0); MEAN CORPUSCULAR HGB CONC 34 g/dl (31.0-36.0); MEAN CORPUSCULAR VOLUME 93 fL (80-96); MONOCYTES # (AUTO) 0.4 K/uL (0.1-1.30); MONOCYTES % (AUTO) 3.7 % (2.0-12.0); NEUTROPHILS # (AUTO) 9.8 K/uL (1.8-8.9); NEUTROPHILS % (AUTO) 91.2 % (43.0-81.0); PLATELET COUNT (AUTO) 353 K/uL (150-450); RED BLOOD CELL COUNT(AUTO) 2.41 MIL/uL (4.5-6.0); WHITE BLOOD COUNT (AUTO) 10.7 K/uL (4.3-11.0)
[2021-02-15] MEDS: METOCLOPRAMIDE HCL 10 MG/10 ML UDC GT SCH (04:33)
[2021-02-15 04:46] LABS: BILIRUBIN,TOTAL 0.6 mg/dL (0.2-1.0); CALCIUM, SERUM 8.7 mg/dL (8.5-10.1); CREATININE 0.9 mg/dL (0.6-1.3); MAGNESIUM 2.2 mg/dL (1.8-2.4); PHOSPHORUS 3.7 mg/dL (2.5-4.9); TOTAL PROTEIN, SERUM 5.8 g/dL (6.4-8.2)
[2021-02-15 05:08] LABS: ALBUMIN 1.2 g/dL (3.4-5.0)
--- NOTE | 2021-02-15 06:18 | NUR ---
curriculum designer. vent settings fio2 titrated down to 40%. sat is 95%. will continue to monitor
[2021-02-15] MEDS ORDERED: VANCOMYCIN 1 GM in IV D5W 250ml IV SCH (07:00)
--- NOTE | 2021-02-15 07:00 | NUR ---
RN NOTES RECEIVED PT ON BED, VENT/TRACH DEPENDENT, TOLERAING VENT SETTING WELL, O2 SAT WNL, FIO2 AT 40 %, ETT SUCTIONING DONE , ON TELE ST HR IN 110'S , NS AT 80CC/HR INFUSING VIA RIGHT UPPER ARM MIDLINE , SITE CLEAN , DRY AND INTACT, TF AT 55CC/HR RUNNING , NO RESIDUAL NOTED AT THIS TIME, SR UP x3, CALL LIGHT WITHIN EASY REACH, BED LOCKED AND IN LOWEST POSITION, CONTINUE TO MONITOR.
[2021-02-15] MEDS: PANTOPRAZOLE 40 MG/PACK PACK GT SCH (08:13)
[2021-02-15] MEDS: DOCUSATE SODIUM LIQ 100 MG/10 ML UDC GT SCH (08:14)
[2021-02-15] MEDS: BACLOFEN (10 MG) 10 MG TABLET GT SCH (08:14)
[2021-02-15] MEDS: ASPIRIN 81 MG TAB.CHEW GT SCH (08:14)
[2021-02-15] MEDS: LORATADINE 10 MG TABLET GT SCH (08:14)
[2021-02-15] MEDS: FOLIC ACID 1 MG TABLET GT SCH (08:14)
[2021-02-15] MEDS: AMLODIPINE BESYLATE 10 MG TABLET GT SCH (08:14)
[2021-02-15] MEDS: FERROUS SULFATE UDC 300 MG/5 ML UDC GT SCH (08:15)
[2021-02-15] MEDS: LISINOPRIL (5MG) 5 MG TABLET GT SCH (08:15)
[2021-02-15] MEDS: TIMOLOL 0.5% SOLN OPHTH 5 ML BOTTLE EACHEYE SCH (08:17)
[2021-02-15] MEDS: PYRIDOXINE HCL 50 MG TABLET GT SCH (08:18)
[2021-02-15] MEDS: BICALUTAMIDE 50 MG TABLET GT SCH (08:18)
[2021-02-15] MEDS: BACI/NEOM/POLY B OINT PKT 1 UDPKT PACKET TP SCH (08:19)
[2021-02-15] MEDS: HYDROGEN PEROXIDE 480 ML BOTTLE TP SCH (08:19)
[2021-02-15] MEDS: Z GUARD REMEDY 4 OZ OINT TP SCH ×2 (08:20→08:21)
[2021-02-15] MEDS: NEOMY SULF/BACITRAC ZN/POLY 15 GM TUBE TP SCH (08:22)
[2021-02-15] MEDS: VITAMINS A AND D 56.7 GM TUBE TP SCH (08:25)
[2021-02-15] MEDS: ZINC OXIDE 30 GM TUBE TP SCH (08:26)
--- NOTE | 2021-02-15 09:00 | NUR ---
RN NOTES DR PENA NOTIFIED REGARDING TROPONIN 0.085
[2021-02-15] MEDS ORDERED: TOBR40VI2 INH (10:40)
[2021-02-15] MEDS ORDERED: VANC1FRO2 IV (10:40)
[2021-02-15] MEDS ORDERED: CEFE2FRO IV (10:40)
--- NOTE | 2021-02-15 11:00 | NUR ---
RN NOTES T=99.0 AXILLARY , HR IN 110, YUSEF PARTY PLAN SALES UNIT ADVISOR NOTIFIED.
[2021-02-15] MEDS: TOBRAMYCIN 80 MG/2 ML VIAL INH SCH (11:44)
--- NOTE | 2021-02-15 11:50 | NUR ---
RN NOTES PT DISCHARGED TO [facility] SUBACUTE IN STABLE CONDITION, REPORT GIVEN TO JUANITO TELLEZ .
[2021-02-15] MEDS ORDERED: LACT-209 GT (13:42)
[2021-02-15] MEDS ORDERED: AMLO-213 GT (13:42)
[2021-02-15] MEDS ORDERED: LISI-768 GT (13:45)
[2022-02-06] MEDS ORDERED: TUBERCULIN,PURIF.PROT.DERIV. 5 TU/0.1 ML VIAL ID SCH (13:00)
== END 2021-02-15 12:56 | DRG 205 ==
LOC: ICU 12:47 → UNDOADMIN 12:47 → ICU 16:58
PROVIDERS: ADMIT Nurse Practitioner Acute Care; ATTEND Nurse Practitioner Acute Care
DX: J95.851 Ventilator associated pneumonia (principal); A41.9 Sepsis, unspecified organism; J96.21 Acute and chronic respiratory failure with hypoxia; I21.A1 Myocardial infarction type 2; Z99.11 Dependence on respirator [ventilator] status; N39.0 Urinary tract infection, site not specified; Y82.9 Unspecified medical devices associated with adverse incidents; Y92.89 Other specified places as the place of occurrence of the external cause; I25.10 Atherosclerotic heart disease of native coronary artery without angina pectoris; Y84.8 Other medical procedures as the cause of abnormal reaction of the patient, or of later complication, without mention of misadventure at the time of the procedure; Z86.73 Personal history of transient ischemic attack (TIA), and cerebral infarction without residual deficits; Z93.0 Tracheostomy status; Z93.1 Gastrostomy status; R13.10 Dysphagia, unspecified; N40.0 Benign prostatic hyperplasia without lower urinary tract symptoms; I10 Essential (primary) hypertension; Z85.47 Personal history of malignant neoplasm of testis; G80.9 Cerebral palsy, unspecified; D64.9 Anemia, unspecified
CPT/HCPCS: 31720; 36415; 71045-TC; 80048-TC; 80053-TC; 80202-TC; 83735-TC; 84100-TC; 84484-TC; 85025-TC; 86580-TC; 87040-TC; 87070-TC; 87081-TC; 87186-TC; 93307-TC; 94002-TC; 94003-TC; 94640-TC; 94760-TC; A6403; G0378; J0692; J1650; J2370; J3260; J3370; J7030; J7050; J7060; J8597; Q0162

== ENCOUNTER 2021-02-24 22:40 | Inpatient (IN) | payer MEDICARE, OTHER ==
[~2021-02-24] VITALS: Ht 157.5 cm; Wt 56.2 kg
[~2021-02-24 22:40] MED LIST changes: +AMLO-213 GT; -AMLO10TA4 GT; +CEFE2FRO IV; -GENT40VI2 IM; +LACT-209 GT; -LATA2.5D2 OP; +TOBR40VI2 INH; +VANC1FRO2 IV
--- NOTE | 2021-02-24 22:45 | NUR ---
PT BIBNURSE FROM SUB ACUTE C/O VOMITING AND TACHYCARDIA SINCE THE MORNIG. PLACED IN BED 8 ON INFRASTRUCTURE ENGINEER AND PULSE OX. PT NOTED TACHY AROUND HIGH 120'S. ALSO NOTED TO HAVE TEMP OF 101.8. PT NOTED TO HAVE G TUBE, MK MID LINE, AND GONCALVES. AWAITING FOR ER MD FOR EVAL AND ORDERS.
[2021-02-24] MEDS ORDERED: ONDANSETRON HCL/PF 4 MG/2 ML VIAL IVP ONE (23:00)
[2021-02-24] MEDS ORDERED: ACETAMINOPHEN 650 MG/SUPP.RECT RC ONE ×2 (23:00→23:26)
--- NOTE | 2021-02-24 23:01 | NUR ---
MK MID LINE MALFUNCTIONED. WILL CALL MID LINE NURSE FOR LINE.
[2021-02-24] MEDS ORDERED: ONDANSETRON HCL/PF 4 MG/2 ML VIAL ONE (23:26)
[2021-02-24 23:32] LABS: BILIRUBIN,URINE Negative (NEGATIVE); COLOR,URINE YELLOW (YELLOW); LEUKOCYTE ESTERASE ,URINE Trace (NEGATIVE); NITRITE, URINE Negative (NEGATIVE); PH,URINE 5.5 (5.0-8.0); PROTEIN,URINE 100 mg/dl (NEGATIVE); UGLUCOSE Negative (NEGATIVE); UROBILINOGEN,URINE 0.2 EU/dL (0.2)
[2021-02-24 23:37] LABS: BASOPHILS # (AUTO) 0.1 K/uL (0.0-0.2); BASOPHILS % (AUTO) 0.4 % (0.0-2.0); EOSINOPHILS % (AUTO) 0.4 % (0.0-6.0); HEMATOCRIT 23 % (39-51); HEMOGLOBIN 7.3 g/dL (13.5-17.5); LYMPHOCYTES # (AUTO) 0.7 K/uL (0.8-4.8); LYMPHOCYTES % (AUTO) 4.7 % (20.0-44.0); MEAN CORPUSCULAR HGB CONC 32 g/dl (31.0-36.0); MEAN CORPUSCULAR VOLUME 92 fL (80-96); MONOCYTES # (AUTO) 0.5 K/uL (0.1-1.30); MONOCYTES % (AUTO) 3.7 % (2.0-12.0); NEUTROPHILS # (AUTO) 13.3 K/uL (1.8-8.9); NEUTROPHILS % (AUTO) 90.8 % (43.0-81.0); PLATELET COUNT (AUTO) 642 K/uL (150-450); RED BLOOD CELL COUNT(AUTO) 2.48 MIL/uL (4.5-6.0); WHITE BLOOD COUNT (AUTO) 14.6 K/uL (4.3-11.0)
[2021-02-24 23:48] LABS: BACTERIA,URINE Many /HPF (None Seen); WBC,URINE 51-80 /HPF (0-3)
[2021-02-24 23:49] LABS: MUCUS,URINE Few /LPF (None Seen); SQUAMOUS EPITHELIAL CELL,UR Moderate /HPF (None Seen)
[2021-02-24 23:53] LABS: EOSINOPHILS % (MANUAL) 3 % (0-4); LYMPHOCYTES % (MANUAL) 5 % (16-48); MONOCYTES % (MANUAL) 3 % (0-11.0); NEUTROPHILS % (MANUAL) 89 (42-76)
[2021-02-25 00:05] LABS: ALBUMIN 1.5 g/dL (3.4-5.0); BILIRUBIN,DIRECT 0.1 mg/dL (0.0-0.2); BILIRUBIN,TOTAL 0.3 mg/dL (0.2-1.0); CREATININE 1.1 mg/dL (0.6-1.3); TOTAL PROTEIN, SERUM 6.4 g/dL (6.4-8.2)
[2021-02-25 00:07] LABS: POTASSIUM 2.8 mmol/L (3.5-5.1)
--- NOTE | 2021-02-25 00:07 | NUR ---
K 2.8
[2021-02-25] MEDS ORDERED: POTASSIUM CHLORIDE 10 MEQ/50 ML PREMIXED IVPB FOR PERIPHERAL LINE IV ONE (00:30)
[2021-02-25] MEDS ORDERED: LEVOFLOXACIN 750 MG /D5W 150ML PIGGYBACK IV ONE (00:30)
[2021-02-25] MEDS ORDERED: CEFEPIME 1 GM in IV D5W 50 ML IV ONE (00:30)
--- NOTE | 2021-02-25 00:36 | NUR ---
BROUGHT PT TO CT AND BACK
--- NOTE | 2021-02-25 00:45 | NUR ---
bridgett judge reserves clerk at bed side for mid line insertion. GT was connected to low intermitent suctioning per dr delcid's order and reserves clerk's approval.
--- NOTE | 2021-02-25 00:45 | NUR ---
MID LINE ESTABLISHED, WILL ADMINISTER MEDICATIONS VIA MK MID LINE.
[2021-02-25] MEDS ORDERED: POTASSIUM CL. PREMIX PERIPHER. 50 ML ONE (00:57)
[2021-02-25] MEDS ORDERED: LEVOFLOXACIN 750 MG /D5W 150ML 150 ML IV ONE (00:57)
[2021-02-25] MEDS ORDERED: CEFEPIME 1 GM VIAL ONE (00:58)
--- NOTE | 2021-02-25 01:31 | NUR ---
RECHECKED TEMP, 100.4. PT REMAINS ON GOLF COURSE MECHANIC AND PULSE OX.
--- NOTE | 2021-02-25 01:35 | NUR ---
called house sup for tele bed
--- NOTE | 2021-02-25 01:52 | NUR ---
tele bed [id number]
--- NOTE | 2021-02-25 01:59 | NUR ---
REPORT GIVEN TO RN
[2021-02-25] MEDS ORDERED: POTASSIUM CL. PREMIX PERIPHER. 150 ML ONE (02:13)
[2021-02-25] MEDS ORDERED: ONDANSETRON HCL/PF 4 MG/2 ML VIAL IVP PRN (02:30)
[2021-02-25] MEDS ORDERED: Z GUARD REMEDY 2 OZ OINT TP PRN (02:30)
[2021-02-25 02:38] VITALS: BP 91/65
--- NOTE | 2021-02-25 02:38 | NUR ---
RN ADMITTING NOTE PT TRANSPORTED BY AUGUSTIN TO UNIT FROM ED AT THIS TIME. RECEIVED REPORT FROM ROSALINDA CALIX @ED, A/NONVERBAL. PT IS UNABLE TO COMMUNICATE NEEDS AND PAIN. NO SOB AT THIS TIME, RESPIRATIONS UNEVEN AND LABOURED. SKIN IS NOT INTACT HAS PRESSURE SORES O THE ANKLE, BUTTOCKS, HEEL AND TOE.ST WITH PVC@ 126. SKIN IS WARM TO TOUCH. CAP REFILL LESS THAN 3 SECS. IV ACCESS NOTED IN R U MIDLINE INTACT, PATENT AND FLUSHING WELL. ASPIRATION AND SAFETY PPRECAUTION IN PLACE AND MAINTAINED AT ALL TIMES. BED IN LOWEST LOCKED POSITION, SIDE RAILS UP X2, TABLE AND CALL LIGHT WITHIN REACH. WILL CONTINUE PLAN OF CARE.
--- NOTE | 2021-02-25 02:43 | NUR ---
PT TRANSFERED PER ACLS PROTOCOL. RT AT BEDSIDE.
[2021-02-25] MEDS: IV D5/0.45 NACL 1,000 ML IV PRN ×2 (02:55→18:03)
[2021-02-25] MEDS ORDERED: VANCOMYCIN 1 GM in IV D5W 250ml IV ONE (03:30)
[2021-02-25] MEDS ORDERED: VANCOMYCIN 1 GM VIAL ONE (04:02)
[2021-02-25 04:15] LABS: ABG BASE EXCESS -0.8 mmol/L; ABG OXYGEN SATURATION 94.7 % (92.0-98.5); ABG PCO2 35.1 mmHg (35.0-45.0); ABG PH 7.437 (7.350-7.450); ABG PO2 76.1 mmHg (75.0-100.0); AaDO2 240.9 mmHg; COHb 0.3 % (0.5-1.5); MetHb 0.1 % (0.0-1.5); O2Hb 94.3 % (94.0-97.0); PEEP,BG 5 cm H2O; SITE, ABG Right Radial; VT, ABG 550 mL
[2021-02-25 05:19] VITALS: BP 91/65
[2021-02-25] MEDS ORDERED: ALBUTEROL FS 2.5 MG/0.5 ML VIAL.NEB IH SCH (06:00)
[2021-02-25] MEDS ORDERED: IPRATROPIUM NEB FS 0.5 MG/2.5 ML AMPUL.NEB IH SCH (06:00)
[2021-02-25 06:24] LABS: BASOPHILS # (AUTO) 0.1 K/uL (0.0-0.2); BASOPHILS % (AUTO) 0.6 % (0.0-2.0); EOSINOPHILS % (AUTO) 0.1 % (0.0-6.0); HEMATOCRIT 22 % (39-51); HEMOGLOBIN 7.2 g/dL (13.5-17.5); LYMPHOCYTES # (AUTO) 0.8 K/uL (0.8-4.8); LYMPHOCYTES % (AUTO) 5.2 % (20.0-44.0); MEAN CORPUSCULAR HGB CONC 32 g/dl (31.0-36.0); MEAN CORPUSCULAR VOLUME 93 fL (80-96); MONOCYTES # (AUTO) 0.9 K/uL (0.1-1.30); MONOCYTES % (AUTO) 5.9 % (2.0-12.0); NEUTROPHILS # (AUTO) 14.1 K/uL (1.8-8.9); NEUTROPHILS % (AUTO) 88.2 % (43.0-81.0); PLATELET COUNT (AUTO) 584 K/uL (150-450); RED BLOOD CELL COUNT(AUTO) 2.39 MIL/uL (4.5-6.0)
--- NOTE | 2021-02-25 07:00 | NUR ---
RN CLOSING NOTE PT IS AWAKE AND COMFORTABLE AT THIS TIME. WILL ENDORSE TO AM NURSE.
[2021-02-25 07:08] LABS: CALCIUM, SERUM 7.9 mg/dL (8.5-10.1); CREATININE 1.1 mg/dL (0.6-1.3); MAGNESIUM 1.7 mg/dL (1.8-2.4); POTASSIUM 3.5 mmol/L (3.5-5.1)
--- NOTE | 2021-02-25 07:35 | NUR ---
RN NOTES PATIENT IN BED, EYES OPEN, NON-VERBAL, TRACKS MOVEMENT. ON TRACH AND MECH VENT, NO RESPIRATORY DISTRESS NOTED. MK MIDLINE INTACT AND PATENT. GONCALVES CATH IN PLACE, DRAINING YELLOW-COLORED URINE. WOUND CONSULT ORDERED. GT CLAMPED AT THIS TIME. SAFETY MEASURES IN PLACE. WILL CONTINUE TO MONITOR.
[2021-02-25 08:00] VITALS: BP 97/69
[2021-02-25] MEDS ORDERED: TIMOLOL -XE 0.5% 5 ML BOTTLE EACHEYE SCH (09:00)
[2021-02-25] MEDS: Magnesium 1GM/D5W 100ML PREMIX 100 ML IV SCH ×2 (09:01→10:19)
[2021-02-25] MEDS: PANTOPRAZOLE 40 MG VIAL IV SCH (09:01)
--- NOTE | 2021-02-25 09:29 | NUR ---
WOUND CARE CONSULT: PT PRESENTS WITH MULTIPLE SKIN ISSUES, PRESENT ON ADMISSION INCLUDING LOWER EXTREMITY WOUNDS, CONTRACTED EXTREMITIES, SCARRING TO SACRUM AND LEFT HIP WITH SOME DISCOLORATION AND PEELING SKIN TO RT HIP/BUTTOCK AREA. RECOMMENDATIONS MADE FOR SKIN PROTECTION. DISCUSSED WITH NURSING STAFF. DPM CONSULT CALLED TO DR SHABAZZ. [facility] IS [facility] IN AGREEMENT WITH PLAN OF CARE. Addendum: 02/25/21 at 0932 by RUI LANTIGUA WNDNU Amended: Links added.
--- NOTE | 2021-02-25 11:45 | NUR ---
RN NOTES PATIENT SEEN BY RUI, WOUND CARE NURSE, AND DR. SHABAZZ, EXECUTIVE CREATIVE DIRECTOR; TX ORDERS NOTED.
[2021-02-25] MEDS: CEFEPIME 2 GM in IV D5W 100 ML IV SCH (12:00)
[2021-02-25 16:00] VITALS: BP 110/55
[2021-02-25] MEDS: VANCOMYCIN 0.75 GM in IV D5W 250 ML IV SCH (16:20)
[2021-02-25] MEDS: TIMOLOL 0.5% SOLN OPHTH 5 ML BOTTLE EACHEYE SCH (16:21)
--- NOTE | 2021-02-25 18:34 | NUR ---
RN NOTES PATIENT REPOSITIONED IN BED TOLERATED. IVF INFUSING WELL AT 75ML/HR. TOLERATING CURRENT MECH VENT SETTING. TRACH SUCTION PERFORMED DURING SHIFT. F/C DRAINED OF 600CC YELLOW-COLORED URINE OUTPUT. SAFETY MEASURES MAINTAINED. WILL ENDORSE TO RESEARCH PHYSICIAN RN FOR SANDY.
--- NOTE | 2021-02-25 19:00 | NUR ---
DEICER REPAIRER PNEUMATIC OPENING NOTE RECEIVED PT A/NONVERBAL. SR WITH PVC @ 87,PT IS UNABLE TO COMMUNICATE NEEDS AND PAIN. NO SOB AT THIS TIME, RESPIRATIONS EVEN AND UNLABORED. SKIN IS NOT INTACT. IV ACCESS NOTED IN R U MIDLINE INTACT, PATENT AND FLUSHING WELL. ASPIRATION AND SAFETY PRECAUTION IN PLACE AND MAINTAINED AT ALL TIMES. BED IN LOWEST LOCKED POSITION, SIDE RAILS UP X2, TABLE AND CALL LIGHT WITHIN REACH. WILL CONTINUE PLAN OF CARE. Addendum: 02/25/21 at 2013 by DANIEL HINES RN DEICER REPAIRER PNEUMATIC OPENING NOTE RECEIVED PT A/NONVERBAL. SR WITH PVC @ 87 AC 14 TV550 FIO2 50% PEEP 5,PT IS UNABLE TO COMMUNICATE NEEDS AND PAIN. NO SOB AT THIS TIME, RESPIRATIONS EVEN AND UNLABORED. SKIN IS NOT INTACT. IV ACCESS NOTED IN R U MIDLINE INTACT, PATENT AND FLUSHING WELL. ASPIRATION AND SAFETY PRECAUTION IN PLACE AND MAINTAINED AT ALL TIMES. BED IN LOWEST LOCKED POSITION, SIDE RAILS UP X2, TABLE AND CALL LIGHT WITHIN REACH. WILL CONTINUE PLAN OF CARE.
[2021-02-25 20:00] VITALS: BP 123/73
[2021-02-25] MEDS: ALBUTEROL FS 2.5 MG/0.5 ML VIAL.NEB IH SCH (20:00)
[2021-02-25] MEDS: IPRATROPIUM NEB FS 0.5 MG/2.5 ML AMPUL.NEB IH SCH (20:01)
[2021-02-25] MEDS: LATANOPROST EYE DROP 0.005% 2.5 ML BOTTLE EACHEYE SCH (22:11)
[2021-02-26] VITALS: BP 103/59
[2021-02-26] MEDS: CEFEPIME 2 GM in IV D5W 100 ML IV SCH ×2 (00:05→12:53)
[2021-02-26] MEDS: IPRATROPIUM NEB FS 0.5 MG/2.5 ML AMPUL.NEB IH SCH ×4 (01:49→20:13)
[2021-02-26] MEDS: ALBUTEROL FS 2.5 MG/0.5 ML VIAL.NEB IH SCH ×4 (01:49→20:13)
[2021-02-26] MEDS: ACETAMINOPHEN 650 MG/SUPP.RECT RC PRN (03:29)
--- NOTE | 2021-02-26 03:29 | NUR ---
PT APPEARS RESTLESS AND UNCOMFORTABLE. ADMINISTERED TYLENOL 650MG SUPPOSITORY RECTALLY FOR PAIN. Addendum: 02/26/21 at 0701 by DANIEL HINES RN PT APPEARS RESTLESS AND UNCOMFORTABLE. ADMINISTERED TYLENOL 650MG SUPPOSITORY RECTALLY PRN FOR PAIN.
[2021-02-26 04:00] VITALS: BP 110/69
[2021-02-26] MEDS: VANCOMYCIN 0.75 GM in IV D5W 250 ML IV SCH ×2 (04:13→16:00)
--- NOTE | 2021-02-26 05:47 | NUR ---
CHANGE MANAGEMENT EXPERT CLOSING NOTE PT AWAKE IN BED AT THIS TIME. RESPONDS TO TOUCH, UNABLE TO MAKE NEEDS KNOWN. NO ACUTE DISTRESS NOTED. ST WITH PVC @106, STABLE ON MECH VENT AC 14 TV550 FI02 50% PEEP 5. IV ACCESS RU MIDLINE INTACT AND FLUSHING WELL. TRACH SUCTION PERFORMED AND REPOSITIONED DURING SHIFT. GONCALVES CATHETER CARE PROVIDED AND DRAINED SAFETY PRECAUTIONS IN PLACE AND MAINTAINED AT ALL TIMES. BED IN LOWEST LOCKED POSITION, HOB ELEVATED, SIDE RAILS UP X2, CALL LIGHT AND TABLE WITHIN REACH. WILL CONTINUE TO MONITOR
[2021-02-26 06:59] LABS: CALCIUM, SERUM 8.1 mg/dL (8.5-10.1); POTASSIUM 3.4 mmol/L (3.5-5.1)
--- NOTE | 2021-02-26 07:41 | NUR ---
BIOCHEMISTRY TECHNICIAN OPENING NOTE RECEIVED PATIENT IN BED, ASLEEP, ON VENT, TOLERATING SETTINGS WELL AT THIS TIME. RESPONDS TO TOUCH, UNABLE TO MAKE NEEDS KNOWN. NO ACUTE DISTRESS NOTED. ST WITH PVC 103BPM, [facility] 14 TV550 FI02 50% PEEP 5. MK MIDLINE INTACT AND FLUSHING WELL. GONCALVES CATHETER IN PLACE DRAINING CLEAR YELLOW URINE. SAFETY PRECAUTIONS IN PLACE; BED IN LOW POSITION AND LOCKED, HOB ELEVATED, SIDE RAILS UP X2, CALL LIGHT AND TABLE WITHIN REACH. WILL CONTINUE TO MONITOR PATIENT.
[2021-02-26 08:00] VITALS: BP 107/62
[2021-02-26] MEDS: PANTOPRAZOLE 40 MG VIAL IV SCH (08:40)
[2021-02-26] MEDS: TIMOLOL 0.5% SOLN OPHTH 5 ML BOTTLE EACHEYE SCH ×2 (08:45→16:41)
[2021-02-26] MEDS: POTASSIUM CL. PREMIX PERIPHER. 50 ML IV SCH ×2 (10:16→11:29)
[2021-02-26] MEDS: METRONIDAZOLE 500MG/ NS 100ML 500 MG in PREMIX 1 EA IV SCH ×2 (14:17→20:44)
[2021-02-26] MEDS: IV D5/0.45 NACL 1,000 ML IV PRN (16:24)
[2021-02-26 16:34] VITALS: BP 89/54
[2021-02-26] MEDS ORDERED: JEVITY 1.2 CAL 1,000 ML BOTTLE GT PRN (17:30)
--- NOTE | 2021-02-26 18:39 | NUR ---
GENERAL HARDWARE SALESPERSON CLOSING NOTE PATIENT REMAINS IN BED, ASLEEP, ON VENT, TOLERATING SETTINGS WELL AT THIS TIME. RESPONDS TO TOUCH, UNABLE TO MAKE NEEDS KNOWN. NO ACUTE DISTRESS NOTED. CURRENT TELE READING OF SR 95BPM, STABLE ON [facility] VENT AC 14 TV550 FI02 50% PEEP 5. MK MIDLINE INTACT AND FLUSHING WELL. GONCALVES CATHETER IN PLACE DRAINING CLEAR YELLOW URINE WITH A DAILY OUTPUT OF 550 MLS/HR. SAFETY PRECAUTIONS IN PLACE; BED IN LOW POSITION AND LOCKED, HOB ELEVATED, SIDE RAILS UP X2, CALL LIGHT AND TABLE WITHIN REACH. WILL ENDORSE TO WASH BOX OPERATOR NURSE.
[2021-02-26 20:00] VITALS: BP 105/69
--- NOTE | 2021-02-26 20:18 | NUR ---
drill operator automatic Opening Notes Patient was last seen awake resting in bed. Patient's alert and oriented x1 and is nonverbal. Patient's connected to a mechanical vent with no respiratory distress noted. Mechanical vent settings are AC= 14, TV= 550, FI02= 50%, and PEEP=5. Patient's on a tele monitor with no cardiac distress noted Patient's MK midline is intact, patent, and flushing well. Patient has a andres catheter in place. Safety measures in place: Bed locked, bed alarm on, side rails up x3, and call light within reach. Will continue to monitor the patient.
[2021-02-26] MEDS: LATANOPROST EYE DROP 0.005% 2.5 ML BOTTLE EACHEYE SCH (23:00)
[2021-02-26] MEDS: VANCOMYCIN 500 MG in IV D5W 100 ML IV SCH (23:22)
[2021-02-27] VITALS: BP 112/58
[2021-02-27] MEDS: CEFEPIME 2 GM in IV D5W 100 ML IV SCH ×3 (00:06→23:59)
[2021-02-27] MEDS ORDERED: LEVOFLOXACIN 750 MG /D5W 150ML 750 MG in PREMIX 1 EA IV SCH (01:00)
[2021-02-27] MEDS: IPRATROPIUM NEB FS 0.5 MG/2.5 ML AMPUL.NEB IH SCH ×4 (02:04→19:52)
[2021-02-27] MEDS: ALBUTEROL FS 2.5 MG/0.5 ML VIAL.NEB IH SCH ×4 (02:04→19:52)
[2021-02-27] MEDS: METRONIDAZOLE 500MG/ NS 100ML 500 MG in PREMIX 1 EA IV SCH ×3 (04:35→20:51)
[2021-02-27 06:18] LABS: BASOPHILS # (AUTO) 0.1 K/uL (0.0-0.2); BASOPHILS % (AUTO) 0.9 % (0.0-2.0); LYMPHOCYTES # (AUTO) 0.7 K/uL (0.8-4.8); LYMPHOCYTES % (AUTO) 7.4 % (20.0-44.0); MEAN CORPUSCULAR HGB CONC 34 g/dl (31.0-36.0); MEAN CORPUSCULAR VOLUME 93 fL (80-96); MONOCYTES # (AUTO) 0.8 K/uL (0.1-1.30); MONOCYTES % (AUTO) 8.2 % (2.0-12.0); NEUTROPHILS % (AUTO) 81.5 % (43.0-81.0); PLATELET COUNT (AUTO) 516 K/uL (150-450); RED BLOOD CELL COUNT(AUTO) 2.18 MIL/uL (4.5-6.0); WHITE BLOOD COUNT (AUTO) 9.8 K/uL (4.3-11.0)
[2021-02-27 06:38] LABS: MAGNESIUM 1.9 mg/dL (1.8-2.4); PHOSPHORUS 2.5 mg/dL (2.5-4.9); POTASSIUM 3.2 mmol/L (3.5-5.1)
[2021-02-27 06:43] LABS: HEMATOCRIT 20 % (39-51); HEMOGLOBIN 6.8 g/dL (13.5-17.5)
--- NOTE | 2021-02-27 07:30 | NUR ---
SHOP COORDINATOR NOTES PT IN BED, AWAKE, NON VERBAL, NO SIGN OF PAIN, NOT IN DISTRESS, VENT/TRACH IN PLACE, NO SHORTNESS OF BREATH NOTED, GT FEEDING INFIUSING WELL, TOLERATES WELL, KEPT WARM AND COMFORTABLE IN BED.
[2021-02-27 08:16] LABS: LYMPHOCYTES % (MANUAL) 7 % (16-48); MONOCYTES % (MANUAL) 10 % (0-11.0); NEUTROPHILS % (MANUAL) 83 (42-76)
[2021-02-27] MEDS: PANTOPRAZOLE 40 MG VIAL IV SCH (08:17)
[2021-02-27] MEDS: TIMOLOL 0.5% SOLN OPHTH 5 ML BOTTLE EACHEYE SCH ×2 (08:19→16:57)
[2021-02-27] MEDS: CADEXOMER IODINE 40 GM TUBE TP SCH (08:19)
[2021-02-27] MEDS: ACETAMINOPHEN 650 MG/SUPP.RECT RC PRN (08:45)
[2021-02-27] MEDS: POTASSIUM CL. PREMIX PERIPHER. 50 ML IV SCH ×4 (09:52→22:04)
[2021-02-27] MEDS: VANCOMYCIN 500 MG in IV D5W 100 ML IV SCH ×2 (11:00→23:00)
[2021-02-27 15:54] VITALS: BP 125/67
[2021-02-27 16:09] VITALS: BP 114/70
[2021-02-27 17:09] VITALS: BP 120/94
--- NOTE | 2021-02-27 18:30 | NUR ---
TAKE UP SUPERVISOR NOTES PT IN BED, AWAKE, NON VERBAL, NO SIGN OF PAIN OR DISTRESS, GT FEEDING INFUSINGWELL, CURRENTLY RECEIVING 1 UNIT PRBC ORDERED, PHONE CONSENT GIVEN BY SISTER, TOLERATES WELL, NO ADVERSE REACTION NOTED, PM CARE PROVIDED, TURNED AND REPOSITIONED Q2 HOURS, KEPT WARM AND COMFORTABLE.
[2021-02-27 19:03] VITALS: BP 123/70
--- NOTE | 2021-02-27 19:30 | NUR ---
AIRCRAFT ELECTRICAL SYSTEMS SPECIALIST OPENING NOTE RECEIVED PATIENT IN BED, AWAKE, ON VENT, TOLERATING SETTINGS WELL AT THIS TIME. RESPONDS TO TOUCH, UNABLE TO MAKE NEEDS KNOWN. NO ACUTE DISTRESS NOTED. ON TELE MONITOR READING SHOWS ST WITH PVC AT 112 BPM, STABLE ON [facility] VENT AC 14 TV550 FI02 50% PEEP 5. WITH MK MIDLINE INTACT AND FLUSHING WELL, ONGOING D51/2 NS X 75 CC/HR INFUSING WELL, NO REDNESS, NO S/SX OF INFILTRATION NOTED. G-TUBE IN PLACE, ONGOING FEEDING OF JEVITY 1.2 AT 30CC/HR TOLERATING WELL. GONCALVES CATHETER IN PLACE DRAINING CLEAR YELLOW URINE. SAFETY PRECAUTIONS IN PLACE; BED IN LOWEST LOCKED POSITION, HOB ELEVATED, SIDE RAILS UP X2, CALL LIGHT AND TABLE WITHIN REACH. WILL CONTINUE TO MONITOR PATIENT.
[2021-02-27] MEDS: IV D5/0.45 NACL 1,000 ML IV PRN (19:34)
[2021-02-27 20:00] VITALS: BP 133/57
[2021-02-27] MEDS: LATANOPROST EYE DROP 0.005% 2.5 ML BOTTLE EACHEYE SCH (22:02)
[2021-02-28] VITALS: BP 111/70
[2021-02-28] MEDS: IPRATROPIUM NEB FS 0.5 MG/2.5 ML AMPUL.NEB IH SCH ×4 (01:35→20:39)
[2021-02-28] MEDS: ALBUTEROL FS 2.5 MG/0.5 ML VIAL.NEB IH SCH ×4 (01:35→20:39)
[2021-02-28 04:00] VITALS: BP 130/62
[2021-02-28] MEDS: METRONIDAZOLE 500MG/ NS 100ML 500 MG in PREMIX 1 EA IV SCH ×3 (05:10→20:44)
--- NOTE | 2021-02-28 06:45 | NUR ---
FINANCIAL PLANNING CONSULTANT CLOSING NOTES PATIENT IN BED, AWAKE, ON VENT, TOLERATING SETTINGS WELL AT THIS TIME. IN NO ACUTE DISTRESS. RESPONDS TO TOUCH AND VERBAL STIMULI, UNABLE TO MAKE NEEDS KNOWN. ON TELE MONITOR READING SHOWS ST WITH PVC AT 115 BPM, [facility] TV550 FI02 50% PEEP 5. IV ACCESS ON MK MIDLINE INTACT AND FLUSHING WELL, ONGOING D51/2 NS X 75 CC/HR INFUSING WELL, NO REDNESS, NO S/SX OF INFILTRATION NOTED. G-TUBE IN PLACE, ONGOING FEEDING OF JEVITY 1.2 AT 35CC/HR TOLERATING WELL. GONCALVES CATHETER IN PLACE DRAINING CLEAR YELLOW URINE. SAFETY PRECAUTIONS OBSERVED AND MAINTAINED DURING THE SHIFT; BED IN LOWEST LOCKED POSITION, HOB ELEVATED, SIDE RAILS UP X2, CALL LIGHT AND TABLE WITHIN REACH. NEEDS ATTENDED AND MET. WILL ENDORSE TO MORNING SHIFT NURSE FOR SANDY.
--- NOTE | 2021-02-28 07:06 | NUR ---
STORM SASH MAKER OPENING NOTE RECEIVED PATIENT IN BED, AWAKE, ON VENT, TOLERATING SETTINGS WELL AT THIS TIME. RESPONDS TO TOUCH, UNABLE TO MAKE NEEDS KNOWN. NO ACUTE DISTRESS NOTED. ON TELE MONITOR READING SHOWS ST WITH PVC AT 114 BPM, STABLE ON [facility] VENT AC 14 TV550 FI02 50% PEEP 5. WITH MK MIDLINE INTACT AND FLUSHING WELL, ONGOING D51/2 NS X 75 CC/HR INFUSING WELL, NO REDNESS, NO S/SX OF INFILTRATION NOTED. G-TUBE IN PLACE, ONGOING FEEDING OF JEVITY 1.2 AT 30CC/HR TOLERATING WELL. GONCALVES CATHETER IN PLACE DRAINING CLEAR YELLOW URINE. SAFETY PRECAUTIONS IN PLACE; BED IN LOWEST LOCKED POSITION, HOB ELEVATED, SIDE RAILS UP X2, CALL LIGHT AND TABLE WITHIN REACH. WILL CONTINUE TO MONITOR PATIENT.
[2021-02-28 07:16] LABS: BASOPHILS # (AUTO) 0.1 K/uL (0.0-0.2); BASOPHILS % (AUTO) 0.6 % (0.0-2.0); EOSINOPHILS % (AUTO) 0.8 % (0.0-6.0); HEMATOCRIT 26 % (39-51); HEMOGLOBIN 8.3 g/dL (13.5-17.5); LYMPHOCYTES # (AUTO) 0.9 K/uL (0.8-4.8); LYMPHOCYTES % (AUTO) 7.5 % (20.0-44.0); MEAN CORPUSCULAR HGB CONC 32 g/dl (31.0-36.0); MEAN CORPUSCULAR VOLUME 91 fL (80-96); MONOCYTES % (AUTO) 8.4 % (2.0-12.0); NEUTROPHILS # (AUTO) 10.1 K/uL (1.8-8.9); NEUTROPHILS % (AUTO) 82.7 % (43.0-81.0); PLATELET COUNT (AUTO) 473 K/uL (150-450); RED BLOOD CELL COUNT(AUTO) 2.83 MIL/uL (4.5-6.0); WHITE BLOOD COUNT (AUTO) 12.2 K/uL (4.3-11.0)
[2021-02-28] MEDS: PANTOPRAZOLE 40 MG VIAL IV SCH (08:36)
[2021-02-28] MEDS: TIMOLOL 0.5% SOLN OPHTH 5 ML BOTTLE EACHEYE SCH ×2 (08:36→16:32)
[2021-02-28] MEDS: CADEXOMER IODINE 40 GM TUBE TP SCH (08:36)
[2021-02-28 08:54] VITALS: BP 110/54
[2021-02-28 09:22] LABS: ALBUMIN 1.5 g/dL (3.4-5.0); BILIRUBIN,TOTAL 0.4 mg/dL (0.2-1.0); CALCIUM, SERUM 7.5 mg/dL (8.5-10.1); MAGNESIUM 1.9 mg/dL (1.8-2.4); PHOSPHORUS 2.6 mg/dL (2.5-4.9); TOTAL PROTEIN, SERUM 5.7 g/dL (6.4-8.2)
[2021-02-28] MEDS: VANCOMYCIN HCL 0.75 GM in IV D5W 250 ML IV SCH (10:00)
[2021-02-28] MEDS: CEFEPIME 2 GM in IV D5W 100 ML IV SCH (11:05)
[2021-02-28 12:19] LABS: ABG BASE EXCESS 0.5 mmol/L; ABG OXYGEN SATURATION 95.1 % (92.0-98.5); ABG PCO2 35.2 mmHg (35.0-45.0); ABG PH 7.456 (7.350-7.450); ABG PO2 73.5 mmHg (75.0-100.0); AaDO2 171.2 mmHg; COHb 0.3 % (0.5-1.5); O2Hb 94.8 % (94.0-97.0); SITE, ABG Right Radial; VENT MODE, BG AC 14 450 +5 40%
[2021-02-28] MEDS: IV D5/0.45 NACL 1,000 ML IV PRN (14:30)
[2021-02-28] MEDS ORDERED: JEVITY 1.2 CAL 1,000 ML BOTTLE GT PRN (14:59)
[2021-02-28] MEDS: PROSOURCE / PROSTAT (PYXIS) 30 ML UDC GT SCH ×2 (15:58→16:31)
[2021-02-28 16:01] VITALS: BP 119/66
--- NOTE | 2021-02-28 18:18 | NUR ---
DIRECTOR OF QUALITY CONTROL CLOSING NOTE PATIENT IN BED, RESTING ON VENT, TOLERATING SETTINGS WELL AT THIS TIME. RESPONDS TO TOUCH, UNABLE TO MAKE NEEDS KNOWN. NO ACUTE DISTRESS NOTED. ON TELE MONITOR READING SHOWS ST WITH PVC AT 110 BPM, [facility] TV550 FI02 50% PEEP 5. WITH MK MIDLINE INTACT AND FLUSHING WELL, ONGOING D51/2 NS X 75 CC/HR INFUSING WELL, NO REDNESS, NO S/SX OF INFILTRATION NOTED. G-TUBE IN PLACE, ONGOING FEEDING OF JEVITY 1.2 AT 37 CC/HR TOLERATING WELL. GONCALVES CATHETER IN PLACE DRAINING CLEAR YELLOW URINE. WOUND CARE PERFORMED THROUGHOUT SHIFT. TURNING PERFORMED THROUGHOUT SHIFT SAFETY PRECAUTIONS IN PLACE; BED IN LOWEST LOCKED POSITION, HOB ELEVATED, SIDE RAILS UP X2, CALL LIGHT AND TABLE WITHIN REACH. WILL ENDORSE TO ONCOMING SHIFT
--- NOTE | 2021-02-28 19:30 | NUR ---
GROUNDS/MAINTENANCE SPECIALIST OPENING NOTE RECEIVED PATIENT IN BED, AWAKE, ON VENT, TOLERATING SETTINGS WELL AT THIS TIME. RESPONDS TO TOUCH, UNABLE TO MAKE NEEDS KNOWN. NO ACUTE DISTRESS NOTED. ON TELE MONITOR READING SHOWS ST WITH PVC HR AT 120 BPM, STABLE ON [facility] VENT AC 14 TV550 FI02 50% PEEP 5. WITH MK MIDLINE INTACT AND FLUSHING WELL, ONGOING D51/2 NS X 75 CC/HR INFUSING WELL, NO REDNESS, NO S/SX OF INFILTRATION NOTED. G-TUBE IN PLACE, ONGOING FEEDING OF JEVITY 1.2 AT 37CC/HR TOLERATING WELL. GONCALVES CATHETER IN PLACE DRAINING CLEAR YELLOW URINE. SAFETY PRECAUTIONS IN PLACE; BED IN LOWEST LOCKED POSITION, HOB ELEVATED, SIDE RAILS UP X2, CALL LIGHT AND TABLE WITHIN REACH. WILL CONTINUE TO MONITOR PATIENT.
[2021-02-28 20:00] VITALS: BP 116/75
[2021-02-28 20:15] VITALS: BP 116/75
[2021-02-28] MEDS: SODIUM CL FOR INHALATION 3% 15 ML VIAL.NEB IH SCH (20:59)
[2021-02-28] MEDS: LATANOPROST EYE DROP 0.005% 2.5 ML BOTTLE EACHEYE SCH (21:25)
[2021-03-01] VITALS: BP 127/79
[2021-03-01 00:28] VITALS: BP 129/79
[2021-03-01] MEDS: CEFEPIME 2 GM in IV D5W 100 ML IV SCH ×2 (00:33→11:00)
[2021-03-01] MEDS: IPRATROPIUM NEB FS 0.5 MG/2.5 ML AMPUL.NEB IH SCH ×3 (02:03→13:29)
[2021-03-01] MEDS: ALBUTEROL FS 2.5 MG/0.5 ML VIAL.NEB IH SCH ×3 (02:03→13:28)
[2021-03-01 04:00] VITALS: BP 129/92
--- NOTE | 2021-03-01 05:01 | NUR ---
RN NOTES PRELIMINARY RESULT OF RESPIRATORY CULTURE IN. INFORMED ID CONSULT GIL PERALES.
[2021-03-01] MEDS: METRONIDAZOLE 500MG/ NS 100ML 500 MG in PREMIX 1 EA IV SCH ×2 (05:08→12:36)
--- NOTE | 2021-03-01 06:31 | NUR ---
PEDIATRIC HOSPITALIST CLOSING NOTES PATIENT IN BED, AWAKE, ON VENT, TOLERATING SETTINGS WELL AT THIS TIME. RESPONDS TO TOUCH, UNABLE TO MAKE NEEDS KNOWN. NO ACUTE DISTRESS NOTED. ON TELE MONITOR READING SHOWS ST WITH PVC HR AT 110 BPM, STABLE ON [facility] VENT AC 14 TV550 FI02 50% PEEP 5. WITH MK MIDLINE INTACT AND FLUSHING WELL, ONGOING D51/2 NS X 75 CC/HR INFUSING WELL, NO REDNESS, NO S/SX OF INFILTRATION NOTED. G-TUBE IN PLACE, ONGOING FEEDING OF JEVITY 1.2 AT 40CC/HR TOLERATING WELL. GONCALVES CATHETER IN PLACE DRAINING CLEAR YELLOW URINE. SAFETY PRECAUTIONS OBSERVED AND MAINTAINED DURING THE SHIFT; BED IN LOWEST LOCKED POSITION, HOB ELEVATED, SIDE RAILS UP X2, CALL LIGHT AND TABLE WITHIN REACH. WOUND CARE DONE, PICTURES TAKEN AND FILES IN CHART. ALL NEEDS ATTENDED AND MET. TURNED PATIENT ORDERED. WILL ENDORSE TO MORNING NURSE FOR SANDY.
[2021-03-01 07:06] LABS: BASOPHILS # (AUTO) 0.1 K/uL (0.0-0.2); BASOPHILS % (AUTO) 0.5 % (0.0-2.0); EOSINOPHILS % (AUTO) 0.7 % (0.0-6.0); HEMATOCRIT 25 % (39-51); HEMOGLOBIN 8.3 g/dL (13.5-17.5); LYMPHOCYTES % (AUTO) 6.9 % (20.0-44.0); MEAN CORPUSCULAR HGB CONC 33 g/dl (31.0-36.0); MEAN CORPUSCULAR VOLUME 91 fL (80-96); MONOCYTES # (AUTO) 1.2 K/uL (0.1-1.30); MONOCYTES % (AUTO) 8.3 % (2.0-12.0); NEUTROPHILS % (AUTO) 83.6 % (43.0-81.0); PLATELET COUNT (AUTO) 501 K/uL (150-450); RED BLOOD CELL COUNT(AUTO) 2.78 MIL/uL (4.5-6.0); WHITE BLOOD COUNT (AUTO) 14.3 K/uL (4.3-11.0)
--- NOTE | 2021-03-01 07:08 | NUR ---
BAR TACKER OPENING NOTE RECEIVED PATIENT IN BED, AWAKE, ON VENT, TOLERATING SETTINGS WELL AT THIS TIME. RESPONDS TO TOUCH, UNABLE TO MAKE NEEDS KNOWN. NO ACUTE DISTRESS NOTED. ON TELE MONITOR READING SHOWS ST WITH PVC AT 100 BPM, STABLE ON [facility] VENT AC 14 TV550 FI02 50% PEEP 5. WITH MK MIDLINE INTACT AND FLUSHING WELL, ONGOING D51/2 NS X 75 CC/HR INFUSING WELL, NO REDNESS, NO S/SX OF INFILTRATION NOTED. G-TUBE IN PLACE, ONGOING FEEDING OF JEVITY 1.2 AT 30CC/HR TOLERATING WELL. GONCALVES CATHETER IN PLACE DRAINING CLEAR YELLOW URINE. SAFETY PRECAUTIONS IN PLACE; BED IN LOWEST LOCKED POSITION, HOB ELEVATED, SIDE RAILS UP X2, CALL LIGHT AND TABLE WITHIN REACH. WILL CONTINUE TO MONITOR PATIENT
[2021-03-01] MEDS: SODIUM CL FOR INHALATION 3% 15 ML VIAL.NEB IH SCH (07:35)
[2021-03-01 07:50] LABS: CREATININE 1.1 mg/dL (0.6-1.3); MAGNESIUM 1.8 mg/dL (1.8-2.4); PHOSPHORUS 2.5 mg/dL (2.5-4.9); POTASSIUM 3.2 mmol/L (3.5-5.1)
[2021-03-01 08:15] VITALS: BP 109/75
[2021-03-01] MEDS: PROSOURCE / PROSTAT (PYXIS) 30 ML UDC GT SCH ×2 (08:32→12:36)
[2021-03-01] MEDS: PANTOPRAZOLE 40 MG VIAL IV SCH (08:32)
[2021-03-01] MEDS: CADEXOMER IODINE 40 GM TUBE TP SCH (08:33)
[2021-03-01] MEDS: TIMOLOL 0.5% SOLN OPHTH 5 ML BOTTLE EACHEYE SCH (08:33)
[2021-03-01] MEDS: VANCOMYCIN HCL 0.75 GM in IV D5W 250 ML IV SCH (09:01)
[2021-03-01] MEDS: POTASSIUM CHLORIDE 20 MEQ POWDER PACKET GT SCH ×2 (09:23→09:58)
[2021-03-01 11:00] VITALS: BP 130/74
--- NOTE | 2021-03-01 15:52 | NUR ---
BULK PLANT AGENT NOTE RECEIVED ORDER FOR DISCHARGE PATIENT IN BED, AWAKE, ON VENT, TOLERATING SETTINGS WELL AT THIS TIME. RESPONDS TO TOUCH, UNABLE TO MAKE NEEDS KNOWN. NO ACUTE DISTRESS NOTED. STABLE ON [facility] VENT AC 14 TV550 FI02 50% PEEP 5. WITH MK MIDLINE INTACT AND FLUSHING WELL, LEFT IN PLACE FOR CONTINUED IV ATB. G-TUBE IN PLACE, ONGOING FEEDING OF JEVITY 1.2 AT 30CC/HR TOLERATING WELL. GONCALVES CATHETER IN PLACE DRAINING CLEAR YELLOW URINE. DISCHARGE INSTRUCTIONS GIVEN TO RN BRANDS EDITOR IN [facility] SUBACUTE. PATIENT LEFT THE FLOOR IN STABLE CONDITION
[2021-03-01] MEDS ORDERED: SODI3VIA16 IH (16:35)
[2021-03-01] MEDS ORDERED: AMIN30LI2 GT (16:35)
[2021-03-01] MEDS ORDERED: ALLA266C2 TP (16:35)
[2021-03-01] MEDS ORDERED: METR500P3 IV (16:35)
[2021-03-01] MEDS ORDERED: CADE40GE2 TP (16:35)
[2021-03-01] MEDS ORDERED: ACET650S11 RC (16:35)
== END 2021-03-01 15:50 | DRG 853 ==
LOC: ER 22:50 → TELE 02-25 02:06
PROC: 5A1945Z Respiratory Ventilation, 24-96 Consecutive Hours (ICD-10-PCS; principal; 2021-02-25)
PROC: 05H633Z Insertion of Infusion Device into Left Subclavian Vein, Percutaneous Approach (ICD-10-PCS; 2021-02-25)
PROC: B547ZZA Ultrasonography of Left Subclavian Vein, Guidance (ICD-10-PCS; 2021-02-25)
PROC: 0JBR0ZZ Excision of Left Foot Subcutaneous Tissue and Fascia, Open Approach (ICD-10-PCS; 2021-02-26)
PROC: 30233N1 Transfusion of Nonautologous Red Blood Cells into Peripheral Vein, Percutaneous Approach (ICD-10-PCS; 2021-02-27)
DX: A41.9 Sepsis, unspecified organism (principal); L89.893 Pressure ulcer of other site, stage 3; J69.0 Pneumonitis due to inhalation of food and vomit; J96.21 Acute and chronic respiratory failure with hypoxia; Z99.11 Dependence on respirator [ventilator] status; N39.0 Urinary tract infection, site not specified; I25.10 Atherosclerotic heart disease of native coronary artery without angina pectoris; I10 Essential (primary) hypertension; Z86.73 Personal history of transient ischemic attack (TIA), and cerebral infarction without residual deficits; D64.9 Anemia, unspecified; G80.9 Cerebral palsy, unspecified; M19.90 Unspecified osteoarthritis, unspecified site; N40.0 Benign prostatic hyperplasia without lower urinary tract symptoms; Z20.822 Contact with and (suspected) exposure to COVID-19; Z85.47 Personal history of malignant neoplasm of testis; Z79.82 Long term (current) use of aspirin; Z93.1 Gastrostomy status; R13.10 Dysphagia, unspecified; L89.616 Pressure-induced deep tissue damage of right heel; L89.896 Pressure-induced deep tissue damage of other site; M24.571 Contracture, right ankle; M24.572 Contracture, left ankle; R77.8 Other specified abnormalities of plasma proteins
CPT/HCPCS: 31720; 36410; 36415; 36600; 71045-TC; 74018; 74022-TC; 80048-TC; 80053-TC; 80076-TC; 80202-TC; 81001; 82803-TC; 83540-TC; 83605-TC; 83735-TC; 83880; 84100-TC; 84484-TC; 85025-TC; 85730-TC; 86850-TC; 87040-TC; 87070-TC; 87081-TC; 87086-TC; 94003-TC; 94760-TC; 94762-TC; 94799-TC; 99082-TC; A4216; A4217; A4218; A4623; A7526; C9113; C9803; G0378; J0692; J1956; J2405; J3370; J3475; J3480; J3490; J7042; J7050; J7060; P9016; U0003

== ENCOUNTER 2021-03-27 10:15 | Inpatient (IN) | payer MEDICARE, OTHER ==
[~2021-03-27] VITALS: Ht 182.9 cm; Wt 84.8 kg
[~2021-03-27 10:15] MED LIST changes: -ACET-868 GT; +ACET650S11 RC; +ALLA266C2 TP; +AMIN30LI2 GT; +CADE40GE2 TP; +METR500P3 IV; +SODI3VIA16 IH; -TOBR40VI2 INH
--- NOTE | 2021-03-27 10:15 | NUR ---
SENT BY PMD FROM SUB ACUTE FOR LOW H & H. PT IS AAOX0, ON VENT VIA TRACH, HOOKED TO KNITTING SUPERVISOR, KEPT RESTED AND COMFORTABLE. AWAITING ER MD FOR EVAL. WILL CONTINUE TO MONITOR.
--- NOTE | 2021-03-27 10:15 | NUR ---
RT NOTE: PATIENT TRANSPORTED TO ER WITH LTV MECHANICAL VENT. SETTINGS PER MD ORDER: AC 14,VT450,40%, PEEP=+5. ALARMS SET AND AUDIBLE. SUCTIONED AND LAVAGED LARGE AMOUNT OF THICK SECRETIONS. VENT PLUGGED INTO RED OUTLET. AMBU BAG AND NEW TRACH AT [facility].
--- NOTE | 2021-03-27 10:20 | NUR ---
IV LINE ESTABLISHED BLOOD DRAWN AND SENT TO LAB.
--- NOTE | 2021-03-27 11:03 | NUR ---
MOVE SHEET SUBMITTED AND CALLED FOR TELE BED.
[2021-03-27] MEDS ORDERED: SODI473S8 TD (11:05)
[2021-03-27] MEDS ORDERED: ALLA266C2 TP (11:05)
[2021-03-27] MEDS ORDERED: VANC250V IV (11:05)
[2021-03-27] MEDS ORDERED: POVI30LI TP (11:05)
[2021-03-27] MEDS ORDERED: POLY15DR40 EACHEYE (11:05)
[2021-03-27] MEDS ORDERED: PETR113O TP (11:05)
[2021-03-27] MEDS ORDERED: HYDR1SOL TD (11:05)
[2021-03-27] MEDS ORDERED: MERO500V23 IV (11:05)
[2021-03-27] MEDS ORDERED: ACET-868 GT (11:05)
[2021-03-27] MEDS ORDERED: NUTR1PAC14 GT (11:05)
[2021-03-27] MEDS ORDERED: HYDR-3972 GT (11:05)
[2021-03-27] MEDS ORDERED: MULT-447 GT (11:05)
[2021-03-27] MEDS ORDERED: PRUNELAX GT (11:05)
--- NOTE | 2021-03-27 11:22 | NUR ---
CALLED SISTER MYLES CONSENT WAS OBTAINED FOR POSSIBLE BLOOD TRANSFUSION.
--- NOTE | 2021-03-27 11:40 | NUR ---
COVID SPECIMEN OBTAINED AND SENT TO LAB.
--- NOTE | 2021-03-27 13:25 | NUR ---
BLOOD TRANSFUSION STARTED. V/S STABLE.
--- NOTE | 2021-03-27 13:46 | NUR ---
PER GALA GIVE REPORT AFTER 30MINS
[2021-03-27] MEDS ORDERED: ONDANSETRON HCL/PF 4 MG/2 ML VIAL IVP PRN (14:30)
[2021-03-27] MEDS ORDERED: Z GUARD REMEDY 2 OZ OINT TP PRN (14:30)
[2021-03-27] MEDS ORDERED: JEVITY 1.2 CAL 1,000 ML BOTTLE GT SCH (14:30)
[2021-03-27] MEDS ORDERED: POLYVINYL ALCOHOL 15 ML BOTTLE OP PRN (14:30)
[2021-03-27] MEDS ORDERED: VANCOMYCIN HCL 750 MG IV SCH (14:30)
[2021-03-27] MEDS ORDERED: MAG HYDROX/AL HYDROX/SIMETH 30 ML UDC PO PRN (14:30)
--- NOTE | 2021-03-27 14:31 | NUR ---
CALLED [facility] FOR REPORT RN NOT AVAILABLE.
--- NOTE | 2021-03-27 14:46 | NUR ---
REPORT GIVEN TO ROSALINDA PARKER FOR SANDY. WITH ONGOING BLOOD TRANSFUSION. V/S STABLE.
--- NOTE | 2021-03-27 15:00 | NUR ---
EPIDEMIOLOGY INTERN NOTES RECEIVED PT FROM E.R. STAFF VIA BED, WITH RT, TO ROOM 329, PT IS AWAKE, NON VERBAL, NO FACIAL GRIMACING, NO SOB, NOT IN DISTRESS, ADMITTING ORDERS RECEIVED FROM DR. HOLBROOK, WITH ONGOING BLOOD TRANSFUSION, TOLERATES WELL, VS STABLE, SUCTIONED SECRETIONS NEEDED, KEPT COMFORTABLE.
[2021-03-27 15:10] VITALS: BP 127/85
[2021-03-27] MEDS: PANTOPRAZOLE 40 MG/PACK PACK GT SCH (16:49)
[2021-03-27] MEDS: MULTIVIT W/MINERALS 1 TAB TABLET PO SCH (16:49)
[2021-03-27] MEDS: FERROUS SULFATE UDC 300 MG/5 ML UDC GT SCH (16:49)
[2021-03-27] MEDS: DOCUSATE SODIUM LIQ 100 MG/10 ML UDC GT SCH (16:49)
[2021-03-27] MEDS: TIMOLOL 0.5% SOLN OPHTH 5 ML BOTTLE EACHEYE SCH (16:50)
[2021-03-27] MEDS: MEROPENEM 500 MG in IV NS 0.9% 50 ML IV SCH ×2 (16:52→22:07)
[2021-03-27] MEDS: PROSOURCE / PROSTAT (PYXIS) 30 ML UDC GT SCH ×2 (16:55→21:29)
[2021-03-27] MEDS: VANCOMYCIN HCL 0.75 GM in IV D5W 250 ML IV SCH (17:57)
--- NOTE | 2021-03-27 18:41 | NUR ---
GLASS ENAMEL MIXER NOTES PT IN BED, RESTING, PT SEEN AND EXAMINED BY DR. HOLBROOK, SECRETIONS SUCTIONED NEEDED, SKIN ASSESSMENT AND PHOTOS DONE, REPOSITIONED FOR COMFORT, HEEL PROTECTORS APPLIED, STARTED ON GT FEEDING, TOLERATES WELL, PM MEDS GIVEN ORDERED, KEPT WARM AND COMFORTABLE IN BED.
--- NOTE | 2021-03-27 20:03 | NUR ---
recorder helper seismograph Opening Notes Patient was last seen sleeping in bed. Patient's alert and oriented x0. Patient's connected to a vent with no respiratory distress noted. Patient's connected to a tele monitor with no cardiac distress noted. Patient deanna a right upper arm midline and an IV access on his LAC gauge #18.Patient's in no acute distress at this time. Safety measures in place: Bed locked, bed alarm on, side rails up x3, and call light within reach. Will continue to monitor the patient.
[2021-03-27] MEDS ORDERED: MEROPENEM 500 MG VIAL IV SCH (21:00)
[2021-03-27] MEDS: LATANOPROST EYE DROP 0.005% 2.5 ML BOTTLE EACHEYE SCH (21:29)
[2021-03-27] MEDS ORDERED: ATORVASTATIN 40 MG TABLET GT SCH (22:00)
[2021-03-28] MEDS: ACETAMINOPHEN 325 MG TABLET PO PRN (04:07)
[2021-03-28] MEDS: MEROPENEM 500 MG in IV NS 0.9% 50 ML IV SCH ×3 (06:43→22:39)
[2021-03-28 07:29] LABS: BASOPHILS # (AUTO) 0.1 K/uL (0.0-0.2); BASOPHILS % (AUTO) 0.5 % (0.0-2.0); EOSINOPHILS % (AUTO) 0.1 % (0.0-6.0); HEMATOCRIT 31 % (39-51); HEMOGLOBIN 10.2 g/dL (13.5-17.5); LYMPHOCYTES # (AUTO) 0.9 K/uL (0.8-4.8); LYMPHOCYTES % (AUTO) 6.1 % (20.0-44.0); MEAN CORPUSCULAR HGB CONC 33 g/dl (31.0-36.0); MEAN CORPUSCULAR VOLUME 91 fL (80-96); MONOCYTES # (AUTO) 1.1 K/uL (0.1-1.30); MONOCYTES % (AUTO) 7.4 % (2.0-12.0); NEUTROPHILS # (AUTO) 12.8 K/uL (1.8-8.9); NEUTROPHILS % (AUTO) 85.9 % (43.0-81.0); PLATELET COUNT (AUTO) 458 K/uL (150-450); WHITE BLOOD COUNT (AUTO) 14.9 K/uL (4.3-11.0)
--- NOTE | 2021-03-28 07:37 | NUR ---
application technician Closing Notes Patient was last seen awake in bed resting. Patient's alert and oriented x0. Patient's connected to a vent with no respiratory distress noted. Patient's connected to a tele monitor with no cardiac distress noted. Patient has a right upper arm midline and an IV access on his LAC gauge #18 both intact, patent, and flushing well. Patient's in no acute distress at this time. Safety measures in place: Bed locked, bed alarm on, side rails up x3, and call light within reach. Will endorse care to the day shift nurse.
--- NOTE | 2021-03-28 07:40 | NUR ---
INNOVATION MANAGER OPENING NOTES RECEIVED PATIENT IN BED AWAKE. ALERT AND ORIENTED X4. NO SIGNS OR SYMPTOMS OF DISTRESS NOTED. NO SOB. BREATHING IS EVEN AND UNLABORED. IV ACCESS MK MIDLINE PATENT AND INTACT. CONNECTED TO EXTERNAL TELE MONITOR WITH SINUS RHYTHM READING. SAFETY MEASURES IN PLACE WITH BED LOCKED AT LOW POSITION AND SIDE RAILS UP X 2. WILL CONTINUE TO MONITOR PATIENT THROUGHOUT SHIFT. Addendum: 03/28/21 at 0743 by GANESH GODINEZ RN ABOVE NOTE ERROR-WRONG PATIENT INNOVATION MANAGER OPENING NOTES RECEIVED PATIENT IN BED, OBTUNDED. NO SIGNS OR SYMPTOMS OF DISTRESS NOTED. PATIENT ON VENT. IV ACCESS MK MIDLINE AND LAC#18 SL PATENT AND INTACT. CONNECTED TO EXTERNAL TELE MONITOR WITH ST READING 120-140 BASELINE. SAFETY MEASURES IN PLACE WITH BED LOCKED AT LOW POSITION AND SIDE RAILS UP X 2. WILL CONTINUE TO MONITOR PATIENT THROUGHOUT SHIFT.
[2021-03-28 08:06] LABS: CALCIUM, SERUM 9.5 mg/dL (8.5-10.1); MAGNESIUM 2.9 mg/dL (1.8-2.4); POTASSIUM 4.6 mmol/L (3.5-5.1)
[2021-03-28 08:34] VITALS: BP 109/71
[2021-03-28] MEDS: DOCUSATE SODIUM LIQ 100 MG/10 ML UDC GT SCH ×2 (09:11→17:45)
[2021-03-28] MEDS: PANTOPRAZOLE 40 MG/PACK PACK GT SCH (09:11)
[2021-03-28] MEDS: FOLIC ACID 1 MG TABLET GT SCH (09:11)
[2021-03-28] MEDS: LORATADINE 10 MG TABLET GT SCH (09:11)
[2021-03-28] MEDS: FERROUS SULFATE UDC 300 MG/5 ML UDC GT SCH ×2 (09:11→17:45)
[2021-03-28] MEDS: PROSOURCE / PROSTAT (PYXIS) 30 ML UDC GT SCH ×4 (09:12→21:00)
[2021-03-28] MEDS: TIMOLOL 0.5% SOLN OPHTH 5 ML BOTTLE EACHEYE SCH ×2 (09:13→17:46)
[2021-03-28] MEDS: MULTIVIT W/MINERALS 1 TAB TABLET PO SCH (09:21)
[2021-03-28 12:00] VITALS: BP 102/68
[2021-03-28] MEDS ORDERED: IV NS 0.9% 1,000 ML IV ONE (13:00)
[2021-03-28] MEDS: IPRATROPIUM NEB FS 0.5 MG/2.5 ML AMPUL.NEB NEB SCH ×2 (14:26→20:07)
[2021-03-28] MEDS: ALBUTEROL FS 2.5 MG/0.5 ML VIAL.NEB NEB SCH ×2 (14:26→20:07)
[2021-03-28 16:03] VITALS: BP 109/71
[2021-03-28] MEDS ORDERED: IPRATROPIUM/ALBUTEROL INHALER IH SCH (18:00)
--- NOTE | 2021-03-28 19:30 | NUR ---
RN OPENING NOTE PATIENT IN BED, EYES CLOSED. PATIENT IS OBTUNDED AND NONVERBAL. PATIENT HAS TRACH PRESENT AND ON VENTILATOR. VENT SETTINGS AC 14, VT 450, FIO2 40%, PEEP 5. TELE MONITOR READS ST 118. PATIENT ALSO HAS G TUBE, FEEDING ON HOLD/NPO STATUS. PATIENT HAS MK MIDLINE, PATENT AND INTACT. DRESSING PRESENT ON ALBERT. FOOT. SAFETY MEASURES IN PLACE: BED LOCKED AND IN LOWEST POSITION, CALL LIGHT WITHIN REACH, SIDE RAILS UP. WILL MONITOR PATIENT CLOSELY.
--- NOTE | 2021-03-28 19:51 | NUR ---
PAPER GLUING OPERATOR CLOSING NOTES PATIENT IS IN BED, OBTUNDED AND NON VERBAL. NO SIGNS OR SYMPTOMS OF DISTRESS NOTED. IV ACCESS MK MIDLINE PATENT AND INTACT. CONNECTED TO EXTERNAL TELE MONITOR WITH SINUS TACHYCARDIA READING 120-140, MD AWARE. GONCALVES CATHETER PATENT, INTACT AND DRAINING WELL YELLOW AND CLEAR FLUID. G-TUBE FEEDING HELD PER DR. CJ HOLBROOK. SAFETY MEASURES IN PLACE WITH BED LOCKED AT LOW POSITION AND SIDE RAILS UP X 2. WILL ENDORSE CONTINUITY OF CARE TO ONCOMING SHIFT.
[2021-03-28 20:00] VITALS: BP 98/70
[2021-03-28 20:16] LABS: BILIRUBIN,DIRECT 0.2 mg/dL (0.0-0.2); BILIRUBIN,TOTAL 0.3 mg/dL (0.2-1.0); TOTAL PROTEIN, SERUM 7.3 g/dL (6.4-8.2)
[2021-03-28 20:25] LABS: ALBUMIN 1.3 g/dL (3.4-5.0)
--- NOTE | 2021-03-28 20:30 | NUR ---
RN NOTE NOTIFIED DR. NEWTON OF CRITICAL LAB VALUE FIBRINOGEN 832 AND ALBUMIN OF 1.3. NO NEW ORDERS. ALSO NOTIFIED OF NPO STATUS, DR. NEWTON ORDERED D5 NS AT 70 ML/HR TO PREVENT DEHYDRATION. WILL MONITOR PATIENT CLOSELY.
[2021-03-28] MEDS ORDERED: IV D5/0.45 NACL 1,000 ML IV PRN (21:30)
[2021-03-28] MEDS: LATANOPROST EYE DROP 0.005% 2.5 ML BOTTLE EACHEYE SCH (22:37)
[2021-03-28] MEDS: IV D5/ 0.9% NACL 1,000 ML IV PRN (22:39)
[2021-03-29] VITALS: BP 108/56
[2021-03-29 01:05] LABS: BILIRUBIN,URINE NEGATIVE (NEGATIVE); COLOR,URINE YELLOW (YELLOW); LEUKOCYTE ESTERASE ,URINE TRACE (NEGATIVE); NITRITE, URINE NEGATIVE (NEGATIVE); PROTEIN,URINE 30 mg/dl (NEGATIVE); UGLUCOSE NEGATIVE (NEGATIVE); UROBILINOGEN,URINE 0.2 EU/dL (0.2)
[2021-03-29] MEDS: IPRATROPIUM NEB FS 0.5 MG/2.5 ML AMPUL.NEB NEB SCH ×4 (01:14→20:30)
[2021-03-29] MEDS: ALBUTEROL FS 2.5 MG/0.5 ML VIAL.NEB NEB SCH ×4 (01:14→20:30)
[2021-03-29 01:33] LABS: BACTERIA,URINE Few /HPF (None Seen); RBC,URINE 81-100 /HPF (0-2)
[2021-03-29 01:34] LABS: SQUAMOUS EPITHELIAL CELL,UR Few /HPF (None Seen)
[2021-03-29 04:00] VITALS: BP 109/68
[2021-03-29] MEDS: MEROPENEM 500 MG in IV NS 0.9% 50 ML IV SCH ×3 (06:04→22:17)
--- NOTE | 2021-03-29 07:15 | NUR ---
RN NOTES PATIENT IN RESTING BED, OBTUNDED, OPENS EYES, NON-VERBAL. CURRENTLY ON TRACH/VENT W/ SETTINGS: AC 14, VT 450, FIO2 40%, PEEP 5, NO RESPIRATORY DISTRESS. ON TELE MONITORING, READING OF SINUS TACH, HR IN THE 110-120'S, NO CARDIAC DISTRESS. G TUBE CLAMPED AT THIS TIME, FEEDING ON HOLD PER ONLINE MEDIA DIRECTOR RN REPORT D/T MALPOSITIONED GT. MK MIDLINE PATENT AND INTACT, IVF INFUSING WELL. GONCALVES CATH IN PLACE, DRAINING YELLOW-COLORED URINE. SAFETY MEASURES IN PLACE: BED LOCKED AND IN LOWEST POSITION, CALL LIGHT WITHIN REACH, SIDE RAILS UP X2. WILL CONTINUE TO MONITOR.
[2021-03-29 07:26] LABS: BASOPHILS # (AUTO) 0.1 K/uL (0.0-0.2); BASOPHILS % (AUTO) 0.5 % (0.0-2.0); EOSINOPHILS % (AUTO) 0.7 % (0.0-6.0); HEMATOCRIT 30 % (39-51); HEMOGLOBIN 9.6 g/dL (13.5-17.5); LYMPHOCYTES # (AUTO) 1.3 K/uL (0.8-4.8); LYMPHOCYTES % (AUTO) 10.2 % (20.0-44.0); MEAN CORPUSCULAR HGB CONC 33 g/dl (31.0-36.0); MEAN CORPUSCULAR VOLUME 91 fL (80-96); MONOCYTES # (AUTO) 1.3 K/uL (0.1-1.30); MONOCYTES % (AUTO) 10.4 % (2.0-12.0); NEUTROPHILS # (AUTO) 9.7 K/uL (1.8-8.9); NEUTROPHILS % (AUTO) 78.2 % (43.0-81.0); PLATELET COUNT (AUTO) 450 K/uL (150-450); RED BLOOD CELL COUNT(AUTO) 3.23 MIL/uL (4.5-6.0); WHITE BLOOD COUNT (AUTO) 12.4 K/uL (4.3-11.0)
[2021-03-29 07:35] LABS: MAGNESIUM 2.6 mg/dL (1.8-2.4); PHOSPHORUS 3.6 mg/dL (2.5-4.9)
--- NOTE | 2021-03-29 07:40 | NUR ---
RN CLOSING NOTE PATIENT CURRENTLY TOLERATING VENT SETTINGS. PATIENT SUCTIONED NEEDED. NOT ON ANY APPARENT DISTRESS AT THIS TIME. ALL NEEDS MET AND ATTENDED. ALL ORDERS CARRIED OUT. WOUND CARE RENDERED. ENDORSED TO DAY SHIFT NURSE FOR SANDY.
[2021-03-29] MEDS: FERROUS SULFATE UDC 300 MG/5 ML UDC GT SCH ×2 (08:13→16:41)
[2021-03-29] MEDS: DOCUSATE SODIUM LIQ 100 MG/10 ML UDC GT SCH ×2 (08:13→16:41)
[2021-03-29] MEDS: LORATADINE 10 MG TABLET GT SCH (08:13)
[2021-03-29] MEDS: MULTIVIT W/MINERALS 1 TAB TABLET PO SCH (08:14)
[2021-03-29] MEDS: PANTOPRAZOLE 40 MG/PACK PACK GT SCH (08:14)
[2021-03-29] MEDS: FOLIC ACID 1 MG TABLET GT SCH (08:14)
[2021-03-29] MEDS: PROSOURCE / PROSTAT (PYXIS) 30 ML UDC GT SCH ×4 (08:14→20:29)
[2021-03-29] MEDS: TIMOLOL 0.5% SOLN OPHTH 5 ML BOTTLE EACHEYE SCH ×2 (08:18→16:43)
[2021-03-29 08:33] VITALS: BP 110/70
--- NOTE | 2021-03-29 09:09 | NUR ---
WOUND CARE CONSULT: PT FOLLOWED BY SURGICAL AND PODIATRY TEAMS FOR WOUND CARE. DEFER TO SURGICAL TEAMS CURRENTLY ON CASE FOR WOUNDS. SACRAL SCARRING, RT HIP DEEP TISSUE INJURY IN EVOLUTION AND LOWER EXTREMITY WOUNDS NOTED IN ADMISSION PHOTOS. PT IS ON FIRST STEP CIRRUS LOW AIRLOSS MATTRESS. ALL SKIN PROTECTION MEASURES IN PLACE AND DISCUSSED WITH NURSING STAFF. MD IN AGREEMENT WITH PLAN OF CARE.
[2021-03-29 10:02] LABS: BAND % (MANUAL) 4 % (0.0-5.0); EOSINOPHILS % (MANUAL) 4 % (0-4); LYMPHOCYTES % (MANUAL) 10 % (16-48); MONOCYTES % (MANUAL) 6 % (0-11.0); NEUTROPHILS % (MANUAL) 76 (42-76)
--- NOTE | 2021-03-29 13:45 | NUR ---
RN NOTES PATIENT WAS SEEN BY DR. HOLBROOK TODAY. G-TUBE REMOVED BY DR. HOLBROOK PER DR. DELUCA'S INSTRUCTIONS; NO NEED TO PLACE ANYTHING ON OSTOMY SITE. DR. DELUCA TO REPLACE G-TUBE BUT NO DATE PROVIDED WHEN.
[2021-03-29] MEDS: IV D5/ 0.9% NACL 1,000 ML IV PRN (14:15)
[2021-03-29 16:04] VITALS: BP 104/69
[2021-03-29] MEDS: VANCOMYCIN HCL 0.75 GM in IV D5W 250 ML IV SCH (16:55)
--- NOTE | 2021-03-29 18:25 | NUR ---
RT Pt received trached on mechanical ventilation with noted settings. Vent is plugged into red outlet with BVM and spare trach by bedside. No SOB or respiratory distress noted. Addendum: 03/29/21 at 1825 by CAITLIN ORONA RT Amended: Links added.
--- NOTE | 2021-03-29 18:28 | NUR ---
BILINGUAL TEACHER CLOSING NOTES PATIENT RESTING IN BED, OBTUNDED, OPEN EYES, NON-VERBAL. CURRENTLY ON TRACH/VENT WITH SETTINGS: AC 14, VT 450, FIO2 40%, PEEP 5. NO RESPIRATORY DISTRESS NOTED. ON TELE MONITOR, READING OF SINUS TACHYCARDIA, RATE IN 110-120S, NO CARDIAC DISTRESS. G-TUBE REMOVED. SITE COVERED WITH GAUZE. MK MIDLINE PATENT AND INTACT. GONCALVES CATHETER IN PLACE DRAINING YELLOW-COLORED URINE. ALL NEEDS MET. SAFETY MEASURES IN PLACE: BED IN LOWEST, LOCKED POSITION, BRAKES ON, WITH SIDERAILS X2 UP. WILL ENDORSE TO ONCOMING SHIFT.
--- NOTE | 2021-03-29 19:20 | NUR ---
RN NOTE RECEIVED PATIENT IN BED RESTING OBTUNDED,OPEN EYES,ON MECHANICAL VENT SETTING AC 14 TV:450 FIO2:40% PEEP 5 O2:100% IV SITE IS ON RIGHT UPPER ARM MIDLINE AND LEFT AC INTACT PATENT ON IV HYDRATION D5NS 70CC/HR,NPO GONCALVES CATHETER IN PLACE URINE DRAINING YELLOW AND CLEAR,SAFETY MEASURE IMPLEMENT HEAD OF THE BED ELEVATED,BED IN LOW POSITION AND LOCKED CONTINUE TO MONITOR.
[2021-03-29 20:00] VITALS: BP 132/56
[2021-03-29 20:04] VITALS: BP 132/56
[2021-03-29] MEDS: LATANOPROST EYE DROP 0.005% 2.5 ML BOTTLE EACHEYE SCH (22:15)
[2021-03-30] VITALS (8 sets, daily range): BP systolic 92–114; BP diastolic 54–70
[2021-03-30] MEDS: ALBUTEROL FS 2.5 MG/0.5 ML VIAL.NEB NEB SCH ×4 (04:02→20:15)
[2021-03-30] MEDS: IPRATROPIUM NEB FS 0.5 MG/2.5 ML AMPUL.NEB NEB SCH ×4 (04:02→20:15)
[2021-03-30] MEDS: IV D5/ 0.9% NACL 1,000 ML IV PRN (05:22)
[2021-03-30 06:27] LABS: BASOPHILS # (AUTO) 0.1 K/uL (0.0-0.2); BASOPHILS % (AUTO) 0.7 % (0.0-2.0); EOSINOPHILS % (AUTO) 2.5 % (0.0-6.0); HEMATOCRIT 28 % (39-51); HEMOGLOBIN 9.1 g/dL (13.5-17.5); LYMPHOCYTES # (AUTO) 1.5 K/uL (0.8-4.8); LYMPHOCYTES % (AUTO) 13.1 % (20.0-44.0); MEAN CORPUSCULAR HGB CONC 32 g/dl (31.0-36.0); MEAN CORPUSCULAR VOLUME 92 fL (80-96); MONOCYTES # (AUTO) 0.8 K/uL (0.1-1.30); MONOCYTES % (AUTO) 7.5 % (2.0-12.0); NEUTROPHILS # (AUTO) 8.5 K/uL (1.8-8.9); NEUTROPHILS % (AUTO) 76.2 % (43.0-81.0); PLATELET COUNT (AUTO) 421 K/uL (150-450); RED BLOOD CELL COUNT(AUTO) 3.07 MIL/uL (4.5-6.0); WHITE BLOOD COUNT (AUTO) 11.2 K/uL (4.3-11.0)
[2021-03-30 06:42] LABS: CALCIUM, SERUM 8.9 mg/dL (8.5-10.1); CREATININE 0.8 mg/dL (0.6-1.3); MAGNESIUM 2.4 mg/dL (1.8-2.4); PHOSPHORUS 3.7 mg/dL (2.5-4.9); POTASSIUM 3.6 mmol/L (3.5-5.1)
--- NOTE | 2021-03-30 06:51 | NUR ---
RN NOTE PATIENT REMAINS ON OBTUNDED ON MECHANICAL VENT NPO ON IV HYDRATION D5NS 70CC/HR IV SITE IS ON RIGHT UPPER ARM AND LEFT AC INTACT PATENT NO SOB NOT ACUTE DISTRESS NOTED,ALL IV MEDS GIVEN MD ORDERED KEPT CLEAN AND DRY ALL THE TIME,REPOSITIONED EVERY 2 HOURS,HEAD OF THE BED ELEVATED ALL NEEDS MET ENDORSE NEXT COMING SHIFT FOR CONTINUATION OF CARE.
[2021-03-30] MEDS: MEROPENEM 500 MG in IV NS 0.9% 50 ML IV SCH ×3 (07:21→22:12)
--- NOTE | 2021-03-30 07:40 | NUR ---
INSULATION WORKER OPENING NOTES RECEIVED PATIENT IN BED, OBTUNDED ON VENT SETTINGS. PATIENT TOLERATING VENT SETTINGS WELL AT THIS TIME. TELE MONITOR WITH A CURRENT READING OF ST 115. NO S/S OF PAIN SUCH FACIAL GRIMACING, MOANING OR GUARDING NOTED. GONCALVES CATH IN PLACE DRAINING YELLOW URINE. IV ACCESS ON LAC G # 18 AND HAWA MIDLINE RUNNING D%NS @ 70MLS/HR. PATIENT HAS HIS G-TUBE REMOVED AND IS NPO AT THIS TIME. SAFETY PRECAUTIONS IN PLACE; BED IN LOW POSITION AND LOCKED, RAILS UP X2, CALL LIGHT WITHIN REACH. WILL CONTINUE TO MONITOR PATIENT.
[2021-03-30] MEDS: FOLIC ACID 1 MG TABLET GT SCH (08:01)
[2021-03-30] MEDS: DOCUSATE SODIUM LIQ 100 MG/10 ML UDC GT SCH ×2 (08:01→16:13)
[2021-03-30] MEDS: LORATADINE 10 MG TABLET GT SCH (08:01)
[2021-03-30] MEDS: FERROUS SULFATE UDC 300 MG/5 ML UDC GT SCH ×2 (08:01→16:13)
[2021-03-30] MEDS: PANTOPRAZOLE 40 MG/PACK PACK GT SCH (08:02)
[2021-03-30] MEDS: PROSOURCE / PROSTAT (PYXIS) 30 ML UDC GT SCH ×4 (08:02→21:00)
[2021-03-30] MEDS: MULTIVIT W/MINERALS 1 TAB TABLET PO SCH (08:02)
[2021-03-30] MEDS: TIMOLOL 0.5% SOLN OPHTH 5 ML BOTTLE EACHEYE SCH ×2 (08:24→16:20)
[2021-03-30] MEDS ORDERED: PANTOPRAZOLE 40 MG/PACK PACK GT SCH (10:30)
[2021-03-30] MEDS: PANTOPRAZOLE 40 MG VIAL IV SCH ×2 (11:10→21:17)
--- NOTE | 2021-03-30 18:57 | NUR ---
ZIPPER REPAIRER CLOSING NOTES PATIENT REMAINS IN BED, OBTUNDED ON VENT SETTINGS. PATIENT TOLERATING VENT SETTINGS WELL. TELE MONITOR WITH A CURRENT READING OF ST 100. NO S/S OF PAIN SUCH FACIAL GRIMACING, MOANING OR GUARDING NOTED. GONCALVES CATH IN PLACE DRAINING YELLOW URINE WITH DAILY OUTPUT OF 350 MLS. IV ACCESS ON LAC G # 18 AND HAWA MIDLINE RUNNING D5NS @ 70MLS/HR. PATIENT HAS HIS G-TUBE REMOVED AND IS NPO AT THIS TIME. ALL NEEDS ATTENDED DURING THE DAY. SAFETY PRECAUTIONS IN PLACE; BED IN LOW POSITION AND LOCKED, RAILS UP X2, CALL LIGHT WITHIN REACH. WILL ENDORSE TO LOAN SUPERVISOR NURSE.
--- NOTE | 2021-03-30 19:30 | NUR ---
configuration analyst Opening Notes Patient was last seen awake in bed resting. Patient's obtunded and can open eyes. Patient's stable on a vent. Patient's on a tele monitor reading sinus tachycardia with a HR of 102. Patient has an IV access on his LAC gauge #18 and HAWA midline. Patient's in no acute distress at this time. Safety measures in place: Bed locked, bed alarm on, side rails up x3, and call light within reach of the patient. Will continue to monitor the patient.
[2021-03-30] MEDS: LATANOPROST EYE DROP 0.005% 2.5 ML BOTTLE EACHEYE SCH (21:13)
--- NOTE | 2021-03-30 21:14 | NUR ---
livestock haulier Notes Patient was not given his scheduled 2100 medication due to no G-tube & NPO diagnosis.
[2021-03-30] MEDS: IV D5W 1,000 ML IV PRN (22:20)
[2021-03-31] VITALS (7 sets, daily range): BP systolic 110–129; BP diastolic 59–76
[2021-03-31] MEDS: IPRATROPIUM NEB FS 0.5 MG/2.5 ML AMPUL.NEB NEB SCH ×4 (01:45→19:47)
[2021-03-31] MEDS: ALBUTEROL FS 2.5 MG/0.5 ML VIAL.NEB NEB SCH ×4 (01:45→19:47)
[2021-03-31 06:23] LABS: BASOPHILS % (AUTO) 0.4 % (0.0-2.0); EOSINOPHILS % (AUTO) 1.3 % (0.0-6.0); HEMATOCRIT 30 % (39-51); HEMOGLOBIN 9.6 g/dL (13.5-17.5); LYMPHOCYTES # (AUTO) 1.5 K/uL (0.8-4.8); LYMPHOCYTES % (AUTO) 12.7 % (20.0-44.0); MEAN CORPUSCULAR HGB CONC 32 g/dl (31.0-36.0); MEAN CORPUSCULAR VOLUME 94 fL (80-96); MONOCYTES # (AUTO) 0.7 K/uL (0.1-1.30); MONOCYTES % (AUTO) 6.1 % (2.0-12.0); NEUTROPHILS # (AUTO) 9.2 K/uL (1.8-8.9); NEUTROPHILS % (AUTO) 79.5 % (43.0-81.0); PLATELET COUNT (AUTO) 368 K/uL (150-450); WHITE BLOOD COUNT (AUTO) 11.6 K/uL (4.3-11.0)
[2021-03-31 06:42] LABS: CALCIUM, SERUM 8.9 mg/dL (8.5-10.1); CREATININE 0.8 mg/dL (0.6-1.3); POTASSIUM 3.6 mmol/L (3.5-5.1)
[2021-03-31] MEDS: MEROPENEM 500 MG in IV NS 0.9% 50 ML IV SCH ×3 (07:32→22:30)
[2021-03-31] MEDS: FERROUS SULFATE UDC 300 MG/5 ML UDC GT SCH ×2 (09:19→16:23)
[2021-03-31] MEDS: PANTOPRAZOLE 40 MG VIAL IV SCH ×2 (09:19→20:54)
[2021-03-31] MEDS: PROSOURCE / PROSTAT (PYXIS) 30 ML UDC GT SCH ×4 (09:19→20:56)
[2021-03-31] MEDS: LORATADINE 10 MG TABLET GT SCH (09:19)
[2021-03-31] MEDS: FOLIC ACID 1 MG TABLET GT SCH (09:19)
[2021-03-31] MEDS: MULTIVIT W/MINERALS 1 TAB TABLET PO SCH (09:19)
[2021-03-31] MEDS: TIMOLOL 0.5% SOLN OPHTH 5 ML BOTTLE EACHEYE SCH ×2 (09:19→16:23)
[2021-03-31] MEDS: DOCUSATE SODIUM LIQ 100 MG/10 ML UDC GT SCH ×2 (09:19→16:23)
[2021-03-31] MEDS ORDERED: ANESTHESIA TRAY IN PYXIS 1 EA TRAY MC ONE (13:02)
[2021-03-31] MEDS ORDERED: JEVITY 1.2 CAL 1,000 ML BOTTLE GT PRN (16:00)
[2021-03-31] MEDS: VANCOMYCIN HCL 0.75 GM in IV D5W 250 ML IV SCH (16:25)
--- NOTE | 2021-03-31 19:45 | NUR ---
GEAR GRINDER NOTES RECEIVED ON BED OBTUNDED,NON VERBAL,ON TRACH TO VENT AC-14,TV-450,FIO1-40%,PEEP-5,TOLERATED WELL.WITH MK MIDLINE,IVF INFUSING AT 70MKL/HR RATE VIA IV PUMP.SALINE LOCK LEFT INTACT AND PATENT.WITH GONCALVES CATH IN PLACE DRAINING TEA COLORED URINE.CONTRACTED ON BOTH HANDS..REPOSITION Q 2 HOURS PER PROTOCOL.WITH GT FEEDING OF JEVITY AT 55ML/HR RATE,TOLERATED WELL,NO RESIDUAL VOLUME NOTED,NO LOOSE BM NOTED.WILL CONTINUE TO MONITOR.
[2021-03-31] MEDS: ACETAMINOPHEN 325 MG TABLET PO PRN (20:54)
--- NOTE | 2021-03-31 22:00 | NUR ---
TRACTOR TRAILER TECHNICIAN NOTES ST-118 ON TELE MONITOR.
[2021-03-31] MEDS: LATANOPROST EYE DROP 0.005% 2.5 ML BOTTLE EACHEYE SCH (22:32)
[2021-04-01] VITALS: BP 113/68
[2021-04-01] MEDS: ALBUTEROL FS 2.5 MG/0.5 ML VIAL.NEB NEB SCH ×3 (01:47→13:41)
[2021-04-01] MEDS: IPRATROPIUM NEB FS 0.5 MG/2.5 ML AMPUL.NEB NEB SCH ×3 (01:47→13:41)
[2021-04-01 04:00] VITALS: BP 100/65
[2021-04-01] MEDS: MEROPENEM 500 MG in IV NS 0.9% 50 ML IV SCH ×2 (06:13→14:01)
--- NOTE | 2021-04-01 06:25 | NUR ---
FAT PRESSROOM WORKER NOTES LATEST TEMP 99.5.STILL WITH EPISODE OF TACHYCARDIA.REPOSITION PER PROTOCOL.DRESSING CHANGE DONE TO RIGHT BUTTOCKS.GONCALVES IN PACE DRAINS ADEQUATE OUTPUT.IV ABX TOLERATED WELL.IN NO ACUTE DISTRESS.FOR D/C PLANNING BACK TO SUB ACUTE.
[2021-04-01 06:41] LABS: CALCIUM, SERUM 8.6 mg/dL (8.5-10.1); CREATININE 0.9 mg/dL (0.6-1.3); POTASSIUM 3.4 mmol/L (3.5-5.1)
[2021-04-01] MEDS: IV D5W 1,000 ML IV PRN (06:53)
--- NOTE | 2021-04-01 07:36 | NUR ---
RN MS NOTES Patient seen comfortably lying in bed, no grimacing noted, breathing even and unlabored, no shortness of breath, no apparent distress noted. Kumar catheter draining clear. yellowish output, no sedimentations noted at this time. All needs anticipated, will monitor closely for any changes.
[2021-04-01 08:00] VITALS: BP 103/67
[2021-04-01] MEDS: TIMOLOL 0.5% SOLN OPHTH 5 ML BOTTLE EACHEYE SCH (08:29)
[2021-04-01] MEDS: LORATADINE 10 MG TABLET GT SCH (08:30)
[2021-04-01] MEDS: MULTIVIT W/MINERALS 1 TAB TABLET PO SCH (08:30)
[2021-04-01] MEDS: DOCUSATE SODIUM LIQ 100 MG/10 ML UDC GT SCH (08:30)
[2021-04-01] MEDS: FERROUS SULFATE UDC 300 MG/5 ML UDC GT SCH (08:30)
[2021-04-01] MEDS: PROSOURCE / PROSTAT (PYXIS) 30 ML UDC GT SCH ×2 (08:30→12:49)
[2021-04-01] MEDS: PANTOPRAZOLE 40 MG VIAL IV SCH (08:30)
[2021-04-01] MEDS: FOLIC ACID 1 MG TABLET GT SCH (08:30)
[2021-04-01] MEDS ORDERED: POTASSIUM CHLORIDE 20 MEQ POWDER PACKET GT SCH (09:30)
[2021-04-01] MEDS ORDERED: MERO500V23 IV (10:05)
--- NOTE | 2021-04-01 15:00 | NUR ---
COFFEE MACHINE TECHNICIAN NOTES PT IN BED, NO SIGN OF PAIN OR DISTRESS, NON VERBAL, SEEN BY DR. LAIRD, DISCHARGE ORDER GIVEN, WOUND TREAMTMENTS AND DRESSING CHANGE DONE, DISCHARGE AND MEDICATION INSTRUCTIONS AND PATIENT REPORT PROVIDED TO ADMITTING RN VANCE, TRANSPORTED PATIENT TO SUBACUTE UNIT VIA BED WITH RT IN STABLE CONDITION.
== END 2021-04-01 15:00 | DRG 207 ==
LOC: ER 10:16 → TELE 14:06
PROVIDERS: ADMIT Nurse Practitioner Acute Care; ATTEND Nurse Practitioner Acute Care
PROC: 30233N1 Transfusion of Nonautologous Red Blood Cells into Peripheral Vein, Percutaneous Approach (ICD-10-PCS; principal; 2021-03-27)
PROC: 5A1955Z Respiratory Ventilation, Greater than 96 Consecutive Hours (ICD-10-PCS; 2021-03-27)
PROC: 0D20XUZ Change Feeding Device in Upper Intestinal Tract, External Approach (ICD-10-PCS; 2021-03-31)
DX: J15.9 Unspecified bacterial pneumonia (principal); I21.A1 Myocardial infarction type 2; N17.0 Acute kidney failure with tubular necrosis; E43 Unspecified severe protein-calorie malnutrition; K94.23 Gastrostomy malfunction; E87.0 Hyperosmolality and hypernatremia; J96.11 Chronic respiratory failure with hypoxia; D68.59 Other primary thrombophilia; Z99.11 Dependence on respirator [ventilator] status; J90 Pleural effusion, not elsewhere classified; G93.49 Other encephalopathy; K29.70 Gastritis, unspecified, without bleeding; D64.9 Anemia, unspecified; I10 Essential (primary) hypertension; I25.10 Atherosclerotic heart disease of native coronary artery without angina pectoris; Z20.822 Contact with and (suspected) exposure to COVID-19; Z86.73 Personal history of transient ischemic attack (TIA), and cerebral infarction without residual deficits; K21.9 Gastro-esophageal reflux disease without esophagitis; M62.462 Contracture of muscle, left lower leg; M62.461 Contracture of muscle, right lower leg; M62.422 Contracture of muscle, left upper arm; M62.421 Contracture of muscle, right upper arm; Z79.51 Long term (current) use of inhaled steroids; Z79.82 Long term (current) use of aspirin; Z79.899 Other long term (current) drug therapy; Z85.47 Personal history of malignant neoplasm of testis; N40.0 Benign prostatic hyperplasia without lower urinary tract symptoms; G80.9 Cerebral palsy, unspecified; J84.10 Pulmonary fibrosis, unspecified; Z87.01 Personal history of pneumonia (recurrent); L89.629 Pressure ulcer of left heel, unspecified stage; L89.619 Pressure ulcer of right heel, unspecified stage; L89.899 Pressure ulcer of other site, unspecified stage; I73.9 Peripheral vascular disease, unspecified; I25.2 Old myocardial infarction; M62.562 Muscle wasting and atrophy, not elsewhere classified, left lower leg; M62.561 Muscle wasting and atrophy, not elsewhere classified, right lower leg; L89.216 Pressure-induced deep tissue damage of right hip; Z74.09 Other reduced mobility; K59.00 Constipation, unspecified; K80.20 Calculus of gallbladder without cholecystitis without obstruction; M16.0 Bilateral primary osteoarthritis of hip; M20.41 Other hammer toe(s) (acquired), right foot; M20.42 Other hammer toe(s) (acquired), left foot; N20.0 Calculus of kidney; R13.10 Dysphagia, unspecified; Y83.3 Surgical operation with formation of external stoma as the cause of abnormal reaction of the patient, or of later complication, without mention of misadventure at the time of the procedure; Y92.199 Unspecified place in other specified residential institution as the place of occurrence of the external cause
CPT/HCPCS: 31720; 36415; 43246; 70450-TC; 71045-TC; 71250-TC; 80048-TC; 80076-TC; 80202-TC; 81001; 83605-TC; 83735-TC; 84100-TC; 84484-TC; 85025-TC; 85045-TC; 85385-TC; 85610-TC; 85730-TC; 86850-TC; 87086-TC; 94002-TC; 94003-TC; 94760-TC; 94762-TC; 94799-TC; 99082-TC; A4623; A6253; A6403; C9113; C9803; G0378; J2185; J2704; J3370; J7030; J7040; J7042; J7050; J7060; J7070; P9016

== ENCOUNTER 2021-04-08 00:33 | Emergency (ER) | payer MEDICARE, OTHER ==
[~2021-04-08] VITALS: Ht 182.9 cm; Wt 83.9 kg
[~2021-04-08 00:33] MED LIST changes: +ACET-868 GT; -AMLO-213 GT; -CADE40GE2 TP; -CEFE2FRO IV; -ENOX40DI SQ; +HYDR-3972 GT; +HYDR1SOL TD; +MERO500V23 IV; -METO-295 GT; -METR500P3 IV; +MULT-447 GT; +NUTR1PAC14 GT; +PETR113O TP; +POLY15DR40 EACHEYE; -POTA20TA10 GT; +POVI30LI TP; +PRUNELAX GT; -SOD62.5V IV; -SODI3VIA16 IH; +SODI473S8 TD; -VANC1FRO2 IV; +VANC250V IV
--- NOTE | 2021-04-08 00:35 | NUR ---
PATIENT BROUGHT IN FROM SUBACUTE C/O HEMATURIA. PATIENT NOTED WITH RED URINE IN F/C BAG. PATIENT TOLERATING VENT SETTING WELL. A/O TO PAIN STIMULI. PATIENT CONNECTED TO CARDIAC AND POX MONITOR.
--- NOTE | 2021-04-08 01:00 | NUR ---
PATIENT GONCALVES CATHETER IRRIGATED WITH MINIMAL CLOTS NOTED.
--- NOTE | 2021-04-08 01:09 | NUR ---
URINE COLLECTED AND SENT TO LAB
[2021-04-08 01:17] LABS: BILIRUBIN,URINE SMALL (NEGATIVE); COLOR,URINE RED (YELLOW); LEUKOCYTE ESTERASE ,URINE SMALL (NEGATIVE); NITRITE, URINE NEGATIVE (NEGATIVE); PROTEIN,URINE >=300 mg/dl (NEGATIVE); UGLUCOSE NEGATIVE (NEGATIVE); UROBILINOGEN,URINE 0.2 EU/dL (0.2)
[2021-04-08 01:35] LABS: BACTERIA,URINE Rare /HPF (None Seen); RBC,URINE TOO NUMEROUS TO COUN /HPF (0-2); SQUAMOUS EPITHELIAL CELL,UR Rare /HPF (None Seen)
--- NOTE | 2021-04-08 02:00 | NUR ---
PATIENT RETURNED FROM CT
--- NOTE | 2021-04-08 02:20 | NUR ---
Baking Factory Worker at bedside
[2021-04-08 02:47] LABS: BASOPHILS # (AUTO) 0.1 K/uL (0.0-0.2); BASOPHILS % (AUTO) 0.9 % (0.0-2.0); HEMATOCRIT 25 % (39-51); LYMPHOCYTES # (AUTO) 1.1 K/uL (0.8-4.8); LYMPHOCYTES % (AUTO) 16.4 % (20.0-44.0); MEAN CORPUSCULAR HGB CONC 33 g/dl (31.0-36.0); MEAN CORPUSCULAR VOLUME 92 fL (80-96); MONOCYTES # (AUTO) 1.1 K/uL (0.1-1.30); MONOCYTES % (AUTO) 15.4 % (2.0-12.0); NEUTROPHILS # (AUTO) 4.4 K/uL (1.8-8.9); NEUTROPHILS % (AUTO) 63.3 % (43.0-81.0); PLATELET COUNT (AUTO) 370 K/uL (150-450); RED BLOOD CELL COUNT(AUTO) 2.67 MIL/uL (4.5-6.0); WHITE BLOOD COUNT (AUTO) 6.9 K/uL (4.3-11.0)
[2021-04-08 03:04] LABS: CALCIUM, SERUM 8.4 mg/dL (8.5-10.1); CREATININE 0.8 mg/dL (0.6-1.3); POTASSIUM 4.7 mmol/L (3.5-5.1)
[2021-04-08 03:10] LABS: BILIRUBIN,TOTAL 0.2 mg/dL (0.2-1.0); TOTAL PROTEIN, SERUM 6.4 g/dL (6.4-8.2)
[2021-04-08 03:11] LABS: ALBUMIN 1.2 g/dL (3.4-5.0)
[2021-04-08 03:26] LABS: BASOPHILS % (MANUAL) 0 % (0.0-2.0); EOSINOPHILS % (MANUAL) 2 % (0-4); LYMPHOCYTES % (MANUAL) 22 % (16-48); MONOCYTES % (MANUAL) 10 % (0-11.0); NEUTROPHILS % (MANUAL) 61 (42-76)
--- NOTE | 2021-04-08 03:38 | NUR ---
DR. VILLEDA PAGED PER ER ORDER.
--- NOTE | 2021-04-08 04:10 | NUR ---
report called to subacute vicky low. will transport pt back.
[2021-04-08] MEDS ORDERED: IV NS 0.9% 1,000 ML IV ONE (04:30)
[2021-04-08] MEDS ORDERED: ACETAMINOPHEN ES 500 MG TABLET ONE (05:15)
[2021-04-08] MEDS ORDERED: ACETAMINOPHEN 325 MG TABLET MC ONE (05:30)
--- NOTE | 2021-04-08 05:58 | NUR ---
PATIENT TRANSFERRED TO SUBACUTE. PATIENT IN NO ACUTE DISTRESS.
[2021-04-08 06:12] VITALS: BP 109/51
== END 2021-04-08 06:13 ==
LOC: ER 00:35
DX: J18.9 Pneumonia, unspecified organism (principal); R31.9 Hematuria, unspecified; D64.9 Anemia, unspecified; E87.0 Hyperosmolality and hypernatremia; I10 Essential (primary) hypertension; Z86.73 Personal history of transient ischemic attack (TIA), and cerebral infarction without residual deficits; Z93.1 Gastrostomy status; Z85.47 Personal history of malignant neoplasm of testis; Z93.0 Tracheostomy status; Z79.82 Long term (current) use of aspirin; Z79.899 Other long term (current) drug therapy
CPT/HCPCS: 36415; 74176; 80053; 81001; 83605; 85007; 85025; 87040 ×2; 87081; 87086; 87106; 96360; 99285; J7030

== ENCOUNTER 2021-07-01 02:36 | Inpatient (IN) | payer MEDICARE, OTHER ==
[~2021-07-01] VITALS: Ht 170.2 cm; Wt 83.9 kg
--- NOTE | 2021-07-01 02:36 | NUR ---
SEE DOWNTIME NOTES
--- NOTE | 2021-07-01 04:54 | NUR ---
RE PAGED PANEL
[2021-07-01] MEDS ORDERED: ALBUMIN 25% 12.5 GM/50 ML BOTTLE IV ONE (05:00)
[2021-07-01] MEDS ORDERED: ACETAMINOPHEN 650 MG/SUPP.RECT RC ONE (05:00)
[2021-07-01] MEDS ORDERED: IV NS 0.9% 1,000 ML BAG IV ONE (05:00)
[2021-07-01] MEDS ORDERED: CALCIUM CHLORIDE 1,000 MG/10 ML DISP.SYRIN IV ONE (05:00)
[2021-07-01] MEDS ORDERED: ALBUTEROL FS 2.5 MG/0.5 ML VIAL.NEB NEB ONE (05:00)
[2021-07-01] MEDS ORDERED: CEFEPIME 1 GM in IV D5W 50 ML IV ONE (05:00)
[2021-07-01] MEDS ORDERED: ASPIRIN 325 MG TABLET GT ONE (05:00)
[2021-07-01] MEDS ORDERED: VANCOMYCIN 1 GM in IV D5W 250 ML IV ONE (05:00)
[2021-07-01 05:11] LABS: CARBON DIOXIDE 30 mmol/L (21-32); CHLORIDE 107 mmol/L (98-107); POTASSIUM 5.3 mmol/L (3.5-5.1); SODIUM SERUM 143 mmol/L (136-145)
[2021-07-01 05:12] LABS: CALCIUM, SERUM 9.3 mg/dL (8.5-10.1); GLUCOSE 119 mg/dL (74-106)
[2021-07-01 05:13] LABS: CREATININE 1.6 mg/dL (0.6-1.3); UREA NITROGEN, BLOOD 114 mg/dL (7-18)
[2021-07-01 05:14] LABS: ALANINE AMINOTRANSFERASE 90 U/L (12-78); ALBUMIN 1.3 g/dL (3.4-5.0); ALKALINE PHOSPHATASE 209 U/L (46-116); ASPARTATE AMINOTRANSFERASE 107 U/L (15-37); BILIRUBIN,TOTAL 0.3 mg/dL (0.2-1.0)
[2021-07-01 05:15] LABS: TOTAL PROTEIN, SERUM 6.4 g/dL (6.4-8.2)
--- NOTE | 2021-07-01 05:20 | NUR ---
MRSA SWAB COLLECTED AND SENT TO LAB. PATIENT'S BELONGINGS LIST DONE.
--- NOTE | 2021-07-01 05:20 | NUR ---
CALLED HOUSE SUP FOR TELE PUI BED
[2021-07-01 05:29] LABS: BILIRUBIN,URINE NEGATIVE (NEGATIVE); COLOR,URINE YELLOW (YELLOW); LEUKOCYTE ESTERASE ,URINE LARGE (NEGATIVE); NITRITE, URINE POSITIVE (NEGATIVE); PH,URINE 8.5 (5.0-8.0); PROTEIN,URINE 100 mg/dl (NEGATIVE); UGLUCOSE NEGATIVE (NEGATIVE); UROBILINOGEN,URINE 0.2 EU/dL (0.2)
[2021-07-01 05:30] LABS: BACTERIA,URINE Many /HPF (None Seen); SQUAMOUS EPITHELIAL CELL,UR Few /HPF (None Seen); WBC,URINE 21-50 /HPF (0-3)
[2021-07-01 05:48] LABS: WHITE BLOOD COUNT (AUTO) 19.2 K/uL (4.3-11.0)
[2021-07-01 05:49] LABS: HEMOGLOBIN 8.1 g/dL (13.5-17.5); RED BLOOD CELL COUNT(AUTO) 2.92 MIL/uL (4.5-6.0)
[2021-07-01 05:50] LABS: HEMATOCRIT 26 % (39-51); MEAN CORPUSCULAR HGB CONC 31 g/dl (31.0-36.0); MEAN CORPUSCULAR VOLUME 88 fL (80-96); NEUTROPHILS % (AUTO) 91.2 % (43.0-81.0); PLATELET COUNT (AUTO) 267 K/uL (150-450)
[2021-07-01 05:52] LABS: BASOPHILS % (AUTO) 0.2 % (0.0-2.0); LYMPHOCYTES % (AUTO) 2.4 % (20.0-44.0); MONOCYTES % (AUTO) 6.2 % (2.0-12.0)
--- NOTE | 2021-07-01 08:59 | NUR ---
REPORT GIVEN TO SHERRI TELLEZ FOR SANDY
[2021-07-01] MEDS ORDERED: ENOX40DI SQ (09:50)
[2021-07-01] MEDS ORDERED: HYDR-4209 GT (09:50)
[2021-07-01] MEDS ORDERED: DEXT15DR6 EACHEYE (09:50)
[2021-07-01] MEDS ORDERED: BISACODYL SUPP (10 MG) 10 MG/SUPP.RECT SUPP.RECT RC PRN (11:00)
[2021-07-01] MEDS ORDERED: ALBUTEROL FS 2.5 MG/0.5 ML VIAL.NEB IH PRN (11:00)
[2021-07-01] MEDS ORDERED: IV NS 0.9% 1,000 ML IV PRN (11:00)
[2021-07-01] MEDS ORDERED: MAGNESIUM HYDROXIDE 30 ML UDC GT PRN (11:00)
[2021-07-01] MEDS ORDERED: ACETAMINOPHEN 650 MG/SUPP.RECT RC PRN (11:00)
[2021-07-01] MEDS ORDERED: IV NS 0.9% 1,000 ML IV ONE (11:00)
[2021-07-01] MEDS ORDERED: JEVITY 1.2 CAL 1,000 ML BOTTLE GT SCH (11:00)
[2021-07-01] MEDS ORDERED: IPRATROPIUM NEB FS 0.5 MG/2.5 ML AMPUL.NEB IH PRN (11:00)
[2021-07-01] MEDS ORDERED: ONDANSETRON HCL 4 MG/5 ML SOLUTION GT PRN (11:30)
[2021-07-01] MEDS: POLYVINYL ALCOHOL 15 ML BOTTLE OP SCH ×2 (13:51→16:46)
[2021-07-01] MEDS ORDERED: CEFTAZIDIME 2 G in IV D5W 100 ML IV SCH (14:30)
[2021-07-01] MEDS ORDERED: JEVITY 1.2 CAL 1,000 ML BOTTLE GT PRN (14:30)
[2021-07-01] MEDS: CEFTAZIDIME 1 G in IV D5W 50 ML IV SCH ×2 (16:10→20:59)
[2021-07-01] MEDS: DOCUSATE SODIUM LIQ 100 MG/10 ML UDC GT SCH (16:46)
[2021-07-01] MEDS: FERROUS SULFATE UDC 300 MG/5 ML UDC GT SCH (16:46)
[2021-07-01] MEDS: TIMOLOL 0.5% SOLN OPHTH 5 ML BOTTLE EACHEYE SCH (16:50)
[2021-07-01] MEDS: ARGININE/GLUTAMINE/CALCIUM BMB 1 EACH POWD.PACK GT SCH (17:00)
--- NOTE | 2021-07-01 19:05 | NUR ---
RN CLOSING NOTE. RECEIVE PATIENT FROM ED. ADMISSION DX: SEPSIS. 1000ML OF NS BOLUS WAS GIVEN. ANTIBIOTIC WAS GIVEN. PHYSICAL ASSESSMENT, INITIAL ASSESSMENT DONE, PHYSICAL HISTORY DONE. PHOTO WAS TAKEN OF ALL WOUNDS. MULTIPLE WOUNDS BILATERAL LOWER EXTREMITIES AND RIGHT HIP. ALL SAFETY MEASURE IN PLACE. BED ON LOWEST POSITION WITH HOB ELEVATED AND 3 SIDE RAIL UP. CALL LIGHT WITHIN REACH. WILL CONTINUE TO MONITOR AND GIVE REPORT TO ON COMING NURSE.
--- NOTE | 2021-07-01 19:10 | NUR ---
RN NOTES RECEIVED REPORT FROM MORNING NURSE. PATIENT IN BED OBTUNDED PATIENT WITH TRACHEOSTOMY SHILEY 7 DCT CONNECTED TO MV WITH FOLLOWING SETTINGS, AC 14, TV 450, FIO2 45, PEEP 5. WITH MIDLINE ON R UA, L AC #20 PATENT FLUSHES WELL. WITH GONCALVES CATHETER CONNECTED TO URINE BAG DRAINING DARK YELLOW URINE OUTPUT. VITAL SIGNS TAKEN AND RECORDED. WILL CONTINUE TO MONITOR THE PATIENT.
--- NOTE | 2021-07-01 20:18 | NUR ---
RT NOTE [facility] Pt shows no signs of resp distress or sob. Trach is patent and secured. Pt sx'd for thick large amt of gruber secretions. Alarms are set and audible. ambu bag and emergency spare trach at bedside. Vent plugged into red outlet. Will continue to monitor closely. Addendum: 07/01/21 at 2020 by COLLINS HANNA RT Amended: Links added.
[2021-07-01] MEDS: PROSTAT (PYXIS) 30 ML UDC GT SCH (21:00)
--- NOTE | 2021-07-01 21:00 | NUR ---
RN NOTES NOT GIVEN DUE TO MEDICATION UN AVAILABLE
[2021-07-01] MEDS: LATANOPROST EYE DROP 0.005% 2.5 ML BOTTLE EACHEYE SCH (21:48)
[2021-07-01] MEDS ORDERED: ATORVASTATIN 40 MG TABLET GT SCH (22:00)
[2021-07-02] VITALS (68 sets, daily range): BP systolic 67–126; BP diastolic 42–86
[2021-07-02] MEDS ORDERED: JEVITY 1.2 CAL 1,000 ML BOTTLE GT PRN
[2021-07-02] MEDS: POLYVINYL ALCOHOL 15 ML BOTTLE OP SCH ×5 (00:10→23:37)
--- NOTE | 2021-07-02 00:20 | NUR ---
RN NOTES RELAYED LACTID ACID OF 4.8 TO MELANY TURCIOS DNP WITH NEW ORDER TO GIVE NS 1L BOLUS X1 NOTED AND CARRIED OUT. WILL CONTINUE TO MONITOR THE PATIENT.
[2021-07-02] MEDS ORDERED: IV NS 0.9% 1,000 ML IV ONE (00:30)
[2021-07-02] MEDS: ACETAMINOPHEN 650 MG/20.3 ML UDC GT PRN (01:22)
--- NOTE | 2021-07-02 01:22 | NUR ---
RN NOTES TYLENOL 650 MG GIVEN FOR TEMP 102. COOLING MEASURES DONE. WILL CONTINUE TO MONITOR
--- NOTE | 2021-07-02 01:55 | NUR ---
0155 CLAIM AUDITOR WAS NOTIFIED OF PATIENT'S EPISODE OF HYPERVENTILATING RR IN THE 30S AND HR IN THE 130S. RT AT BEDSIDE ATTENDING TO PATIENT. SUCTIONED NEEDED. O2 SATURATION AT 95%. CLAIM AUDITOR TAM ORDERED ATIVAN 1 MG IVP ONCE FOR AGITATION.
[2021-07-02] MEDS ORDERED: LORAZEPAM INJ 2 MG/ML VIAL IV ONE (02:00)
--- NOTE | 2021-07-02 02:33 | NUR ---
RN NOTES ATIVAN 1MG IV GIVEN ORDERED, HR 130'S, RR 30'S. BP 110/60 TEMP 102.1 WILL CONTINUE TO MONITOR CLOSELY.
--- NOTE | 2021-07-02 03:00 | NUR ---
RN NOTES PATIENT VITAL SIGNS 107/65, GA 121, RR 28, TEMP 101.2. WILL CONTINUE TO MONITOR
--- NOTE | 2021-07-02 03:30 | NUR ---
RN NOTES PATIENT BP 107/60. HR 120, TEMP 101.2 WILL CONTINUE TO MONITOR
[2021-07-02] MEDS: VANCOMYCIN 1 GM in IV D5W 250 ML IV SCH (04:36)
--- NOTE | 2021-07-02 05:00 | NUR ---
RN NOTES PAGED KELLIE TURCIOS DIRECTOR HUMAN SERVICES REGARDING BLOOD PRESSURE. STILL WAITING FOR CALL BACK. PATIENT BP 87/65 TEMP 100.2 HR 109. WILL CONTINUE TO MONITOR PATIENT CLOSELY
--- NOTE | 2021-07-02 05:45 | NUR ---
RN NOTES BP 79/55, TEMP 99, HR 99 PAGED MELANY TURCIOS STILL WAITING FOR RESPONSE.
--- NOTE | 2021-07-02 06:20 | NUR ---
0620 STILL WAITING FOR PORTFOLIO ACCOUNTANT MD TO CALL BACK.
--- NOTE | 2021-07-02 06:25 | NUR ---
0625 NOTIFIED NURSING REGISTERED NURSE MIDWIFE THAT NO RESPONSE RECEIVED FROM PREASSEMBLER AND INSPECTOR MD. SHE SAID SHE WILL CALL PREASSEMBLER AND INSPECTOR.
--- NOTE | 2021-07-02 06:40 | NUR ---
0623 DR GREENE WAS NOTIFIED OF PATIENT'S CHANGE OF CONDITION, HYPOTENSIVE IN THE 70S WITH ORDER TO TRANSFER TO ICU AND TO BOLUS WITH 500 NS AND TO DC PEEP. ORDER NOTED AND CARRIED OUT.
--- NOTE | 2021-07-02 06:45 | NUR ---
0645 TRANSFERRED PATIENT TO ICU ON ACLS PROTOCOL. NO SIGNS OF DISTRESS NOTED.
--- NOTE | 2021-07-02 06:50 | NUR ---
RN NOTES REPORT GIVEN TO ICU NURSE JOSUE, ALL BELONGINGS GIVEN. ENDORSED
[2021-07-02] MEDS ORDERED: IV NS 0.9% 500 ML IV ONE ×2 (07:00→07:30)
--- NOTE | 2021-07-02 07:01 | NUR ---
ICU/RN RECIEVED PT FROM [facility]. PT HOOKED UP TO MONITOR. NEW ORDERS RECIEVED TO BOLUS PT 500ML AND DC PEEP FROM MECHANICAL VENT. WILL ENDORSE TO AM SHIFT.
--- NOTE | 2021-07-02 07:30 | NUR ---
OPENING NOTE: REPORT RECEIVED FROM JOSUE TELLEZ. PT OBTUNDED, CHRONIC VENT TRACH PATIENT. NS BOLUS INFUSED PER MD ORDERS ALTHOUGH LEFT UPPER ARM MIDLINE APPEARS TO BE LEAKING. IV SITE REMOVED. PICC NURSE IN DIFFERENT ROOM, NOTIFIED OF NEED FOR STAT PICC PLACEMENT FOR POSSIBLE PRESSORS. PT HAS GROSS 3-4+ GENERALIZED EDEMA WITH MULTIPLE WOUNDS NOTED. PICTURES TAKEN ON ADMISSION. GONCALVES CATHETER IN PLACE PT CHECKED ON HOURLY AND PRN BY NURSING STAFF.
[2021-07-02] MEDS: HYDROCODONE/APAP 5/325MG TABLET GT SCH (09:00)
[2021-07-02] MEDS: PROSTAT (PYXIS) 30 ML UDC GT SCH ×2 (09:00→17:58)
[2021-07-02] MEDS: ARGININE/GLUTAMINE/CALCIUM BMB 1 EACH POWD.PACK GT SCH (09:00)
--- NOTE | 2021-07-02 09:00 | NUR ---
LEFT UPPER ARM TRIPLE LUMEN PICC INSERTED BY PICC RN AT THIS TIME. PER PICC RN OK TO USE. CHEST XRAY PENDING.
[2021-07-02 10:06] LABS: BASOPHILS % (AUTO) 0.1 % (0.0-2.0); EOSINOPHILS % (AUTO) 1.2 % (0.0-6.0); HEMATOCRIT 27 % (39-51); HEMOGLOBIN 8.5 g/dL (13.5-17.5); LYMPHOCYTES # (AUTO) 0.5 K/uL (0.8-4.8); LYMPHOCYTES % (AUTO) 1.6 % (20.0-44.0); MEAN CORPUSCULAR HGB CONC 31 g/dl (31.0-36.0); MEAN CORPUSCULAR VOLUME 88 fL (80-96); MONOCYTES # (AUTO) 0.9 K/uL (0.1-1.30); MONOCYTES % (AUTO) 3.3 % (2.0-12.0); NEUTROPHILS # (AUTO) 26.8 K/uL (1.8-8.9); NEUTROPHILS % (AUTO) 93.8 % (43.0-81.0); PLATELET COUNT (AUTO) 239 K/uL (150-450); RED BLOOD CELL COUNT(AUTO) 3.05 MIL/uL (4.5-6.0); WHITE BLOOD COUNT (AUTO) 28.5 K/uL (4.3-11.0)
[2021-07-02] MEDS: IV NS 0.9% 250 ML IV PRN (10:11)
[2021-07-02] MEDS: BICALUTAMIDE 50 MG TABLET GT SCH (10:11)
[2021-07-02] MEDS: MULTIVIT W/MINERALS 1 TAB TABLET GT SCH (10:11)
[2021-07-02] MEDS: PYRIDOXINE HCL 50 MG TABLET GT SCH (10:11)
[2021-07-02] MEDS: BACLOFEN (10 MG) 10 MG TABLET GT SCH (10:12)
[2021-07-02] MEDS: CEFTAZIDIME 1 G in IV D5W 50 ML IV SCH ×2 (10:12→20:38)
[2021-07-02] MEDS: FOLIC ACID 1 MG TABLET GT SCH (10:12)
[2021-07-02] MEDS: FERROUS SULFATE UDC 300 MG/5 ML UDC GT SCH ×2 (10:12→17:43)
[2021-07-02] MEDS: LORATADINE 10 MG TABLET GT SCH (10:12)
[2021-07-02] MEDS: TIMOLOL 0.5% SOLN OPHTH 5 ML BOTTLE EACHEYE SCH ×2 (10:13→17:43)
[2021-07-02] MEDS: PANTOPRAZOLE 40 MG/PACK PACK GT SCH (10:13)
[2021-07-02] MEDS: HYDROCORTISONE SOD SUCCINATE 100 MG/2 ML VIAL IV SCH ×3 (10:13→20:38)
[2021-07-02] MEDS: DOCUSATE SODIUM LIQ 100 MG/10 ML UDC GT SCH ×2 (10:13→17:43)
[2021-07-02] MEDS: ENOXAPARIN SODIUM 40 MG/0.4 ML DISP.SYRIN SQ SCH (10:14)
[2021-07-02 10:24] LABS: CALCIUM, SERUM 8.9 mg/dL (8.5-10.1); CARBON DIOXIDE 23 mmol/L (21-32); CHLORIDE 107 mmol/L (98-107); GLUCOSE 108 mg/dL (74-106); MAGNESIUM 2.4 mg/dL (1.8-2.4); POTASSIUM 5.1 mmol/L (3.5-5.1); SODIUM SERUM 141 mmol/L (136-145)
[2021-07-02 10:30] LABS: IRON, SERUM 14 ug/dl (50-175); TOTAL IRON BINDING CAPACITY 129 ug/dl (250-450)
--- NOTE | 2021-07-02 11:00 | NUR ---
PT'S DEALERSHIP GENERAL MANAGER RENÉ WAS HERE VISITING PATIENT. STATED SHE TALKED TO PATIENTS SISTER MYLES AND MYLES WANTS PT TO CONTINUE TO BE A FULL CODE. RN ASKED RENÉ TO EXPLAIN TO MYLES THAT IF PT IS MADE A DNR WE WILL NOT STOP GIVING HIM MEDS AND TREAT HIM, WE JUST WOULD NOT PERFORM CPR IF HIS HEART STOPS. RENÉ STATED THAT SHE WOULD MAKE SURE MYLES IS AWARE OF THIS. SISTER MYLES PHONE NUMBER - [phone] RENÉ, DEALERSHIP GENERAL MANAGER - [phone]
[2021-07-02] MEDS: NOREPINEPHRINE 8 MG in IV NS 0.9% 242 ML IV PRN ×2 (11:04→23:10)
[2021-07-02 11:13] LABS: UREA NITROGEN, BLOOD 120 mg/dL (7-18)
[2021-07-02 12:02] LABS: FERRITIN 1205 ng/mL (8-388)
[2021-07-02] MEDS: FLUDROCORTISONE 0.1 MG TABLET GT SCH ×3 (13:53→23:36)
[2021-07-02] MEDS: DAKINS QUARTER STRENGTH (0.125%) 480 ML BOTTLE TOP SCH (16:00)
--- NOTE | 2021-07-02 16:00 | NUR ---
PER MARY ELKINS OK TO START DAKINS [employer] WITH NEXT DRESSING CHANGE FOR RIGHT HIP SINCE DRESSING WAS JUST CHANGED PRIOR TO HER ARRIVAL.
[2021-07-02] MEDS: THERAHONEY GEL 1.5 OZ TUBE TP SCH (17:43)
[2021-07-02] MEDS: NEPRO 1,000 ML BOTTLE GT PRN (17:59)
--- NOTE | 2021-07-02 18:31 | NUR ---
END OF SHIFT NOTE: LEVOPHED STARTED THIS SHIFT, CURRENTLY INFUSING AT 0.1MCG/KG/MIN PER MD ORDERS. NEW RIGHT UPPER ARM PICC LINE INSERTED, RIGHT UPPER ARM MIDLINE REMOVED D/T LEAKING. PT HAD 225ML OF URINE OUT OF GONCALVES THIS SHIFT. TUBE FEEDING CHANGED TO NEPRO AT 40ML/HR PER REQUEST FROM CLINICAL RESOURCE MANAGER. PT CHECKED ON HOURLY AND PRN BY NURSING STAFF.
--- NOTE | 2021-07-02 20:00 | NUR ---
ICU/RN: RECIEVED PT CHRONIC VENT TRACH GUERRERO #7 SETTINGS AC16 TV450 FIO2 50%. TOLERATING WELL. PT OBTUNDED. LEFT UPPER ARM PICC LINE INFUSING LEVO @ 0.1mcg. BP MANTAINED ORDERED. PT NOTED WITH GTUBE RECIEVING NEPRO @40ML/HR. NO RESIDUAL. TOLERATING WELL. PT REPOSITIONED FOR COMFORT. BED IN LOWEST LOCKED POSITION. SIDE RAILS UP x3. WILL CONTINUE TO MONITOR.
[2021-07-02] MEDS: LATANOPROST EYE DROP 0.005% 2.5 ML BOTTLE EACHEYE SCH (21:32)
[2021-07-02] MEDS: IV NS 0.9% 1,000 ML IV SCH (23:34)
[2021-07-03] VITALS (78 sets, daily range): BP systolic 89–129; BP diastolic 58–93
[2021-07-03] MEDS: HYDROCORTISONE SOD SUCCINATE 100 MG/2 ML VIAL IV SCH ×3 (05:15→20:30)
[2021-07-03] MEDS: VANCOMYCIN 1 GM in IV D5W 250 ML IV SCH (05:15)
[2021-07-03] MEDS: FLUDROCORTISONE 0.1 MG TABLET GT SCH ×4 (05:15→23:26)
[2021-07-03] MEDS: POLYVINYL ALCOHOL 15 ML BOTTLE OP SCH ×4 (05:18→23:26)
[2021-07-03 05:33] LABS: EOSINOPHILS % (AUTO) 0.6 % (0.0-6.0); HEMATOCRIT 31 % (39-51); HEMOGLOBIN 9.4 g/dL (13.5-17.5); LYMPHOCYTES # (AUTO) 0.4 K/uL (0.8-4.8); LYMPHOCYTES % (AUTO) 1.6 % (20.0-44.0); MEAN CORPUSCULAR HGB CONC 31 g/dl (31.0-36.0); MEAN CORPUSCULAR VOLUME 89 fL (80-96); MONOCYTES # (AUTO) 0.7 K/uL (0.1-1.30); MONOCYTES % (AUTO) 2.5 % (2.0-12.0); NEUTROPHILS # (AUTO) 25.8 K/uL (1.8-8.9); NEUTROPHILS % (AUTO) 95.3 % (43.0-81.0); PLATELET COUNT (AUTO) 239 K/uL (150-450); RED BLOOD CELL COUNT(AUTO) 3.47 MIL/uL (4.5-6.0); WHITE BLOOD COUNT (AUTO) 27.1 K/uL (4.3-11.0)
[2021-07-03 05:43] LABS: CALCIUM, SERUM 9.2 mg/dL (8.5-10.1); CARBON DIOXIDE 23 mmol/L (21-32); CHLORIDE 108 mmol/L (98-107); CREATININE 2.1 mg/dL (0.6-1.3); GLUCOSE 221 mg/dL (74-106); MAGNESIUM 2.7 mg/dL (1.8-2.4); PHOSPHORUS 4.1 mg/dL (2.5-4.9); POTASSIUM 4.8 mmol/L (3.5-5.1); SODIUM SERUM 141 mmol/L (136-145)
[2021-07-03 05:50] LABS: UREA NITROGEN, BLOOD 124 mg/dL (7-18)
[2021-07-03] MEDS: BICALUTAMIDE 50 MG TABLET GT SCH (08:37)
[2021-07-03] MEDS: TIMOLOL 0.5% SOLN OPHTH 5 ML BOTTLE EACHEYE SCH ×2 (08:37→17:34)
[2021-07-03] MEDS: PYRIDOXINE HCL 50 MG TABLET GT SCH (08:38)
[2021-07-03] MEDS: LORATADINE 10 MG TABLET GT SCH (08:38)
[2021-07-03] MEDS: BACLOFEN (10 MG) 10 MG TABLET GT SCH (08:38)
[2021-07-03] MEDS: FOLIC ACID 1 MG TABLET GT SCH (08:38)
[2021-07-03] MEDS: MULTIVIT W/MINERALS 1 TAB TABLET GT SCH (08:38)
[2021-07-03] MEDS: DOCUSATE SODIUM LIQ 100 MG/10 ML UDC GT SCH ×2 (08:39→17:24)
[2021-07-03] MEDS: FERROUS SULFATE UDC 300 MG/5 ML UDC GT SCH ×2 (08:39→17:24)
[2021-07-03] MEDS: PANTOPRAZOLE 40 MG/PACK PACK GT SCH (08:39)
[2021-07-03] MEDS: CEFTAZIDIME 1 G in IV D5W 50 ML IV SCH ×2 (08:40→20:30)
[2021-07-03] MEDS: HYDROCODONE/APAP 5/325MG TABLET GT SCH (08:40)
[2021-07-03] MEDS: ENOXAPARIN SODIUM 40 MG/0.4 ML DISP.SYRIN SQ SCH (08:41)
[2021-07-03] MEDS: THERAHONEY GEL 1.5 OZ TUBE TP SCH (08:42)
[2021-07-03] MEDS: DAKINS QUARTER STRENGTH (0.125%) 480 ML BOTTLE TOP SCH (08:42)
[2021-07-03] MEDS ORDERED: PRUNELAX GT SCH (09:00)
[2021-07-03] MEDS: PROSTAT (PYXIS) 30 ML UDC GT SCH (09:26)
[2021-07-03] MEDS: IV NS 0.9% 1,000 ML IV SCH (11:31)
--- NOTE | 2021-07-03 12:15 | NUR ---
RN NOTES RECIEVED PT ON BED ,OBTUNDED ,TRACH VENT DEPENDENT, TOLERATING VENT SETTING WELL, LEFT UPPER ARM PICC LINE SITE CLEAN,DRY AND INTACT, LEVO @ 0.08 mcg /KG/MIN RUNNING FOR BP SUPPORT, NEPRO AT @40ML/HR RUNNING VIA GT , NO RESIDUAL NOTED, BED IN LOWEST LOCKED POSITION. SIDE RAILS UP x3. WILL CONTINUE TO MONITOR.
[2021-07-03] MEDS: PROSOURCE / PROSTAT (PYXIS) 30 ML UDC GT SCH ×2 (12:34→17:24)
[2021-07-03] MEDS: NOREPINEPHRINE 8 MG in IV NS 0.9% 242 ML IV PRN (12:43)
[2021-07-03] MEDS: NEPRO 1,000 ML BOTTLE GT PRN (17:24)
--- NOTE | 2021-07-03 17:30 | NUR ---
RN NOTES LEVO DRIP OFF AT THIS TIME, CONTINUE TO MONITOR VSS .
--- NOTE | 2021-07-03 18:00 | NUR ---
RN NOTES PT TOLERAING FIO2 AT 40%, OFF LEVO DRIP, TF AT 40 CC/HR RUNNING , NO RESIDUAL NOTED, WILL ENDORSE TO PRESSFITTER NURSE FOR CONTINUITY OF CARE.
--- NOTE | 2021-07-03 19:30 | NUR ---
ICU NOTES Received patient obtunded with trach to vent on full vent support.SR per tele monitoring. On CVP monitoring.Patient with generalized edema.IVF held per MD.GT feeding in progress well tolerated no residual noted.Aspiration precaution maintained HOB elevated.FC to gravity. Turned and repositioned.No acute distress noted.
--- NOTE | 2021-07-03 20:00 | NUR ---
RCVD PT TRACHED WITH SHILEY 8 ON VENT WITH THE SETTINGS OF AC 14, VT 450, FIO2 40%. SUCTIONED MODERATE AMOUNT OF COLES THICK SECRETIONS. TRACH IS PATENT AND SECURED. ASSISTANT SOFTBALL COACH DONE . VENT PLUGGED INTO RED OUTLET. VENT ALARMS ON AND AUDIBLE. WILL CONTINUE TO MONITOR T/O SHIFT.
--- NOTE | 2021-07-03 20:05 | NUR ---
ICU NOTES Sputum for C/S collected and sent to lab.
[2021-07-03] MEDS: LATANOPROST EYE DROP 0.005% 2.5 ML BOTTLE EACHEYE SCH (21:59)
[2021-07-03] MEDS ORDERED: IV NS 0.9% 500 ML IV ONE (23:00)
[2021-07-04] VITALS (25 sets, daily range): BP systolic 93–122; BP diastolic 54–78
[2021-07-04] MEDS: IV NS 0.9% 250 ML IV PRN (03:58)
[2021-07-04 04:55] LABS: HEMATOCRIT 27 % (39-51); HEMOGLOBIN 8.4 g/dL (13.5-17.5); LYMPHOCYTES # (AUTO) 0.4 K/uL (0.8-4.8); LYMPHOCYTES % (AUTO) 1.6 % (20.0-44.0); MEAN CORPUSCULAR HGB CONC 31 g/dl (31.0-36.0); MEAN CORPUSCULAR VOLUME 88 fL (80-96); MONOCYTES # (AUTO) 0.8 K/uL (0.1-1.30); MONOCYTES % (AUTO) 3.1 % (2.0-12.0); NEUTROPHILS # (AUTO) 24.1 K/uL (1.8-8.9); NEUTROPHILS % (AUTO) 95.3 % (43.0-81.0); PLATELET COUNT (AUTO) 166 K/uL (150-450); RED BLOOD CELL COUNT(AUTO) 3.13 MIL/uL (4.5-6.0); WHITE BLOOD COUNT (AUTO) 25.3 K/uL (4.3-11.0)
[2021-07-04] MEDS: VANCOMYCIN 1 GM in IV D5W 250 ML IV SCH (05:00)
--- NOTE | 2021-07-04 05:00 | NUR ---
ICU NOTES Vancomycin IVPB non administered per protocol.D/T Vanco level 29.
[2021-07-04 05:05] LABS: ALANINE AMINOTRANSFERASE 56 U/L (12-78); ALKALINE PHOSPHATASE 219 U/L (46-116); ASPARTATE AMINOTRANSFERASE 38 U/L (15-37); BILIRUBIN,TOTAL 0.3 mg/dL (0.2-1.0); CARBON DIOXIDE 24 mmol/L (21-32); CHLORIDE 110 mmol/L (98-107); CREATININE 1.9 mg/dL (0.6-1.3); GLUCOSE 159 mg/dL (74-106); MAGNESIUM 2.7 mg/dL (1.8-2.4); PHOSPHORUS 3.5 mg/dL (2.5-4.9); POTASSIUM 4.2 mmol/L (3.5-5.1); SODIUM SERUM 144 mmol/L (136-145); TOTAL PROTEIN, SERUM 6.6 g/dL (6.4-8.2)
[2021-07-04 05:28] LABS: ALBUMIN 1.3 g/dL (3.4-5.0); UREA NITROGEN, BLOOD 126 mg/dL (7-18)
[2021-07-04] MEDS: HYDROCORTISONE SOD SUCCINATE 100 MG/2 ML VIAL IV SCH ×3 (05:44→21:06)
[2021-07-04] MEDS: POLYVINYL ALCOHOL 15 ML BOTTLE OP SCH ×4 (05:46→23:25)
[2021-07-04] MEDS: FLUDROCORTISONE 0.1 MG TABLET GT SCH ×4 (05:46→23:26)
--- NOTE | 2021-07-04 06:15 | NUR ---
ICU NOTES Patient resting in no acute distress.VSS remains stable.SR.Tolerating vent settings. GT feeding well tolerated..No residual noted.No vomiting noted.AM care done.Secretions suction PRN and oral care done.Patient turned and repositioned Q 2 HRS.off loading pressure points.AM Labs resulted Albumin 1.3,BUN 126 called to Nilay Calderón NP no orders received will wait for Manager Mall this morning.Will endorse to day shift for SANDY.
--- NOTE | 2021-07-04 07:13 | NUR ---
RN NOTES RECIEVED PT ON BED ,OBTUNDED ,TRACH VENT DEPENDENT, TRACH SUCTIONING DONE, THICK YELLOW SECRETION NOTED , TOLERATING VENT SETTING WELL, LEFT UPPER ARM PICC LINE SITE CLEAN,DRY AND INTACT, NEPRO AT @40ML/HR RUNNING VIA GT , NO RESIDUAL NOTED, BED IN LOWEST LOCKED POSITION. SIDE RAILS UP x3. WILL CONTINUE TO MONITOR.
[2021-07-04] MEDS: FERROUS SULFATE UDC 300 MG/5 ML UDC GT SCH ×2 (08:18→16:06)
[2021-07-04] MEDS: PANTOPRAZOLE 40 MG/PACK PACK GT SCH (08:18)
[2021-07-04] MEDS: LORATADINE 10 MG TABLET GT SCH (08:18)
[2021-07-04] MEDS: DOCUSATE SODIUM LIQ 100 MG/10 ML UDC GT SCH ×2 (08:18→16:06)
[2021-07-04] MEDS: PYRIDOXINE HCL 50 MG TABLET GT SCH (08:19)
[2021-07-04] MEDS: HYDROCODONE/APAP 5/325MG TABLET GT SCH (08:19)
[2021-07-04] MEDS: MULTIVIT W/MINERALS 1 TAB TABLET GT SCH (08:19)
[2021-07-04] MEDS: BACLOFEN (10 MG) 10 MG TABLET GT SCH (08:19)
[2021-07-04] MEDS: CEFTAZIDIME 1 G in IV D5W 50 ML IV SCH ×2 (08:19→21:06)
[2021-07-04] MEDS: FOLIC ACID 1 MG TABLET GT SCH (08:19)
[2021-07-04] MEDS: PROSOURCE / PROSTAT (PYXIS) 30 ML UDC GT SCH ×3 (08:20→16:07)
[2021-07-04] MEDS: BICALUTAMIDE 50 MG TABLET GT SCH (08:20)
[2021-07-04] MEDS: ENOXAPARIN SODIUM 40 MG/0.4 ML DISP.SYRIN SQ SCH (08:21)
[2021-07-04] MEDS: THERAHONEY GEL 1.5 OZ TUBE TP SCH (08:22)
[2021-07-04] MEDS: DAKINS QUARTER STRENGTH (0.125%) 480 ML BOTTLE TOP SCH (08:22)
[2021-07-04] MEDS: TIMOLOL 0.5% SOLN OPHTH 5 ML BOTTLE EACHEYE SCH ×2 (08:23→17:09)
[2021-07-04 08:40] LABS: BAND % (MANUAL) 1 % (0.0-5.0); LYMPHOCYTES % (MANUAL) 2 % (16-48); MONOCYTES % (MANUAL) 4 % (0-11.0); NEUTROPHILS % (MANUAL) 93 (42-76)
[2021-07-04] MEDS: NEPRO 1,000 ML BOTTLE GT PRN (15:55)
--- NOTE | 2021-07-04 16:30 | NUR ---
RN NOTES DR CHARLES NOTIFIED REGARDING ABG RESULTS .
--- NOTE | 2021-07-04 16:32 | NUR ---
ABG RESULTS: SETTINGS: AC 14, 450, 40% +0 PH 7.388 CO2 37.8 PO2 113.6 HCO3 22.3 BE -2.4 ABG RESULTS ARE NOT TRANSFERRING TO [facility]
[2021-07-04] MEDS ORDERED: VANCOMYCIN 0.75 GM in IV D5W 250 ML IV SCH (17:00)
--- NOTE | 2021-07-04 18:24 | NUR ---
RN NOTES NO SIGNIFICANT CHANGES NOTED ON THIS SHIT, TRACH CARE DONE, TOLERAING FIO2 AT40%, O2 SAT WNL, PT REMANINS OFF LEVO , TF AT 40CC/HR RUNNING , NO RESIDUAL NOTED, SR UP x3, BED LOCKED AND IN LOWEST POSITION, WILL ENDORSE TO REFUSE LABORER NURSE FOR CONTINUITY OF CARE .
--- NOTE | 2021-07-04 19:35 | NUR ---
RN NOTE PT RECEIVED IN BED. PT IS TRACH/VENT. TOLERATING VENT SETTINGS WELL WITH OXYGEN SATURATION AT 100%. PT IS OBTUNDED/NON-VERBAL. ON DIRECTOR PRODUCT MANAGEMENT SHOWING NSR. GONCALVES CATH NOTED. MULTIPLE WOUNDS NOTED. GT RUNNING NEPRO AT 40 ML/HR. TOLERATING WELL WITH NO RESIDUAL. IV ACCESS NOTED ON LEFT UPPER ARM PICC LINE. LINE FLUSHED, PATENT, AND INTACT WITH NO SIGNS OF INFILTRATION. ALL SAFETY MEASURES IMPLEMENTED. BED ALARM ON. BED LOCKED AND IN LOWEST POSITION. SIDE RAILS UP. WILL CONTINUE TO MONITOR AND ASSESS FOR ANY CHANGES DURING SHIFT.
[2021-07-04] MEDS: LATANOPROST EYE DROP 0.005% 2.5 ML BOTTLE EACHEYE SCH (21:06)
[2021-07-05] VITALS (25 sets, daily range): BP systolic 104–131; BP diastolic 57–92
[2021-07-05 04:54] LABS: HEMOGLOBIN 8.6 g/dL (13.5-17.5); LYMPHOCYTES # (AUTO) 0.4 K/uL (0.8-4.8); PLATELET COUNT (AUTO) 151 K/uL (150-450)
[2021-07-05 05:00] LABS: ALANINE AMINOTRANSFERASE 49 U/L (12-78); ALKALINE PHOSPHATASE 218 U/L (46-116); ASPARTATE AMINOTRANSFERASE 29 U/L (15-37); BILIRUBIN,TOTAL 0.3 mg/dL (0.2-1.0); CALCIUM, SERUM 8.7 mg/dL (8.5-10.1); CARBON DIOXIDE 26 mmol/L (21-32); CHLORIDE 111 mmol/L (98-107); CREATININE 1.6 mg/dL (0.6-1.3); GLUCOSE 162 mg/dL (74-106); MAGNESIUM 2.5 mg/dL (1.8-2.4); PHOSPHORUS 3.2 mg/dL (2.5-4.9); POTASSIUM 3.8 mmol/L (3.5-5.1); SODIUM SERUM 145 mmol/L (136-145); TOTAL PROTEIN, SERUM 6.6 g/dL (6.4-8.2)
[2021-07-05 05:01] LABS: BASOPHILS % (AUTO) 0.1 % (0.0-2.0); HEMATOCRIT 28 % (39-51); LYMPHOCYTES % (AUTO) 1.8 % (20.0-44.0); MEAN CORPUSCULAR HGB CONC 31 g/dl (31.0-36.0); MEAN CORPUSCULAR VOLUME 88 fL (80-96); MONOCYTES # (AUTO) 0.6 K/uL (0.1-1.30); MONOCYTES % (AUTO) 2.9 % (2.0-12.0); NEUTROPHILS # (AUTO) 18.1 K/uL (1.8-8.9); NEUTROPHILS % (AUTO) 95.2 % (43.0-81.0); RED BLOOD CELL COUNT(AUTO) 3.13 MIL/uL (4.5-6.0)
[2021-07-05 05:08] LABS: ALBUMIN 1.3 g/dL (3.4-5.0); UREA NITROGEN, BLOOD 113 mg/dL (7-18)
[2021-07-05] MEDS: FLUDROCORTISONE 0.1 MG TABLET GT SCH ×3 (05:23→17:08)
[2021-07-05] MEDS: HYDROCORTISONE SOD SUCCINATE 100 MG/2 ML VIAL IV SCH (05:23)
[2021-07-05] MEDS: POLYVINYL ALCOHOL 15 ML BOTTLE OP SCH ×3 (05:58→17:09)
--- NOTE | 2021-07-05 06:48 | NUR ---
RN NOTE NO CHANGES IN PT CONDITION DURING SHIFT. PT IS TRACH/VENT. TOLERATING VENT SETTINGS WELL WITH OXYGEN SATURATION AT 100%. PT IS OBTUNDED/NON-VERBAL. ON COMPLIANCE SPECIALIST SHOWING NSR. GT RUNNING NEPRO AT 40 ML/HR. TOLERATING WELL WITH NO RESIDUAL NOTED. IV ACCESS NOTED ON LEFT UPPER ARM PICC LINE. LINE FLUSHED, PATENT, AND INTACT WITH NO SIGNS OF INFILTRATION. ALL DUE MEDS GIVEN ORDERED. PT KEPT CLEAN AND COMFORTABLE. ALL SAFETY MEASURES IMPLEMENTED. BED ALARM ON. BED LOCKED AND IN LOWEST POSITION. SIDE RAILS UP. WILL ENDORSE TO MORNING SHIFT RN FOR SANDY.
[2021-07-05] MEDS: ENOXAPARIN SODIUM 40 MG/0.4 ML DISP.SYRIN SQ SCH (08:18)
[2021-07-05] MEDS: FOLIC ACID 1 MG TABLET GT SCH (08:19)
[2021-07-05] MEDS: BACLOFEN (10 MG) 10 MG TABLET GT SCH (08:19)
[2021-07-05] MEDS: MULTIVIT W/MINERALS 1 TAB TABLET GT SCH (08:19)
[2021-07-05] MEDS: PYRIDOXINE HCL 50 MG TABLET GT SCH (08:19)
[2021-07-05] MEDS: FERROUS SULFATE UDC 300 MG/5 ML UDC GT SCH ×2 (08:19→17:08)
[2021-07-05] MEDS: PANTOPRAZOLE 40 MG/PACK PACK GT SCH (08:19)
[2021-07-05] MEDS: LORATADINE 10 MG TABLET GT SCH (08:19)
[2021-07-05] MEDS: BICALUTAMIDE 50 MG TABLET GT SCH (08:19)
[2021-07-05] MEDS: HYDROCODONE/APAP 5/325MG TABLET GT SCH (08:20)
[2021-07-05] MEDS: DOCUSATE SODIUM LIQ 100 MG/10 ML UDC GT SCH ×2 (08:20→17:08)
[2021-07-05] MEDS: CEFTAZIDIME 1 G in IV D5W 50 ML IV SCH ×2 (08:21→21:18)
[2021-07-05] MEDS: PROSOURCE / PROSTAT (PYXIS) 30 ML UDC GT SCH ×3 (08:22→17:08)
[2021-07-05] MEDS: TIMOLOL 0.5% SOLN OPHTH 5 ML BOTTLE EACHEYE SCH ×2 (08:23→17:10)
[2021-07-05] MEDS: DAKINS QUARTER STRENGTH (0.125%) 480 ML BOTTLE TOP SCH (08:25)
[2021-07-05] MEDS: THERAHONEY GEL 1.5 OZ TUBE TP SCH (08:25)
--- NOTE | 2021-07-05 09:02 | NUR ---
WOUND CARE CONSULT: PT FOLLOWED BY PLASTIC SURGERY AND PODIATRY TEAMS FOR MULTIPLE WOUNDS, PRESENT ON ADMISSION. DR SHABAZZ NOTIFIED OF PT ROOM NUMBER IN ICU. RECOMMENDATIONS MADE FOR SKIN PROTECTION. DISCUSSED WITH NURSING STAFF. PT IS ON FIRST STEP LOW AIRLOSS MATTRESS. MD IN AGREEMENT WITH PLAN OF CARE.
[2021-07-05] MEDS ORDERED: LIDOCAINE 1%-EPI 1:100,000 20 ML VIAL IJ ONE (10:00)
[2021-07-05] MEDS ORDERED: LIDOCAINE 1%-EPI 1:100,000 50 ML VIAL IJ ONE (10:00)
[2021-07-05] MEDS ORDERED: SILVER NITRATE APPLICATOR 1 EA BOX TP SCH (10:00)
[2021-07-05] MEDS: Z GUARD REMEDY 2 OZ OINT TP SCH (10:53)
[2021-07-05] MEDS ORDERED: BUMETANIDE INJ 6 MG in IV D5W 36 ML IV ONE (11:00)
--- NOTE | 2021-07-05 12:00 | NUR ---
RN NOTES PT HAS LARGE AMOUNT OF THICK WHITISH TRACH SECRETION . DR GREENE NOTIFIED.
[2021-07-05] MEDS: ALBUMIN 25% 25 GM in PREMIX 1 EA IV SCH ×2 (12:38→17:09)
[2021-07-05] MEDS: NEPRO 1,000 ML BOTTLE GT PRN (17:10)
--- NOTE | 2021-07-05 18:34 | NUR ---
RN NOTE NO SIGNIFCANT CHANGES NOTED ON THIS SHIFT, PT IS TRACH/VENT. TOLERATING VENT SETTINGS WELL, O2 SAT WNL, TF AT 40CC /HR RUNNING , NO RESIDUAL NOTED, PT KEPT CLEAN AND COMFORTABLE. ALL SAFETY MEASURES IMPLEMENTED. BED ALARM ON. BED LOCKED AND IN LOWEST POSITION. SIDE RAILS UP. WILL ENDORSE TO FAST FOOD SHIFT SUPERVISOR NURSE FOR CONTINUITY OF CARE .
--- NOTE | 2021-07-05 19:30 | NUR ---
RN NOTE RECEIVED PATIENT IN BED, OBTUNDED. ON MECHANICAL VENT, GUERRERO #7, AC 14, TV 450 FIO2 40 PEEP 0. RESPIRATIONS ARE EVEN AND UNLABORED. SECRETIONS ARE WHITE/ COLES THICK. NO S/S PAIN NOTED. NO DISTRESS. TELE MONITOR READS SINUS TACHYCARDIA WITH PVC AND BBB. IV ACCESS IN HAWA PICC LINE RUNNING TKO. CVP MONITOR PRESENT, DAMPEND, 15-16. GTUBE PRESENT NO RESIDUAL, FLUSHED WITH NO RESISTANCE, RUNNING NEPRO@40ML/HR. GONCALVES CATHETER DRAINING TO GRAVITY, URINE IS YELLOW. BED IS LOW AND LOCKED, HOB ELEVATED IN SEMI FOWLERS, SIDE RIALS UP X2, CALL LIGHT WITHIN REACH.
[2021-07-05] MEDS: LATANOPROST EYE DROP 0.005% 2.5 ML BOTTLE EACHEYE SCH (21:25)
--- NOTE | 2021-07-05 23:00 | NUR ---
RN NOTE CALLED LAB TO SEE IF THEY HAVE RESULTS FOR PCR TEST, ITS BEEN 4 DAYS. STATED THEY WILL CHECK
[2021-07-06] VITALS (20 sets, daily range): BP systolic 112–154; BP diastolic 54–92
[2021-07-06] MEDS: FLUDROCORTISONE 0.1 MG TABLET GT SCH ×4 (00:27→17:44)
[2021-07-06] MEDS: POLYVINYL ALCOHOL 15 ML BOTTLE OP SCH ×4 (00:28→17:46)
[2021-07-06] MEDS: ALBUMIN 25% 25 GM in PREMIX 1 EA IV SCH ×3 (00:28→19:35)
[2021-07-06 04:31] LABS: HEMATOCRIT 25 % (39-51); HEMOGLOBIN 7.6 g/dL (13.5-17.5); LYMPHOCYTES # (AUTO) 0.4 K/uL (0.8-4.8); LYMPHOCYTES % (AUTO) 2.7 % (20.0-44.0); MEAN CORPUSCULAR HGB CONC 31 g/dl (31.0-36.0); MEAN CORPUSCULAR VOLUME 88 fL (80-96); MONOCYTES # (AUTO) 0.6 K/uL (0.1-1.30); MONOCYTES % (AUTO) 4.3 % (2.0-12.0); NEUTROPHILS # (AUTO) 13.7 K/uL (1.8-8.9); PLATELET COUNT (AUTO) 147 K/uL (150-450); RED BLOOD CELL COUNT(AUTO) 2.81 MIL/uL (4.5-6.0); WHITE BLOOD COUNT (AUTO) 14.7 K/uL (4.3-11.0)
[2021-07-06 04:38] LABS: ALANINE AMINOTRANSFERASE 38 U/L (12-78); ALBUMIN 2.6 g/dL (3.4-5.0); ALKALINE PHOSPHATASE 151 U/L (46-116); ASPARTATE AMINOTRANSFERASE 21 U/L (15-37); BILIRUBIN,TOTAL 0.4 mg/dL (0.2-1.0); CALCIUM, SERUM 8.9 mg/dL (8.5-10.1); CARBON DIOXIDE 28 mmol/L (21-32); CHLORIDE 111 mmol/L (98-107); CREATININE 1.4 mg/dL (0.6-1.3); GLUCOSE 181 mg/dL (74-106); MAGNESIUM 2.5 mg/dL (1.8-2.4); PHOSPHORUS 2.7 mg/dL (2.5-4.9); POTASSIUM 3.2 mmol/L (3.5-5.1); SODIUM SERUM 149 mmol/L (136-145); TOTAL PROTEIN, SERUM 6.9 g/dL (6.4-8.2)
[2021-07-06 05:02] LABS: UREA NITROGEN, BLOOD 105 mg/dL (7-18)
--- NOTE | 2021-07-06 06:51 | NUR ---
RN NOTE RESTING IN BED, OBTUNDED. ON MECHANICAL VENT, NO CHANGES IN SETTINGS. NO RESP DISTRESS. NO S/S PAIN. NO DISTRESS. RHYTHM IS SINUS TACHYCARDIA WITH PVC AND BBB/ SINUS RHYTHM. HAWA PICC LINE RUNNING TKO. CVP MONITOR RANGE FROM 13-19. GTUBE RUNNING NEPRO@40ML/HR. GONCALVES CATHETER OUTPUT 1300ML YELLOW. BED REMAINS LOW AND LOCKED, HOB ELEVATED IN SEMI FOWLERS, SIDE RIALS UP X2, CALL LIGHT WITHIN REACH. WOUND CARE ORDERED.
--- NOTE | 2021-07-06 07:25 | NUR ---
RN NURSE OPENING NOTE RECEIVE REPORT FROM OUT GOING NURSE. PATIENT ON TRACH VENTILATOR. NO SIGH OF DISTRESS. OBTUNDED. WILL FOLLOW UP AM LABS. WILL COLLECT OB STOOL AND RIGHT HIP AND LEFT KNEE WOUND CULTURE. ALL SAFETY MEASURE IN PLACE. BED ON LOWEST POSITION WITH HOB ELEVATED AND 3 SIDE RAIL UP. CALL LIGHT WITHIN REACH. WILL CONTINUE TO MONITOR.
[2021-07-06] MEDS: DOCUSATE SODIUM LIQ 100 MG/10 ML UDC GT SCH ×2 (08:36→17:46)
[2021-07-06] MEDS: FERROUS SULFATE UDC 300 MG/5 ML UDC GT SCH ×2 (08:36→17:44)
[2021-07-06] MEDS: PANTOPRAZOLE 40 MG/PACK PACK GT SCH (08:36)
[2021-07-06] MEDS: BACLOFEN (10 MG) 10 MG TABLET GT SCH (08:36)
[2021-07-06] MEDS: MULTIVIT W/MINERALS 1 TAB TABLET GT SCH (08:36)
[2021-07-06] MEDS: BICALUTAMIDE 50 MG TABLET GT SCH (08:37)
[2021-07-06] MEDS: LORATADINE 10 MG TABLET GT SCH (08:37)
[2021-07-06] MEDS: FOLIC ACID 1 MG TABLET GT SCH (08:37)
[2021-07-06] MEDS: PYRIDOXINE HCL 50 MG TABLET GT SCH (08:37)
[2021-07-06] MEDS: HYDROCODONE/APAP 5/325MG TABLET GT SCH (08:38)
[2021-07-06] MEDS: PROSOURCE / PROSTAT (PYXIS) 30 ML UDC GT SCH ×3 (08:44→17:44)
[2021-07-06] MEDS: CEFTAZIDIME 1 G in IV D5W 50 ML IV SCH (08:44)
[2021-07-06] MEDS: ENOXAPARIN SODIUM 40 MG/0.4 ML DISP.SYRIN SQ SCH (08:48)
[2021-07-06] MEDS: THERAHONEY GEL 1.5 OZ TUBE TP SCH (08:49)
[2021-07-06] MEDS: DAKINS QUARTER STRENGTH (0.125%) 480 ML BOTTLE TOP SCH (08:50)
[2021-07-06] MEDS: Z GUARD REMEDY 2 OZ OINT TP SCH (08:51)
[2021-07-06] MEDS: TIMOLOL 0.5% SOLN OPHTH 5 ML BOTTLE EACHEYE SCH ×2 (08:52→17:46)
[2021-07-06] MEDS ORDERED: BUMETANIDE INJ 6 MG in IV D5W 36 ML IV ONE (11:00)
[2021-07-06] MEDS: POTASSIUM CL. PREMIX PERIPHER. 50 ML IV SCH ×3 (11:36→14:01)
[2021-07-06] MEDS: CEFTRIAXONE 2 G in IV D5W 100 ML IV SCH (12:38)
--- NOTE | 2021-07-06 18:45 | NUR ---
RN CLOSING NOTE PATIENT WAS TRANSFER FROM ICU TO [facility]. PATIENT IN STABLE CONDITION AT TIME OF TRANSFER WITH NO SIGN OF DISTRESS. PATIENT RHYTHM IS SR AND ST. GONCALVES. MULTIPLE WOUNDS. WOUND TREATMENT WAS DONE AND DRESSING WAS CHANGED. ALBUMIN 25G WAS GIVEN. POTASSIUM DRIP WAS GIVEN. PATIENT REMAIN ON G-TUBE FEEDING WITH NEPRO @ 40ML/HR. WOUND CULTURE OF RIGHT HIP AND LEFT KNEE WAS COLLECTED. PATIENT VENT SETTING:AC 14, TV450, FI02 40% PEEP 0. ALL SAFETY MEASURE IN PLACE. BED ON LOWEST POSITION WITH HOB ELEVATED AND 3 SIDE RAIL UP. CALL LIGHT WITHIN REACH. WILL CONTINUE TO MONITOR AND GIVE REPORT TO ON COMING NURSE.
[2021-07-06] MEDS: NEPRO 1,000 ML BOTTLE GT PRN (19:20)
--- NOTE | 2021-07-06 20:00 | NUR ---
RN OPENING NOTES RECEIVED PATIENT IN STABLE CONDITIONS WITH NO SIGNS OF DISTRESS. PATIENT REMAINS OBTUNDED. PATIENT ON TELE MONITOR, SINUS TACH WITH OCCASIONAL PVC, HR 108. PATIENT PRESENTS WITH GENERALIZED EDEMA +3. PATIENT PRESENTS WITH MULTIPLE WOUNDS. HAWA PICC LINE REMAINS PATIENT WITH NO SIGNS OF INFILTRATION. PATIENT ON GONCALVES. PATIENT IS ON G-TUBE FEEDING WITH NEPRO @ 40ML/HR. PATIENT VENT SETTING: AC 14, TV450, FI02 40% PEEP 0. ALL SAFETY MEASURES IN PLACE. BED ON LOWEST POSITION WITH HOB ELEVATED AND 3 SIDE RAIL UP. CALL LIGHT WITHIN REACH. WILL CONTINUE TO MONITOR FOR ANY CHANGES IN HEALTH STATUS.
[2021-07-06] MEDS: LATANOPROST EYE DROP 0.005% 2.5 ML BOTTLE EACHEYE SCH (21:22)
[2021-07-07] VITALS: BP 141/75
[2021-07-07] MEDS: POLYVINYL ALCOHOL 15 ML BOTTLE OP SCH ×4 (00:55→18:00)
[2021-07-07] MEDS: FLUDROCORTISONE 0.1 MG TABLET GT SCH ×4 (00:55→17:59)
[2021-07-07] MEDS: ALBUMIN 25% 25 GM in PREMIX 1 EA IV SCH (03:16)
[2021-07-07 04:00] VITALS: BP 136/79
--- NOTE | 2021-07-07 07:01 | NUR ---
RN CLOSING NOTES WILL ENDORSE PATIENT TO DAY SHIFT NURSE IN STABLE CONDITIONS WITH NO SIGNS OF DISTRESS. PATIENT REMAINS OBTUNDED. PATIENT ON TELE MONITOR, SINUS TACH WITH OCCASIONAL PVC, BBB, HR 110. PATIENT PRESENTS WITH GENERALIZED EDEMA +3. PATIENT PRESENTS WITH MULTIPLE WOUNDS. HAWA PICC LINE REMAINS PATIENT WITH NO SIGNS OF INFILTRATION. PATIENT ON GONCALVES. PATIENT IS ON G-TUBE FEEDING WITH NEPRO @ 40ML/HR. PATIENT VENT SETTING: AC 14, TV450, FI02 40% PEEP 0. ALL SAFETY MEASURES IN PLACE. BED ON LOWEST POSITION WITH HOB ELEVATED AND 3 SIDE RAIL UP. CALL LIGHT WITHIN REACH. WILL ENDORSE TO DAY SHIFT NURSE FOR SANDY.
--- NOTE | 2021-07-07 07:40 | NUR ---
TELECOMMUNICATIONS LINE MECHANIC OPENING NOTES RECEIVED PATIENT IN STABLE CONDITIONS WITH NO SIGNS OF DISTRESS. PATIENT IS OBTUNDED BUT WILL RESPOND SLIGHTLY TO VERBAL COMMANDS. PATIENT ON TELE MONITOR, SINUS TACH WITH OCCASIONAL PVC, HR 108. PATIENT PRESENTS WITH GENERALIZED EDEMA +3. PATIENT PRESENTS WITH MULTIPLE WOUNDS ON L KNEE, R HIP, AND BILATERAL HEELS. HAWA PICC LINE REMAINS PATENT WITH NO SIGNS OF INFILTRATION. PATIENT ON GONCALVES. PATIENT ON G-TUBE FEEDING WITH NEPHRO @ 40ML/HR. PATIENT VENT SETTING: AC 14, TV450, FI02 40% PEEP 0. ALL SAFETY MEASURES IN PLACE. BED IN LOWEST LOCKED POSITION WITH HOB ELEVATED AND SIDE RAILS UP X3. CALL LIGHT WITHIN REACH. WILL CONTINUE TO MONITOR HEALTH STATUS THROUGHOUT SHIFT.
[2021-07-07 08:00] VITALS: BP 139/69
[2021-07-07 08:16] LABS: CALCIUM, SERUM 9.4 mg/dL (8.5-10.1); CREATININE 1.2 mg/dL (0.6-1.3)
[2021-07-07 08:39] LABS: POTASSIUM 2.8 mmol/L (3.5-5.1)
[2021-07-07] MEDS: DOCUSATE SODIUM LIQ 100 MG/10 ML UDC GT SCH ×2 (08:51→17:58)
[2021-07-07] MEDS: PYRIDOXINE HCL 50 MG TABLET GT SCH (08:52)
[2021-07-07] MEDS: FOLIC ACID 1 MG TABLET GT SCH (08:52)
[2021-07-07] MEDS: FERROUS SULFATE UDC 300 MG/5 ML UDC GT SCH ×2 (08:52→17:58)
[2021-07-07] MEDS: BACLOFEN (10 MG) 10 MG TABLET GT SCH (08:52)
[2021-07-07] MEDS: HYDROCODONE/APAP 5/325MG TABLET GT SCH (08:53)
[2021-07-07] MEDS: PANTOPRAZOLE 40 MG/PACK PACK GT SCH (08:53)
[2021-07-07] MEDS: MULTIVIT W/MINERALS 1 TAB TABLET GT SCH (08:53)
[2021-07-07] MEDS: LORATADINE 10 MG TABLET GT SCH (08:53)
[2021-07-07] MEDS: ENOXAPARIN SODIUM 40 MG/0.4 ML DISP.SYRIN SQ SCH (08:54)
[2021-07-07] MEDS: PROSOURCE / PROSTAT (PYXIS) 30 ML UDC GT SCH ×3 (08:59→17:58)
[2021-07-07] MEDS: BICALUTAMIDE 50 MG TABLET GT SCH (08:59)
[2021-07-07] MEDS ORDERED: POTASSIUM CHLORIDE 20 MEQ TAB.PRT.SR PO ONE (09:30)
[2021-07-07] MEDS: DAKINS QUARTER STRENGTH (0.125%) 480 ML BOTTLE TOP SCH (09:32)
[2021-07-07] MEDS: Z GUARD REMEDY 2 OZ OINT TP SCH (09:32)
[2021-07-07] MEDS: THERAHONEY GEL 1.5 OZ TUBE TP SCH (09:33)
[2021-07-07] MEDS: TIMOLOL 0.5% SOLN OPHTH 5 ML BOTTLE EACHEYE SCH ×2 (09:35→18:00)
[2021-07-07] MEDS: POTASSIUM CL. PREMIX PERIPHER. 50 ML IV SCH ×4 (09:36→12:56)
[2021-07-07] MEDS: CEFTRIAXONE 2 G in IV D5W 100 ML IV SCH (10:11)
[2021-07-07 12:00] VITALS: BP 123/77
[2021-07-07 16:00] VITALS: BP 134/86
--- NOTE | 2021-07-07 18:36 | NUR ---
DIPLOMATIC INTERPRETER/TRANSLATOR CLOSING NOTES WILL ENDORSE PATIENT TO BLANKET WASHER NURSE. PT. IN STABLE CONDITION WITH NO SIGNS OF DISTRESS. PT IS OBTUNDED. PATIENT PRESENTS WITH GENERALIZED EDEMA +3. PT PRESENTS WITH MULTIPLE WOUNDS ON L KNEE, R HIP, BOTH FEET. HAWA PICC LINE REMAINS PATENT WITH NO SIGNS OF INFILTRATION. PT ON GONCALVES. PT IS ON G-TUBE FEEDING WITH NEPRO @ 40ML/HR. PATIENT VENT SETTING: AC 14, TV450, FI02 40% PEEP 0. ALL SAFETY MEASURES RENDERED. BED IN LOWEST LOCKED POSITION WITH HOB ELEVATED AND SIDE RAILS UP X 3. CALL LIGHT WITHIN REACH.
[2021-07-07 20:00] VITALS: BP 146/84
--- NOTE | 2021-07-07 20:00 | NUR ---
RN NOTE RECEIVED PT WITH TRACH CONNECTED TO VENT. NO SIGNS OF DISTRESS NOTED. O2 SAT AT 98%. PT GT PATENT AND IN PLACE, ON NEPRO FEEDING, NO RESIDUALS NOTED. KEPT HOB ELEVATED. PT ON TELE MONITOR SHOWS SINUS TACH WITH HR OF 105 PTS BASELINE. PT GONCALVES INPLACE, DRANING CLEAR YELLOW OUTPUT. WILL CONTINUE TO MONITOR.
[2021-07-07] MEDS: LATANOPROST EYE DROP 0.005% 2.5 ML BOTTLE EACHEYE SCH (22:08)
[2021-07-08] VITALS: BP 143/86
[2021-07-08] MEDS: FLUDROCORTISONE 0.1 MG TABLET GT SCH ×5 (00:09→23:57)
[2021-07-08] MEDS: POLYVINYL ALCOHOL 15 ML BOTTLE OP SCH ×4 (00:28→17:06)
[2021-07-08 04:00] VITALS: BP 142/87
[2021-07-08] MEDS: NEPRO 1,000 ML BOTTLE GT PRN (04:12)
--- NOTE | 2021-07-08 07:12 | NUR ---
RN NURSE OPENING NOTES RECEIVED PATIENT IN BED IN SUPINE POS. PT ON TRACH VENTILATOR WITH SETTINGS ORDERED. PT IS OBTUNDED. NO SOB OR DISTRESS NOTED, EVIDENCE BY PT FACIAL EXPRESSION. PRECINCT POLICE LIEUTENANT RN REPORTED PT HAD A BOWEL MOVEMENT. ALL SAFETY MEASURE IN PLACE. BED ON LOWEST POSITION WITH HOB ELEVATED AND 3 SIDE RAIL UP. CALL LIGHT WITHIN REACH. WILL CONTINUE TO MONITOR.
--- NOTE | 2021-07-08 07:15 | NUR ---
RN NOTE PT TOLERATING VENT SETTING. NOT IN ANY DISTRESS. TOLERATES GT FEEDING NO RESIDUALS NOTED. ALL SAFETY MEASURES. TURNED AND REPOSITIONED. GONCALVES DRAINING WELL. ENDORSE TO NEXT SHIFT NURSE FOR SANDY.
[2021-07-08 08:00] VITALS: BP 138/87
[2021-07-08 08:02] LABS: CALCIUM, SERUM 8.8 mg/dL (8.5-10.1); MAGNESIUM 2.1 mg/dL (1.8-2.4); PHOSPHORUS 2.4 mg/dL (2.5-4.9); POTASSIUM 3.3 mmol/L (3.5-5.1)
[2021-07-08 08:15] LABS: EOSINOPHILS % (AUTO) 3.1 % (0.0-6.0); HEMATOCRIT 27 % (39-51); HEMOGLOBIN 8.6 g/dL (13.5-17.5); LYMPHOCYTES # (AUTO) 0.8 K/uL (0.8-4.8); MEAN CORPUSCULAR HGB CONC 31 g/dl (31.0-36.0); MEAN CORPUSCULAR VOLUME 88 fL (80-96); MONOCYTES # (AUTO) 0.4 K/uL (0.1-1.30); NEUTROPHILS # (AUTO) 7.9 K/uL (1.8-8.9); NEUTROPHILS % (AUTO) 84.9 % (43.0-81.0); PLATELET COUNT (AUTO) 151 K/uL (150-450); RED BLOOD CELL COUNT(AUTO) 3.11 MIL/uL (4.5-6.0); WHITE BLOOD COUNT (AUTO) 9.4 K/uL (4.3-11.0)
[2021-07-08] MEDS: FERROUS SULFATE UDC 300 MG/5 ML UDC GT SCH ×2 (08:28→16:03)
[2021-07-08] MEDS: BICALUTAMIDE 50 MG TABLET GT SCH (08:28)
[2021-07-08] MEDS: HYDROCODONE/APAP 5/325MG TABLET GT SCH (08:29)
[2021-07-08] MEDS: PANTOPRAZOLE 40 MG/PACK PACK GT SCH (08:29)
[2021-07-08] MEDS: FOLIC ACID 1 MG TABLET GT SCH (08:29)
[2021-07-08] MEDS: BACLOFEN (10 MG) 10 MG TABLET GT SCH (08:29)
[2021-07-08] MEDS: MULTIVIT W/MINERALS 1 TAB TABLET GT SCH (08:29)
[2021-07-08] MEDS: PYRIDOXINE HCL 50 MG TABLET GT SCH (08:29)
[2021-07-08] MEDS: DOCUSATE SODIUM LIQ 100 MG/10 ML UDC GT SCH ×2 (08:29→16:03)
[2021-07-08] MEDS: LORATADINE 10 MG TABLET GT SCH (08:29)
[2021-07-08] MEDS: ENOXAPARIN SODIUM 40 MG/0.4 ML DISP.SYRIN SQ SCH (08:30)
[2021-07-08] MEDS: Z GUARD REMEDY 2 OZ OINT TP SCH (08:43)
[2021-07-08] MEDS: PROSOURCE / PROSTAT (PYXIS) 30 ML UDC GT SCH ×3 (08:43→16:04)
[2021-07-08] MEDS: TIMOLOL 0.5% SOLN OPHTH 5 ML BOTTLE EACHEYE SCH ×2 (08:43→16:04)
[2021-07-08] MEDS: DAKINS QUARTER STRENGTH (0.125%) 480 ML BOTTLE TOP SCH (08:43)
[2021-07-08] MEDS: THERAHONEY GEL 1.5 OZ TUBE TP SCH (08:44)
--- NOTE | 2021-07-08 09:58 | NUR ---
RN NOTES; FOLLOWED UP WITH MD REGARDING DIETARY RECOMMENDATION FOR PRUNELAX 2 TABS EVERY OTHER DAY. NIGHT RN REPORTED PT HAD A BM ON THEIR SHIFT. MD AWARE, NO NEW ORDERS. WILL CONTINUE TO MONITOR.
[2021-07-08] MEDS: CEFTRIAXONE 2 G in IV D5W 100 ML IV SCH (10:01)
[2021-07-08] MEDS ORDERED: NEUTRA PHOS 1 POWD.PACKET GT ONE (11:00)
[2021-07-08] MEDS ORDERED: POTASSIUM CHLORIDE 20 MEQ POWDER PACKET GT SCH (11:00)
[2021-07-08 12:00] VITALS: BP 125/73
[2021-07-08] MEDS: FUROSEMIDE 40 MG/4 ML VIAL IV SCH ×2 (12:00→16:03)
[2021-07-08 16:00] VITALS: BP 122/74
--- NOTE | 2021-07-08 18:57 | NUR ---
RN CLOSING NOTES; PT IN BED IN SUPINE POS. PT IS OBTUNDED. PT ON NEPHRO 40ML/HR, GTUBE FLUSHED WITH 200CC WATER Q4H. ALL MEDICATIONS GIVEN AND TOLERATED WELL. WOUND CARE DONE, AND TOLERATED WELL. NO SIGNIFICANT CHANGES IN PT HEALTH STATUS. PT KEPT CLEAN, DRY AND COMFORTABLE. ALL SAFETY MEASURES RENDERED, BED IN LOWEST POS. LOCKED, SIDE RAILS X3 UP, WITH CALL LIGHT WITHIN REACH. ENDORSED TO LIFE SKILLS WORKER RN, IN STABLE CONDITION.
--- NOTE | 2021-07-08 19:15 | NUR ---
RN NOTES RECEIVED REPORT FROM MORNING NURSE. PATIENT IN BED. ON TRACH CONNECTED TO MV WITH PRESCRIBED SETTINGS TOLERATING WELL SATING 98%. WITH GONCALVES CATHETER CONNECTED TO URINE BAG PATENT. WITH GT PATENT NO RESIDUAL NOTED. WITH L UA PICC LINE PATENT FLUSHES WELL. VITAL SIGNS TAKEN AND RECORDED. ALL SAFETY MEASURES IN PLACE, HOB ELEVATED. CALL LIGHT WITHIN REACH. WILL CONTINUE TO MONITOR PATIENT
[2021-07-08 20:00] VITALS: BP 122/74
[2021-07-08] MEDS: LATANOPROST EYE DROP 0.005% 2.5 ML BOTTLE EACHEYE SCH (22:26)
[2021-07-09] VITALS: BP 119/69
[2021-07-09] MEDS: POLYVINYL ALCOHOL 15 ML BOTTLE OP SCH ×4 (00:18→17:46)
[2021-07-09 04:00] VITALS: BP 123/65
[2021-07-09] MEDS: FLUDROCORTISONE 0.1 MG TABLET GT SCH ×3 (06:21→17:28)
--- NOTE | 2021-07-09 07:01 | NUR ---
RN NOTES PATIENT REMAINS STABLE THE WHOLE SHIFT NO DISTRESS NO SOB NOTED. ALL DUE MEDS GIVEN ORDERED. ALL SAFETY MEASURES IN PLACE, HOB ELEVATED CALL LIGHT WITHIN REACH. ALL NEEDS ATTENDED PROMPTLY. ENDORSED
[2021-07-09 07:29] LABS: BASOPHILS % (AUTO) 0.1 % (0.0-2.0); EOSINOPHILS % (AUTO) 2.1 % (0.0-6.0); HEMATOCRIT 28 % (39-51); HEMOGLOBIN 8.7 g/dL (13.5-17.5); LYMPHOCYTES # (AUTO) 0.9 K/uL (0.8-4.8); LYMPHOCYTES % (AUTO) 7.6 % (20.0-44.0); MEAN CORPUSCULAR HGB CONC 31 g/dl (31.0-36.0); MEAN CORPUSCULAR VOLUME 90 fL (80-96); MONOCYTES # (AUTO) 0.4 K/uL (0.1-1.30); MONOCYTES % (AUTO) 3.1 % (2.0-12.0); NEUTROPHILS # (AUTO) 10.1 K/uL (1.8-8.9); NEUTROPHILS % (AUTO) 87.1 % (43.0-81.0); PLATELET COUNT (AUTO) 173 K/uL (150-450); RED BLOOD CELL COUNT(AUTO) 3.14 MIL/uL (4.5-6.0); WHITE BLOOD COUNT (AUTO) 11.6 K/uL (4.3-11.0)
--- NOTE | 2021-07-09 07:30 | NUR ---
RN NOTE PATIENT OBSERVED IN BED, OBTUNDED, ON TRACHEOSTOMY WITH MECHANICAL VENTILATOR, ON TELE MONITOR SINUS TACHY AT THIS TIME HR OF 101, WITH NEPHRO 40CC/HR TOLERATING WELL, 0 RESIDUAL NOTED, WITH LEFT UPPER ARM PICC LINE NOTED PATENT AND FLUSHING WELL, ON GONCALVES CATHETER DRAINING WELL VIA GRAVITY WITH NO HEMATURIA NOTED, SAFETY MEASURE OBSERVED, CALL LIGHT WITHIN REACH, WILL CONTINUE TO MONITOR.
[2021-07-09 07:48] LABS: PHOSPHORUS 3.1 mg/dL (2.5-4.9)
[2021-07-09 08:00] VITALS: BP 121/69
[2021-07-09] MEDS: ENOXAPARIN SODIUM 40 MG/0.4 ML DISP.SYRIN SQ SCH (08:45)
[2021-07-09] MEDS: FERROUS SULFATE UDC 300 MG/5 ML UDC GT SCH ×2 (08:46→17:28)
[2021-07-09] MEDS: LORATADINE 10 MG TABLET GT SCH (08:46)
[2021-07-09] MEDS: FOLIC ACID 1 MG TABLET GT SCH (08:46)
[2021-07-09] MEDS: BACLOFEN (10 MG) 10 MG TABLET GT SCH (08:46)
[2021-07-09] MEDS: HYDROCODONE/APAP 5/325MG TABLET GT SCH (08:46)
[2021-07-09] MEDS: DOCUSATE SODIUM LIQ 100 MG/10 ML UDC GT SCH ×2 (08:46→17:28)
[2021-07-09] MEDS: MULTIVIT W/MINERALS 1 TAB TABLET GT SCH (08:46)
[2021-07-09] MEDS: PROSOURCE / PROSTAT (PYXIS) 30 ML UDC GT SCH ×3 (08:47→17:46)
[2021-07-09] MEDS: PYRIDOXINE HCL 50 MG TABLET GT SCH (08:47)
[2021-07-09] MEDS: BICALUTAMIDE 50 MG TABLET GT SCH (08:49)
[2021-07-09] MEDS: PANTOPRAZOLE 40 MG/PACK PACK GT SCH (08:49)
[2021-07-09] MEDS: FUROSEMIDE 40 MG/4 ML VIAL IV SCH ×3 (08:50→17:28)
[2021-07-09] MEDS: TIMOLOL 0.5% SOLN OPHTH 5 ML BOTTLE EACHEYE SCH ×2 (09:07→17:46)
[2021-07-09] MEDS: THERAHONEY GEL 1.5 OZ TUBE TP SCH (09:07)
[2021-07-09] MEDS: Z GUARD REMEDY 2 OZ OINT TP SCH (09:07)
[2021-07-09] MEDS: DAKINS QUARTER STRENGTH (0.125%) 480 ML BOTTLE TOP SCH (09:07)
[2021-07-09] MEDS: POTASSIUM CHLORIDE 20 MEQ POWDER PACKET GT SCH ×2 (09:25→10:54)
[2021-07-09] MEDS: CEFTRIAXONE 2 G in IV D5W 100 ML IV SCH (11:17)
[2021-07-09 12:00] VITALS: BP 131/81
[2021-07-09 16:00] VITALS: BP 127/78
--- NOTE | 2021-07-09 18:30 | NUR ---
RN NOTE PATIENT OBSERVED IN BED, OBTUNDED, ON TRACHEOSTOMY WITH MECHANICAL VENTILATOR, ON TELE MONITOR SINUS TACHY AT THIS TIME HR OF 101, WITH NEPHRO 40CC/HR TOLERATING WELL, 0 RESIDUAL NOTED, WATER FLUSH OF 200 CC/ Q4H, POTASSIUM REPLACE, CONTINUE DIURETICS ORDERED, WITH LEFT UPPER ARM PICC LINE NOTED PATENT AND FLUSHING WELL, ON GONCALVES CATHETER DRAINING WELL VIA GRAVITY WITH NO HEMATURIA NOTED, SAFETY MEASURE OBSERVED, CALL LIGHT WITHIN REACH, WILL ENDORSE TO NOC SHIFT.
[2021-07-09 20:00] VITALS: BP 139/75
[2021-07-09] MEDS: NEPRO 1,000 ML BOTTLE GT PRN (22:00)
[2021-07-09] MEDS: LATANOPROST EYE DROP 0.005% 2.5 ML BOTTLE EACHEYE SCH (22:09)
[2021-07-10] VITALS: BP 139/86
[2021-07-10] MEDS: FLUDROCORTISONE 0.1 MG TABLET GT SCH ×4 (00:50→18:04)
[2021-07-10] MEDS: POLYVINYL ALCOHOL 15 ML BOTTLE OP SCH ×4 (00:50→18:05)
[2021-07-10 04:00] VITALS: BP 143/83
[2021-07-10 07:03] LABS: BASOPHILS % (AUTO) 0.1 % (0.0-2.0); EOSINOPHILS % (AUTO) 0.7 % (0.0-6.0); HEMATOCRIT 32 % (39-51); HEMOGLOBIN 9.6 g/dL (13.5-17.5); LYMPHOCYTES # (AUTO) 1.3 K/uL (0.8-4.8); LYMPHOCYTES % (AUTO) 8.5 % (20.0-44.0); MEAN CORPUSCULAR HGB CONC 30 g/dl (31.0-36.0); MEAN CORPUSCULAR VOLUME 90 fL (80-96); MONOCYTES # (AUTO) 0.6 K/uL (0.1-1.30); MONOCYTES % (AUTO) 3.8 % (2.0-12.0); NEUTROPHILS # (AUTO) 13.7 K/uL (1.8-8.9); NEUTROPHILS % (AUTO) 86.9 % (43.0-81.0); PLATELET COUNT (AUTO) 172 K/uL (150-450); RED BLOOD CELL COUNT(AUTO) 3.54 MIL/uL (4.5-6.0); WHITE BLOOD COUNT (AUTO) 15.7 K/uL (4.3-11.0)
--- NOTE | 2021-07-10 07:15 | NUR ---
RN OPENING NOTES RECEIVED RESTING IN BED. OBTUNDED. TRACH CONNECTED TO VENT, SETTINGS: AC:14, TV: 450, FIO2: 40% AND PEEP OF 5. TOLERATING VENT SETTINGS WELL. NO SOB OR ANY S/S OF ACUTE RESPIRATORY DISTRESS NOTED. TELE MONITOR READING ST. IV ACCESS ON [place] PICC LINE INTACT, PATENT AND FLUSHED. GT IN PLACE. POSITIVE PLACEMENT CHECKED BY AUSCULTATION. NO RESIDUAL. TF OF NEPRO @40ML. TOLERATING FEEDING WELL. SAFETY MEASURES IMPLEMENTED. CALL LIGHT WITHIN REACH. BED LOCKED AND IN LOWEST POSITION WITH SIDE RAILS UP X2. HOB ELEVATED, BED ALARM ON. WILL CONTINUE TO MONITOR.
[2021-07-10 07:25] LABS: CALCIUM, SERUM 9.4 mg/dL (8.5-10.1); MAGNESIUM 1.9 mg/dL (1.8-2.4); PHOSPHORUS 3.3 mg/dL (2.5-4.9); POTASSIUM 3.3 mmol/L (3.5-5.1)
[2021-07-10 08:00] VITALS: BP 147/94
[2021-07-10] MEDS ORDERED: POTASSIUM CHLORIDE 20 MEQ POWDER PACKET GT SCH (08:30)
[2021-07-10] MEDS: DOCUSATE SODIUM LIQ 100 MG/10 ML UDC GT SCH ×2 (08:56→16:50)
[2021-07-10] MEDS: BICALUTAMIDE 50 MG TABLET GT SCH (08:56)
[2021-07-10] MEDS: ENOXAPARIN SODIUM 40 MG/0.4 ML DISP.SYRIN SQ SCH (08:56)
[2021-07-10] MEDS: BACLOFEN (10 MG) 10 MG TABLET GT SCH (08:56)
[2021-07-10] MEDS: FUROSEMIDE 40 MG/4 ML VIAL IV SCH ×2 (08:57→16:50)
[2021-07-10] MEDS: PANTOPRAZOLE 40 MG/PACK PACK GT SCH (08:58)
[2021-07-10] MEDS: LORATADINE 10 MG TABLET GT SCH (08:58)
[2021-07-10] MEDS: FERROUS SULFATE UDC 300 MG/5 ML UDC GT SCH ×2 (08:58→16:50)
[2021-07-10] MEDS: MULTIVIT W/MINERALS 1 TAB TABLET GT SCH (08:59)
[2021-07-10] MEDS: PYRIDOXINE HCL 50 MG TABLET GT SCH (09:00)
[2021-07-10] MEDS: HYDROCODONE/APAP 5/325MG TABLET GT SCH (09:00)
[2021-07-10] MEDS: FOLIC ACID 1 MG TABLET GT SCH (09:00)
[2021-07-10] MEDS: Z GUARD REMEDY 2 OZ OINT TP SCH (09:02)
[2021-07-10] MEDS: THERAHONEY GEL 1.5 OZ TUBE TP SCH (09:02)
[2021-07-10] MEDS: DAKINS QUARTER STRENGTH (0.125%) 480 ML BOTTLE TOP SCH (09:03)
[2021-07-10] MEDS: PROSOURCE / PROSTAT (PYXIS) 30 ML UDC GT SCH ×3 (09:03→16:50)
[2021-07-10] MEDS: TIMOLOL 0.5% SOLN OPHTH 5 ML BOTTLE EACHEYE SCH ×2 (09:10→16:51)
[2021-07-10] MEDS: CEFTRIAXONE 2 G in IV D5W 100 ML IV SCH (11:30)
[2021-07-10 12:00] VITALS: BP 146/85
[2021-07-10 16:00] VITALS: BP 138/72
--- NOTE | 2021-07-10 19:31 | NUR ---
RN CLOSING NOTES NO SIGNIFICANT CHANGES THROUGHOUT THE SHIFT. ALL DUE MEDS GIVEN. NEEDS ATTENDED. KEPT CLEAN AND COMFORTABLE. SAFETY MEASURES IMPLEMENTED. ENDORSED TO NIGHT RN FOR SANDY.
[2021-07-10 20:00] VITALS: BP 129/79
--- NOTE | 2021-07-10 20:00 | NUR ---
RN NOTE RECEIVED PT OBTUNDED, WITH TRACH CONNECTED TO VENT. NO SIGNS OF DISTRESS NOTED. O2 SAT AT 98%. PT GT PATENT AND IN PLACE, ON NEPRO FEEDING AT 40 ML/HR, NO RESIDUALS NOTED. KEPT HOB ELEVATED. PT ON TELE MONITOR SHOWS SINUS TACH WITH HR OF 107 PTS BASELINE. PT GONCALVES INPLACE, DRANING CLEAR YELLOW OUTPUT. WILL CONTINUE TO MONITOR.
[2021-07-10] MEDS: LATANOPROST EYE DROP 0.005% 2.5 ML BOTTLE EACHEYE SCH (21:53)
[2021-07-11] VITALS: BP 127/85
[2021-07-11] MEDS: FLUDROCORTISONE 0.1 MG TABLET GT SCH ×4 (00:02→18:02)
[2021-07-11] MEDS: POLYVINYL ALCOHOL 15 ML BOTTLE OP SCH ×4 (00:09→18:02)
[2021-07-11 04:00] VITALS: BP 140/72
[2021-07-11 06:11] LABS: BASOPHILS % (AUTO) 0.1 % (0.0-2.0); EOSINOPHILS % (AUTO) 1.9 % (0.0-6.0); HEMATOCRIT 28 % (39-51); HEMOGLOBIN 8.5 g/dL (13.5-17.5); LYMPHOCYTES % (AUTO) 6.7 % (20.0-44.0); MEAN CORPUSCULAR HGB CONC 31 g/dl (31.0-36.0); MEAN CORPUSCULAR VOLUME 90 fL (80-96); MONOCYTES # (AUTO) 0.5 K/uL (0.1-1.30); MONOCYTES % (AUTO) 3.6 % (2.0-12.0); NEUTROPHILS # (AUTO) 12.8 K/uL (1.8-8.9); NEUTROPHILS % (AUTO) 87.7 % (43.0-81.0); PLATELET COUNT (AUTO) 165 K/uL (150-450); RED BLOOD CELL COUNT(AUTO) 3.09 MIL/uL (4.5-6.0); WHITE BLOOD COUNT (AUTO) 14.7 K/uL (4.3-11.0)
[2021-07-11 06:39] LABS: CALCIUM, SERUM 9.4 mg/dL (8.5-10.1); CREATININE 0.9 mg/dL (0.6-1.3); PHOSPHORUS 3.2 mg/dL (2.5-4.9)
[2021-07-11 06:46] LABS: POTASSIUM 2.7 mmol/L (3.5-5.1)
--- NOTE | 2021-07-11 07:01 | NUR ---
RN NOTE PT TOLERATING VENT SETTINGS, NO S/SX OF RESP DISTRESS NOTED. CONTINUE ON GT FEEDING, TOLERATES WELL NO RESIDUALS NOTED. KEPT HOB ELEVATED. NO SIGNS OF ASPIRATION NOTED. WOUND TX WERE DONE ORDERED. TURNED AND REPOSITIONED. GONCALVES CATH DRAINING WELL. ALL SAFETY MEASURES MAINTAINED. WILL ENDORSE TO NEXT SHIFT NURSE FOR SANDY.
--- NOTE | 2021-07-11 07:33 | NUR ---
left message to of potassium level 2.7 and co2 41 waiting for returning call back
[2021-07-11 08:00] VITALS: BP 126/65
[2021-07-11] MEDS: BACLOFEN (10 MG) 10 MG TABLET GT SCH (08:28)
[2021-07-11] MEDS: LORATADINE 10 MG TABLET GT SCH (08:28)
[2021-07-11] MEDS: MULTIVIT W/MINERALS 1 TAB TABLET GT SCH (08:28)
[2021-07-11] MEDS: HYDROCODONE/APAP 5/325MG TABLET GT SCH (08:30)
[2021-07-11] MEDS: FERROUS SULFATE UDC 300 MG/5 ML UDC GT SCH ×2 (08:30→16:29)
[2021-07-11] MEDS: PYRIDOXINE HCL 50 MG TABLET GT SCH (08:30)
[2021-07-11] MEDS: DOCUSATE SODIUM LIQ 100 MG/10 ML UDC GT SCH ×2 (08:30→16:29)
[2021-07-11] MEDS: FOLIC ACID 1 MG TABLET GT SCH (08:30)
[2021-07-11] MEDS: FUROSEMIDE 40 MG/4 ML VIAL IV SCH ×2 (08:31→16:29)
[2021-07-11] MEDS: ENOXAPARIN SODIUM 40 MG/0.4 ML DISP.SYRIN SQ SCH (08:31)
[2021-07-11] MEDS: PANTOPRAZOLE 40 MG/PACK PACK GT SCH (08:35)
[2021-07-11] MEDS: BICALUTAMIDE 50 MG TABLET GT SCH (08:35)
[2021-07-11] MEDS: THERAHONEY GEL 1.5 OZ TUBE TP SCH (09:00)
[2021-07-11] MEDS: DAKINS QUARTER STRENGTH (0.125%) 480 ML BOTTLE TOP SCH (09:00)
[2021-07-11] MEDS: TIMOLOL 0.5% SOLN OPHTH 5 ML BOTTLE EACHEYE SCH ×2 (09:00→16:29)
[2021-07-11] MEDS: PROSOURCE / PROSTAT (PYXIS) 30 ML UDC GT SCH ×3 (09:00→16:29)
[2021-07-11] MEDS: Z GUARD REMEDY 2 OZ OINT TP SCH (09:00)
[2021-07-11] MEDS ORDERED: POTASSIUM CHLORIDE 20 MEQ POWDER PACKET GT SCH (10:00)
[2021-07-11] MEDS: CEFTRIAXONE 2 G in IV D5W 100 ML IV SCH (11:37)
[2021-07-11 12:00] VITALS: BP 130/79
[2021-07-11 16:00] VITALS: BP 109/59
[2021-07-11] MEDS: POTASSIUM CL. PREMIX PERIPHER. 50 ML IV SCH ×4 (16:28→19:58)
[2021-07-11] MEDS: POTASSIUM CHLORIDE 20 MEQ POWDER PACKET GT SCH (16:32)
--- NOTE | 2021-07-11 19:30 | NUR ---
RN OPENING NOTE RECEIVED PATIENT IN BED. PATIENT IS OBTUNDED. ON MECHANICAL VENT SHILEY #7, AC 14, TV 450 FIO2 45% PEEP 0. RESPIRATIONS ARE EVEN AND UNLABORED. NO S/SS OB NOTED. NO S/S PAIN NOTED. TELE MONITOR READS SINUS TACHYCARDIA HR WITH PVCS HR 113. IN NO APPARENT DISTRESS. IV ACCESS IN HAWA PICC LINE SALINE LOCKED. AND MK MIDLINE RUNNING POTASSIUM. GTUBE , NO RESIDUAL, RUNNING NEPRO @40ML/HR, FLUSHED WITH 300 ML NO RESISTANCE. GONCALVES CATHETER IS PRESENT, DRAINING TO GRAVITY, URINE IS YELLOW, CLOUDY WITH SEDIMENTS. BED IS LOW AND LOCKED,HOB ELEVATED IN SEMI FOWLERS, SIDE RIALS S UP X2
[2021-07-11 20:00] VITALS: BP 113/72
[2021-07-11] MEDS: LATANOPROST EYE DROP 0.005% 2.5 ML BOTTLE EACHEYE SCH (21:05)
--- NOTE | 2021-07-11 22:00 | NUR ---
RN NOTE WAS INFORMED THAT PATIENT HAD 8 BEATS OF VTACH. PATIENT REMAINS OBTUNDED. WILL CALL TO NOTIFY MD.
--- NOTE | 2021-07-11 22:10 | NUR ---
RN NOTE [facility] EXCHANGE CALLED, THEY WILL NOTIFY DR. COLLADO TO CALL BACK.
--- NOTE | 2021-07-11 22:37 | NUR ---
RN NOTE SPOKE WITH DR. COLLADO. INFORMED HIM OF 8 BEATS OF VTACH. NONSUSTAINED. NO NEW ORDERS, AWARE.
[2021-07-12] VITALS: BP 114/72
[2021-07-12] MEDS: FLUDROCORTISONE 0.1 MG TABLET GT SCH ×4 (00:14→17:04)
[2021-07-12] MEDS: POLYVINYL ALCOHOL 15 ML BOTTLE OP SCH ×4 (00:14→17:08)
[2021-07-12] MEDS: NEPRO 1,000 ML BOTTLE GT PRN (01:24)
[2021-07-12 04:00] VITALS: BP 134/75
--- NOTE | 2021-07-12 07:43 | NUR ---
RN NOTE PATIENT RESTING IN BED. OBTUNDED. REMAINS ON MECHANICAL VENT NO CHANGES IN SETTINGS. NO RESP DISTRESS. NO PAIN. NO DISTRESS. SINUS TACHYCARDIA HR WITH PVCS HAWA PICC AND MK MIDLINE SALINE LOCKED. GTUBE RUNNING EPRO @40ML/HR, FLUSHED WITH 300 ML [id number]. GONCALVES CATHETER OUTPUT 700ML. BED REMAINS LOW AND LOCKED,HOB ELEVATED IN SEMI FOWLERS, SIDE RIALS S UP X2. WAS NOT ABLE TO PROVIDE PHOTOS QSUNDAY PER PROTOCOL D/T NO WOOD GOUGER , AND OVER RATIO. WILL ENDORSE TO ONCOMING SHIFT.
--- NOTE | 2021-07-12 07:44 | NUR ---
RN OPENING NOTE RECEIVE REPORT FROM OUT GOING NURSE. PATIENT IN STABLE CONDITION AT TIME OF REPORT. RECEIVING O2 VIA VENT AC 81, TV 450, FIO2 40, PEEP 0. PATIENT IS OBTUNDED. WILL FOLLOW UP WITH AM LABS. PROPER ISOLATION PRECAUTION IN PLACE. ALL SAFETY MEASURE IN PLACE. BED ON LOWEST POSITION WITH HOB ELEVATED WITH 3 SIDE RAIL UP. CALL LIGHT WITHIN REACH. WILL CONTINUE TO MONITOR.
[2021-07-12 07:45] LABS: BASOPHILS % (AUTO) 0.2 % (0.0-2.0); HEMATOCRIT 26 % (39-51); HEMOGLOBIN 8.2 g/dL (13.5-17.5); LYMPHOCYTES % (AUTO) 7.4 % (20.0-44.0); MEAN CORPUSCULAR HGB CONC 31 g/dl (31.0-36.0); MEAN CORPUSCULAR VOLUME 89 fL (80-96); MONOCYTES # (AUTO) 0.5 K/uL (0.1-1.30); MONOCYTES % (AUTO) 3.8 % (2.0-12.0); NEUTROPHILS # (AUTO) 11.7 K/uL (1.8-8.9); NEUTROPHILS % (AUTO) 86.6 % (43.0-81.0); PLATELET COUNT (AUTO) 149 K/uL (150-450); RED BLOOD CELL COUNT(AUTO) 2.96 MIL/uL (4.5-6.0); WHITE BLOOD COUNT (AUTO) 13.5 K/uL (4.3-11.0)
[2021-07-12 08:00] VITALS: BP 123/86
[2021-07-12 08:40] LABS: CALCIUM, SERUM 9.1 mg/dL (8.5-10.1); MAGNESIUM 1.9 mg/dL (1.8-2.4); PHOSPHORUS 2.9 mg/dL (2.5-4.9); POTASSIUM 3.1 mmol/L (3.5-5.1)
[2021-07-12] MEDS: DOCUSATE SODIUM LIQ 100 MG/10 ML UDC GT SCH ×2 (09:05→17:04)
[2021-07-12] MEDS: POTASSIUM CHLORIDE 20 MEQ POWDER PACKET GT SCH (09:06)
[2021-07-12] MEDS: FERROUS SULFATE UDC 300 MG/5 ML UDC GT SCH ×2 (09:06→17:06)
[2021-07-12] MEDS: PROSOURCE / PROSTAT (PYXIS) 30 ML UDC GT SCH ×3 (09:07→17:07)
[2021-07-12] MEDS: BACLOFEN (10 MG) 10 MG TABLET GT SCH (09:07)
[2021-07-12] MEDS: PANTOPRAZOLE 40 MG/PACK PACK GT SCH (09:07)
[2021-07-12] MEDS: MULTIVIT W/MINERALS 1 TAB TABLET GT SCH (09:07)
[2021-07-12] MEDS: PYRIDOXINE HCL 50 MG TABLET GT SCH (09:07)
[2021-07-12] MEDS: FOLIC ACID 1 MG TABLET GT SCH (09:07)
[2021-07-12] MEDS: HYDROCODONE/APAP 5/325MG TABLET GT SCH (09:08)
[2021-07-12] MEDS: LORATADINE 10 MG TABLET GT SCH (09:08)
[2021-07-12] MEDS: FUROSEMIDE 40 MG/4 ML VIAL IV SCH (09:08)
[2021-07-12] MEDS: ENOXAPARIN SODIUM 40 MG/0.4 ML DISP.SYRIN SQ SCH (09:13)
[2021-07-12] MEDS: THERAHONEY GEL 1.5 OZ TUBE TP SCH (09:16)
[2021-07-12] MEDS: Z GUARD REMEDY 2 OZ OINT TP SCH (09:18)
[2021-07-12] MEDS: BICALUTAMIDE 50 MG TABLET GT SCH (09:25)
[2021-07-12] MEDS: TIMOLOL 0.5% SOLN OPHTH 5 ML BOTTLE EACHEYE SCH ×2 (09:26→17:06)
[2021-07-12] MEDS: DAKINS QUARTER STRENGTH (0.125%) 480 ML BOTTLE TOP SCH (09:48)
[2021-07-12] MEDS: CEFTRIAXONE 2 G in IV D5W 100 ML IV SCH (10:17)
[2021-07-12 12:00] VITALS: BP 105/62
[2021-07-12 16:00] VITALS: BP 104/67
--- NOTE | 2021-07-12 18:10 | NUR ---
RN CLOSING NOTE PATIENT MAINTAIN STABLE CONDITION WITH NO SIGN OF DISTRESS. VENT SETTING: AC 14, TV 450, FIO2 45, PEEP 0. OBTUNDED. CARDIA RHYTHM REMAIN TACHYCARDIA WITH OCCASIONAL PVCS. ALL WOUND CLEAN AND DRESSING CHANGED. G-TUBE FEEDING WITH NEPRO AT 40ML/HR AND WATER FLUSH WITH 300ML Q4H. ALL MEDICATION GIVEN. UPDATE WAS GIVEN MYLES DAVIS (SISTER). NEED TO UPDATE SISTER WHEN PATIENT TRANSFER TO [facility]. PROPER ISOLATION PRECAUTION IN PLACE. ALL SAFETY MEASURE IN PLACE. BED ON THE LOWEST POSITION WITH HOB ELEVATED AND 3 SIDE RAIL UP. CALL LIGHT WITHIN REACH. WILL CONTINUE TO MONITOR AND GIVE REPORT TO ON COMING NURSE.
--- NOTE | 2021-07-12 19:10 | NUR ---
RN NOTE RECEIVED PATINET IN BED RESTING OBTUNDED ON MECHANICAL VENT ON SETTING AC 14, TV 450, FIO2 45, PEEP 0 IV SITE IS ON LEFT UPPER ARM PICC LINE AND RIGHT UPPER ARM MIDLINE INTACT PATENT ON G-TUBE FEEDING NEPRO 40CC/HR CHECKED PLACEMENT,IN PLACE NO RESIDUAL NOTED,GONCALVES CATHETER IN PLACE URINE DRAINING YELLOW BY GRAVITY HEAD OF THE BED ELEVATED,SAFETY MEASURE IMPLEMENT SIDE RAIL UPX3 CONTINUE TO MONITOR
[2021-07-12 20:00] VITALS: BP 99/67
[2021-07-12] MEDS: LATANOPROST EYE DROP 0.005% 2.5 ML BOTTLE EACHEYE SCH (21:55)
[2021-07-13] VITALS: BP 101/70
[2021-07-13] MEDS: FLUDROCORTISONE 0.1 MG TABLET GT SCH ×5 (00:31→23:53)
[2021-07-13] MEDS: POLYVINYL ALCOHOL 15 ML BOTTLE OP SCH ×5 (00:32→23:53)
[2021-07-13] MEDS ORDERED: IV PREMIX D5W + KCL 1,000 ML IV ONE (03:25)
[2021-07-13] MEDS: Potassium Chloride 20 MEQ in IV D5W 1,000 ML IV PRN (03:31)
[2021-07-13 04:00] VITALS: BP 103/61
[2021-07-13 06:06] LABS: BASOPHILS % (AUTO) 0.3 % (0.0-2.0); HEMATOCRIT 26 % (39-51); HEMOGLOBIN 8.2 g/dL (13.5-17.5); LYMPHOCYTES # (AUTO) 1.4 K/uL (0.8-4.8); LYMPHOCYTES % (AUTO) 11.4 % (20.0-44.0); MEAN CORPUSCULAR HGB CONC 31 g/dl (31.0-36.0); MEAN CORPUSCULAR VOLUME 89 fL (80-96); MONOCYTES # (AUTO) 0.5 K/uL (0.1-1.30); MONOCYTES % (AUTO) 4.6 % (2.0-12.0); NEUTROPHILS # (AUTO) 9.7 K/uL (1.8-8.9); NEUTROPHILS % (AUTO) 81.7 % (43.0-81.0); PLATELET COUNT (AUTO) 149 K/uL (150-450); RED BLOOD CELL COUNT(AUTO) 2.94 MIL/uL (4.5-6.0); WHITE BLOOD COUNT (AUTO) 11.9 K/uL (4.3-11.0)
[2021-07-13 06:56] LABS: CALCIUM, SERUM 9.4 mg/dL (8.5-10.1); PHOSPHORUS 3.1 mg/dL (2.5-4.9); POTASSIUM 3.3 mmol/L (3.5-5.1)
--- NOTE | 2021-07-13 07:01 | NUR ---
RN NOTE PATIENT REMAINS OBTUNDED ON MECHANICAL VENT NO SOB NOT ACUTE DISTRESS NOTED ALL DUE MEDS GIVEN MD ORDERED KEPT CLEAN AND DRY ALL THE TIME,REPOSITIONED EVERY 2 HOURS HEAD OF THE BED ELEVATED ALL THE TIME ENDORSE NEXT COMING SHIFT FOR CONTINUATION OF CARE.
--- NOTE | 2021-07-13 07:06 | NUR ---
RN NOTE RECEIVED CRITICAL LAB RESULTS SODIUM 157 ENDORSE COMING SHIFT FOR CONTINUATION OF CARE.
--- NOTE | 2021-07-13 07:13 | NUR ---
NURSE OPENING NOTE RECEIVE REPORT FROM LINING STUFFER NURSE. PATIENT IN STABLE CONDITION AT TIME OF REPORT. ON VENTILATOR WITH PRESCRIBE VENT SETTINGS. SODIUM IS ELEVATED. WILL FOLLOW UP AM LABS. PROPER ISOLATION PRECAUTION IN PLACE. ALL SAFETY MEASURE IN PLACE. BED ON THE LOWEST POSITION WITH HOB ELEVATED AND 3 SIDE RAIL UP. CALL LIGHT WITHIN REACH. WILL CONTINUE TO MONITOR.
[2021-07-13 08:00] VITALS: BP 128/80
[2021-07-13] MEDS: ENOXAPARIN SODIUM 40 MG/0.4 ML DISP.SYRIN SQ SCH (09:10)
[2021-07-13] MEDS: FERROUS SULFATE UDC 300 MG/5 ML UDC GT SCH ×2 (09:11→16:34)
[2021-07-13] MEDS: HYDROCODONE/APAP 5/325MG TABLET GT SCH (09:11)
[2021-07-13] MEDS: BICALUTAMIDE 50 MG TABLET GT SCH (09:11)
[2021-07-13] MEDS: FOLIC ACID 1 MG TABLET GT SCH (09:11)
[2021-07-13] MEDS: DOCUSATE SODIUM LIQ 100 MG/10 ML UDC GT SCH ×2 (09:11→16:34)
[2021-07-13] MEDS: POTASSIUM CHLORIDE 20 MEQ POWDER PACKET GT SCH (09:11)
[2021-07-13] MEDS: BACLOFEN (10 MG) 10 MG TABLET GT SCH (09:11)
[2021-07-13] MEDS: PANTOPRAZOLE 40 MG/PACK PACK GT SCH (09:11)
[2021-07-13] MEDS: LORATADINE 10 MG TABLET GT SCH (09:12)
[2021-07-13] MEDS: TIMOLOL 0.5% SOLN OPHTH 5 ML BOTTLE EACHEYE SCH ×2 (09:12→16:35)
[2021-07-13] MEDS: MULTIVIT W/MINERALS 1 TAB TABLET GT SCH (09:12)
[2021-07-13] MEDS: PYRIDOXINE HCL 50 MG TABLET GT SCH (09:12)
[2021-07-13] MEDS: DAKINS QUARTER STRENGTH (0.125%) 480 ML BOTTLE TOP SCH (09:13)
[2021-07-13] MEDS: THERAHONEY GEL 1.5 OZ TUBE TP SCH (09:14)
[2021-07-13] MEDS: Z GUARD REMEDY 2 OZ OINT TP SCH (09:14)
[2021-07-13] MEDS: PROSOURCE / PROSTAT (PYXIS) 30 ML UDC GT SCH ×3 (09:15→16:34)
[2021-07-13] MEDS ORDERED: POTASSIUM CHLORIDE 20 MEQ POWDER PACKET NG SCH (09:30)
[2021-07-13] MEDS: NEPRO 1,000 ML BOTTLE GT PRN (09:32)
[2021-07-13] MEDS: CEFTRIAXONE 2 G in IV D5W 100 ML IV SCH (10:15)
[2021-07-13 12:00] VITALS: BP 104/72
[2021-07-13] MEDS: ACETAMINOPHEN 650 MG/20.3 ML UDC GT PRN (13:51)
--- NOTE | 2021-07-13 13:52 | NUR ---
RN NOTE ACETAMINOPHEN WAS GIVEN FOR TEMPERATURE OF 99.8 HR: 117
[2021-07-13 16:00] VITALS: BP 104/68
[2021-07-13] MEDS: CIPROFLOXACIN HCL 0.3% 5 ML BOTTLE EACHEYE SCH ×2 (16:35→20:17)
--- NOTE | 2021-07-13 18:43 | NUR ---
RN CLOSING NOTE PATIENT REMAIN IN BASELINE CONDITION THROUGH OUT SHIFT. MECHANICAL VENT SETTING REMAIN UNCHANGED: AC 14, TV 450, FIO2 5, PEEP 0. WOUND DRESSING WAS CHANGED. CONTINUE G-TUBE FEEDING WITH NEPRO @ 40ML/HR WITH 300ML FREE WATER FLUSH Q4HR. PATIENT TOLERATE WELL WITH RESIDUAL OF 25-30ML. TYLENOL WAS GIVEN AT 1350 FOR TEMPERATURE OF 98.8. TEMPERATURE AT 1600: 98.7. PATIENT TURN AND REPOSITIONED PER PROTOCOL. PROPER INSOLATION PRECAUTION IN PLACE. ALL SAFETY MEASURE IN PLACE. BED ON LOWEST POSITION WITH HOB ELEVATED AND 3 SIDE RAIL UP. CALL LIGHT WITHIN REACH. WILL CONTINUE TO MONITOR AND GIVE REPORT TO FURNITURE MAKER NURSE.
--- NOTE | 2021-07-13 19:30 | NUR ---
RN NOTE RECEIVED PATIENT IN BED OBTUNDED ON MECHANICAL VENT,GENERALIZED EDEMA.ON G-TUBE FEEDING NEPRO 40CC/HR CHECKED PLACEMENT IN PLACE NO RESIDUAL NOTED,GONCALVES CATHETER IN PLACE URINE DRAINING YELLOW BY GRAVITY,IV SITE IS LEFT UPPER ARM PICC LINE AND RIGHT UPPER MIDLINE INTAKE PATENT SAFETY MEASURE IMPLEMENT BED IN LOW POSITION AND LOCKED HEAD OF THE BED ELEVATED CONTINUE TO MONITOR.
[2021-07-13 20:00] VITALS: BP 114/59
[2021-07-13] MEDS: LATANOPROST EYE DROP 0.005% 2.5 ML BOTTLE EACHEYE SCH (21:05)
[2021-07-14] VITALS: BP 90/62
[2021-07-14] MEDS: CIPROFLOXACIN HCL 0.3% 5 ML BOTTLE EACHEYE SCH ×5 (00:20→17:22)
[2021-07-14] MEDS ORDERED: IV PREMIX D5W + KCL 1,000 ML IV ONE (02:22)
[2021-07-14] MEDS: Potassium Chloride 20 MEQ in IV D5W 1,000 ML IV PRN (02:28)
[2021-07-14 04:00] VITALS: BP 102/67
[2021-07-14] MEDS: POLYVINYL ALCOHOL 15 ML BOTTLE OP SCH ×3 (05:02→17:25)
[2021-07-14] MEDS: FLUDROCORTISONE 0.1 MG TABLET GT SCH ×3 (06:08→17:25)
--- NOTE | 2021-07-14 07:14 | NUR ---
RN NOTE PATIENT REMAINS ON OBTUNDED ON MECHANICAL VENT NO SOB NOT ACUTE DISTRESS NOTED ALL DUE MEDS GIVEN MD ORDERED KEPT CLEAN AND DRY ALL THE TIME KEPT COMFORTABLE HEAD OF THE BED ELEVATED REPOSITIONED EVERY 2 HOURS ENDORSE NEXT COMING SHIFT FOR CONTINUATION OF CARE.
--- NOTE | 2021-07-14 07:40 | NUR ---
WRAP TURNER OPENING NOTES RECEIVED PT OBTUNDED WITH HOB ELEVATED ON VENTILATOR AT THE PRESCRIBED SETTINGS, TOLERATING WELL. PT HAS NEPRO TUBE FEEDING RUNNING @ 40ML/HR. PT HAS GONCALVES CATHETER WITH YELLOW/CLEAR URINE OUTPUT. SAFETY MEASURES IN PLACE WITH BED IN LOWEST LOCKED POSITION, SIDE RAILS UP X3, CALL LIGHT WITHIN REACH AND BED ALARM ON.
[2021-07-14 08:00] VITALS: BP 96/65
[2021-07-14 08:13] LABS: BASOPHILS % (AUTO) 0.2 % (0.0-2.0); HEMATOCRIT 26 % (39-51); HEMOGLOBIN 8.2 g/dL (13.5-17.5); LYMPHOCYTES # (AUTO) 1.3 K/uL (0.8-4.8); LYMPHOCYTES % (AUTO) 12.2 % (20.0-44.0); MEAN CORPUSCULAR HGB CONC 31 g/dl (31.0-36.0); MEAN CORPUSCULAR VOLUME 89 fL (80-96); MONOCYTES # (AUTO) 0.5 K/uL (0.1-1.30); MONOCYTES % (AUTO) 5.1 % (2.0-12.0); NEUTROPHILS # (AUTO) 8.6 K/uL (1.8-8.9); NEUTROPHILS % (AUTO) 80.5 % (43.0-81.0); PLATELET COUNT (AUTO) 142 K/uL (150-450); RED BLOOD CELL COUNT(AUTO) 2.92 MIL/uL (4.5-6.0); WHITE BLOOD COUNT (AUTO) 10.6 K/uL (4.3-11.0)
[2021-07-14 08:37] LABS: CALCIUM, SERUM 8.8 mg/dL (8.5-10.1); CREATININE 1.1 mg/dL (0.6-1.3); MAGNESIUM 2.2 mg/dL (1.8-2.4); PHOSPHORUS 3.2 mg/dL (2.5-4.9); POTASSIUM 4.1 mmol/L (3.5-5.1)
[2021-07-14] MEDS: ACETAMINOPHEN 650 MG/20.3 ML UDC GT PRN (08:50)
[2021-07-14] MEDS: PANTOPRAZOLE 40 MG/PACK PACK GT SCH (08:50)
[2021-07-14] MEDS: FERROUS SULFATE UDC 300 MG/5 ML UDC GT SCH ×2 (08:50→17:25)
[2021-07-14] MEDS: DOCUSATE SODIUM LIQ 100 MG/10 ML UDC GT SCH ×2 (08:50→17:24)
[2021-07-14] MEDS: MULTIVIT W/MINERALS 1 TAB TABLET GT SCH (08:51)
[2021-07-14] MEDS: HYDROCODONE/APAP 5/325MG TABLET GT SCH (08:51)
[2021-07-14] MEDS: POTASSIUM CHLORIDE 20 MEQ POWDER PACKET GT SCH (08:51)
[2021-07-14] MEDS: PYRIDOXINE HCL 50 MG TABLET GT SCH (08:51)
[2021-07-14] MEDS: LORATADINE 10 MG TABLET GT SCH (08:51)
[2021-07-14] MEDS: BICALUTAMIDE 50 MG TABLET GT SCH (08:52)
[2021-07-14] MEDS: BACLOFEN (10 MG) 10 MG TABLET GT SCH (08:52)
[2021-07-14] MEDS: FOLIC ACID 1 MG TABLET GT SCH (08:53)
[2021-07-14] MEDS: TIMOLOL 0.5% SOLN OPHTH 5 ML BOTTLE EACHEYE SCH ×2 (08:54→17:23)
[2021-07-14] MEDS: ENOXAPARIN SODIUM 40 MG/0.4 ML DISP.SYRIN SQ SCH (08:56)
[2021-07-14] MEDS: PROSOURCE / PROSTAT (PYXIS) 30 ML UDC GT SCH ×3 (08:56→17:00)
[2021-07-14] MEDS: THERAHONEY GEL 1.5 OZ TUBE TP SCH (09:00)
[2021-07-14] MEDS: DAKINS QUARTER STRENGTH (0.125%) 480 ML BOTTLE TOP SCH (09:00)
[2021-07-14] MEDS: Z GUARD REMEDY 2 OZ OINT TP SCH (09:01)
[2021-07-14 09:51] LABS: ABG BASE EXCESS 11.1 mmol/L; ABG OXYGEN SATURATION 98.1 % (92.0-98.5); ABG PCO2 47.2 mmHg (35.0-45.0); ABG PH 7.495 (7.350-7.450); ABG PO2 107.1 mmHg (75.0-100.0); AaDO2 160.1 mmHg; COHb 0.5 % (0.5-1.5); MetHb 0.2 % (0.0-1.5); O2Hb 97.4 % (94.0-97.0); SITE, ABG Right Radial; VENT MODE, BG AC 14 450 45%
[2021-07-14] MEDS: CEFTRIAXONE 2 G in IV D5W 100 ML IV SCH (11:28)
[2021-07-14 12:00] VITALS: BP 95/64
[2021-07-14] MEDS ORDERED: Potassium Chloride 20 MEQ in IV D5/0.45 NACL 1,000 ML IV SCH (12:30)
[2021-07-14 16:00] VITALS: BP 94/65
--- NOTE | 2021-07-14 17:30 | NUR ---
DRAFTER ASSISTANT NOTES PT CLEARED BY PULMONARY FOR DISCHARGE. PT TRANSFERRED TO , REPORT GIVEN TO JARET. PT ON A VENTILATOR AT PRESCRIBED SETTINGS TRACH - SHILEY, AC 14, TV 450, FIO2 40 PEEP 0. WOUND CARE PERFORMED. PT TRANSFERRED WITH HAWA PICC SL, MK ML 18G SL, FLUSHED PATENT AND INTACT. PT HAS A GONCALVES WITH 900ML OUTPUT ON SHIFT AND NO BM. RT ASSISTED WITH TRANSFER, PT TAKEN TO ROOM 277, ORIENTED TO ROOM, DISCHARGE INSTRUCTIONS GIVEN TO RN FOR CONTINUITY OF CARE.
[2021-07-14] MEDS ORDERED: NUT.237L67 GT (18:42)
[2021-07-14] MEDS ORDERED: SODI473S8 TD (18:42)
[2021-07-14] MEDS ORDERED: CIPR5DRO18 EACHEYE (18:42)
[2021-07-14] MEDS ORDERED: ALLA266C2 TP (18:42)
[2021-07-14] MEDS ORDERED: POLY15DR40 EACHEYE (18:42)
[2021-07-14] MEDS ORDERED: CEFT2VIA14 IV (18:42)
[2021-07-14] MEDS ORDERED: POTA20PA3 GT (18:42)
[2021-07-14] MEDS ORDERED: THERAHONEY TD (18:42)
[2021-07-14] MEDS ORDERED: FLUD0.1T GT (18:42)
== END 2021-07-14 17:30 | DRG 853 ==
LOC: ER 02:36 → TELE1 08:27 → ICU 07-02 06:47 → TELE1 07-06 18:40 → TELE-TD 07-06 20:45 → TELE1 07-07 13:00
PROVIDERS: ADMIT Registered Nurse; ATTEND Nurse Practitioner Family
PROC: 5A1955Z Respiratory Ventilation, Greater than 96 Consecutive Hours (ICD-10-PCS; principal; 2021-07-01)
PROC: 02HV33Z Insertion of Infusion Device into Superior Vena Cava, Percutaneous Approach (ICD-10-PCS; 2021-07-02)
PROC: B548ZZA Ultrasonography of Superior Vena Cava, Guidance (ICD-10-PCS; 2021-07-02)
PROC: 0KBN0ZZ Excision of Right Hip Muscle, Open Approach (ICD-10-PCS; 2021-07-06)
PROC: 0KBT0ZZ Excision of Left Lower Leg Muscle, Open Approach (ICD-10-PCS; 2021-07-06)
PROC: 05H933Z Insertion of Infusion Device into Right Brachial Vein, Percutaneous Approach (ICD-10-PCS; 2021-07-11)
PROC: 0KBN0ZZ Excision of Right Hip Muscle, Open Approach (ICD-10-PCS; 2021-07-13)
PROC: 0KBT0ZZ Excision of Left Lower Leg Muscle, Open Approach (ICD-10-PCS; 2021-07-13)
DX: A41.59 Other Gram-negative sepsis (principal); L89.214 Pressure ulcer of right hip, stage 4; J69.0 Pneumonitis due to inhalation of food and vomit; E43 Unspecified severe protein-calorie malnutrition; G92.8 Other toxic encephalopathy; J96.21 Acute and chronic respiratory failure with hypoxia; R65.21 Severe sepsis with septic shock; I21.A1 Myocardial infarction type 2; J15.6 Pneumonia due to other Gram-negative bacteria; N39.0 Urinary tract infection, site not specified; N17.9 Acute kidney failure, unspecified; Z99.11 Dependence on respirator [ventilator] status; M48.54XA Collapsed vertebra, not elsewhere classified, thoracic region, initial encounter for fracture; Z16.24 Resistance to multiple antibiotics; J90 Pleural effusion, not elsewhere classified; N02.9 Recurrent and persistent hematuria with unspecified morphologic changes; I87.313 Chronic venous hypertension (idiopathic) with ulcer of bilateral lower extremity; L97.518 Non-pressure chronic ulcer of other part of right foot with other specified severity; L97.819 Non-pressure chronic ulcer of other part of right lower leg with unspecified severity; E87.1 Hypo-osmolality and hyponatremia; E87.2 Acidosis; E87.0 Hyperosmolality and hypernatremia; B96.4 Proteus (mirabilis) (morganii) as the cause of diseases classified elsewhere; I25.10 Atherosclerotic heart disease of native coronary artery without angina pectoris; Z20.822 Contact with and (suspected) exposure to COVID-19; S81.002A Unspecified open wound, left knee, initial encounter; X58.XXXA Exposure to other specified factors, initial encounter; Y92.9 Unspecified place or not applicable; Z86.73 Personal history of transient ischemic attack (TIA), and cerebral infarction without residual deficits; Z87.01 Personal history of pneumonia (recurrent); Z93.0 Tracheostomy status; R13.10 Dysphagia, unspecified; Z85.47 Personal history of malignant neoplasm of testis; N40.0 Benign prostatic hyperplasia without lower urinary tract symptoms; Z93.1 Gastrostomy status; Z79.899 Other long term (current) drug therapy; Z79.82 Long term (current) use of aspirin; Z79.51 Long term (current) use of inhaled steroids; M20.42 Other hammer toe(s) (acquired), left foot; M20.41 Other hammer toe(s) (acquired), right foot; N20.0 Calculus of kidney; K59.00 Constipation, unspecified; K21.9 Gastro-esophageal reflux disease without esophagitis; I70.0 Atherosclerosis of aorta; I11.9 Hypertensive heart disease without heart failure; D64.9 Anemia, unspecified; I73.9 Peripheral vascular disease, unspecified; F43.10 Post-traumatic stress disorder, unspecified; Y95 Nosocomial condition; G80.9 Cerebral palsy, unspecified; F32.A Depression, unspecified; L97.529 Non-pressure chronic ulcer of other part of left foot with unspecified severity; B96.1 Klebsiella pneumoniae [K. pneumoniae] as the cause of diseases classified elsewhere; E87.5 Hyperkalemia; E87.6 Hypokalemia
CPT/HCPCS: 31720; 36410; 36415; 36569; 36600; 71045-TC; 80048-TC; 80053-TC; 80202-TC; 81001; 82248-TC; 82533; 82728-TC; 82803-TC; 83540-TC; 83605-TC; 83735-TC; 83880; 84100-TC; 84484-TC; 85025-TC; 85730-TC; 87040-TC; 87070-TC; 87081-TC; 87086-TC; 87186-TC; 94002-TC; 94003-TC; 94640-TC; 94760-TC; 94762-TC; 94799-TC; 99082-TC; A4216; A4217; A6253; A6403; C1750; G0378; J0692; J0696; J0713; J1650; J1720; J1940; J2060; J3370; J3480; J3490; J7030; J7040; J7050; J7060; J7070; P9047; Q0162; U0003

== ENCOUNTER → 2021-09-03 02:22 | Inpatient (IN) | payer MEDICARE, OTHER ==
--- NOTE | 2021-08-16 08:55 | NUR ---
Please see resident's previous account [phone] for all assessments and nurses notes.
[2021-08-16] MEDS: FLUDROCORTISONE 0.1 MG TABLET GT SCH ×2 (12:00→17:08)
[2021-08-16] MEDS: POLYVINYL ALCOHOL 15 ML BOTTLE EACHEYE SCH ×2 (12:00→17:08)
[2021-08-16] MEDS: PROSOURCE / PROSTAT (PYXIS) 30 ML UDC GT SCH ×2 (13:00→17:08)
[2021-08-16] MEDS: ALBUTEROL FS 2.5 MG/0.5 ML VIAL.NEB NEB SCH ×2 (13:30→20:25)
[2021-08-16] MEDS: IPRATROPIUM NEB FS 0.5 MG/2.5 ML AMPUL.NEB NEB SCH ×2 (13:30→20:25)
--- NOTE | 2021-08-16 13:55 | NUR ---
Virtual rounds done by ANGELLA Porras, no new order given.
[2021-08-16 14:11] VITALS: BP 121/77
[2021-08-16 14:12] VITALS: BP 131/78
[2021-08-16] MEDS: TIMOLOL -XE 0.5% 5 ML BOTTLE EACHEYE SCH (17:08)
[2021-08-16] MEDS: FERROUS SULFATE - FOR SA ONLY 330 MG/7.5 ML UDC GT SCH (17:08)
[2021-08-16 19:15] VITALS: BP 121/77
[2021-08-16 20:14] VITALS: BP 125/78
[2021-08-16] MEDS: HYDROGEN PEROXIDE 480 ML BOTTLE TP SCH (21:15)
[2021-08-16] MEDS: DOCUSATE SODIUM LIQ 100 MG/10 ML UDC GT SCH (21:22)
[2021-08-16] MEDS: LATANOPROST EYE DROP 0.005% 2.5 ML BOTTLE EACHEYE SCH (21:23)
[2021-08-16] MEDS: Z GUARD REMEDY 4 OZ OINT TP SCH (21:23)
[2021-08-16] MEDS: Z GUARD REMEDY 2 OZ OINT TP SCH (21:23)
[2021-08-16 22:21] VITALS: BP 125/70
[2021-08-17] MEDS: FLUDROCORTISONE 0.1 MG TABLET GT SCH ×4 (00:29→17:57)
[2021-08-17] MEDS: POLYVINYL ALCOHOL 15 ML BOTTLE EACHEYE SCH ×4 (00:29→17:57)
[2021-08-17] MEDS: IPRATROPIUM NEB FS 0.5 MG/2.5 ML AMPUL.NEB NEB SCH ×4 (01:37→20:01)
[2021-08-17] MEDS: ALBUTEROL FS 2.5 MG/0.5 ML VIAL.NEB NEB SCH ×4 (01:37→20:01)
[2021-08-17] MEDS: Z GUARD REMEDY 2 OZ OINT TP SCH ×2 (09:00→21:19)
[2021-08-17] MEDS: Z GUARD REMEDY 4 OZ OINT TP SCH ×2 (09:00→21:19)
[2021-08-17] MEDS: DAKINS HALF STRENGTH (0.25%) 480 ML BOTTLE TOP SCH (09:00)
[2021-08-17] MEDS: DOCUSATE SODIUM LIQ 100 MG/10 ML UDC GT SCH ×2 (09:00→21:19)
[2021-08-17] MEDS: HYDROCODONE/APAP 5/325MG TABLET GT SCH (09:00)
[2021-08-17] MEDS: FOLIC ACID 1 MG TABLET GT SCH (09:00)
[2021-08-17] MEDS: BACLOFEN (10 MG) 10 MG TABLET GT SCH (09:00)
[2021-08-17] MEDS: VITAMINS A AND D 56.7 GM TUBE TP SCH (09:00)
[2021-08-17] MEDS: BICALUTAMIDE 50 MG TABLET GT SCH (09:00)
[2021-08-17] MEDS: PROSOURCE / PROSTAT (PYXIS) 30 ML UDC GT SCH ×3 (09:00→17:56)
[2021-08-17] MEDS: FERROUS SULFATE - FOR SA ONLY 330 MG/7.5 ML UDC GT SCH ×2 (09:00→17:56)
[2021-08-17] MEDS: MULTIVIT W/MINERALS 1 TAB TABLET GT SCH (09:00)
[2021-08-17] MEDS: PYRIDOXINE HCL 50 MG TABLET GT SCH (09:00)
[2021-08-17] MEDS: HYDROGEN PEROXIDE 480 ML BOTTLE TP SCH ×2 (09:00→21:41)
[2021-08-17] MEDS: PANTOPRAZOLE 40 MG/PACK PACK GT SCH (09:00)
[2021-08-17] MEDS: TIMOLOL -XE 0.5% 5 ML BOTTLE EACHEYE SCH ×2 (09:00→17:56)
[2021-08-17] MEDS: POVIDONE-IODINE OINT 28.4 GM TUBE TP SCH ×9 (09:00)
[2021-08-17] MEDS: ENOXAPARIN SODIUM 40 MG/0.4 ML DISP.SYRIN SQ SCH (09:00)
[2021-08-17] MEDS: LORATADINE 10 MG TABLET GT SCH (09:00)
[2021-08-17] MEDS: POTASSIUM CHLORIDE 20 MEQ POWDER PACKET GT SCH (09:00)
--- NOTE | 2021-08-17 09:00 | NUR ---
Virtual rounds done by Dr. Sullivan, new order given for CBC in AM, last blood draw done on 07/22/21
[2021-08-17 12:00] VITALS: BP 124/65
[2021-08-17 12:15] VITALS: BP 128/62
--- NOTE | 2021-08-17 15:51 | NUR ---
Family Invite to IDT: MAURICIO emailed the pt.'s sister, Shae and Maciej CHARLTON inviting them to participate in 08/20/2021 IDT Meeting. MAURICIO will follow up accordingly.
[2021-08-17 20:07] VITALS: BP 114/80
[2021-08-17] MEDS: LATANOPROST EYE DROP 0.005% 2.5 ML BOTTLE EACHEYE SCH (21:19)
[2021-08-17 22:20] VITALS: BP 114/80
[2021-08-18] MEDS: FLUDROCORTISONE 0.1 MG TABLET GT SCH ×5 (00:14→23:57)
[2021-08-18] MEDS: POLYVINYL ALCOHOL 15 ML BOTTLE EACHEYE SCH ×5 (00:14→23:57)
[2021-08-18] MEDS: ALBUTEROL FS 2.5 MG/0.5 ML VIAL.NEB NEB SCH ×4 (01:40→20:16)
[2021-08-18] MEDS: IPRATROPIUM NEB FS 0.5 MG/2.5 ML AMPUL.NEB NEB SCH ×4 (01:40→20:16)
[2021-08-18 01:47] VITALS: BP 125/74
[2021-08-18 07:42] LABS: BASOPHILS % (AUTO) 0.3 % (0.0-2.0); EOSINOPHILS % (AUTO) 1.9 % (0.0-6.0); HEMATOCRIT 30 % (39-51); HEMOGLOBIN 9.3 g/dL (13.5-17.5); LYMPHOCYTES # (AUTO) 0.8 K/uL (0.8-4.8); LYMPHOCYTES % (AUTO) 14.1 % (20.0-44.0); MEAN CORPUSCULAR HGB CONC 31 g/dl (31.0-36.0); MEAN CORPUSCULAR VOLUME 93 fL (80-96); MONOCYTES # (AUTO) 0.5 K/uL (0.1-1.30); MONOCYTES % (AUTO) 9.7 % (2.0-12.0); NEUTROPHILS # (AUTO) 4.1 K/uL (1.8-8.9); PLATELET COUNT (AUTO) 284 K/uL (150-450); RED BLOOD CELL COUNT(AUTO) 3.26 MIL/uL (4.5-6.0); WHITE BLOOD COUNT (AUTO) 5.6 K/uL (4.3-11.0)
[2021-08-18 08:03] VITALS: BP 118/58
[2021-08-18] MEDS: BACLOFEN (10 MG) 10 MG TABLET GT SCH (08:05)
[2021-08-18] MEDS: LORATADINE 10 MG TABLET GT SCH (08:05)
[2021-08-18] MEDS: PANTOPRAZOLE 40 MG/PACK PACK GT SCH (08:05)
[2021-08-18] MEDS: HYDROCODONE/APAP 5/325MG TABLET GT SCH (08:06)
[2021-08-18] MEDS: BICALUTAMIDE 50 MG TABLET GT SCH (08:06)
[2021-08-18] MEDS: POTASSIUM CHLORIDE 20 MEQ POWDER PACKET GT SCH (08:06)
[2021-08-18] MEDS: FOLIC ACID 1 MG TABLET GT SCH (08:06)
[2021-08-18] MEDS: PYRIDOXINE HCL 50 MG TABLET GT SCH (08:06)
[2021-08-18] MEDS: ENOXAPARIN SODIUM 40 MG/0.4 ML DISP.SYRIN SQ SCH (08:07)
[2021-08-18] MEDS: TIMOLOL -XE 0.5% 5 ML BOTTLE EACHEYE SCH ×2 (08:07→17:08)
[2021-08-18] MEDS: FERROUS SULFATE - FOR SA ONLY 330 MG/7.5 ML UDC GT SCH ×2 (08:07→17:08)
[2021-08-18] MEDS: DOCUSATE SODIUM LIQ 100 MG/10 ML UDC GT SCH ×2 (08:07→21:24)
[2021-08-18] MEDS: PROSOURCE / PROSTAT (PYXIS) 30 ML UDC GT SCH ×3 (08:08→17:08)
[2021-08-18] MEDS: MULTIVIT W/MINERALS 1 TAB TABLET GT SCH (08:08)
[2021-08-18] MEDS: POVIDONE-IODINE OINT 28.4 GM TUBE TP SCH ×9 (08:09→08:10)
[2021-08-18] MEDS: DAKINS HALF STRENGTH (0.25%) 480 ML BOTTLE TOP SCH (08:09)
[2021-08-18] MEDS: VITAMINS A AND D 56.7 GM TUBE TP SCH (08:10)
[2021-08-18] MEDS: Z GUARD REMEDY 2 OZ OINT TP SCH ×2 (08:10→21:25)
[2021-08-18] MEDS: Z GUARD REMEDY 4 OZ OINT TP SCH ×2 (08:10→21:25)
[2021-08-18] MEDS: HYDROGEN PEROXIDE 480 ML BOTTLE TP SCH ×2 (09:13→20:16)
[2021-08-18 10:00] VITALS: BP 118/58
[2021-08-18 12:21] VITALS: BP 122/64
[2021-08-18] MEDS: ACETAMINOPHEN 650 MG/20.3 ML UDC GT PRN (19:24)
[2021-08-18 20:10] VITALS: BP 105/59
[2021-08-18] MEDS: LATANOPROST EYE DROP 0.005% 2.5 ML BOTTLE EACHEYE SCH (21:25)
[2021-08-18 22:00] VITALS: BP 105/59
[2021-08-19] MEDS: IPRATROPIUM NEB FS 0.5 MG/2.5 ML AMPUL.NEB NEB SCH ×4 (01:59→19:48)
[2021-08-19] MEDS: ALBUTEROL FS 2.5 MG/0.5 ML VIAL.NEB NEB SCH ×4 (01:59→19:48)
[2021-08-19] MEDS: FLUDROCORTISONE 0.1 MG TABLET GT SCH ×4 (05:29→23:25)
[2021-08-19] MEDS: POLYVINYL ALCOHOL 15 ML BOTTLE EACHEYE SCH ×4 (05:29→23:25)
[2021-08-19] MEDS: MAGNESIUM HYDROXIDE 30 ML UDC GT PRN (07:04)
[2021-08-19 07:59] VITALS: BP 110/62
[2021-08-19] MEDS: HYDROGEN PEROXIDE 480 ML BOTTLE TP SCH ×2 (09:00→20:40)
[2021-08-19] MEDS: BACLOFEN (10 MG) 10 MG TABLET GT SCH (09:22)
[2021-08-19] MEDS: POTASSIUM CHLORIDE 20 MEQ POWDER PACKET GT SCH (09:22)
[2021-08-19] MEDS: BICALUTAMIDE 50 MG TABLET GT SCH (09:22)
[2021-08-19] MEDS: LORATADINE 10 MG TABLET GT SCH (09:22)
[2021-08-19] MEDS: FERROUS SULFATE - FOR SA ONLY 330 MG/7.5 ML UDC GT SCH ×2 (09:22→17:52)
[2021-08-19] MEDS: DOCUSATE SODIUM LIQ 100 MG/10 ML UDC GT SCH ×2 (09:22→20:51)
[2021-08-19] MEDS: FOLIC ACID 1 MG TABLET GT SCH (09:22)
[2021-08-19] MEDS: TIMOLOL -XE 0.5% 5 ML BOTTLE EACHEYE SCH ×2 (09:22→17:52)
[2021-08-19] MEDS: MULTIVIT W/MINERALS 1 TAB TABLET GT SCH (09:23)
[2021-08-19] MEDS: PANTOPRAZOLE 40 MG/PACK PACK GT SCH (09:23)
[2021-08-19] MEDS: PYRIDOXINE HCL 50 MG TABLET GT SCH (09:23)
[2021-08-19] MEDS: ENOXAPARIN SODIUM 40 MG/0.4 ML DISP.SYRIN SQ SCH (09:23)
[2021-08-19] MEDS: HYDROCODONE/APAP 5/325MG TABLET GT SCH (09:23)
[2021-08-19] MEDS: PROSOURCE / PROSTAT (PYXIS) 30 ML UDC GT SCH ×3 (09:23→17:52)
[2021-08-19] MEDS: POVIDONE-IODINE OINT 28.4 GM TUBE TP SCH ×9 (09:24→09:25)
[2021-08-19] MEDS: DAKINS HALF STRENGTH (0.25%) 480 ML BOTTLE TOP SCH (09:24)
[2021-08-19] MEDS: Z GUARD REMEDY 2 OZ OINT TP SCH ×2 (09:25→20:51)
[2021-08-19] MEDS: Z GUARD REMEDY 4 OZ OINT TP SCH ×2 (09:25→20:52)
[2021-08-19] MEDS: VITAMINS A AND D 56.7 GM TUBE TP SCH (09:25)
--- NOTE | 2021-08-19 10:20 | NUR ---
Virtual rounds done by ANGELLA Porras, no new order given.
[2021-08-19 12:48] VITALS: BP 118/66
[2021-08-19] MEDS: NEPRO 1,000 ML BOTTLE GT PRN (18:53)
[2021-08-19 19:46] VITALS: BP 153/86
[2021-08-19] MEDS: LATANOPROST EYE DROP 0.005% 2.5 ML BOTTLE EACHEYE SCH (21:01)
[2021-08-19] MEDS: ACETAMINOPHEN 650 MG/20.3 ML UDC GT PRN (21:03)
[2021-08-20 00:10] VITALS: BP 96/58
[2021-08-20] MEDS: ALBUTEROL FS 2.5 MG/0.5 ML VIAL.NEB NEB SCH ×4 (01:25→19:50)
[2021-08-20] MEDS: IPRATROPIUM NEB FS 0.5 MG/2.5 ML AMPUL.NEB NEB SCH ×4 (01:25→19:50)
[2021-08-20] MEDS: POLYVINYL ALCOHOL 15 ML BOTTLE EACHEYE SCH ×4 (05:11→23:26)
[2021-08-20] MEDS: FLUDROCORTISONE 0.1 MG TABLET GT SCH ×4 (05:11→23:26)
[2021-08-20 07:17] VITALS: BP 144/81
[2021-08-20] MEDS: HYDROGEN PEROXIDE 480 ML BOTTLE TP SCH ×2 (09:00→21:00)
[2021-08-20] MEDS: TIMOLOL -XE 0.5% 5 ML BOTTLE EACHEYE SCH ×2 (09:03→17:50)
[2021-08-20] MEDS: LORATADINE 10 MG TABLET GT SCH (09:03)
[2021-08-20] MEDS: BICALUTAMIDE 50 MG TABLET GT SCH (09:03)
[2021-08-20] MEDS: HYDROCODONE/APAP 5/325MG TABLET GT SCH (09:04)
[2021-08-20] MEDS: MULTIVIT W/MINERALS 1 TAB TABLET GT SCH (09:04)
[2021-08-20] MEDS: FERROUS SULFATE - FOR SA ONLY 330 MG/7.5 ML UDC GT SCH ×2 (09:04→17:50)
[2021-08-20] MEDS: PROSOURCE / PROSTAT (PYXIS) 30 ML UDC GT SCH ×3 (09:04→17:50)
[2021-08-20] MEDS: POTASSIUM CHLORIDE 20 MEQ POWDER PACKET GT SCH (09:04)
[2021-08-20] MEDS: FOLIC ACID 1 MG TABLET GT SCH (09:04)
[2021-08-20] MEDS: BACLOFEN (10 MG) 10 MG TABLET GT SCH (09:04)
[2021-08-20] MEDS: PYRIDOXINE HCL 50 MG TABLET GT SCH (09:04)
[2021-08-20] MEDS: PANTOPRAZOLE 40 MG/PACK PACK GT SCH (09:04)
[2021-08-20] MEDS: DOCUSATE SODIUM LIQ 100 MG/10 ML UDC GT SCH ×2 (09:04→20:52)
[2021-08-20] MEDS: ENOXAPARIN SODIUM 40 MG/0.4 ML DISP.SYRIN SQ SCH (09:04)
[2021-08-20] MEDS: Z GUARD REMEDY 2 OZ OINT TP SCH ×2 (11:00→20:52)
[2021-08-20] MEDS: POVIDONE-IODINE OINT 28.4 GM TUBE TP SCH ×9 (11:00)
[2021-08-20] MEDS: VITAMINS A AND D 56.7 GM TUBE TP SCH (11:00)
[2021-08-20] MEDS: Z GUARD REMEDY 4 OZ OINT TP SCH ×2 (11:00→20:52)
[2021-08-20] MEDS: DAKINS HALF STRENGTH (0.25%) 480 ML BOTTLE TOP SCH (11:00)
[2021-08-20 12:25] VITALS: BP 128/76
--- NOTE | 2021-08-20 14:43 | NUR ---
INTERDISCIPLINARY PLAN OF CARE CONFERENCE took place today. The patients responsible green party/Shae Jauregui did not participate. Dr. Sullivan and Interdisciplinary team discussed the plan of care in detail. Current orders as well as treatments, medications, lab results were reviewed. Result for Covid-19 test done on 08/16/21 still pending, no noted Covid-19 related symptoms.
--- NOTE | 2021-08-20 14:43 | NUR ---
Spoke to the sister of Too, She doesn't know how to do the Facetime .
--- NOTE | 2021-08-20 15:38 | NUR ---
Monthly progress notes. Resident remain the same, unable to follow simple command.Not responding to tactile stimuli.Has an episodes of eye opening but does not track at this time.He received daily visits for sensory stimulation, music, TV, hand massage, and reality orientation. These activities will be provided as needed.
[2021-08-20 19:42] VITALS: BP 131/79
[2021-08-20] MEDS: LATANOPROST EYE DROP 0.005% 2.5 ML BOTTLE EACHEYE SCH (21:08)
[2021-08-21] MEDS: ALBUTEROL FS 2.5 MG/0.5 ML VIAL.NEB NEB SCH ×4 (02:12→19:53)
[2021-08-21] MEDS: IPRATROPIUM NEB FS 0.5 MG/2.5 ML AMPUL.NEB NEB SCH ×4 (02:12→19:53)
[2021-08-21] MEDS: FLUDROCORTISONE 0.1 MG TABLET GT SCH ×4 (05:05→23:24)
[2021-08-21] MEDS: NEPRO 1,000 ML BOTTLE GT PRN (05:05)
[2021-08-21] MEDS: POLYVINYL ALCOHOL 15 ML BOTTLE EACHEYE SCH ×4 (05:05→23:24)
[2021-08-21] MEDS: MAGNESIUM HYDROXIDE 30 ML UDC GT PRN (05:05)
--- NOTE | 2021-08-21 05:22 | NUR ---
Discontinue PICC line ,not in use. Completed IV antibiotic.
[2021-08-21 07:33] VITALS: BP 157/99
[2021-08-21] MEDS: DAKINS HALF STRENGTH (0.25%) 480 ML BOTTLE TOP SCH (09:00)
[2021-08-21] MEDS: POVIDONE-IODINE OINT 28.4 GM TUBE TP SCH ×9 (09:00)
[2021-08-21] MEDS: HYDROGEN PEROXIDE 480 ML BOTTLE TP SCH ×2 (09:00→21:07)
[2021-08-21] MEDS: TIMOLOL -XE 0.5% 5 ML BOTTLE EACHEYE SCH ×2 (09:32→17:13)
[2021-08-21] MEDS: DOCUSATE SODIUM LIQ 100 MG/10 ML UDC GT SCH ×2 (09:35→20:49)
[2021-08-21] MEDS: FERROUS SULFATE - FOR SA ONLY 330 MG/7.5 ML UDC GT SCH ×2 (09:35→17:13)
[2021-08-21] MEDS: PROSOURCE / PROSTAT (PYXIS) 30 ML UDC GT SCH ×3 (09:35→17:13)
[2021-08-21] MEDS: MULTIVIT W/MINERALS 1 TAB TABLET GT SCH (09:36)
[2021-08-21] MEDS: ENOXAPARIN SODIUM 40 MG/0.4 ML DISP.SYRIN SQ SCH (09:37)
[2021-08-21] MEDS: BACLOFEN (10 MG) 10 MG TABLET GT SCH (09:39)
[2021-08-21] MEDS: HYDROCODONE/APAP 5/325MG TABLET GT SCH (09:39)
[2021-08-21] MEDS: PANTOPRAZOLE 40 MG/PACK PACK GT SCH (09:39)
[2021-08-21] MEDS: BICALUTAMIDE 50 MG TABLET GT SCH (09:40)
[2021-08-21] MEDS: LORATADINE 10 MG TABLET GT SCH (09:40)
[2021-08-21] MEDS: FOLIC ACID 1 MG TABLET GT SCH (09:40)
[2021-08-21] MEDS: POTASSIUM CHLORIDE 20 MEQ POWDER PACKET GT SCH (09:40)
[2021-08-21] MEDS: VITAMINS A AND D 56.7 GM TUBE TP SCH (09:42)
[2021-08-21] MEDS: Z GUARD REMEDY 2 OZ OINT TP SCH ×2 (09:42→20:49)
[2021-08-21] MEDS: Z GUARD REMEDY 4 OZ OINT TP SCH ×2 (09:42→20:49)
[2021-08-21] MEDS: PYRIDOXINE HCL 50 MG TABLET GT SCH (09:42)
[2021-08-21 13:24] VITALS: BP 142/69
[2021-08-21 20:02] VITALS: BP 117/68
[2021-08-21] MEDS: LATANOPROST EYE DROP 0.005% 2.5 ML BOTTLE EACHEYE SCH (21:10)
[2021-08-22 00:06] VITALS: BP 130/57
[2021-08-22] MEDS: IPRATROPIUM NEB FS 0.5 MG/2.5 ML AMPUL.NEB NEB SCH ×4 (02:14→19:04)
[2021-08-22] MEDS: ALBUTEROL FS 2.5 MG/0.5 ML VIAL.NEB NEB SCH ×4 (02:14→19:04)
[2021-08-22] MEDS: POLYVINYL ALCOHOL 15 ML BOTTLE EACHEYE SCH ×3 (05:22→18:08)
[2021-08-22] MEDS: FLUDROCORTISONE 0.1 MG TABLET GT SCH ×3 (05:22→18:08)
[2021-08-22] MEDS: NEPRO 1,000 ML BOTTLE GT PRN ×2 (05:25→18:13)
[2021-08-22] MEDS: ACETAMINOPHEN 650 MG/20 ML UDC- SA PATIENTS-PAIN ONLY GT PRN (05:26)
[2021-08-22 07:17] VITALS: BP 136/76
[2021-08-22] MEDS: HYDROGEN PEROXIDE 480 ML BOTTLE TP SCH ×2 (08:14→20:09)
[2021-08-22] MEDS: POVIDONE-IODINE OINT 28.4 GM TUBE TP SCH ×9 (09:00→10:41)
[2021-08-22] MEDS: FOLIC ACID 1 MG TABLET GT SCH (09:40)
[2021-08-22] MEDS: FERROUS SULFATE - FOR SA ONLY 330 MG/7.5 ML UDC GT SCH ×2 (09:40→13:25)
[2021-08-22] MEDS: DOCUSATE SODIUM LIQ 100 MG/10 ML UDC GT SCH ×2 (09:40→21:27)
[2021-08-22] MEDS: BACLOFEN (10 MG) 10 MG TABLET GT SCH (09:40)
[2021-08-22] MEDS: TIMOLOL -XE 0.5% 5 ML BOTTLE EACHEYE SCH ×2 (09:40→13:24)
[2021-08-22] MEDS: LORATADINE 10 MG TABLET GT SCH (09:40)
[2021-08-22] MEDS: BICALUTAMIDE 50 MG TABLET GT SCH (09:40)
[2021-08-22] MEDS: POTASSIUM CHLORIDE 20 MEQ POWDER PACKET GT SCH (09:40)
[2021-08-22] MEDS: HYDROCODONE/APAP 5/325MG TABLET GT SCH (09:41)
[2021-08-22] MEDS: PYRIDOXINE HCL 50 MG TABLET GT SCH (09:41)
[2021-08-22] MEDS: PROSOURCE / PROSTAT (PYXIS) 30 ML UDC GT SCH ×3 (09:41→13:24)
[2021-08-22] MEDS: MULTIVIT W/MINERALS 1 TAB TABLET GT SCH (09:41)
[2021-08-22] MEDS: PANTOPRAZOLE 40 MG/PACK PACK GT SCH (09:41)
[2021-08-22] MEDS: ENOXAPARIN SODIUM 40 MG/0.4 ML DISP.SYRIN SQ SCH (09:41)
[2021-08-22] MEDS: DAKINS HALF STRENGTH (0.25%) 480 ML BOTTLE TOP SCH (10:41)
[2021-08-22] MEDS: Z GUARD REMEDY 4 OZ OINT TP SCH ×2 (10:41→21:27)
[2021-08-22] MEDS: VITAMINS A AND D 56.7 GM TUBE TP SCH (10:41)
[2021-08-22] MEDS: Z GUARD REMEDY 2 OZ OINT TP SCH ×2 (10:41→21:27)
[2021-08-22 13:44] VITALS: BP 129/74
--- NOTE | 2021-08-22 14:20 | NUR ---
Virtual rounds done by LIP READING TEACHER Jennifer Porras, informed about low urine output and increasing generalized edema, gave order to have PICC line nurse insert midline for possible diuretic therapy. She said she will review meds and will call back for order.
--- NOTE | 2021-08-22 17:30 | NUR ---
Midline inserted in right upper arm, G-18 by PICC line nurse. Patient tolerated procedure, with good blood return.
--- NOTE | 2021-08-22 18:10 | NUR ---
Received orders form ANGELLA Porras to start Bumex 1 mg IV QD x 3 days for edema and BMP on 08/24/21.
--- NOTE | 2021-08-22 19:00 | NUR ---
Received a call from [facility] pharmacist Keshia that Bumex IV will not be available until Monday. Asked Jennifer Vern if she wants to change it to Lasix IV instead, she said okay to change to Lasix 40 mg IV qD x 3 days. Shae Jauregui ( Sister) informed of new orders. Dr. Santillan informed of Jennifer's order. Stable vital signs, no signs of distress, no fever. Will continue to monitor.
[2021-08-22] MEDS: FUROSEMIDE 40 MG/4 ML VIAL IV SCH (20:00)
--- NOTE | 2021-08-22 20:00 | NUR ---
RN NOTES Received pt in stable condition, with generalized edema and low urine output. Lasix 40 mg IV given as ordered. No A/R noted. Will continue to monitor.
[2021-08-22 20:37] VITALS: BP 134/79
[2021-08-22] MEDS: LATANOPROST EYE DROP 0.005% 2.5 ML BOTTLE EACHEYE SCH (21:27)
[2021-08-23] MEDS: POLYVINYL ALCOHOL 15 ML BOTTLE EACHEYE SCH ×4 (00:30→17:14)
[2021-08-23] MEDS: FLUDROCORTISONE 0.1 MG TABLET GT SCH ×4 (00:30→17:15)
[2021-08-23] MEDS: ALBUTEROL FS 2.5 MG/0.5 ML VIAL.NEB NEB SCH ×4 (01:05→20:13)
[2021-08-23] MEDS: IPRATROPIUM NEB FS 0.5 MG/2.5 ML AMPUL.NEB NEB SCH ×4 (01:05→20:13)
--- NOTE | 2021-08-23 06:00 | NUR ---
RN NOTES Pt in stable condition. Urine output 800ml. Will continue to monitor.
[2021-08-23] MEDS: LORATADINE 10 MG TABLET GT SCH (08:23)
[2021-08-23] MEDS: BICALUTAMIDE 50 MG TABLET GT SCH (08:23)
[2021-08-23] MEDS: FOLIC ACID 1 MG TABLET GT SCH (08:23)
[2021-08-23] MEDS: PANTOPRAZOLE 40 MG/PACK PACK GT SCH (08:23)
[2021-08-23] MEDS: BACLOFEN (10 MG) 10 MG TABLET GT SCH (08:23)
[2021-08-23] MEDS: PYRIDOXINE HCL 50 MG TABLET GT SCH (08:23)
[2021-08-23] MEDS: POTASSIUM CHLORIDE 20 MEQ POWDER PACKET GT SCH (08:25)
[2021-08-23] MEDS: PROSOURCE / PROSTAT (PYXIS) 30 ML UDC GT SCH ×3 (08:25→17:13)
[2021-08-23] MEDS: HYDROCODONE/APAP 5/325MG TABLET GT SCH (08:26)
[2021-08-23] MEDS: MULTIVIT W/MINERALS 1 TAB TABLET GT SCH (08:27)
[2021-08-23] MEDS: DOCUSATE SODIUM LIQ 100 MG/10 ML UDC GT SCH ×2 (08:29→21:15)
[2021-08-23] MEDS: FERROUS SULFATE - FOR SA ONLY 330 MG/7.5 ML UDC GT SCH ×2 (08:29→17:13)
[2021-08-23 08:38] VITALS: BP 108/75
[2021-08-23] MEDS: FUROSEMIDE 40 MG/4 ML VIAL IV SCH (08:51)
[2021-08-23] MEDS: ENOXAPARIN SODIUM 40 MG/0.4 ML DISP.SYRIN SQ SCH (08:51)
[2021-08-23] MEDS: DAKINS HALF STRENGTH (0.25%) 480 ML BOTTLE TOP SCH (08:52)
[2021-08-23] MEDS: HYDROGEN PEROXIDE 480 ML BOTTLE TP SCH ×2 (08:52→21:00)
[2021-08-23] MEDS: POVIDONE-IODINE OINT 28.4 GM TUBE TP SCH ×9 (08:52)
[2021-08-23] MEDS: Z GUARD REMEDY 4 OZ OINT TP SCH ×2 (09:00→21:15)
[2021-08-23] MEDS: TIMOLOL -XE 0.5% 5 ML BOTTLE EACHEYE SCH ×2 (09:00→17:13)
[2021-08-23] MEDS: Z GUARD REMEDY 2 OZ OINT TP SCH ×2 (09:00→21:15)
[2021-08-23] MEDS: VITAMINS A AND D 56.7 GM TUBE TP SCH (09:00)
[2021-08-23 13:19] VITALS: BP 119/78
[2021-08-23 20:24] VITALS: BP 123/54
[2021-08-23] MEDS: LATANOPROST EYE DROP 0.005% 2.5 ML BOTTLE EACHEYE SCH (21:15)
[2021-08-24] MEDS: POLYVINYL ALCOHOL 15 ML BOTTLE EACHEYE SCH ×5 (00:06→23:45)
[2021-08-24] MEDS: FLUDROCORTISONE 0.1 MG TABLET GT SCH ×5 (00:06→23:45)
[2021-08-24] MEDS: ALBUTEROL FS 2.5 MG/0.5 ML VIAL.NEB NEB SCH ×4 (02:18→20:05)
[2021-08-24] MEDS: IPRATROPIUM NEB FS 0.5 MG/2.5 ML AMPUL.NEB NEB SCH ×4 (02:18→20:05)
[2021-08-24 07:26] VITALS: BP 97/59
[2021-08-24 08:31] LABS: CALCIUM, SERUM 9.5 mg/dL (8.5-10.1); POTASSIUM 5.1 mmol/L (3.5-5.1)
[2021-08-24] MEDS: VITAMINS A AND D 56.7 GM TUBE TP SCH (09:00)
[2021-08-24] MEDS: DAKINS HALF STRENGTH (0.25%) 480 ML BOTTLE TOP SCH (09:00)
[2021-08-24] MEDS: PANTOPRAZOLE 40 MG/PACK PACK GT SCH (09:00)
[2021-08-24] MEDS: FUROSEMIDE 40 MG/4 ML VIAL IV SCH (09:00)
[2021-08-24] MEDS: PYRIDOXINE HCL 50 MG TABLET GT SCH (09:00)
[2021-08-24] MEDS: HYDROGEN PEROXIDE 480 ML BOTTLE TP SCH ×2 (09:00→20:05)
[2021-08-24] MEDS: HYDROCODONE/APAP 5/325MG TABLET GT SCH (09:00)
[2021-08-24] MEDS: Z GUARD REMEDY 2 OZ OINT TP SCH ×2 (09:00→21:19)
[2021-08-24] MEDS: MULTIVIT W/MINERALS 1 TAB TABLET GT SCH (09:00)
[2021-08-24] MEDS: POVIDONE-IODINE OINT 28.4 GM TUBE TP SCH ×9 (09:00)
[2021-08-24] MEDS: ENOXAPARIN SODIUM 40 MG/0.4 ML DISP.SYRIN SQ SCH (09:00)
[2021-08-24] MEDS: BACLOFEN (10 MG) 10 MG TABLET GT SCH (09:00)
[2021-08-24] MEDS: Z GUARD REMEDY 4 OZ OINT TP SCH ×2 (09:00→21:19)
[2021-08-24] MEDS: PROSOURCE / PROSTAT (PYXIS) 30 ML UDC GT SCH ×3 (09:00→16:26)
[2021-08-24] MEDS: TIMOLOL -XE 0.5% 5 ML BOTTLE EACHEYE SCH ×2 (09:54→16:26)
[2021-08-24] MEDS: BICALUTAMIDE 50 MG TABLET GT SCH (09:56)
[2021-08-24] MEDS: FERROUS SULFATE - FOR SA ONLY 330 MG/7.5 ML UDC GT SCH ×2 (09:57→16:26)
[2021-08-24] MEDS: DOCUSATE SODIUM LIQ 100 MG/10 ML UDC GT SCH ×2 (09:57→21:19)
[2021-08-24] MEDS: LORATADINE 10 MG TABLET GT SCH (09:57)
[2021-08-24] MEDS: FOLIC ACID 1 MG TABLET GT SCH (09:59)
[2021-08-24] MEDS: POTASSIUM CHLORIDE 20 MEQ POWDER PACKET GT SCH (09:59)
[2021-08-24 12:11] VITALS: BP 115/77
--- NOTE | 2021-08-24 12:30 | NUR ---
Virtual rounds done by ANGELLA Porras, reviewed BMP result and patient still with edema, urine output adequate, draining yellow urine no hematuria. New order given to extend Lasix x 2 more days. Order carried out.
--- NOTE | 2021-08-24 14:22 | NUR ---
Seen and examined by Dr. Santillan, made aware that patient is receiving Lasix 40 mg. IVP for edema. no new order given. Resident's sister Shae informed. Appreciated the call.
[2021-08-24] MEDS: NEPRO 1,000 ML BOTTLE GT PRN (15:01)
[2021-08-24 20:17] VITALS: BP 126/69
[2021-08-24] MEDS: LATANOPROST EYE DROP 0.005% 2.5 ML BOTTLE EACHEYE SCH (21:19)
[2021-08-25] MEDS: ALBUTEROL FS 2.5 MG/0.5 ML VIAL.NEB NEB SCH ×4 (00:46→19:21)
[2021-08-25] MEDS: IPRATROPIUM NEB FS 0.5 MG/2.5 ML AMPUL.NEB NEB SCH ×4 (00:46→19:21)
[2021-08-25] MEDS: POLYVINYL ALCOHOL 15 ML BOTTLE EACHEYE SCH ×3 (05:50→17:25)
[2021-08-25] MEDS: FLUDROCORTISONE 0.1 MG TABLET GT SCH ×3 (05:50→17:26)
[2021-08-25 07:45] VITALS: BP 98/62
[2021-08-25] MEDS: POVIDONE-IODINE OINT 28.4 GM TUBE TP SCH ×9 (09:00)
[2021-08-25] MEDS: FUROSEMIDE 40 MG/4 ML VIAL IV SCH (09:00)
[2021-08-25] MEDS: VITAMINS A AND D 56.7 GM TUBE TP SCH (09:00)
[2021-08-25] MEDS: DAKINS HALF STRENGTH (0.25%) 480 ML BOTTLE TOP SCH (09:00)
[2021-08-25] MEDS: FOLIC ACID 1 MG TABLET GT SCH (09:00)
[2021-08-25] MEDS: Z GUARD REMEDY 4 OZ OINT TP SCH ×2 (09:00→21:25)
[2021-08-25] MEDS: Z GUARD REMEDY 2 OZ OINT TP SCH ×2 (09:00→21:25)
[2021-08-25] MEDS: PYRIDOXINE HCL 50 MG TABLET GT SCH (09:32)
[2021-08-25] MEDS: PROSOURCE / PROSTAT (PYXIS) 30 ML UDC GT SCH ×3 (09:32→17:25)
[2021-08-25] MEDS: HYDROCODONE/APAP 5/325MG TABLET GT SCH (09:32)
[2021-08-25] MEDS: DOCUSATE SODIUM LIQ 100 MG/10 ML UDC GT SCH ×2 (09:32→21:25)
[2021-08-25] MEDS: PANTOPRAZOLE 40 MG/PACK PACK GT SCH (09:32)
[2021-08-25] MEDS: BACLOFEN (10 MG) 10 MG TABLET GT SCH (09:32)
[2021-08-25] MEDS: TIMOLOL -XE 0.5% 5 ML BOTTLE EACHEYE SCH ×2 (09:32→17:25)
[2021-08-25] MEDS: HYDROGEN PEROXIDE 480 ML BOTTLE TP SCH ×2 (09:32→21:51)
[2021-08-25] MEDS: LORATADINE 10 MG TABLET GT SCH (09:32)
[2021-08-25] MEDS: BICALUTAMIDE 50 MG TABLET GT SCH (09:32)
[2021-08-25] MEDS: POTASSIUM CHLORIDE 20 MEQ POWDER PACKET GT SCH (09:32)
[2021-08-25] MEDS: MULTIVIT W/MINERALS 1 TAB TABLET GT SCH (09:32)
[2021-08-25] MEDS: FERROUS SULFATE - FOR SA ONLY 330 MG/7.5 ML UDC GT SCH ×2 (09:32→17:25)
[2021-08-25] MEDS: ENOXAPARIN SODIUM 40 MG/0.4 ML DISP.SYRIN SQ SCH (09:33)
[2021-08-25 13:39] VITALS: BP 92/71
[2021-08-25 19:49] VITALS: BP 106/53
[2021-08-25] MEDS: LATANOPROST EYE DROP 0.005% 2.5 ML BOTTLE EACHEYE SCH (21:25)
[2021-08-26] MEDS: POLYVINYL ALCOHOL 15 ML BOTTLE EACHEYE SCH ×5 (00:41→23:49)
[2021-08-26] MEDS: FLUDROCORTISONE 0.1 MG TABLET GT SCH ×5 (00:41→23:49)
[2021-08-26] MEDS: ACETAMINOPHEN 650 MG/20 ML UDC- SA PATIENTS-PAIN ONLY GT PRN (00:44)
[2021-08-26] MEDS: ALBUTEROL FS 2.5 MG/0.5 ML VIAL.NEB NEB SCH ×4 (01:40→19:04)
[2021-08-26] MEDS: IPRATROPIUM NEB FS 0.5 MG/2.5 ML AMPUL.NEB NEB SCH ×4 (01:40→19:04)
[2021-08-26] MEDS: NEPRO 1,000 ML BOTTLE GT PRN (05:31)
[2021-08-26 07:47] VITALS: BP 138/79
[2021-08-26] MEDS: HYDROGEN PEROXIDE 480 ML BOTTLE TP SCH ×2 (08:49→20:42)
[2021-08-26] MEDS: MULTIVIT W/MINERALS 1 TAB TABLET GT SCH (09:00)
[2021-08-26] MEDS: BICALUTAMIDE 50 MG TABLET GT SCH (09:00)
[2021-08-26] MEDS: LORATADINE 10 MG TABLET GT SCH (09:00)
[2021-08-26] MEDS: PYRIDOXINE HCL 50 MG TABLET GT SCH (09:00)
[2021-08-26] MEDS: VITAMINS A AND D 56.7 GM TUBE TP SCH (09:00)
[2021-08-26] MEDS: POTASSIUM CHLORIDE 20 MEQ POWDER PACKET GT SCH (09:00)
[2021-08-26] MEDS: Z GUARD REMEDY 4 OZ OINT TP SCH ×2 (09:00→20:20)
[2021-08-26] MEDS: HYDROCODONE/APAP 5/325MG TABLET GT SCH (09:00)
[2021-08-26] MEDS: FERROUS SULFATE - FOR SA ONLY 330 MG/7.5 ML UDC GT SCH ×2 (09:00→17:02)
[2021-08-26] MEDS: TIMOLOL -XE 0.5% 5 ML BOTTLE EACHEYE SCH ×2 (09:00→17:02)
[2021-08-26] MEDS: FOLIC ACID 1 MG TABLET GT SCH (09:00)
[2021-08-26] MEDS: POVIDONE-IODINE OINT 28.4 GM TUBE TP SCH ×9 (09:00)
[2021-08-26] MEDS: Z GUARD REMEDY 2 OZ OINT TP SCH ×2 (09:00→20:20)
[2021-08-26] MEDS: DOCUSATE SODIUM LIQ 100 MG/10 ML UDC GT SCH ×2 (09:00→20:20)
[2021-08-26] MEDS: DAKINS HALF STRENGTH (0.25%) 480 ML BOTTLE TOP SCH (09:00)
[2021-08-26] MEDS: ENOXAPARIN SODIUM 40 MG/0.4 ML DISP.SYRIN SQ SCH (09:00)
[2021-08-26] MEDS: PANTOPRAZOLE 40 MG/PACK PACK GT SCH (09:00)
[2021-08-26] MEDS: PROSOURCE / PROSTAT (PYXIS) 30 ML UDC GT SCH ×3 (09:00→17:02)
[2021-08-26] MEDS: BACLOFEN (10 MG) 10 MG TABLET GT SCH (09:00)
[2021-08-26] MEDS: FUROSEMIDE 40 MG/4 ML VIAL IV SCH (09:55)
--- NOTE | 2021-08-26 10:28 | NUR ---
Family Invite to IDT: [place] called the pt.'s sister, Shae and CM, Tinajaquelin and both agreed that Maciej participate in 08/27/2020 IDT Meeting. SW will follow up accordingly.
[2021-08-26 13:30] VITALS: BP 136/81
[2021-08-26 19:49] VITALS: BP 125/75
[2021-08-26] MEDS: LATANOPROST EYE DROP 0.005% 2.5 ML BOTTLE EACHEYE SCH (21:31)
[2021-08-26] MEDS: HYDROCODONE/APAP 5/325MG TABLET GT PRN (23:50)
[2021-08-27 00:06] VITALS: BP 114/62
[2021-08-27] MEDS: ALBUTEROL FS 2.5 MG/0.5 ML VIAL.NEB NEB SCH ×4 (01:43→20:16)
[2021-08-27] MEDS: IPRATROPIUM NEB FS 0.5 MG/2.5 ML AMPUL.NEB NEB SCH ×4 (01:43→20:16)
[2021-08-27] MEDS: POLYVINYL ALCOHOL 15 ML BOTTLE EACHEYE SCH ×4 (05:18→23:18)
[2021-08-27] MEDS: FLUDROCORTISONE 0.1 MG TABLET GT SCH ×4 (05:18→23:18)
[2021-08-27] MEDS: ACETAMINOPHEN 650 MG/20 ML UDC- SA PATIENTS-PAIN ONLY GT PRN ×2 (06:13→20:25)
[2021-08-27] MEDS: NEPRO 1,000 ML BOTTLE GT PRN (06:47)
[2021-08-27 08:23] VITALS: BP 96/52
[2021-08-27] MEDS: HYDROCODONE/APAP 5/325MG TABLET GT SCH (09:00)
[2021-08-27] MEDS: VITAMINS A AND D 56.7 GM TUBE TP SCH (09:00)
[2021-08-27] MEDS: DAKINS HALF STRENGTH (0.25%) 480 ML BOTTLE TOP SCH (09:00)
[2021-08-27] MEDS: TIMOLOL -XE 0.5% 5 ML BOTTLE EACHEYE SCH ×2 (09:00→17:04)
[2021-08-27] MEDS: POVIDONE-IODINE OINT 28.4 GM TUBE TP SCH ×9 (09:00)
[2021-08-27] MEDS: Z GUARD REMEDY 2 OZ OINT TP SCH ×2 (09:00→20:46)
[2021-08-27] MEDS: Z GUARD REMEDY 4 OZ OINT TP SCH ×2 (09:00→20:47)
[2021-08-27] MEDS: HYDROGEN PEROXIDE 480 ML BOTTLE TP SCH ×2 (09:13→20:46)
[2021-08-27] MEDS: BICALUTAMIDE 50 MG TABLET GT SCH (09:26)
[2021-08-27] MEDS: FOLIC ACID 1 MG TABLET GT SCH (09:26)
[2021-08-27] MEDS: LORATADINE 10 MG TABLET GT SCH (09:26)
[2021-08-27] MEDS: FERROUS SULFATE - FOR SA ONLY 330 MG/7.5 ML UDC GT SCH ×2 (09:26→17:04)
[2021-08-27] MEDS: POTASSIUM CHLORIDE 20 MEQ POWDER PACKET GT SCH (09:26)
[2021-08-27] MEDS: DOCUSATE SODIUM LIQ 100 MG/10 ML UDC GT SCH ×2 (09:26→20:46)
[2021-08-27] MEDS: PROSOURCE / PROSTAT (PYXIS) 30 ML UDC GT SCH ×3 (09:26→17:04)
[2021-08-27] MEDS: BACLOFEN (10 MG) 10 MG TABLET GT SCH (09:26)
[2021-08-27] MEDS: PYRIDOXINE HCL 50 MG TABLET GT SCH (09:29)
[2021-08-27] MEDS: PANTOPRAZOLE 40 MG/PACK PACK GT SCH (09:29)
[2021-08-27] MEDS: MULTIVIT W/MINERALS 1 TAB TABLET GT SCH (09:29)
[2021-08-27] MEDS: ENOXAPARIN SODIUM 40 MG/0.4 ML DISP.SYRIN SQ SCH (09:29)
[2021-08-27 12:27] VITALS: BP 101/65
--- NOTE | 2021-08-27 15:24 | NUR ---
Updated Visitation Guidelines & Facility Update: MAURICIO informed pt.'s responsible alliance party that, "MAURICIO Facility Update: A [facility] employee tested positive for COVID-19 this week. Residents and staff will continue receiving response testing. We will continue to implement [facility] infection control protocols and continue screening employees before every shift. [facility] continues to follow infection control protocols and screen our residents and staff daily for symptoms". MAURICIO also informed family about updated visitation guidelines: FOR EACH VISIT, Visitors should be permitted if they show proof of their fully vaccinated status AND regardless of vaccination status, must provide proof of either: A negative PCR test taken within 48 hours prior to entry OR A negative FDA-approved Antigen (rapid test) within 24 hours prior to entry *Visitors who visits for multiple consecutive days are required to show proof of a negative FDA-approved SARS-CoV-2 test at least every third day (E.G. test on day 1 day 4 day 7 an so on)
--- NOTE | 2021-08-27 16:11 | NUR ---
INTERDISCIPLINARY PLAN OF CARE CONFERENCE took place today. The patients Maciej CHARLTON [phone] participated via [address] Sullivan and Interdisciplinary team discussed the plan of care in detail. Current orders as well as treatments and medications were reviewed. Dr. Sullivan and IDT addressed CM questions.
[2021-08-27 19:59] VITALS: BP 101/63
[2021-08-27] MEDS: LATANOPROST EYE DROP 0.005% 2.5 ML BOTTLE EACHEYE SCH (21:21)
[2021-08-28 00:33] VITALS: BP 120/66
[2021-08-28] MEDS: IPRATROPIUM NEB FS 0.5 MG/2.5 ML AMPUL.NEB NEB SCH ×4 (02:05→20:08)
[2021-08-28] MEDS: ALBUTEROL FS 2.5 MG/0.5 ML VIAL.NEB NEB SCH ×4 (02:05→20:08)
[2021-08-28] MEDS: POLYVINYL ALCOHOL 15 ML BOTTLE EACHEYE SCH ×3 (05:20→17:05)
[2021-08-28] MEDS: FLUDROCORTISONE 0.1 MG TABLET GT SCH ×3 (05:20→17:06)
[2021-08-28 08:00] VITALS: BP 118/77
[2021-08-28] MEDS: Z GUARD REMEDY 2 OZ OINT TP SCH ×2 (09:00→21:24)
[2021-08-28] MEDS: Z GUARD REMEDY 4 OZ OINT TP SCH ×2 (09:00→21:25)
[2021-08-28] MEDS: POVIDONE-IODINE OINT 28.4 GM TUBE TP SCH ×9 (09:00)
[2021-08-28] MEDS: HYDROGEN PEROXIDE 480 ML BOTTLE TP SCH ×2 (09:00→21:00)
[2021-08-28] MEDS: DAKINS HALF STRENGTH (0.25%) 480 ML BOTTLE TOP SCH (09:00)
[2021-08-28] MEDS: VITAMINS A AND D 56.7 GM TUBE TP SCH (09:00)
[2021-08-28] MEDS: PROSOURCE / PROSTAT (PYXIS) 30 ML UDC GT SCH ×3 (09:19→16:45)
[2021-08-28] MEDS: TIMOLOL -XE 0.5% 5 ML BOTTLE EACHEYE SCH ×2 (09:19→16:45)
[2021-08-28] MEDS: PANTOPRAZOLE 40 MG/PACK PACK GT SCH (09:19)
[2021-08-28] MEDS: BICALUTAMIDE 50 MG TABLET GT SCH (09:19)
[2021-08-28] MEDS: FERROUS SULFATE - FOR SA ONLY 330 MG/7.5 ML UDC GT SCH ×2 (09:19→16:45)
[2021-08-28] MEDS: DOCUSATE SODIUM LIQ 100 MG/10 ML UDC GT SCH ×2 (09:19→21:24)
[2021-08-28] MEDS: ENOXAPARIN SODIUM 40 MG/0.4 ML DISP.SYRIN SQ SCH (09:20)
[2021-08-28] MEDS: MULTIVIT W/MINERALS 1 TAB TABLET GT SCH (09:20)
[2021-08-28] MEDS: FOLIC ACID 1 MG TABLET GT SCH (09:25)
[2021-08-28] MEDS: POTASSIUM CHLORIDE 20 MEQ POWDER PACKET GT SCH (09:25)
[2021-08-28] MEDS: LORATADINE 10 MG TABLET GT SCH (09:25)
[2021-08-28] MEDS: BACLOFEN (10 MG) 10 MG TABLET GT SCH (09:26)
[2021-08-28] MEDS: PYRIDOXINE HCL 50 MG TABLET GT SCH (09:28)
[2021-08-28] MEDS: HYDROCODONE/APAP 5/325MG TABLET GT SCH (09:28)
[2021-08-28 11:49] VITALS: BP 121/72
[2021-08-28] MEDS: NEPRO 1,000 ML BOTTLE GT PRN (12:46)
[2021-08-28] MEDS: ACETAMINOPHEN 650 MG/20 ML UDC- SA PATIENTS-PAIN ONLY GT PRN (17:06)
[2021-08-28 19:39] VITALS: BP 101/60
[2021-08-28] MEDS: LATANOPROST EYE DROP 0.005% 2.5 ML BOTTLE EACHEYE SCH (21:25)
[2021-08-29 00:14] VITALS: BP 99/67
[2021-08-29] MEDS: FLUDROCORTISONE 0.1 MG TABLET GT SCH ×5 (00:28→23:47)
[2021-08-29] MEDS: POLYVINYL ALCOHOL 15 ML BOTTLE EACHEYE SCH ×5 (00:28→23:47)
[2021-08-29] MEDS: IPRATROPIUM NEB FS 0.5 MG/2.5 ML AMPUL.NEB NEB SCH ×4 (02:20→19:30)
[2021-08-29] MEDS: ALBUTEROL FS 2.5 MG/0.5 ML VIAL.NEB NEB SCH ×4 (02:20→19:30)
[2021-08-29] MEDS: ACETAMINOPHEN 650 MG/20 ML UDC- SA PATIENTS-PAIN ONLY GT PRN (05:30)
[2021-08-29] MEDS: MAGNESIUM HYDROXIDE 30 ML UDC GT PRN (06:30)
[2021-08-29 08:31] VITALS: BP 135/66
[2021-08-29] MEDS: HYDROGEN PEROXIDE 480 ML BOTTLE TP SCH ×2 (09:00→19:31)
[2021-08-29] MEDS: POVIDONE-IODINE OINT 28.4 GM TUBE TP SCH ×9 (09:00)
[2021-08-29] MEDS: DAKINS HALF STRENGTH (0.25%) 480 ML BOTTLE TOP SCH (09:00)
[2021-08-29] MEDS: VITAMINS A AND D 56.7 GM TUBE TP SCH (09:00)
[2021-08-29] MEDS: Z GUARD REMEDY 4 OZ OINT TP SCH ×2 (09:00→20:46)
[2021-08-29] MEDS: Z GUARD REMEDY 2 OZ OINT TP SCH ×2 (09:00→20:46)
[2021-08-29] MEDS: TIMOLOL -XE 0.5% 5 ML BOTTLE EACHEYE SCH ×2 (09:15→16:48)
[2021-08-29] MEDS: FERROUS SULFATE - FOR SA ONLY 330 MG/7.5 ML UDC GT SCH ×2 (09:15→16:48)
[2021-08-29] MEDS: DOCUSATE SODIUM LIQ 100 MG/10 ML UDC GT SCH ×2 (09:15→20:46)
[2021-08-29] MEDS: POTASSIUM CHLORIDE 20 MEQ POWDER PACKET GT SCH (09:15)
[2021-08-29] MEDS: BICALUTAMIDE 50 MG TABLET GT SCH (09:19)
[2021-08-29] MEDS: ENOXAPARIN SODIUM 40 MG/0.4 ML DISP.SYRIN SQ SCH (09:19)
[2021-08-29] MEDS: LORATADINE 10 MG TABLET GT SCH (09:19)
[2021-08-29] MEDS: FOLIC ACID 1 MG TABLET GT SCH (09:19)
[2021-08-29] MEDS: BACLOFEN (10 MG) 10 MG TABLET GT SCH (09:20)
[2021-08-29] MEDS: HYDROCODONE/APAP 5/325MG TABLET GT SCH (09:22)
[2021-08-29] MEDS: PROSOURCE / PROSTAT (PYXIS) 30 ML UDC GT SCH ×3 (09:22→16:48)
[2021-08-29] MEDS: PYRIDOXINE HCL 50 MG TABLET GT SCH (09:23)
[2021-08-29] MEDS: MULTIVIT W/MINERALS 1 TAB TABLET GT SCH (09:23)
[2021-08-29] MEDS: PANTOPRAZOLE 40 MG/PACK PACK GT SCH (09:23)
--- NOTE | 2021-08-29 17:30 | NUR ---
Called patients' sister (Shae) and made aware that one patient tested positive so will test every patient to follow infection control procedure. Patients' aunt appreciative of the call. Patient still on quarantine x 14 days for possible exposure and still no visitation at this time. Reeducated staff regarding contact/droplet precautions and reinforced hand hygiene before and after care. Addendum: 08/29/21 at 1831 by KELVIN ZAMUDIO RN Patients' sister appreciative of the call.
[2021-08-29] MEDS: NEPRO 1,000 ML BOTTLE GT PRN (17:54)
[2021-08-29 20:34] VITALS: BP 140/77
[2021-08-29] MEDS: LATANOPROST EYE DROP 0.005% 2.5 ML BOTTLE EACHEYE SCH (21:23)
[2021-08-29] MEDS: HYDROCODONE/APAP 5/325MG TABLET GT PRN (21:28)
[2021-08-30] MEDS: IPRATROPIUM NEB FS 0.5 MG/2.5 ML AMPUL.NEB NEB SCH ×5 (02:28→19:27)
[2021-08-30] MEDS: ALBUTEROL FS 2.5 MG/0.5 ML VIAL.NEB NEB SCH ×5 (02:28→19:27)
[2021-08-30] MEDS: FLUDROCORTISONE 0.1 MG TABLET GT SCH ×4 (05:40→23:55)
[2021-08-30] MEDS: POLYVINYL ALCOHOL 15 ML BOTTLE EACHEYE SCH ×4 (05:40→23:55)
--- NOTE | 2021-08-30 06:07 | NUR ---
PATIENT RECEIVED ON TRACH TO VENT WITH SETTINGS OF AC 14, 450 Vt, 40%, +0. SUCTIONED FOR MINIMAL, THICK, WHITE SECRETIONS. GIVEN IN-LINE TREATMENT WITH NO ADVERSE REACTIONS. HOLD FIRST TREATMENT SCHEDULED DUE TO HR ABOVE NORMAL LIMITS. AMBU BAG AT BEDSIDE. VENT AND PULSE OXIMETER ALARMS AUDIBLE AND VISIBLE. VENT PLUGGED INTO RED OUTLET. Addendum: 08/30/21 at 0610 by JAKI PASCAL RT Amended: Links added.
[2021-08-30 07:28] VITALS: BP 115/70
[2021-08-30] MEDS: FOLIC ACID 1 MG TABLET GT SCH (09:00)
[2021-08-30] MEDS: POVIDONE-IODINE OINT 28.4 GM TUBE TP SCH ×9 (09:00)
[2021-08-30] MEDS: BICALUTAMIDE 50 MG TABLET GT SCH (09:00)
[2021-08-30] MEDS: LORATADINE 10 MG TABLET GT SCH (09:00)
[2021-08-30] MEDS: BACLOFEN (10 MG) 10 MG TABLET GT SCH (09:00)
[2021-08-30] MEDS: FERROUS SULFATE - FOR SA ONLY 330 MG/7.5 ML UDC GT SCH ×2 (09:00→17:01)
[2021-08-30] MEDS: DOCUSATE SODIUM LIQ 100 MG/10 ML UDC GT SCH ×2 (09:00→20:40)
[2021-08-30] MEDS: TIMOLOL -XE 0.5% 5 ML BOTTLE EACHEYE SCH ×2 (09:00→17:01)
[2021-08-30] MEDS: Z GUARD REMEDY 2 OZ OINT TP SCH ×2 (09:00→20:40)
[2021-08-30] MEDS: DAKINS HALF STRENGTH (0.25%) 480 ML BOTTLE TOP SCH (09:00)
[2021-08-30] MEDS: VITAMINS A AND D 56.7 GM TUBE TP SCH (09:00)
[2021-08-30] MEDS: POTASSIUM CHLORIDE 20 MEQ POWDER PACKET GT SCH (09:00)
[2021-08-30] MEDS: Z GUARD REMEDY 4 OZ OINT TP SCH ×2 (09:00→20:40)
[2021-08-30] MEDS: PROSOURCE / PROSTAT (PYXIS) 30 ML UDC GT SCH ×3 (09:01→17:01)
[2021-08-30] MEDS: MULTIVIT W/MINERALS 1 TAB TABLET GT SCH (09:01)
[2021-08-30] MEDS: PYRIDOXINE HCL 50 MG TABLET GT SCH (09:01)
[2021-08-30] MEDS: PANTOPRAZOLE 40 MG/PACK PACK GT SCH (09:01)
[2021-08-30] MEDS: HYDROCODONE/APAP 5/325MG TABLET GT SCH (09:01)
[2021-08-30] MEDS: ENOXAPARIN SODIUM 40 MG/0.4 ML DISP.SYRIN SQ SCH (09:02)
[2021-08-30] MEDS: HYDROGEN PEROXIDE 480 ML BOTTLE TP SCH ×2 (09:38→20:32)
[2021-08-30 09:58] LABS: CALCIUM, SERUM 10.1 mg/dL (8.5-10.1); CREATININE 0.9 mg/dL (0.6-1.3)
[2021-08-30 12:03] VITALS: BP 111/73
[2021-08-30 20:23] VITALS: BP 97/61
[2021-08-30] MEDS: LATANOPROST EYE DROP 0.005% 2.5 ML BOTTLE EACHEYE SCH (21:11)
[2021-08-31] MEDS: ALBUTEROL FS 2.5 MG/0.5 ML VIAL.NEB NEB SCH ×4 (00:37→19:05)
[2021-08-31] MEDS: IPRATROPIUM NEB FS 0.5 MG/2.5 ML AMPUL.NEB NEB SCH ×4 (00:37→19:05)
[2021-08-31] MEDS: POLYVINYL ALCOHOL 15 ML BOTTLE EACHEYE SCH ×3 (05:38→17:45)
[2021-08-31] MEDS: NEPRO 1,000 ML BOTTLE GT PRN (05:38)
[2021-08-31] MEDS: FLUDROCORTISONE 0.1 MG TABLET GT SCH ×3 (05:38→17:45)
[2021-08-31 08:02] VITALS: BP 87/59
[2021-08-31] MEDS: HYDROGEN PEROXIDE 480 ML BOTTLE TP SCH ×2 (08:58→19:13)
[2021-08-31] MEDS: TIMOLOL -XE 0.5% 5 ML BOTTLE EACHEYE SCH ×2 (09:00→17:44)
[2021-08-31] MEDS: FOLIC ACID 1 MG TABLET GT SCH (09:00)
[2021-08-31] MEDS: BACLOFEN (10 MG) 10 MG TABLET GT SCH (09:00)
[2021-08-31] MEDS: Z GUARD REMEDY 4 OZ OINT TP SCH ×2 (09:00→20:39)
[2021-08-31] MEDS: PANTOPRAZOLE 40 MG/PACK PACK GT SCH (09:00)
[2021-08-31] MEDS: DOCUSATE SODIUM LIQ 100 MG/10 ML UDC GT SCH ×2 (09:00→20:39)
[2021-08-31] MEDS: VITAMINS A AND D 56.7 GM TUBE TP SCH (09:00)
[2021-08-31] MEDS: FERROUS SULFATE - FOR SA ONLY 330 MG/7.5 ML UDC GT SCH ×2 (09:00→17:44)
[2021-08-31] MEDS: PROSOURCE / PROSTAT (PYXIS) 30 ML UDC GT SCH ×3 (09:00→17:44)
[2021-08-31] MEDS: DAKINS HALF STRENGTH (0.25%) 480 ML BOTTLE TOP SCH (09:00)
[2021-08-31] MEDS: POVIDONE-IODINE OINT 28.4 GM TUBE TP SCH ×9 (09:00)
[2021-08-31] MEDS: PYRIDOXINE HCL 50 MG TABLET GT SCH (09:00)
[2021-08-31] MEDS: HYDROCODONE/APAP 5/325MG TABLET GT SCH (09:00)
[2021-08-31] MEDS: BICALUTAMIDE 50 MG TABLET GT SCH (09:00)
[2021-08-31] MEDS: MULTIVIT W/MINERALS 1 TAB TABLET GT SCH (09:00)
[2021-08-31] MEDS: POTASSIUM CHLORIDE 20 MEQ POWDER PACKET GT SCH (09:00)
[2021-08-31] MEDS: ENOXAPARIN SODIUM 40 MG/0.4 ML DISP.SYRIN SQ SCH (09:00)
[2021-08-31] MEDS: LORATADINE 10 MG TABLET GT SCH (09:00)
[2021-08-31] MEDS: Z GUARD REMEDY 2 OZ OINT TP SCH ×2 (09:00→20:39)
[2021-08-31 12:30] VITALS: BP 101/59
--- NOTE | 2021-08-31 14:45 | NUR ---
SW emailed pt.'s sister, Shae reminding her to completed intake paperwork and send back.
--- NOTE | 2021-08-31 16:23 | NUR ---
Pt was seen via telemedicine/video call by ANGELLA Porras today. She is aware of pt's recent lab results and she ordered to do BMP on 09/06/20.
[2021-08-31 19:20] VITALS: BP 137/74
[2021-08-31] MEDS: LATANOPROST EYE DROP 0.005% 2.5 ML BOTTLE EACHEYE SCH (21:24)
[2021-09-01] MEDS: POLYVINYL ALCOHOL 15 ML BOTTLE EACHEYE SCH ×5 (00:25→23:25)
[2021-09-01] MEDS: FLUDROCORTISONE 0.1 MG TABLET GT SCH ×5 (00:25→23:25)
[2021-09-01] MEDS: ALBUTEROL FS 2.5 MG/0.5 ML VIAL.NEB NEB SCH ×4 (02:11→19:50)
[2021-09-01] MEDS: IPRATROPIUM NEB FS 0.5 MG/2.5 ML AMPUL.NEB NEB SCH ×4 (02:11→19:50)
[2021-09-01 07:52] VITALS: BP 126/61
[2021-09-01] MEDS: HYDROGEN PEROXIDE 480 ML BOTTLE TP SCH ×2 (08:39→21:49)
[2021-09-01] MEDS: TIMOLOL -XE 0.5% 5 ML BOTTLE EACHEYE SCH ×2 (09:00→17:15)
[2021-09-01] MEDS: BICALUTAMIDE 50 MG TABLET GT SCH (09:00)
[2021-09-01] MEDS: Z GUARD REMEDY 2 OZ OINT TP SCH ×2 (09:00→21:26)
[2021-09-01] MEDS: PYRIDOXINE HCL 50 MG TABLET GT SCH (09:00)
[2021-09-01] MEDS: DOCUSATE SODIUM LIQ 100 MG/10 ML UDC GT SCH ×2 (09:00→21:25)
[2021-09-01] MEDS: FERROUS SULFATE - FOR SA ONLY 330 MG/7.5 ML UDC GT SCH ×2 (09:00→17:15)
[2021-09-01] MEDS: BACLOFEN (10 MG) 10 MG TABLET GT SCH (09:00)
[2021-09-01] MEDS: VITAMINS A AND D 56.7 GM TUBE TP SCH (09:00)
[2021-09-01] MEDS: MULTIVIT W/MINERALS 1 TAB TABLET GT SCH (09:00)
[2021-09-01] MEDS: POTASSIUM CHLORIDE 20 MEQ POWDER PACKET GT SCH (09:00)
[2021-09-01] MEDS: POVIDONE-IODINE OINT 28.4 GM TUBE TP SCH ×9 (09:00)
[2021-09-01] MEDS: PANTOPRAZOLE 40 MG/PACK PACK GT SCH (09:00)
[2021-09-01] MEDS: PROSOURCE / PROSTAT (PYXIS) 30 ML UDC GT SCH ×3 (09:00→17:15)
[2021-09-01] MEDS: HYDROCODONE/APAP 5/325MG TABLET GT SCH (09:00)
[2021-09-01] MEDS: LORATADINE 10 MG TABLET GT SCH (09:00)
[2021-09-01] MEDS: Z GUARD REMEDY 4 OZ OINT TP SCH ×2 (09:00→21:26)
[2021-09-01] MEDS: DAKINS HALF STRENGTH (0.25%) 480 ML BOTTLE TOP SCH (09:00)
[2021-09-01] MEDS: ENOXAPARIN SODIUM 40 MG/0.4 ML DISP.SYRIN SQ SCH (09:00)
[2021-09-01] MEDS: FOLIC ACID 1 MG TABLET GT SCH (09:00)
[2021-09-01 12:45] VITALS: BP 125/75
--- NOTE | 2021-09-01 14:00 | NUR ---
Called and notified ANGELLA Porras regarding patient episode of respiratory distress, noted SOB after wound tx provided, patient on vent., kept HOB elevated 45 degrees to ease breathing anf prevent aspiration. RT at bedside assess patient and recommended ABG and to notify MD/GROOVER RUNNER with results. ABG result relayed to ANGELLA Rodriguez, current v/s temp. 100, HR 118/min, B/P 108/54. She ordered labs.: CBC, BMP, chest x ray, and UA. Noted and carried out. Kept patient safe and comfortable at all times. Closely monitored.
[2021-09-01 15:17] LABS: BILIRUBIN,URINE SMALL (NEGATIVE); COLOR,URINE DARK YELLOW (YELLOW); LEUKOCYTE ESTERASE ,URINE MODERATE (NEGATIVE); NITRITE, URINE NEGATIVE (NEGATIVE); PH,URINE 5.5 (5.0-8.0); PROTEIN,URINE 30 mg/dl (NEGATIVE); UGLUCOSE NEGATIVE (NEGATIVE)
[2021-09-01 16:18] LABS: BASOPHILS % (AUTO) 0.1 % (0.0-2.0); EOSINOPHILS % (AUTO) 0.8 % (0.0-6.0); HEMATOCRIT 32 % (39-51); HEMOGLOBIN 9.3 g/dL (13.5-17.5); LYMPHOCYTES # (AUTO) 0.5 K/uL (0.8-4.8); LYMPHOCYTES % (AUTO) 4.5 % (20.0-44.0); MEAN CORPUSCULAR HGB CONC 29 g/dl (31.0-36.0); MEAN CORPUSCULAR VOLUME 94 fL (80-96); MONOCYTES # (AUTO) 0.7 K/uL (0.1-1.30); MONOCYTES % (AUTO) 5.6 % (2.0-12.0); NEUTROPHILS # (AUTO) 10.7 K/uL (1.8-8.9); PLATELET COUNT (AUTO) 267 K/uL (150-450)
[2021-09-01 16:21] LABS: CALCIUM, SERUM 9.8 mg/dL (8.5-10.1); CREATININE 0.9 mg/dL (0.6-1.3)
[2021-09-01 16:50] LABS: BACTERIA,URINE Many /HPF (None Seen); SQUAMOUS EPITHELIAL CELL,UR Few /HPF (None Seen)
--- NOTE | 2021-09-01 18:30 | NUR ---
Notified ANGELLA Rodriguez regarding all lab results, chest x ray, UA, she wanted to wait for urine c and s results. She ordered to increase water flush to 350 ml q 6 hrs. Noted and carried out.
[2021-09-01] MEDS: NEPRO 1,000 ML BOTTLE GT PRN (19:00)
[2021-09-01 19:08] VITALS: BP 102/68
[2021-09-01] MEDS: LATANOPROST EYE DROP 0.005% 2.5 ML BOTTLE EACHEYE SCH (21:26)
[2021-09-01] MEDS: MAGNESIUM HYDROXIDE 30 ML UDC GT PRN (22:00)
[2021-09-01 23:53] VITALS: BP 105/52
[2021-09-02] MEDS: ALBUTEROL FS 2.5 MG/0.5 ML VIAL.NEB NEB SCH ×4 (02:27→20:28)
[2021-09-02] MEDS: IPRATROPIUM NEB FS 0.5 MG/2.5 ML AMPUL.NEB NEB SCH ×4 (02:27→20:28)
[2021-09-02] MEDS: FLUDROCORTISONE 0.1 MG TABLET GT SCH ×3 (05:22→17:56)
[2021-09-02] MEDS: POLYVINYL ALCOHOL 15 ML BOTTLE EACHEYE SCH ×3 (05:22→17:56)
[2021-09-02 07:52] VITALS: BP 112/75
[2021-09-02] MEDS: HYDROGEN PEROXIDE 480 ML BOTTLE TP SCH ×2 (08:03→20:28)
[2021-09-02] MEDS: POTASSIUM CHLORIDE 20 MEQ POWDER PACKET GT SCH (09:56)
[2021-09-02] MEDS: PROSOURCE / PROSTAT (PYXIS) 30 ML UDC GT SCH ×3 (09:56→16:53)
[2021-09-02] MEDS: PANTOPRAZOLE 40 MG/PACK PACK GT SCH (09:56)
[2021-09-02] MEDS: BACLOFEN (10 MG) 10 MG TABLET GT SCH (09:56)
[2021-09-02] MEDS: BICALUTAMIDE 50 MG TABLET GT SCH (09:56)
[2021-09-02] MEDS: LORATADINE 10 MG TABLET GT SCH (09:56)
[2021-09-02] MEDS: MULTIVIT W/MINERALS 1 TAB TABLET GT SCH (09:56)
[2021-09-02] MEDS: FOLIC ACID 1 MG TABLET GT SCH (09:56)
[2021-09-02] MEDS: TIMOLOL -XE 0.5% 5 ML BOTTLE EACHEYE SCH ×2 (09:56→16:53)
[2021-09-02] MEDS: FERROUS SULFATE - FOR SA ONLY 330 MG/7.5 ML UDC GT SCH ×2 (09:56→16:53)
[2021-09-02] MEDS: PYRIDOXINE HCL 50 MG TABLET GT SCH (09:56)
[2021-09-02] MEDS: DOCUSATE SODIUM LIQ 100 MG/10 ML UDC GT SCH ×2 (09:56→21:23)
[2021-09-02] MEDS: ENOXAPARIN SODIUM 40 MG/0.4 ML DISP.SYRIN SQ SCH (09:57)
[2021-09-02] MEDS: HYDROCODONE/APAP 5/325MG TABLET GT SCH (09:58)
[2021-09-02] MEDS: Z GUARD REMEDY 2 OZ OINT TP SCH ×2 (11:00→21:24)
[2021-09-02] MEDS: VITAMINS A AND D 56.7 GM TUBE TP SCH (11:00)
[2021-09-02] MEDS: POVIDONE-IODINE OINT 28.4 GM TUBE TP SCH ×9 (11:00)
[2021-09-02] MEDS: DAKINS HALF STRENGTH (0.25%) 480 ML BOTTLE TOP SCH (11:00)
[2021-09-02] MEDS: Z GUARD REMEDY 4 OZ OINT TP SCH ×2 (11:00→21:24)
[2021-09-02 12:20] VITALS: BP 115/62
[2021-09-02] MEDS: HYDROCODONE/APAP 5/325MG TABLET GT PRN (16:51)
--- NOTE | 2021-09-02 16:53 | NUR ---
MAURICIO emailed the pt.'s sister, Shae at [email or web address] to notify them that: A [employer] employee tested positive for COVID-19 this week. Residents and staff will continue receiving response testing as outlined by [facility] Department of Public Health. We will continue to implement [facility] infection control protocols and continue screening employees before every shift. [facility] continues to follow infection control protocols and screen our residents and staff daily for symptoms.
--- NOTE | 2021-09-02 18:15 | NUR ---
Notified ANGELLA Porras that pt is tachypneic at 38-40 cpm, O2 sat 89-90 at FiO2 50%, T 99 F BP 106/58 HR 73. Pt's extremities are cold. Warm blankets provided. ANGELLA Porras ordered to increase AC from 14 to 20.
[2021-09-02 19:30] VITALS: BP 101/63
--- NOTE | 2021-09-02 19:49 | NUR ---
PATIENT SISTER MYLES MADE AWARE OF SANDY,PATIENT HAVING SOB AND HIGH RESPIRATION WITH DESATURATION.FI02 INCREASED TO 50% SATING 89-93%.PATIENT EXTREMITIES IS COLD TEMP 97.2M ALSO NOTIFIED THAT LABS AND CXR DONE YESTERDAY. kEPT COMFORTABLE AND WARM. WILL CONTINUE TO MONITOR.
--- NOTE | 2021-09-02 20:04 | NUR ---
PATIENT CAREGIVER RENÉ MADE AWARE OF SANDY.APPRECIATIVE OF THE CALL.
--- NOTE | 2021-09-02 20:30 | NUR ---
ASSESSED PATIENT AT THIS TIME. VENT SETTINGS AT AC 20, 450, 40% AT THIS TIME. PT SP02 AT 99% AT THIS TIME. WILL CONT TO MONITOR PATIENT. RN AWARE.
[2021-09-02] MEDS: LATANOPROST EYE DROP 0.005% 2.5 ML BOTTLE EACHEYE SCH (21:24)
[~2021-09-03] VITALS: Ht 170.2 cm; Wt 92.5 kg
--- NOTE | 2021-09-03 00:32 | NUR ---
SONIA CHÁVEZ WAS CALLED ON 09/02/21 AT 2310. RT AT BEDSIDE BAGGING THE PATIENT AND ANOTHER DOING COMPRESSIONS. WAS ABLE TO GET A RHYTHM AND PT WAS TRANSFERRED TO ICU.
--- NOTE | 2021-09-03 01:21 | NUR ---
225 -LIFE SKILLS COORDINATOR at bedside ,patient is unresponsive ,pale in color,unable to read O2 sats ,bagged 100% oxygen 2254 - CARBON PAPER COATING MACHINE SETTER was called,continue to bagged pt,pulse is weak,unable to read with pulse oximetry,low perfusion,BS low reading,D50% given IV BP 67/43 0.9 NS 500ml bolus given 2306 - re check BS 180mg/dl, still unresponsive 2309 - Arlet Prescott called,no pulse.CPR initiated.Left message to Dr. Santillan 2310- Asystole 1 mg Epinephrine given,continues CPR ,ER doctor at bedside 231- Asystole ,Sodium Bicarb given IV 231 -Asystole 1 mg Epinephrine given,continues CPR 231 -Ventricular tachycardia ,shocked wit 120 joule 2318 -Epinephrine 1 mg given IV 2320 - able to obtained pulse 94 ,BP 153/107 2322 -Transferred to ICU accompanied by Arlet prescott team 2346 - Arlet prescott called ,asystole Epinephrine given x 2 and continuous CPR 2353 - no pulse,no respiration, no BP ,asystole.Patient ,09/02/21 .ICU nurse notified Dr. Magana ([facility] credit administration officer) Will left message to (primary physician) 0000- Notified responsible democrat sister Shae Tel. [phone] and left message to Maciej(caregiver) 0030 - called [employer] # [id number] per Russell not a candidate for organ donation. 0035- Body transferred to [facility],body tag attached.
[~2021-09-03 02:22] MED LIST changes: -ACET650S11 RC; +ACETAMINOPHEN 650 MG/20 ML UDC- SA PATIENTS-FEVER ONLY GT PRN; +ACETAMINOPHEN 650 MG/20.3 ML UDC GT PRN; -ASPI-1169 GT; -ATOR10TA GT; +BISACODYL SUPP (10 MG) 10 MG/SUPP.RECT SUPP.RECT RC PRN; +CALCIUM CHLORIDE 1,000 MG/10 ML DISP.SYRIN IV ONE; +CEFT2VIA14 IV; +CIPR5DRO18 EACHEYE; +DEXTROSE 50%-WATER 50 ML DISP.SYRIN IV ONE; +DEXTROSE 50%-WATER 50 ML DISP.SYRIN IVP ONE; +ENOX40DI SQ; +EPINEPHRINE (1:10,000) SYRINGE 1 MG/10 ML DISP.SYRIN IVP ONE; +FLUD0.1T GT; -HYDR1SOL TD; +HYDROGEN PEROXIDE 480 ML BOTTLE TP PRN; -LACT-209 GT; -LISI-768 GT; -MERO500V23 IV; -NA P133E RC; +NUT.237L67 GT; -NUTR1PAC14 GT; +ONDANSETRON 4 MG TAB.RAPDIS GT PRN; -PETR113O TP; +POTA20PA3 GT; -POVI30LI TP; -PRUNELAX GT; +SODIUM BICARBONATE SYR 50 MEQ/50 ML DISP.SYRIN IV ONE; +THERAHONEY TD; +TUBERCULIN,PURIF.PROT.DERIV. 5 TU/0.1 ML VIAL ID SCH; -VANC250V IV; +Z GUARD REMEDY 4 OZ OINT TP PRN
--- NOTE | 2021-09-03 10:44 | NUR ---
SS Note: MAURICIO received voicemail form Shae stating that Maciej CHARLTON from [facility] needs details about pt.'s for [facility] to have on file. Including: time of , who called the time of , & cause of . Shae also wanted to discuss what the next steps are. MAURICIO called Shae and told her that cause of will be written on certificate and Maciej can go through medical records department to receive the other details she is requesting. MAURICIO provided medical records number. MAURICIO transferred Shae to Nursing hydro generation supervisor who can address the questions regarding the next steps in regards to moving the body to home. Shae is agreeable.
--- NOTE | 2021-09-03 16:40 | NUR ---
SW emailed the pt.'s sister, Shae ([email or web address]) to remind her that she still needs to sign the last 2 admission packets that were sent to her and mail them back with prepaid envelopes provided.
== END | disposition short-term general hospital (02) | DRG 207 ==
LOC: UNDOADMIN 08-14 00:01 → SA 08-14 00:01
PROVIDERS: ADMIT Internal Medicine; ATTEND Internal Medicine
PROC: 5A1955Z Respiratory Ventilation, Greater than 96 Consecutive Hours (ICD-10-PCS; principal; 2021-08-14)
PROC: 05HB33Z Insertion of Infusion Device into Right Basilic Vein, Percutaneous Approach (ICD-10-PCS; 2021-08-22)
DX: J96.21 Acute and chronic respiratory failure with hypoxia (principal); L89.214 Pressure ulcer of right hip, stage 4; G92.8 Other toxic encephalopathy; I21.4 Non-ST elevation (NSTEMI) myocardial infarction; J69.0 Pneumonitis due to inhalation of food and vomit; N17.0 Acute kidney failure with tubular necrosis; E87.2 Acidosis; I87.311 Chronic venous hypertension (idiopathic) with ulcer of right lower extremity; L97.419 Non-pressure chronic ulcer of right heel and midfoot with unspecified severity; G93.40 Encephalopathy, unspecified; I25.10 Atherosclerotic heart disease of native coronary artery without angina pectoris; Z86.73 Personal history of transient ischemic attack (TIA), and cerebral infarction without residual deficits; Z79.01 Long term (current) use of anticoagulants; Z79.51 Long term (current) use of inhaled steroids; Z79.899 Other long term (current) drug therapy; D64.9 Anemia, unspecified; R74.01 Elevation of levels of liver transaminase levels; Z85.47 Personal history of malignant neoplasm of testis; N40.0 Benign prostatic hyperplasia without lower urinary tract symptoms; M20.41 Other hammer toe(s) (acquired), right foot; M20.42 Other hammer toe(s) (acquired), left foot; L97.519 Non-pressure chronic ulcer of other part of right foot with unspecified severity; F43.10 Post-traumatic stress disorder, unspecified; F41.9 Anxiety disorder, unspecified; F32.A Depression, unspecified; I10 Essential (primary) hypertension; I73.9 Peripheral vascular disease, unspecified; Z74.01 Bed confinement status; Z74.09 Other reduced mobility; Z93.1 Gastrostomy status; L89.629 Pressure ulcer of left heel, unspecified stage; L89.529 Pressure ulcer of left ankle, unspecified stage; L89.899 Pressure ulcer of other site, unspecified stage; M62.462 Contracture of muscle, left lower leg; M62.461 Contracture of muscle, right lower leg; M62.562 Muscle wasting and atrophy, not elsewhere classified, left lower leg; M62.561 Muscle wasting and atrophy, not elsewhere classified, right lower leg
CPT/HCPCS: 31720; 36410; 36415; 36600; 71045-TC; 80048-TC; 81001; 82803-TC; 82962-TC; 85025-TC; 87086-TC; 92950-TC; 94003-TC; 94760-TC; 94762-TC; 94799-TC; A4217; A4623; A6253; A7526; J0171; J1650; J1940; J3490; U0003